=== PATIENT | male | born 1945 | race Caucasian/White ===

== ENCOUNTER 2016-07-13 09:22 | Inpatient (IN) | payer MEDICARE ==
[~2016-07-13] VITALS: Ht 182.9 cm; Wt 119.5 kg
--- NOTE | ~2016-07-13 | CN ---
PATIENT NAME:MAKENZIE CUNHA MEDICAL RECORD: [id number] : 46 LOCATION:D. D.2110 ADMIT DATE: 07/13/16 ACCOUNT: [id number] CONSULTING PHYSICIAN: ENRRIQUE MEZA MD REFERRING PHYSICIAN: MILE BARRERA M.D. DATE OF CONSULTATION: 07/15/2016 CONSULT REQUESTING PHYSICIAN: Chai Arriaza MD REASON FOR CONSULTATION: Acute exacerbation of chronic obstructive pulmonary disease, deep vein thrombosis, right lower extremity. HISTORY OF PRESENT ILLNESS: Mr. Cunha is a 70-year-old gentleman who has a history of recurrent DVT and he is status post Radha filter placement. The patient was on Coumadin that was on hold for 4 days and he came in with worsening swelling of the lower extremity. Also, he complains of cough, wheezing and shortness of breath. He still continues to smoke. REVIEW OF SYSTEMS: Mainly in the history of present illness. PAST MEDICAL HISTORY: 1. COPD. 2. Peripheral vascular disease. 3. Recurrent deep vein thrombosis. 4. History of cerebrovascular accident. 5. Peripheral neuropathy. 6. Gastroesophageal reflux disease. 7. Depression. PAST SURGICAL HISTORY: 1. Tonsillectomy. 2. Tympanoplasty. 3. Laminectomy. ALLERGIES: HE IS ALLERGIC TO NSAIDS, PENICILLIN, CEPHALEXIN, ENOXAPARIN, IODINE AND POLYMYXIN B. PRESENT MEDICATIONS: On [employer] was reviewed. PERSONAL AND SOCIAL HISTORY: The patient is still a current everyday smoker. He is in the process of quitting. He is a nondrinker. FAMILY HISTORY: Significant for cardiovascular diseases. PHYSICAL EXAMINATION: GENERAL: Now, the patient is lying comfortably at bed. He is not in acute distress. VITAL SIGNS: The blood pressure is 153/95, pulse is 90, respiration 20, temperature 97.3, SpO2 is 95% on room air. HEENT: Conjunctivae pink, sclerae nonicteric. NECK: Supple, no JVD. CHEST: Excursion is minimal on both sides. There is prolonged expiration with wheezing. HEART: Rhythm regular, normal sound, no murmur. ABDOMEN: Soft. Bowel sounds present. No hepatosplenomegaly. CONSULT REPORT [id number] MAKENZIE CUNHA RECTAL: Deferred. EXTREMITIES: No cyanosis. There is a pressure sore, stasis sore on the right leg. There is a 2+ pedal edema. CENTRAL NERVOUS SYSTEM: The patient is awake and alert. There is no obvious cranial nerve abnormality. The gait was not tested. CHEST RADIOGRAPH: There is infiltrate, possible atelectasis of right middle lobe. LABORATORY DATA: CBC: WBC 4.5, hemoglobin 14.7, hematocrit 45.7, platelet count 178. Chemistry: Sodium 138, potassium 4.8, BUN is 23, creatinine is 1, glucose 153. IMPRESSION: 1. Acute exacerbation of chronic obstructive pulmonary disease. 2. Pneumonia, right middle lobe. 3. [id number] deep vein thrombosis. 4. Tobacco dependence syndrome. 5. Gastroesophageal reflux disease. RECOMMENDATION: 1. The patient was counseled to quit smoking. 2. Discontinue doxycycline, start him on Levaquin IV. 3. Check the CT scan of the chest. 4. Methylprednisolone IV. 5. Brovana and budesonide nebulizer. 6. Albuterol ipratropium nebulizer. 7. Xarelto 15 mg b.i.d. for 21 days, then [address] Arriaza, once again thanks for involving me in the care of Mr. Cunha. TRANSINT:[id number] Voice Confirmation ID: [id number] DOCUMENT ID: [id number] ENRRIQUE MEZA MD CC: CHAI ARRIAZA MD [id number] DICTATION DATE: 07/15/16 1458 EQUITY STRUCTURER: 07/15/16 2331 ADM IN [facility] [address] [place] [address]
--- NOTE | ~2016-07-13 | EC ---
PATIENT:MAKENZIE DESAI DATE OF SERVICE: 07/13/16 SEX: M MEDICAL RECORD: [id number] DATE OF : [birth year] LOCATION:D. D.211 AGE OF PATIENT: 70 ADMISSION DATE: 07/13/16 REFERRING PHYSICIAN: INTERPRETING PHYSICIAN: SYDNEY PONCE M.D. ECHOCARDIOGRAM REPORT ECHO CHARGES 4 ECHO COMPLETE CLINICAL DIAGNOSIS: SYNCOPE ECHOCARDIOGRAPHIC MEASUREMENTS (adult normal given) AC root (d.<3.7cm) 3.2 LV Septum d (<1.2 cm> 1.3 Valve Excursion 1.6 LV Septum (systole) 1.8 Left Atria (s.<4.0cm> 2.6 LVPW d(<1.2cm) 1.2 RV (d.<2.3cm) 3.1 LVPW (sytole) 1.7 LV diastole(<5.6CM) 4.2 MV E-F(>70mm/sec) LV systole 1.4 LVOT Diameter 2.1 MV exc.(>10mm) Est.ejection fraction (50-75%) Pericardial Effusion N DOPPLER: LVIT A 93.0 E 58.0 LA RVSP LVOT 93.0 AOP1/2T Asc. Ao 136 RVOT RA PA AV Gradient Peak 7.4 AV Mean 3.4 AV Area 3.0 MV Gradient Peak 4.9 MV Mean 1.6 MV Area COMMENTS: Vacuum Extractor Operator: Derrick PALACIOOE Secured Entrance Monitor:Juan Jose Ponce TAPE# PACS DATE OF SERVICE: 07/15/2016 REFERRING PHYSICIAN: Bobby Parish MD. INDICATION: Syncope. DESCRIPTION: Left ventricle demonstrates left ventricular hypertrophy. No wall motion abnormalities are seen. Estimated ejection fraction is 55%. Mitral valve is structurally normal. There is no regurgitation or prolapse seen. Left atrium is normal size. The aortic valve is trileaflet. There is no stenosis or ECHOCARDIOGRAM REPORT [id number] MAKENZIE DESAI regurgitation seen. Right ventricle is normal size and function. Tricuspid valve is normal. There is no regurgitation noted. Right atrium is normal size. There is no pericardial effusion seen. IMPRESSION: 1. Left ventricular hypertrophy with preserved ejection fraction of 55%. 2. No valvular abnormalities are noted. TRANSINT:[id number] Voice Confirmation ID: [id number] DOCUMENT ID: [id number] SYDNEY PONCE M.D. CC: [id number] DICTATION DATE: 07/15/16 1540 BUFFING WHEEL INSPECTOR: 07/15/16 1441 DIS IN 07/19/[address] [facility] [address] [id number]
[~2016-07-13 09:22] MED LIST: CLEOCIN HCL300 MG PO; LYRICA200 MG PO; XARELTO10 MG PO; ZOLOFT100 MG PO; [UNRECOGNIZED DRUG - OTHER] SL
[2016-07-13 10:39] LABS: BASOPHILS 0.3 % (0-2); EOSINOPHILS 2.8 % (0-7); HEMATOCRIT 39.2 % (42.0-54.0); HEMOGLOBIN 13.4 g/dL (13.5-17.5); IMMATURE GRANULOCYTES 0.6 % (0-5); MCH 31.5 pg (26.0-34.0); MCHC 34.2 g/dL (31.0-37.0); MCV 92.2 fL (80.0-100.0); MEAN PLATELET VOLUME 10.4 fL (7.4-10.4); MONOCYTES 15.8 % (2-11); NEUTROPHILS 65.5 % (40-80); PLATELET COUNT 175 10x3/uL (130-400); RBC 4.25 10x6/uL (4.20-6.10); RDW 15.8 % (11.5-14.5); WBC 6.7 10x3/uL (4.8-10.8)
[2016-07-13 10:51] LABS: INR 1.56 (0.85-1.17); PROTIME 18.6 SECONDS (11.6-15.0)
[2016-07-13 11:05] LABS: ALBUMIN 1.9 g/dL (3.4-5.0); ALKALINE PHOSPHATASE 98 U/L (46-116); ALT (SGPT) 33 U/L (10-68); BILIRUBIN - TOTAL 0.22 mg/dL (0.2-1.3); CALC OSMOLALITY 279 mosm/kg (275-300); CALCIUM 8.4 mg/dL (8.5-10.1); CHLORIDE - SERUM 105 mmol/L (98-107); GLUCOSE 99 mg/dL (74-106); PROTEIN - SERUM 6.6 g/dL (6.4-8.2); SODIUM 139 mmol/L (136-145); UREA NITROGEN 18 mg/dL (7-18); eGFR NON AFRICAN AMERICAN 79 mL/min (90-120)
[2016-07-13 11:25] LABS: CREATINE KINASE 356 UL (21-232); MAGNESIUM - SERUM 1.8 mg/dL (1.8-2.4); PRO BNP 421 pg/mL (0-125)
[2016-07-13 11:26] LABS: CKMB 1.5 U/L (0.0-3.6); TROPONIN-I 0.017 ng/mL (0.000-0.060)
[2016-07-13 15:19] LABS: APPEARANCE CLEAR (CLEAR); BILIRUBIN NEGATIVE (NEGATIVE); COLOR YELLOW (YELLOW); GLUCOSE NEGATIVE (NEGATIVE); KETONE NEGATIVE (NEGATIVE); LEUKOCYTE ESTERASE NEGATIVE (NEGATIVE); NITRITE NEGATIVE (NEGATIVE); PROTEIN 3+ mg/dL (NEGATIVE); SPECIFIC GRAVITY 1.015 (1.005-1.020); UROBILINOGEN NORMAL (NORMAL)
[2016-07-13 15:20] LABS: BACTERIA NONE SEEN /hpf (NONE SEEN); EPITHELIAL CELLS 0-5 /hpf (0-5); RED CELLS - URINE 0-5 /hpf (0-5); WHITE CELLS - URINE NSEEN /hpf (0-5)
[2016-07-13] MEDS ORDERED: LASIX20 MG PO (18:49)
[2016-07-13] MEDS ORDERED: COUMADIN10 MG PO (18:50)
[2016-07-13 18:53] VITALS: BP 154/83; BMI 34.4
--- NOTE | 2016-07-13 19:07 | NUR ---
PATIENT BROUGHT TO ROOM 2109 WITH DYSPNEA AND COPD, HE HAS EDEMATOUS BILATERAL LEGS, HE HAS BANADAGE TO RIGHT LEG FOR WEEPING ARE, IV IS 20 G IN LEFT BREAST.
--- NOTE | 2016-07-13 19:08 | NUR ---
PROVIDED PATIENT WITH URINAL.
[2016-07-13 20:00] VITALS: BP 136/71
--- NOTE | 2016-07-13 23:50 | NUR ---
INIITAL ROUNDS COMPELTED AT 1915 HRS. PT HAD C/O PAIN TO BILAT LOWER LEGS. NS AT 15CC/HRA ND MORPHINE MDM DEVELOPER 1MG Q10 MINS WITH 10MG Q4HR LO INITIATED TO IV TO L BREAST. IV PATENT. O2 2LNC. GRACIE SPLOTCHES NOTED TO TORSO AND BACK. 2+ EDEMA TO LEGS. LOWER LEGS DARK WITH SORES NOTED. WEEPING SORES TO R LOWER LEG. DRESSING INTACT. PT CURRETNLY RESTING WITH EYES CLOSED. RESP EVEN AND REGULAR. SR UP X2, CALL LIGHT WITHIN REACH.
[2016-07-14] VITALS: BP 101/80
--- NOTE | 2016-07-14 00:56 | NUR ---
PT REFUSES TELEMETRY AT THIS TIME. SR PER CM. REFUSES SCD'S. CARDIAC MONITORL RETURNED TO AUTOMOBILE TESTER STATION. WILL CONTINUE TO MONITOR. SR UP X2, CALL LIGHT WITHIN REACH.
--- NOTE | 2016-07-14 03:38 | NUR ---
PT RESTING WITH EYES CLOSED. RESP EVEN AND REGULAR. SR UP X2, CALL LIGHT WITHIN REACH.
[2016-07-14 04:00] VITALS: BP 132/67
--- NOTE | 2016-07-14 04:36 | NUR ---
PT RESTING WITH EYES CLOSED. RESP EVEN AND REGULAR. SR UP X2, CALL LIGHT WITHIN REACH AND BED ALARM ON.
--- NOTE | 2016-07-14 05:46 | NUR ---
VSS THROUGHOUT NIGBT. PT STATES MORPHINE SOFTWARE SYSTEMS ANALYST CONTROLLING BILAT LEG PAIN. NEEDS MET; WILL CONTINUE TO MONITOR.
[2016-07-14 08:00] VITALS: BP 132/84
[2016-07-14 12:46] LABS: BASOPHILS 0.1 % (0-2); EOSINOPHILS 2.9 % (0-7); HEMATOCRIT 41.1 % (42.0-54.0); HEMOGLOBIN 13.2 g/dL (13.5-17.5); IMMATURE GRANULOCYTES 0.4 % (0-5); LYMPHOCYTES 16.3 % (15-50); MCH 30.3 pg (26.0-34.0); MCHC 32.1 g/dL (31.0-37.0); MONOCYTES 13.8 % (2-11); NEUTROPHILS 66.5 % (40-80); PLATELET COUNT 166 10x3/uL (130-400); RBC 4.36 10x6/uL (4.20-6.10); RDW 16.2 % (11.5-14.5); WBC 7.2 10x3/uL (4.8-10.8)
[2016-07-14 12:51] LABS: MCV 94.3 fL (80.0-100.0)
[2016-07-14 12:58] LABS: INR 1.71 (0.85-1.17)
[2016-07-14 13:09] LABS: CALC OSMOLALITY 283 mosm/kg (275-300); CALCIUM 7.9 mg/dL (8.5-10.1); CARBON DIOXIDE 32.6 mmol/L (21.0-32.0); CHLORIDE - SERUM 104 mmol/L (98-107); GLUCOSE 113 mg/dL (74-106); POTASSIUM - SERUM 4.2 mmol/L (3.5-5.1); SODIUM 141 mmol/L (136-145); UREA NITROGEN 17 mg/dL (7-18); eGFR NON AFRICAN AMERICAN 79 mL/min (90-120)
[2016-07-14 16:00] VITALS: BP 136/60
[2016-07-14 17:16] LABS: CKMB 1.2 U/L (0.0-3.6)
[2016-07-14 17:21] LABS: CREATINE KINASE 235 UL (21-232); TROPONIN-I < 0.017 ng/mL (0.000-0.060)
--- NOTE | 2016-07-14 19:11 | NUR ---
ALERT AND OREINTED X4. RESTING IN BED. DOPLER COMPLETE. CTA CANCELLED PER . RECENT SCAN COMPLETED 07/13/16 IN ER. EKG COMPLETE PLACED ON CHART. DENIES ANY NEEDS. HAND OFF REPORT TO ANUM BELL.
--- NOTE | 2016-07-14 20:08 | NUR ---
INITIAL ROUNDS COMPLETEDA T 191 HRS. PT RESTING WITH EYES CLOSED. RESP EVEN AND REGULAR. ASSESSMENT COMPLETED AT 194 HRS. IV TO L ROZ WITH NS AT 15CC/HR AND MORPHINE MANAGER OF PMO 1MG Q 10 MINUTES WITH 10 MG Q 4 HR LO. IV PATENT. LUNGS DIMINISHED IN BASES BILAT. GENERALIZED EDEMA NOTED. 2+ PITTING EDEMA TO LOWER LEGS. LOWER LEGS RED WITH SORES. L LOWER LEG DRESSING SATURATED. PT DENIES ANY DISCOMFORT AND REFUSES SCD'S. SR UP X2, CALL LIGHT WITHIN REACH.
--- NOTE | 2016-07-14 22:10 | NUR ---
PT STATING MORPHINE GAMING PIT BOSS NOT WORKING. EXPLAINED TO PT THAT HE IS MAXED OUT AT 10 MG. WILL CONTINUE TO MONITOR.
[2016-07-14 22:11] VITALS: BP 173/71
--- NOTE | 2016-07-14 22:40 | NUR ---
DRESSING TO R LEG CHANGED EARLIER IN SHIFT. 2 WOUNDS APPROX 2CM X3 CM AND 2CM X2CM NOTED TO ANTERIOR LOWER LEG. OOZING SMALL AMOUNT OF SEROUS FLUID. WOUNDS COVERED WITH ADAPTIC, 4X4'S AND WRAPPED IN BELINDA. PT TOLERATED ACTIVITY WELL.
[2016-07-14 23:37] LABS: CKMB 0.9 U/L (0.0-3.6); CREATINE KINASE 191 UL (21-232)
[2016-07-14 23:38] LABS: TROPONIN-I < 0.017 ng/mL (0.000-0.060)
[2016-07-15] VITALS: BP 157/72
--- NOTE | 2016-07-15 00:39 | NUR ---
PT RESTING WITH EYES CLOSED. RESP EVEN AND REGULAR. SR UPX2,CALL LIGHT WITHIN REACH.
--- NOTE | 2016-07-15 02:46 | NUR ---
PT RESTING WITH EYES CLOSED. RESP EVEN AND REGULAR. SR UP X2, CALL LIGHT WITHIN REACH.
--- NOTE | 2016-07-15 04:38 | NUR ---
COFFEE GIVEN PER REQUEST. NEW MORPHINE SYRINGE PLACED IN COATER SMOKING PIPE. WILL CONTINUE TO MONITOR.
[2016-07-15 06:16] LABS: BASOPHILS 0 % (0-2); EOSINOPHILS 0 % (0-7); HEMATOCRIT 45.5 % (42.0-54.0); HEMOGLOBIN 14.7 g/dL (13.5-17.5); IMMATURE GRANULOCYTES 0.4 % (0-5); LYMPHOCYTES 9.9 % (15-50); MCHC 32.3 g/dL (31.0-37.0); MCV 92.9 fL (80.0-100.0); MEAN PLATELET VOLUME 10.8 fL (7.4-10.4); MONOCYTES 1.7 % (2-11); PLATELET COUNT 178 10x3/uL (130-400); RDW 15.4 % (11.5-14.5); WBC 5.5 10x3/uL (4.8-10.8)
[2016-07-15 06:17] VITALS: BP 136/92
--- NOTE | 2016-07-15 06:26 | NUR ---
VSS THROUGHOUT NIGHT. PT STATED MORPHINE UNDERGROUND SUPERVISOR CONTROLLING PAIN. NEEDS MET; WILL CONTINUE TO MONITOR.
[2016-07-15 06:49] LABS: INR 1.54 (0.85-1.17); PROTIME 18.5 SECONDS (11.6-15.0)
[2016-07-15 07:47] LABS: CALCIUM 7.8 mg/dL (8.5-10.1); CARBON DIOXIDE 30.2 mmol/L (21.0-32.0); CHLORIDE - SERUM 102 mmol/L (98-107); CKMB 0.9 U/L (0.0-3.6); CREATINE KINASE 198 UL (21-232); GLUCOSE 153 mg/dL (74-106); SODIUM 138 mmol/L (136-145); eGFR NON AFRICAN AMERICAN 79 mL/min (90-120)
[2016-07-15 07:49] LABS: CALC OSMOLALITY 282 mosm/kg (275-300); TROPONIN-I < 0.017 ng/mL (0.000-0.060); UREA NITROGEN 23 mg/dL (7-18)
[2016-07-15 07:50] LABS: POTASSIUM - SERUM 4.8 mmol/L (3.5-5.1)
[2016-07-15 08:45] VITALS: BP 170/103
[2016-07-15 12:47] VITALS: BP 153/95
[2016-07-15 13:25] VITALS: Ht 182.9 cm; Wt 119.5 kg
[2016-07-15 17:26] VITALS: BP 183/106
--- NOTE | 2016-07-15 19:40 | NUR ---
ALERT/ORIENTED X 4. READING RECOVERY TEACHER AND RADIO ENGINEER ASSISTING HIM BACK INTO BED FROM . DENIES ANY NEEDS. PLACED CALL LIGHT AND BEDSIDE TABLE WITH PERSONAL ITEMS IN REACH.
[2016-07-15 19:45] VITALS: BP 144/75
--- NOTE | 2016-07-15 22:17 | NUR ---
GAVE A SNACK OF APPLESAUCE AND JER CRACKERS/PEANUT BUTTER PER REQUEST. NO OTHER NEEDS VOICED.
--- NOTE | 2016-07-16 00:15 | NUR ---
ADMIN SCHED MEDS AND DILAUDID 0.5 MG IV PER REQUEST FOR C/O LEG PAIN LEVEL 7 ON NUMBER SCALE, DESCRIBED BURNING, ACHING & THROBBING. REQUESTED A SANDWICH AND MORE ICE WATER.
[2016-07-16 00:29] VITALS: BP 135/78
--- NOTE | 2016-07-16 05:20 | NUR ---
RESTING WITH EYES CLOSED. AROUSES EASILY. DENIES ANY NEEDS.
[2016-07-16 05:53] LABS: BASOPHILS 0 % (0-2); EOSINOPHILS 0 % (0-7); HEMATOCRIT 42.6 % (42.0-54.0); HEMOGLOBIN 13.7 g/dL (13.5-17.5); IMMATURE GRANULOCYTES 0.3 % (0-5); LYMPHOCYTES 3.7 % (15-50); MCH 30.2 pg (26.0-34.0); MCHC 32.2 g/dL (31.0-37.0); MCV 93.8 fL (80.0-100.0); MEAN PLATELET VOLUME 10.4 fL (7.4-10.4); MONOCYTES 5.1 % (2-11); NEUTROPHILS 90.9 % (40-80); PLATELET COUNT 190 10x3/uL (130-400); RBC 4.54 10x6/uL (4.20-6.10); RDW 15.7 % (11.5-14.5)
[2016-07-16 06:04] LABS: INR 4.99 (0.85-1.17); WBC 9.6 10x3/uL (4.8-10.8)
[2016-07-16 06:12] LABS: CALCIUM 7.7 mg/dL (8.5-10.1); CARBON DIOXIDE 27.2 mmol/L (21.0-32.0); POTASSIUM - SERUM 4.2 mmol/L (3.5-5.1)
[2016-07-16 06:22] LABS: CREATININE - SERUM 1.3 mg/dL (0.6-1.3)
[2016-07-16 06:36] LABS: PROTIME 47.2 SECONDS (11.6-15.0)
[2016-07-16 09:12] VITALS: BP 142/68
--- NOTE | 2016-07-16 10:09 | NUR ---
WOUND CARE CONSULT: PT HAS TWO SCABBED AREAS ON HIS RIGHT LOWER LEG. HE STATES THEY STARTED BLISTERS (WHEN HIS LEGS BECAME EDEMATOUS A COUPLE WEEKS AGO) AND OPENED INTO SORES. BILATERAL LOWER LEGS ARE HYPERPIGMENTED TO JUST BELOW KNEES AND ARE HAIRLESS. RIGHT LEG IS TENDER TO THE TOUCH. PT STATES THE EDEMA HAS DECREASED AND WITH IT SO HAS THE "WEEPING". HE IS SITTING IN RECLINER WITH HIS LEGS ELEVATED. DUE TO HIS HX OF DVT WOUND CARE DOES NOT RECOMMEND APPLYING UNNA BOOTS, BUT IF EDEMA AND WEEPING RETURN WE CAN DO LOOSE WRAPS WITH 4X4S AND KERLIX. WOUND CARE WILL CONTINUE TO MONITOR.
[2016-07-16 12:11] VITALS: BP 148/93
--- NOTE | 2016-07-16 18:17 | NUR ---
ALERT AND ORIENTED X4. SITTING UP IN BED. COMPLAINS OF PAIN. DILAUDID FREQUENCY CHANGED TO Q4 INSTEAD OF Q6. REPORTS Q4 MIGHT BE TOO LONG WELL. IV ANTIBIOTICS INFUSING PER ORDER. DENIES ANY NEEDS. CONTINUE PLAN OF CARE AND SAFETY PRECAUTIONS.
--- NOTE | 2016-07-16 19:28 | NUR ---
ALERT/AWAKE WATCHING TV. REQUESTED PAIN MEDICATION FOR LEG PAIN LEVEL 7 ON NUMBER SCALE. IV IN L CHEST WITH NS INFUSING 15ML/HR. 02 AT 2L/NC. RR 20 EVEN U/L.
[2016-07-16 20:18] VITALS: BP 128/83
--- NOTE | 2016-07-16 23:40 | NUR ---
ADMIN DILAUDID 0.5MG IV PER REQUEST FOR C/O LEG PAIN LEVEL 7 ON NUMBER SCALE. SUPERVISOR INTERNATIONAL RESERVATIONS PRESENT IN ROOM TAKING VS. REQUESTED MORE ICE WATER.
[2016-07-16 23:57] VITALS: BP 146/84
--- NOTE | 2016-07-17 03:40 | NUR ---
ADMIN DILAUDID 0.5MG PER REQUEST FOR PAIN. REQUESTED FAN ADJ AND MORE ICE WATER. EMPTIED URINAL.
[2016-07-17 03:52] VITALS: BP 134/95
[2016-07-17 06:49] LABS: BASOPHILS 0 % (0-2); EOSINOPHILS 0 % (0-7); HEMATOCRIT 42.9 % (42.0-54.0); HEMOGLOBIN 13.8 g/dL (13.5-17.5); IMMATURE GRANULOCYTES 0.5 % (0-5); LYMPHOCYTES 3.9 % (15-50); MCH 29.7 pg (26.0-34.0); MCHC 32.2 g/dL (31.0-37.0); MCV 92.5 fL (80.0-100.0); MEAN PLATELET VOLUME 10.1 fL (7.4-10.4); MONOCYTES 3.6 % (2-11); PLATELET COUNT 180 10x3/uL (130-400); RBC 4.64 10x6/uL (4.20-6.10); RDW 15.8 % (11.5-14.5); WBC 8.2 10x3/uL (4.8-10.8)
[2016-07-17 07:14] LABS: INR 4.54 (0.85-1.17); PROTIME 43.7 SECONDS (11.6-15.0)
[2016-07-17 07:16] LABS: ALBUMIN 1.9 g/dL (3.4-5.0); BILIRUBIN - TOTAL 0.22 mg/dL (0.2-1.3); CALCIUM 7.1 mg/dL (8.5-10.1); CARBON DIOXIDE 29.1 mmol/L (21.0-32.0); CREATININE - SERUM 1.2 mg/dL (0.6-1.3); POTASSIUM - SERUM 4.1 mmol/L (3.5-5.1); PROTEIN - SERUM 6.2 g/dL (6.4-8.2)
[2016-07-17 07:30] VITALS: BP 142/79
[2016-07-17 12:30] VITALS: BP 148/82
--- NOTE | 2016-07-17 12:33 | NUR ---
Nutrition follow-up: Visited with pt this am re: unhappy with diet order for NCS Pt reports his blood glucose is not high and he wants his diet changed to regular. After chart review RDN changed diet to regular. Pt with 100% intake of meals; labs reviewed Wt: 253# Edema better. RDN following.
--- NOTE | 2016-07-17 14:13 | NUR ---
PATIENT RESTING QUIETLY WITH EYES CLOSED, RESPIRATIONS ARE DEEP AND EVEN. DID NOT DISTURB.
--- NOTE | 2016-07-17 15:10 | NUR ---
PATIENT IS RESTING WITH HOB UP IN SEMI FOWLERS. HAVE PROPPED HIS FEET UP ON TWO PILLOWS FOR COMFORT. IV DILAUDID GOVEN PER ORDERS. CALL LIGHT IS WITHIN HIS REACH. MONITORING.
[2016-07-17 16:30] VITALS: BP 150/77
[2016-07-17 19:00] VITALS: BP 136/79
--- NOTE | 2016-07-17 20:02 | NUR ---
PT RECEIVED LYING IN BED WATCHING TV AT THIS TIME. REQUESTED MEDICATION FOR PAIN PT RATES 07/24. ADMINISTERED 0.5 MG DILAUDID IVP PER ORDERS. ASSESSMENT COMPLETED PER FLOW SHEET AT THIS TIME. IV NOTED TO LEFT CHEST WALL INFUSING NS @ 15 CC/HR. PATENT. DRESSING CDI. HEART RRR. EXPIRATORY WHEEZES NOTED TO BILATERAL UPPER LUNG LOBES. LUNG SOUNDS DIMINISHED TO BILATERAL LOWER LOBES. BOWEL SOUNDS ACTIVE X4 QUADRENTS. REDDENED AREA WITH SCABS NOTED TO BLE. PT DENIES NEEDS AT THIS TIME. BED LOW. PHONE AND CALL LIGHT IN REACH. SRX2.
--- NOTE | 2016-07-17 20:40 | NUR ---
REASSESSED PTS PAIN AT THIS TIME. RATES PAIN 5/10. REQUESTS SANDWICH AT THIS TIME. DENIES OTHER NEEDS. BED LOW. PHONE AND CALL LIGHT IN REACH. SRX2.
--- NOTE | 2016-07-17 22:02 | NUR ---
PT RESTING QUIETLY AT THIS TIME WATCHING TV. DENIES NEEDS. BED LOW. PHONE AND CALL LIGHT IN REACH. SRX2.
--- NOTE | 2016-07-17 23:57 | NUR ---
PT SITTING UP IN BED WATCHING TV AT THIS TIME. ADMINISTERED DILAUDID 0.5 MG IVP PER ORDERS AT THIS TIME FOR PAIN PT RATES 5/10. ADMINISTERED LASIX IVP PER ORDERS AT THIS TIME WELL. PT REQUESTS ICE WATER. DENIES OTHER NEEDS. BED LOW. PHONE AND CALL LIGHT IN REACH. SRX2.
[2016-07-18] VITALS: BP 168/76
--- NOTE | 2016-07-18 01:51 | NUR ---
MERREM IVPB INITIATED AT THIS TIME PER ORDERS. PT RESTING QUIETLY WITH EYES CLOSED. RESPIRATIONS EVEN, NON-LABORED. NO ACUTE DISTRESS NOTED AT THIS TIME. BED LOW. PHONE AND CALL LIGHT IN REACH. SRX2.
--- NOTE | 2016-07-18 02:43 | NUR ---
PT RESTING QUIETLY AT THIS TIME WITH EYES CLOSED. RESPIRATIONS EVEN, NON-LABORED. NO ACUTE DISTRESS NOTED AT THIS TIME. BED LOW. PHONE AND CALL LIGHT IN REACH. SRX2.
--- NOTE | 2016-07-18 03:59 | NUR ---
ADMINISTERED DILAUDID IVP PER ORDERS AT THIS TIME FOR PAIN PT RATES 5/10. PT DENIES OTHER NEEDS. BED LOW. PHONE AND CALL LIGHT IN REACH. SRX2.
[2016-07-18 04:00] VITALS: BP 170/87
--- NOTE | 2016-07-18 04:30 | NUR ---
REASSESSED PTS PAIN AT THIS TIME. RATES PAIN 5/10. DENIES NEEDS. BED LOW. PHONE AND CALL LIGHT IN REACH. SRX2.
--- NOTE | 2016-07-18 05:35 | NUR ---
ADMINISTERED PROTONIX PO PER ORDERS AT THIS TIME. PT ALSO VOIDED APPROX 350 CC JOSE URINE AT THIS TIME. PT DENIES NEEDS. BED LOW. PHONE AND CALL LIGHT IN REACH. SRX2.
[2016-07-18 05:44] LABS: BASOPHILS 0 % (0-2); EOSINOPHILS 0 % (0-7); HEMATOCRIT 42.8 % (42.0-54.0); HEMOGLOBIN 13.6 g/dL (13.5-17.5); IMMATURE GRANULOCYTES 0.4 % (0-5); LYMPHOCYTES 4.5 % (15-50); MCH 29.5 pg (26.0-34.0); MCHC 31.8 g/dL (31.0-37.0); MCV 92.8 fL (80.0-100.0); MEAN PLATELET VOLUME 10.3 fL (7.4-10.4); MONOCYTES 13.2 % (2-11); NEUTROPHILS 81.9 % (40-80); PLATELET COUNT 190 10x3/uL (130-400); RBC 4.61 10x6/uL (4.20-6.10); RDW 16.1 % (11.5-14.5); WBC 7.4 10x3/uL (4.8-10.8)
[2016-07-18 05:45] LABS: INR 2.59 (0.85-1.17); PROTIME 27.9 SECONDS (11.6-15.0)
[2016-07-18 06:22] LABS: CARBON DIOXIDE 29.2 mmol/L (21.0-32.0); CREATININE - SERUM 1.4 mg/dL (0.6-1.3); POTASSIUM - SERUM 4.2 mmol/L (3.5-5.1)
[2016-07-18 06:30] LABS: CALCIUM 6.9 mg/dL (8.5-10.1)
--- NOTE | 2016-07-18 07:16 | NUR ---
PT SITTING UP IN BED WATCHING TV DENIES NEEDS WILL CONT TO MONITOR
[2016-07-18 07:17] LABS: MAGNESIUM - SERUM 2.1 mg/dL (1.8-2.4); PHOSPHOROUS 3.2 mg/dL (2.5-4.9)
[2016-07-18 08:00] VITALS: BP 182/81
--- NOTE | 2016-07-18 08:05 | NUR ---
SILVER SPRAY WORKER CAME TO ME WHILE I WAS IN ANOTHER ROOM SAYING THAT PT IS REQUESTING PAIN MEDS. WHEN FINISHED IN OTHER ROOM WENT TO PULL PAIN MEDICATION FOR PT, ON MY WAY TO PT ROOM HE IS SCREAMING AND CUSSING AND CONSTANTLY PRESSING CALL LIGHT. I ASKED PT WHAT HE NEEDED CALL LIGHT WAS ON. HE SCREAMED AT ME AND SAID "I WANT MY DAMN PAIN MEDS!". I TOLD PT THAT YES A SILVER SPRAY WORKER JUST CAME UP TO ME AND ASKED ME TO BRING THEM SO I AM HERE WITH THEM. HE SAID 'WELL I ASKED FOR THEM 45 DAMN MINUTES AGO! I ASKED YOU FOR THEM WHEN YOU CAME IN THIS MORNING" WHEN I ROUNDED I DID NOT HEAR PT ASK FOR ANYTHING, I ASKED PT IF HE NEEDED ANYTHING DURING AM ROUNDS AND HE DENIED NEEDS. CHARTED IN PREVIOUS NOTE. EVEN SO, IT WAS JUST TIME FOR PAIN MEDS TO BE GIVEN. PT ARGUING WITH STAFF YELLING AND CUSSING. PT WAS GIVEN AM MEDS AND PAIN MEDICATION PER EMAR.
--- NOTE | 2016-07-18 09:06 | NUR ---
CAN HEAR PT SCREAMING INTO TELEPHONE FROM NURSING DESK AND SURROUNDING PT ROOMS. PTS ARE COMPLAINING ABOUT NOISE
--- NOTE | 2016-07-18 11:34 | NUR ---
CECILIA ALEJANDRE APN ADDED NORCO 10 FOR BREAKTHROUGH PAIN. PT CO PAIN STILL GENERALIZED 10/24. NOT TIME FOR DILAUDID IV YET UNTIL 1200, TOLD PT ABOUT THE NORCO AND HE COULD HAVE THAT AND IN 1 HOUR AFTERWARDS WE WILL GIVE DILAUDID. PT REFUSED-HE WANTS TO DO DILAUDID AT 1200 FIRST, THEN DO NORCO AFTERWARDS.
[2016-07-18 12:00] VITALS: BP 149/77
--- NOTE | 2016-07-18 15:26 | NUR ---
Patient Name: MAKENZIE DESAI Admission Status: ER Accout number: [id number] Admission Date: 07-13-2016 : 1945 Admission Diagnosis:SYNCOPE AND COLLAPSE Attending: CYNTHIA Current LOS: 5 Anticipated DC Date: 07-19-2016 Planned Disposition: Home Primary Insurance: MEDICARE A & B Discharge Planning Comments: * Is the patient Alert and Oriented? Yes 0 * How many steps to enter\exit or inside your home? RAMP 0 * PCP DR. CHINO, [facility] 0 * Pharmacy [facility] 0 * Preadmission Environment Home Alone 0 * ADLs Independent 0 * Equipment None 0 * Other Equipment [facility] * List name and contact numbers for known caregivers / representatives who currently or will assist patient after discharge: ANGEL SEPULVEDA, DAUGHTER, 0 * Community resources currently utilized None 0 * Please name any agencies selected above. NONE 0 * Additional services required to return to the preadmission environment? No 0 * Can the patient safely return to the preadmission environment? Yes 0 * Has this patient been hospitalized within the prior 30 days at any hospital? No 0 CM MET WITH PT IN ROOM TO DISCUSS DISCHARGE PLANNING AND NEEDS. PT REPORTS LIVING AT HOME INDEPENDENTLY AND ALONE. PT REPORTS HE HAS BEEN FALLING AT HOME RECENTLY. PT HAS NO MEDICAL EQUIPMENT AND NO OUTSIDE SERVICES ASSISTING IN THE HOME. CM DISCUSSED AVAILABILITY OF HOME HEALTH, REHAB SERVICES AND MEDICAL EQUIPMENT. PT DENIES DISCHARGE NEEDS, REPORTS HE GOT OUT OF [place] [facility] TWO WEEKS AGO AND IS IN THE PROCESS OF REESTABLISHING CARE WITH THE [facility]. DR. ASH INFORMED PT HE WILL NEED XERALTO AT DISCHARGE, PT REPORTS HE HAS RECEIVED IT FROM THE VA IN THE PAST AND IT REQUIRED A PHARMACY CONSULT AT [place] FOR REVIEW PRIOR TO THE [facility] PROVIDING THE MEDICATION; CM PROVIDED PT WITH XERALTO PRESCRIPTION ASSISTANCE AND COPAY PROGRAM INFORMATION. PT REPORTS HIS DAUGHTER WILL PICK HIM UP FOR DISCHARGE HOME HE WILL NOT FEEL SAFE RIDING HIS MOTORCYCLE HOME THAT IS IN THE PARKING LOT HERE. PT REPORTS REFUSING TRANSFER TO THE VA UPON ADMISSION AND DOES NOT WANT TRANSFER NOW. IMPORTANT MESSAGE FROM MEDICARE PROVIDED AND EXPLAINED. PT REPORTS HE WILL TAKE PRESCRIPTIONS TO [facility] TO SEE IF THEY CAN GET CONVERSION FOR VA BENEFIT AT DISCHARGE, IF NOT, HE IS TAKING THEM TO THE VA FOR CONVERSION AND FILLING. PT REPORTS HE WILL HAVE FRIENDS COMING TO HIS HOME AND CHECKING ON HIM POST DISCHARGE. PT PLANS TO DISCHARGE HOME, WILL FOLLOW UP WITH [facility] FOR ASSISTANCE. Silverware Assembler: Broderick Yo
[2016-07-18 16:00] VITALS: BP 185/89
--- NOTE | 2016-07-18 17:19 | NUR ---
PT SITTING UP IN BED EATING DINNER
--- NOTE | 2016-07-18 19:25 | NUR ---
Received patient sitting up in bed watching TV. Respirations easy and regular on room air, aware he can use his oxygen if he gets SOB. Denies SOB, pain or discomfort at this time but told nurse that he needs his pain medications quite regularly to manage his pain. Aware that his Dilaudid is next due @2012. Urinal emptied for 350mls clear yellow colored urine. PIV in left chest infusing NS @10ml/hr. No signs of infection or infiltration. Will continue to monitor.
[2016-07-18 20:00] VITALS: BP 137/71
--- NOTE | 2016-07-18 20:28 | NUR ---
Given Dilaudid 0.5mg IV for complaints of bilateral leg pain, worse in right and right side pain rated as 8/10. Legs edematous and reddened 3+ with abrasions on lower legs and one wound on right thigh with dressing over that is C/D/I. Will monitor for effectiveness.
--- NOTE | 2016-07-18 23:34 | NUR ---
Patient is resting in bed watching TV and talking on his phone, relaxed demeanor, states pain level is down to a 4 or 5/10.
[2016-07-19] VITALS: BP 140/85
--- NOTE | 2016-07-19 00:28 | NUR ---
Given Dilaudid 0.5mg IV for pain level 8/10, in legs and right side. Given his lasix diluted in NS by IV as well. States has been sleeping between analgesic doses. Hopeful of better sleep tonight.
--- NOTE | 2016-07-19 01:48 | NUR ---
Given [place] tab 10-325mg for complaints of pain 08/24, same areas. States effectiveness of Dilaudid started to wear off. IVPB antibiotic hung and is infusing well.
--- NOTE | 2016-07-19 03:31 | NUR ---
Patient in bed with eyes closed, respirations unlabored, deemed to be sleeping at this time.
[2016-07-19 04:00] VITALS: BP 138/69
--- NOTE | 2016-07-19 04:56 | NUR ---
Given Dilaudid 0.5mg for pain rated 6/10 mostly in right leg and right side but also in left leg, sharp dull aching.
[2016-07-19 05:19] LABS: BASOPHILS 0.1 % (0-2); EOSINOPHILS 0 % (0-7); HEMATOCRIT 42.4 % (42.0-54.0); HEMOGLOBIN 13.5 g/dL (13.5-17.5); LYMPHOCYTES 12.5 % (15-50); MCH 29.8 pg (26.0-34.0); MCHC 31.8 g/dL (31.0-37.0); MCV 93.6 fL (80.0-100.0); MEAN PLATELET VOLUME 10.9 fL (7.4-10.4); MONOCYTES 12.8 % (2-11); NEUTROPHILS 72.6 % (40-80); PLATELET COUNT 200 10x3/uL (130-400); RBC 4.53 10x6/uL (4.20-6.10); RDW 16.3 % (11.5-14.5); WBC 8.1 10x3/uL (4.8-10.8)
[2016-07-19 05:31] LABS: INR 1.65 (0.85-1.17); PROTIME 19.5 SECONDS (11.6-15.0)
[2016-07-19 05:35] LABS: ANION GAP 9.2 mmol/L (8-16); CALCIUM 7.2 mg/dL (8.5-10.1); CARBON DIOXIDE 31.6 mmol/L (21.0-32.0); CREATININE - SERUM 1.2 mg/dL (0.6-1.3); POTASSIUM - SERUM 3.8 mmol/L (3.5-5.1)
--- NOTE | 2016-07-19 05:40 | NUR ---
Resting quietly, reports comfortable at this time, pain still present but has lessened considerably.
--- NOTE | 2016-07-19 05:46 | NUR ---
On electrolyte protocol, Phophorous, Magnesium, Sodium, and Potassium WNL (within normal limits). Calcium low @ 6.9, INR = 2.59 and PT = 27.9
--- NOTE | 2016-07-19 07:05 | NUR ---
PT SITTING UP IN BED SLEEPING NO S/S DISTRESS NOTED WILL CONT TO MONITOR
[2016-07-19 08:00] VITALS: BP 141/74
[2016-07-19] MEDS ORDERED: XARELTO15 MG PO (11:30)
[2016-07-19] MEDS ORDERED: SYMBICORT 16010.2 GM INH (11:31)
[2016-07-19] MEDS ORDERED: PREDNISONE10 MG PO (11:31)
[2016-07-19] MEDS ORDERED: LEVAQUIN750 MG PO (11:41)
[2016-07-19] MEDS ORDERED: HYDROCODONE-APA1 TAB PO (13:26)
--- NOTE | 2016-07-19 14:02 | NUR ---
WENT OVER DC PAPERWORK WITH PT PT VERBALIZES UNDERSTANDING. DC PIV IN LEFT CHEST WITH CATH TIP INTACT, PT WAS GIVEN ALL WRITTEN SCRIPTS INCLUDING NORCO SCRIPT. PT DAUGHTER WHEELED HIM OUT IN WHEELCHAIR.
== END 2016-07-19 14:05 | disposition home or self-care (01) | DRG 190 ==
LOC: D.ER 09:22 → D.M2 17:11
PROVIDERS: Emergency Medicine; ADMIT Family Medicine
DX: J44.0 Chronic obstructive pulmonary disease with (acute) lower respiratory infection (principal); J18.9 Pneumonia, unspecified organism; I82.503 Chronic embolism and thrombosis of unspecified deep veins of lower extremity, bilateral; F17.203 Nicotine dependence unspecified, with withdrawal; J44.1 Chronic obstructive pulmonary disease with (acute) exacerbation; Z79.01 Long term (current) use of anticoagulants; I87.2 Venous insufficiency (chronic) (peripheral); K21.9 Gastro-esophageal reflux disease without esophagitis; G62.9 Polyneuropathy, unspecified; F32.9 Major depressive disorder, single episode, unspecified; Z86.73 Personal history of transient ischemic attack (TIA), and cerebral infarction without residual deficits

== ENCOUNTER 2016-07-23 15:14 | Inpatient (IN) | payer MEDICARE ==
[~2016-07-23] VITALS: Ht 182.9 cm; Wt 109.1 kg
--- NOTE | ~2016-07-23 | CN ---
PATIENT NAME:MAKENZIE CUNHA MEDICAL RECORD: [id number] : 47 LOCATION:D.MS Lu2205 ADMIT DATE: 07/23/16 ACCOUNT: [id number] CONSULTING PHYSICIAN: ENRRIQUE MEZA MD REFERRING PHYSICIAN: BLAINE FIGUEROA MD DATE OF CONSULTATION: 07/24/2016 CONSULT REQUESTING PHYSICIAN: Dr. Blaine Figueroa. REASON FOR CONSULTATION: COPD, shortness of breath. HISTORY OF PRESENT ILLNESS: Mr. Cunha is a 71-year-old gentleman who has a history of COPD, was hospitalized for pneumonia. He also has recurrent DVT and pulmonary embolism. The patient was discharged home with a p.o. steroid diuretics and antibiotic. The patient did not fill his prescription. He came in with more swelling and shortness of breath. He did not take any of his anticoagulant. Also, he is complaining of chest pain. REVIEW OF SYSTEMS: Mainly in the history of present illness. PAST MEDICAL HISTORY: 1. CVA. 2. Peripheral neuropathy. 3. Peripheral vascular disease. 4. History of recurrent DVT. 5. History of cerebrovascular accident. 6. Peripheral neuropathy. 7. Gastroesophageal reflux disease. 8. Depression. PAST SURGICAL HISTORY: 1. Tonsillectomy. 2. Tympanoplasty. 3. Laminectomy. ALLERGIES: HE IS ALLERGIC TO NSAID, PENICILLIN, CEPHALEXIN, KEFLEX ENOXAPARIN, IODINE AND POLYMYXIN B. PRESENT MEDICATIONS: [employer] is reviewed. PERSONAL AND SOCIAL HISTORY: The patient is a current everyday smoker. He is a nondrinker. FAMILY HISTORY: Significant for cardiovascular diseases. PHYSICAL EXAMINATION: GENERAL: Now, the patient is lying comfortably in bed. He is not in acute distress. VITAL SIGNS: The blood pressure is 133/74, pulse is 84, respirations 20, temperature 97.5, SPO2 is 96% on room air. HEENT: Conjunctivae are pink. Sclerae nonicteric. NECK: Supple, no JVD. CHEST: Excursion is minimal on both sides. There is a crackle at the right mid lung. HEART: Rhythm regular, normal sound, no murmur. Grade II/ systolic murmur. CONSULT REPORT [id number] MAKENZIE CUNHA ABDOMEN: Soft. Bowel sounds present. No hepatosplenomegaly. RECTAL: Deferred. EXTREMITIES: There are 3+ pedal edema. CENTRAL NERVOUS SYSTEM: The patient is awake and alert. There is no obvious cranial nerve abnormality. The gait was not tested. LABORATORY DATA: CBC: The WBC is 7.1, hemoglobin 13.7, hematocrit 42.5, the platelet count 191. Chemistry: Sodium 140, potassium 4.8, chloride 105, BUN is 19, creatinine 0.9, albumin is 1.6. IMPRESSION: 1. Acute exacerbation of chronic obstructive pulmonary disease. 2. Pneumonia, right middle lobe and upper lobe, possible community-acquired pneumonia. 3. History of pulmonary embolism. 4. Deep venous thrombosis, which is recurrent. 5. Gastroesophageal reflux. 6. Peripheral vascular disease. RECOMMENDATION: 1. Start him on Xarelto 15 mg b.i.d. and start him on Levaquin and I will hold on cefepime, the patient has ALLERGY TO CEPHALEXIN. Supplemental oxygen. Start him on albuterol/ipratropium nebulizer. Start him on Brovana and budesonide nebulizer. 2. Diuresis. Follow labs and chest radiograph. Dr. Figueroa, once again, thanks for involving me in the care of Mr. Cunha. TRANSINT:[id number] Voice Confirmation ID: [id number] DOCUMENT ID: [id number] ENRRIQUE MEZA MD CC: BLAINE FIGUEROA MD [id number] DICTATION DATE: 07/24/161458 HEEL EMERY BUFFER: 07/24/16 0843 ADM IN [facility] [address] [id number]
[~2016-07-23 15:14] MED LIST changes: +COUMADIN10 MG PO; +HYDROCODONE-APA1 TAB PO; +LASIX20 MG PO; +LEVAQUIN750 MG PO; +PREDNISONE10 MG PO; +SYMBICORT 16010.2 GM INH; +XARELTO15 MG PO
[2016-07-23 16:19] LABS: BASOPHILS 0 % (0-2); EOSINOPHILS 1.5 % (0-7); HEMATOCRIT 42.7 % (42.0-54.0); HEMOGLOBIN 13.8 g/dL (13.5-17.5); LYMPHOCYTES 16.4 % (15-50); MCH 30.1 pg (26.0-34.0); MCHC 32.3 g/dL (31.0-37.0); MCV 93.2 fL (80.0-100.0); MEAN PLATELET VOLUME 10.7 fL (7.4-10.4); MONOCYTES 9.9 % (2-11); NEUTROPHILS 70.2 % (40-80); PLATELET COUNT 197 10x3/uL (130-400); RBC 4.58 10x6/uL (4.20-6.10); RDW 15.7 % (11.5-14.5); WBC 7.6 10x3/uL (4.8-10.8)
[2016-07-23 16:37] LABS: ALBUMIN 1.6 g/dL (3.4-5.0); ALKALINE PHOSPHATASE 99 U/L (46-116); ALT (SGPT) 50 U/L (10-68); BILIRUBIN - TOTAL 0.29 mg/dL (0.2-1.3); CALC OSMOLALITY 279 mosm/kg (275-300); CALCIUM 7.9 mg/dL (8.5-10.1); CARBON DIOXIDE 29.9 mmol/L (21.0-32.0); CHLORIDE - SERUM 105 mmol/L (98-107); CREATININE - SERUM 0.8 mg/dL (0.6-1.3); POTASSIUM - SERUM 4.4 mmol/L (3.5-5.1); PROTEIN - SERUM 5.8 g/dL (6.4-8.2); SODIUM 139 mmol/L (136-145); UREA NITROGEN 20 mg/dL (7-18); eGFR NON AFRICAN AMERICAN > 90 mL/min (90-120)
[2016-07-23 16:40] LABS: GLUCOSE 80 mg/dL (74-106)
[2016-07-23 16:45] LABS: CREATINE KINASE 188 UL (21-232); PRO BNP 276 pg/mL (0-125)
[2016-07-23 16:49] LABS: TROPONIN-I 0.016 ng/mL (0.000-0.060)
[2016-07-23 21:43] VITALS: BP 144/72; Ht 182.9 cm; Wt 109.1 kg
[2016-07-24 08:16] VITALS: BP 136/74
[2016-07-24 10:04] LABS: BASOPHILS 0.1 % (0-2); EOSINOPHILS 1.7 % (0-7); HEMATOCRIT 42.5 % (42.0-54.0); HEMOGLOBIN 13.7 g/dL (13.5-17.5); LYMPHOCYTES 17.2 % (15-50); MCH 29.9 pg (26.0-34.0); MCHC 32.2 g/dL (31.0-37.0); MCV 92.8 fL (80.0-100.0); MEAN PLATELET VOLUME 11.1 fL (7.4-10.4); MONOCYTES 11.9 % (2-11); NEUTROPHILS 67.1 % (40-80); PLATELET COUNT 191 10x3/uL (130-400); RBC 4.58 10x6/uL (4.20-6.10); WBC 7.1 10x3/uL (4.8-10.8)
[2016-07-24 10:37] LABS: ALBUMIN 1.6 g/dL (3.4-5.0); ALKALINE PHOSPHATASE 94 U/L (46-116); ALT (SGPT) 44 U/L (10-68); BILIRUBIN - TOTAL 0.33 mg/dL (0.2-1.3); CALC OSMOLALITY 284 mosm/kg (275-300); CALCIUM 7.5 mg/dL (8.5-10.1); CARBON DIOXIDE 29.3 mmol/L (21.0-32.0); CHLORIDE - SERUM 105 mmol/L (98-107); CREATININE - SERUM 0.9 mg/dL (0.6-1.3); POTASSIUM - SERUM 4.8 mmol/L (3.5-5.1); PROTEIN - SERUM 5.2 g/dL (6.4-8.2); SODIUM 140 mmol/L (136-145); UREA NITROGEN 19 mg/dL (7-18); eGFR NON AFRICAN AMERICAN 89 mL/min (90-120)
[2016-07-24 10:39] LABS: GLUCOSE 175 mg/dL (74-106)
[2016-07-24 12:22] VITALS: BP 141/72
[2016-07-24 13:12] LABS: CKMB 1.4 U/L (0.0-3.6); CREATINE KINASE 125 UL (21-232); TROPONIN-I < 0.017 ng/mL (0.000-0.060)
[2016-07-24 16:31] VITALS: BP 124/75
[2016-07-24 18:31] LABS: CKMB 1.1 U/L (0.0-3.6); CREATINE KINASE 82 UL (21-232)
[2016-07-24 18:32] LABS: TROPONIN-I < 0.017 ng/mL (0.000-0.060)
[2016-07-24 20:00] VITALS: BP 138/67
[2016-07-25 01:57] LABS: CREATINE KINASE 74 UL (21-232)
[2016-07-25 01:59] LABS: TROPONIN-I < 0.017 ng/mL (0.000-0.060)
[2016-07-25 04:00] VITALS: BP 146/67
[2016-07-25 05:38] LABS: BASOPHILS 0 % (0-2); EOSINOPHILS 0 % (0-7); HEMATOCRIT 50.6 % (42.0-54.0); HEMOGLOBIN 16.4 g/dL (13.5-17.5); LYMPHOCYTES 6.9 % (15-50); MCH 30.3 pg (26.0-34.0); MCHC 32.4 g/dL (31.0-37.0); MCV 93.4 fL (80.0-100.0); MONOCYTES 4.3 % (2-11); NEUTROPHILS 87.8 % (40-80); PLATELET COUNT 164 10x3/uL (130-400); RBC 5.42 10x6/uL (4.20-6.10); RDW 15.7 % (11.5-14.5); WBC 6.8 10x3/uL (4.8-10.8)
[2016-07-25 06:00] LABS: ALBUMIN 1.6 g/dL (3.4-5.0); ALKALINE PHOSPHATASE 106 U/L (46-116); ALT (SGPT) 38 U/L (10-68); CALC OSMOLALITY 283 mosm/kg (275-300); CALCIUM 7.6 mg/dL (8.5-10.1); CHLORIDE - SERUM 104 mmol/L (98-107); GLUCOSE 148 mg/dL (74-106); PROTEIN - SERUM 5.6 g/dL (6.4-8.2); SODIUM 140 mmol/L (136-145); UREA NITROGEN 19 mg/dL (7-18); eGFR NON AFRICAN AMERICAN 78 mL/min (90-120)
[2016-07-25 06:07] LABS: BILIRUBIN - TOTAL 0.02 mg/dL (0.2-1.3)
[2016-07-25 08:44] VITALS: BP 132/85
[2016-07-25] MEDS ORDERED: TESSALON PERLE100 MG PO (10:42)
[2016-07-25] MEDS ORDERED: PULMICORT0.5 MG/21 UPD (10:42)
[2016-07-25] MEDS ORDERED: MUCINEX600 MG PO (10:42)
[2016-07-25] MEDS ORDERED: LASIX40 MG PO (10:43)
[2016-07-25 12:24] VITALS: BP 170/80
[2016-07-25] MEDS ORDERED: LEVOFLOXAC750 MG/150 IV (16:22)
[2016-07-25] MEDS ORDERED: BROVANA15 MCG/2 M INH (16:23)
[2016-07-25] MEDS ORDERED: IPRAT-ALBUT 0.5-3 ML UPD (16:23)
[2016-07-25] MEDS ORDERED: NICODERM C1 PATCH .1 TRANSDERM (16:24)
[2016-07-25] MEDS ORDERED: FLORAJEN3 CAPS460 MG PO (16:25)
[2016-07-25] MEDS ORDERED: ZOFRAN4 MG PO (16:26)
[2016-07-25 16:31] VITALS: BP 153/85
== END 2016-07-25 18:30 | DRG 190 ==
LOC: D.ER 15:14 → D.MS 17:32
PROVIDERS: Emergency Medicine; ADMIT Emergency Medicine
DX: J44.0 Chronic obstructive pulmonary disease with (acute) lower respiratory infection (principal); J18.9 Pneumonia, unspecified organism; I82.411 Acute embolism and thrombosis of right femoral vein; F17.203 Nicotine dependence unspecified, with withdrawal; F11.20 Opioid dependence, uncomplicated; J44.1 Chronic obstructive pulmonary disease with (acute) exacerbation; K21.9 Gastro-esophageal reflux disease without esophagitis; I73.9 Peripheral vascular disease, unspecified; Z86.711 Personal history of pulmonary embolism; G62.9 Polyneuropathy, unspecified; T40.2X5A Adverse effect of other opioids, initial encounter; Z79.01 Long term (current) use of anticoagulants; Z86.73 Personal history of transient ischemic attack (TIA), and cerebral infarction without residual deficits

== ENCOUNTER 2016-07-25 17:26 | Inpatient (IN) | payer MEDICARE ==
[~2016-07-25] VITALS: Ht 182.9 cm; Wt 119.7 kg
[~2016-07-25 17:26] MED LIST changes: +BROVANA15 MCG/2 M INH; +FLORAJEN3 CAPS460 MG PO; +IPRAT-ALBUT 0.5-3 ML UPD; +LASIX40 MG PO; +LEVOFLOXAC750 MG/150 IV; +MUCINEX600 MG PO; +NICODERM C1 PATCH .1 TRANSDERM; +PULMICORT0.5 MG/21 UPD; +TESSALON PERLE100 MG PO; +ZOFRAN4 MG PO
--- NOTE | 2016-07-25 19:50 | NUR ---
PT DISTRAUGHT, ANGRY REGARDING MOVE TO THIS UNIT AND PAIN MEDICATION Q4 HOUR NOT CONTINUED. PT CURSING TOWARDS STRING TOP SEALER. PT DISCLOSED STATES THAT HE WANTS TO GO AMA, THEN PAUSES AND STATES HE DOESN'T HAVE ANY PLACE TO GO. PT STATES HE DOESN'T UNDERSTAND HOW HIS MEDICATIONS CHANGED WHEN HE IS IN THE SAME HOSPITAL. PT LACKS REASONING ABILITY AT THIS TIME RELATED TO CHANGE OF UNIT AND CHANGE IN CARE. PT EXPRESSES ANGER AND FRUSTRATION WITH DAUGHTER, WHO HE BELIEVES BROUGHT HIM HERE AND DROPPED HIM OFF AND HAS TAKEN HIS HEARING AIDS, GLASSES AND STATES EVEN HIS SHOES. PT HAS A BOX OF ITEMS ON BEDSIDE TABLE. CONTACTED INTERNATIONAL SALES MANAGER TO VISIT WITH PATIENT.
[2016-07-25 20:05] VITALS: BP 159/91
--- NOTE | 2016-07-25 20:30 | NUR ---
PT HOSTILE, [facility]. OBTAINED NEW ORDERS FROM DR. MCCLOUD. PT MEDICATED FOR PAIN, PT STATES HE DOENS'T NEED ANYTHING FOR ANXIETY. PT BEGAN TO DEESCULATE AND PARTICATE IN ADMISSION PROCESS.
--- NOTE | 2016-07-25 21:20 | NUR ---
PT CALMER WITH INCREASED REASONING, PT STATES HE IS STILL IN PAIN RATING 10/10. PT REQUESTS ATIVAN.
[2016-07-25 21:22] VITALS: BP 159/91; BMI 34.0
--- NOTE | 2016-07-26 02:23 | NUR ---
PT RESTING QUIETLY, EYES CLOSED, SOFT SNORING AUDIBLE, LYING IN SUPINE POSITION.
[2016-07-26 06:50] LABS: BASOPHILS 0.1 % (0-2); EOSINOPHILS 0.4 % (0-7); HEMATOCRIT 40.5 % (42.0-54.0); HEMOGLOBIN 13.4 g/dL (13.5-17.5); IMMATURE GRANULOCYTES 1.2 % (0-5); LYMPHOCYTES 9.2 % (15-50); MCH 30.8 pg (26.0-34.0); MCHC 33.1 g/dL (31.0-37.0); MCV 93.1 fL (80.0-100.0); MEAN PLATELET VOLUME 10.4 fL (7.4-10.4); MONOCYTES 8.9 % (2-11); NEUTROPHILS 80.2 % (40-80); PLATELET COUNT 175 10x3/uL (130-400); RBC 4.35 10x6/uL (4.20-6.10)
--- NOTE | 2016-07-26 06:53 | NUR ---
Pt watching tv, pt c/o pain, would like to speak to physician regarding pain management.
[2016-07-26 06:55] LABS: WBC 10.7 10x3/uL (4.8-10.8)
[2016-07-26 07:08] LABS: ANION GAP 8.4 mmol/L (8-16); CALCIUM 7.7 mg/dL (8.5-10.1); CARBON DIOXIDE 30.2 mmol/L (21.0-32.0); CREATININE - SERUM 1.1 mg/dL (0.6-1.3); POTASSIUM - SERUM 4.6 mmol/L (3.5-5.1)
--- NOTE | 2016-07-26 08:00 | NUR ---
Verbalized name and , patient is SILETZ TRIBE, no distress assessed, has oxygen at bedside from trnasfer, has not worn, O2 sat 97%. No distress assessed. Call light within reach, urinal at bedside.
[2016-07-26 10:19] VITALS: Ht 182.9 cm; Wt 119.7 kg
[2016-07-26 10:48] VITALS: BP 135/83
--- NOTE | 2016-07-26 12:35 | NUR ---
Sitting up in W/C prn pain medication given for complaints of pain to legs. Call light within reach, scheduled for therapy eval at 1300.
--- NOTE | 2016-07-26 17:30 | NUR ---
Patient unable to eat supper that was brought to him due to having no teeth, called dietary to get him a mechanical soft diet. tray was delivered to patient, per dietary what patient requested.
--- NOTE | 2016-07-26 18:30 | NUR ---
Patient states he did not eat what dietary brought him on second tray, angry and is now attempting to order delivery to room. Asked patient if he would like soup and crackers, sherbert, jello, pudding items that are on floor. States " No, don't worry about it." Attempts to get patient food items with him refusing items.
--- NOTE | 2016-07-26 18:36 | NUR ---
Sitting in W/C at bedside, able to self propel. No distress. Verbalized no needs. Call light within reach.
--- NOTE | 2016-07-26 20:10 | NUR ---
PT C/O HUNGRY, STATE CAN'T EAT SUPPER BECAUSE THE FOOD IS TOO HARD. OFFERED PT ALL KIND OF SNACK IN REFRIGERATOR. PT REFUSED.
--- NOTE | 2016-07-26 21:10 | NUR ---
PT STATE LIKE TO HAVE A CUP OF COFFEE AND ICE CREAM. A CUP COFFEE AND ICE CREAM OFFERED.
[2016-07-27 02:38] VITALS: BP 154/83
--- NOTE | 2016-07-27 03:19 | NUR ---
PT. IN BED WITH HOB UP FOR COMFORT WITH EYES CLOSED AND RESP. DEEP AND EVEN. CALL LIGHT WITHIN REACH. IV OF N.S. AT KVO RATE INFUSING WITHOUT ANY ALARMS.
--- NOTE | 2016-07-27 03:42 | NUR ---
PT REST QUIETLY IN BED, EYE CLOSE, BED IN LOW POSITION, CALL LIGHT WITHIN REACH.
--- NOTE | 2016-07-27 09:12 | NUR ---
SITTING UP IN BED WATCHING TV. ATE SOME BREAKFAST. REFUSED MOST OF HIS AM MEDS. RLE HAS X2 LARGE BLACK SCABS ON ANTERIOR ASPECT. BOTH LOWER LEGS ARE DISCOLORED TO ALMOST BLACK. NO PEDAL PULSES NOTED BUT CAP REFILL TO TOES <3 SECONDS. HE C/O NUMBNESS TO BLE. CALL LIGHT IN REACH
[2016-07-27 10:53] VITALS: BP 99/54
--- NOTE | 2016-07-27 14:57 | RHP ---
PATIENT: MAKENZIE DESAI MEDICAL RECORD: [id number] ACCOUNT: [id number] LOCATION:[id number] : 47 ADMISSION DATE: 07/25/16 REHABILITATION HISTORY AND PHYSICAL EXAMINATION POST ADMISSION PHYSICIAN EXAMINATION DATE OF ADMISSION TO REHABILITATION: 07/25/2016 ADMITTING DIAGNOSIS: Acute exacerbation of chronic obstructive pulmonary disease. HISTORY OF PRESENT ILLNESS: The patient is a 71-year-old gentleman who is admitted with an acute exacerbation of COPD, has got a history of COPD, was recently hospitalized for pneumonia and discharged home on July 19. 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 The patient was discharged with p.o. steroids, diuretics and antibiotics. He says his daughter did not fill his prescription, came in with more swelling and shortness of breath and had multiple falls. He has also complained of chest pain. He is an everyday smoker. On exam, he had crackles in the mid and upper lung of his right side. He was admitted with consult for pulmonary. Prior to this, he was first admitted in June. He lived with his daughter, was moderately independent with a walker for ADLs and mobility secondary to neuropathy and weakness in his lower extremities, currently is mod to max assist for ADLs and mobility due to lower extremity edema, weakness and exertional dyspnea. He says his daughter packed all of his belongings, he does not know where he will go at discharge and this will have to be taken care of by case management. COMORBIDITIES: In this patient include right middle and right upper lobe pneumonia, dyspnea, peripheral edema, peripheral vascular disease, polyneuropathy, DVT, gastroesophageal reflux disease, depression and nicotine dependence. PAST MEDICAL HISTORY: Significant for peripheral vascular disease, history of recurrent DVT, CVA as above, peripheral neuropathy, gastroesophageal reflux disease and depression. PAST SURGICAL HISTORY: Includes tonsillectomy, tympanoplasty and laminectomy. ALLERGIES: NONSTEROIDAL ANTI-INFLAMMATORIES, PENICILLIN, IODINE, KEFLEX AND LOVENOX. CURRENT MEDICATIONS: He is on a tapering dose of prednisone. He is on Xarelto 15 mg b.i.d. as a loading dose for his PE. He is on Nicoderm patch. He is on Levaquin 750 mg daily, furosemide 40 mg b.i.d., Ativan 1 mg q.6 hours p.r.n., [place] 10/325 mg every 4 hours p.r.n., Zofran p.r.n. nausea and vomiting, DuoNeb updrafts p.r.n. shortness of breath, Mucinex 600 mg b.i.d., Pulmicort 0.5 mg b.i.d., Tessalon Perles 100 mg t.i.d. p.r.n. and Brovana 15 mcg b.i.d. HABITS: Does have a history of tobacco use. FAMILY HISTORY: Noncontributory. SOCIAL HISTORY: The patient once again is going to need case management to help with placement when he leaves our rehab facility. HISTORY AND PHYSICAL [id number] MAKENZIE DESAI REVIEW OF SYSTEMS: GENERAL: Does complain of weakness. HEENT: Does complain of cold, cough and congestion. CARDIOVASCULAR: Denies any chest pain. LUNGS: Does complain of shortness of breath. PHYSICAL EXAMINATION: VITAL SIGNS: Stable, afebrile. GENERAL: An elderly gentleman, in no acute distress, alert upon exam. HEENT: Normocephalic and atraumatic. Mucosa is moist. NECK: Supple with no lymphadenopathy. LUNGS: Coarse breath sounds bilaterally. CARDIOVASCULAR: With a regular rate and rhythm. ABDOMEN: Benign. EXTREMITIES: No clubbing, cyanosis, or edema. NEUROLOGIC: Seems intact. LABORATORY DATA: His white count is 10.7, H&H 13 and 41 and platelet count is 175. His sodium is 140, potassium 4.6, BUN and creatinine of 25 and 1.1, and blood sugars noted to be 123. ASSESSMENT: This is a 71-year-old gentleman admitted to the rehab with a working diagnosis of acute exacerbation of chronic obstructive pulmonary disease and probable pneumonia. The patient has potential to make improvement. We instituted the following multidisciplinary therapies including, but not limited to, physical, occupational, respiratory, speech and nutritional services, prosthetics and orthotics. Given his complex condition and risk for more complications, rehabilitation services cannot be provided at a low level of care such as a senior living facility. PLAN: 1. Admit to [facility] rehab for intensive inpatient therapy to include the following disciplines: A. Physical therapy to improve gait, all transfer skills and bed mobility to a modified independent level. B. Occupational therapy to improve activities of daily living to a modified independent level. C. Case management to assist with discharge planning and placement options. D. Nutrition to assist with nutritional needs. E. Rehabilitation nursing to assist in monitoring the patient's underlying medical conditions and to assist with any type of bowel or bladder management. 2. The patient's current medication and medical care will be continued. The patient will be placed on standard fall precautions. 3. The patient's estimated length of stay is approximately 7-10 days. 4. We will get case management to help placement upon discharge from this facility. TRANSINT:[id number] Voice Confirmation ID: [id number] DOCUMENT ID: [id number] ARINA notes whether there has been none or any medical/functional change since admission: - None HISTORY AND PHYSICAL [id number] MAKENZIE DESAI attests patient continues to be appropriate for IRF: - Yes LIVIER MCCLOUD MD at [id number] CC: [id number] DICTATION DATE: 07/26/16 0931 SCIENTIFIC LINGUIST: 07/26/16 1033 ADM IN [place] [id number] [place] [id number]
--- NOTE | 2016-07-27 16:59 | NUR ---
SITTING ON SIDE OF BED. JUST GAVE PT PAIN MEDICATION REQUESTED. CALL LIGHT IN REACH
[2016-07-27 19:55] VITALS: BP 143/83
--- NOTE | 2016-07-27 20:59 | NUR ---
PT REQ AND REC'D PRN PAIN MEDS. ALL OTHER HS MEDS REFUSED. PT DENEIES NEEDS. WCTM. BED LOW. CL INR EACH.
--- NOTE | 2016-07-28 03:43 | NUR ---
PT RESTING, EYES CLOSED. BED LOW. CL IN REACH.
--- NOTE | 2016-07-28 06:11 | NUR ---
PT AM MEDS ADMINISTERED. PT DENIES NEEDS. BED LOW. CL IN REACH.
--- NOTE | 2016-07-28 08:13 | NUR ---
SITTING UP IN W/C IN ROOM EATING BREAKFAST. DENIES NEEDS
[2016-07-28 10:05] VITALS: BP 145/70
--- NOTE | 2016-07-28 15:00 | NUR ---
RESTING QUIETLY IN BED. NO S/S DISTRESS. EYES CLOSED. CALL LIGHT IN REACH
--- NOTE | 2016-07-28 18:48 | NUR ---
PAIN MEDS EFFECTIVE IN CONTROLLING PAIN. UP TO W/C AND TO BATHROOM.
--- NOTE | 2016-07-28 19:45 | NUR ---
PT SIT UP IN BED AND WATCH TV.
--- NOTE | 2016-07-28 21:50 | NUR ---
PT C/O HUNGRY, BRING PUDDING TO PT, AND PT STATE THE PUDDING WILL MAKE HIS STOMACHE FEEL GOOD.
--- NOTE | 2016-07-29 00:27 | NUR ---
PT REST QUIETLY IN BED, EYE CLOSE, BED LOW, CALL LIGHT WITHIN REACH.
[2016-07-29 01:47] VITALS: BP 166/85
--- NOTE | 2016-07-29 02:10 | NUR ---
PT C/O PAIN IN LEG, A SCALE OF 6, PAIN MED GIVEN. MONITOR CLOSELY.
--- NOTE | 2016-07-29 03:56 | NUR ---
PT REST QUIETLY IN BED, EYE CLOSE, BED LOW, CALL LIGHT WITHIN REACH.
--- NOTE | 2016-07-29 06:15 | NUR ---
VERIFIED PATENCY OF PATIENT'S LEFT AXILARY S/L BY 10ML NS FLUSH. PATIENT STATED HE HAD JUST BEEN TO BR AND FELT IV FLUID RUNNING DOWN HIS SIDE. S/L IS PATENT. PATIENT SUGGESTS THAT IT MIGHT RESIDUAL SEROUS FLUID FROM EDEMA WHICH HAS SUBSIDED OVER TIME.
[2016-07-29 06:57] LABS: BASOPHILS 0.1 % (0-2); EOSINOPHILS 0.4 % (0-7); HEMATOCRIT 43.5 % (42.0-54.0); IMMATURE GRANULOCYTES 1.6 % (0-5); MCHC 32.2 g/dL (31.0-37.0); MCV 93.1 fL (80.0-100.0); MEAN PLATELET VOLUME 11.2 fL (7.4-10.4); MONOCYTES 9.8 % (2-11); NEUTROPHILS 74.1 % (40-80); PLATELET COUNT 161 10x3/uL (130-400); RBC 4.67 10x6/uL (4.20-6.10); RDW 16.1 % (11.5-14.5); WBC 11.2 10x3/uL (4.8-10.8)
[2016-07-29 07:11] LABS: CALC OSMOLALITY 288 mosm/kg (275-300); CALCIUM 8.2 mg/dL (8.5-10.1); CARBON DIOXIDE 34.2 mmol/L (21.0-32.0); CHLORIDE - SERUM 106 mmol/L (98-107); CREATININE - SERUM 0.9 mg/dL (0.6-1.3); GLUCOSE 93 mg/dL (74-106); POTASSIUM - SERUM 3.8 mmol/L (3.5-5.1); SODIUM 143 mmol/L (136-145); UREA NITROGEN 25 mg/dL (7-18); eGFR NON AFRICAN AMERICAN 89 mL/min (90-120)
[2016-07-29 08:38] VITALS: BP 147/90
--- NOTE | 2016-07-29 18:11 | NUR ---
Patient sitting on side of bed, complaints of pain 5/10 on the numeric scale. [place] 10 given for lower leg pain, legs propped up. He is resting watching t.v. Bed low, call light in reach. Continue plan of care.
--- NOTE | 2016-07-29 20:00 | NUR ---
PT IN BED WITH HOB UP FOR COMFORT. TALKING ON CELLPHONE. NO 02. NO IV. ALERT & ORIENTED. CONTINENT OF BOWEL AND BLADDER. PAIN LEVEL 0/10. SMOKER. STAND BY ASSIST. VENOUS STASIS ULCER RIGHT LEG. BED IN LOWEST POSITION AND CALL LIGHT WITHIN REACH.
[2016-07-29 22:07] VITALS: BP 165/90
--- NOTE | 2016-07-30 | NUR ---
PT IN BED WITH HOB UP FOR COMFORT. EYES CLOSED. CHEST RISING AND FALLING. BED IN LOWEST POSITION AND CALL LIGHT WITHIN REACH.
--- NOTE | 2016-07-30 04:00 | NUR ---
PT IN BED WITH HOB UP FOR COMFORT. EYES CLOSED. RESPIRATIONS EVEN AND UNLABORED. BED IN LOWEST POSITION AND CALL LIGHT WITHIN REACH.
--- NOTE | 2016-07-30 08:00 | NUR ---
SHIFT ASSMT COMPLETED.DENIES NEEDS.BREAKFAST TRAY GIVEN.ALARM WAIVER ON CHART.DENIES NEEDS.
[2016-07-30 09:25] VITALS: BP 138/76
--- NOTE | 2016-07-30 12:00 | NUR ---
DENIES NEEDS.IN ROOM EATING LUNCH.
--- NOTE | 2016-07-30 15:59 | NUR ---
PATIENT ADMITTED TO REHAB FROM ACUTE FLOOR. PATIENT STATES THAT HE SEES DR. CHINO IN [place]. HIS PLANS ARE TO BE DISCHARGED TO A [place] HOME WHEN HE DISCHARGES FROM REHAB. PHARMACY OF CHOICE IS [facility]. HE IS OF [place]. WILL CONTINUE TO FOLLOW WITH PATIENT
--- NOTE | 2016-07-30 16:00 | NUR ---
RESTING QUIETLY.CL IN REACH.
--- NOTE | 2016-07-30 19:50 | NUR ---
PERFORM HEAD TO TOE ASSESSMENT FOR PT.
[2016-07-30 21:02] VITALS: BP 170/91
--- NOTE | 2016-07-30 21:50 | NUR ---
PT SIT IN WHEELCHAIR AND WATCH TV.
--- NOTE | 2016-07-31 00:35 | NUR ---
PT SIT IN WHEELCHAIR AND WATCH TV.
--- NOTE | 2016-07-31 00:47 | NUR ---
PT REST QUIETLY IN BED, EYE CLOSE, BED LOW,CALL LIGHT WITHIN REACH.
--- NOTE | 2016-07-31 03:30 | NUR ---
PT TOOK A SHOWER THIS AM, WILL CONSULT WOUND CARE REGARDING VENOUS STASIS ULCER VIA AM SHIFT.
--- NOTE | 2016-07-31 06:16 | NUR ---
PT NEED WOUND CARE CONDULT.
[2016-07-31 06:50] LABS: BASOPHILS 0.1 % (0-2); EOSINOPHILS 0.8 % (0-7); HEMATOCRIT 42.1 % (42.0-54.0); HEMOGLOBIN 13.7 g/dL (13.5-17.5); IMMATURE GRANULOCYTES 1.1 % (0-5); LYMPHOCYTES 18.6 % (15-50); MCH 30.5 pg (26.0-34.0); MCHC 32.5 g/dL (31.0-37.0); MCV 93.8 fL (80.0-100.0); MEAN PLATELET VOLUME 10.3 fL (7.4-10.4); MONOCYTES 8.3 % (2-11); NEUTROPHILS 71.1 % (40-80); PLATELET COUNT 143 10x3/uL (130-400); RBC 4.49 10x6/uL (4.20-6.10); RDW 16.2 % (11.5-14.5); WBC 9.5 10x3/uL (4.8-10.8)
[2016-07-31 07:28] LABS: CALC OSMOLALITY 286 mosm/kg (275-300); CALCIUM 8.3 mg/dL (8.5-10.1); CARBON DIOXIDE 30.2 mmol/L (21.0-32.0); CHLORIDE - SERUM 106 mmol/L (98-107); CREATININE - SERUM 0.9 mg/dL (0.6-1.3); GLUCOSE 72 mg/dL (74-106); POTASSIUM - SERUM 4.1 mmol/L (3.5-5.1); SODIUM 142 mmol/L (136-145); UREA NITROGEN 27 mg/dL (7-18); eGFR NON AFRICAN AMERICAN 89 mL/min (90-120)
--- NOTE | 2016-07-31 08:00 | NUR ---
BREAKFAST TRAY GIVEN.LEG ULCERS OPEN AREA AND LIGHTLY DRAINING.4X4'S IN PLACE AND WRAPPED WITH BELINDA.WND CARE CONSULT TO F/U TODAY.
[2016-07-31 09:06] VITALS: BP 157/89
--- NOTE | 2016-07-31 12:00 | NUR ---
INDEPENDENT IN ROOM.DENIES NEEDS.
--- NOTE | 2016-07-31 13:30 | NUR ---
Nutrition Follow Up: Chart reviewed. Pt is eating 94% meal avg on a regular diet. No new wt to assess. +BM 07/30/16. Labs and meds reviewed. Pt with excellent po intake at this time. Rec continue current diet. RD following.
--- NOTE | 2016-07-31 17:03 | NUR ---
CARE TEAM MEETING: PLANS ARE FOR PATIENT TO RETURN HOME WITH HOME HEALTH . TENATIVE DISCHARGE DATE IS 08/06/16. WILL CONTINUE TO FOLLOW WITH PATIENT UNTIL DISCHARGED
--- NOTE | 2016-07-31 17:25 | NUR ---
WOUND CARE CONSULT: PT HAS ULCERS AND BLISTERS ON BILATERAL LOWER EXTREMITIES. THEY ARE WEEPING. FEET ARE PURPLISH IN COLOR AND REBEKA LE ARE RED/PURPLE AND EDEMATOUS. PT HAS HX OF PVD. RECOMMEND COVERING OPEN AREAS WITH MAXORB AG AND A NONADHERENT GAUZE AND SECURING WITH KERLIX. WRAP FROM BASE OF TOES TO JUST BELOW KNEES. THIS SHOULD BE DONE DAILY BUT ALSO IF KERLIX BECOMES SATURATED IT WILL NEED TO BE CHANGED. WOUND CARE WILL MONITOR.
--- NOTE | 2016-07-31 19:55 | NUR ---
PT RECEIVED AT NURSE'S STATION AT SHIFT CHANGE REQUESTING PRN PAIN MEDICATION FOR PAIN 6/10 TO BILATERAL LOWER EXTREMETIES. NO OTHER NEEDS OR CONCERNS MADE KNOWN. CALL LIGHT IN REACH. WILL CONTINUE TO DESERVES.
[2016-07-31 22:58] VITALS: BP 141/84
--- NOTE | 2016-07-31 23:01 | NUR ---
PT IN BED WITH EYES CLOSED AND CHEST RISING. NO SIGN/SYMPTOMS OF DISTRESS NOTED. CALL LIGHT IN REACH. WILL CONTINUE TO OBSERVE.
--- NOTE | 2016-08-01 01:42 | NUR ---
PT IN BED WITH EYES CLOSED AND CHEST RISING. NO CONCERNS NOTED AT THIS TIME. CALL LIGHT IN REACH. WILL CONTINUE TO OBSERVE.
--- NOTE | 2016-08-01 06:43 | NUR ---
PT UP IN WHEELCHAIR. RECIEVED AM MEDICATIONS RECEIVED PER MAR WITHOUT DIFFICULTY. NO CONCERNS NOTED AT THIS TIME.
--- NOTE | 2016-08-01 07:40 | NUR ---
AROUSE EASILY.ASSESSMENT COMPLETED.RATES PAIN IN LEGS A 5.LOWER EXTREMITIES SWOLLEN AND WEEPING.1500ML/24HR.FLD RESTRICTION.HAS SIGNED BED ALARM WAIVER AND PROPELLS SELF OUTSIDE TO SMOKE .
[2016-08-01 09:43] VITALS: BP 138/81
--- NOTE | 2016-08-01 16:00 | NUR ---
NEW ORDERS PER DR MCCLOUD TO DC NORCO AND REPLACE WITH PERCOCET 10/325MG 1 PO EVERY 4HR. PRN PAIN DUE TO PATIENT C/O PAIN NOT CONTROLLED.
--- NOTE | 2016-08-01 19:25 | NUR ---
PT RECEIVED UP IN WHEELCHAIR AT BEDSIDE. COMPLAINS OF PAIN TO BILATERAL LOWER EXTREMETIES. PRN PAIN MEDICATION UNAVAILABLE PER MAR WITH TIME AVAILABLE STATED AND PT IN AGREEMENT. NO OTHER NEEDS OR CONCERNS MADE KNOWN. CALL LIGHT IN REACH. WILL CONTINUE TO OBSERVE.
[2016-08-01 22:11] VITALS: BP 171/87
--- NOTE | 2016-08-01 23:35 | NUR ---
PT UP IN WHEELCHAIR. RECEIVED HS MEDICATIONS PER MAR. NO NEEDS OR CONCERNS MADE KNOWN. WILL CONTINUE TO OBSERVE.
--- NOTE | 2016-08-02 02:43 | NUR ---
PT IN BED WITH EYES CLOSED AND CHEST RISING. NO SIGN/SYMPTOMS OF DISTRESS NOTED. CALL LIGHT IN REACH. WILL CONTINUE TO OBSERVE.
[2016-08-02 09:02] VITALS: BP 140/82
[2016-08-02 19:00] VITALS: BP 129/82
--- NOTE | 2016-08-02 19:45 | NUR ---
PT SIT IN WHEELCHAIR WATCHING TV.
--- NOTE | 2016-08-02 20:30 | NUR ---
UP IN W/C IN HALLWAY.
--- NOTE | 2016-08-02 21:56 | NUR ---
PT C/O PAIN IN LEG, A SCALE OF 8, PAIN MED GIVEN. MONITOR CLOSELY.
--- NOTE | 2016-08-02 22:30 | NUR ---
PT STATE HE HAS NO PAIN.
--- NOTE | 2016-08-02 23:41 | NUR ---
PT REST QUIETLY IN BED, BED IN LOW POSITION, CALL LIGHT WITHIN REACH.
--- NOTE | 2016-08-03 03:00 | NUR ---
PT REST QUIETLY IN BED, CALL LIGHT WITHIN REACH.
--- NOTE | 2016-08-03 03:30 | NUR ---
PT SIT AND REST IN WHEELCHAIR FOR A LONG PERIOD OF TIME, SUGGEST PT GET IN BED AND REST, PT REFUSED.
[2016-08-03 08:00] VITALS: BP 148/62
--- NOTE | 2016-08-03 08:00 | NUR ---
SHIFT ASSMT COMPLETED.INDEPENDENT IN ROOM.CL IN REACH.
--- NOTE | 2016-08-03 16:00 | NUR ---
UP IN BED AFTER RE-CHANGING LEFT LEG DRSG FROM SATURATED WITH YELLOW TINT DRAINAGE.ENCOURAGED TO KEEP LEGS ELAVATED TO REDUCE SWELLING.
--- NOTE | 2016-08-03 19:40 | NUR ---
PT UP IN WHEELCHAIR IN HALLWAY.
--- NOTE | 2016-08-03 21:20 | NUR ---
CLEANING PT LEFT LOWER LEGS WITH WOUND CLEANSER AND CHANGE DRESSING FROM SATURATED, YELLOW TINT DRAINAGE. AND ENCOURAGED PT TO KEEP LEGS ELAVATED TO REDUCE SWELLING.
[2016-08-04 00:45] VITALS: BP 135/78
--- NOTE | 2016-08-04 00:45 | NUR ---
RESTING QUIETLY, EYES CLOSED.
--- NOTE | 2016-08-04 01:38 | NUR ---
C/O PAIN LEVEL OF 7/10, ACHING AND BURNING IN BILAT LEGS. GAVE PATIENT PERCOCET 10/325 X1 TAB PO.
--- NOTE | 2016-08-04 04:47 | NUR ---
CHANGING LEFT LEG DRSG FROM SATURATED WITH YELLOW TINT DRAINAGE.
[2016-08-04 08:00] VITALS: BP 102/73
--- NOTE | 2016-08-04 20:05 | NUR ---
PT. HAS BEEN UP IN W/C AND OUT OF THE UNIT UNTIL NOW. PT. USED BR BEFORE ASSESSMENT COMPLETED. NO VOICED NEEDS AT THIS TIME AND HE HAS HIS CALL LIGHT WITHIN REACH. PT. STATES HE WILL GET INTO BED IN A LITTLE WHILE.
--- NOTE | 2016-08-04 23:07 | NUR ---
PT. IN BED WITH HOB UP FOR COMFORT WITH EYES CLOSED AND RESP. DEEP AND EVEN. CALL LIGHT WITHIN REACH.
[2016-08-04 23:20] VITALS: BP 163/76
--- NOTE | 2016-08-05 02:15 | NUR ---
DRESSING TO LLE WET. OLD DRESSING REMOVED. AREA WHERE BLISTER HAD BEEN THERE IS NO SKIN ON THE TOP OF THAT AREA. AREA CLEANSED WITH WOUND CLEANSER, PATTED DRY, COVERED WITH MAXSORB AG-CUT TO FIT OPENING, COVERED WITH TELFA, WRAPPED WITH BELINDA AND SECURED WITH TAPE. PT. TOLERATED PROCEDURE WITHOUT ANY C/O. CALL LIGHT REMAINS WITHIN REACH.
--- NOTE | 2016-08-05 03:11 | NUR ---
PT. SITTING UP IN W/C WITH TV ON WITH EYES CLOSED AND RESP. EVEN. CALL LIGHT WITHIN REACH.
[2016-08-05 06:41] LABS: BASOPHILS 0.2 % (0-2); EOSINOPHILS 1.9 % (0-7); HEMATOCRIT 40.5 % (42.0-54.0); HEMOGLOBIN 12.6 g/dL (13.5-17.5); LYMPHOCYTES 26.4 % (15-50); MCH 29.8 pg (26.0-34.0); MCHC 31.1 g/dL (31.0-37.0); MCV 95.7 fL (80.0-100.0); MEAN PLATELET VOLUME 10.7 fL (7.4-10.4); MONOCYTES 9.3 % (2-11); NEUTROPHILS 60.2 % (40-80); PLATELET COUNT 160 10x3/uL (130-400); RBC 4.23 10x6/uL (4.20-6.10); RDW 17.2 % (11.5-14.5); WBC 8.5 10x3/uL (4.8-10.8)
[2016-08-05 06:55] LABS: CALC OSMOLALITY 294 mosm/kg (275-300); CALCIUM 8.3 mg/dL (8.5-10.1); CARBON DIOXIDE 32.7 mmol/L (21.0-32.0); CHLORIDE - SERUM 108 mmol/L (98-107); CREATININE - SERUM 0.8 mg/dL (0.6-1.3); GLUCOSE 87 mg/dL (74-106); POTASSIUM - SERUM 3.8 mmol/L (3.5-5.1); SODIUM 144 mmol/L (136-145); UREA NITROGEN 37 mg/dL (7-18); eGFR NON AFRICAN AMERICAN > 90 mL/min (90-120)
--- NOTE | 2016-08-05 07:40 | NUR ---
RESTING QUIETLY IN BED CALL LIGHT IN REACH
[2016-08-05] MEDS ORDERED: PERCOCET 10/3251 TA1 PO (08:56)
[2016-08-05 09:11] VITALS: BP 158/89
--- NOTE | 2016-08-05 15:29 | NUR ---
PT NOT IN ROOM, WENT OUTSIDE FOR SMOKE
--- NOTE | 2016-08-05 17:39 | NUR ---
PT SITTING UP IN W/C EYES CLOSED
[2016-08-05 19:04] VITALS: BP 150/71
--- NOTE | 2016-08-05 19:30 | NUR ---
PT. SITTING UP IN W/C AND WOULD LIKE THE RECLINER MOVED TO BESIDE HIS BED SO THAT IF/WHEN HE DECIDES HE CAN SLEEP IN IT, THAT IS WHAT HE IS USED TO SLEEPING IN AT HOME. ASSESSMENT COMPLETED. CALL LIGHT WITHIN REACH AND OTHER VOICED NEEDS AT THIS TIME.
--- NOTE | 2016-08-05 23:03 | NUR ---
PT. IN BED WITH HOB AND FOB ELEVATED FOR COMFORT AND TO HELP DECREASE LE EDEMA. EYES CLOSED AND RESP. DEEP AND EVEN. CALL LIGHT WITHIN REACH.
--- NOTE | 2016-08-06 03:02 | NUR ---
PT. IN BED WITH HOB/FOB ELEVATED. EYES CLOSED AND RESP. DEEP AND EVEN. CALL LIGHT WITHIN REACH.
--- NOTE | 2016-08-06 04:05 | NUR ---
LLE DRESSING WET. OLD DRESSING REMOVED. SKIN CLEANSED AND DRIED. APPLIED NEW MAXSORB AG, TELFA, WRAPPED WITH BELINDA AND SECURED WITH TAPE. PT. TOLERATED PROCEDURE WITHOUT ANY COMPLAINTS WHILE HE SAT IN THE RECLINER. CALL LIGHT WITHIN REACH.
--- NOTE | 2016-08-06 06:28 | NUR ---
PT. HAD JUST BEEN BACK TO THE THERAPY DEPT. WHERE HE GOT HIMSELF A CUP OF COFFEE. WHEN I ENTERED ROOM PT. SITTING UP IN HIS W/C AND HAD SPILLED SOME OF HIS COFFEE ON HIMSELF. PT. DENIES ANY INJURY TO HIMSELF-JUST MORE MAD AT HIMSELF THAN ANYTHING. MORNING MEDS TAKEN WITHOUT PROBLEMS. PT. DENIES ANY NEEDS AND HIS CALL LIGHT IS WITHIN REACH.
--- NOTE | 2016-08-06 07:23 | NUR ---
SITTING UP IN W/C WATCHING TV. DENIES PAIN OR SOB. CALL LIGHT IN REACH
[2016-08-06 08:00] VITALS: BP 127/67
--- NOTE | 2016-08-06 12:12 | NUR ---
ATE LUNCH SITTING IN W/C IN ROOM. SPENDS LITTLE TIME IN BED WITH BLE ELEVATED. HE STILL HAS 4+ WEEPING EDEMA TO HIS LLE. THERE IS A LARGE RUPTURED BLISTER TO INSIDE OF LLE [place] AREA. IT IS DRESSED ORDERED WITH MAXORB AG, 4X4, KIRLEX. THERE IS ENOUGH DRAINAGE COMING FROM REPUTRED BLISTER AREA TO SOAK 8 4X4 AND WHOLE ROLL OF KIRLEX IN 2 HRS. TIPS OF HIS TOES ARE DUSKY IN COLOR. ENCOURAGED HIM TO KEEP BLE ELEVATED.
--- NOTE | 2016-08-06 14:49 | NUR ---
RESTING IN BED. CALL LIGHT IN REACH
--- NOTE | 2016-08-06 15:23 | NUR ---
UPSET ABOUT HIS LEGS "GETTING WORSE". STATES HIS EDEMA IS NOT GOING DOWN AND THE DRAINAGE IS INCREASING. EXPLAINED TO PT THAT HE CONSTANTLY KEEPS HIS LEGS DANGLING FROM HIS W/C AND DOES NOT ELEVATE HIS BLE LONG ENOUGH OR OFTEN ENOUGH TO LET SWELLING GO DOWN. HE DENIES ANYTHING WILL HELP HIS EDEMA AND ROLLS AWAY IN W/C TO GO OUTSIDE AND SMOKE.
--- NOTE | 2016-08-06 19:25 | NUR ---
PT UP IN WC AT THIS TIME, ASSESSMENT PER FLOW SHEET, PT REPORTS FLATUS, BM TODAY AND USING URINAL NEEDED, PT REPORTS PAIN 10/24, INFORMED PT THAT I WILL CHECK ON PAIN MED AND ADM WHEN DUE, PT VERBALIZES UNDERSTANDING, DENIES NEEDS AT THIS TIME
--- NOTE | 2016-08-06 20:45 | NUR ---
PT JUST COMING OUT OF BR, REPORTS VOIDING WITH NO DIFFICULTY, PT BACK TO , ADM 2100 MEDS PO PER MD ORDERS, SEE EMAR, INFORMED PT THAT PAIN MED WAS DUE AROUND 9:20, PT VERBALIZES UNDERSTANDING, STATES "WHEN YOU COME BACK TO GIVE ME MY PAIN PILL, YOU CAN JUST CHANGE THIS DRESSING THEN", PT REQUESTED AND SERVED CUP OF ICE, PT DENIES FURTHER NEEDS
--- NOTE | 2016-08-06 21:13 | NUR ---
PT READY FOR BED, ADM PAIN MED PO PER MD ORDERS, SEE EMAR, DRESSING CHANGE TO LEFT LOWER LEG WITH 4X4'S AND KIRLEX, NEW SCRUBS PROVIDED FOR PT TO CHANGE INTO, PT STATE'S "I WILL CHANGE INTO THEM MYSELF", PT DENIES FURTHER NEEDS
[2016-08-06 21:39] VITALS: BP 129/66
--- NOTE | 2016-08-06 22:05 | NUR ---
PT RESTING WITH EYES CLOSED, RESP QUIET, NO DISTRESS NOTED, LEFT UNDISTURBED AT THIS TIME
--- NOTE | 2016-08-07 00:02 | NUR ---
PT AWAKE, SITTING UP IN WC, PT DENIES NEEDS OR PAIN AT THIS TIME
--- NOTE | 2016-08-07 02:26 | NUR ---
PT AWAKE, SITTING IN WC, DENIES NEEDS OR PAIN, STATES "I'M ALRIGHT"
--- NOTE | 2016-08-07 04:11 | NUR ---
PT SITTING UP IN RECLINER, DENIES NEEDS OR PAIN AT THIS TIME
--- NOTE | 2016-08-07 05:17 | NUR ---
pt hostile r/t not getting percocet medication as he states it is prn and he should be able to get when he wants. pt wheeled out the door in an aggressive manner. not able to reason with patient and explain risks of excessive acetaminophen.
--- NOTE | 2016-08-07 05:35 | NUR ---
PT SITTING AT TRAFFIC ENGINEERING DIRECTOR WAITING ON PAIN MED, ADM PAIN MED AND 0600 MED PO PER MD ORDERS, SEE EMAR, PT THEN LEAVES UNIT VIA WC
--- NOTE | 2016-08-07 06:25 | NUR ---
PT BACK TO ROOM, DRESSING CHANGED ON LEG, PT DENIES FURTHER NEEDS
--- NOTE | 2016-08-07 07:00 | NUR ---
SHIFT REPORT TO DAY SHIFT
--- NOTE | 2016-08-07 08:00 | NUR ---
SHIFT ASSMT COMPLETED.BILAT DRSG TO LOWER LEGS DRY AND INTACT.CL IN REACH.HOME TODAY.
[2016-08-07 08:18] VITALS: BP 143/88
--- NOTE | 2016-08-07 09:30 | NUR ---
Nutrition Follow Up: Pt is eating 100% meal avg on a regular diet. +BM 08/06/16. Labs reviewed. Meds noted including Lasix. Rec continue current diet. RD following.
--- NOTE | 2016-08-07 12:00 | NUR ---
UP IN .WAITING ON DISCHARGE.
--- NOTE | 2016-08-07 14:37 | NUR ---
PATIENT DISCHARGED HOME TODAY WITH [facility] TO FOLLOW.[facility] WILL DELIVER A ROLLING WALKER. PATIENT HAS A PENDING APPOINTMENT WITH [facility]. ORDERS HAVE BEEN FAXED WITH CONFORMATION RECIEVED. PATIENT CHOICE FORM FOR HOME HEALTH AND [facility] FORM SIGNED, EXPLAINED AND FILED IN CHART. PATIENT DISCHARGED VIA CAB, PER PATIENT CHOICE
--- NOTE | 2016-08-07 14:45 | NUR ---
REVIEWED MEDICATIONS AND RX'S GIVEN.STATES UNDERSTANDING OF [facility] APPT[facility] WILL DELIVER WALKER TO [facility].DC'D IN STABLE CONDITION PLACED IN CAB.
== END 2016-08-07 14:40 | disposition home health service (06) | DRG 190 ==
LOC: D.REHAB 17:26
PROVIDERS: ADMIT Emergency Medicine
DX: J44.0 Chronic obstructive pulmonary disease with (acute) lower respiratory infection (principal); J18.9 Pneumonia, unspecified organism; I82.409 Acute embolism and thrombosis of unspecified deep veins of unspecified lower extremity; J44.1 Chronic obstructive pulmonary disease with (acute) exacerbation; R06.00 Dyspnea, unspecified; R60.9 Edema, unspecified; I73.9 Peripheral vascular disease, unspecified; G62.9 Polyneuropathy, unspecified; K21.9 Gastro-esophageal reflux disease without esophagitis; F32.9 Major depressive disorder, single episode, unspecified; F17.200 Nicotine dependence, unspecified, uncomplicated

== ENCOUNTER 2016-09-28 10:10 | Inpatient (IN) | payer MEDICARE ==
[~2016-09-28] VITALS: Ht 182.9 cm; Wt 136.1 kg
[~2016-09-28 10:10] MED LIST changes: +PERCOCET 10/3251 TA1 PO
[2016-09-28 10:52] LABS: APPEARANCE CLEAR (CLEAR); COLOR YELLOW (YELLOW)
[2016-09-28 10:53] LABS: BACTERIA NONE SEEN /hpf (NONE SEEN); BILIRUBIN NEGATIVE (NEGATIVE); EPITHELIAL CELLS RARE /hpf (0-5); GLUCOSE NEGATIVE (NEGATIVE); KETONE NEGATIVE (NEGATIVE); LEUKOCYTE ESTERASE TRACE (NEGATIVE); NITRITE NEGATIVE (NEGATIVE); PROTEIN 1+ mg/dL (NEGATIVE); RED CELLS - URINE 0-5 /hpf (0-5); SPECIFIC GRAVITY 1.015 (1.005-1.020); UROBILINOGEN NORMAL (NORMAL); WHITE CELLS - URINE 0-5 /hpf (0-5)
[2016-09-28 12:35] LABS: BASOPHILS 0.2 % (0-2); EOSINOPHILS 1.5 % (0-7); HEMATOCRIT 29.9 % (42.0-54.0); HEMOGLOBIN 8.8 g/dL (13.5-17.5); IMMATURE GRANULOCYTES 0.5 % (0-5); LYMPHOCYTES 7.1 % (15-50); MCH 25.7 pg (26.0-34.0); MCHC 29.4 g/dL (31.0-37.0); MCV 87.2 fL (80.0-100.0); MONOCYTES 8.3 % (2-11); NEUTROPHILS 82.4 % (40-80); RBC 3.43 10x6/uL (4.20-6.10); RDW 17.1 % (11.5-14.5)
[2016-09-28 12:36] LABS: PLATELET COUNT 433 10x3/uL (130-400)
[2016-09-28 12:58] LABS: ALBUMIN 1.2 g/dL (3.4-5.0); ALKALINE PHOSPHATASE 139 U/L (46-116); ALT (SGPT) 19 U/L (10-68); BILIRUBIN - TOTAL 0.24 mg/dL (0.2-1.3); CALC OSMOLALITY 292 mosm/kg (275-300); CALCIUM 7.8 mg/dL (8.5-10.1); CARBON DIOXIDE 25.5 mmol/L (21.0-32.0); CHLORIDE - SERUM 110 mmol/L (98-107); CREATININE - SERUM 1.4 mg/dL (0.6-1.3); GLUCOSE 104 mg/dL (74-106); POTASSIUM - SERUM 4.3 mmol/L (3.5-5.1); PROTEIN - SERUM 5.8 g/dL (6.4-8.2); SODIUM 145 mmol/L (136-145); UREA NITROGEN 24 mg/dL (7-18); eGFR NON AFRICAN AMERICAN 53 mL/min (90-120)
[2016-09-28 13:06] LABS: CKMB 1.1 U/L (0.0-3.6); CREATINE KINASE 64 UL (21-232)
[2016-09-28 13:08] LABS: TROPONIN-I < 0.017 ng/mL (0.000-0.060)
--- NOTE | 2016-09-28 17:27 | NUR ---
PT SPO2 WAS 85% ON ROOM AIR (R) HAND PLACED PT ON 3LPM NC SPO2 WAS 98% ON (L) HAND
[2016-09-28 19:29] VITALS: BMI 40.8
[2016-09-28 20:00] VITALS: BP 138/86
[2016-09-29] VITALS: BP 147/65
[2016-09-29 04:00] VITALS: BP 148/77
[2016-09-29 04:40] LABS: BASOPHILS 0.4 % (0-2); EOSINOPHILS 2.9 % (0-7); HEMATOCRIT 27.3 % (42.0-54.0); HEMOGLOBIN 8.1 g/dL (13.5-17.5); IMMATURE GRANULOCYTES 0.6 % (0-5); LYMPHOCYTES 9.5 % (15-50); MCH 25.7 pg (26.0-34.0); MCHC 29.7 g/dL (31.0-37.0); MCV 86.7 fL (80.0-100.0); MEAN PLATELET VOLUME 9.7 fL (7.4-10.4); NEUTROPHILS 75.6 % (40-80); PLATELET COUNT 463 10x3/uL (130-400); RBC 3.15 10x6/uL (4.20-6.10); RDW 17.4 % (11.5-14.5); WBC 10.9 10x3/uL (4.8-10.8)
[2016-09-29 05:01] LABS: % SATURATION 9 % (15-55); IRON 17 ug/dl (35-150); TOTAL IRON BIND CAPACITY 171 ug/dl (260-445); UNSAT IRON BIND CAPACITY 154 ug/dl (150-375)
[2016-09-29 05:18] LABS: ALBUMIN 1.1 g/dL (3.4-5.0); ANION GAP 10.7 mmol/L (8-16); BILIRUBIN - TOTAL 0.2 mg/dL (0.2-1.3); CALCIUM 7.2 mg/dL (8.5-10.1); CARBON DIOXIDE 27.1 mmol/L (21.0-32.0); CREATININE - SERUM 1.4 mg/dL (0.6-1.3); POTASSIUM - SERUM 4.8 mmol/L (3.5-5.1); PROTEIN - SERUM 4.6 g/dL (6.4-8.2)
--- NOTE | 2016-09-29 07:00 | NUR ---
REPORT RECIEVED ASSUMED CARE. PATIENT IN BED WITH IV INTACT. NO COMPLAINTS. CALL LIGHT WITHIN REACH.
[2016-09-29 08:24] VITALS: BP 136/70
[2016-09-29 12:57] VITALS: BP 140/73
[2016-09-29 15:58] VITALS: BP 125/64
--- NOTE | 2016-09-29 18:55 | NUR ---
PATIENT IN BED WITH IV INTACT. NO COMPLAINTS AT THIS TIME. CALL LIGHT WITHIN REACH.
--- NOTE | 2016-09-29 19:07 | NUR ---
Received patient in bed. security monitor on, rhythm is SR, HR in the 90s. Extremely edematous, hands, arms, feet and legs all swollen. States he has a hard time moving. PIV in left upper chest infusing NS @10ml/hr. Manjarrez catheter in place draining clear william colored urine. On room air no respiratory difficulties at this time, respirations easy and regular, lungs sound clear but diminished.
[2016-09-29 20:00] VITALS: BP 142/63
--- NOTE | 2016-09-29 20:08 | NUR ---
Patient has called Hogshead Stripper complaining of his care. 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 Given Percocet tab at this time for complaints of mainly back pain but also generalized pain in his extremities due to extreme edema. Rates pain as 9/10.
--- NOTE | 2016-09-29 20:35 | NUR ---
Patient called Ben Day Artist from his room phone to report that his Dilaudid PRN was a few minutes late. Angry, irritable, yelling out. Nurse attending to another patient's needs and will give Dilaudid CRISTIN.
--- NOTE | 2016-09-29 20:43 | NUR ---
Given Dilaudid for pain 1mg per IV, rates pain as 10/10. Will monitor.
--- NOTE | 2016-09-29 21:05 | NUR ---
Pulled off his physician office secretary, refusing to wear same. Claims he has no heart problems only needs his pain managed and get rid of all this extra fluid. Tech and nurse tried to explain to patient the importance of monitoring his heart rhythm but he still refuses. engineer technician notified.
--- NOTE | 2016-09-29 22:05 | NUR ---
Patient pulled out PIV, demanding staff stop whatever they are doing and tend to his needs over needs of other patients. Demanding that PIV be restarted now. Dept. Director Customer on unit and will speak to patient and restart a new PIV.
[2016-09-30] VITALS (7 sets, daily range): BP systolic 108–180; BP diastolic 55–84; Ht 182.9 cm; Wt 136.1 kg
[2016-09-30 04:49] LABS: BASOPHILS 0.2 % (0-2); EOSINOPHILS 3.7 % (0-7); HEMATOCRIT 25.1 % (42.0-54.0); HEMOGLOBIN 7.8 g/dL (13.5-17.5); IMMATURE GRANULOCYTES 0.5 % (0-5); LYMPHOCYTES 11.7 % (15-50); MCH 26.6 pg (26.0-34.0); MCHC 31.1 g/dL (31.0-37.0); MCV 85.7 fL (80.0-100.0); MEAN PLATELET VOLUME 9.7 fL (7.4-10.4); MONOCYTES 10.1 % (2-11); NEUTROPHILS 73.8 % (40-80); PLATELET COUNT 446 10x3/uL (130-400); RBC 2.93 10x6/uL (4.20-6.10); RDW 17.2 % (11.5-14.5); WBC 8.7 10x3/uL (4.8-10.8)
[2016-09-30 05:09] LABS: ANION GAP 11.6 mmol/L (8-16); CREATININE - SERUM 1.5 mg/dL (0.6-1.3)
[2016-09-30 05:17] LABS: POTASSIUM - SERUM 3.6 mmol/L (3.5-5.1)
--- NOTE | 2016-09-30 07:00 | NUR ---
REPORT RECIEVED ASSUMED CARE. PATIENT IN BED WITH IV INTACT. EYES CLOSED RESTING AT THIS TIME. CALL LIGHT WITHIN REACH.
--- NOTE | 2016-09-30 07:52 | NUR ---
PATIENT RECIEVED DILAUDID IVP AT THIS TIME. UPSET AND MAD BECAUSE HE SAYS HE HASNT BEEN GETTING HIS PAIN MEDS EVERY TWO HOURS ORDERED. EXPLAINED TO PATIENT THAT ACCORDING TO HIS EMAR HE HAS HAD DILAUDID EVERY TWO HOURS EXCEPT FOR THIS PUSH I AM GIVING HIM. HE SAID YEAH I SHOULD HAVE ALREADY GOTTEN IT. EXPLAINED TO PATIENT THAT HE JUST TOOK A PERCOCET AT 600, THAT IS WHY HE DIDNT RECIEVE DIALAUDID AT 0700. PATIENT STILL MAD. STATED HE WAS CALLING ADMINISTRATION. EXPLAINED TO PATIENT AGAIN TAHT THERE IS NO MORE PAIN MEDS HE CAN TAKE AT THIS TIME. CALL LIGHT WITHIN REACH.
--- NOTE | 2016-09-30 11:03 | NUR ---
REHAB PRESCREENING Rehab referral received and chart reviewed. PT and OT evaluations have been ordered yet not completed as of yet. Rehab will continue to follow this patient. Thank you for this referral! Eleanor Ceron, BACK TENDER PAPER MACHINE Rehab Risk Officer
--- NOTE | 2016-09-30 14:25 | NUR ---
PATIENT MAD BECAUSE HE GOT PERCOCET AND DOESNT WANT TO WAIT FOR AN HOUR TO RECIEVE DILAUDID IVP. EXPLAINED TO PATIENT THAT HE IS NOT ALLOWED TO HAVE THE MEDS TO CLOSE TOGETHER BECAUSE BOTH ARE NARCOTICS AND COULD DEPRESS HIS REPIRATORY SYSTEM. STATED HE WANTED TO SEE THE GROUND HAND. TOLD MELINDA MARI. SENIOR LINUX UNIX ADMINISTRATOR ORDERED. CALL LIGHT WITHIN REACH.
--- NOTE | 2016-09-30 15:38 | NUR ---
LEAD APPLICATIONS DEVELOPER REQUESTED ME RECORDS THIS AM. FAXED REQUEST AT 1100. RECEIVED CONFIRMATION. FAXED X2. TC TO [facility] AND TRANSFERED TO HEALTH INFORMATION. SHAMPOOER TO TO [phone] REGARDING REQUESTED INFORMATION. TC TO [facility]. SPOKE WITH MS SILVIO HITCHCOCK. SHE RECEIVED A REFERRAL FOR HOME BASED CARE 09/26. REFERRAL WAS SENT TO [facility]. CONTACT PHONE NUMBER [phone]. SHE REPORTS THEY HAD ATTEMPTED TO CONTACT THE PATIENT AT PHONE NUMBER [phone]. [facility] HAS PT'S NUMBER [phone]. PATIENT PRIMARY CARE IS WITH [facility] IN [place]. ANY QUESTIONS MAYBE REFERRED TO THAT PRIMARY CARE TEAM THRU [phone] SHELLFISH MEAT SEPARATOR OPERATOR. PATIENT IS TO CALL [facility] [employer] AT [phone] AT DISCHARGE. REHAB HAD BEEN SUGGESTED TO PATIENT PRIOR TO HIS DISCHARGE FROM THE ME BUT HE DECLINED PER MS HITCHCOCK.
--- NOTE | 2016-09-30 18:40 | NUR ---
DR. SCHULER IN ROOM TRYING TO FIND VEIN FOR CENTRAL LINE.
--- NOTE | 2016-09-30 19:00 | NUR ---
PATIENT UNABLE TO GET CENTRAL LINE AT THIS TIME. DR. SCHULER SAID HE WOULD FIND A BETTER US AND COME BACK TOMORROW TO TRY AGAIN. PATIENT IN BED WITH IV INTACT. CALL LIGHT WITHIN REACH.
[2016-09-30 19:37] LABS: INR 1.32 (0.85-1.17); PROTIME 16.3 SECONDS (11.6-15.0)
--- NOTE | 2016-09-30 20:02 | NUR ---
TRIED TO PAGE CECILIA THEODORE FOR ORDERS ABOUT GIVING BLOOD AND STARTING HEPARIN DRIP WITH ONLY ONE IV. NO CALL BACK AT THIS TIME.
--- NOTE | 2016-09-30 21:00 | NUR ---
SPOKE WITH CECILIA THEODORE ABOUT PATIENT GETTING BLOOD AND STARTING HEPARIN DRIP AND UNABLE TO START A NEW LINE. SHE STATED TO HOLD THE BLOOD AND HEPARIN UNTIL THE MORNING UNTIL DR. SCHULER CAN GET THE LINE IN. ALSO TO LET DR. SCHULER KNOW THAT THE PATIENT NEEDS THE LINE EARLY IN THE AM POSSIBLE. VERBALIZED UNDERSTANDING. EXPLAINED TO PATIENT. NO QUESTIONS AT THIS TIME. CALL LIGHT WITHIN REACH.
--- NOTE | 2016-09-30 22:07 | NUR ---
PATIENT REFUSES TO WEAR TELEMETRY BC HE SAYS ANY THING THAT TOUCHES HIM HURTS. EXPLAINED TO PATIENT THAT I COULD LEAVE IT OFF FOR A LITTLE BIT BUT THAT HE HAS TO WEAR IT SO STRIPS CAN BE PRINTED AND HIS HEART IS MONITORED PER SENIOR LANDSCAPE ARCHITECT. VERBALIZED UNDERSTANDING. CALL LIGHT WITHIN REACH.
[2016-10-01] VITALS (13 sets, daily range): BP systolic 133–197; BP diastolic 43–86
--- NOTE | 2016-10-01 00:05 | NUR ---
PT RESTIN GIN BED WITH EYES CLOSED RODGERS CATHETER PATENT TO CLEAR YELLOW URINE PER GRAVILTY FLOW. NO ACUTE DISTRESS NOTED SIDE RAILS UP X 2
[2016-10-01 01:11] LABS: HEMATOCRIT 24.5 % (42.0-54.0); MCH 25.7 pg (26.0-34.0); MCHC 30.6 g/dL (31.0-37.0); MCV 83.9 fL (80.0-100.0); MEAN PLATELET VOLUME 9.9 fL (7.4-10.4); RBC 2.92 10x6/uL (4.20-6.10); RDW 17.2 % (11.5-14.5); WBC 9.7 10x3/uL (4.8-10.8)
[2016-10-01 01:40] LABS: HEMOGLOBIN 7.5 g/dL (13.5-17.5)
--- NOTE | 2016-10-01 04:58 | NUR ---
PT REFUSES TO HAVE DIRECTOR GENERAL ON REMOVED HIMSELF STATING IT HURTS HIS SKIN AND HE DOESNT HAVE HEART PROBLEMS ATTEMPTED PER THIS NURSE AND NURSE CANDY COUNTER CLERK TO EXPLAIN WHY WITH LARGE AMOUNT OF EDEMA PRESENT IT WAS PRECAUTIONARY MEASURE TO MONITOR FOR ANY ABNORMALITY OR CHANGE IN HEART RHYTHM PT STILL REFUSES.
[2016-10-01 05:18] LABS: BASOPHILS 0.2 % (0-2); EOSINOPHILS 3.6 % (0-7); HEMATOCRIT 24.5 % (42.0-54.0); IMMATURE GRANULOCYTES 0.4 % (0-5); LYMPHOCYTES 10.6 % (15-50); MCH 25.7 pg (26.0-34.0); MCHC 30.6 g/dL (31.0-37.0); MCV 83.9 fL (80.0-100.0); MEAN PLATELET VOLUME 10.2 fL (7.4-10.4); MONOCYTES 9.6 % (2-11); NEUTROPHILS 75.6 % (40-80); PLATELET COUNT 418 10x3/uL (130-400); RBC 2.92 10x6/uL (4.20-6.10); RDW 17.2 % (11.5-14.5)
[2016-10-01 05:23] LABS: ANION GAP 11.6 mmol/L (8-16); BILIRUBIN - TOTAL 0.2 mg/dL (0.2-1.3); CARBON DIOXIDE 26.9 mmol/L (21.0-32.0); CREATININE - SERUM 1.3 mg/dL (0.6-1.3); POTASSIUM - SERUM 3.5 mmol/L (3.5-5.1); PROTEIN - SERUM 5.1 g/dL (6.4-8.2)
[2016-10-01 05:36] LABS: HEMOGLOBIN 7.5 g/dL (13.5-17.5)
--- NOTE | 2016-10-01 07:45 | NUR ---
SLEEPING, AROUSES TO VOICE, BED LOWEST POSITION, BREATHING EVEN AND SLIGHTLY LABORED, CALL LIGHT IN REACH, WILL CONTINUE TO MONITOR
[2016-10-01 09:15] LABS: FOLATE (FOLIC ACID) - SERUM 11.1 ng/mL (>3.0)
--- NOTE | 2016-10-01 11:16 | NUR ---
Rehab Note- Reviewed the patient's medical record. The patient had a recent IRF stay & was discharged home. Is noted to have recent hospitalizations at other hospitals since [facility] acute rehab stay. The patient is very low functionally. Would recommend a SNF stay or retirement placement due to the patient's living environment. Spoke with Nicole CM and ANUM Wilson about the patient. Thank you for this referral! Philomena Newman RN Clinical Liaison, [facility] Rehab
--- NOTE | 2016-10-01 16:48 | NUR ---
HEPARIN GTT. INITIATED AT 1000 UNITS/HR. PER MD ORDERS. VIA LEFT GROIN CVL.
--- NOTE | 2016-10-01 17:55 | NUR ---
RECEIVED TO FLOOR FROM OR, PT STATES HIS LEG IS REALLY TENDER, HE WON'T LET US TOUCH IT TO LOOK AT IT, SOME BLEEDING NOTED AROUND BANDAGE
--- NOTE | 2016-10-01 19:37 | NUR ---
PT REFUSES TO LET US CLEAN AROUND HIS LEFT GROIN CVL
--- NOTE | 2016-10-01 19:45 | NUR ---
ANSWERED PATIENT'S CALL LIGHT. PATIENT APPEARED ANGERY, YELLING AND SAYING CUSS WORDS, TELLING ME TO DRY HIS BACK OFF, HE STATED HE HAS BEEN SWEATING AND HIS BACK IS ITCHING. TOLD PATIENT I WILL NEED TO CHANGE HIS LINENS, HE SAID "WELL THAT IS NOT GOING TO HAPPEN, JUST FORGET IT. JUST USE A TOWEL AND DRY MY BACK OFF WHEN I ROLL OVER." PATIENT ROLLED OVER TO HIS RIGHT SIDE, DRIED HIS BACK WITH A TOWEL. PATIENT TOLD ME TO GET THE PAD OUT FROM UNDER HIM AND NOT PUT ANOTHER ONE UNDER HIM. THERE IS BLOOD ON THE PAD FROM THE CVL LOCATED IN HIS LEFT GROIN. THE DRESSING IS OFF OF THE CVL, THERE IS NOTHING COVERING IT. 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 AND I ALSO KNOW HOW MY BODY IS. I HAVE HAD A PICC LINE, 2 MIDLINES, AND ONE IN MY CHEST TOO. BELIEVE ME I KNOW ALL ABOUT IT. AND YOU ARE NOT GOING TO MESS WITH IT, OR PUT A DRESSING ON IT. JUST IRRIGATE IT EVERY NOW AND THEN AND RUN THE MEDICATION AND BLOOD." PATIENT'S TELEMETRY IS ON THE BEDSIDE TABLE, ASKED PATIENT ABOUT IT, HE SAID "I AM NOT WEARING THAT THING, IT IS JUST ANOTHER REASON FOR MEDICARE TO BILL ME. AND IT BOTHERS ME."
--- NOTE | 2016-10-01 19:46 | NUR ---
LEFT CHEST IV REMOVED TIP INTACT
--- NOTE | 2016-10-01 20:10 | NUR ---
PT REST IN BED, EYE CLOSE, BED LOW, CALL LIGHT WITHIN REACH.
--- NOTE | 2016-10-01 21:20 | NUR ---
STOPPED HEPARIN DRIP FOR BLOOD TRANSFUSION.
--- NOTE | 2016-10-01 21:22 | NUR ---
FIRST UNIT OF PRBC STARTED.
--- NOTE | 2016-10-01 21:36 | NUR ---
STAYED WITH PATIENT FOR THE FIRST 15 MINS OF THE BLOOD TRANSFUSION. PATIENT TOLERATING WELL. NOTIFIED PATIENT'S NURSE BENITO THAT THE FIRST 15 MINUTES ARE UP AND SHE WILL NEED TO MONITOR HIM EVERY 15 MINUTES AND DO HIS V/S. SHE STATED "YES I WILL BE BACK AT 2150 TO DO HIS NEXT VITAL SIGNS."
[2016-10-02] VITALS (13 sets, daily range): BP systolic 134–169; BP diastolic 58–78
--- NOTE | 2016-10-02 01:39 | NUR ---
2 UNIT OF PRBC STARTED.
--- NOTE | 2016-10-02 03:35 | NUR ---
PT C/O OF ITCH ON BACK, MOISTURIZER LOTION APPLIED ON BACK.
--- NOTE | 2016-10-02 05:54 | NUR ---
RESTARTED HEPARIN DRIP AT 10ML/HR
[2016-10-02 07:23] LABS: BASOPHILS 0.4 % (0-2); EOSINOPHILS 5.3 % (0-7); HEMATOCRIT 28.4 % (42.0-54.0); HEMOGLOBIN 8.9 g/dL (13.5-17.5); IMMATURE GRANULOCYTES 0.7 % (0-5); LYMPHOCYTES 10.9 % (15-50); MCH 26.6 pg (26.0-34.0); MCHC 31.3 g/dL (31.0-37.0); MEAN PLATELET VOLUME 9.8 fL (7.4-10.4); MONOCYTES 13.6 % (2-11); NEUTROPHILS 69.1 % (40-80); PLATELET COUNT 420 10x3/uL (130-400); RBC 3.34 10x6/uL (4.20-6.10); RDW 16.7 % (11.5-14.5)
[2016-10-02 07:25] LABS: HEMATOCRIT 28.7 % (42.0-54.0); HEMOGLOBIN 8.9 g/dL (13.5-17.5); MCH 26.5 pg (26.0-34.0); MCV 85.4 fL (80.0-100.0); MEAN PLATELET VOLUME 9.8 fL (7.4-10.4); RBC 3.36 10x6/uL (4.20-6.10); RDW 16.6 % (11.5-14.5); WBC 7.1 10x3/uL (4.8-10.8)
--- NOTE | 2016-10-02 07:30 | NUR ---
A & O, CALL LIGHT IN REACH, BED LOWEST POSITION, COMPLAINTS OF BACK ITCHING, HEPARIN DRIP CHANGED TO 1200 UNITS/HR BOLUS OF 3000 UNITS GIVEN, PTT 29.5 PLACED A REDRAW FOR 1730, CHANGED DRESSING ON LEFT GROIN CVL, WILL CONTINUE TO MONITOR
[2016-10-02 08:47] LABS: ANION GAP 11.1 mmol/L (8-16); BILIRUBIN - TOTAL 0.39 mg/dL (0.2-1.3); CARBON DIOXIDE 28.1 mmol/L (21.0-32.0); CREATININE - SERUM 1.2 mg/dL (0.6-1.3); POTASSIUM - SERUM 3.2 mmol/L (3.5-5.1); PROTEIN - SERUM 5.3 g/dL (6.4-8.2)
[2016-10-02 08:48] LABS: ALBUMIN 0.2 g/dL (3.4-5.0); CALCIUM 6.9 mg/dL (8.5-10.1)
--- NOTE | 2016-10-02 13:14 | NUR ---
NUTRITION MONITORING & EVAL CHART REVIEWED, PT CURRENTLY NPO FOR PROCEDURE. WILL PROVIDE DIET WHEN RESUMED, MONITOR PO INTAKE. RD FOLLOWING
--- NOTE | 2016-10-02 13:23 | NUR ---
IN BED AT THIS TIME WITH RESPIRATIONS EVEN AND NON LABORED. CALL LIGHT IN REACH, DENIES NEEDS AT THIS TIME. WILL CONTINUE WITH PLAN OF CARE.
--- NOTE | 2016-10-02 15:40 | NUR ---
CM attempted to call daughter (Tiffanie- [phone]) as requested by patient but she did not answer.
--- NOTE | 2016-10-02 21:03 | NUR ---
PATIENT REFUSED TELE AND STAT LOCK FOR RODGERS
[2016-10-03] VITALS: BP 142/72
--- NOTE | 2016-10-03 03:39 | NUR ---
CHANGED PATIENT'S CENTRAL LINE DRESSING
[2016-10-03 03:52] LABS: HEMATOCRIT 27.6 % (42.0-54.0); HEMOGLOBIN 8.8 g/dL (13.5-17.5); MCH 26.8 pg (26.0-34.0); MCHC 31.9 g/dL (31.0-37.0); MCV 84.1 fL (80.0-100.0); MEAN PLATELET VOLUME 9.6 fL (7.4-10.4); RBC 3.28 10x6/uL (4.20-6.10); RDW 16.7 % (11.5-14.5); WBC 7.3 10x3/uL (4.8-10.8)
--- NOTE | 2016-10-03 05:56 | NUR ---
SPOKE WITH MICHAEL IN LAB ABOUT NOT HAVING RESULTS TO THE PTT DROPPED OFF AT APROX 0340. MICHAEL STATED THAT SHE WOULD FIND IT AND GET THE RESULTS IN.
--- NOTE | 2016-10-03 06:03 | NUR ---
SPOKE WITH MICHAEL IN LAB ABOUT PATIENT'S PTT LAB. THE CORRECT TUBE FOR THE PTT LAB WAS NOT BROUGHT UP AND THE LAB WAS NOT RUN. MICHAEL WILL RUN THE PTT WITH THE AM LABS THAT WERE SENT DOWN TO LAB.
--- NOTE | 2016-10-03 06:16 | NUR ---
ATTEMPTED TO HAVE CONSENTS SIGNED BY PATIENT. PATIENT STATED THAT HIS DAUGHTER BEBO IS HIS POA AND HE WOULD LIKE HER TO SIGN THE CONSENTS
--- NOTE | 2016-10-03 06:24 | NUR ---
ATTEMPTED TO CONTACT STAFFANI, PATIENT'S DAUGHTER. NO VM SETUP
--- NOTE | 2016-10-03 06:31 | NUR ---
ATTEMPTED TO CONTACT STAFFANI, PATIENT'S DAUGHTER. NO VM SETUP
--- NOTE | 2016-10-03 06:45 | NUR ---
ATTEMPTED TO CONTACT STAFFANI, PATIENT'S DAUGHTER. NO VM SETUP
[2016-10-03 06:59] LABS: BASOPHILS 0.4 % (0-2); EOSINOPHILS 4.6 % (0-7); HEMATOCRIT 27.3 % (42.0-54.0); HEMOGLOBIN 8.5 g/dL (13.5-17.5); IMMATURE GRANULOCYTES 0.6 % (0-5); LYMPHOCYTES 14.2 % (15-50); MCH 26.3 pg (26.0-34.0); MCHC 31.1 g/dL (31.0-37.0); MCV 84.5 fL (80.0-100.0); MEAN PLATELET VOLUME 9.7 fL (7.4-10.4); MONOCYTES 13.6 % (2-11); NEUTROPHILS 66.6 % (40-80); PLATELET COUNT 401 10x3/uL (130-400); RBC 3.23 10x6/uL (4.20-6.10)
[2016-10-03 07:09] LABS: ALBUMIN 1.2 g/dL (3.4-5.0); ANION GAP 10.6 mmol/L (8-16); BILIRUBIN - TOTAL 0.3 mg/dL (0.2-1.3); CALCIUM 7.2 mg/dL (8.5-10.1); CARBON DIOXIDE 28.6 mmol/L (21.0-32.0); CREATININE - SERUM 1.2 mg/dL (0.6-1.3); POTASSIUM - SERUM 3.2 mmol/L (3.5-5.1); PROTEIN - SERUM 5.2 g/dL (6.4-8.2)
--- NOTE | 2016-10-03 08:38 | NUR ---
AWAKE AND ALERT. ORIENTED TO SELF. DIFFICULT TO ASSESS ORIENTATION PATIENT BECOMES BELIGERANT AND SAYS "IT DOESN'T MATTER". LUNGS ARE CLEAR BILATERALLY, DENIES COUGH. SKIN IS INTACT WITH REDNESS AND 3 PLUS EDEMA NOTED BASICALLY EVERYWHERE. HE STATED THIS IS ONGOING. CENTRAL LINE TO LEFT GROIN IS PATENT WITHOUT REDNESS AT INSERTION SITE. RODGERS PATENT WITH CLEAR YELLOW URINE. NPO AT THIS TIME FOR POSSIBLE PROCEDURE. REFUSED OFFER OF HELP WITH MENU.
--- NOTE | 2016-10-03 09:30 | NUR ---
REFUSED TO WEAR TELEMETY. STATED IT HURT HIM TO HAVE IT ON.
--- NOTE | 2016-10-03 10:15 | NUR ---
SURGERY CANCELLED FOR TODAY SINCE PATIENT REFUSED TO SIGN PERMITS.
--- NOTE | 2016-10-03 12:15 | NUR ---
LUNCH TRAY SERVED IN ROOM. PATIENT REFUSED AND SENT TRAY BACK TO KITCHEN. REFUSED OFFER OF ALTERNATIVE. SALES PLANNING COORDINATOR WNET IN AND DISCUSSED MENU SELECTION WITH PATIENT AND WAS ABLE TO CHANGE DIET TO ACCOMADATE PATIENTS CHOICES. WILL MONITOR.
[2016-10-03 12:49] VITALS: BP 139/73
--- NOTE | 2016-10-03 13:04 | NUR ---
NUTRITION MONITORING & EVAL CHART REVIEWED. PT VISIT. INSISTS HE IS NOT DIABETIC AND NO IDEA WHY HE IS ON A RENAL ADA DIET, REFUSING LUNCH TRAY. I CAN NOT FIND ANY HISTORY OF DM, NO RENAL MD FOLLOWING. LABS REVIEWED. WILL CHANGE DIET TO LOW NA+. WILL PROVIDE NEW MENU FOR DINNER, HONOR FOOD PREFERENCES. RD FOLLOWING
--- NOTE | 2016-10-03 15:00 | NUR ---
RESTING QUIETLY IN BED. DENIES NEEDS. NO CHANGES.
[2016-10-03 16:10] VITALS: BP 130/74
--- NOTE | 2016-10-03 19:51 | NUR ---
NO CHANGES AT THIS TIME. ATE ONLY A FEW BITES OF SUPPER. DENIES NEEDS.
[2016-10-03 20:00] VITALS: BP 131/64
--- NOTE | 2016-10-03 23:33 | NUR ---
ASSESSED, AT THE BEGINNING OF THE SHIFT. PT IS ALERT AND ORIENTED, ABLE TO VERBALIZE NEEDS. HE CONTINURES TO HAVE A RODGERS CATH AND IS ABLE TO ASSIST WITH TURNING BUT HAS TO HAVE HELP. HE HAS A HEPARIN DRIP WHICH WE ARE MONITORING AND A ERADICATOR FOR PAIN CONTROL. HE WILL BE NPO AT MIDNIGHT AND THERE IS A FIRST STEP MATTRESS IN PLACE. THE BED IS LOW, RAILS UP X'S 2 WITH THE CALL LIGHT AT HAND.
[2016-10-04 04:00] VITALS: BP 142/70
[2016-10-04 06:00] LABS: BASOPHILS 0.7 % (0-2); EOSINOPHILS 6.3 % (0-7); HEMATOCRIT 26.9 % (42.0-54.0); HEMOGLOBIN 8.4 g/dL (13.5-17.5); IMMATURE GRANULOCYTES 0.9 % (0-5); LYMPHOCYTES 22.8 % (15-50); MCH 26.6 pg (26.0-34.0); MCHC 31.2 g/dL (31.0-37.0); MCV 85.1 fL (80.0-100.0); MEAN PLATELET VOLUME 9.4 fL (7.4-10.4); MONOCYTES 15.8 % (2-11); NEUTROPHILS 53.5 % (40-80); PLATELET COUNT 373 10x3/uL (130-400); RBC 3.16 10x6/uL (4.20-6.10); RDW 16.9 % (11.5-14.5); WBC 5.8 10x3/uL (4.8-10.8)
[2016-10-04 06:22] LABS: ALBUMIN 1.2 g/dL (3.4-5.0); ANION GAP 9.9 mmol/L (8-16); BILIRUBIN - TOTAL 0.23 mg/dL (0.2-1.3); CALCIUM 7.1 mg/dL (8.5-10.1); CARBON DIOXIDE 30.6 mmol/L (21.0-32.0); CREATININE - SERUM 1.2 mg/dL (0.6-1.3); POTASSIUM - SERUM 3.5 mmol/L (3.5-5.1); PROTEIN - SERUM 5.3 g/dL (6.4-8.2)
--- NOTE | 2016-10-04 07:30 | NUR ---
AROUSES TO VERBAL STIMULATION. A/O X3. NO C/O AT THIS TIME. LUNGS ARE DIMINISHED THROUGHOUT LUNG RIDER. OCCASSIONAL PRODUCTIVE COUGH NOTED. SKIN IS INTACT BUT VERY REDDENED ON BACK PORTIONS 3-4 PLUS EDEMA NOTED TO EXTREMETIES. CVL TO LEFT GROIN IS PATENT WITHOUT REDNESS AT INSERTION SITE. RODGERS PATENT WITH CLEAR YELLOW URINE. DENIES NEEDS AT THIS TIME.
[2016-10-04 08:55] VITALS: BP 141/53
--- NOTE | 2016-10-04 10:00 | NUR ---
RESTING QUIETLY IWTH EYES CLOSED. ON FIRST STEP OVERLAY.
--- NOTE | 2016-10-04 12:00 | NUR ---
STILL RESITING WITH EYES CLOSED.
[2016-10-04 13:07] VITALS: BP 137/63
--- NOTE | 2016-10-04 15:00 | NUR ---
REPOSITIONED IN BED FOR COMFORT. DENIES NEEDS.
[2016-10-04 16:18] VITALS: BP 122/61
--- NOTE | 2016-10-04 18:19 | NUR ---
RESTING QUIETLY IN BED. DENIES NEEDS NO CHANGES NOTED. BLOOD DRAWN FROM LEFT GROIN CVL FOR PTT AND SENT TO LAB.
[2016-10-05] VITALS: BP 114/81
[2016-10-05 04:00] VITALS: BP 110/90
[2016-10-05 04:50] LABS: BASOPHILS 0.5 % (0-2); EOSINOPHILS 5.4 % (0-7); HEMATOCRIT 27.7 % (42.0-54.0); HEMOGLOBIN 8.6 g/dL (13.5-17.5); IMMATURE GRANULOCYTES 1.3 % (0-5); LYMPHOCYTES 15.4 % (15-50); MCH 26.4 pg (26.0-34.0); MEAN PLATELET VOLUME 9.3 fL (7.4-10.4); MONOCYTES 12.6 % (2-11); NEUTROPHILS 64.8 % (40-80); PLATELET COUNT 384 10x3/uL (130-400); RBC 3.26 10x6/uL (4.20-6.10); WBC 7.8 10x3/uL (4.8-10.8)
[2016-10-05 05:13] LABS: ALBUMIN 1.3 g/dL (3.4-5.0); ANION GAP 7.6 mmol/L (8-16); BILIRUBIN - TOTAL 0.18 mg/dL (0.2-1.3); CALCIUM 7.4 mg/dL (8.5-10.1); CREATININE - SERUM 1.2 mg/dL (0.6-1.3); POTASSIUM - SERUM 3.6 mmol/L (3.5-5.1); PROTEIN - SERUM 5.7 g/dL (6.4-8.2)
--- NOTE | 2016-10-05 07:15 | NUR ---
PERIPHERAL BLOOD DRAW FOR PTT 56.2.
--- NOTE | 2016-10-05 07:55 | NUR ---
HEPARIN INFUSION INCREASED BY 100 UNITS TO 17 ML/HR.
--- NOTE | 2016-10-05 09:08 | NUR ---
SCHEDULED MEDICATIONS ADMINISTERED AT THIS TIME WELL PRN BENADRYL FOR ITCHING. IV TO LEFT GROIN PATENT, BUT BLUE PORT WILL NOT DRAW BLOOD. ASSESSMENT PERFORMED PER FLOWSHEET. PT ALERT AND ORIENTED WITH RESPIRTIONS EVEN AND NON LABORED. 1ST STEP OVERLAY ON AND IN USE.
[2016-10-05 09:13] VITALS: BP 143/69
--- NOTE | 2016-10-05 10:30 | NUR ---
PT VOICED CONCERN AND WOULD LIKE TO BE TRANSFERRED TO THE ID IN [place]. ALSO WOULD LIKE TO BE ORDERED A REGULAR DIET. ORDERS OBTAINED FOR BOTH REQUESTS.
[2016-10-05 13:11] VITALS: BP 147/67
[2016-10-05 18:05] VITALS: BP 107/48
--- NOTE | 2016-10-05 18:26 | NUR ---
Late Entry 1030 CM received telephone call regarding request for transfer to [place] by the patient. TC to [facility] exped[facility], Noy. She advised to have primary MD call the medical office of the day when available. CM advised primary nurse, Renuka. DR Betts rounded in the afternoon. DEXTER provided contact phone number for [facility] expeditor's office to s/w the MOD. 1500 Received TC from primary nurse, that [facility] the [facility]. DR Bryant is the accepting physician. Patient will be assigned to floor 4B. Call report to [phone]. DEXTER spoke with the loan secretary, Mikayla, to obtain x/r disc and chart copy for transfer. CM obtained MD signature on [employer] form. DR Betts provided. Patient coordinator and primary nurse to complete transfer forms. [facility] to provide transportation via ground ambulance.
== END 2016-10-05 18:30 | disposition short-term general hospital (02) | DRG 603 ==
LOC: D.ER 10:10 → D.MS 13:27
PROVIDERS: Family Medicine; Surgery; ADMIT Emergency Medicine
PROC: B51C1ZA Fluoroscopy of Left Lower Extremity Veins using Low Osmolar Contrast, Guidance (ICD-10-PCS; 2016-10-01)
PROC: 06HY33Z Insertion of Infusion Device into Lower Vein, Percutaneous Approach (ICD-10-PCS; principal; 2016-10-01 12:45)
PROC: 06HY33Z Insertion of Infusion Device into Lower Vein, Percutaneous Approach (ICD-10-PCS; 2016-10-04)
PROC: B51C1ZA Fluoroscopy of Left Lower Extremity Veins using Low Osmolar Contrast, Guidance (ICD-10-PCS; 2016-10-04)
DX: L03.116 Cellulitis of left lower limb (principal); I82.621 Acute embolism and thrombosis of deep veins of right upper extremity; I82.C11 Acute embolism and thrombosis of right internal jugular vein; F17.203 Nicotine dependence unspecified, with withdrawal; D68.69 Other thrombophilia; L03.115 Cellulitis of right lower limb; R60.9 Edema, unspecified; N28.9 Disorder of kidney and ureter, unspecified; I73.9 Peripheral vascular disease, unspecified; D50.9 Iron deficiency anemia, unspecified; F43.10 Post-traumatic stress disorder, unspecified; X58.XXXA Exposure to other specified factors, initial encounter; J44.9 Chronic obstructive pulmonary disease, unspecified; Z86.73 Personal history of transient ischemic attack (TIA), and cerebral infarction without residual deficits; K21.9 Gastro-esophageal reflux disease without esophagitis; N18.2 Chronic kidney disease, stage 2 (mild)

== ENCOUNTER 2016-10-26 09:19 | Inpatient (IN) | payer MEDICARE ==
[~2016-10-26] VITALS: Ht 182.9 cm; Wt 115.5 kg
[2016-10-26 10:06] LABS: ALBUMIN 1.4 g/dL (3.4-5.0); ALKALINE PHOSPHATASE 94 U/L (46-116); ALT (SGPT) 21 U/L (10-68); BILIRUBIN - TOTAL 0.17 mg/dL (0.2-1.3); CALC OSMOLALITY 274 mosm/kg (275-300); CALCIUM 7.4 mg/dL (8.5-10.1); CARBON DIOXIDE 27.5 mmol/L (21.0-32.0); CHLORIDE - SERUM 106 mmol/L (98-107); GLUCOSE 112 mg/dL (74-106); POTASSIUM - SERUM 3.7 mmol/L (3.5-5.1); PROTEIN - SERUM 5.4 g/dL (6.4-8.2); SODIUM 136 mmol/L (136-145); UREA NITROGEN 17 mg/dL (7-18); eGFR NON AFRICAN AMERICAN 78 mL/min (90-120)
[2016-10-26 10:13] LABS: APPEARANCE CLOUDY (CLEAR); BILIRUBIN NEGATIVE (NEGATIVE); COLOR YELLOW (YELLOW); GLUCOSE NEGATIVE (NEGATIVE); KETONE NEGATIVE (NEGATIVE); LEUKOCYTE ESTERASE 1+ (NEGATIVE); NITRITE POSITIVE (NEGATIVE); PROTEIN 3+ mg/dL (NEGATIVE); SPECIFIC GRAVITY 1.025 (1.005-1.020); UROBILINOGEN NORMAL (NORMAL)
[2016-10-26 10:14] LABS: BACTERIA MANY /hpf (NONE SEEN); EPITHELIAL CELLS 0-5 /hpf (0-5); RED CELLS - URINE 0-5 /hpf (0-5)
[2016-10-26 10:14] LABS: BASOPHILS 0.2 % (0-2); EOSINOPHILS 5.9 % (0-7); HEMATOCRIT 29.3 % (42.0-54.0); HEMOGLOBIN 9.2 g/dL (13.5-17.5); IMMATURE GRANULOCYTES 0.5 % (0-5); MCH 26.4 pg (26.0-34.0); MCHC 31.4 g/dL (31.0-37.0); MEAN PLATELET VOLUME 9.6 fL (7.4-10.4); MONOCYTES 8.2 % (2-11); NEUTROPHILS 74.2 % (40-80); PLATELET COUNT 340 10x3/uL (130-400); RBC 3.49 10x6/uL (4.20-6.10); RDW 17.3 % (11.5-14.5); WBC 10.5 10x3/uL (4.8-10.8)
[2016-10-26 10:32] LABS: PRO BNP 413 pg/mL (0-125)
--- NOTE | 2016-10-26 12:50 | NUR ---
RECEIVED TO ROOM 2233 FROM ER VIA . ORIETED TO ROOM AND CALL LIGHT SYSTEM. CARE PLAN REVIEWED. CALL LIGHT IN REACH. WILL CONTINUE WITH PLAN OF CARE.
--- NOTE | 2016-10-26 13:55 | NUR ---
ELEMENTARY SPANISH TEACHER INITIATED PER ORDER. IVPB LEVAQUIN. FOOD TRAY ORDERED. CALL LIGHT IN REACH.
[2016-10-26 15:55] VITALS: BP 116/68
--- NOTE | 2016-10-26 15:59 | NUR ---
NO TELEMETRY PLACED ON PATIENT BECAUSE THERE ISN'T ANY TELEMETRY LEFT.
[2016-10-26 16:30] VITALS: BP 104/61; BMI 34.5
--- NOTE | 2016-10-26 17:26 | NUR ---
RODGERS CATH REMOVED WITH TIP INTACT. 16 FR RODGERS PLACED USING STERILE TECHNIQUE WITH ONLY A COUPLE OF CC OF CLOUDY SEDIMENT NOTED, OBTAINED SMALL SAMPLE AND SENT TO LAB FOR UA. LEG WOUNDS CLEANSED AND COVERED WITH KERLIX. CLEOCIN IVPB. CALL LIGHT IN REACH.
--- NOTE | 2016-10-26 18:16 | NUR ---
OBTAINED ANOTHER URINE SAMPLE FROM NEW CATHETER BECAUSE THERE WASN'T ENOUGH. NO CHANGES IN INITIAL ASSESSMENT. CALL LIGHT IN REACH. WILL CONTINUE WITH PLAN OF CARE.
[2016-10-26 18:28] LABS: APPEARANCE HAZY (CLEAR); BILIRUBIN NEGATIVE (NEGATIVE); COLOR YELLOW (YELLOW); GLUCOSE NEGATIVE (NEGATIVE); KETONE NEGATIVE (NEGATIVE); LEUKOCYTE ESTERASE TRACE (NEGATIVE); NITRITE NEGATIVE (NEGATIVE); PROTEIN 3+ mg/dL (NEGATIVE); SPECIFIC GRAVITY 1.025 (1.005-1.020); UROBILINOGEN NORMAL (NORMAL)
[2016-10-26 18:39] LABS: AMORPHOUS SEDIMENT <1+ /lpf (NONE SEEN); BACTERIA MANY /hpf (NONE SEEN); HYALINE CAST 0-5 /lpf (NONE SEEN); MUCUS >1+ /lpf (NONE SEEN); WHITE CELLS - URINE 25-50 /hpf (0-5)
--- NOTE | 2016-10-26 19:00 | NUR ---
REPORT RECIEVED ASSUMED CARE. PATIENT IN BED WITH IV INTACT. NO COMPLAINTS, CALL LIGHT WITHIN REACH.
[2016-10-26 19:53] VITALS: BP 129/66
--- NOTE | 2016-10-26 22:35 | NUR ---
PATIENT RECIEVED ANOTHER BOLUS PER SUPERVISOR DELIVERY DEPARTMENT AT THIS TIME. DRESSINGS TO BLE CHANGED. MULTIPLE SORES WITH YELLOW DRAINAGE TO DRESSINGS. CLEANED WITH WOUND HEADING PINNER AND REWRAPPED WITH KERLIX. PATIENT TOLERATED WITH SMALL AMOUNT OF BERNARDO. CALL LIGHT WITHIN REACH.
[2016-10-26 23:30] VITALS: BP 103/63
[2016-10-27 04:00] VITALS: BP 112/66
[2016-10-27 06:31] LABS: BASOPHILS 0.4 % (0-2); EOSINOPHILS 8.2 % (0-7); HEMATOCRIT 26.9 % (42.0-54.0); HEMOGLOBIN 8.3 g/dL (13.5-17.5); IMMATURE GRANULOCYTES 0.5 % (0-5); LYMPHOCYTES 11.3 % (15-50); MCH 25.9 pg (26.0-34.0); MCHC 30.9 g/dL (31.0-37.0); MCV 84.1 fL (80.0-100.0); MONOCYTES 12.1 % (2-11); NEUTROPHILS 67.5 % (40-80); PLATELET COUNT 294 10x3/uL (130-400); RDW 17.3 % (11.5-14.5); WBC 8.2 10x3/uL (4.8-10.8)
--- NOTE | 2016-10-27 06:45 | NUR ---
PATIENT IN BED WITH IV INTACT. NO COMPLAINTS AT THIS TIME. EYES CLOSED RESTING QUIETLY.
[2016-10-27 06:53] LABS: ALBUMIN 1.4 g/dL (3.4-5.0); ALKALINE PHOSPHATASE 81 U/L (46-116); ALT (SGPT) 20 U/L (10-68); CALC OSMOLALITY 277 mosm/kg (275-300); CALCIUM 7.6 mg/dL (8.5-10.1); CARBON DIOXIDE 28.4 mmol/L (21.0-32.0); CHLORIDE - SERUM 106 mmol/L (98-107); GLUCOSE 107 mg/dL (74-106); POTASSIUM - SERUM 3.8 mmol/L (3.5-5.1); PROTEIN - SERUM 5.1 g/dL (6.4-8.2); SODIUM 138 mmol/L (136-145); UREA NITROGEN 18 mg/dL (7-18); eGFR NON AFRICAN AMERICAN 78 mL/min (90-120)
--- NOTE | 2016-10-27 08:00 | NUR ---
PT AOX4 RESP EVEN AND NONLABORED PT DENIES NEEDS AT THIS TIME IV TO LEFT FOREARM PATENT AND INTACT AT THIS TIME SRX2 BED AT LOWEST SETTING CALL LIGHT WITHIN REACH WILL CONTINUE TO MONITOR
[2016-10-27 10:07] VITALS: BP 125/87
[2016-10-27 12:27] VITALS: BP 107/65
[2016-10-27 20:00] VITALS: BP 139/66
--- NOTE | 2016-10-27 22:07 | NUR ---
2000) REC'D. REQUESTING BOLUS INFORMED HAD AT 1700 WON'T BE DUE TILL AGAIN TILL 2099 WHICH IS EVERY 4HRS. NEEDED.VOICES UNDERSTANDING.DRSG LOWER EXT. X2 INTACT NEUROVASCULAR STATUS WNL. WILL CONTINUE TO MONITOR FOR ANY FURTHER CHGES. IN NEUROVASCULAR STATUS AND FOLLOW CURRENT PLAN OF CARE.
--- NOTE | 2016-10-27 22:24 | NUR ---
DILAUDID 1MG BOLUS GIVEN REQUESTED FOR LOWER EXT PAIN RATES PAIN 8 ON 1-10 PAIN SCALE.
[2016-10-28] VITALS: BP 142/70
--- NOTE | 2016-10-28 02:00 | NUR ---
PT IN BED WITH NO DISTRESS. RESPIRATIONS EVEN AND UNLABORED. SIDE RAILS X 2. BED LOW. CALL LIGHT IN REACH.
[2016-10-28 04:00] VITALS: BP 138/68
[2016-10-28 04:33] LABS: BASOPHILS 0.3 % (0-2); EOSINOPHILS 6.5 % (0-7); HEMATOCRIT 25.5 % (42.0-54.0); IMMATURE GRANULOCYTES 0.5 % (0-5); LYMPHOCYTES 16.4 % (15-50); MCH 26.2 pg (26.0-34.0); MCHC 31.4 g/dL (31.0-37.0); MCV 83.6 fL (80.0-100.0); MEAN PLATELET VOLUME 9.1 fL (7.4-10.4); MONOCYTES 14.1 % (2-11); NEUTROPHILS 62.2 % (40-80); PLATELET COUNT 296 10x3/uL (130-400); RBC 3.05 10x6/uL (4.20-6.10); RDW 17.6 % (11.5-14.5); WBC 7.4 10x3/uL (4.8-10.8)
[2016-10-28 05:32] LABS: ALBUMIN 1.3 g/dL (3.4-5.0); ALKALINE PHOSPHATASE 90 U/L (46-116); ALT (SGPT) 16 U/L (10-68); CALC OSMOLALITY 278 mosm/kg (275-300); CALCIUM 7.6 mg/dL (8.5-10.1); CARBON DIOXIDE 28.1 mmol/L (21.0-32.0); CHLORIDE - SERUM 105 mmol/L (98-107); CREATININE - SERUM 0.9 mg/dL (0.6-1.3); GLUCOSE 111 mg/dL (74-106); POTASSIUM - SERUM 3.8 mmol/L (3.5-5.1); PROTEIN - SERUM 5.2 g/dL (6.4-8.2); SODIUM 138 mmol/L (136-145); UREA NITROGEN 19 mg/dL (7-18); eGFR NON AFRICAN AMERICAN 89 mL/min (90-120)
[2016-10-28 05:35] LABS: BILIRUBIN - TOTAL 0.09 mg/dL (0.2-1.3)
[2016-10-28 08:33] VITALS: BP 127/71
--- NOTE | 2016-10-28 10:45 | NUR ---
WOUND CARE NURSE HERE FOR TREATMENT PT REFUSES TO ALLOW WRAPPING WITH KERLIX STATES THAT THE MD CAN COME TALK TO HIM IF HE HAS A PROBLEM BUT WILL NOT ALLOW IT TO BE WRAPPED WITH ANY KIND OF MATERIAL.
--- NOTE | 2016-10-28 10:55 | NUR ---
Wound care consult d/t open wounds on bilateral lower extremities. Numerous open areas noted, all are irregular in shape, superficial, hyperpigmented at periwound and on lower legs, sherwin, granular wound beds and a moderate bloody exudate. Edema is noted bilaterally. Pt states he has extreme pain in his legs and screams when attempts are made to cleanse them. He refuses to allow nurses to wrap his legs with kerlix (as per Dr. Montague's orders). He will allow Adaptic (vasoline gauze) to be placed over wounds. Legs are currently resting on pillows. Pt states this hurts. He complains pain medication is not working and wants it increased. Primary Rn is discussing with physician. Wound care will monitor.
--- NOTE | 2016-10-28 11:05 | NUR ---
PATIENT ALERT IN MID STROUD POSITION WATCHING TV. NO SIGNS OF DISTRESS NOTED. SIDE RAILS UP X2. BED IN LOW POSITION. CALL LIGHT IN REACH.
--- NOTE | 2016-10-28 11:21 | NUR ---
Patient Name: MAKENZIE DESAI Admission Status: ER Accout number: [id number] Admission Date: 10-26-2016 : 1945 Admission Diagnosis: Attending: TIMOTHY Current LOS: 2 Anticipated DC Date: 10-31-2016 Planned Disposition: Shelter Facility Primary Insurance: MEDICARE A & B Discharge Planning Comments: CM MET WITH PATIENT REGARDING D/C NEEDS AND PLANS. PATIENT STATED HE IS IN REHAB AT [facility] AND WILL RETURN THERE AT DISCHARGE. CM CALLED [facility] AND CONFIRMED INFORMATION. PATIENT STATED HE USES A WHEELCHAIR WHILE AT FACILITY. PATIENTS PCP IS AT [facility] IN [place]. PATIENT USES [facility]. PATIENT STATED SHE DOES NOT HAVE TO GO TO [place] AND WILL NOT. CM WILL CONTINUE TO FOLLOW PATIENT WITH D/C NEEDS AND PLANS. [facility] [phone] ZEKE (DAUGHTER) [phone] [facility]- [phone] Orthopedic Specialist: Laury Garcia Is the patient Alert and Oriented? Yes 0 * How many steps to enter\exit or inside your home? 0 0 * PCP [facility] ([facility] ([address]) 0 * [facility] 0 * Preadmission Environment Shelter Facility 0 * Facility Name [facility] 0 * ADLs Partial Dependent 0 * Partial ADLs (Assistance needed) Ambulation Bathing Dressing Medication Management Toileting Transfers 0 * Equipment Wheelchair 0 * Other Equipment [facility] HAS OTHER EQUIP IF NEEDED. 0 * List name and contact numbers for known caregivers / representatives who currently or will assist patient after discharge: CLOTILDE (DAUGHTER) [phone] 0 * Community resources currently utilized None 0 * Additional services required to return to the preadmission environment? Yes 0 * Can the patient safely return to the preadmission environment? Yes 0 * Has this patient been hospitalized within the prior 30 days at any hospital? Yes 0 Grand Total: 0
[2016-10-28 12:17] VITALS: BP 126/68
[2016-10-28 13:29] VITALS: Ht 182.9 cm; Wt 115.5 kg
--- NOTE | 2016-10-28 14:41 | NUR ---
ALL DRESSINGS CHANGED PER WOUND CARE NURSE EARLIER PT WITH NO DISTRESS NOTED AT THIS TIME HAD 1 MG BOLUS VIA [facility] CONTACT REPRESENTATIVE EARLIER AND STATES RELEIF AT THIS TIME.
[2016-10-28 16:42] VITALS: BP 130/68
--- NOTE | 2016-10-28 17:55 | NUR ---
BOLUS DOSE OF DILAUDID 1 MG GIVEN PER ORDER VIA MANAGER MED SURG
--- NOTE | 2016-10-28 18:41 | NUR ---
PT RESTING QUIETLY IN BED WITH EYES CLOSED
--- NOTE | 2016-10-28 21:58 | NUR ---
REC'D LYING IN BED. ALERT AND ORIENTED X4. REPORTED PAIN 8/. WILL ADMIN PM/AM MEDS PRESCRIBED. NO DISTRESS NOTED. IS NEEDING A NEW STAT LOCK ON LEG, WILL GET A NEW ON. INSTRUCTED TO CALL IF NEEDED ANYTHING. VERBALIZED UNDERSTANDING. DENIED FURTHER NEEDS AT THIS TIME. BED LOW, LOCKED, CALL LIGHT IN REACH. WILL CONT TO [facility]
[2016-10-29] VITALS: BP 128/75
--- NOTE | 2016-10-29 02:00 | NUR ---
PATIENT RESTING WITH EYES CLOSED AND NO VISIBLE SIGNS OF DISTRESS. BED IN LOWEST POSITION AND CALL LIGHT WITHIN REACH.
--- NOTE | 2016-10-29 02:30 | NUR ---
RESTING WITH EYES CLOSED. RESP EVEN AND UNLABORED. CALL LIGHT IN REACH.
[2016-10-29 04:00] VITALS: BP 139/66
[2016-10-29 06:14] LABS: BASOPHILS 0.4 % (0-2); EOSINOPHILS 7.9 % (0-7); HEMATOCRIT 27.6 % (42.0-54.0); HEMOGLOBIN 8.6 g/dL (13.5-17.5); IMMATURE GRANULOCYTES 0.6 % (0-5); LYMPHOCYTES 14.1 % (15-50); MCH 26.3 pg (26.0-34.0); MCHC 31.2 g/dL (31.0-37.0); MCV 84.4 fL (80.0-100.0); MEAN PLATELET VOLUME 9.3 fL (7.4-10.4); PLATELET COUNT 320 10x3/uL (130-400); RBC 3.27 10x6/uL (4.20-6.10); RDW 17.7 % (11.5-14.5); WBC 7.2 10x3/uL (4.8-10.8)
[2016-10-29 06:45] LABS: ALBUMIN 1.3 g/dL (3.4-5.0); ALKALINE PHOSPHATASE 110 U/L (46-116); ALT (SGPT) 16 U/L (10-68); CALC OSMOLALITY 285 mosm/kg (275-300); CHLORIDE - SERUM 106 mmol/L (98-107); CREATININE - SERUM 0.8 mg/dL (0.6-1.3); GLUCOSE 112 mg/dL (74-106); POTASSIUM - SERUM 4.2 mmol/L (3.5-5.1); PROTEIN - SERUM 4.7 g/dL (6.4-8.2); SODIUM 142 mmol/L (136-145); UREA NITROGEN 19 mg/dL (7-18); eGFR NON AFRICAN AMERICAN > 90 mL/min (90-120)
--- NOTE | 2016-10-29 07:51 | NUR ---
SLEEPING, NO DISTRESS NOTED, BREATHING UNLABORED, CALL LIGHT IN REACH, BED LOWEST POSITION, WILL CONTINUE TO MONITOR
--- NOTE | 2016-10-29 08:00 | NUR ---
SLEEPING WITHOUT DISTRESS.CONTACT ISOLATION MAINTAINED.
--- NOTE | 2016-10-29 08:05 | NUR ---
PT ASLEEP WITH NO VISABLE SIGNS OF PAIN OR DISCOMFORT AT THIS TIME. BED IN LOW POSITION AND CALL LIGHT WITHIN REACH. WILL CONTINUE TO MONITOR.
[2016-10-29 08:54] VITALS: BP 124/66
[2016-10-29 11:55] VITALS: BP 139/65
[2016-10-29 15:48] VITALS: BP 130/62
--- NOTE | 2016-10-29 19:35 | NUR ---
REPORT RECEIVED FROM STEEL LAYOUT WORKER NURSE. CALL LIGHT IN REACH.
[2016-10-29 20:00] VITALS: BP 146/87
--- NOTE | 2016-10-29 20:20 | NUR ---
ASSESSMENT COMPLETED. CALL LIGHT IN REACH. WILL CONTINUE WITH PLAN OF CARE.
--- NOTE | 2016-10-29 22:39 | NUR ---
DARREL GRANDA. REFUSES PASSWORD AT THIS TIME.
--- NOTE | 2016-10-29 23:30 | NUR ---
LASIX IVP ADMINISTERED PER ORDERED. WANTED DRSG APPLIED BUT PATIENT STARTED SCREAMING AND YELLING ANYTIME I BARELY TOUCHED HIS LEGS. HE WANTED HIS LEGS PLACED IN STIRRUPS TO KEEP THEM COMPLETELY OFF OF THE BED. I EXPLAINED TO PATIENT THAT WE DO NOT HAVE STIRRUPS HERE AND WE WOULD NOT BE ABLE TO KEEP HIS LEGS COMPLETELY OFF OF THE BED WITH NOTHING TOUCHING THEM UNLESS HE WAS ABLE TO HOLD THEM UP. HE BECAME VERY MAD AND IRRITATED AND STATED "THIS IS A HOSPITAL AND I KNOW THEY HAVE THEM HERE. I CAN'T GET ANY PAIN RELIEF BECAUSE THIS MACHINE KEEPS LOCKING ME OUT." I EXPLAINED TO PATIENT TO HIM AGAIN THAT WE DO NOT HAVE ANY STIRRUPS AND THE PAIN PUMP WAS SET HOW THE DOCTOR ORDERED IT. HE DEMANDED THAT THE DOCTOR GET CALLED NOW AND SOMETHING ELSE ORDERED FOR PAIN.
[2016-10-30] VITALS: BP 127/71
--- NOTE | 2016-10-30 00:01 | NUR ---
DILAUDID BOLUS ADMINISTERED PER LOAN CLOSER. PATIENT IS SATISFIED AT THIS TIME. CALL LIGHT IN REACH.
--- NOTE | 2016-10-30 02:30 | NUR ---
RESTING WITH EYES CLOSED. RESP EVEN AND UNLABORED. CALL LIGHT IN REACH.
[2016-10-30 04:00] VITALS: BP 130/66
--- NOTE | 2016-10-30 04:00 | NUR ---
PT IN BED C/O PAIN. NURSE JUST TO ADMINISTER BOLUS DOSE ON WINDOWS AND DOORS INSTALLER. NO FURTHER NEEDS. SIDE RAILS X 2. BED LOW. ALARM ON. CALL LIGHT IN REACH.
[2016-10-30 05:33] LABS: BASOPHILS 0.2 % (0-2); HEMATOCRIT 26.9 % (42.0-54.0); HEMOGLOBIN 8.3 g/dL (13.5-17.5); IMMATURE GRANULOCYTES 0.8 % (0-5); LYMPHOCYTES 13.5 % (15-50); MCHC 30.9 g/dL (31.0-37.0); MCV 84.3 fL (80.0-100.0); MEAN PLATELET VOLUME 9.4 fL (7.4-10.4); MONOCYTES 12.7 % (2-11); NEUTROPHILS 63.8 % (40-80); PLATELET COUNT 353 10x3/uL (130-400); RBC 3.19 10x6/uL (4.20-6.10); RDW 17.5 % (11.5-14.5); WBC 8.3 10x3/uL (4.8-10.8)
[2016-10-30 06:11] LABS: ALBUMIN 1.3 g/dL (3.4-5.0); ALKALINE PHOSPHATASE 103 U/L (46-116); ALT (SGPT) 19 U/L (10-68); CALC OSMOLALITY 280 mosm/kg (275-300); CALCIUM 7.7 mg/dL (8.5-10.1); CHLORIDE - SERUM 105 mmol/L (98-107); CREATININE - SERUM 0.9 mg/dL (0.6-1.3); GLUCOSE 110 mg/dL (74-106); POTASSIUM - SERUM 4.3 mmol/L (3.5-5.1); PROTEIN - SERUM 4.9 g/dL (6.4-8.2); SODIUM 138 mmol/L (136-145); UREA NITROGEN 23 mg/dL (7-18); eGFR NON AFRICAN AMERICAN 89 mL/min (90-120)
--- NOTE | 2016-10-30 06:16 | NUR ---
NO CHANGES IN INITIAL ASSESSMENT. CALL LIGHT IN REACH. WILL CONTINUE WITH PLAN OF CARE.
--- NOTE | 2016-10-30 07:34 | NUR ---
RESTING, DENIES NEEDS, BED LOWEST POSITION, CALL LIGHT IN REACH, WILL CONITNUE TO MONITOR
[2016-10-30 08:53] VITALS: BP 130/51
--- NOTE | 2016-10-30 12:03 | NUR ---
CM REASSESSMENT NOTE: CM FAXED REFERRAL TO [facility] ([facility] NOTIFIED)
--- NOTE | 2016-10-30 14:35 | NUR ---
OT NOTE: PT PERFORMED WELL TODAY. REPORTED THAT HE WANTED TO GET UP AND GO TO BATHROOM. ABLE TO TRANSFER WITH MIN ASSIST AND UE SUPPORT FROM BED TO BS COMMODE; BED MOB WITH MOD ASSIST, PT UNABLE TO GET LES ON AND OFF OF BED WITHOUT ASSIST. PT REQUIRED TOTAL ASSIST WITH TOILET HYGIENE; MIN ASSIST WITH DONNING GOWN. ABLE TO TRANSFER BACK INTO BED WITH MIN ASSIST AND USE OF SIDERAIL; AGAIN, MOD ASSIST TO GET FEET BACK IN BED. HOWEVER, ONCE PT IS IN BED, HE CAN ROLL FROM SIDE TO SIDE AND PERFORM SIT TO SUPINE WITH MIN ASSIST. REPORTS CONTINUED EDEMA IN UES, BUT THOUGHT THAT THE L SIDE WAS IMPROVING. ELEVATED B UES ON PILLOWS TO HELP ELEVIATE EDEMA IN UES
[2016-10-30 16:35] VITALS: BP 108/68
--- NOTE | 2016-10-30 17:04 | NUR ---
OT NOTE: PT COMPLETED BUE AROM FOR INCREASED I WITH ADLS. PT COMPLETED SIMPLE GROOMING WITH SET UP. THANK YOU, GEORGETTE RICHARDS/Hussain
[2016-10-30 20:00] VITALS: BP 134/66
[2016-10-31] VITALS: BP 136/71
--- NOTE | 2016-10-31 03:58 | NUR ---
RN NOTE: PT LYING IN SUPINE POSITION WITH EYES CLOSED AND UNLABORED BREATHING. CONTACT ISOLATION IN PLACE. WILL CONTINUE TO MONITOR FOR NEEDS. CALL LIGHT WITHIN REACH.
[2016-10-31 04:00] VITALS: BP 132/57
[2016-10-31 05:43] LABS: BASOPHILS 0.3 % (0-2); EOSINOPHILS 10.1 % (0-7); HEMATOCRIT 26.1 % (42.0-54.0); IMMATURE GRANULOCYTES 0.4 % (0-5); LYMPHOCYTES 13.9 % (15-50); MCH 25.8 pg (26.0-34.0); MCHC 30.7 g/dL (31.0-37.0); MCV 84.2 fL (80.0-100.0); MONOCYTES 10.4 % (2-11); NEUTROPHILS 64.9 % (40-80); PLATELET COUNT 328 10x3/uL (130-400); RDW 17.5 % (11.5-14.5); WBC 7.4 10x3/uL (4.8-10.8)
[2016-10-31 06:29] LABS: ALBUMIN 1.2 g/dL (3.4-5.0); ALKALINE PHOSPHATASE 109 U/L (46-116); BILIRUBIN - TOTAL 0.12 mg/dL (0.2-1.3); CALC OSMOLALITY 281 mosm/kg (275-300); CARBON DIOXIDE 28.8 mmol/L (21.0-32.0); CHLORIDE - SERUM 106 mmol/L (98-107); CREATININE - SERUM 0.9 mg/dL (0.6-1.3); GLUCOSE 107 mg/dL (74-106); POTASSIUM - SERUM 4.1 mmol/L (3.5-5.1); PROTEIN - SERUM 5.3 g/dL (6.4-8.2); SODIUM 140 mmol/L (136-145); UREA NITROGEN 22 mg/dL (7-18); eGFR NON AFRICAN AMERICAN 89 mL/min (90-120)
[2016-10-31 06:30] LABS: ALT (SGPT) 26 U/L (10-68)
--- NOTE | 2016-10-31 07:00 | NUR ---
REPORT RECIEVED ASSUMED CARE. PATIENT IN BED WITH NO COMPLAINTS. IV INTACT. CALL LIGHT WITHIN REACH.
--- NOTE | 2016-10-31 07:45 | NUR ---
ASSESSMENT COMPLETE, VS STABLE. PATIENT IN BED WITH IV INTACT. NO COMPLAINTS AT THIS TIME. BLE WITH WOUNDS. WOUNDS ARE DRYING UP, NO WEEPING. PATIENT REFUSED FOR HIS LEGS TO BE WRAPPED WITH KERLIX. CALL LIGHT WITHIN REACH.
[2016-10-31 08:55] VITALS: BP 128/61
--- NOTE | 2016-10-31 12:00 | NUR ---
PATIENT SITTING UP IN BED EATING AT THIS TIME. IV INTACT. CALL LIGHT WITHIN REACH.
[2016-10-31 12:23] VITALS: BP 148/61
--- NOTE | 2016-10-31 12:24 | NUR ---
OT NOTE: PTS LES APPEARED BETTER TODAY; LESS DRAINAGE NOTED. HOWEVER, HE REPORTS NO IMPROVEMENT IN PAIN. ALSO REPORTED THAT HIS ARMS BEGAN TO BLEED LAST NIGHT AND WERE HURTING TODAY; CONT WITH EDEMA IN B UES. EDUCATED ON B UE AROM EXS AND IMPORTANCE OF KEEPING ARMS ELEVATED TOLERATED. PERFORMED BED MOB WITH MIN ASSIST
[2016-10-31] MEDS ORDERED: FUROSEMIDE10 MG/M1 IV (13:59)
[2016-10-31] MEDS ORDERED: XARELTO20 MG PO (13:59)
[2016-10-31] MEDS ORDERED: MERREM 1 GM/NS 11 G1 IV (13:59)
[2016-10-31] MEDS ORDERED: PROTONIX I40 MG/VIAL IV (14:00)
--- NOTE | 2016-10-31 14:16 | NUR ---
CM REASSESSMENT NOTE: PATIENT HAS BEEN ACCEPTED AND IS DISCHARGING TODAY TO [facility] AT [facility] BY AMBULANCE.
--- NOTE | 2016-10-31 14:45 | NUR ---
REPORT CALLED TO FRANC AT [facility] AT THIS TIME.
--- NOTE | 2016-10-31 15:05 | NUR ---
PATIENT IN BED WITH EYES CLOSED RESTING QUIETLY AT THIS TIME. IV INTACT. NO COMPLAINTS, OR SIGNS OF DISTRESS. CALL LIGHT WITHIN REACH.
--- NOTE | 2016-10-31 15:50 | NUR ---
PATIENT MOVED TO [facility] BY PARAMEDICS AND NURSE. PERSONAL BELONGINGS AND DC PAPERS GIVEN. ESCORTED TO AMBULANCE AT THIS TIME BY PARAMEDICS.
== END 2016-10-31 15:53 | disposition short-term general hospital (02) | DRG 699 ==
LOC: D.ER 09:19 → D.MS 11:24
PROVIDERS: Emergency Medicine; Nurse Practitioner Family; ADMIT Family Medicine
PROC: 0T2BX0Z Change Drainage Device in Bladder, External Approach (ICD-10-PCS; principal; 2016-10-26)
DX: T83.518A Infection and inflammatory reaction due to other urinary catheter, initial encounter (principal); L03.116 Cellulitis of left lower limb; F17.203 Nicotine dependence unspecified, with withdrawal; L03.115 Cellulitis of right lower limb; S81.802A Unspecified open wound, left lower leg, initial encounter; S81.801A Unspecified open wound, right lower leg, initial encounter; D64.9 Anemia, unspecified; F32.9 Major depressive disorder, single episode, unspecified; B96.1 Klebsiella pneumoniae [K. pneumoniae] as the cause of diseases classified elsewhere; I73.9 Peripheral vascular disease, unspecified; G62.9 Polyneuropathy, unspecified; K21.9 Gastro-esophageal reflux disease without esophagitis; Z86.718 Personal history of other venous thrombosis and embolism

== ENCOUNTER 2016-11-06 16:42 | Emergency (ER) | payer MEDICARE ==
[2016-10-28 13:29] VITALS: BMI 34.4
[~2016-11-06 16:42] MED LIST changes: +FUROSEMIDE10 MG/M1 IV; +MERREM 1 GM/NS 11 G1 IV; +PROTONIX I40 MG/VIAL IV; +XARELTO20 MG PO
[2016-11-06 17:41] LABS: ALBUMIN 1.5 g/dL (3.4-5.0); ALKALINE PHOSPHATASE 135 U/L (46-116); ALT (SGPT) 57 U/L (10-68); BILIRUBIN - TOTAL 0.15 mg/dL (0.2-1.3); CALC OSMOLALITY 280 mosm/kg (275-300); CALCIUM 7.7 mg/dL (8.5-10.1); CHLORIDE - SERUM 106 mmol/L (98-107); CREATININE - SERUM 0.8 mg/dL (0.6-1.3); GLUCOSE 100 mg/dL (74-106); POTASSIUM - SERUM 3.8 mmol/L (3.5-5.1); PROTEIN - SERUM 5.7 g/dL (6.4-8.2); SODIUM 140 mmol/L (136-145); UREA NITROGEN 19 mg/dL (7-18); eGFR NON AFRICAN AMERICAN > 90 mL/min (90-120)
[2016-11-06 17:56] LABS: APPEARANCE CLEAR (CLEAR); BILIRUBIN NEGATIVE (NEGATIVE); COLOR YELLOW (YELLOW); GLUCOSE NEGATIVE (NEGATIVE); KETONE NEGATIVE (NEGATIVE); LEUKOCYTE ESTERASE NEGATIVE (NEGATIVE); NITRITE NEGATIVE (NEGATIVE); PROTEIN 1+ mg/dL (NEGATIVE); UROBILINOGEN NORMAL (NORMAL)
== END 2016-11-06 20:30 | disposition home or self-care (01) ==
LOC: D.ER 16:42
PROVIDERS: Emergency Medicine
DX: I87.8 Other specified disorders of veins (principal); J44.9 Chronic obstructive pulmonary disease, unspecified; F17.200 Nicotine dependence, unspecified, uncomplicated; I49.3 Ventricular premature depolarization

== ENCOUNTER 2016-11-28 14:12 | Inpatient (IN) | payer MEDICARE ==
[~2016-11-28] VITALS: Ht 182.9 cm; Wt 115.9 kg
[2016-11-28 15:55] LABS: INR 1.46 (0.85-1.17); PROTIME 17.7 SECONDS (11.6-15.0)
[2016-11-28 15:58] LABS: BASOPHILS 0.1 % (0-2); EOSINOPHILS 0.3 % (0-7); HEMATOCRIT 27.9 % (42.0-54.0); HEMOGLOBIN 8.8 g/dL (13.5-17.5); IMMATURE GRANULOCYTES 2.2 % (0-5); LYMPHOCYTES 8.9 % (15-50); MCHC 31.5 g/dL (31.0-37.0); MONOCYTES 8.2 % (2-11); NEUTROPHILS 80.3 % (40-80); PLATELET COUNT 609 10x3/uL (130-400); RBC 3.67 10x6/uL (4.20-6.10); RDW 17.2 % (11.5-14.5); WBC 17.6 10x3/uL (4.8-10.8)
[2016-11-28 16:00] LABS: ALBUMIN 0.8 g/dL (3.4-5.0); ALKALINE PHOSPHATASE 206 U/L (46-116); ALT (SGPT) 14 U/L (10-68); BILIRUBIN - TOTAL 0.14 mg/dL (0.2-1.3); CALC OSMOLALITY 269 mosm/kg (275-300); CALCIUM 7.9 mg/dL (8.5-10.1); CARBON DIOXIDE 21.6 mmol/L (21.0-32.0); CHLORIDE - SERUM 98 mmol/L (98-107); CREATININE - SERUM 1.5 mg/dL (0.6-1.3); GLUCOSE 105 mg/dL (74-106); POTASSIUM - SERUM 4.9 mmol/L (3.5-5.1); PROTEIN - SERUM 6.3 g/dL (6.4-8.2); SODIUM 128 mmol/L (136-145); UREA NITROGEN 49 mg/dL (7-18); eGFR NON AFRICAN AMERICAN 49 mL/min (90-120)
[2016-11-28 16:08] LABS: CREATINE KINASE 100 UL (21-232); MAGNESIUM - SERUM 2.2 mg/dL (1.8-2.4); PRO BNP 1269 pg/mL (0-125)
[2016-11-28 16:09] LABS: TROPONIN-I < 0.017 ng/mL (0.000-0.060)
[2016-11-28 17:35] LABS: APPEARANCE CLOUDY (CLEAR); BILIRUBIN NEGATIVE (NEGATIVE); COLOR STRAW (YELLOW); GLUCOSE NEGATIVE (NEGATIVE); KETONE NEGATIVE (NEGATIVE); LEUKOCYTE ESTERASE 1+ (NEGATIVE); NITRITE NEGATIVE (NEGATIVE); PROTEIN 3+ mg/dL (NEGATIVE); SPECIFIC GRAVITY 1.015 (1.005-1.020); UROBILINOGEN NORMAL (NORMAL)
[2016-11-28 17:37] LABS: BACTERIA MODERATE /hpf (NONE SEEN); MUCUS <1+ /lpf (NONE SEEN); RED CELLS - URINE >50 /hpf (0-5)
[2016-11-28 17:39] LABS: UDS - AMPHET NEGATIVE QUAL (NEGATIVE); UDS - BARB NEGATIVE QUAL (NEGATIVE); UDS - BENZO NEGATIVE QUAL (NEGATIVE); UDS - COCAINE NEGATIVE QUAL (NEGATIVE); UDS - METH NEGATIVE QUAL (NEGATIVE); UDS - OPIATE POSITIVE QUAL (NEGATIVE); UDS - PCP NEGATIVE QUAL (NEGATIVE); UDS - THC POSITIVE QUAL (NEGATIVE)
--- NOTE | 2016-11-28 22:25 | NUR ---
PT ARRIVES VIA STRETCHER FROM ER ACCOMPANIED BY NURSE TO ROOM. ADMISSION ASSESSMENT AND HISTORY COMPLETED, MEDICATIONS RECONCILED. CALL LIGHT PLACED WITHIN REACH. UNIT ROUTINES AND PROTOCOLS DISCUSSED WITH PT, HE VERBALIZED UNDERSTANDING. NO NEEDS VOICED. WILL CONT TO MONITOR.
[2016-11-28 22:58] VITALS: Ht 182.9 cm; Wt 115.9 kg
--- NOTE | 2016-11-29 01:20 | NUR ---
PT C/O PAIN, RATES @ 10/10 ON PAIN SCALE. NORCO 5/325 MG 2 TABS PO GIVEN. PT YELLS AT NURSE "THESE PILLS ARE NOT GOING TO HELP" HE SWALLOWS BOTH TABLETS. STATES HE IS GOING TO LEAVE AMA UNLESS HE RECEIVES IV DILAUDID NOW. CALL TO DR HENDRICKSON, FIRMWARE ARCHITECT FOR DR HENDRICKSON FOR FURTHER ORDERS. AWAITING RETURN CALL.
--- NOTE | 2016-11-29 02:00 | NUR ---
PT REFUSING ANY FURTHER CARE UNTIL THE PHYSICIAN RETURNS CALL. STATES HE EITHER GETS DILAUDID OR HE IS LEAVING AMA. AWAITING RETURN CALL FROM DR HENDRICKSON, WOOD HEEL FITTER MACHINE FOR DR HENDRICKSON.
--- NOTE | 2016-11-29 02:34 | NUR ---
DR HENDRICKSON PAGED ONCE MORE. PT HAS NOT RETURNED PREVIOUS CALL. PT REMAINS UPSET AND REQUESTING DILAUDID IV OR WILL LEAVE AMA. STATES HIS DAUGHTER IS ON THE WAY. AWAITING RETURN CALL FROM DR HENDRICKSON.
--- NOTE | 2016-11-29 02:40 | NUR ---
DR HENDRICKSON RETURNS CALL, STATES PT MAY HAVE INCREASED DOSE OF NORCO - 2 TABS PO Q6H PRN. DR HENDRICKSON STATES HE WILL NOT ORDER IV DILAUDID. PT UPDATED ON POC AND STATES HE WILL BE LEAVING AGAINST MEDICAL ADVICE AND IS CALLING HIS DAUGHTER TO COME AND PICK HIM UP. WILL HAVE PT SIGN AMA FORM FOR DISMISSAL.
--- NOTE | 2016-11-29 02:51 | NUR ---
IV TO LEFT CHEST WALL REMOVED AND DRSG APPLIED. PT TOLERATED WELL. PT SIGNS AMA FORM AND FORM P[LACED ONTO PT'S CHART. WILL ASSIST WITH HELPING PT DRESS AND GETTING INTO WC. AWAITING ARRIVAL OF PT'S DAUGHTER AT THIS TIME.
--- NOTE | 2016-11-29 03:19 | NUR ---
PT STATES UNABLE TO GET A HOLD OF HIS DAUGHTER NOW. STATES WANTING ANOTHER PHYSICIAN OR THE ER PHYSICIAN. EXPLAINED TO PT THAT HE IS ADMITTED TO DR HENDRICKSON. NO OTHER PHYSICIAN CAN COME TO SEE HIM, INCLUDING THE ER PHYSICIAN. PT VERY AGITATED AND UPSET HE IS NOT RECEIVING PAIN MEDICATION. PT STATES HE CAN GO HOME AND TAKE PAIN MEDICATION. EXPLAINED TO PT HE IS HERE FOR IV HYDRATION AND IV ANTIBIOTICS. WILL TRY AND RESITE PT'S IV AND GIVE IV ANTIBIOTICS WHILE PT IS ALLOWING US TO PROVIDE TREATMENT.
--- NOTE | 2016-11-29 03:28 | NUR ---
PT NOW REFUSING TO ALLOW NURSING STAFF TO SITE AN IV. WILL MONITOR.
--- NOTE | 2016-11-29 04:06 | NUR ---
PT INSISTS BEING DISMISSED AMA AND STATES HE WANTS TO GO TO THE THE ER. SPOKE WITH NURSING OPERATING ENGINEER. THIS IS PT'S RIGHT. DISCHARGED AMA AND WILL BE TAKEN VIA WC TO THE ER. WILL SEE IF I AM ABLE TO NOTIFY HIS DAUGHTER OF HIS DISMISSAL.
--- NOTE | 2016-11-29 04:10 | NUR ---
UNABLE TO REACH DAUGHTER. STATES CUSTOMER IS NOT ACCEPTING CALLS AT THIS TIME.
--- NOTE | 2016-11-29 14:29 | HP ---
PATIENT: MAKENZIE DESAI MEDICAL RECORD: [id number] ACCOUNT: [id number] LOCATION:[address] : 46 ADMISSION DATE: 11/28/16 HISTORY AND PHYSICAL EXAMINATION REASON FOR ADMISSION: Bilateral leg pain, swelling and redness. HISTORY OF PRESENT ILLNESS: The patient is a 71-year-old male, who is [facility]. He has chronic history of COPD, lymphedema and cellulitis. He has been in the [facility] recently after being in rehab in [place]. He states that he was there for several days, but they did was change dressings on his legs, did not give him any antibiotics. I do not have any confirmatory information from the [facility] at this time. He therefore left AMA from the [facility] as he did again in October of this year prior to [facility] admit because he was not getting "good care." He has extremely sore feet, legs, especially in his right side and he has open wounds. Denies chest pain, shortness of breath or objective fever. PAST MEDICAL HISTORY: Remote DVT with PE, but V/Q scan and venous Dopplers were negative earlier this year at [facility], history of COPD with pneumonia, chronic pain, remote CVA, chronic lymphedema, cellulitis of his lower extremities, nicotine use, depression, GERD, peripheral vascular disease. PAST SURGICAL HISTORY: He has had tympanoplasty in 1993, laminectomy in 1999, tonsillectomy in 1965. ALLERGIES: ANTI-INFLAMMATORIES, PENICILLIN CAUSING ANAPHYLAXIS, KEFLEX, LOVENOX, IODINE AND POLYMYXIN B. He states that he can take Rocephin, but he is QUESTIONABLY ALLERGIC TO VANCOMYCIN. FAMILY HISTORY: Positive for parents with cardiovascular disease. One sibling had cancer. SOCIAL HISTORY: Current everyday smoker. Denies alcohol or recreational drug use. REVIEW OF SYSTEMS: CONSTITUTIONAL: Subjective fever, marked weakness and fatigue. HEENT: No recent visual change or hearing difficulty. RESPIRATORY: He states he has chronic shortness of breath, but no recent cough, sputum production or hemoptysis. CARDIAC: Denies chest pain. GASTROINTESTINAL: No nausea or vomiting. GENITOURINARY: He has nocturia once nightly and dysuria occasionally. ENDOCRINE: Denies polyuria, polydipsia, heat or cold intolerance. NEUROLOGIC: Remote history of stroke. Denies any current significant motor weakness, but has difficulty walking because of his leg swelling and pain in his feet. INTEGUMENT: As above. PSYCHIATRIC: Admits to depressed mood. PHYSICAL EXAMINATION: VITAL SIGNS: Temperature 100 degrees Fahrenheit orally, pulse 106, respirations were 20, blood pressure 124/60 with a sat of 94% on room air. GENERAL: The patient is chronically ill-appearing and obese with a weight of HISTORY AND PHYSICAL [id number] MAKENZIE DESAI 241 pounds. HEENT: He has male pattern balding. Eyes are clear and nonicteric. Oropharynx shows dry mucous membranes. He has a full loco. NECK: No bruits appreciated. CHEST: Distant breath sounds without wheeze or rales. HEART: Tachycardic without murmur. ABDOMEN: Morbidly obese, nontender throughout. GENITOURINARY: Unremarkable. EXTREMITIES: His legs were wrapped in Harmony and he has weeping in the obvious wounds on his legs. His feet are both erythematous, right greater than left, and minimal touch causes pain in his right foot. NEUROLOGICAL: The patient is oriented to person, place, and time. Cranial nerves are grossly intact. No obvious motor deficits were appreciated. LABORATORY DATA: White count 17.6 thousand, H&H of 8.8 and 27.9, platelet count of 609,000 with left shift. Sodium is 128, potassium is 4.9, BUN and creatinine is 49 and 1.5. Lactic acid 1.1, magnesium 2.2. ProBNP is 1269. INR 1.46. Urine is cloudy, 3+ protein, greater than 50 red cells per high power field, 25 white cells, moderate bacteria. Chest x-rays, right basilar airspace disease and some pleural fluid noted. ASSESSMENT: 1. Chronic lymphedema and cellulitis, bilateral lower extremities, right greater than left. 2. Anemia. 3. Hypotension. 4. Urinary tract infection. 5. Acute renal insufficiency. 6. Hyponatremia. 7. Chronic obstructive pulmonary disease. 8. Possible pneumonia. PLAN: Culture blood and urine. We will give a fluid challenge in the ER to help his hypotension currently. The patient says he can take Rocephin, but is not sure about vancomycin. We will start on Rocephin 1 g q.24 hours. Obtain wound and ID consult. Further workup pending clinical course. TRANSINT:[id number] Voice Confirmation ID: [id number] DOCUMENT ID: [id number] SYDNEY HENDRICKSON MD at 1429 CC: [id number] DICTATION DATE: 11/28/161816 PRODUCTION MATERIAL HANDLER: 11/28/161906 DIS IN 11/29/16 [facility] [address] [id number]
== END 2016-11-29 04:06 | disposition left against medical advice (07) | DRG 603 ==
LOC: D.ER 14:12 → D.M2 19:40
PROVIDERS: Nurse Practitioner Family; ADMIT Family Medicine
PROC: 0T9B70Z Drainage of Bladder with Drainage Device, Via Natural or Artificial Opening (ICD-10-PCS; principal; 2016-11-28)
DX: L03.116 Cellulitis of left lower limb (principal); N39.0 Urinary tract infection, site not specified; E87.1 Hypo-osmolality and hyponatremia; L03.115 Cellulitis of right lower limb; D64.9 Anemia, unspecified; N28.9 Disorder of kidney and ureter, unspecified; J44.9 Chronic obstructive pulmonary disease, unspecified; Z79.01 Long term (current) use of anticoagulants; Z86.718 Personal history of other venous thrombosis and embolism; Z86.711 Personal history of pulmonary embolism; Z86.73 Personal history of transient ischemic attack (TIA), and cerebral infarction without residual deficits; K21.9 Gastro-esophageal reflux disease without esophagitis; Z72.0 Tobacco use

== ENCOUNTER 2016-11-29 04:11 | Emergency (ER) | payer MEDICARE ==
[2016-11-28 22:58] VITALS: BMI 34.6
== END 2016-11-29 04:42 | disposition home or self-care (01) ==
LOC: D.ER 04:11
DX: L03.116 Cellulitis of left lower limb (principal); L03.115 Cellulitis of right lower limb; I50.9 Heart failure, unspecified; N18.9 Chronic kidney disease, unspecified

== ENCOUNTER 2016-11-30 00:08 | Inpatient (IN) | payer MEDICARE ==
[2016-11-30 01:28] LABS: BASOPHILS 0.2 % (0-2); HEMATOCRIT 26.8 % (42.0-54.0); HEMOGLOBIN 8.3 g/dL (13.5-17.5); LYMPHOCYTES 12.3 % (15-50); MCH 23.8 pg (26.0-34.0); MCV 76.8 fL (80.0-100.0); MEAN PLATELET VOLUME 8.6 fL (7.4-10.4); MONOCYTES 8.7 % (2-11); NEUTROPHILS 74.8 % (40-80); PLATELET COUNT 550 10x3/uL (130-400); RBC 3.49 10x6/uL (4.20-6.10); RDW 17.1 % (11.5-14.5)
[2016-11-30 01:37] LABS: WBC 12.4 10x3/uL (4.8-10.8)
[2016-11-30 01:40] LABS: ANION GAP 13.2 mmol/L (8-16); CARBON DIOXIDE 22.2 mmol/L (21.0-32.0); CREATININE - SERUM 1.2 mg/dL (0.6-1.3); POTASSIUM - SERUM 4.4 mmol/L (3.5-5.1)
[2016-11-30 05:08] VITALS: BP 130/64; BMI 32.7
--- NOTE | 2016-11-30 07:30 | NUR ---
RESTING IN BED, LEGS BURNING, CALL LIGHT IN REACH, BED LOWEST POSITION, WILL CONTINUE TO MONITOR
[2016-11-30 09:45] VITALS: BP 116/74
--- NOTE | 2016-11-30 10:00 | NUR ---
ALERT IN BED CRYING. C/O PAIN AND BURNING TO BLE. REQUESTING ESTEBAN ORTIZ PRIMARY NURSE. PROVIDED WITH ICE WATER PER REQUEST. WILL NOTIFY ANGEL. SIDE RAILS UP X2. BED IN LOW POSITION. CALL LIGHT IN REACH.
[2016-11-30 12:51] VITALS: BMI 32.7
[2016-11-30 13:04] VITALS: BP 133/44
[2016-11-30 16:32] VITALS: BP 95/66
[2016-12-01] VITALS: BP 127/72
--- NOTE | 2016-12-01 03:58 | NUR ---
RN NOTE: PT RESTING IN SUPINE POSITION WITH EYES CLOSED. NS INFUSING AT 30 ML / HR. CASH PROCESSING SPECIALIST / DILAUDID IN USE FOR PAIN CONTROL. TELEMETRY IN PLACE AND READING SR AT THIS ASSESSMENT. WILL CONTINUE TO MONITOR FOR NEEDS.
[2016-12-01 04:00] VITALS: BP 99/67
[2016-12-01 05:51] LABS: BASOPHILS 0.4 % (0-2); EOSINOPHILS 7.6 % (0-7); HEMATOCRIT 25.4 % (42.0-54.0); HEMOGLOBIN 7.8 g/dL (13.5-17.5); IMMATURE GRANULOCYTES 2.2 % (0-5); LYMPHOCYTES 14.2 % (15-50); MCH 24.1 pg (26.0-34.0); MCHC 30.7 g/dL (31.0-37.0); MCV 78.6 fL (80.0-100.0); MEAN PLATELET VOLUME 8.6 fL (7.4-10.4); MONOCYTES 11.2 % (2-11); NEUTROPHILS 64.4 % (40-80); PLATELET COUNT 504 10x3/uL (130-400); RBC 3.23 10x6/uL (4.20-6.10); RDW 17.3 % (11.5-14.5)
[2016-12-01 05:52] LABS: WBC 7.7 10x3/uL (4.8-10.8)
[2016-12-01 06:24] LABS: ALBUMIN 0.7 g/dL (3.4-5.0); ALKALINE PHOSPHATASE 192 U/L (46-116); ALT (SGPT) 14 U/L (10-68); CALC OSMOLALITY 274 mosm/kg (275-300); CALCIUM 8.3 mg/dL (8.5-10.1); CARBON DIOXIDE 23.2 mmol/L (21.0-32.0); CHLORIDE - SERUM 104 mmol/L (98-107); GLUCOSE 105 mg/dL (74-106); POTASSIUM - SERUM 4.8 mmol/L (3.5-5.1); PROTEIN - SERUM 5.5 g/dL (6.4-8.2); SODIUM 133 mmol/L (136-145); UREA NITROGEN 39 mg/dL (7-18); eGFR NON AFRICAN AMERICAN 78 mL/min (90-120)
--- NOTE | 2016-12-01 09:17 | NUR ---
RATES PAIN A 7, 0.4 MG BOLUS GIVEN, BED LOWEST POSITION, REPOSITIONED IN BED, CALL LIGHT IN REACH, NO DISTRESS NOTED, WILL CONTINUE TO MONITOR
[2016-12-01 09:42] VITALS: BP 137/44
--- NOTE | 2016-12-01 11:27 | NUR ---
AWAKE AND ALERT, CALL LIGHT AND BEDSIDE TABLE IN REACH. DENIES ANY FURTHER NEEDS AT THIS TIME. WILL CONTINUE WITH PLAN OF CARE.
[2016-12-01 11:55] VITALS: BP 135/52
[2016-12-01 15:18] LABS: % SATURATION 10 % (15-55); IRON 15 ug/dl (35-150); TOTAL IRON BIND CAPACITY 138 ug/dl (260-445); UNSAT IRON BIND CAPACITY 123 ug/dl (150-375)
[2016-12-01 15:53] VITALS: BP 120/85
[2016-12-01 20:00] VITALS: BP 136/63
--- NOTE | 2016-12-02 02:06 | NUR ---
PT SLEEPING. RESP EVEN, UNLABORED. NO DISTRESS NOTED. CONTINUE AUTOMATION/CONTROLS MANAGER'S PLAN OF CARE.
--- NOTE | 2016-12-02 03:22 | NUR ---
PATIENT REQUESTED TO GET OUT OF BED TO BEDSIDE COMMODE. WHEN INFORMED THAT I WOULD GET ANOTHER PERSON HE STARTED YELLING AND CURSING. STOCK CLERK SELF SERVICE STORE WAS GOTTEN TO ASSIST WITH THE TRANSFER AND TO WITNESS PATIENT. PATIENT MADE ACUSATIONS THAT I ATTEMPTED TO PULL HIS PIV FROM HIS LEFT AUXILLARY. HE CONTINUED WITH DEGRADING STAFF HE STOOD UP FROM THE SIDE OF THE BED AND TRANSFERED HIMSELF TO THE [facility] WITHOUT DIFFICULTY. HIS LINEN WAS BEING CHANGED HE ORDERED THE STAFF OUT SO HE COULD HAVE A BM. ONCE COMPLETED HE STARTED YELLING EVEN THOUGH HIS CALL LIGHT WAS WITHIN REACH. ONCE THE STOCK CLERK SELF SERVICE STORE AND MYSELF GOT IN THERE HE WAS COMPLAINING THAT IS PIV HAD CAME LOOSE AND THERE WAS A PUDDLE OF BLOOD UNDER HIS FEET FROM HIS WOUNDS OPENING UP. 3 DROPS OF SEROSANGIOUS FLUID NOTED ON THE FLOOR. HE WAS THEN SEMI SUPPORTED GETTING STOOD UP WHERE HE COMPLETED THE TRANSFER BACK TO BED. HE MADE FURTHER ACCUSATIONS THAT I WAS ATTEMPTING TO PULL HIS PIV OUT BY TAKING THE IV POLE AROUND THE BED TO GET HIM OUT ON THE OTHER SIDE EARLIER IN SHIFT. THE PATIENT WAS INFORMED THAT NO ATTEMPTS TO GET HIM OUT OF BED DURING THE SHIFT AND THAT HE HAS BEEN IN BED THROUGH THE WHOLE SHIFT SO FAR. PATIENT REFUSED TO HAVE HIS PIV INSPECTED AND STATED THAT IT WAS GOOD.
[2016-12-02 04:00] VITALS: BP 136/61
[2016-12-02 06:00] LABS: BASOPHILS 0.1 % (0-2); EOSINOPHILS 4.6 % (0-7); HEMATOCRIT 24.3 % (42.0-54.0); IMMATURE GRANULOCYTES 3.2 % (0-5); LYMPHOCYTES 12.1 % (15-50); MCH 23.7 pg (26.0-34.0); MCHC 30.5 g/dL (31.0-37.0); MCV 77.9 fL (80.0-100.0); MEAN PLATELET VOLUME 8.5 fL (7.4-10.4); MONOCYTES 9.3 % (2-11); NEUTROPHILS 70.7 % (40-80); PLATELET COUNT 478 10x3/uL (130-400); RBC 3.12 10x6/uL (4.20-6.10); RDW 17.5 % (11.5-14.5); WBC 9.1 10x3/uL (4.8-10.8)
[2016-12-02 06:12] LABS: HEMOGLOBIN 7.4 g/dL (13.5-17.5)
[2016-12-02 06:17] LABS: ALBUMIN 0.7 g/dL (3.4-5.0); ALKALINE PHOSPHATASE 188 U/L (46-116); ALT (SGPT) 13 U/L (10-68); CALC OSMOLALITY 273 mosm/kg (275-300); CALCIUM 8.1 mg/dL (8.5-10.1); CARBON DIOXIDE 24.5 mmol/L (21.0-32.0); CHLORIDE - SERUM 106 mmol/L (98-107); CREATININE - SERUM 0.8 mg/dL (0.6-1.3); GLUCOSE 99 mg/dL (74-106); POTASSIUM - SERUM 4.9 mmol/L (3.5-5.1); PROTEIN - SERUM 5.5 g/dL (6.4-8.2); SODIUM 133 mmol/L (136-145); UREA NITROGEN 36 mg/dL (7-18); eGFR NON AFRICAN AMERICAN > 90 mL/min (90-120)
--- NOTE | 2016-12-02 08:00 | NUR ---
ASSESSMENT COMPLETE. IV TO L AXILLA PATENT. NS INFUSING AT KVO VIA PUMP. IC DESIGNER CUSTOM DILAUDID 0.2-10-4 IN USE FOR PAIN CONTROL. SALES FORCE DEVELOPER SHOWING SR 75 PER TECH. RODGERS PATENT DRAINING YELLOW URINE. DENIES ANY NEEDS AT PRESENT.
[2016-12-02 12:28] VITALS: BP 140/54
--- NOTE | 2016-12-02 12:35 | NUR ---
1ST UNIT PRBC INFUSION STARTED. VSS.
--- NOTE | 2016-12-02 12:45 | NUR ---
REFUSING TO LEAVE BLOOD PRESSURE CUFF ON TO OBTAIN BLOOD VITALS.
[2016-12-02 16:38] VITALS: BP 127/58
--- NOTE | 2016-12-02 16:44 | NUR ---
Rehab Prescreening Consult recieved and the chart has been reviewed. To qualify for acute inpatient rehab a patient must have the need for at least 2 disciplines. PT has evaluated the patient but documented he had no skilled needs at this time. Rehab will visit the patient in the morning and assess to determine if he has the need for the two disciplines required by Medicare to qualify for IRF. Lorin Chaudhary RN Clinical Liaison, Rehab
--- NOTE | 2016-12-02 20:00 | NUR ---
ASSESSMENT PER FLOWSHEET. BLOOD HAS COMPLETED NO REACTION NOTED. NS AT KVO. IV PATENT LEFT ARMPIT OF NS KVO. MONITORING LAST OF VITAL SIGNS. RODGERS TO BEDSIDE DRAINAGE WITH YELLOW URINE. SCABS AND SORES TO BOTH LOWER LEGS.
--- NOTE | 2016-12-02 21:30 | NUR ---
C/O PAIN IN LEGS RATES PAIN LEVEL #6-8. DILAUDID BOLUS OF 0.4MG GIVEN PER SALON SUPERVISOR MACHINE. SALON SUPERVISOR OF DILAUDID IN USE WITH SETTINGS AT 0.2MG Q10MIN W/4MG Q4H L/O.
--- NOTE | 2016-12-02 23:00 | NUR ---
EYES CLOSED RESPIRATIONS WITH EASE AND UNLABORED.
--- NOTE | 2016-12-03 00:30 | NUR ---
AWAKE REQUESTING A BOLUS. DILAUDID 0.4MG IV GIVEN PER OFFSET PROOF PRESS OPERATOR MACHINE.
--- NOTE | 2016-12-03 01:30 | NUR ---
EYES CLOSED RESPIRATIONS WITH EASE AND UNLABORED.
--- NOTE | 2016-12-03 03:40 | NUR ---
C/O PAIN IN LEGS RATES PAIN LEVEL#6. REQUESTING A BOLUS. DILAUDID 0.4MG IV GIVEN PER FIELD SAMPLING TECHNICIAN MACHINE PER Aly ANDERSON LPN.
[2016-12-03 04:00] VITALS: BP 126/61
--- NOTE | 2016-12-03 04:30 | NUR ---
EYES CLOSED RESPIRATIONS WITH EASE AND UNLABORED.
--- NOTE | 2016-12-03 06:00 | NUR ---
MEDS GIVEN PER MAR.
--- NOTE | 2016-12-03 08:30 | NUR ---
ASSESSMENT COMPLETE. IV TO L UNDERARM PATENT. MOTHERS HELPER DILAUDID 0.2-10-4 IN USE FOR PAIN CONTROL. SL TO R CHEST. TUCKING MACHINE OPERATOR SHOWING SR WITH PAC'S 98 PER TECH. RODGERS PATENT DRAINING YELLOW URINE. MULTIPLE SCABBED AREAS NOTED TO BLE.
[2016-12-03 08:50] VITALS: BP 122/61
[2016-12-03 11:35] LABS: BASOPHILS 0.1 % (0-2); EOSINOPHILS 4.9 % (0-7); IMMATURE GRANULOCYTES 2.6 % (0-5); LYMPHOCYTES 11.4 % (15-50); MCH 24.5 pg (26.0-34.0); MCV 78.9 fL (80.0-100.0); MEAN PLATELET VOLUME 8.7 fL (7.4-10.4); MONOCYTES 8.1 % (2-11); NEUTROPHILS 72.9 % (40-80); PLATELET COUNT 464 10x3/uL (130-400); RDW 17.3 % (11.5-14.5); WBC 9.8 10x3/uL (4.8-10.8)
[2016-12-03 11:45] LABS: HEMOGLOBIN 9.3 g/dL (13.5-17.5)
[2016-12-03 11:55] LABS: ALBUMIN 0.8 g/dL (3.4-5.0); ALKALINE PHOSPHATASE 211 U/L (46-116); CALC OSMOLALITY 283 mosm/kg (275-300); CALCIUM 7.8 mg/dL (8.5-10.1); CARBON DIOXIDE 24.6 mmol/L (21.0-32.0); CHLORIDE - SERUM 108 mmol/L (98-107); CREATININE - SERUM 0.8 mg/dL (0.6-1.3); GLUCOSE 123 mg/dL (74-106); POTASSIUM - SERUM 4.3 mmol/L (3.5-5.1); PROTEIN - SERUM 5.7 g/dL (6.4-8.2); SODIUM 139 mmol/L (136-145); UREA NITROGEN 27 mg/dL (7-18); eGFR NON AFRICAN AMERICAN > 90 mL/min (90-120)
[2016-12-03 11:56] LABS: ALT (SGPT) 17 U/L (10-68); BILIRUBIN - TOTAL 0.05 mg/dL (0.2-1.3)
--- NOTE | 2016-12-03 12:00 | NUR ---
NO CHANGES NOTED AT THIS TIME.
[2016-12-03 12:03] VITALS: BP 133/65
--- NOTE | 2016-12-03 12:11 | NUR ---
NUTRITION F/U CHART REVIEWED, PT VISIT.TOLERATING REG DIET WITH GOOD PO INTAKE. WILL CONTINUE TO PROVIDE DIET, HONOR FOOD PREFERENCES. RD FOLLOWING
--- NOTE | 2016-12-03 14:13 | NUR ---
Rehab Note- The patient has been in [facility] acute rehab and is currently at his PLOF when discharging from acute rehab. The patient was noncompliant with therapy during his stay at [facility] acute rehab. Would recommend alf placement. Thank you for this referral! Philomena Newman RN Clinical Liaison, [facility] Rehab
[2016-12-03 16:21] VITALS: BP 141/70
--- NOTE | 2016-12-03 18:00 | NUR ---
NO CHANGES NOTED AT PRESENT.
[2016-12-03 19:00] VITALS: BP 147/69
--- NOTE | 2016-12-03 20:41 | NUR ---
AWAKE AND ALERT. ORIENTED X3. C/O INTENSE PAIN TO BILATERAL LOWER EXTREMETIES AT THIS TIME. IV IS NON FUNCTIONAL FOR NOW. SPOKE WITH CECILIA ALEJANDRE APN FOR DR. SWEET. REFUSED INCREASE IN PAIN MEDS. WILL ATTEMPT IV AGAIN. LUNGS ARE CLEAR BILATERALLY, NO COUGH NOTED. SKIN IS INTACT WITHOUT REDNESS EXCEPT TO BILATERAL LOWER EXTREMETIES WHICH HAVE MULTIPLE AREAS OF OPEN OOZING/BLEEDING ULCERS. THIS IS NOT NEW. WILL MONITOR.
--- NOTE | 2016-12-03 22:01 | NUR ---
IV SITED TO LEFT CHEST WALL WITH 22G AFTER ONE ATTEMPT.
[2016-12-04] VITALS: BP 147/75
--- NOTE | 2016-12-04 00:57 | NUR ---
PT REQUESTING BOLUS DOSE OF DILAUDID AT THIS TIME WILL GIVE PER ORDER.
[2016-12-04 04:00] VITALS: BP 141/68
[2016-12-04 06:24] LABS: BASOPHILS 0.2 % (0-2); EOSINOPHILS 5.6 % (0-7); HEMATOCRIT 28.9 % (42.0-54.0); IMMATURE GRANULOCYTES 3.1 % (0-5); LYMPHOCYTES 12.8 % (15-50); MCH 24.6 pg (26.0-34.0); MCHC 31.1 g/dL (31.0-37.0); MEAN PLATELET VOLUME 8.6 fL (7.4-10.4); MONOCYTES 10.6 % (2-11); NEUTROPHILS 67.7 % (40-80); PLATELET COUNT 444 10x3/uL (130-400); RBC 3.66 10x6/uL (4.20-6.10); RDW 17.5 % (11.5-14.5); WBC 9.9 10x3/uL (4.8-10.8)
[2016-12-04 07:16] LABS: ALBUMIN 0.7 g/dL (3.4-5.0); ALKALINE PHOSPHATASE 191 U/L (46-116); ALT (SGPT) 16 U/L (10-68); CALC OSMOLALITY 277 mosm/kg (275-300); CALCIUM 7.8 mg/dL (8.5-10.1); CARBON DIOXIDE 24.8 mmol/L (21.0-32.0); CHLORIDE - SERUM 108 mmol/L (98-107); CREATININE - SERUM 0.7 mg/dL (0.6-1.3); GLUCOSE 122 mg/dL (74-106); POTASSIUM - SERUM 4.7 mmol/L (3.5-5.1); PROTEIN - SERUM 5.3 g/dL (6.4-8.2); SODIUM 137 mmol/L (136-145); UREA NITROGEN 22 mg/dL (7-18); eGFR NON AFRICAN AMERICAN > 90 mL/min (90-120)
--- NOTE | 2016-12-04 07:30 | NUR ---
RECIEVED PT DURING WALKING ROUNDS. PT ASLEEP WITH NO VISABLE SIGN OF DISCOMFORT. WOKE PT UP FOR ASSESSMENT AND PT REFUSED TO TURN FOR ASSESSMENT. ASSESSMENT DONE PER FLOWSHEET. BED IN LOW POSITION AND CALL LIGHT WITHIN REACH. WILL CONTINUE TO MONITOR.
[2016-12-04 08:19] VITALS: BP 109/76
--- NOTE | 2016-12-04 11:00 | NUR ---
DILAUDID DE ICER BOLUS DOSE GIVEN AT THIS TIME FOR PAIN OF A 10 ON A SCALE OF 1-10.
[2016-12-04 12:26] VITALS: BP 151/70
--- NOTE | 2016-12-04 15:31 | NUR ---
Patient Name: MAKENZIE DESAI Admission Status: ER Accout number: [id number] Admission Date: 11-30-2016 : 1945 Admission Diagnosis:CELLULITIS OF LEFT LOWER LIMB Attending: MAURI DAUGHERTY Current LOS: 4 Anticipated DC Date: Planned Disposition: Jail Facility Primary Insurance: MEDICARE A & B Discharge Planning Comments: CM met with patient to ass discharge planning needs. Patient was not real happy to speak with me. Patient stated that he could do his own discharge planning & he did not need my help. He was a resident at [facility], but said eh will not go back there. He see the [facility]. Patient called me back to the room and asked me to call Kacie at [facility]. Cm called Kacie and she stated that the patient signed himself out AMA at [facility] to go to the [facility] [place]. Patient should be accepted to [facility] and she has been in contact will them. CM will follow up with Roberto Carlos méndez. CM will continue to help with discharge planning needs.. PCP: TREY Weaver Zeke (daughter) [phone] Kacie ([facility]) [phone] Track Car Operator: Lashonda Stone * Is the patient Alert and Oriented? Yes 0 * PCP [facility] * Pharmacy [facility] 0 * Preadmission Environment Jail Facility 0 * Facility Name [facility] 0 * ADLs Partial Dependent 0 * Partial ADLs (Assistance needed) Ambulation Dressing Medication Management Transfers 0 * Equipment Wheelchair 0 * List name and contact numbers for known caregivers / representatives who currently or will assist patient after discharge: ZEKE (DAUGHTER) [phone] 0 * Please name any agencies selected above. [facility] (KACIE) [phone] 0 * Additional services required to return to the preadmission environment? Yes 0 * Can the patient safely return to the preadmission environment? Yes 0 * Has this patient been hospitalized within the prior 30 days at any hospital? Yes 0 Grand Total: 0
--- NOTE | 2016-12-04 16:50 | NUR ---
DILAUDID WARRANT SERVER BOLUS DOSE GIVEN AT THIS TIME FOR PAIN OF A 9 ON A SCALE OF 1-10. BED IN LOW POSITION AND CALL LIGHT WITHIN REACH. WILL CONTINUE TO MONITOR.
--- NOTE | 2016-12-04 17:45 | NUR ---
PT REFUSED VANC TROUGH AT 1445, KEZIA NEWELL SPOKE WITH PT AND PT AGREED TO LAB DRAW, LAB DRAWN AT APPROX 1645. SPOKE WITH PHARMACY TO RE-TIME VANC ADMINISTRATION.
[2016-12-04 19:00] VITALS: BP 128/83
[2016-12-05 04:00] VITALS: BP 104/71
[2016-12-05 05:57] LABS: BASOPHILS 0.2 % (0-2); EOSINOPHILS 7.1 % (0-7); HEMATOCRIT 30.3 % (42.0-54.0); HEMOGLOBIN 9.3 g/dL (13.5-17.5); IMMATURE GRANULOCYTES 3.1 % (0-5); LYMPHOCYTES 14.8 % (15-50); MCH 24.4 pg (26.0-34.0); MCHC 30.7 g/dL (31.0-37.0); MCV 79.5 fL (80.0-100.0); MEAN PLATELET VOLUME 8.6 fL (7.4-10.4); MONOCYTES 10.4 % (2-11); NEUTROPHILS 64.4 % (40-80); PLATELET COUNT 443 10x3/uL (130-400); RBC 3.81 10x6/uL (4.20-6.10); RDW 17.9 % (11.5-14.5); WBC 8.4 10x3/uL (4.8-10.8)
[2016-12-05 06:22] LABS: ALBUMIN 0.7 g/dL (3.4-5.0); ALKALINE PHOSPHATASE 197 U/L (46-116); ALT (SGPT) 20 U/L (10-68); CALC OSMOLALITY 280 mosm/kg (275-300); CALCIUM 8.3 mg/dL (8.5-10.1); CARBON DIOXIDE 25.1 mmol/L (21.0-32.0); CHLORIDE - SERUM 109 mmol/L (98-107); CREATININE - SERUM 0.7 mg/dL (0.6-1.3); GLUCOSE 94 mg/dL (74-106); POTASSIUM - SERUM 4.3 mmol/L (3.5-5.1); PROTEIN - SERUM 5.5 g/dL (6.4-8.2); SODIUM 139 mmol/L (136-145); UREA NITROGEN 22 mg/dL (7-18); eGFR NON AFRICAN AMERICAN > 90 mL/min (90-120)
--- NOTE | 2016-12-05 07:30 | NUR ---
RECIEVED PT DURING WALKING ROUNDS, PT RESTING IN BED WITH COMPLAINTS OF PAIN OF A 8 ON A SCALE OF 1-10. HEAVY FORGER HELPER IN USE. ASSESSMENT DONE PER FLOWSHEET. BED IN LOW POSITION AND CALL LIGHT WITHIN REACH. WILL CONTINUE TO MONITOR.
--- NOTE | 2016-12-05 09:00 | NUR ---
PASSENGER BOOKING CLERK BOLUS DOSE GIVEN AT THIS TIME PER ORDER FOR PAIN OF A 10 ON A SCALE OF 1-10. BED IN LOW POSITION AND CALL LIGHT WITHIN REACH. WILL CONTINUE TO MONITOR.
[2016-12-05 09:46] VITALS: BP 143/69
--- NOTE | 2016-12-05 12:05 | NUR ---
RAISIN WASHER BOLUS DOSE GIVEN AT THIS TIME PER ORDER FOR PAIN OF A 9 ON A SCALE OF 1-10. BED IN LOW POSITION AND CALL LIGHT WITHIN REACH. WILL CONTINUE TO MONITOR.
--- NOTE | 2016-12-05 12:13 | NUR ---
PRN BOLUS DOSE ADMINISTERED AT THIS TIME FOR PAIN.
[2016-12-05 12:33] VITALS: BP 145/73
--- NOTE | 2016-12-05 12:53 | NUR ---
REFERRAL SENT TO [facility]
--- NOTE | 2016-12-05 15:00 | NUR ---
DIRK ([phone]) FROM [facility] STATED THAT RIGHT NOW THE PATIENT LOOKED GOOD TO THEM FOR ACCEPTANCE WHEN DISCHARGED
--- NOTE | 2016-12-05 15:40 | NUR ---
DESKIDDING MACHINE OPERATOR BOLUS DOSE GIVEN AT THIS TIME PER ORDER.
[2016-12-05 16:13] VITALS: BP 140/73
[2016-12-05 17:59] VITALS: BP 153/74
[2016-12-05 20:04] LABS: APTT 39.3 SECONDS (22.8-39.4); INR 1.93 (0.85-1.17)
[2016-12-06 04:59] LABS: BASOPHILS 0.2 % (0-2); EOSINOPHILS 6.6 % (0-7); HEMATOCRIT 29.7 % (42.0-54.0); HEMOGLOBIN 9.1 g/dL (13.5-17.5); IMMATURE GRANULOCYTES 3.9 % (0-5); MCH 24.5 pg (26.0-34.0); MCHC 30.6 g/dL (31.0-37.0); MCV 79.8 fL (80.0-100.0); MEAN PLATELET VOLUME 8.9 fL (7.4-10.4); MONOCYTES 13.6 % (2-11); NEUTROPHILS 60.7 % (40-80); PLATELET COUNT 487 10x3/uL (130-400); RBC 3.72 10x6/uL (4.20-6.10); RDW 18.1 % (11.5-14.5); WBC 8.2 10x3/uL (4.8-10.8)
[2016-12-06 05:30] LABS: ALBUMIN 0.8 g/dL (3.4-5.0); ALKALINE PHOSPHATASE 194 U/L (46-116); ALT (SGPT) 22 U/L (10-68); CALC OSMOLALITY 280 mosm/kg (275-300); CALCIUM 7.7 mg/dL (8.5-10.1); CARBON DIOXIDE 25.1 mmol/L (21.0-32.0); CHLORIDE - SERUM 109 mmol/L (98-107); GLUCOSE 95 mg/dL (74-106); POTASSIUM - SERUM 4.5 mmol/L (3.5-5.1); PROTEIN - SERUM 5.5 g/dL (6.4-8.2); SODIUM 139 mmol/L (136-145); UREA NITROGEN 21 mg/dL (7-18)
[2016-12-06 05:33] LABS: BILIRUBIN - TOTAL 0.09 mg/dL (0.2-1.3); CREATININE - SERUM 0.9 mg/dL (0.6-1.3); eGFR NON AFRICAN AMERICAN 89 mL/min (90-120)
--- NOTE | 2016-12-06 08:11 | NUR ---
AWAKE AND ALERT. ORIENTED X3. NO C/O AT THIS TIME. REPORTS SOME PAIN RELIEF WITH BOLUS. LUNGS ARE CLEAR BILATERALLY, NO COUGH NOTED. SKIN IS INTACT WITHOUT REDNESS EXCEPT WOUNDS TO BILATERAL LOWER EXTREMETIES OF WHICH THERE ARE SEVERAL AREAS SCABBED OVER. GENERALIZED EDEMA NOTED TO ENTIRE BODY. SCROTUM PLACED UP ON CLOTH TO HELP. IV TO LEFT SHOULDER CHEST AREA PATENT WITHOUT REDNESS AT INSERTION SITE. RODGERS PATENT WITH CLEAR YELLOW URINE. DENIES NEEDS.
[2016-12-06 12:07] VITALS: BP 135/66
--- NOTE | 2016-12-06 12:15 | NUR ---
LUNCH SERVED IN ROOM. FEEDS SELF. DENIES NEEDS.
--- NOTE | 2016-12-06 14:15 | NUR ---
RESTING QUIETLY IN BED WITH EYES CLOSED. NO NEEDS NOTED.
[2016-12-06 15:35] VITALS: BP 116/61
--- NOTE | 2016-12-06 16:49 | NUR ---
ATTEMPTED TO CALL [facility] AT [facility] FOR DISCHARGE WITHOUT ANY RESPONSE. CM WILL CONTINUE TO FOLLOW AND ASSIST WITH DISCHARGE PLANNING NEEDS . CM CALLED 3 TIMES AND LEFT MESSAGES FOR THEM TO CALL BACK
--- NOTE | 2016-12-06 19:02 | NUR ---
ATE ALL OF SUPPER. DENIES NEEDS.
[2016-12-07 00:08] VITALS: BP 148/62
[2016-12-07 04:00] VITALS: BP 145/69
[2016-12-07 05:28] LABS: BASOPHILS 0.3 % (0-2); EOSINOPHILS 5.5 % (0-7); HEMOGLOBIN 9.1 g/dL (13.5-17.5); IMMATURE GRANULOCYTES 2.3 % (0-5); LYMPHOCYTES 13.2 % (15-50); MCH 24.4 pg (26.0-34.0); MCHC 30.3 g/dL (31.0-37.0); MCV 80.4 fL (80.0-100.0); MEAN PLATELET VOLUME 8.8 fL (7.4-10.4); MONOCYTES 11.3 % (2-11); NEUTROPHILS 67.4 % (40-80); PLATELET COUNT 462 10x3/uL (130-400); RBC 3.73 10x6/uL (4.20-6.10); RDW 18.1 % (11.5-14.5); WBC 7.9 10x3/uL (4.8-10.8)
[2016-12-07 06:05] LABS: ALBUMIN 0.8 g/dL (3.4-5.0); ALKALINE PHOSPHATASE 194 U/L (46-116); ALT (SGPT) 21 U/L (10-68); BILIRUBIN - TOTAL 0.07 mg/dL (0.2-1.3); CALC OSMOLALITY 274 mosm/kg (275-300); CALCIUM 7.9 mg/dL (8.5-10.1); CHLORIDE - SERUM 107 mmol/L (98-107); CREATININE - SERUM 0.8 mg/dL (0.6-1.3); GLUCOSE 105 mg/dL (74-106); PROTEIN - SERUM 5.7 g/dL (6.4-8.2); SODIUM 136 mmol/L (136-145); UREA NITROGEN 22 mg/dL (7-18); eGFR NON AFRICAN AMERICAN > 90 mL/min (90-120)
--- NOTE | 2016-12-07 08:00 | NUR ---
AWAKE AND ALERT. ORIENTED X3. NO C/O AT THIS TIME. LUNGS ARE CLEAR BILATERALLY, NO COUGH NOTED. SKIN IS INTACT EXCEPT WOUNDS TO BILATERAL LOWER EXTREMETIES, WHICH HAVE LEAKED ALL OVER THE BED. SKIN CARE PER STAFF. LINENS CHANGED. GENERALIZED EDEMA NOTED TO ENTIRE BODY. THERE ARE DEEP BED WRINKLES AND BUMPS ON BOTTOM. WILL GET FIRST STEP TO PREVENT FURTHER SKIN DAMAGE IF OK WITH MD. IV TO LEFT CHEST IS PATENT WITHOUT REDNESS AT INSERTION SITE. RODGERS PATENT WITH CLEAR YELLOW URINE.
[2016-12-07 08:03] VITALS: BP 115/74
--- NOTE | 2016-12-07 08:13 | NUR ---
AWAKE AND ALERT. ORIENTED X3. NO C/O AT THIS TIME. SKIN CARE AND LINENS CHANGED PER STAFF. LUNGS ARE CLEAR BILATERALLY, NO COUGH NOTED. SKIN IS INTACT BUT GENERALIZED EDEMA NOTED AND REDNESS TO BUTTOCKS. REPOSITIONED IN BED FOR COMFORT. IV TO LEFT CHEST IS PATENT WITHOUT REDNESS AT INSERTION SITE. RODGERS PATENT WITH CLEAR YELLOW URINE. BREAKFAST SERVED IN ROOM.
--- NOTE | 2016-12-07 09:00 | NUR ---
ATE ALMOST ALL OF BREAKFAST. DENIES NEEDS.
--- NOTE | 2016-12-07 11:00 | NUR ---
REQUESTED LEGS BE WRAPPED SO HE CAN GET UP. THIS WAS DONE. DAUGHTER HERE TO HELP PUSH HIM AROUND IN WC.
--- NOTE | 2016-12-07 11:52 | NUR ---
FIRST STEP OVERLAY PLACED ON BED.
--- NOTE | 2016-12-07 12:30 | NUR ---
ATE ALMOST ALL OF LUNCH. DENIES NEEDS.
--- NOTE | 2016-12-07 13:30 | NUR ---
ASSISTED TO [facility]. HAD LARGE SOFT FORMED STOOL. SKIN CARE PER STAFF.
[2016-12-07 16:16] VITALS: BP 154/44
--- NOTE | 2016-12-07 18:31 | NUR ---
ATE ALMOST ALL OF SUPPER. REQUESTED AND GIVEN DILAUDID BOLUS FOR C/O PAIN LEVEL 8. WILL MONITOR. NO CHANGES NOTED.
[2016-12-07 18:36] VITALS: BP 128/61
--- NOTE | 2016-12-07 22:15 | NUR ---
RESPONDED TO PT'S CALL LIGHT. PT REQUESTED NORCO WITH HIS NIGHT MEDS. I INFORMED ESTEBAN BERGERON OF THE PT'S REQUEST. PATIENT DENIES OTHER NEEDS AT THIS TIME. BED IN LOWEST POSITION AND CALL LIGHT WITHIN REACH. ENCOURAGED THE PT TO CALL IF HE HAS NEEDS.
[2016-12-08] VITALS: BP 136/72
[2016-12-08 04:00] VITALS: BP 135/67
[2016-12-08 05:02] LABS: BASOPHILS 0.4 % (0-2); EOSINOPHILS 6.2 % (0-7); HEMATOCRIT 29.6 % (42.0-54.0); HEMOGLOBIN 8.9 g/dL (13.5-17.5); IMMATURE GRANULOCYTES 2.1 % (0-5); LYMPHOCYTES 15.3 % (15-50); MCH 24.2 pg (26.0-34.0); MCHC 30.1 g/dL (31.0-37.0); MCV 80.4 fL (80.0-100.0); MEAN PLATELET VOLUME 8.5 fL (7.4-10.4); MONOCYTES 12.9 % (2-11); NEUTROPHILS 63.1 % (40-80); PLATELET COUNT 422 10x3/uL (130-400); RBC 3.68 10x6/uL (4.20-6.10); WBC 7.5 10x3/uL (4.8-10.8)
[2016-12-08 05:27] LABS: ALBUMIN 0.8 g/dL (3.4-5.0); ALKALINE PHOSPHATASE 184 U/L (46-116); ALT (SGPT) 18 U/L (10-68); CALC OSMOLALITY 276 mosm/kg (275-300); CALCIUM 8.1 mg/dL (8.5-10.1); CARBON DIOXIDE 22.6 mmol/L (21.0-32.0); CHLORIDE - SERUM 109 mmol/L (98-107); CREATININE - SERUM 0.7 mg/dL (0.6-1.3); GLUCOSE 114 mg/dL (74-106); POTASSIUM - SERUM 5.2 mmol/L (3.5-5.1); PROTEIN - SERUM 5.4 g/dL (6.4-8.2); SODIUM 137 mmol/L (136-145); UREA NITROGEN 19 mg/dL (7-18); eGFR NON AFRICAN AMERICAN > 90 mL/min (90-120)
--- NOTE | 2016-12-08 07:30 | NUR ---
AWAKE AND ALERT. ORIENTED X3. NO C/O AT THIS TIME. LUNGS ARE CLEAR BILATERALLY, NO COUGH NOTED. SKIN IS INTACT WITHOUT REDNESS EXCEPT WOUNDS TO BILATERAL LOWER EXTREMETIES WHICH HAVE SCABBED OVER BUT OOZE CLEAR FLUIDS. ALSO GENERALIZED EDEMA NOTED TO ENTIRE BODY WITH FLUID LEAKAGE NOTED. IV TO LEFT SUPCLAVIAN IS PATENT WITHOUT REDNESS AT INSERTION SITE. RODGERS PATENT WITH CLEAR YELLOW URINE. DENIES NEEDS.
[2016-12-08 08:35] VITALS: BP 118/56
--- NOTE | 2016-12-08 10:00 | NUR ---
RESTING QUIETLY WTIH EYES CLOSED.
--- NOTE | 2016-12-08 12:15 | NUR ---
LUNCH SERVED IN ROOM. FEEDS SELF. DENIES NEEDS. REQUESTED AND GIVNE BOLUS ON ASSEMBLY INSTRUCTIONS WRITER FOR INCREASED PAIN LEVEL 7. WILL MONITOR.
[2016-12-08 12:51] VITALS: BP 140/60
--- NOTE | 2016-12-08 14:15 | NUR ---
LEGS WRAPPEP PER PATIENT REQUEST. UP TO WC PER SELF. FAMILY IN ROOMM.
--- NOTE | 2016-12-08 15:05 | NUR ---
ASSISTED TO B[facility]. HAD LARGE FORMED STOOL. SKIN CARE PER STAFF. POSITIONED IN BED FOR COMFORT AFTERWARD. WOUND CARE TO BILATERAL LOWER EXTREMETIES.
[2016-12-08 16:06] VITALS: BP 153/60
--- NOTE | 2016-12-08 19:15 | NUR ---
RECEIVED CARE FROM DAY NURSE. REPORTS NO CHANGES. PT IN BED IN HIGH FOWLERS POSITION. REPORTS NO NEEDS AT THIS TIME. CALL LIGHT AT SIDE. IV INFUSING.
[2016-12-08 20:00] VITALS: BP 126/48
--- NOTE | 2016-12-09 02:00 | NUR ---
PT RESTING IN BED WITH NO DISTRESS. RESPIRATIONS EVEN AND UNLABORED. SIDE RAILS X 2. BED LOW. CALL LIGHT IN REACH.
--- NOTE | 2016-12-09 03:03 | NUR ---
IN BED IN HIGH FOWLERS POSTION. RESTING WITH EYES CLOSED. RESP EVEN AND UNLABORED. CALL LIGHT AT SIDE. IV INFUSING PER ORDER.
[2016-12-09 04:00] VITALS: BP 132/52
--- NOTE | 2016-12-09 04:31 | NUR ---
REFUSED AM LABS
[2016-12-09 06:40] LABS: BASOPHILS 0.5 % (0-2); EOSINOPHILS 6.1 % (0-7); HEMATOCRIT 29.2 % (42.0-54.0); HEMOGLOBIN 8.8 g/dL (13.5-17.5); IMMATURE GRANULOCYTES 1.6 % (0-5); LYMPHOCYTES 14.6 % (15-50); MCH 24.2 pg (26.0-34.0); MCHC 30.1 g/dL (31.0-37.0); MCV 80.4 fL (80.0-100.0); MEAN PLATELET VOLUME 8.5 fL (7.4-10.4); MONOCYTES 12.9 % (2-11); NEUTROPHILS 64.3 % (40-80); PLATELET COUNT 407 10x3/uL (130-400); RBC 3.63 10x6/uL (4.20-6.10); RDW 18.4 % (11.5-14.5); WBC 7.5 10x3/uL (4.8-10.8)
[2016-12-09 07:15] LABS: ALBUMIN 0.9 g/dL (3.4-5.0); ALKALINE PHOSPHATASE 168 U/L (46-116); ALT (SGPT) 19 U/L (10-68); CALC OSMOLALITY 280 mosm/kg (275-300); CALCIUM 8.1 mg/dL (8.5-10.1); CARBON DIOXIDE 26.3 mmol/L (21.0-32.0); CHLORIDE - SERUM 109 mmol/L (98-107); CREATININE - SERUM 0.8 mg/dL (0.6-1.3); GLUCOSE 101 mg/dL (74-106); PROTEIN - SERUM 5.6 g/dL (6.4-8.2); SODIUM 140 mmol/L (136-145); UREA NITROGEN 17 mg/dL (7-18); eGFR NON AFRICAN AMERICAN > 90 mL/min (90-120)
--- NOTE | 2016-12-09 07:30 | NUR ---
RECIEVED PT DURING WALKING ROUNDS, PT RESTING IN BED WITH NO VISABLE SIGNS OF PAIN OR DISCOMFORT, CLIENT DEVELOPMENT CONSULTANT IN USE. ASSESSMENT DONE PER FLOWSHEET. PT REFUSED TO TURN. BED IN LOW POSITION AND CALL LIGHT WITHIN REACH. WILL CONTINUE TO MONITOR.
--- NOTE | 2016-12-09 10:10 | NUR ---
DELI CUTTER SLICER BOLUS GIVEN AT THIS TIME PER ORDER. BED IN LOW POSITION AND CALL LIGHT WITHIN REACH. WILL CONTINUE TO MONITOR.
[2016-12-09] MEDS ORDERED: LYRICA25 MG PO (10:32)
[2016-12-09] MEDS ORDERED: ELIQUIS5 MG PO ×2 (10:32)
[2016-12-09] MEDS ORDERED: HYDROCODONE-APA1 TAB PO (10:32)
[2016-12-09] MEDS ORDERED: FLORAJEN3 CAPS460 MG PO (10:33)
[2016-12-09] MEDS ORDERED: MIRALAX17 GM PO (10:33)
[2016-12-09] MEDS ORDERED: COLACE100 MG PO (10:33)
--- NOTE | 2016-12-09 11:30 | NUR ---
PT REFUSES TO HAVE DOT ETCHER DISCONTINUED AT THIS TIME, REQUESTED TO SPEAK WITH PHIL BEFORE ANYTHING IS DONE. SPOEK WITH DR. BRITO, WILL CONTINUE PLAN OF CARE.
[2016-12-09 12:56] VITALS: BP 135/70
--- NOTE | 2016-12-09 15:28 | NUR ---
PT REFUSED BREATHING TX RESPIRATORY VITALS WITHIN NORMAL PARAMETERS
[2016-12-09 16:53] VITALS: BP 165/72
[2016-12-09 20:00] VITALS: BP 151/62
--- NOTE | 2016-12-10 03:46 | NUR ---
2000)REC'D. CALLED PAD HAND ADOLFO GONZALEZ RN 'STATES NURSES TOOK AWAY MY PAIN PUMP. AND WON'T GIVE IT BACK. EXPLAINED DISCONTINUED PAIN PUMP AND PUT YOU ON PAIN PILL IN ORDER TO GET YOU READY TO GO HOME.VERY ANGRY. STATES NOT GOING TO [facility] FOR REHAB.SWELLING AND REDNESS LESS IN LOWER EXT X2.BUT STILL SCALY. DRY FLAKY WILL CONTINUE TO MONITOR FOR ANY CHGES. AND FOLLOW CURRNT PLAN OF CARE
[2016-12-10 04:00] VITALS: BP 152/79
--- NOTE | 2016-12-10 07:30 | NUR ---
RECIEVED PT DURING WALKING ROUNDS, PT IN BED ASLEEP WITH NO VISABLE SIGNS OF PAIN. ASSESSMENT DONE PER FLOWSHEET. BED IN LOW POSITION AND CALL LIGHT WITHIN REACH. WILL CONTINUE TO MONTIOR.
[2016-12-10 08:25] VITALS: BP 147/49
--- NOTE | 2016-12-10 09:38 | NUR ---
AT APPROX 0900 PT ASKED FOR "PAIN SHOT" INFORMED PT THAT IT WAS NOT TIME FOR PAIN MEDICATION AND THAT IT WOULD BE ADMINISTERED AT THE AVAILABLE TIME. PT BEGAN TO CUSS AND SAY "YALL ARE PUSHING MY TIME BACK EVERY TIME I'M SUPPOSE TO GET THIS PAIN MEDICINE" I ATTEMPTED TO EXPLAIN TO THE PT THAT IT HAD NOT BEEN FOUR HOURS BETWEEN DOSES AND HE CONTINUED TO ARGUE, I REPLIED AND SAID THAT I WOULD RETURN TO HIS ROOM WHEN IT WAS TIME FOR HIS PAIN MEDICATION. HE THEN TURNED HIS CALL LIGHT ON AND TOLD AN EVS LADY USING HARSH PROFANITY TO GET THE NURSE BACK IN THE ROOM, CALLING THIS NURSE A "F B" PT THEN PLACED A CALL TO ALEXIA TRENT RN, NURSE FLOORMAN. ALEXIA CALLED AND SPOKE WITH THIS NURSE AND I EXPLAINED THE SITUATION AND ALEXIA CALLED THE PT BACK WHERE SHE WAS HUNG UP ON. THE PT CONTINUED TO YELL AND CUSS. ANGEL BARBER LPN ENTERED THE ROOM AND PT PUSHED CONTENTS OF THE SIDE TABLE INTO THE FLOOR. ALEXIA DREW RN, NURSE FLOORMAN ON THE FLOOR AT THIS TIME, ENTERED PTS ROOM WITH ME WHERE PT CONTINUED TO ARGUE AND WOULD NOT RESPOND TO ANYTHING SAID TO HIM. MEDICATIONS GIVEN PER ORDER. BED IN LOW POSITION AND CALL LIGHT WITHIN REACH. WILL CONTINUE TO MONITOR.
[2016-12-10] MEDS ORDERED: OXYCODONE HCL E20 MG PO (12:02)
[2016-12-10 12:17] VITALS: BP 148/80
--- NOTE | 2016-12-10 12:25 | NUR ---
Patient being discharged today to [facility] to a skilled bed. [facility] will pick the patient up in their van at 2:00pm Patients daughter Pao notified of patients discharge.
[2016-12-10 12:28] LABS: BASOPHILS 0.2 % (0-2); EOSINOPHILS 3.7 % (0-7); HEMATOCRIT 31.3 % (42.0-54.0); HEMOGLOBIN 9.6 g/dL (13.5-17.5); IMMATURE GRANULOCYTES 0.6 % (0-5); LYMPHOCYTES 12.7 % (15-50); MCH 24.7 pg (26.0-34.0); MCHC 30.7 g/dL (31.0-37.0); MCV 80.5 fL (80.0-100.0); MEAN PLATELET VOLUME 8.7 fL (7.4-10.4); MONOCYTES 7.7 % (2-11); NEUTROPHILS 75.1 % (40-80); PLATELET COUNT 424 10x3/uL (130-400); RBC 3.89 10x6/uL (4.20-6.10); RDW 18.2 % (11.5-14.5); WBC 8.8 10x3/uL (4.8-10.8)
--- NOTE | 2016-12-10 13:14 | NUR ---
ORAL PAIN MEDICATION GIVEN AT THIS TIME, PT ASKED WHY WE COULD NOT GIVE THE IV AND I INFORMED HIM THAT WE COULD NOT GIVE THE IV PAIN MEDICATION DUE TO HIM DISCHARGING. ASSISTED PT UP TO THE BEDSIDE COMMODE, PT WOULD NOT LET NURSE TOUCH LEGS OR HELP CLEAN THEM OFF. PT REQUESTED TO BE PUT IN THE WHEELCHAIR TO BE READY FOR DISCHARGE.
[2016-12-10 13:15] LABS: ALKALINE PHOSPHATASE 170 U/L (46-116); ALT (SGPT) 18 U/L (10-68); CALC OSMOLALITY 279 mosm/kg (275-300); CALCIUM 7.9 mg/dL (8.5-10.1); CARBON DIOXIDE 33.2 mmol/L (21.0-32.0); CHLORIDE - SERUM 109 mmol/L (98-107); CREATININE - SERUM 0.6 mg/dL (0.6-1.3); GLUCOSE 92 mg/dL (74-106); POTASSIUM - SERUM 4.3 mmol/L (3.5-5.1); PROTEIN - SERUM 4.9 g/dL (6.4-8.2); SODIUM 140 mmol/L (136-145); UREA NITROGEN 14 mg/dL (7-18); eGFR NON AFRICAN AMERICAN > 90 mL/min (90-120)
--- NOTE | 2016-12-10 14:10 | NUR ---
AT APPROX 1400 PT STARTED HOLLARING THAT HE DID NOT WANT TO GO TO [place], DISCUSSED WITH LAEXIA DREW RN AND AGNES WITH CASE MANAGMENT, PT WAS ARGUMENTATIE. TRANSPORT ARRIVED AND PT WAS DISCHAGED VIA WHEELCHAIR TO [facility].
== END 2016-12-10 15:05 | DRG 603 ==
LOC: D.ER 00:08 → D.MS 03:41
PROVIDERS: Emergency Medicine; Family Medicine; Internal Medicine Hematology & Oncology; ADMIT Family Medicine Adult Medicine
DX: L03.116 Cellulitis of left lower limb (principal); I69.359 Hemiplegia and hemiparesis following cerebral infarction affecting unspecified side; E87.1 Hypo-osmolality and hyponatremia; F17.203 Nicotine dependence unspecified, with withdrawal; I82.621 Acute embolism and thrombosis of deep veins of right upper extremity; I82.721 Chronic embolism and thrombosis of deep veins of right upper extremity; L03.115 Cellulitis of right lower limb; J44.9 Chronic obstructive pulmonary disease, unspecified; D50.9 Iron deficiency anemia, unspecified; I87.2 Venous insufficiency (chronic) (peripheral); Z86.73 Personal history of transient ischemic attack (TIA), and cerebral infarction without residual deficits; Z86.711 Personal history of pulmonary embolism; F12.10 Cannabis abuse, uncomplicated; K75.9 Inflammatory liver disease, unspecified; I73.9 Peripheral vascular disease, unspecified; E66.01 Morbid (severe) obesity due to excess calories; Z68.32 Body mass index [BMI] 32.0-32.9, adult; Z79.01 Long term (current) use of anticoagulants

== ENCOUNTER 2016-12-10 22:49 | Emergency (ER) | payer MEDICARE ==
[~2016-12-10 22:49] MED LIST changes: +COLACE100 MG PO; +ELIQUIS5 MG PO; +LYRICA25 MG PO; +MIRALAX17 GM PO; +OXYCODONE HCL E20 MG PO
[2016-12-11 01:04] LABS: APPEARANCE CLOUDY (CLEAR); BILIRUBIN NEGATIVE (NEGATIVE); COLOR YELLOW (YELLOW); GLUCOSE NEGATIVE (NEGATIVE); KETONE NEGATIVE (NEGATIVE); LEUKOCYTE ESTERASE 2+ (NEGATIVE); NITRITE NEGATIVE (NEGATIVE); PROTEIN 3+ mg/dL (NEGATIVE); SPECIFIC GRAVITY 1.005 (1.005-1.020); UROBILINOGEN NORMAL (NORMAL)
[2016-12-11 01:05] LABS: BACTERIA MANY /hpf (NONE SEEN); EPITHELIAL CELLS 0-5 /hpf (0-5); RED CELLS - URINE 0-5 /hpf (0-5)
[2016-12-11 01:06] LABS: HEMATOCRIT 30.4 % (42.0-54.0); HEMOGLOBIN 9.4 g/dL (13.5-17.5); LYMPHOCYTES 11.1 % (15-50); MCH 24.4 pg (26.0-34.0); MCHC 30.9 g/dL (31.0-37.0); MCV 78.8 fL (80.0-100.0); MEAN PLATELET VOLUME 8.1 fL (7.4-10.4); NEUTROPHILS 78.3 % (40-80); PLATELET COUNT 497 10x3/uL (130-400); RBC 3.86 10x6/uL (4.20-6.10); RDW 17.7 % (11.5-14.5); WBC 10.8 10x3/uL (4.8-10.8)
[2016-12-11 01:22] LABS: ALKALINE PHOSPHATASE 160 U/L (46-116); ALT (SGPT) 17 U/L (10-68); CALC OSMOLALITY 281 mosm/kg (275-300); CALCIUM 8.4 mg/dL (8.5-10.1); CARBON DIOXIDE 27.6 mmol/L (21.0-32.0); CHLORIDE - SERUM 108 mmol/L (98-107); CREATININE - SERUM 0.7 mg/dL (0.6-1.3); GLUCOSE 86 mg/dL (74-106); POTASSIUM - SERUM 4.3 mmol/L (3.5-5.1); PROTEIN - SERUM 5.9 g/dL (6.4-8.2); SODIUM 141 mmol/L (136-145); UREA NITROGEN 17 mg/dL (7-18); eGFR NON AFRICAN AMERICAN > 90 mL/min (90-120)
[2016-12-11 01:33] LABS: CKMB 0.5 U/L (0.0-3.6); CREATINE KINASE 48 UL (21-232); TROPONIN-I 0.021 ng/mL (0.000-0.060)
== END 2016-12-11 09:09 | disposition home or self-care (01) ==
LOC: D.ER 22:49
PROVIDERS: Family Medicine
DX: R53.1 Weakness (principal); L97.929 Non-pressure chronic ulcer of unspecified part of left lower leg with unspecified severity; L97.919 Non-pressure chronic ulcer of unspecified part of right lower leg with unspecified severity; I48.91 Unspecified atrial fibrillation; J44.9 Chronic obstructive pulmonary disease, unspecified; N18.9 Chronic kidney disease, unspecified

== ENCOUNTER 2017-07-07 11:02 | Emergency (ER) | payer MEDICARE ==
[2017-07-07 12:23] LABS: BASOPHILS 0.4 % (0-2); EOSINOPHILS 2.6 % (0-7); HEMATOCRIT 39.2 % (42.0-54.0); HEMOGLOBIN 12.5 g/dL (13.5-17.5); IMMATURE GRANULOCYTES 0.1 % (0-5); LYMPHOCYTES 18.5 % (15-50); MCH 25.9 pg (26.0-34.0); MCHC 31.9 g/dL (31.0-37.0); MCV 81.3 fL (80.0-100.0); MEAN PLATELET VOLUME 9.7 fL (7.4-10.4); MONOCYTES 10.8 % (2-11); NEUTROPHILS 67.6 % (40-80); RBC 4.82 10x6/uL (4.20-6.10); RDW 18.5 % (11.5-14.5); WBC 8.2 10x3/uL (4.8-10.8)
[2017-07-07 12:25] LABS: PLATELET COUNT 181 10x3/uL (130-400)
[2017-07-07 12:38] LABS: APTT 35.6 SECONDS (22.8-39.4); INR 1.63 (0.85-1.17); PROTIME 18.8 SECONDS (11.6-15.0)
[2017-07-07 12:42] LABS: ALBUMIN 1.6 g/dL (3.4-5.0); ANION GAP 12.6 mmol/L (8-16); BILIRUBIN - TOTAL 0.19 mg/dL (0.2-1.3); CARBON DIOXIDE 23.6 mmol/L (21.0-32.0); CREATININE - SERUM 1.2 mg/dL (0.6-1.3); POTASSIUM - SERUM 4.2 mmol/L (3.5-5.1); PROTEIN - SERUM 6.8 g/dL (6.4-8.2)
== END 2017-07-07 14:28 | disposition left against medical advice (07) ==
LOC: D.ER 11:02
PROVIDERS: Emergency Medicine
DX: M79.662 Pain in left lower leg (principal); M79.661 Pain in right lower leg

== ENCOUNTER 2017-07-07 15:42 | Emergency (ER) | payer MEDICARE | END 2017-07-07 17:46 | disposition left against medical advice (07) | LOC: D.ER 15:42 | DX: M79.662 Pain in left lower leg (principal); M79.661 Pain in right lower leg ==

== ENCOUNTER 2017-08-14 10:11 | Emergency (ER) | payer MEDICARE ==
[2017-08-14 10:44] LABS: BASOPHILS 0.4 % (0-2); EOSINOPHILS 3.5 % (0-7); HEMATOCRIT 43.9 % (42.0-54.0); HEMOGLOBIN 14.5 g/dL (13.5-17.5); IMMATURE GRANULOCYTES 0.3 % (0-5); MCH 27.1 pg (26.0-34.0); MCV 82.1 fL (80.0-100.0); MEAN PLATELET VOLUME 9.6 fL (7.4-10.4); MONOCYTES 10.7 % (2-11); NEUTROPHILS 61.1 % (40-80); PLATELET COUNT 156 10x3/uL (130-400); RBC 5.35 10x6/uL (4.20-6.10); WBC 6.9 10x3/uL (4.8-10.8)
[2017-08-14 10:58] LABS: ALBUMIN 1.8 g/dL (3.4-5.0); ANION GAP 10.6 mmol/L (8-16); BILIRUBIN - TOTAL 0.28 mg/dL (0.2-1.3); CALCIUM 8.5 mg/dL (8.5-10.1); CARBON DIOXIDE 27.3 mmol/L (21.0-32.0); CREATININE - SERUM 1.3 mg/dL (0.6-1.3); POTASSIUM - SERUM 3.9 mmol/L (3.5-5.1); PROTEIN - SERUM 7.1 g/dL (6.4-8.2)
[2017-08-14 10:59] LABS: APTT 27.8 SECONDS (22.8-39.4)
[2017-08-14 11:05] LABS: INR 1.05 (0.85-1.17); PROTIME 13.3 SECONDS (11.6-15.0)
[2017-08-14 11:13] LABS: D-DIMER-QUANTITATIVE 11.34 ug/mLFEU (0.20-0.54)
== END 2017-08-14 12:00 | disposition home or self-care (01) ==
LOC: D.ER 10:11
PROVIDERS: Family Medicine
DX: M79.662 Pain in left lower leg (principal); M79.661 Pain in right lower leg; I87.8 Other specified disorders of veins; I82.403 Acute embolism and thrombosis of unspecified deep veins of lower extremity, bilateral; Z79.01 Long term (current) use of anticoagulants

== ENCOUNTER 2017-11-09 03:54 | Observation (INO) | payer MEDICARE ==
[~2017-11-09] VITALS: Ht 182.9 cm; Wt 95.5 kg
[2017-11-09] MEDS ORDERED: XARELTO15 MG PO (04:13)
[2017-11-09 04:51] LABS: BASOPHILS 0.6 % (0-2); EOSINOPHILS 9.5 % (0-7); HEMATOCRIT 49.7 % (42.0-54.0); HEMOGLOBIN 16.5 g/dL (13.5-17.5); IMMATURE GRANULOCYTES 0.8 % (0-5); LYMPHOCYTES 23.2 % (15-50); MCH 28.8 pg (26.0-34.0); MCHC 33.2 g/dL (31.0-37.0); MCV 86.7 fL (80.0-100.0); MEAN PLATELET VOLUME 9.9 fL (7.4-10.4); MONOCYTES 8.9 % (2-11); PLATELET COUNT 149 10x3/uL (130-400); RBC 5.73 10x6/uL (4.20-6.10); RDW 16.9 % (11.5-14.5); WBC 6.7 10x3/uL (4.8-10.8)
[2017-11-09 05:13] LABS: ALBUMIN 1.8 g/dL (3.4-5.0); ALKALINE PHOSPHATASE 104 U/L (46-116); ALT (SGPT) 21 U/L (10-68); BILIRUBIN - TOTAL 0.25 mg/dL (0.2-1.3); CALC OSMOLALITY 273 mosm/kg (275-300); CALCIUM 7.6 mg/dL (8.5-10.1); CARBON DIOXIDE 23.4 mmol/L (21.0-32.0); CHLORIDE - SERUM 105 mmol/L (98-107); CREATININE - SERUM 0.9 mg/dL (0.6-1.3); GLUCOSE 92 mg/dL (74-106); POTASSIUM - SERUM 4.3 mmol/L (3.5-5.1); PROTEIN - SERUM 6.4 g/dL (6.4-8.2); SODIUM 136 mmol/L (136-145); UREA NITROGEN 18 mg/dL (7-18); eGFR NON AFRICAN AMERICAN 88 mL/min (90-120)
[2017-11-09 06:03] VITALS: BP 166/98
[2017-11-09 08:47] VITALS: BP 132/84
[2017-11-09 12:53] VITALS: BP 141/69
[2017-11-09 20:46] VITALS: BP 162/94
[2017-11-10 01:19] VITALS: BP 104/62
[2017-11-10 05:05] VITALS: BP 149/86
[2017-11-10 05:18] LABS: BASOPHILS 0.6 % (0-2); EOSINOPHILS 9.8 % (0-7); HEMATOCRIT 44.7 % (42.0-54.0); HEMOGLOBIN 14.7 g/dL (13.5-17.5); IMMATURE GRANULOCYTES 0.4 % (0-5); LYMPHOCYTES 17.4 % (15-50); MCH 28.8 pg (26.0-34.0); MCHC 32.9 g/dL (31.0-37.0); MCV 87.5 fL (80.0-100.0); MEAN PLATELET VOLUME 10.1 fL (7.4-10.4); NEUTROPHILS 57.8 % (40-80); PLATELET COUNT 157 10x3/uL (130-400); RBC 5.11 10x6/uL (4.20-6.10); RDW 17.2 % (11.5-14.5); WBC 7.2 10x3/uL (4.8-10.8)
[2017-11-10 05:45] LABS: ALBUMIN 1.4 g/dL (3.4-5.0); ALKALINE PHOSPHATASE 90 U/L (46-116); BILIRUBIN - TOTAL 0.17 mg/dL (0.2-1.3); CALC OSMOLALITY 282 mosm/kg (275-300); CALCIUM 7.8 mg/dL (8.5-10.1); CHLORIDE - SERUM 107 mmol/L (98-107); CREATININE - SERUM 0.8 mg/dL (0.6-1.3); GLUCOSE 95 mg/dL (74-106); PHOSPHOROUS 3.3 mg/dL (2.5-4.9); POTASSIUM - SERUM 4.3 mmol/L (3.5-5.1); PROTEIN - SERUM 6.2 g/dL (6.4-8.2); SODIUM 141 mmol/L (136-145); UREA NITROGEN 17 mg/dL (7-18); eGFR NON AFRICAN AMERICAN > 90 mL/min (90-120)
[2017-11-10 05:47] LABS: ALT (SGPT) 11 U/L (10-68); CARBON DIOXIDE 29.8 mmol/L (21.0-32.0)
[2017-11-10 07:35] VITALS: BP 146/71
[2017-11-10 11:04] VITALS: BP 140/71; Ht 182.9 cm; Wt 95.5 kg
[2017-11-10] MEDS ORDERED: PROTONIX40 MG PO (11:31)
[2017-11-10] MEDS ORDERED: NICODERM C1 PATCH .2 TRANSDERM (11:31)
[2017-11-10 11:41] VITALS: BP 152/78
== END 2017-11-10 18:05 ==
LOC: D.ER 03:54 → D.EDHOLD 05:42 → D.M2 05:42 → OBSVTIME 05:42 → D.M2 06:04
PROVIDERS: Family Medicine
DX: L03.116 Cellulitis of left lower limb (principal); L03.115 Cellulitis of right lower limb; F17.213 Nicotine dependence, cigarettes, with withdrawal; I87.8 Other specified disorders of veins; J44.9 Chronic obstructive pulmonary disease, unspecified; I82.811 Embolism and thrombosis of superficial veins of right lower extremity

== ENCOUNTER 2017-11-10 16:26 | Inpatient (IN) | payer MEDICARE ==
[~2017-11-10] VITALS: Ht 182.9 cm; Wt 95.3 kg
--- NOTE | ~2017-11-10 | RHP ---
PATIENT: MAKENZIE DESAI MEDICAL RECORD: [id number] ACCOUNT: [id number] LOCATION:[facility] : 47 ADMISSION DATE: 11/10/17 REHABILITATION HISTORY AND PHYSICAL EXAMINATION POST ADMISSION PHYSICIAN EXAMINATION POST-ADMISSION PHYSICAL EXAMINATION AND HISTORY AND PHYSICAL DATE OF ADMISSION: 11/10/2017 ADMITTING DIAGNOSES: Cellulitis of bilateral lower extremities. HISTORY OF PRESENT ILLNESS: The patient is a 72-year-old gentleman, who presents. He has no local doctor. He was admitted to the inpatient rehab with debility secondary to bilateral lower extremity cellulitis. He is seen at the [facility]. He has past medical history of CVA with peripheral vascular disease, DVT, peripheral neuropathy, and COPD. He presented to the ER on 11/09 by ambulance complaining of bilateral lower extremity swelling, edema, redness, blisters, pain, and venous stasis changes. He is having difficulty ambulating due to increased pain in his legs and dyspnea on exertion. He had bilateral lower extremity edema, erythema, blisters to the dorsum of both feet. He has chronic vascular changes to bilateral lower extremities. Lungs were clear to auscultation, but diminished. Bilateral venous Doppler showed nonocclusive thrombus in the right greater saphenous vein near the saphenofemoral junction. The findings were compatible with superficial thrombophlebitis. He was admitted with bilateral lower extremity cellulitis and right superficial thrombophlebitis. He was started on vancomycin and Merrem. He is [id number] assist for ADLs and mobility currently. He is working with PT and he is able to ambulate 30 feet with a rolling walker, gait belt, and PT assistance. He also complains of frequent choking and difficulty swallowing. Barriers to discharge include: He lives alone. He has had recent falls due to increased pain and dyspnea with exertion and difficulty swallowing. He needs to be evaluated by speech therapy to rule out any type of dysphagia and evaluation also for home O2 needs. He wants to be able to return back home at his prior level of functioning where he was once independent with ADLs and also mobility. Comorbidities include peripheral vascular disease, peripheral edema, nonocclusive thrombus, peripheral neuropathy, recent falls, history of hepatitis C, bilateral lower extremity venous stasis, pain in bilateral lower extremities, weakness, low albumin, dyspnea on exertion, CVA, cataracts, and PTSD. PAST MEDICAL HISTORY: Significant for CVA, neuropathy, air embolism, cataracts. 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 PAST SURGICAL HISTORY: Includes tonsillectomy. He has had a tympanoplasty and laminectomy. ALLERGIES: NONSTEROIDAL ANTI-INFLAMMATORIES, PENICILLIN, SULFA, KEFLEX, IODINE, LOVENOX, NEOMYCIN, DEMEROL, AND MORPHINE. CURRENT MEDICATIONS: Include Xarelto 15 mg daily, Protonix 40 mg daily. He is on a Nicoderm patch and hydrocodone 5/325 one tab every 4 hours p.r.n. HABITS: No current alcohol or tobacco use. HISTORY AND PHYSICAL [id number] MAKENZIE DESAI FAMILY HISTORY: Noncontributory. SOCIAL HISTORY: As above. The patient wants to return back home and get back to his prior level of functioning. REVIEW OF SYSTEMS: GENERAL: Does complain of weakness and fatigue. HEENT: Denies cold, cough, or congestion. CARDIOVASCULAR: Denies chest pain. PHYSICAL EXAMINATION: VITAL SIGNS: Stable, afebrile. GENERAL: An elderly gentleman, in no acute distress upon exam. HEENT: Normocephalic and atraumatic. Mucosa moist. NECK: Supple. No lymphadenopathy. LUNGS: Clear at this time. HEART: Regular rate and rhythm. ABDOMEN: Benign. EXTREMITIES: Does have venous stasis changes and also does have decreased pulses in his posterior tibial arteries. 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 NEUROLOGIC: He does have noted weakness. LABORATORY DATA: His white count of 6.6, H&H of 14 and 43, and platelet count is 160. Sodium is 138, potassium 4.1, BUN and creatinine of 20 and 0.8, and blood sugar is noted to be 86. ASSESSMENT: This 72-year-old gentleman admitted to the rehab with a working diagnosis of cellulitis to both lower extremities and also a history of peripheral vascular disease. The patient has potential to make improvement. We will institute the following multidisciplinary therapies including, but not limited to, physical, occupational, respiratory, speech, nutritional services, prosthetics and orthotics. Given his complex medical condition and risks for more complications, rehabilitation services cannot be provided at a low level of care such as a jail facility. PLAN: 1. Admit to [facility] for intensive inpatient therapy to include the following disciplines: A. Physical therapy to improve gait, all transfer skills and bed mobility to a modified independent level. B. Occupational therapy to improve activities of daily living to a modified independent level. C. Case management to assist with discharge planning and placement options. D. Nutrition to assist with nutritional needs. E. Rehabilitation nursing to assist in monitoring the patient's underlying medical conditions and to assist with any type of bowel or bladder management. 2. The patient's current medications and medical care will be continued. 3. The patient will be placed on standard fall precautions. 4. The patient's estimated length of stay is approximately 7-10 days. 5. We will go ahead and titrate him on his O2, adjust his medications during his stay, and hopefully get him back home on his own here in the estimated time period we have him. TRANSINT:[id number] Voice Confirmation ID: [id number] DOCUMENT ID: [id number] HISTORY AND PHYSICAL [id number] MAKENZIE DESAI notes whether there has been none or any medical/functional change since admission: - No change since preadmission screen. ARINA attests patient continues to be appropriate for IRF: - Continues to be appropriate. LIVIER MCCLOUD MD at 1845 CC: [id number] DICTATION DATE: 11/11/17814 ASSISTANT BOILER OPERATOR: 11/11/17913 DIS IN 11/14/17 [facility] [address] [id number]
[~2017-11-10 16:26] MED LIST changes: +NICODERM C1 PATCH .2 TRANSDERM; +PROTONIX40 MG PO
[2017-11-10 18:00] VITALS: BP 164/90
[2017-11-10 18:24] VITALS: BP 164/90
[2017-11-11 07:01] LABS: CALC OSMOLALITY 277 mosm/kg (275-300); CALCIUM 7.7 mg/dL (8.5-10.1); CARBON DIOXIDE 29.9 mmol/L (21.0-32.0); CHLORIDE - SERUM 107 mmol/L (98-107); CREATININE - SERUM 0.8 mg/dL (0.6-1.3); GLUCOSE 86 mg/dL (74-106); POTASSIUM - SERUM 4.1 mmol/L (3.5-5.1); SODIUM 138 mmol/L (136-145); UREA NITROGEN 20 mg/dL (7-18); eGFR NON AFRICAN AMERICAN > 90 mL/min (90-120)
[2017-11-11 07:10] LABS: BASOPHILS 0.5 % (0-2); EOSINOPHILS 8.6 % (0-7); HEMATOCRIT 43.3 % (42.0-54.0); HEMOGLOBIN 14.2 g/dL (13.5-17.5); IMMATURE GRANULOCYTES 0.5 % (0-5); LYMPHOCYTES 22.3 % (15-50); MCH 28.9 pg (26.0-34.0); MCHC 32.8 g/dL (31.0-37.0); MEAN PLATELET VOLUME 10.7 fL (7.4-10.4); MONOCYTES 14.4 % (2-11); NEUTROPHILS 53.7 % (40-80); PLATELET COUNT 160 10x3/uL (130-400); RBC 4.92 10x6/uL (4.20-6.10); RDW 17.1 % (11.5-14.5); WBC 6.6 10x3/uL (4.8-10.8)
[2017-11-11 07:47] VITALS: BP 153/71
[2017-11-11 12:59] VITALS: Ht 182.9 cm; Wt 95.3 kg
[2017-11-11 19:00] VITALS: BP 153/69
[2017-11-12 06:59] LABS: BASOPHILS 0.5 % (0-2); HEMATOCRIT 44.7 % (42.0-54.0); HEMOGLOBIN 14.7 g/dL (13.5-17.5); IMMATURE GRANULOCYTES 0.5 % (0-5); LYMPHOCYTES 20.8 % (15-50); MCH 28.6 pg (26.0-34.0); MCHC 32.9 g/dL (31.0-37.0); MEAN PLATELET VOLUME 10.2 fL (7.4-10.4); MONOCYTES 14.1 % (2-11); NEUTROPHILS 56.1 % (40-80); PLATELET COUNT 155 10x3/uL (130-400); RBC 5.14 10x6/uL (4.20-6.10); RDW 16.6 % (11.5-14.5)
[2017-11-12 07:15] LABS: CALC OSMOLALITY 276 mosm/kg (275-300); CALCIUM 7.9 mg/dL (8.5-10.1); CARBON DIOXIDE 29.1 mmol/L (21.0-32.0); CHLORIDE - SERUM 107 mmol/L (98-107); CREATININE - SERUM 0.7 mg/dL (0.6-1.3); GLUCOSE 95 mg/dL (74-106); POTASSIUM - SERUM 4.6 mmol/L (3.5-5.1); SODIUM 137 mmol/L (136-145); UREA NITROGEN 20 mg/dL (7-18); eGFR NON AFRICAN AMERICAN > 90 mL/min (90-120)
[2017-11-12 07:49] VITALS: BP 161/94
[2017-11-12 19:00] VITALS: BP 173/80
[2017-11-13 08:00] VITALS: BP 126/65
[2017-11-13 19:00] VITALS: BP 137/68
[2017-11-14 08:00] VITALS: BP 126/61
[2017-11-14] MEDS ORDERED: HYDROCODON-ACE1 EAC7 PO (08:34)
[2017-11-14 08:47] LABS: CALC OSMOLALITY 276 mosm/kg (275-300); CALCIUM 7.5 mg/dL (8.5-10.1); CARBON DIOXIDE 18.9 mmol/L (21.0-32.0); CHLORIDE - SERUM 106 mmol/L (98-107); CREATININE - SERUM 0.8 mg/dL (0.6-1.3); GLUCOSE 130 mg/dL (74-106); POTASSIUM - SERUM 4.6 mmol/L (3.5-5.1); SODIUM 135 mmol/L (136-145); UREA NITROGEN 27 mg/dL (7-18); eGFR NON AFRICAN AMERICAN > 90 mL/min (90-120)
[2017-11-14 09:18] LABS: HEMATOCRIT 44.8 % (42.0-54.0); HEMOGLOBIN 14.8 g/dL (13.5-17.5); LYMPHOCYTES 25.1 % (15-50); MCV 87.7 fL (80.0-100.0); MEAN PLATELET VOLUME 9.7 fL (7.4-10.4); NEUTROPHILS 64.9 % (40-80); PLATELET COUNT 154 10x3/uL (130-400); RBC 5.11 10x6/uL (4.20-6.10); RDW 17.1 % (11.5-14.5); WBC 5.2 10x3/uL (4.8-10.8)
== END 2017-11-14 12:29 | disposition home health service (06) | DRG 948 ==
LOC: D.REHAB 16:26
PROVIDERS: Emergency Medicine
DX: R53.81 Other malaise (principal); L03.116 Cellulitis of left lower limb; L03.115 Cellulitis of right lower limb; I82.811 Embolism and thrombosis of superficial veins of right lower extremity; I73.9 Peripheral vascular disease, unspecified; G62.9 Polyneuropathy, unspecified; M79.605 Pain in left leg; M79.604 Pain in right leg; R53.1 Weakness; R06.00 Dyspnea, unspecified; F43.10 Post-traumatic stress disorder, unspecified; Z91.81 History of falling; Z86.19 Personal history of other infectious and parasitic diseases

== ENCOUNTER 2018-02-18 20:27 | Inpatient (IN) | payer MEDICARE, OTHER ==
[2018-02-18 21:09] LABS: BASOPHILS 0.1 % (0-2); EOSINOPHILS 2.1 % (0-7); HEMATOCRIT 40.7 % (42.0-54.0); HEMOGLOBIN 13.3 g/dL (13.5-17.5); IMMATURE GRANULOCYTES 0.4 % (0-5); LYMPHOCYTES 5.2 % (15-50); MCH 30.2 pg (26.0-34.0); MCHC 32.7 g/dL (31.0-37.0); MCV 92.3 fL (80.0-100.0); MEAN PLATELET VOLUME 10.4 fL (7.4-10.4); NEUTROPHILS 79.2 % (40-80); PLATELET COUNT 158 10x3/uL (130-400); RBC 4.41 10x6/uL (4.20-6.10); RDW 16.2 % (11.5-14.5); WBC 9.1 10x3/uL (4.8-10.8)
[2018-02-18 21:22] LABS: ALBUMIN 1.6 g/dL (3.4-5.0); ALKALINE PHOSPHATASE 84 U/L (46-116); ALT (SGPT) 24 U/L (10-68); BILIRUBIN - TOTAL 0.32 mg/dL (0.2-1.3); CALC OSMOLALITY 270 mosm/kg (275-300); CALCIUM 7.7 mg/dL (8.5-10.1); CARBON DIOXIDE 25.9 mmol/L (21.0-32.0); CHLORIDE - SERUM 104 mmol/L (98-107); CREATININE - SERUM 0.9 mg/dL (0.6-1.3); POTASSIUM - SERUM 4.2 mmol/L (3.5-5.1); PROTEIN - SERUM 6.1 g/dL (6.4-8.2); SODIUM 135 mmol/L (136-145); UREA NITROGEN 18 mg/dL (7-18); eGFR NON AFRICAN AMERICAN 88 mL/min (90-120)
[2018-02-18 21:24] LABS: GLUCOSE 80 mg/dL (74-106)
[2018-02-18 21:30] LABS: PRO BNP 1381 pg/mL (0-125)
[2018-02-19 05:25] LABS: BASOPHILS 0 % (0-2); EOSINOPHILS 0 % (0-7); HEMATOCRIT 40.4 % (42.0-54.0); HEMOGLOBIN 13.1 g/dL (13.5-17.5); IMMATURE GRANULOCYTES 0.3 % (0-5); LYMPHOCYTES 4.1 % (15-50); MCHC 32.4 g/dL (31.0-37.0); MCV 92.4 fL (80.0-100.0); MEAN PLATELET VOLUME 11.3 fL (7.4-10.4); NEUTROPHILS 93.6 % (40-80); PLATELET COUNT 167 10x3/uL (130-400); RBC 4.37 10x6/uL (4.20-6.10); RDW 16.3 % (11.5-14.5)
[2018-02-19 05:39] LABS: WBC 6.4 10x3/uL (4.8-10.8)
[2018-02-19 05:55] LABS: ALBUMIN 1.4 g/dL (3.4-5.0); ALKALINE PHOSPHATASE 78 U/L (46-116); ALT (SGPT) 19 U/L (10-68); BILIRUBIN - TOTAL 0.35 mg/dL (0.2-1.3); CALC OSMOLALITY 279 mosm/kg (275-300); CALCIUM 7.4 mg/dL (8.5-10.1); CARBON DIOXIDE 23.1 mmol/L (21.0-32.0); CHLORIDE - SERUM 105 mmol/L (98-107); CREATININE - SERUM 0.9 mg/dL (0.6-1.3); GLUCOSE 103 mg/dL (74-106); SODIUM 140 mmol/L (136-145); UREA NITROGEN 16 mg/dL (7-18); eGFR NON AFRICAN AMERICAN 90 mL/min (90-120)
[2018-02-19 14:10] LABS: % SATURATION 9 % (15-55); IRON 21 ug/dl (35-150); TOTAL IRON BIND CAPACITY 212 ug/dl (260-445); UNSAT IRON BIND CAPACITY 191 ug/dl (150-375)
[2018-02-19 14:24] LABS: CKMB 5.3 U/L (0.0-3.6); CREATINE KINASE 392 UL (21-232); TROPONIN-I < 0.017 ng/mL (0.000-0.060)
[2018-02-19 19:24] LABS: CKMB 4.6 U/L (0.0-3.6); CREATINE KINASE 337 UL (21-232); TROPONIN-I 0.018 ng/mL (0.000-0.060)
[2018-02-20 08:21] LABS: FOLATE (FOLIC ACID) - SERUM 15.1 ng/mL (>3.0)
[2018-02-20 11:04] LABS: APPEARANCE HAZY (CLEAR); BILIRUBIN NEGATIVE (NEGATIVE); COLOR DK YELLOW (YELLOW); GLUCOSE NEGATIVE (NEGATIVE); KETONE SMALL mg/dL (NEGATIVE); NITRITE NEGATIVE (NEGATIVE); PROTEIN 3+ mg/dL (NEGATIVE); SPECIFIC GRAVITY 1.025 (1.005-1.020)
[2018-02-20 11:05] LABS: BACTERIA FEW /hpf (NONE SEEN); EPITHELIAL CELLS 0-5 /hpf (0-5); GRANULAR CAST RARE /lpf (NONE SEEN); HYALINE CAST 0-5 /lpf (NONE SEEN); MUCUS <1+ /lpf (NONE SEEN); RED CELLS - URINE OCC /hpf (0-5); WHITE CELLS - URINE RARE /hpf (0-5)
[2018-02-20 16:54] LABS: T4 THYROXIN - FREE 1.06 ng/dL (0.76-1.46); THYROID STIMULATING HORMONE 0.9 uIU/mL (0.36-3.74)
[2018-02-21 05:45] LABS: BASOPHILS 0.1 % (0-2); EOSINOPHILS 0 % (0-7); HEMATOCRIT 42.1 % (42.0-54.0); HEMOGLOBIN 13.8 g/dL (13.5-17.5); IMMATURE GRANULOCYTES 0.3 % (0-5); LYMPHOCYTES 2.5 % (15-50); MCH 30.5 pg (26.0-34.0); MCHC 32.8 g/dL (31.0-37.0); MCV 92.9 fL (80.0-100.0); MEAN PLATELET VOLUME 10.9 fL (7.4-10.4); MONOCYTES 2.5 % (2-11); NEUTROPHILS 94.6 % (40-80); RBC 4.53 10x6/uL (4.20-6.10); RDW 16.8 % (11.5-14.5); WBC 14.6 10x3/uL (4.8-10.8)
[2018-02-21 05:49] LABS: PLATELET COUNT 212 10x3/uL (130-400)
[2018-02-21 06:17] LABS: ANION GAP 13.4 mmol/L (8-16); CALCIUM 7.5 mg/dL (8.5-10.1); CARBON DIOXIDE 26.2 mmol/L (21.0-32.0); CREATININE - SERUM 1.3 mg/dL (0.6-1.3); POTASSIUM - SERUM 5.6 mmol/L (3.5-5.1)
[2018-02-21 16:16] LABS: UDS - AMPHET NEGATIVE QUAL (NEGATIVE); UDS - BARB NEGATIVE QUAL (NEGATIVE); UDS - BENZO NEGATIVE QUAL (NEGATIVE); UDS - COCAINE NEGATIVE QUAL (NEGATIVE); UDS - OPIATE POSITIVE QUAL (NEGATIVE); UDS - PCP NEGATIVE QUAL (NEGATIVE); UDS - THC POSITIVE QUAL (NEGATIVE)
[2018-02-22 02:53] LABS: BASOPHILS 0 % (0-2); EOSINOPHILS 0 % (0-7); HEMATOCRIT 41.3 % (42.0-54.0); HEMOGLOBIN 13.3 g/dL (13.5-17.5); IMMATURE GRANULOCYTES 0.3 % (0-5); LYMPHOCYTES 2.6 % (15-50); MCHC 32.2 g/dL (31.0-37.0); MCV 93.2 fL (80.0-100.0); MEAN PLATELET VOLUME 10.6 fL (7.4-10.4); MONOCYTES 3.8 % (2-11); NEUTROPHILS 93.3 % (40-80); PLATELET COUNT 191 10x3/uL (130-400); RBC 4.43 10x6/uL (4.20-6.10); RDW 16.8 % (11.5-14.5); WBC 12.7 10x3/uL (4.8-10.8)
[2018-02-22 03:11] LABS: ANION GAP 7.9 mmol/L (8-16); CALCIUM 7.6 mg/dL (8.5-10.1); CARBON DIOXIDE 29.6 mmol/L (21.0-32.0); CREATININE - SERUM 1.2 mg/dL (0.6-1.3); POTASSIUM - SERUM 4.5 mmol/L (3.5-5.1)
[2018-02-22 13:07] LABS: IMMUNOGLOBULIN A 141 mg/dL (61-437)
[2018-02-23 05:40] LABS: BASOPHILS 0.1 % (0-2); EOSINOPHILS 0 % (0-7); HEMATOCRIT 43.2 % (42.0-54.0); HEMOGLOBIN 13.9 g/dL (13.5-17.5); IMMATURE GRANULOCYTES 0.4 % (0-5); LYMPHOCYTES 2.3 % (15-50); MCH 30.1 pg (26.0-34.0); MCHC 32.2 g/dL (31.0-37.0); MCV 93.5 fL (80.0-100.0); MONOCYTES 5.8 % (2-11); NEUTROPHILS 91.4 % (40-80); PLATELET COUNT 192 10x3/uL (130-400); RBC 4.62 10x6/uL (4.20-6.10); RDW 16.8 % (11.5-14.5); WBC 9.2 10x3/uL (4.8-10.8)
[2018-02-23 06:07] LABS: CALC OSMOLALITY 306 mosm/kg (275-300); CALCIUM 7.4 mg/dL (8.5-10.1); CARBON DIOXIDE 29.6 mmol/L (21.0-32.0); CHLORIDE - SERUM 110 mmol/L (98-107); GLUCOSE 189 mg/dL (74-106); POTASSIUM - SERUM 4.8 mmol/L (3.5-5.1); SODIUM 146 mmol/L (136-145); UREA NITROGEN 44 mg/dL (7-18); eGFR NON AFRICAN AMERICAN 79 mL/min (90-120)
[2018-02-25 03:11] LABS: IMMUNOGLOBULIN E 4717 IU/mL (0-100)
[2018-02-25 07:34] LABS: IGG SUBCLASS 1 585 mg/dL (248-810); IGG SUBCLASS 2 107 mg/dL (130-555); IGG SUBCLASS 3 51 mg/dL (15-102); IGG SUBCLASS 4 97 mg/dL (2-96); IMMUNOGLOBULIN G 801 mg/dL (700-1600)
== END 2018-02-23 14:53 | disposition left against medical advice (07) | DRG 177 ==
LOC: D.ER 20:27 → D.EDHOLD 22:25 → D.M2 23:44
PROVIDERS: Family Medicine; Internal Medicine Nephrology; Internal Medicine Pulmonary Disease
DX: J15.6 Pneumonia due to other Gram-negative bacteria (principal); E43 Unspecified severe protein-calorie malnutrition; J44.0 Chronic obstructive pulmonary disease with (acute) lower respiratory infection; J44.1 Chronic obstructive pulmonary disease with (acute) exacerbation; F17.213 Nicotine dependence, cigarettes, with withdrawal; J98.11 Atelectasis; I82.402 Acute embolism and thrombosis of unspecified deep veins of left lower extremity; J15.212 Pneumonia due to Methicillin resistant Staphylococcus aureus; J69.0 Pneumonitis due to inhalation of food and vomit; Y95 Nosocomial condition; Z79.01 Long term (current) use of anticoagulants; I48.91 Unspecified atrial fibrillation; I12.9 Hypertensive chronic kidney disease with stage 1 through stage 4 chronic kidney disease, or unspecified chronic kidney disease; N18.9 Chronic kidney disease, unspecified; I73.9 Peripheral vascular disease, unspecified; D50.9 Iron deficiency anemia, unspecified; J30.81 Allergic rhinitis due to animal (cat) (dog) hair and dander; F12.90 Cannabis use, unspecified, uncomplicated; F11.90 Opioid use, unspecified, uncomplicated; Z68.31 Body mass index [BMI] 31.0-31.9, adult; Z86.718 Personal history of other venous thrombosis and embolism; Z86.73 Personal history of transient ischemic attack (TIA), and cerebral infarction without residual deficits

== ENCOUNTER 2018-02-25 10:20 | Inpatient (IN) | payer MEDICARE ==
[~2018-02-25] VITALS: Ht 182.9 cm; Wt 118.2 kg
--- NOTE | ~2018-02-25 | MORECARE ---
CASE MANAGEMENT DISCHARGE SUMMARY PATIENT: MAKENZIE DESAI UNIT: [id number] ADM DATE: 02/25/18 AGE: 67 : [birth year] SEX: M ROOM/BED: D.2112 AUTHOR: СЕРГЕЙ,DOC PHYSICIAN: REFERRING PHYSICIAN: MAURI ASH MD DATE OF SERVICE: 03/03/18 Discharge Plan Patient Name: MAKENZIE DESAI [facility] [facility] 07/23/1950 Planned Disposition: Home with Home Health Anticipated Discharge Date: 03/03/18 Discharge Date: Expected LOS: 6 Initial Reviewer: [email or web address] Initial Review Date: 02/26/2018 Generated: 03/03/18 1:11 pm Comments DCP- Discharge Planning Updated by [email or web address]: Broderick Yo on 02/26/18 3:[address] Patient Name: MAKENZIE DESAI Admission Status: ER Accout number: [id number] Admission Date: 02-25-2018 : 07-23-1950 Admission Diagnosis:SHORTNESS OF BREATH Attending: MAURI DAUGHERTY Current LOS: 1 Anticipated DC Date: 02-27-2018 Planned Disposition: Inpatient Rehab Primary Insurance: MEDICARE A & B PLANNED EXTERNAL PROVIDER: [facility] Discharge Planning Comments: CM RECEIVED ORDER FOR INPATIENT REHAB PRESCREENING. CM MET WITH PT IN ROOM TO DISCUSS DISCHARGE PLANNING AND NEEDS. PT REPORTS LIVING AT HOME INDEPENDENTLY WITH AN ADULT FRIEND IN [place]. PT HAS A CANE WITH NO LOCAL MEDICAL EQUIPMENT PROVIDER PREFERENCE. PT REPORTS HE HAD BEEN USING THE [facility] [place] BUT DOES NOT PLAN TO USE THEM ANY LONGER. PT DOES NOT WANT TRANSFER TO THE [place] [facility]. PT REPORTS HE SEE'S DR. BARRERA PRIMARY DOCTOR AND IS NOW USING HIS MEDICARE AND MEDICAID FOR MEDICAL CARE. PT HAS NO OUTSIDE SERVICES ASSISTING IN THE HOME. CM DISCUSSED AVAILABILITY OF HOME HEALTH, REHAB SERVICES AND MEDICAL EQUIPMENT. PT WANTS REHAB AT [facility] AND REPORTS ABILITY TO PARTICIPATE IN THREE HOURS OF THERAPY PER DAY, HAS PLAN TO RETURN TO HIS FRIENDS HOME AT DISCHARGE. PT REPORTS AFTER LEAVING AGAINST MEDICAL ADVISE A COUPLE OF DAYS AGO, HE HAD A FRIEND TAKE HIM TO [place], RENTED A ROOM AND WAITED THERE FOR THE STERIODS TO GET OUT OF HIS SYSTEM; PT DID NOT FEEL BETTER AND CAME BACK TO THE HOSPITAL FOR HELP. PT REPORTS HE WILL BE TAKING TAXI TO GET HOME. CM WAITING INPATIENT REHAB PRESCREENING TO BE COMPLETED AND ADMISSION DETERMINATION FROM [facility]. Hearing Specialist: Broderick Yo DCPIA - Discharge Planning Initial Assessment Updated by RAKESH: Broderick Yo on 02/26/18 3:56 pm * Is the patient Alert and Oriented? Yes * How many steps to enter\exit or inside your home? NONE * [facility] [place] - [facility] * Pharmacy [facility] * Preadmission Environment Home with Family * ADLs Independent * Equipment Cane * Other Equipment PT HAS BEEN GETTING MEDICAL EQUIPMENT AT [facility], HAS NO LOCAL MEDICAL EQUIPMENT PROVIDER PREFERENCE * List name and contact numbers for known caregivers / representatives who currently or will assist patient after discharge: RILEY DIETZ, friend, * Verbal permission to speak to the caregivers and representatives has been obtained from the patient. No * Community resources currently utilized None * Please name any agencies selected above. NONE * Additional services required to return to the preadmission environment? Yes * Can the patient safely return to the preadmission environment? Yes * Has this patient been hospitalized within the prior 30 days at any hospital? Yes External Providers External Provider: [employer] Next Contact Date: 03/03/2018 Service Request Date: Service Type: Resolution: Reviewer: Comments: Coverage Notice Reviewer: [email or web address] Christian Yo Notice Issued Date-Time: 03/03/2018 9:55 Notice Type: IM Discharge Notice Notice Delivered To: Patient Relationship to Patient: Environmental Designer Name: Delivery Method: HAND - Hand Delivered Colette Days: Prior Verbal Notification: Recipient Understood Notice: Yes Recipient Signature: Yes Med Rec Note Co-signed by Attending: Coverage Notice Comment: Reviewer: [email or web address] Christian Yo Notice Issued Date-Time: 03/03/2018 9:55 Notice Type: Patient Choice Letter Notice Delivered To: Patient Relationship to Patient: Environmental Designer Name: Delivery Method: HAND - Hand Delivered Colette Days: Prior Verbal Notification: Recipient Understood Notice: Yes Recipient Signature: Yes Med Rec Note Co-signed by Attending: Coverage Notice Comment: A and [employer] [facility] Last DP export: 02/26/18 3:11 Patient Name: MAKENZIE DESAI Page [phone] at 1212 All edits/amendments must be made on the electronic document DICTATION DATE: 03/03/181210 RIPRAP MAN: OSMEL 03/03/181210 RPT#: [id number] DC DATE: STATUS: ADM IN [facility] [address] [place] [address] END OF REPORT
--- NOTE | ~2018-02-25 | MORECARE ---
CASE MANAGEMENT DISCHARGE SUMMARY PATIENT: MAKENZIE DESAI UNIT: [id number] ADM DATE: 02/25/18 AGE: 67 : [birth year] SEX: M ROOM/BED: D.2110 AUTHOR: СЕРГЕЙ,DOC PHYSICIAN: REFERRING PHYSICIAN: MAURI ASH MD DATE OF SERVICE: 03/03/18 Discharge Plan Patient Name: MAKENZIE DESAI Facility: [facility]:[place] : 07/23/1950 Planned Disposition: Home with Home Health Anticipated Discharge Date: 03/03/18 Discharge Date: Expected LOS: 6 Initial Reviewer: [id number] Initial Review Date: 02/26/2018 Generated: 03/03/18 2:57 pm Comments DCP- Discharge Planning Updated by [email or web address]: Broderick Yo on 03/03/18 12:[address] Patient Name: MAKENZIE DESAI Encounter No: [id number] : 07-23-1950 Primary Insurance: MEDICARE A & B Anticipated DC Date: 03-03-2018 Planned Disposition: Home with Home Health External Planned Provider: [facility] DCP follow-up note: PT NOT IN ROOM AT 0945 HOURS. CM SPOKE TO BOAT LOADER HELPER WHO REPORTED PT CAME BACK TO HIS ROOM FOR BREAKFAST BUT OTHERWISE HAS NOT BEEN IN ROOM. CM SEARCHED HOSPITAL AND FOUND PT SITTING OUT FRONT OF HOSPITAL. PT REPORTS HE IS PAYING A INTELLIGENCE DIRECTOR TO DRIVE IN TOWN AND TAKE CARE OF ERRANDS FOR HIM. PT IS WAITING FOR THE INTELLIGENCE DIRECTOR TO RETURN. CM ADVISED PT THAT HE NEEDS TO RETURN TO HIS ROOM AND THAT THE HOSPITAL CANNOT BE RESPONSIBLE FOR PT STAYING OUTSIDE AND CAUTIONED PT THAT IF HE HAS ANY NEEDS, THERE IS NO ONE TO HELP. PT STATES HE IS STAYING OUTSIDE TO GET FRESH AIR AND TO COMPLETE HIS "BUSINESS". CM MET WITH PT IN FRONT OF HOSPITAL TO DISCUSS DISCHARGE PLANNING AND NEEDS. PT HAS BEEN DECLINED BY INPATIENT REHAB. CM DISCUSSED AVAILABILITY OF SKILLED NRUSING REHAB, PT STATES HE IS NOT GOING, THAT HE IS GOING HOME, BACK TO HIS FRIENDS HOME [address]. CM ASKED ABOUT THE METHAMPHETAMINE USE IN THE HOME, PT REPORTS IT IS NO LONGER A PROBLEM AND STATES THE HOME IS SAFE. CM CAUTIONED PT THAT IF HOME HEALTH DETERMINES THE HOME NOT TO BE SAFE ENVIRONMENT, HOME HEALTH WILL CANCEL SERVICES. PT REPORTS UNDERSTANDING. PT REPORTS HE WANTS HOME HEALTH WITH [facility], CHOICE SIGNED. PT ASKED FOR [facility] TRANSPORT HOME, CM INFORMED PT THAT PT IS PAYING FOR TAXI TO DRIVE AROUND TOWN NOW AND THAT THE HOSPITAL IS NOT PAYING FOR PT'S TRANSPORTATION HOME. PT STATES HOSPITAL HAS PAID EVERY OTHER TIME HE HAS BEEN HERE. CM EXPLAINED LIMITED RESOURCES OF HOSPITAL AND ENCOURAGED PT TO DEVELOP A PERSONAL SUPPORT SYSTEM TO ASSIST IN TIMES OF NEED. CM OFFERED TO CALL MEDICAID TRANSPORT BUS, PT REFUSED. IMPORTANT MESSAGE FROM MEDICARE PROVIDED AND EXPLAINED. CM CALLED [employer], , SPOKE TO MARÍA, REFERRAL PROVIDED, PT PLACED ON SCHEDULE FOR TOMORROW AND IT MAY BE FRIDAY AT THE LATEST. CM FAXED REFERRAL AND DISCHARGE INFORMATION FAXED TO [facility] AT, . PT AGAIN NOT IN ROOM AT 1300 HOURS. CM SEARCHED HOSPITAL AND FOUND PT SITTING IN THE [place] DOWN[place]. PT REPORTS HAVING NEBULIZER AT HOME AND HAVING TWO INHALERS AND ALBUTERAL FOR THE NEBULIZER. PT ALSO REPORTS HAVING XERELTO AT HOME. PT WANT[facility] PRES[facility]IONS AT [place] [facility]. PT PLANS TO USE MEDICAID TO FILL THREE OF THE PRESCRIPTIONS AT [facility]. PT REPORTS HIS DAUGHTER IS HERE AND WILL HELP SET UP PT WITH HIS FRIEND LATER TODAY AT THE [facility] ADDRESS. PT ASKED FOR [employer] PHONE PROGRAM INFORMATION, CM PROVIDED IT. PT DENIES FURTHER NEEDS, REPORTS HAVING A FRIEND TO PICK HE AND HIS DAUGHTER UP THIS AFTERNOON FOR TRANSPORT HOME. PHYSICIAN OPHTHALMOLOGIST NURSE NOTIFIED. Broderick Yo, CASE MANAGEMENT DCP- Discharge Planning Updated by [id number]: Broderick Yo on 02/26/18 3:[address] Patient Name: MAKENZIE DESAI Admission Status: ER Accout number: [id number] Admission Date: 02-25-2018 : 07-23-1950 Admission Diagnosis:SHORTNESS OF BREATH Attending: MAURI DAUGHERTY Current LOS: 1 Anticipated DC Date: 02-27-2018 Planned Disposition: Inpatient Rehab Primary Insurance: MEDICARE A & B PLANNED EXTERNAL PROVIDER: [facility] INPATIENT REHAB Discharge Planning Comments: CM RECEIVED ORDER FOR INPATIENT REHAB PRESCREENING. CM MET WITH PT IN ROOM TO DISCUSS DISCHARGE PLANNING AND NEEDS. PT REPORTS LIVING AT HOME INDEPENDENTLY WITH AN ADULT FRIEND IN [place]. PT HAS A CANE WITH NO LOCAL MEDICAL EQUIPMENT PROVIDER PREFERENCE. PT REPORTS HE HAD BEEN USING [facility] [place] BUT DOES NOT PLAN TO USE THEM ANY LONGER. PT DOES NOT WANT TRANSFER TO THE [place] [facility]. PT REPORTS HE SEE'S DR. BARRERA PRIMARY DOCTOR AND IS NOW USING HIS MEDICARE AND MEDICAID FOR MEDICAL CARE. PT HAS NO OUTSIDE SERVICES ASSISTING IN THE HOME. CM DISCUSSED AVAILABILITY OF HOME HEALTH, REHAB SERVICES AND MEDICAL EQUIPMENT. PT WANTS REHAB AT [place] AND REPORTS ABILITY TO PARTICIPATE IN THREE HOURS OF THERAPY PER DAY, HAS PLAN TO RETURN TO HIS FRIENDS HOME AT DISCHARGE. PT REPORTS AFTER LEAVING AGAINST MEDICAL ADVISE A COUPLE OF DAYS AGO, HE HAD A FRIEND TAKE HIM TO [place], RENTED A ROOM AND WAITED THERE FOR THE STERIODS TO GET OUT OF HIS SYSTEM; PT DID NOT FEEL BETTER AND CAME BACK TO THE HOSPITAL FOR HELP. PT REPORTS HE WILL BE TAKING TAXI TO GET HOME. CM WAITING INPATIENT REHAB PRESCREENING TO BE COMPLETED AND ADMISSION DETERMINATION FROM [facility] INPATIENT REHAB. Licensed And Certified Midwife: Broderick Yo DCPIA - Discharge Planning Initial Assessment Updated by [id number]: Broderick Yo on 02/26/18 3:56 pm * Is the patient Alert and Oriented? Yes * How many steps to enter\\exit or inside your home? NONE * PCP DR[facility] [place] - [facility] NOT [facility] * Pharmacy [facility] * Preadmission Environment Home with Family * ADLs Independent * Equipment Cane * Other Equipment PT HAS BEEN GETTING MEDICAL EQUIPMENT AT [facility], HAS NO LOCAL MEDICAL EQUIPMENT PROVIDER PREFERENCE * List name and contact numbers for known caregivers / representatives who currently or will assist patient after discharge: RILEY DIETZ, friend, * Verbal permission to speak to the caregivers and representatives has been obtained from the patient. No * Community resources currently utilized None * Please name any agencies selected above. NONE * Additional services required to return to the preadmission environment? Yes * Can the patient safely return to the preadmission environment? Yes * Has this patient been hospitalized within the prior 30 days at any hospital? Yes Coverage Notice Reviewer: [id number] - Broderick Yo Notice Issued Date-Time: 03/03/2018 9:55 Notice Type: IM Discharge Notice Notice Delivered To: Patient Relationship to Patient: Video Game Repair Technician Name: Delivery Method: HAND - Hand Delivered Colette Days: Prior Verbal Notification: Recipient Understood Notice: Yes Recipient Signature: Yes Med Rec Note Co-signed by Attending: Coverage Notice Comment: Reviewer: [id number] - Broderick Yo Notice Issued Date-Time: 03/03/2018 9:55 Notice Type: Patient Choice Letter Notice Delivered To: Patient Relationship to Patient: Video Game Repair Technician Name: Delivery Method: HAND - Hand Delivered Colette Days: Prior Verbal Notification: Recipient Understood Notice: Yes Recipient Signature: Yes Med Rec Note Co-signed by Attending: Coverage Notice Comment: [facility] Last DP export: 03/03/18 11:43 Patient Name: MAKENZIE DESAI Page [id number] at 1357 All edits/amendments must be made on the electronic document DICTATION DATE: 03/03/18 1356 RETAIL ANALYST: OSMEL 03/03/18 1356 RPT#: [id number] [place] DATE: STATUS: ADM IN [facility] [address] [place] [address] END OF REPORT
--- NOTE | ~2018-02-25 | MORECARE ---
CASE MANAGEMENT DISCHARGE SUMMARY PATIENT: MAKENZIE DESAI UNIT: [id number] ADM DATE: 02/25/18 AGE: 67 : [birth year] SEX: M ROOM/BED: D.2114 AUTHOR: СЕРГЕЙ,DOC PHYSICIAN: REFERRING PHYSICIAN: MAURI ASH MD DATE OF SERVICE: 03/03/18 Discharge Plan Patient Name: MAKENZIE DESAI Facility: [facility]:[place] : 07/23/1950 Planned Disposition: Home with Home Health Anticipated Discharge Date: 03/03/18 Discharge Date: Expected LOS: 6 Initial Reviewer: [id number] Initial Review Date: 02/26/2018 Generated: 03/03/18 4:20 pm Comments DCP- Discharge Planning Updated by [id number]: Broderick Yo on 03/03/18 12:[address] Patient Name: MAKENZIE DESAI Encounter No: [id number] : 07-23-1950 Primary Insurance: MEDICARE A & B Anticipated DC Date: 03-03-2018 Planned Disposition: Home with Home Health External Planned Provider: [facility] DCP follow-up note: PT NOT IN ROOM AT 0945 HOURS. CM SPOKE TO [place] SUPERVISOR WHO REPORTED PT CAME BACK TO HIS ROOM FOR BREAKFAST BUT OTHERWISE HAS NOT BEEN IN ROOM. CM SEARCHED HOSPITAL AND FOUND PT SITTING OUT FRONT OF HOSPITAL. PT REPORTS HE IS PAYING A CLAIM ANALYST TO DRIVE IN TOWN AND TAKE CARE OF ERRANDS FOR HIM. PT IS WAITING FOR THE CLAIM ANALYST TO RETURN. CM ADVISED PT THAT HE NEEDS TO RETURN TO HIS ROOM AND THAT THE HOSPITAL CANNOT BE RESPONSIBLE FOR PT STAYING OUTSIDE AND CAUTIONED PT THAT IF HE HAS ANY NEEDS, THERE IS NO ONE TO HELP. PT STATES HE IS STAYING OUTSIDE TO GET FRESH AIR AND TO COMPLETE HIS "BUSINESS". CM MET WITH PT IN FRONT OF HOSPITAL TO DISCUSS DISCHARGE PLANNING AND NEEDS. PT HAS BEEN DECLINED BY INPATIENT REHAB. CM DISCUSSED AVAILABILITY OF SKILLED NRUSING REHAB, PT STATES HE IS NOT GOING, THAT HE IS GOING HOME, BACK TO HIS FRIENDS HOME ON [address]. CM ASKED ABOUT THE METHAMPHETAMINE USE IN THE HOME, PT REPORTS IT IS NO LONGER A PROBLEM AND STATES THE HOME IS SAFE. CM CAUTIONED PT THAT IF HOME HEALTH DETERMINES THE HOME NOT TO BE SAFE ENVIRONMENT, HOME HEALTH WILL CANCEL SERVICES. PT REPORTS UNDERSTANDING. PT REPORTS HE WANTS HOME HEALTH WITH [employer], CHOICE SIGNED. PT ASKED FOR [facility] TRANSPORT HOME, CM INFORMED PT THAT PT IS PAYING FOR TAXI TO DRIVE AROUND TOWN NOW AND THAT THE HOSPITAL IS NOT PAYING FOR PT'S TRANSPORTATION HOME. PT STATES HOSPITAL HAS PAID EVERY OTHER TIME HE HAS BEEN HERE. CM EXPLAINED LIMITED RESOURCES OF HOSPITAL AND ENCOURAGED PT TO DEVELOP A PERSONAL SUPPORT SYSTEM TO ASSIST IN TIMES OF NEED. CM OFFERED TO CALL MEDICAID TRANSPORT BUS, PT REFUSED. IMPORTANT MESSAGE FROM MEDICARE PROVIDED AND EXPLAINED. CM CALLED [facility], , SPOKE TO MARÍA, REFERRAL PROVIDED, PT PLACED ON SCHEDULE FOR TOMORROW AND IT MAY BE FRIDAY AT THE LATEST. CM FAXED REFERRAL AND DISCHARGE INFORMATION FAXED TO [employer] AT, . PT AGAIN NOT IN ROOM AT 1300 HOURS. CM SEARCHED HOSPITAL AND FOUND PT SITTING IN THE [place]. PT REPORTS HAVING NEBULIZER AT HOME AND HAVING TWO INHALERS AND ALBUTERAL FOR THE NEBULIZER. PT ALSO REPORTS HAVING XERELTO AT HOME. PT WANTS PRESCRIPTIONS AT [place] AND [facility]S. PT PLANS TO USE MEDICAID TO FILL THREE OF THE PRESCRIPTIONS AT [place]. PT REPORTS HIS DAUGHTER IS HERE AND WILL HELP SET UP PT WITH HIS FRIEND LATER TODAY AT THE [facility] ADDRESS. PT ASKED FOR [employer] PHONE PROGRAM INFORMATION, CM PROVIDED IT. PT DENIES FURTHER NEEDS, REPORTS HAVING A FRIEND TO PICK HE AND HIS DAUGHTER UP THIS AFTERNOON FOR TRANSPORT HOME. KAYAK MAKER NURSE NOTIFIED. Broderick Yo, CASE MANAGEMENT DCP- Discharge Planning Updated by [id number]: Broderick Yo on 02/26/18 3:[address] Patient Name: MAKENZIE DESAI Admission Status: ER Accout number: [id number] Admission Date: 02-25-2018 : 07-23-1950 Admission Diagnosis:SHORTNESS OF BREATH Attending: MAURI DAUGHERTY Current LOS: 1 Anticipated DC Date: 02-27-2018 Planned Disposition: Inpatient Rehab Primary Insurance: MEDICARE A & B PLANNED EXTERNAL PROVIDER: [facility] INPATIENT REHAB Discharge Planning Comments: CM RECEIVED ORDER FOR INPATIENT REHAB PRESCREENING. CM MET WITH PT IN ROOM TO DISCUSS DISCHARGE PLANNING AND NEEDS. PT REPORTS LIVING AT HOME INDEPENDENTLY WITH AN ADULT FRIEND IN [place]. PT HAS A CANE WITH NO LOCAL MEDICAL EQUIPMENT PROVIDER PREFERENCE. PT REPORTS HE HAD BEEN USING [facility] [place] BUT DOES NOT PLAN TO USE THEM ANY LONGER. PT DOES NOT WANT TRANSFER TO THE [place] [facility]. PT REPORTS HE SEE'S DR. BARRERA PRIMARY DOCTOR AND IS NOW USING HIS MEDICARE AND MEDICAID FOR MEDICAL CARE. PT HAS NO OUTSIDE SERVICES ASSISTING IN THE HOME. CM DISCUSSED AVAILABILITY OF HOME HEALTH, REHAB SERVICES AND MEDICAL EQUIPMENT. PT WANTS REHAB AT [place] AND REPORTS ABILITY TO PARTICIPATE IN THREE HOURS OF THERAPY PER DAY, HAS PLAN TO RETURN TO HIS FRIENDS HOME AT DISCHARGE. PT REPORTS AFTER LEAVING AGAINST MEDICAL ADVISE A COUPLE OF DAYS AGO, HE HAD A FRIEND TAKE HIM TO [place], RENTED A ROOM AND WAITED THERE FOR THE STERIODS TO GET OUT OF HIS SYSTEM; PT DID NOT FEEL BETTER AND CAME BACK TO THE HOSPITAL FOR HELP. PT REPORTS HE WILL BE TAKING TAXI TO GET HOME. CM WAITING INPATIENT REHAB PRESCREENING TO BE COMPLETED AND ADMISSION DETERMINATION FROM [facility] INPATIENT REHAB. Miniature Set Builder: Broderick Yo DCPIA - Discharge Planning Initial Assessment Updated by [id number]: Broderick Yo on 02/26/18 3:56 pm * Is the patient Alert and Oriented? Yes * How many steps to enter\\exit or inside your home? NONE * P[place] [facility] [place] - [facility] * Pharmacy [facility] * Preadmission Environment Home with Family * ADLs Independent * Equipment Cane * Other Equipment PT HAS BEEN GETTING MEDICAL EQUIPMENT AT [facility], HAS NO LOCAL MEDICAL EQUIPMENT PROVIDER PREFERENCE * List name and contact numbers for known caregivers / representatives who currently or will assist patient after discharge: RILEY DIETZ, friend, * Verbal permission to speak to the caregivers and representatives has been obtained from the patient. No * Community resources currently utilized None * Please name any agencies selected above. NONE * Additional services required to return to the preadmission environment? Yes * Can the patient safely return to the preadmission environment? Yes * Has this patient been hospitalized within the prior 30 days at any hospital? Yes Coverage Notice Reviewer: [id number] - Broderick Yo Notice Issued Date-Time: 03/03/2018 9:55 Notice Type: IM Discharge Notice Notice Delivered To: Patient Relationship to Patient: Womens Volleyball Coach Name: Delivery Method: HAND - Hand Delivered Colette Days: Prior Verbal Notification: Recipient Understood Notice: Yes Recipient Signature: Yes Med Rec Note Co-signed by Attending: Coverage Notice Comment: Reviewer: [id number] Christian Yo Notice Issued Date-Time: 03/03/2018 9:55 Notice Type: Patient Choice Letter Notice Delivered To: Patient Relationship to Patient: Womens Volleyball Coach Name: Delivery Method: HAND - Hand Delivered Colette Days: Prior Verbal Notification: Recipient Understood Notice: Yes Recipient Signature: Yes Med Rec Note Co-signed by Attending: Coverage Notice Comment: [facility] Last DP export: 03/03/18 12:57 Patient Name: MAKENZIE DESAI Page [phone] at 1521 All edits/amendments must be made on the electronic document DICTATION DATE: 03/03/18 1520 NUTRITIONIST PUBLIC HEALTH: OSMEL 03/03/18 1520 RPT#: [id number] [place] DATE: STATUS: ADM IN [facility] [address] [place] [address] END OF REPORT
--- NOTE | ~2018-02-25 | CN ---
PATIENT NAME:MAKENZIE CUNHA MEDICAL RECORD: [id number] : [birth year] LOCATION:D. D.2112 ADMIT DATE: 02/25/18 ACCOUNT: [id number] CONSULTING PHYSICIAN: ENRRIQUE MEZA MD REFERRING PHYSICIAN: CHAI ARRIAZA MD DATE OF CONSULTATION: 02/26/2018 CONSULT REQUESTING PHYSICIAN: Chai Arriaza MD REASON FOR CONSULTATION: Acute exacerbation of COPD. HISTORY: Mr. Cunha is a 67-year-old gentleman who was admitted with pneumonia and COPD exacerbation. The patient discharged himself AMA the other day. He now came in yesterday again with worsening shortness of breath, wheezing, and coughing. Denies any fever or any chills. No night sweats. REVIEW OF THE SYSTEMS: As in history of present illness. PAST MEDICAL HISTORY: 1. History of CVA. 2. Atrial fibrillation. 3. COPD. 4. History of DVT and PTE. 5. Gastroesophageal reflux disease. PAST SURGICAL HISTORY: 1. He had laminectomy. 2. Tonsillectomy. 3. Tympanoplasty. ALLERGIES: HE IS ALLERGIC TO NSAID, PENICILLIN, SULFA, CEPHALEXIN, ENOXAPARIN, IODINE, POLYMYXIN B, AND MEPERIDINE. MEDICATIONS: He is on Levaquin IV. His all other medication are reviewed. PERSONAL AND SOCIAL HISTORY: The patient is still everyday smoker. He is nondrinker. FAMILY HISTORY: Noncontributory. PHYSICAL EXAMINATION: GENERAL: Now, the patient is lying comfortably in bed. He is not in acute distress. VITAL SIGNS: The blood pressure is 172/78, pulse is 84, respiration 20, temperature 98.1, and SpO2 is 91% on room air. HEENT: Conjunctivae are pink. Sclerae are not icteric. NECK: Neck is supple. No JVD. CHEST: The chest excursion is minimal on both sides. There are wheezes on forceful expiration. HEART: Rhythm regular. Normal sound. No murmur. ABDOMEN: Abdomen is soft. Bowel sounds present. No hepatosplenomegaly. RECTAL: Deferred. EXTREMITIES: No cyanosis. No clubbing. No pedal edema. CENTRAL NERVOUS SYSTEM: The patient is awake and alert. There is no obvious cranial nerve abnormality. The gait was not tested. CONSULT REPORT [id number] MAKENZIE CUNHA DIAGNOSTIC DATA: Chest radiograph; there are no acute infiltrates. LABORATORY DATA: CBC; WBC 6.5, hemoglobin 14.2, hematocrit 43.9, and platelet count is 136. IMPRESSION: 1. Itdfw-zx-nzyzsol hypoxic respiratory failure. 2. Acute exacerbation of COPD. 3. Tobacco dependence syndrome. 4. Gastroesophageal reflux disease. 5. CKD. 5. History of DVT and PTE. RECOMMENDATIONS: 1. Continue albuterol/ipratropium nebulizer. 2. Brovana and budesonide nebulizer. 3. Methylprednisolone IV. 4. Levaquin IV. 5. The patient was counseled to quit smoking. 6. DVT prophylaxis. 7. GERD precaution given. Dr. Arriaza, thank you for involving me in the care of Mr. Cunha. TRANSINT:[id number] Voice Confirmation ID: [id number] DOCUMENT ID: [id number] ENRRIQUE MEZA MD CC: [id number] DICTATION DATE: 02/26/18 1546 ELECTROGALVANIZING MACHINE OPERATOR: 02/26/18 1859 ADM IN [facility] [address] [id number]
--- NOTE | ~2018-02-25 | MORECARE ---
CASE MANAGEMENT DISCHARGE SUMMARY PATIENT: MAKENZIE DESAI UNIT: [id number] ADM DATE: 02/25/18 AGE: 67 : [birth year] SEX: M ROOM/BED: D.2112 AUTHOR: СЕРГЕЙ,DOC PHYSICIAN: REFERRING PHYSICIAN: MAURI ASH MD DATE OF SERVICE: 03/03/18 Discharge Plan Patient Name: MAKENZIE DESAI [facility] [facility] 07/23/1950 Planned Disposition: Home with Home Health Anticipated Discharge Date: 03/03/18 Discharge Date: Expected LOS: 6 Initial Reviewer: [email or web address] Initial Review Date: 02/26/2018 Generated: 03/03/18 1:43 pm Comments DCP- Discharge Planning Updated by [id number]: Broderick Yo on 02/26/18 3:[address] Patient Name: MAKENZIE DESAI Admission Status: ER Accout number: [id number] Admission Date: 02-25-2018 : 07-23-1950 Admission Diagnosis:SHORTNESS OF BREATH Attending: MAURI DAUGHERTY Current LOS: 1 Anticipated DC Date: 02-27-2018 Planned Disposition: Inpatient Rehab Primary Insurance: MEDICARE A & B PLANNED EXTERNAL PROVIDER: [facility] INPATIENT REHAB Discharge Planning Comments: CM RECEIVED ORDER FOR INPATIENT REHAB PRESCREENING. CM MET WITH PT IN ROOM TO DISCUSS DISCHARGE PLANNING AND NEEDS. PT REPORTS LIVING AT HOME INDEPENDENTLY WITH AN ADULT FRIEND IN [place]. PT HAS A CANE WITH NO LOCAL MEDICAL EQUIPMENT PROVIDER PREFERENCE. PT REPORTS HE HAD BEEN USING THE [email or web address] [facility] IN [place] BUT DOES NOT PLAN TO USE THEM ANY LONGER. PT DOES NOT WANT TRANSFER TO THE [place] [facility]. PT REPORTS HE SEE'S DR. BARRERA PRIMARY DOCTOR AND IS NOW USING HIS MEDICARE AND MEDICAID FOR MEDICAL CARE. PT HAS NO OUTSIDE SERVICES ASSISTING IN THE HOME. CM DISCUSSED AVAILABILITY OF HOME HEALTH, REHAB SERVICES AND MEDICAL EQUIPMENT. PT WANTS REHAB AT [place] AND REPORTS ABILITY TO PARTICIPATE IN THREE HOURS OF THERAPY PER DAY, HAS PLAN TO RETURN TO HIS FRIENDS HOME AT DISCHARGE. PT REPORTS AFTER LEAVING AGAINST MEDICAL ADVISE A COUPLE OF DAYS AGO, HE HAD A FRIEND TAKE HIM TO [place], RENTED A ROOM AND WAITED THERE FOR THE STERIODS TO GET OUT OF HIS SYSTEM; PT DID NOT FEEL BETTER AND CAME BACK TO THE HOSPITAL FOR HELP. PT REPORTS HE WILL BE TAKING TAXI TO GET HOME. CM WAITING INPATIENT REHAB PRESCREENING TO BE COMPLETED AND ADMISSION DETERMINATION FROM [facility] INPATIENT REHAB. Shoe Reconditioner: Broderick Yo DCPIA - Discharge Planning Initial Assessment Updated by RAKESH: Broderick Yo on 02/26/18 3:56 pm * Is the patient Alert and Oriented? Yes * How many steps to enter\exit or inside your home? NONE * [facility] [place] - [facility] * Pharmacy [facility] * Preadmission Environment Home with Family * ADLs Independent * Equipment Cane * Other Equipment PT HAS BEEN GETTING MEDICAL EQUIPMENT AT [facility], HAS NO LOCAL MEDICAL EQUIPMENT PROVIDER PREFERENCE * List name and contact numbers for known caregivers / representatives who currently or will assist patient after discharge: RILEY DIETZ, friend, * Verbal permission to speak to the caregivers and representatives has been obtained from the patient. No * Community resources currently utilized None * Please name any agencies selected above. NONE * Additional services required to return to the preadmission environment? Yes * Can the patient safely return to the preadmission environment? Yes * Has this patient been hospitalized within the prior 30 days at any hospital? Yes Coverage Notice Reviewer: [email or web address] Christian Yo Notice Issued Date-Time: 03/03/2018 9:55 Notice Type: IM Discharge Notice Notice Delivered To: Patient Relationship to Patient: Psychometrician Name: Delivery Method: HAND - Hand Delivered Colette Days: Prior Verbal Notification: Recipient Understood Notice: Yes Recipient Signature: Yes Med Rec Note Co-signed by Attending: Coverage Notice Comment: Reviewer: [id number] Christian Yo Notice Issued Date-Time: 03/03/2018 9:55 Notice Type: Patient Choice Letter Notice Delivered To: Patient Relationship to Patient: Psychometrician Name: Delivery Method: HAND - Hand Delivered Colette Days: Prior Verbal Notification: Recipient Understood Notice: Yes Recipient Signature: Yes Med Rec Note Co-signed by Attending: Coverage Notice Comment: [facility] Last DP export: 03/03/18 11:11 Patient Name: MKAENZIE DESAI Page 43285 at 1243 All edits/amendments must be made on the electronic document DICTATION DATE: 03/03/181242 ROOFING TECHNICIAN: OSMEL 03/03/18 1243 RPT#: [id number] [place] DATE: STATUS: ADM IN [facility] [address] [place] [address] END OF REPORT
--- NOTE | ~2018-02-25 | MORECARE ---
CASE MANAGEMENT DISCHARGE SUMMARY PATIENT: MAKENZIE DESAI UNIT: [id number] ADM DATE: 02/25/18 AGE: 67 : [birth year] SEX: M ROOM/BED: D.2112 AUTHOR: JEWEL RUSHING PHYSICIAN: REFERRING PHYSICIAN: MAURI ASH MD DATE OF SERVICE: 02/26/18 Discharge Plan Patient Name: MAKENZIE DESAI [facility] [facility] 07/23/1950 Planned Disposition: Inpatient Rehab Anticipated Discharge Date: 02/27/18 Discharge Date: Expected LOS: 2 Initial Reviewer: [id number] Initial Review Date: 02/26/2018 Generated: 02/26/18 5:11 pm Comments DCP- Discharge Planning Updated by [email or web address]: Broderick Yo on 02/26/18 3:[address] Patient Name: MAKENZIE DESAI Admission Status: ER Accout number: [id number] Admission Date: 02-25-2018 : 07-23-1950 Admission Diagnosis:SHORTNESS OF BREATH Attending: MAURI DAUGHERTY Current LOS: 1 Anticipated DC Date: 02-27-2018 Planned Disposition: Inpatient Rehab Primary Insurance: MEDICARE A & B PLANNED EXTERNAL PROVIDER: [facility] Discharge Planning Comments: CM RECEIVED ORDER FOR INPATIENT REHAB PRESCREENING. CM MET WITH PT IN ROOM TO DISCUSS DISCHARGE PLANNING AND NEEDS. PT REPORTS LIVING AT HOME INDEPENDENTLY WITH AN ADULT FRIEND IN [place]. PT HAS A CANE WITH NO LOCAL MEDICAL EQUIPMENT PROVIDER PREFERENCE. PT REPORTS HE HAD BEEN USING THE [facility] IN [place] BUT DOES NOT PLAN TO USE THEM ANY LONGER. PT DOES NOT WANT [facility]. PT REPORTS HE SEE'S DR. BARRERA PRIMARY DOCTOR AND IS NOW USING HIS MEDICARE AND MEDICAID FOR MEDICAL CARE. PT HAS NO OUTSIDE SERVICES ASSISTING IN THE HOME. CM DISCUSSED AVAILABILITY OF HOME HEALTH, REHAB SERVICES AND MEDICAL EQUIPMENT. PT WANTS REHAB AT [place] [place] AND REPORTS ABILITY TO PARTICIPATE IN THREE HOURS OF THERAPY PER DAY, HAS PLAN TO RETURN TO HIS FRIENDS HOME AT DISCHARGE. PT REPORTS AFTER LEAVING AGAINST [facility]ICAL [facility] A COUPLE OF DAYS AGO, HE HAD A FRIEND TAKE HIM TO [place], RENTED A ROOM AND WAITED THERE FOR THE STERIODS TO GET OUT OF HIS SYSTEM; PT DID NOT FEEL BETTER AND CAME BACK TO THE HOSPITAL FOR HELP. PT REPORTS HE WILL BE TAKING TAXI TO GET HOME. CM WAITING INPATIENT REHAB PRESCREENING TO BE COMPLETED AND ADMISSION DETERMINATION FROM [facility]. Operations Support Professionals: Broderick Yo DCPIA - Discharge Planning Initial Assessment Updated by [id number]: Broderick Yo on 02/26/18 3:56 pm * Is the patient Alert and Oriented? Yes * How many steps to enter\exit or inside your home? NONE * [facility] [place] - [facility] * Pharmacy [facility] * Preadmission Environment Home with Family * ADLs Independent * Equipment Cane * Other Equipment PT HAS BEEN GETTING MEDICAL EQUIPMENT AT [facility], HAS NO LOCAL MEDICAL EQUIPMENT PROVIDER PREFERENCE * List name and contact numbers for known caregivers / representatives who currently or will assist patient after discharge: RILEY DIETZ, friend, * Verbal permission to speak to the caregivers and representatives has been obtained from the patient. No * Community resources currently utilized None * Please name any agencies selected above. NONE * Additional services required to return to the preadmission environment? Yes * Can the patient safely return to the preadmission environment? Yes * Has this patient been hospitalized within the prior 30 days at any hospital? Yes Last DP export: 02/26/18 3:01 Patient Name: MAKENZIE DESAI Page 10093 at 1611 All edits/amendments must be made on the electronic document DICTATION DATE: 02/26/181610 COKE CRANE OPERATOR: OSMEL 02/26/181610 RPT#: [id number] DC DATE: STATUS: ADM IN [facility] [address] [place] [address] END OF REPORT
--- NOTE | ~2018-02-25 | MORECARE ---
CASE MANAGEMENT DISCHARGE SUMMARY PATIENT: MAKENZIE DESAI UNIT: [id number] ADM DATE: 02/25/18 AGE: 67 : [birth year] SEX: M ROOM/BED: D.2112 AUTHOR: JEWEL RUSHING PHYSICIAN: REFERRING PHYSICIAN: MAURI ASH MD DATE OF SERVICE: 02/26/18 Discharge Plan Patient Name: MAKENZIE DESAI [facility] : 07/23/1950 Planned Disposition: Inpatient Rehab Anticipated Discharge Date: 02/27/18 Discharge Date: Expected LOS: 2 Initial Reviewer: [email or web address] Initial Review Date: 02/26/2018 Generated: 02/26/18 5:01 pm DCPIA - Discharge Planning Initial Assessment Updated by [email or web address]: Broderick Yo on 02/26/18 3:56 pm * Is the patient Alert and Oriented? Yes * How many steps to enter\exit or inside your home? NONE * [facility] [place] - [facility] * Pharmacy [facility] * Preadmission Environment Home with Family * ADLs Independent * Equipment Cane * Other Equipment PT HAS BEEN GETTING MEDICAL EQUIPMENT AT [facility], HAS NO LOCAL MEDICAL EQUIPMENT PROVIDER PREFERENCE * List name and contact numbers for known caregivers / representatives who currently or will assist patient after discharge: RILEY DIETZ, friend, * Verbal permission to speak to the caregivers and representatives has been obtained from the patient. No * Community resources currently utilized None * Please name any agencies selected above. NONE * Additional services required to return to the preadmission environment? Yes * Can the patient safely return to the preadmission environment? Yes * Has this patient been hospitalized within the prior 30 days at any hospital? Yes Patient Name: MAKENZIE DESAI Page 48284 at 1601 All edits/amendments must be made on the electronic document DICTATION DATE: 02/26/18 1601 FISHERIES ENFORCEMENT OFFICER: OSMEL 02/26/18 1601 RPT#: [id number] DC DATE: STATUS: ADM IN [facility] [address] [place] [address] END OF REPORT
[~2018-02-25 10:20] MED LIST changes: +HYDROCODON-ACE1 EAC7 PO; +LISINOPRIL5 MG PO; +LYRICA100 MG PO
[2018-02-25] MEDS ORDERED: VENTOLIN HFA18 GM INH (10:32)
[2018-02-25 11:07] LABS: BASOPHILS 0.1 % (0-2); EOSINOPHILS 1.3 % (0-7); HEMOGLOBIN 13.6 g/dL (13.5-17.5); IMMATURE GRANULOCYTES 3.3 % (0-5); LYMPHOCYTES 14.9 % (15-50); MCH 29.6 pg (26.0-34.0); MCHC 31.6 g/dL (31.0-37.0); MCV 93.7 fL (80.0-100.0); MONOCYTES 9.1 % (2-11); NEUTROPHILS 71.3 % (40-80); PLATELET COUNT 178 10x3/uL (130-400); RBC 4.59 10x6/uL (4.20-6.10); RDW 16.6 % (11.5-14.5); WBC 6.7 10x3/uL (4.8-10.8)
[2018-02-25 11:14] LABS: APTT 20.9 SECONDS (22.8-39.4); INR 0.97 (0.85-1.17); PROTIME 12.4 SECONDS (11.6-15.0)
[2018-02-25 11:16] LABS: ALBUMIN 1.4 g/dL (3.4-5.0); ALKALINE PHOSPHATASE 98 U/L (46-116); ALT (SGPT) 87 U/L (10-68); BILIRUBIN - TOTAL 0.15 mg/dL (0.2-1.3); CALC OSMOLALITY 302 mosm/kg (275-300); CALCIUM 7.4 mg/dL (8.5-10.1); CARBON DIOXIDE 31.5 mmol/L (21.0-32.0); CHLORIDE - SERUM 114 mmol/L (98-107); CREATININE - SERUM 0.9 mg/dL (0.6-1.3); POTASSIUM - SERUM 3.9 mmol/L (3.5-5.1); PROTEIN - SERUM 5.3 g/dL (6.4-8.2); SODIUM 149 mmol/L (136-145); UREA NITROGEN 29 mg/dL (7-18); eGFR NON AFRICAN AMERICAN 90 mL/min (90-120)
[2018-02-25 11:19] LABS: GLUCOSE 123 mg/dL (74-106)
[2018-02-25 11:33] LABS: CREATINE KINASE 268 UL (21-232); PRO BNP 2458 pg/mL (0-125)
[2018-02-25 11:37] LABS: TROPONIN-I 0.298 ng/mL (0.000-0.060)
[2018-02-25 17:29] VITALS: BP 147/92
[2018-02-25 19:00] VITALS: BP 169/80
[2018-02-26] VITALS: BP 176/103
[2018-02-26 05:02] VITALS: BP 151/83
[2018-02-26 06:21] LABS: BASOPHILS 0.2 % (0-2); EOSINOPHILS 0 % (0-7); HEMATOCRIT 43.9 % (42.0-54.0); HEMOGLOBIN 14.2 g/dL (13.5-17.5); LYMPHOCYTES 6.9 % (15-50); MCH 29.8 pg (26.0-34.0); MCHC 32.3 g/dL (31.0-37.0); MEAN PLATELET VOLUME 10.4 fL (7.4-10.4); MONOCYTES 5.9 % (2-11); RBC 4.77 10x6/uL (4.20-6.10); RDW 16.1 % (11.5-14.5); WBC 6.5 10x3/uL (4.8-10.8)
[2018-02-26 06:25] LABS: PLATELET COUNT 136 10x3/uL (130-400)
[2018-02-26 06:56] LABS: ALBUMIN 1.4 g/dL (3.4-5.0); ALKALINE PHOSPHATASE 91 U/L (46-116); ALT (SGPT) 79 U/L (10-68); BILIRUBIN - TOTAL 0.19 mg/dL (0.2-1.3); CALC OSMOLALITY 291 mosm/kg (275-300); CALCIUM 7.2 mg/dL (8.5-10.1); CARBON DIOXIDE 31.9 mmol/L (21.0-32.0); CHLORIDE - SERUM 105 mmol/L (98-107); CREATININE - SERUM 0.9 mg/dL (0.6-1.3); GLUCOSE 113 mg/dL (74-106); PROTEIN - SERUM 5.6 g/dL (6.4-8.2); SODIUM 143 mmol/L (136-145); UREA NITROGEN 29 mg/dL (7-18); eGFR NON AFRICAN AMERICAN 90 mL/min (90-120)
[2018-02-26 06:58] LABS: POTASSIUM - SERUM 4.9 mmol/L (3.5-5.1)
[2018-02-26 08:07] VITALS: BP 188/91
[2018-02-26 11:44] VITALS: BP 160/88
[2018-02-26 13:52] VITALS: Ht 182.9 cm; Wt 118.2 kg
[2018-02-26 14:57] VITALS: BP 172/78
[2018-02-26 20:00] VITALS: BP 166/83
[2018-02-27 04:00] VITALS: BP 172/95
[2018-02-27 05:29] LABS: ALBUMIN 1.3 g/dL (3.4-5.0); ALKALINE PHOSPHATASE 85 U/L (46-116); BILIRUBIN - TOTAL 0.29 mg/dL (0.2-1.3); CALC OSMOLALITY 290 mosm/kg (275-300); CARBON DIOXIDE 30.6 mmol/L (21.0-32.0); CHLORIDE - SERUM 107 mmol/L (98-107); CREATININE - SERUM 0.9 mg/dL (0.6-1.3); GLUCOSE 93 mg/dL (74-106); MAGNESIUM - SERUM 1.8 mg/dL (1.8-2.4); POTASSIUM - SERUM 4.9 mmol/L (3.5-5.1); PROTEIN - SERUM 5.2 g/dL (6.4-8.2); SODIUM 142 mmol/L (136-145); UREA NITROGEN 34 mg/dL (7-18); eGFR NON AFRICAN AMERICAN 90 mL/min (90-120)
[2018-02-27 05:30] LABS: ALT (SGPT) 58 U/L (10-68)
[2018-02-27 05:41] LABS: BASOPHILS 0.2 % (0-2); EOSINOPHILS 0.7 % (0-7); HEMATOCRIT 42.5 % (42.0-54.0); HEMOGLOBIN 13.9 g/dL (13.5-17.5); IMMATURE GRANULOCYTES 4.3 % (0-5); LYMPHOCYTES 20.9 % (15-50); MCH 29.8 pg (26.0-34.0); MCHC 32.7 g/dL (31.0-37.0); MCV 91.2 fL (80.0-100.0); MEAN PLATELET VOLUME 10.9 fL (7.4-10.4); NEUTROPHILS 64.9 % (40-80); RBC 4.66 10x6/uL (4.20-6.10); RDW 16.5 % (11.5-14.5); WBC 8.1 10x3/uL (4.8-10.8)
[2018-02-27 05:42] LABS: PLATELET COUNT 171 10x3/uL (130-400)
[2018-02-27 08:00] VITALS: BP 176/89
[2018-02-27 11:42] VITALS: BP 178/83
[2018-02-27 17:55] VITALS: BP 166/76
[2018-02-27 18:04] VITALS: BP 133/67
[2018-02-27 23:55] VITALS: BP 171/86
[2018-02-28 03:45] VITALS: BP 155/76
[2018-02-28 08:26] VITALS: BP 161/57
[2018-02-28 11:11] VITALS: BP 169/70
[2018-02-28 15:07] VITALS: BP 151/81
[2018-02-28 17:00] VITALS: BP 134/47
[2018-03-01] VITALS: BP 152/71
[2018-03-01 05:37] VITALS: BP 140/68
[2018-03-01 06:01] LABS: BASOPHILS 0.2 % (0-2); EOSINOPHILS 2.4 % (0-7); HEMATOCRIT 42.3 % (42.0-54.0); HEMOGLOBIN 13.7 g/dL (13.5-17.5); LYMPHOCYTES 14.6 % (15-50); MCHC 32.4 g/dL (31.0-37.0); MCV 92.8 fL (80.0-100.0); MEAN PLATELET VOLUME 11.3 fL (7.4-10.4); MONOCYTES 10.3 % (2-11); NEUTROPHILS 64.5 % (40-80); PLATELET COUNT 175 10x3/uL (130-400); RBC 4.56 10x6/uL (4.20-6.10); RDW 16.5 % (11.5-14.5)
[2018-03-01 06:09] LABS: WBC 11.1 10x3/uL (4.8-10.8)
[2018-03-01 06:35] LABS: ALBUMIN 1.5 g/dL (3.4-5.0); ALKALINE PHOSPHATASE 111 U/L (46-116); ALT (SGPT) 67 U/L (10-68); BILIRUBIN - TOTAL 0.14 mg/dL (0.2-1.3); CALC OSMOLALITY 284 mosm/kg (275-300); CALCIUM 8.4 mg/dL (8.5-10.1); CARBON DIOXIDE 31.4 mmol/L (21.0-32.0); CHLORIDE - SERUM 105 mmol/L (98-107); GLUCOSE 111 mg/dL (74-106); MAGNESIUM - SERUM 1.7 mg/dL (1.8-2.4); POTASSIUM - SERUM 4.8 mmol/L (3.5-5.1); PROTEIN - SERUM 5.3 g/dL (6.4-8.2); SODIUM 140 mmol/L (136-145); UREA NITROGEN 27 mg/dL (7-18); eGFR NON AFRICAN AMERICAN 79 mL/min (90-120)
[2018-03-01 17:00] VITALS: BP 149/69
[2018-03-02] VITALS: BP 141/63
[2018-03-02 05:51] VITALS: BP 141/80
[2018-03-02 06:03] LABS: BASOPHILS 0.2 % (0-2); EOSINOPHILS 2.1 % (0-7); HEMATOCRIT 39.6 % (42.0-54.0); HEMOGLOBIN 12.8 g/dL (13.5-17.5); IMMATURE GRANULOCYTES 6.1 % (0-5); LYMPHOCYTES 11.9 % (15-50); MCH 29.9 pg (26.0-34.0); MCHC 32.3 g/dL (31.0-37.0); MCV 92.5 fL (80.0-100.0); MEAN PLATELET VOLUME 10.9 fL (7.4-10.4); MONOCYTES 9.4 % (2-11); NEUTROPHILS 70.3 % (40-80); PLATELET COUNT 160 10x3/uL (130-400); RBC 4.28 10x6/uL (4.20-6.10); RDW 16.6 % (11.5-14.5); WBC 13.2 10x3/uL (4.8-10.8)
[2018-03-02 06:23] LABS: ALBUMIN 1.3 g/dL (3.4-5.0); ALKALINE PHOSPHATASE 100 U/L (46-116); ALT (SGPT) 56 U/L (10-68); BILIRUBIN - TOTAL 0.24 mg/dL (0.2-1.3); CALC OSMOLALITY 278 mosm/kg (275-300); CALCIUM 8.1 mg/dL (8.5-10.1); CHLORIDE - SERUM 102 mmol/L (98-107); CREATININE - SERUM 0.8 mg/dL (0.6-1.3); GLUCOSE 103 mg/dL (74-106); MAGNESIUM - SERUM 1.5 mg/dL (1.8-2.4); PROTEIN - SERUM 5.2 g/dL (6.4-8.2); SODIUM 137 mmol/L (136-145); UREA NITROGEN 26 mg/dL (7-18); eGFR NON AFRICAN AMERICAN > 90 mL/min (90-120)
[2018-03-02 06:24] LABS: POTASSIUM - SERUM 4.7 mmol/L (3.5-5.1)
[2018-03-02 08:58] VITALS: BP 135/60
[2018-03-02 11:39] VITALS: BP 147/66
[2018-03-02 15:33] VITALS: BP 142/65
[2018-03-03 05:37] LABS: BASOPHILS 0.2 % (0-2); EOSINOPHILS 1.2 % (0-7); HEMATOCRIT 38.5 % (42.0-54.0); HEMOGLOBIN 12.4 g/dL (13.5-17.5); IMMATURE GRANULOCYTES 6.3 % (0-5); LYMPHOCYTES 11.6 % (15-50); MCH 29.7 pg (26.0-34.0); MCHC 32.2 g/dL (31.0-37.0); MCV 92.1 fL (80.0-100.0); MEAN PLATELET VOLUME 11.2 fL (7.4-10.4); MONOCYTES 11.2 % (2-11); NEUTROPHILS 69.5 % (40-80); PLATELET COUNT 158 10x3/uL (130-400); RBC 4.18 10x6/uL (4.20-6.10); RDW 16.8 % (11.5-14.5); WBC 12.1 10x3/uL (4.8-10.8)
[2018-03-03 05:48] LABS: ALBUMIN 1.4 g/dL (3.4-5.0); ANION GAP 11.1 mmol/L (8-16); BILIRUBIN - TOTAL 0.16 mg/dL (0.2-1.3); CALCIUM 8.2 mg/dL (8.5-10.1); CARBON DIOXIDE 29.7 mmol/L (21.0-32.0); MAGNESIUM - SERUM 1.7 mg/dL (1.8-2.4); POTASSIUM - SERUM 4.8 mmol/L (3.5-5.1); PROTEIN - SERUM 5.2 g/dL (6.4-8.2)
[2018-03-03 05:54] LABS: CREATININE - SERUM 1.3 mg/dL (0.6-1.3)
[2018-03-03 08:13] VITALS: BP 167/77
[2018-03-03] MEDS ORDERED: LEVAQUIN750 MG PO (12:13)
[2018-03-03] MEDS ORDERED: MUCINEX600 MG PO (12:14)
[2018-03-03] MEDS ORDERED: NORCO-10 PO (12:14)
[2018-03-03] MEDS ORDERED: PROTONIX40 MG PO (12:15)
[2018-03-03] MEDS ORDERED: PREDNISONE10 MG PO (12:17)
[2018-03-03] MEDS ORDERED: IPRAT-ALBUT 0.5-3 ML INH (13:24)
[2018-03-03] MEDS ORDERED: BROVANA15 MCG/2 M INH (13:24)
== END 2018-03-03 16:06 | disposition home health service (06) | DRG 190 ==
LOC: D.ER 10:20 → D.M2 13:07 → D.EDHOLD 13:07 → D.M2 15:36
PROVIDERS: Family Medicine; Family Medicine Adult Medicine
DX: J44.1 Chronic obstructive pulmonary disease with (acute) exacerbation (principal); E43 Unspecified severe protein-calorie malnutrition; J15.6 Pneumonia due to other Gram-negative bacteria; J15.212 Pneumonia due to Methicillin resistant Staphylococcus aureus; J69.0 Pneumonitis due to inhalation of food and vomit; I82.502 Chronic embolism and thrombosis of unspecified deep veins of left lower extremity; F17.213 Nicotine dependence, cigarettes, with withdrawal; J98.11 Atelectasis; I12.9 Hypertensive chronic kidney disease with stage 1 through stage 4 chronic kidney disease, or unspecified chronic kidney disease; N18.9 Chronic kidney disease, unspecified; I73.9 Peripheral vascular disease, unspecified; I87.8 Other specified disorders of veins; I48.91 Unspecified atrial fibrillation; Z79.01 Long term (current) use of anticoagulants; K21.9 Gastro-esophageal reflux disease without esophagitis; Z68.31 Body mass index [BMI] 31.0-31.9, adult; D64.9 Anemia, unspecified; G47.33 Obstructive sleep apnea (adult) (pediatric); Z86.73 Personal history of transient ischemic attack (TIA), and cerebral infarction without residual deficits; D50.9 Iron deficiency anemia, unspecified

== ENCOUNTER 2018-03-12 21:28 | Inpatient (IN) | payer MEDICARE ==
[~2018-03-12] VITALS: Ht 182.9 cm; Wt 99.8 kg
[~2018-03-12 21:28] MED LIST changes: +IPRAT-ALBUT 0.5-3 ML INH; +NORCO-10 PO; +VENTOLIN HFA18 GM INH
[2018-03-12 22:19] LABS: BASOPHILS 0.3 % (0-2); HEMATOCRIT 40.6 % (42.0-54.0); HEMOGLOBIN 13.6 g/dL (13.5-17.5); IMMATURE GRANULOCYTES 0.4 % (0-5); MCH 29.8 pg (26.0-34.0); MCHC 33.5 g/dL (31.0-37.0); MCV 88.8 fL (80.0-100.0); MONOCYTES 12.8 % (2-11); NEUTROPHILS 71.5 % (40-80); RBC 4.57 10x6/uL (4.20-6.10); RDW 15.6 % (11.5-14.5); WBC 7.6 10x3/uL (4.8-10.8)
[2018-03-12 22:23] LABS: APTT 26.8 SECONDS (22.8-39.4); INR 1.05 (0.85-1.17); PROTIME 13.2 SECONDS (11.6-15.0)
[2018-03-12 22:24] LABS: PLATELET COUNT 216 10x3/uL (130-400)
[2018-03-12 22:35] LABS: ALBUMIN 1.2 g/dL (3.4-5.0); ALKALINE PHOSPHATASE 97 U/L (46-116); ALT (SGPT) 19 U/L (10-68); BILIRUBIN - TOTAL 0.28 mg/dL (0.2-1.3); CALC OSMOLALITY 287 mosm/kg (275-300); CALCIUM 7.9 mg/dL (8.5-10.1); CARBON DIOXIDE 24.3 mmol/L (21.0-32.0); CHLORIDE - SERUM 110 mmol/L (98-107); GLUCOSE 92 mg/dL (74-106); POTASSIUM - SERUM 3.7 mmol/L (3.5-5.1); PROTEIN - SERUM 6.1 g/dL (6.4-8.2); SODIUM 144 mmol/L (136-145); UREA NITROGEN 15 mg/dL (7-18); eGFR NON AFRICAN AMERICAN 79 mL/min (90-120)
[2018-03-12 22:50] LABS: CKMB 1.8 U/L (0.0-3.6); CREATINE KINASE 78 UL (21-232); PRO BNP 4758 pg/mL (0-125); TROPONIN-I 0.053 ng/mL (0.000-0.060)
[2018-03-12 23:30] VITALS: BP 143/83
[2018-03-12 23:55] LABS: APPEARANCE CLEAR (CLEAR); BACTERIA NONE SEEN /hpf (NONE SEEN); BILIRUBIN NEGATIVE (NEGATIVE); COLOR YELLOW (YELLOW); EPITHELIAL CELLS RARE /hpf (0-5); GLUCOSE NEGATIVE (NEGATIVE); KETONE NEGATIVE (NEGATIVE); NITRITE NEGATIVE (NEGATIVE); PROTEIN 1+ mg/dL (NEGATIVE); RED CELLS - URINE 0-5 /hpf (0-5); SPECIFIC GRAVITY 1.015 (1.005-1.020); UROBILINOGEN NORMAL (NORMAL); WHITE CELLS - URINE 0-5 /hpf (0-5)
[2018-03-13] VITALS (8 sets, daily range): BP systolic 129–160; BP diastolic 65–86; Ht 182.9 cm; Wt 99.8 kg
--- NOTE | 2018-03-13 14:48 | MORECARE ---
CASE MANAGEMENT DISCHARGE SUMMARY PATIENT: MAKENZIE DESAI UNIT: [id number] ADM DATE: 03/12/18 AGE: 67 : [birth year] SEX: M ROOM/BED: D.2140 AUTHOR: JEWEL RUSHING PHYSICIAN: REFERRING PHYSICIAN: LIVIER MCCLOUD MD DATE OF SERVICE: 03/13/18 Discharge Plan Patient Name: MAKENZIE DESAI [facility] : 07/23/1950 Planned Disposition: Senior Care Facility Anticipated Discharge Date: 03/16/18 Discharge Date: Expected LOS: 4 Initial Reviewer: [id number] Initial Review Date: 03/13/2018 Generated: 03/13/18 3:48 pm Patient Name: MAKENZIE DESAI Page 02749 at 1448 All edits/amendments must be made on the electronic document DICTATION DATE: 03/13/181447 AIRPLANE PILOT HELPER: OSMEL 03/13/18 1448 RPT#: [id number] DC DATE: STATUS: ADM IN [facility] [address] [place] [address] END OF REPORT
--- NOTE | 2018-03-13 14:58 | MORECARE ---
CASE MANAGEMENT DISCHARGE SUMMARY PATIENT: MAKENZIE DESAI UNIT: [id number] ADM DATE: 03/12/18 AGE: 67 : [birth year] SEX: M ROOM/BED: D.2140 AUTHOR: JEWEL RUSHING PHYSICIAN: REFERRING PHYSICIAN: LIVIER MCCLOUD MD DATE OF SERVICE: 03/13/18 Discharge Plan Patient Name: MAKENZIE DESAI [facility]:[place] : 07/23/1950 Planned Disposition: Snf Facility Anticipated Discharge Date: 03/16/18 Discharge Date: Expected LOS: 4 Initial Reviewer: [id number] Initial Review Date: 03/13/2018 Generated: 03/13/18 3:57 pm DCPIA - Discharge Planning Initial Assessment Updated by [email or web address]: Broderick Yo on 03/13/18 2:50 pm * Is the patient Alert and Oriented? Yes * How many steps to enter\exit or inside your home? NONE * PCP DR. BARRERA * Pharmacy [facility] [place] [facility] * Preadmission Environment Home with Family * ADLs Independent * Equipment Cane * Other Equipment [facility] - MEDICAL EQUIPMENT PROVIDER * List name and contact numbers for known caregivers / representatives who currently or will assist patient after discharge: RILEY DIETZ, FRIEND, * Verbal permission to speak to the caregivers and representatives has been obtained from the patient. No * Community resources currently utilized None * Please name any agencies selected above. PT HAD BEEN SET UP WITH [employer], THEY CALLED PT ON THE PHONE, HE DID NOT CALL THEM BACK, THEY CAME OUT TO THE HOME AND WERE SENT AWAY BY ROOMMATE WHILE PT WAS SLEEPING. * Additional services required to return to the preadmission environment? Yes * Can the patient safely return to the preadmission environment? Yes * Has this patient been hospitalized within the prior 30 days at any hospital? Yes Last DP export: 03/13/18 1:48 Patient Name: MAKENZIE DESAI Page 70786 at 8703 All edits/amendments must be made on the electronic document DICTATION DATE: 03/13/18 4249 DINING SERVICE SUPERVISOR: OSMEL 03/13/18 5677 RPT#: [id number] DC DATE: STATUS: ADM IN [facility] [address] [place] [address] END OF REPORT
--- NOTE | 2018-03-13 15:07 | MORECARE ---
CASE MANAGEMENT DISCHARGE SUMMARY PATIENT: MAKENZIE DESAI UNIT: [id number] ADM DATE: 03/12/18 AGE: 67 : [birth year] SEX: M ROOM/BED: D.2140 AUTHOR: СЕРГЕЙ,DOC PHYSICIAN: REFERRING PHYSICIAN: LIVIER MCCLOUD MD DATE OF SERVICE: 03/13/18 Discharge Plan Patient Name: MAKENZIE DESAI Facility: [facility]:[place] : 07/23/1950 Planned Disposition: Detention Facility Anticipated Discharge Date: 03/16/18 Discharge Date: Expected LOS: 4 Initial Reviewer: [email or web address] Initial Review Date: 03/13/2018 Generated: 03/13/18 4:06 pm DCP- Discharge Planning Updated by [email or web address]: Broderick Yo on 03/13/18 2:[address] Patient Name: MAKENZIE DESAI Encounter No: [id number] : 07-23-1950 Primary Insurance: MEDICARE A & B Anticipated DC Date: 03-16-2018 Planned Disposition: Detention Facility External Planned Provider: [facility], MEDICARE REHAB BED DISCHARGE PLANNING COMMENTS: CM RECEIVED ORDER FOR INPATIENT REHAB PRESCREENING. CM RECEIVED MESSAGE FROM [facility], THEY WILL NOT ACCEPT PT DUE TO HISTORY OF NON COMPLIANCE. CM MET WITH PT IN ROOM TO DISCUSS DISCHARGE PLANNING AND NEEDS. PT REPORTS LIVING AT HOME INDEPENDENTLY WITH HIS ROOMMATE; ALSO IN THE HOME AT TIMES IS PT'S ADULT DAUGHTER. PT HAS A CANE FROM THE [place] AND NO MEDICAL EQUIPMENT PROVIDER PREFERENCE. PT HAS NO OUTSIDE SERVICES ASSISTING IN THE HOME. PT STATES THAT [facility] CALLED HIM AND HE DID NOT CALL THEM BACK, THEY CAME OUT AND WHILE PT WAS SLEEPING, HIS ROOMMATE SENT THEM AWAY. PT REPORTS HIS ABILITY TO WALK HAS DECREASED SIGNIFICANTLY AND HE IS IN THE HOSPITAL TO "GET MY LEGS UNDER CONTROL". PT REPORTS HE DOES NOT PLAN TO RETURN TO HIS FRIENDS HOME IF HE IS ABLE TO FIND ANOTHER "ADDRESS". CM DISCUSSED AVAILABILITY OF HOME HEALTH, REHAB SERVICES AND MEDICAL EQUIPMENT. PT DENIES NEED FOR CARE HOME CARE, REPORTS HE WAS APPROVED FOR [place] ASSISTED IN [place] IF HE EVER WANTED TO GO. PT REPORTS IF INPATIENT REHAB WILL NOT ACCEPT, HE NEEDS REHAB AND WOULD LIKE A LONGTERM FACILITY IN [place] FOR REHAB ONLY. CHOICE SIGNED WITH NO PROVIDER PREFERENCE. CM NOTIFIED DOMING[facility] OF [facility], , OF REHAB REFERRAL, FAXED REFERRAL TO [facility] AT [phone]. CM WAITING ADMISSION DETERMINATION FROM [facility] FOR REHAB SERVICES. Broderick Yo, CASE MANAGEMENT DCPIA - Discharge Planning Initial Assessment Updated by [email or web address]: Broderick Yo on 03/13/18 2:50 pm * Is the patient Alert and Oriented? Yes * How many steps to enter\\exit or inside your home? NONE * PCP DR. BARRERA * [facility] * Preadmission Environment Home with Family * ADLs Independent * Equipment Cane * Other Equipment [facility] - MEDICAL EQUIPMENT PROVIDER * List name and contact numbers for known caregivers / representatives who currently or will assist patient after discharge: RILEY DIETZ, FRIEND, * Verbal permission to speak to the caregivers and representatives has been obtained from the patient. No * Community resources currently utilized None * Please name any agencies selected above. PT HAD BEEN SET UP WITH [employer], THEY CALLED PT ON THE PHONE, HE DID NOT CALL THEM BACK, THEY CAME OUT TO THE HOME AND WERE SENT AWAY BY ROOMMATE WHILE PT WAS SLEEPING. * Additional services required to return to the preadmission environment? Yes * Can the patient safely return to the preadmission environment? Yes * Has this patient been hospitalized within the prior 30 days at any hospital? 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
--- NOTE | 2018-03-13 15:28 | MORECARE ---
CASE MANAGEMENT DISCHARGE SUMMARY PATIENT: MAKENZIE DESAI UNIT: [id number] ADM DATE: 03/12/18 AGE: 67 : [birth year] SEX: M ROOM/BED: D.2140 AUTHOR: СЕРГЕЙ,DOC PHYSICIAN: REFERRING PHYSICIAN: LIVIER MCCLOUD MD DATE OF SERVICE: 03/13/18 Discharge Plan Patient Name: MAKENZIE DESAI Facility: [facility]:[place] : 07/23/1950 Planned Disposition: Chcf Facility Anticipated Discharge Date: 03/14/18 Discharge Date: Expected LOS: 2 Initial Reviewer: [email or web address] Initial Review Date: 03/13/2018 Generated: 03/13/18 4:28 pm DCP- Discharge Planning Updated by [email or web address]: Broderick Yo on 03/13/18 2:[address] Patient Name: MAKENZIE DESAI Encounter No: [id number] : 07-23-1950 Primary Insurance: MEDICARE A & B Anticipated DC Date: 03-16-2018 Planned Disposition: Chcf Facility External Planned Provider: [facility], MEDICARE REHAB BED DISCHARGE PLANNING COMMENTS: CM RECEIVED ORDER FOR INPATIENT REHAB PRESCREENING. CM RECEIVED MESSAGE FROM [facility], THEY WILL NOT ACCEPT PT DUE TO HISTORY OF NON COMPLIANCE. CM MET WITH PT IN ROOM TO DISCUSS DISCHARGE PLANNING AND NEEDS. PT REPORTS LIVING AT HOME INDEPENDENTLY WITH HIS ROOMMATE; ALSO IN THE HOME AT TIMES IS PT'S ADULT DAUGHTER. PT [place] A CANE FROM THE [place] AND NO MEDICAL EQUIPMENT PROVIDER PREFERENCE. PT HAS NO OUTSIDE SERVICES ASSISTING IN THE HOME. PT STATES THAT [facility] CALLED HIM AND HE DID NOT CALL THEM BACK, THEY CAME OUT AND WHILE PT WAS SLEEPING, HIS ROOMMATE SENT THEM AWAY. PT REPORTS HIS ABILITY TO WALK HAS DECREASED SIGNIFICANTLY AND HE IS IN THE HOSPITAL TO "GET MY LEGS UNDER CONTROL". PT REPORTS HE DOES NOT PLAN TO RETURN TO HIS FRIENDS HOME IF HE IS ABLE TO FIND ANOTHER "ADDRESS". CM DISCUSSED AVAILABILITY OF HOME HEALTH, REHAB SERVICES AND MEDICAL EQUIPMENT. PT DENIES NEED FOR SENIOR LIVING CARE, REPORTS HE WAS APPROVED FOR [place] ASSISTED IN [place] IF HE EVER WANTED TO GO. PT REPORTS IF INPATIENT REHAB WILL NOT ACCEPT, HE NEEDS REHAB AND WOULD LIKE A GROUP HOME FACILITY IN [place] FOR REHAB ONLY. CHOICE SIGNED WITH NO PROVIDER PREFERENCE. CM NOTIFIED DOM[facility] OF [facility], , OF REHAB REFERRAL, FAXED REFERRAL TO [facility] AT [phone]. CM WAITING ADMISSION DETERMINATION FROM [facility] FOR REHAB SERVICES. Broderick Yo, CASE MANAGEMENT DCPIA - Discharge Planning Initial Assessment Updated by [email or web address]: Broderick Yo on 03/13/18 2:50 pm * Is the patient Alert and Oriented? Yes * How many steps to enter\\exit or inside your home? NONE * PCP DR. BARRERA * Pharmacy [email or web address] * Preadmission Environment Home with Family * ADLs Independent * Equipment Cane * Other Equipment [facility] - MEDICAL EQUIPMENT PROVIDER * List name and contact numbers for known caregivers / representatives who currently or will assist patient after discharge: RILEY DIETZ, FRIEND, * Verbal permission to speak to the caregivers and representatives has been obtained from the patient. No * Community resources currently utilized None * Please name any agencies selected above. PT HAD BEEN SET UP WITH [employer], THEY CALLED PT ON THE PHONE, HE DID NOT CALL THEM BACK, THEY CAME OUT TO THE HOME AND WERE SENT AWAY BY ROOMMATE WHILE PT WAS SLEEPING. * Additional services required to return to the preadmission environment? Yes * Can the patient safely return to the preadmission environment? Yes * Has this patient been hospitalized within the prior 30 days at any hospital? Yes External Providers External Provider: [facility] [place] Next Contact Date: 03/13/2018 Service Request Date: Service Type: Resolution: Reviewer: Comments: Coverage Notice Reviewer: [id number] - Gladys Mary Notice Issued Date-Time: 03/13/2018 15:00 Notice Type: Medicare Outpatient Observation Notice Notice Delivered To: Patient Relationship to Patient: Self Design Checker Name: Delivery Method: HAND - Hand Delivered Colette Days: Prior Verbal Notification: Recipient Understood Notice: Yes Recipient Signature: Yes Med Rec Note Co-signed by Attending: Coverage Notice Comment: Reviewer: [id number] - Broderick Yo Notice Issued Date-Time: 03/13/2018 12:20 Notice Type: Patient Choice Letter Notice Delivered To: Patient Relationship to Patient: Design Checker Name: Delivery Method: HAND - Hand Delivered Colette Days: Prior Verbal Notification: Recipient Understood Notice: Yes Recipient Signature: Yes Med Rec Note Co-signed by Attending: Coverage Notice Comment: NO REHAB SNF PREFERENCE IN [place] Last DP export: 03/13/18 2:07 Patient Name: MAKENZIE DESAI Page 12485 at 1528 All edits/amendments must be made on the electronic document DICTATION DATE: 03/13/181527 CUSTOMER ENGINEERING SPECIALIST: OSMEL 03/13/181527 RPT#: [id number] DC DATE: STATUS: ADM IN [facility] [address] [place] [address] END OF REPORT
[2018-03-14 01:30] VITALS: BP 128/75
[2018-03-14 06:14] VITALS: BP 108/71
[2018-03-14 07:09] LABS: BASOPHILS 0.3 % (0-2); EOSINOPHILS 7.1 % (0-7); HEMATOCRIT 40.9 % (42.0-54.0); HEMOGLOBIN 13.3 g/dL (13.5-17.5); IMMATURE GRANULOCYTES 0.5 % (0-5); LYMPHOCYTES 17.9 % (15-50); MCH 29.8 pg (26.0-34.0); MCHC 32.5 g/dL (31.0-37.0); MEAN PLATELET VOLUME 10.6 fL (7.4-10.4); MONOCYTES 15.6 % (2-11); NEUTROPHILS 58.6 % (40-80); RBC 4.47 10x6/uL (4.20-6.10); RDW 16.1 % (11.5-14.5); WBC 6.5 10x3/uL (4.8-10.8)
[2018-03-14 07:12] LABS: MCV 91.5 fL (80.0-100.0); PLATELET COUNT 265 10x3/uL (130-400)
[2018-03-14 07:22] LABS: CALC OSMOLALITY 281 mosm/kg (275-300); CALCIUM 7.6 mg/dL (8.5-10.1); CARBON DIOXIDE 25.7 mmol/L (21.0-32.0); CHLORIDE - SERUM 107 mmol/L (98-107); GLUCOSE 99 mg/dL (74-106); MAGNESIUM - SERUM 1.8 mg/dL (1.8-2.4); POTASSIUM - SERUM 4.2 mmol/L (3.5-5.1); SODIUM 141 mmol/L (136-145); UREA NITROGEN 15 mg/dL (7-18); eGFR NON AFRICAN AMERICAN 79 mL/min (90-120)
[2018-03-14 08:21] VITALS: BP 152/91
[2018-03-14 12:41] VITALS: BP 152/87
[2018-03-14 16:51] VITALS: BP 156/80
[2018-03-14 20:30] VITALS: BP 137/84
[2018-03-15 00:38] VITALS: BP 151/82
[2018-03-15 05:40] VITALS: BP 144/65
[2018-03-15 06:56] LABS: BASOPHILS 0.5 % (0-2); HEMATOCRIT 38.9 % (42.0-54.0); HEMOGLOBIN 12.7 g/dL (13.5-17.5); IMMATURE GRANULOCYTES 0.6 % (0-5); LYMPHOCYTES 17.7 % (15-50); MCH 29.4 pg (26.0-34.0); MCHC 32.6 g/dL (31.0-37.0); MEAN PLATELET VOLUME 10.5 fL (7.4-10.4); MONOCYTES 17.9 % (2-11); NEUTROPHILS 55.3 % (40-80); PLATELET COUNT 289 10x3/uL (130-400); RBC 4.32 10x6/uL (4.20-6.10); RDW 15.8 % (11.5-14.5); WBC 6.4 10x3/uL (4.8-10.8)
[2018-03-15 07:05] LABS: CALC OSMOLALITY 275 mosm/kg (275-300); CALCIUM 8.1 mg/dL (8.5-10.1); CHLORIDE - SERUM 105 mmol/L (98-107); CREATININE - SERUM 0.9 mg/dL (0.6-1.3); GLUCOSE 102 mg/dL (74-106); MAGNESIUM - SERUM 1.9 mg/dL (1.8-2.4); POTASSIUM - SERUM 4.4 mmol/L (3.5-5.1); SODIUM 137 mmol/L (136-145); UREA NITROGEN 18 mg/dL (7-18); eGFR NON AFRICAN AMERICAN 90 mL/min (90-120)
[2018-03-15 08:31] VITALS: BP 157/75
[2018-03-15 12:54] VITALS: BP 143/80
[2018-03-15 16:42] VITALS: BP 156/86
[2018-03-15 20:53] VITALS: BP 153/83
[2018-03-16 00:45] VITALS: BP 163/86
[2018-03-16 04:25] VITALS: BP 150/79
[2018-03-16 05:58] LABS: HEMATOCRIT 38.6 % (42.0-54.0); HEMOGLOBIN 12.7 g/dL (13.5-17.5); MCH 29.5 pg (26.0-34.0); MCHC 32.9 g/dL (31.0-37.0); MCV 89.6 fL (80.0-100.0); MEAN PLATELET VOLUME 10.5 fL (7.4-10.4); PLATELET COUNT 313 10x3/uL (130-400); RBC 4.31 10x6/uL (4.20-6.10); RDW 15.5 % (11.5-14.5); WBC 6.1 10x3/uL (4.8-10.8)
[2018-03-16 06:00] LABS: CALC OSMOLALITY 278 mosm/kg (275-300); CARBON DIOXIDE 26.1 mmol/L (21.0-32.0); CHLORIDE - SERUM 104 mmol/L (98-107); CREATININE - SERUM 0.8 mg/dL (0.6-1.3); GLUCOSE 100 mg/dL (74-106); MAGNESIUM - SERUM 1.8 mg/dL (1.8-2.4); POTASSIUM - SERUM 4.6 mmol/L (3.5-5.1); SODIUM 138 mmol/L (136-145); UREA NITROGEN 20 mg/dL (7-18); eGFR NON AFRICAN AMERICAN > 90 mL/min (90-120)
[2018-03-16 07:27] LABS: EOSINOPHILS 5 % (0-7); LYMPHOCYTES 26 % (15-50); MONOCYTES 15 % (2-11); NEUTROPHILS 53 % (40-80); PLATELET ESTIMATE NORMAL
[2018-03-16 08:52] VITALS: BP 129/73
--- NOTE | 2018-03-16 11:51 | MORECARE ---
CASE MANAGEMENT DISCHARGE SUMMARY PATIENT: MAKENZIE DESAI UNIT: [id number] ADM DATE: 03/14/18 AGE: 67 : [birth year] SEX: M ROOM/BED: D.2140 AUTHOR: СЕРГЕЙ,DOC PHYSICIAN: REFERRING PHYSICIAN: LIVIER MCCLOUD MD DATE OF SERVICE: 03/16/18 Discharge Plan Patient Name: MAKENZIE DESAI Facility: [facility]:[place] : 07/23/1950 Planned Disposition: Penitentiary Facility Anticipated Discharge Date: 03/14/18 Discharge Date: Expected LOS: 2 Initial Reviewer: [id number] Initial Review Date: 03/13/2018 Generated: 03/16/18 12:50 pm Comments DCP- Discharge Planning Updated by [id number]: Broderick oY on 03/16/18 10:[address] Patient Name: MAKENZIE DESAI Encounter No: [id number] : 07-23-1950 Primary Insurance: MEDICARE A & B Anticipated DC Date: 03-14-2018 Planned Disposition: Penitentiary Facility External Planned Provider:[facility], MEDICARE REHAB BED DISCHARGE PLANNING COMMENTS: CM REQUESTED REHAB ADMISSION UPDATE FROM [facility], . CM FAXED REFERRAL UPDATE TO [facility] [place] AT [phone]. CM WAITING ADMISSION DETERMINATION FROM THE [facility] FOR REHAB SERVICES. Broderick Yo CASE PELON DCP- Discharge Planning Updated by [id number]: Broderick Yo on 03/13/18 2:[address] Patient Name: MAKENZIE DESAI Encounter No: [id number] : 07-23-1950 Primary Insurance: MEDICARE A & B Anticipated DC Date: 03-16-2018 Planned Disposition: Penitentiary Facility External Planned Provider: [facility], MEDICARE REHAB BED DISCHARGE PLANNING COMMENTS: CM RECEIVED ORDER FOR INPATIENT REHAB PRESCREENING. CM RECEIVED MESSAGE FROM [facility] OF [facility], THEY WILL NOT ACCEPT PT DUE TO HISTORY OF NON COMPLIANCE. CM MET WITH PT IN ROOM TO DISCUSS DISCHARGE PLANNING AND NEEDS. PT REPORTS LIVING AT HOME INDEPENDENTLY WITH HIS ROOMMATE; ALSO IN THE HOME AT TIMES IS PT'S ADULT DAUGHTER. PT HAS A CANE FROM THE [place] AND NO MEDICAL EQUIPMENT PROVIDER PREFERENCE. PT HAS NO OUTSIDE SERVICES ASSISTING IN THE HOME. PT STATES THAT [facility] CALLED HIM AND HE DID NOT CALL THEM BACK, THEY CAME OUT AND WHILE PT WAS SLEEPING, HIS ROOMMATE SENT THEM AWAY. PT REPORTS HIS ABILITY TO WALK HAS DECREASED SIGNIFICANTLY AND HE IS IN THE HOSPITAL TO "GET MY LEGS UNDER CONTROL". PT REPORTS HE DOES NOT PLAN TO RETURN TO HIS FRIENDS HOME IF HE IS ABLE TO FIND ANOTHER "ADDRESS". CM DISCUSSED AVAILABILITY OF HOME HEALTH, REHAB SERVICES AND MEDICAL EQUIPMENT. PT DENIES NEED FOR CARE HOME CARE, REPORTS HE WAS APPROVED FOR [place] ASSISTED IN [place] IF HE EVER WANTED TO GO. PT REPORTS IF INPATIENT REHAB WILL NOT ACCEPT, HE NEEDS REHAB AND WOULD LIKE A HALF-WAY FACILITY IN [place] FOR REHAB ONLY. CHOICE SIGNED WITH NO PROVIDER PREFERENCE. CM NOTIFIED DOMINGA OF THE [facility], , OF REHAB REFERRAL, FAXED REFERRAL TO THE [facility] AT [phone]. CM WAITING ADMISSION DETERMINATION FROM THE [facility] FOR REHAB SERVICES. Broderick Yo, CASE MANAGEMENT DCPIA - Discharge Planning Initial Assessment Updated by [id number]: Broderick Yo on 03/13/18 2:50 pm * Is the patient Alert and Oriented? Yes * How many steps to enter\\exit or inside your home? NONE * PCP DR. BARRERA * Pharmacy [facility] [place] [facility] * Preadmission Environment Home with Family * ADLs Independent * Equipment Cane * Other Equipment [facility] - MEDICAL EQUIPMENT PROVIDER * List name and contact numbers for known caregivers / representatives who currently or will assist patient after discharge: RILEY DIETZ, FRIEND, * Verbal permission to speak to the caregivers and representatives has been obtained from the patient. No * Community resources currently utilized None * Please name any agencies selected above. PT HAD BEEN SET UP WITH [employer], THEY CALLED PT ON THE PHONE, HE DID NOT CALL THEM BACK, THEY CAME OUT TO THE HOME AND WERE SENT AWAY BY ROOMMATE WHILE PT WAS SLEEPING. * Additional services required to return to the preadmission environment? Yes * Can the patient safely return to the preadmission environment? Yes * Has this patient been hospitalized within the prior 30 days at any hospital? Yes Coverage Notice Reviewer: [email or web address] Christian Graham Nemo Notice Issued Date-Time: 03/13/2018 15:00 Notice Type: Medicare Outpatient Observation Notice Notice Delivered To: Patient Relationship to Patient: Self Salesperson [employer] Name: Delivery Method: HAND - Hand Delivered Colette Days: Prior Verbal Notification: Recipient Understood Notice: Yes Recipient Signature: Yes Med Rec Note Co-signed by Attending: Coverage Notice Comment: Reviewer: [id number] Christian Yo Notice Issued Date-Time: 03/13/2018 12:20 Notice Type: Patient Choice Letter Notice Delivered To: Patient Relationship to Patient: Salesperson [employer] Name: Delivery Method: HAND - Hand Delivered Colette Days: Prior Verbal Notification: Recipient Understood Notice: Yes Recipient Signature: Yes Med Rec Note Co-signed by Attending: Coverage Notice Comment: NO REHAB SNF PREFERENCE IN [place] Last DP export: 03/13/18 2:28 Patient Name: MAKENZIE DESAI Page [phone] at 1151 All edits/amendments must be made on the electronic document DICTATION DATE: 03/16/18 1150 SMALL PARTS ASSEMBLER: OSMEL 03/16/18 1150 RPT#: [id number] DC DATE: STATUS: ADM IN [facility] [address] [place] [address] END OF REPORT
[2018-03-16 12:32] VITALS: BP 144/83
[2018-03-16 16:42] VITALS: BP 148/94
[2018-03-16 19:00] VITALS: BP 130/65
[2018-03-17] VITALS: BP 152/84
[2018-03-17 05:24] LABS: HEMATOCRIT 38.3 % (42.0-54.0); HEMOGLOBIN 12.8 g/dL (13.5-17.5); MCH 29.7 pg (26.0-34.0); MCHC 33.4 g/dL (31.0-37.0); MCV 88.9 fL (80.0-100.0); MEAN PLATELET VOLUME 10.6 fL (7.4-10.4); PLATELET COUNT 314 10x3/uL (130-400); RBC 4.31 10x6/uL (4.20-6.10); RDW 15.6 % (11.5-14.5); WBC 5.9 10x3/uL (4.8-10.8)
[2018-03-17 05:36] VITALS: BP 149/63
[2018-03-17 05:36] LABS: CALC OSMOLALITY 274 mosm/kg (275-300); CALCIUM 8.3 mg/dL (8.5-10.1); CARBON DIOXIDE 26.5 mmol/L (21.0-32.0); CHLORIDE - SERUM 103 mmol/L (98-107); CREATININE - SERUM 0.8 mg/dL (0.6-1.3); GLUCOSE 101 mg/dL (74-106); MAGNESIUM - SERUM 1.8 mg/dL (1.8-2.4); POTASSIUM - SERUM 5.2 mmol/L (3.5-5.1); SODIUM 136 mmol/L (136-145); UREA NITROGEN 21 mg/dL (7-18); eGFR NON AFRICAN AMERICAN > 90 mL/min (90-120)
[2018-03-17 05:54] LABS: BASOPHILS 1 % (0-2); EOSINOPHILS 3 % (0-7); LYMPHOCYTES 21 % (15-50); MONOCYTES 17 % (2-11); NEUTROPHILS 57 % (40-80); PLATELET ESTIMATE NORMAL
[2018-03-17 07:46] VITALS: BP 137/73
[2018-03-17 15:17] VITALS: BP 157/83
[2018-03-17 21:23] VITALS: BP 147/78
[2018-03-18 00:33] VITALS: BP 152/80
[2018-03-18 05:36] LABS: HEMATOCRIT 37.7 % (42.0-54.0); HEMOGLOBIN 12.4 g/dL (13.5-17.5); MCH 29.4 pg (26.0-34.0); MCHC 32.9 g/dL (31.0-37.0); MCV 89.3 fL (80.0-100.0); MEAN PLATELET VOLUME 9.9 fL (7.4-10.4); PLATELET COUNT 365 10x3/uL (130-400); RBC 4.22 10x6/uL (4.20-6.10); RDW 15.6 % (11.5-14.5); WBC 6.6 10x3/uL (4.8-10.8)
[2018-03-18 05:52] LABS: AMYLASE - SERUM 84 U/L (25-115); CALC OSMOLALITY 278 mosm/kg (275-300); CALCIUM 8.1 mg/dL (8.5-10.1); CARBON DIOXIDE 27.3 mmol/L (21.0-32.0); CHLORIDE - SERUM 103 mmol/L (98-107); CREATININE - SERUM 0.7 mg/dL (0.6-1.3); GLUCOSE 101 mg/dL (74-106); LIPASE 134 U/L (73-393); MAGNESIUM - SERUM 1.7 mg/dL (1.8-2.4); SODIUM 138 mmol/L (136-145); UREA NITROGEN 20 mg/dL (7-18); eGFR NON AFRICAN AMERICAN > 90 mL/min (90-120)
[2018-03-18 05:54] LABS: POTASSIUM - SERUM 4.4 mmol/L (3.5-5.1)
[2018-03-18 07:54] VITALS: BP 138/72
[2018-03-18 07:59] LABS: EOSINOPHILS 6 % (0-7); LYMPHOCYTES 13 % (15-50); MONOCYTES 20 % (2-11); NEUTROPHILS 56 % (40-80); PLATELET ESTIMATE NORMAL; ROULEAUX OCC
--- NOTE | 2018-03-18 08:42 | MORECARE ---
CASE MANAGEMENT DISCHARGE SUMMARY PATIENT: MAKENZIE DESAI UNIT: [id number] ADM DATE: 03/14/18 AGE: 67 : [birth year] SEX: M ROOM/BED: D.2140 AUTHOR: СЕРГЕЙ,DOC PHYSICIAN: REFERRING PHYSICIAN: LIVIER MCCLOUD MD DATE OF SERVICE: 03/18/18 Discharge Plan Patient Name: MAKENZIE DESAI Facility: [facility]:[place] : 07/23/1950 Planned Disposition: [facility] Facility Anticipated Discharge Date: 03/14/18 Discharge Date: Expected LOS: 1 Initial Reviewer: [id number] Initial Review Date: 03/13/2018 Generated: 03/18/18 9:42 am Comments DCP- Discharge Planning Updated by [id number]: Broderick Yo on 03/18/18 7:[address] Patient Name: MAKENZIE DESAI Encounter No: [id number] : 07-23-1950 Primary Insurance: MEDICARE A & B Anticipated DC Date: 03-14-2018 Planned Disposition: [facility] Facility External Planned Provider: [facility], MEDICARE REHAB BED DISCHARGE PLANNING COMMENTS: CM REQUESTED REHAB ADMISSION UPDATE FROM [facility], . CM FAXED REFERRAL UPDATE TO THE [facility] AT [phone]. CM WAITING ADMISSION DETERMINATION FROM THE [facility] FOR REHAB SERVICES. NIKKI Naik DCP- Discharge Planning Updated by [id number]: Broderick Yo on 03/16/18 10:[address] Patient Name: MAKENZIE DESAI Encounter No: [id number] : 07-23-1950 Primary Insurance: MEDICARE A & B Anticipated DC Date: 03-14-2018 Planned Disposition: [facility] Facility External Planned Provider:[facility], MEDICARE REHAB BED DISCHARGE PLANNING COMMENTS: CM REQUESTED REHAB ADMISSION UPDATE FROM [facility], . CM FAXED REFERRAL UPDATE TO THE [facility] AT [phone]. CM WAITING ADMISSION DETERMINATION FROM THE [facility] FOR REHAB SERVICES. NIKKI Naik DCP- Discharge Planning Updated by [id number]: Broderick Yo on 03/13/18 2:[address] Patient Name: MAKENZIE DESAI Encounter No: [id number] : 07-23-1950 Primary Insurance: MEDICARE A & B Anticipated DC Date: 03-16-2018 Planned Disposition: [facility] Facility External Planned Provider: [facility], MEDICARE REHAB BED DISCHARGE PLANNING COMMENTS: CM RECEIVED ORDER FOR INPATIENT REHAB PRESCREENING. CM RECEIVED MESSAGE FROM [facility], THEY WILL NOT ACCEPT PT DUE TO HISTORY OF NON COMPLIANCE. CM MET WITH PT IN ROOM TO DISCUSS DISCHARGE PLANNING AND NEEDS. PT REPORTS LIVING AT HOME INDEPENDENTLY WITH HIS ROOMMATE; ALSO IN THE HOME AT TIMES IS PT'S ADULT DAUGHTER. PT HAS A CANE FROM THE [place] AND NO MEDICAL EQUIPMENT PROVIDER PREFERENCE. PT HAS NO OUTSIDE SERVICES ASSISTING IN THE HOME. PT STATES THAT [facility] CALLED HIM AND HE DID NOT CALL THEM BACK, THEY CAME OUT AND WHILE PT WAS SLEEPING, HIS ROOMMATE SENT THEM AWAY. PT REPORTS HIS ABILITY TO WALK HAS DECREASED SIGNIFICANTLY AND HE IS IN THE HOSPITAL TO "GET MY LEGS UNDER CONTROL". PT REPORTS HE DOES NOT PLAN TO RETURN TO HIS FRIENDS HOME IF HE IS ABLE TO FIND ANOTHER "ADDRESS". CM DISCUSSED AVAILABILITY OF HOME HEALTH, REHAB SERVICES AND MEDICAL EQUIPMENT. PT DENIES NEED FOR DEVELOPMENT ENG CARE, REPORTS HE WAS APPROVED FOR IN ASSISTED IN [place] IF HE EVER WANTED TO GO. PT REPORTS IF INPATIENT REHAB WILL NOT ACCEPT, HE NEEDS REHAB AND WOULD LIKE A HALF-WAY FACILITY IN [place] FOR REHAB ONLY. CHOICE SIGNED WITH NO PROVIDER PREFERENCE. CM NOTIFIED [facility] OF THE [facility], , OF REHAB REFERRAL, FAXED REFERRAL TO THE [facility] AT [phone]. CM WAITING ADMISSION DETERMINATION FROM THE [facility] FOR REHAB SERVICES. Broderick Yo, CASE MANAGEMENT DCPIA - Discharge Planning Initial Assessment Updated by [id number]: Broderick Yo on 03/13/18 2:50 pm * Is the patient Alert and Oriented? Yes * How many steps to enter\\exit or inside your home? NONE * PCP DR. BARRERA * Pharmacy [facility] [place] [facility] * Preadmission Environment Home with Family * ADLs Independent * Equipment Cane * Other Equipment [place] - MEDICAL EQUIPMENT PROVIDER * List name and contact numbers for known caregivers / representatives who currently or will assist patient after discharge: RILEY DIETZ FRIEND, * Verbal permission to speak to the caregivers and representatives has been obtained from the patient. No * Community resources currently utilized None * Please name any agencies selected above. PT HAD BEEN SET UP WITH [employer], THEY CALLED PT ON THE PHONE, HE DID NOT CALL THEM BACK, THEY CAME OUT TO THE HOME AND WERE SENT AWAY BY ROOMMATE WHILE PT WAS SLEEPING. * Additional services required to return to the preadmission environment? Yes * Can the patient safely return to the preadmission environment? Yes * Has this patient been hospitalized within the prior 30 days at any hospital? Yes Coverage Notice Reviewer: [id number] Christian Gladysterrie Mary Notice Issued Date-Time: 03/13/2018 15:00 Notice Type: Medicare Outpatient Observation Notice Notice Delivered To: Patient Relationship to Patient: Self Aeronautical Project Engineer Name: Delivery Method: HAND - Hand Delivered Colette Days: Prior Verbal Notification: Recipient Understood Notice: Yes Recipient Signature: Yes Med Rec Note Co-signed by Attending: Coverage Notice Comment: Reviewer: [id number] - Broderick Yo Notice Issued Date-Time: 03/13/2018 12:20 Notice Type: Patient Choice Letter Notice Delivered To: Patient Relationship to Patient: Aeronautical Project Engineer Name: Delivery Method: HAND - Hand Delivered Colette Days: Prior Verbal Notification: Recipient Understood Notice: Yes Recipient Signature: Yes Med Rec Note Co-signed by Attending: Coverage Notice Comment: NO REHAB SNF PREFERENCE IN [place] Last DP export: 03/16/18 10:50 Patient Name: MAKENZIE DESAI Page 85282 at 0842 All edits/amendments must be made on the electronic document DICTATION DATE: 03/18/18840 MICROGRAPHICS SERVICES SUPERVISOR: OSMEL 03/18/18840 RPT#: [id number] DC DATE: STATUS: ADM IN [facility] [address] [place] [address] END OF REPORT
--- NOTE | 2018-03-18 09:39 | MORECARE ---
CASE MANAGEMENT DISCHARGE SUMMARY PATIENT: MAKENZIE DESAI UNIT: [id number] ADM DATE: 03/14/18 AGE: 67 : [birth year] SEX: M ROOM/BED: D.2140 AUTHOR: СЕРГЕЙDOC PHYSICIAN: REFERRING PHYSICIAN: LIVIER MCCLOUD MD DATE OF SERVICE: 03/18/18 Discharge Plan Patient Name: MAKENZIE DESAI Facility: [facility]:[place] : 07/23/1950 Planned Disposition: Long Term Facility Anticipated Discharge Date: 03/14/18 Discharge Date: Expected LOS: 1 Initial Reviewer: [id number] Initial Review Date: 03/13/2018 Generated: 03/18/18 10:39 am Comments DCP- Discharge Planning Updated by [id number]: Broderick Yo on 03/18/18 8:[address] Patient Name: MAKENZIE DESAI Encounter No: [id number] : 07-23-1950 Primary Insurance: MEDICARE A & B Anticipated DC Date: 03-14-2018 Planned Disposition: Long Term Facility External Planned Provider: [facility], MEDICARE REHAB BED DCP follow-up note: CM RECEIVED MESSAGE FROM [facility], THEY WILL ACCEPT PT FOR REHAB AT DISCHARGE. PT NOTIFIED AND IN AGREEMENT WITH REHAB AT DISCHARGE. IMPORTANT MESSAGE FROM MEDICARE PROVIDED AND EXPLAINED. CM WAITING CLAIFICATION FROM [facility] TO WHICH BUILDING, NORTH OR SOUTH, PT WILL ADMIT TO FOR REHAB. FOR DISCHARGE TO THE [facility], FAX DISCHARGE INFORMATION TO THE [facility] AT [phone]; NURSE REPORT TO BE CALLED TO THE [facility] AT [phone]. THE [facility] TO ARRANGE VAN TRANSPORATION. Broderick Yo. CASE MANAGEMENT DCP- Discharge Planning Updated by [id number]: Broderick Yo on 03/18/18 7:[address] Patient Name: MAKENZIE EDSAI Encounter No: [id number] : 07-23-1950 Primary Insurance: MEDICARE A & B Anticipated DC Date: 03-14-2018 Planned Disposition: Long Term Facility External Planned Provider: [facility], MEDICARE REHAB BED DISCHARGE PLANNING COMMENTS: CM REQUESTED REHAB ADMISSION UPDATE FROM [facility], . CM FAXED REFERRAL UPDATE TO THE [facility] AT [phone]. CM WAITING ADMISSION DETERMINATION FROM THE [facility] FOR REHAB SERVICES. Broderick Yo CASE MANAGEMENT DCP- Discharge Planning Updated by [id number]: Broderick Yo on 03/16/18 10:[address] Patient Name: MAKENZIE DESAI Encounter No: [id number] : 07-23-1950 Primary Insurance: MEDICARE A & B Anticipated DC Date: 03-14-2018 Planned Disposition: Long Term Facility External Planned Provider:[facility], MEDICARE REHAB BED DISCHARGE PLANNING COMMENTS: CM REQUESTED REHAB ADMISSION UPDATE FROM [facility], . CM FAXED REFERRAL UPDATE TO THE [facility] AT [phone]. CM WAITING ADMISSION DETERMINATION FROM [facility] FOR REHAB SERVICES. Broderick Yo CASE PELON DCP- Discharge Planning Updated by [id number]: Broderick Yo on 03/13/18 2:[address] Patient Name: MAKENZIE DESAI Encounter No: [id number] : 07-23-1950 Primary Insurance: MEDICARE A & B Anticipated DC Date: 03-16-2018 Planned Disposition: Long Term Facility External Planned Provider: [facility], MEDICARE REHAB BED DISCHARGE PLANNING COMMENTS: CM RECEIVED ORDER FOR INPATIENT REHAB PRESCREENING. CM RECEIVED MESSAGE FROM [facility] OF [facility], THEY WILL NOT ACCEPT PT DUE TO HISTORY OF NON COMPLIANCE. CM MET WITH PT IN ROOM TO DISCUSS DISCHARGE PLANNING AND NEEDS. PT REPORTS LIVING AT HOME INDEPENDENTLY WITH HIS ROOMMATE; ALSO IN THE HOME AT TIMES IS PT'S ADULT DAUGHTER. PT HAS A CANE FROM THE [place] AND NO MEDICAL EQUIPMENT PROVIDER PREFERENCE. PT HAS NO OUTSIDE SERVICES ASSISTING IN THE HOME. PT STATES THAT [facility] CALLED HIM AND HE DID NOT CALL THEM BACK, THEY CAME OUT AND WHILE PT WAS SLEEPING, HIS ROOMMATE SENT THEM AWAY. PT REPORTS HIS ABILITY TO WALK HAS DECREASED SIGNIFICANTLY AND HE IS IN THE HOSPITAL TO "GET MY LEGS UNDER CONTROL". PT REPORTS HE DOES NOT PLAN TO RETURN TO HIS FRIENDS HOME IF HE IS ABLE TO FIND ANOTHER "ADDRESS". CM DISCUSSED AVAILABILITY OF HOME HEALTH, REHAB SERVICES AND MEDICAL EQUIPMENT. PT DENIES NEED FOR CUSTODIAL CARE, REPORTS HE WAS APPROVED FOR [place] ASSISTED IN [place] IF HE EVER WANTED TO GO. PT REPORTS IF INPATIENT REHAB WILL NOT ACCEPT, HE NEEDS REHAB AND WOULD LIKE A PRISON FACILITY IN [place] FOR REHAB ONLY. CHOICE SIGNED WITH NO PROVIDER PREFERENCE. CM NOTIFIED [facility] OF THE [facility], , OF REHAB REFERRAL, FAXED REFERRAL TO THE [facility] AT [phone]. CM WAITING ADMISSION DETERMINATION FROM THE [facility] FOR REHAB SERVICES. Broderick Yo, CASE MANAGEMENT DCPIA - Discharge Planning Initial Assessment Updated by [id number]: Broderick Yo on 03/13/18 2:50 pm * Is the patient Alert and Oriented? Yes * How many steps to enter\\exit or inside your home? NONE * PCP DR. BARRERA * Pharmacy [facility] [place] [facility] * Preadmission Environment Home with Family * ADLs Independent * Equipment Cane * Other Equipment [facility] - MEDICAL EQUIPMENT PROVIDER * List name and contact numbers for known caregivers / representatives who currently or will assist patient after discharge: RILEY DIETZ, FRIEND, * Verbal permission to speak to the caregivers and representatives has been obtained from the patient. No * Community resources currently utilized None * Please name any agencies selected above. PT HAD BEEN SET UP WITH [employer], THEY CALLED PT ON THE PHONE, HE DID NOT CALL THEM BACK, THEY CAME OUT TO THE HOME AND WERE SENT AWAY BY ROOMMATE WHILE PT WAS SLEEPING. * Additional services required to return to the preadmission environment? Yes * Can the patient safely return to the preadmission environment? Yes * Has this patient been hospitalized within the prior 30 days at any hospital? Yes Coverage Notice Reviewer: [id number] - Gladys Mary Notice Issued Date-Time: 03/13/2018 15:00 Notice Type: Medicare Outpatient Observation Notice Notice Delivered To: Patient Relationship to Patient: Self Mix Mill Tender Name: Delivery Method: HAND - Hand Delivered Colette Days: Prior Verbal Notification: Recipient Understood Notice: Yes Recipient Signature: Yes Med Rec Note Co-signed by Attending: Coverage Notice Comment: Reviewer: [id number] - Broderick Yo Notice Issued Date-Time: 03/13/2018 12:20 Notice Type: Patient Choice Letter Notice Delivered To: Patient Relationship to Patient: Mix Mill Tender Name: Delivery Method: HAND - Hand Delivered Colette Days: Prior Verbal Notification: Recipient Understood Notice: Yes Recipient Signature: Yes Med Rec Note Co-signed by Attending: Coverage Notice Comment: NO REHAB SNF PREFERENCE IN [place] Last DP export: 03/18/18 7:42 am Patient Name: MAKENZIE DESAI Page 14102 at 0939 All edits/amendments must be made on the electronic document DICTATION DATE: 03/18/18938 DIRECTOR OF LOSS PREVENTION: OSMEL 03/18/18938 RPT#: [id number] DC DATE: STATUS: ADM IN [facility] [address] [place] [address] END OF REPORT
--- NOTE | 2018-03-18 09:53 | MORECARE ---
CASE MANAGEMENT DISCHARGE SUMMARY PATIENT: MAKENZIE DESAI UNIT: [id number] ADM DATE: 03/14/18 AGE: 67 : [birth year] SEX: M ROOM/BED: D.2140 AUTHOR: СЕРГЕЙ,DOC PHYSICIAN: REFERRING PHYSICIAN: LIVIER MCCLOUD MD DATE OF SERVICE: 03/18/18 Discharge Plan Patient Name: MAKENZIE DESAI Facility: [facility]:[place] : 07/23/1950 Planned Disposition: Group Home Facility Anticipated Discharge Date: 03/14/18 Discharge Date: Expected LOS: 1 Initial Reviewer: [email or web address] Initial Review Date: 03/13/2018 Generated: 03/18/18 10:53 am Comments DCP- Discharge Planning Updated by RAKESH: Broderick Yo on 03/18/18 8:[address] Patient Name: MAKENZIE DESAI Encounter No: [id number] : 07-23-1950 Primary Insurance: MEDICARE A & B Anticipated DC Date: 03-14-2018 Planned Disposition: Group Home Facility External Planned Provider: [facility], MED[facility]ARE REHAB B[facility] DCP follow-up note: CM RECEIVED MESSAGE FROM [facility], THEY WILL ACCEPT PT FOR REHAB AT DISCHARGE. PT NOTIFIED AND IN AGREEMENT WITH REHAB AT DISCHARGE. IMPORTANT MESSAGE FROM MEDICARE PROVIDED AND EXPLAINED. PT THINKS HE WILL BE GOING TO [facility]. CM WAITING CLAIFICATION FROM THE [facility] TO WHICH BUILDING, NORTH OR SOUTH, PT WILL ADMIT TO FOR REHAB. CM RECEIVED MESSAGE FROM [facility], PT WILL ADMIT TO SOUTH BUILDING, ROOM 501. FOR DISCHARGE, FAX DISCHARGE INFORMATION TO THE [facility], , NURSE REPORT TO BE CALLED TO THE [facility] AT [phone]. THE [facility] TO ARRANGE VAN TRANSPORATION. Broderick Yo. CASE MANAGEMENT DCP- Discharge Planning Updated by [id number]: Broderick Yo on 03/18/18 7:[address] Patient Name: MAKENZIE DESAI Encounter No: [id number] : 07-23-1950 Primary Insurance: MEDICARE A & B Anticipated DC Date: 03-14-2018 Planned Disposition: Group Home Facility External Planned Provider: [facility], MEDICARE REHAB BED DISCHARGE PLANNING COMMENTS: CM REQUESTED REHAB ADMISSION UPDATE FROM [facility], . CM FAXED REFERRAL UPDATE TO THE [facility]IA [facility] AT [phone]. CM WAITING ADMISSION DETERMINATION FROM THE [facility] FOR REHAB SERVICES. Broderick Yo CASE MANAGEMENT DCP- Discharge Planning Updated by [id number]: Broderick Yo on 03/16/18 10:[address] Patient Name: MAKENZIE DESAI Encounter No: [id number] : 07-23-1950 Primary Insurance: MEDICARE A & B Anticipated DC Date: 03-14-2018 Planned Disposition: Group Home Facility External Planned Provider:[facility], MEDICARE REHAB BED DISCHARGE PLANNING COMMENTS: CM REQUESTED REHAB ADMISSION UPDATE FROM [facility], . CM FAXED REFERRAL UPDATE TO THE [facility] AT [phone]. CM WAITING ADMISSION DETERMINATION FROM THE [facility] FOR REHAB SERVICES. NIKKI Naik DCP- Discharge Planning Updated by [id number]: Broderick Yo on 03/13/18 2:[address] Patient Name: MAKENZIE DESAI Encounter No: [id number] : 07-23-1950 Primary Insurance: MEDICARE A & B Anticipated DC Date: 03-16-2018 Planned Disposition: Group Home Facility External Planned Provider: [facility], MEDICARE REHAB BED DISCHARGE PLANNING COMMENTS: CM RECEIVED ORDER FOR INPATIENT REHAB PRESCREENING. CM RECEIVED MESSAGE FROM [facility], THEY WILL NOT ACCEPT PT DUE TO HISTORY OF NON COMPLIANCE. CM MET WITH PT IN ROOM TO DISCUSS DISCHARGE PLANNING AND NEEDS. PT REPORTS LIVING AT HOME INDEPENDENTLY WITH HIS ROOMMATE; ALSO IN THE HOME AT TIMES IS PT'S ADULT DAUGHTER. [place] AND NO MEDICAL EQUIPMENT PROVIDER PREFERENCE. PT HAS NO OUTSIDE SERVICES ASSISTING IN THE HOME. PT STATES THAT [facility] CALLED HIM AND HE DID NOT CALL THEM BACK, THEY CAME OUT AND WHILE PT WAS SLEEPING, HIS ROOMMATE SENT THEM AWAY. PT REPORTS HIS ABILITY TO WALK HAS DECREASED SIGNIFICANTLY AND HE IS IN THE HOSPITAL TO "GET MY LEGS UNDER CONTROL". PT REPORTS HE DOES NOT PLAN TO RETURN TO HIS FRIENDS HOME IF HE IS ABLE TO FIND ANOTHER "ADDRESS". CM DISCUSSED AVAILABILITY OF HOME HEALTH, REHAB SERVICES AND MEDICAL EQUIPMENT. PT DENIES NEED FOR SUPERVISOR TRAVEL TRAILER CARE, REPORTS HE WAS APPROVED FOR [facility] [place]IST[place] IF HE EVER WANTED TO GO. PT REPORTS IF INPATIENT REHAB WILL NOT ACCEPT, HE NEEDS REHAB AND WOULD LIKE A LONGTERM FACILITY IN [place] FOR REHAB ONLY. CHOICE SIGNED WITH NO PROVIDER PREFERENCE. CM NOTIFIED [facility] OF THE [facility], , OF REHAB REFERRAL, FAXED REFERRAL TO THE [facility] AT [phone]. CM WAITING ADMISSION DETERMINATION FROM THE [facility] FOR REHAB SERVICES. Broderick Yo, CASE MANAGEMENT DCPIA - Discharge Planning Initial Assessment Updated by [id number]: Broderick Yo on 03/13/18 2:50 pm * Is the patient Alert and Oriented? Yes * How many steps to enter\\exit or inside your home? NONE * PCP DR. BARRERA * Pharmacy [facility] OR [place] [facility] * Preadmission Environment Home with Family * ADLs Independent * Equipment Cane * Other Equipment [facility] - MEDICAL EQUIPMENT PROVIDER * List name and contact numbers for known caregivers / representatives who currently or will assist patient after discharge: RILEY DIETZ, FRIEND, * Verbal permission to speak to the caregivers and representatives has been obtained from the patient. No * Community resources currently utilized None * Please name any agencies selected above. PT HAD BEEN SET UP WITH [employer], THEY CALLED PT ON THE PHONE, HE DID NOT CALL THEM BACK, THEY CAME OUT TO THE HOME AND WERE SENT AWAY BY ROOMMATE WHILE PT WAS SLEEPING. * Additional services required to return to the preadmission environment? Yes * Can the patient safely return to the preadmission environment? Yes * Has this patient been hospitalized within the prior 30 days at any hospital? Yes Coverage Notice Reviewer: [id number] - Gladysterrie Mary Notice Issued Date-Time: 03/13/2018 15:00 Notice Type: Medicare Outpatient Observation Notice Notice Delivered To: Patient Relationship to Patient: Self Offset Press Operator Apprentice Name: Delivery Method: HAND - Hand Delivered Colette Days: Prior Verbal Notification: Recipient Understood Notice: Yes Recipient Signature: Yes Med Rec Note Co-signed by Attending: Coverage Notice Comment: Reviewer: [id number] - Broderick Yo Notice Issued Date-Time: 03/13/2018 12:20 Notice Type: Patient Choice Letter Notice Delivered To: Patient Relationship to Patient: Offset Press Operator Apprentice Name: Delivery Method: HAND - Hand Delivered Colette Days: Prior Verbal Notification: Recipient Understood Notice: Yes Recipient Signature: Yes Med Rec Note Co-signed by Attending: Coverage Notice Comment: NO REHAB SNF PREFERENCE IN [place] Last DP export: 03/18/18 8:39 am Patient Name: MAKENZIE DESAI Page 38786 at 0953 All edits/amendments must be made on the electronic document DICTATION DATE: 03/18/18951 ARTIST SUSPECT: OSMEL 03/18/18951 RPT#: [id number] DC DATE: STATUS: ADM IN [facility] [address] [place] [address] END OF REPORT
[2018-03-18 11:40] VITALS: BP 123/61
[2018-03-18 15:07] VITALS: BP 126/74
--- NOTE | 2018-03-18 16:24 | MORECARE ---
CASE MANAGEMENT DISCHARGE SUMMARY PATIENT: MAKENZIE DESAI UNIT: [id number] ADM DATE: 03/14/18 AGE: 67 : [birth year] SEX: M ROOM/BED: D.2140 AUTHOR: СЕРГЕЙ,DOC PHYSICIAN: REFERRING PHYSICIAN: LIVIER MCCLOUD MD DATE OF SERVICE: 03/18/18 Discharge Plan Patient Name: MAKENZIE DESAI Facility: [facility]:[place] : 07/23/1950 Planned Disposition: Fdc Facility Anticipated Discharge Date: 03/14/18 Discharge Date: Expected LOS: 1 Initial Reviewer: [id number] Initial Review Date: 03/13/2018 Generated: 03/18/18 5:24 pm Comments DCP- Discharge Planning Updated by [email or web address]: Gladys Mary on 03/18/18 3:[address] RECEIVED NOTIFICATION THAT THE PATIENT HAS CALLED [facility] AND FILED AN APPEAL IN REGARDS TO HIS PLANNED DISCHARGE TO SNF TOMORROW. ONCE I RECEIVED HIS CASE ID#, THE DETAILED NOTICE OF DISCHARGE WAS TYPED UP AND PRESENTED TO THE PATIENT. HE SIGNED MY COPY AND HIS IS AT BEDSIDE. (THE PATIENT IS NO STRANGER TO FILING APPEALS. HE DID SO HIS LAST STAY AND AFTER THE DETAILED NOTICE OF DISCHARGE WAS COMPLETED, HE LEFT AGAINST MEDICAL ADVICE). HIS CHART WAS COPIED PER THE FAXED REQUEST AND FAXED TO [facility] AT THE PROVIDED NUMBER. THE ORIGINAL, SIGNED, DETAILED NOTICE OF DISCHARGE WAS STICKERED AND PLACED IN HIS CHART. HE DENIED QUESTIONS. I NOTIFIED YANNA PERKINS APN WITH DR TAPIA OF THE PATIENTS APPEAL TO PLANNED DISCHARGE TOMORROW AND REMINDED HER THAT THAT MEANS HE CANNOT BE DISCHARGED UNTIL THEY MAKE THEIR DETERMINATION OR HE DEMANDS TO BE DISCHARGED. WE WILL WAIT ON THIER DETERMINATION. DCP- Discharge Planning Updated by [id number]: Broderick Yo on 03/18/18 8:[address] Patient Name: MAKENZIE DESAI Encounter No: [id number] : 07-23-1950 Primary Insurance: MEDICARE A & B Anticipated DC Date: 03-14-2018 Planned Disposition: Fdc Facility External Planned Provider: [facility], MEDICARE REHAB [facility] DCP follow-up note: CM RECEIVED MESSAGE FROM [facility], THEY WILL ACCEPT PT FOR REHAB AT DISCHARGE. PT NOTIFIED AND IN AGREEMENT WITH REHAB AT DISCHARGE. IMPORTANT MESSAGE FROM MEDICARE PROVIDED AND EXPLAINED. PT THINKS HE WILL [facility]ING [facility]. CM WAITING CLAIFICATION FROM [facility] TO WHICH BUILDING, NORTH OR SOUTH, PT WILL ADMIT TO FOR REHAB. CM RECEIVED MESSAGE FROM [facility], PT WILL ADMIT TO [facility], ROOM [address]. FOR DISCHARGE, FAX DISCHARGE INFORMATION TO THE [facility], , NURSE REPORT TO BE CALLED TO THE [facility] AT [phone]. [address] [facility] TO ARRANGE VAN TRANSPORATION. Broderick Yo. CASE MANAGEMENT DCP- Discharge Planning Updated by [id number]: Broderick Yo on 03/18/18 7:[address] Patient Name: MAKENZIE DESAI Encounter No: [id number] : 07-23-1950 Primary Insurance: MEDICARE A & B Anticipated DC Date: 03-14-2018 Planned Disposition: Fdc Facility External Planned Provider: [facility], MEDICARE REHAB BED DISCHARGE PLANNING COMMENTS: CM REQUESTED REHAB ADMISSION UPDATE FROM [facility], . CM FAXED REFERRAL UPDATE TO THE [facility]IA [facility] AT [phone]. CM WAITING ADMISSION DETERMINATION FROM [facility] FOR REHAB SERVICES. Broderick Yo, CASE MANAGEMENT DCP- Discharge Planning Updated by [email or web address]: Broderick Yo on 03/16/18 10:[address] Patient Name: MAKENZIE DESAI Encounter No: [id number] : 07-23-1950 Primary Insurance: MEDICARE A & B Anticipated DC Date: 03-14-2018 Planned Disposition: Fdc Facility External Planned Provider:[facility], MEDICARE REHAB BED DISCHARGE PLANNING COMMENTS: CM REQUESTED REHAB ADMISSION UPDATE FROM [facility], . CM FAXED REFERRAL UPDATE TO THE [facility] AT [phone]. CM WAITING ADMISSION DETERMINATION FROM [facility] FOR REHAB SERVICES. Broderick Yo, CASE MANAGEMENT DCP- Discharge Planning Updated by [id number]: Broderick Yo on 03/13/18 2:[address] Patient Name: MAKENZIE DESAI Encounter No: [id number] : 07-23-1950 Primary Insurance: MEDICARE A & B Anticipated DC Date: 03-16-2018 Planned Disposition: Fdc Facility External Planned Provider: [facility], MEDICARE REHAB BED DISCHARGE PLANNING COMMENTS: CM RECEIVED ORDER FOR INPATIENT REHAB PRESCREENING. CM RECEIVED MESSAGE FROM [facility]AL[facility] OF [facility], THEY WILL NOT ACCEPT PT DUE TO HISTORY OF NON COMPLIANCE. CM MET WITH PT IN ROOM TO DISCUSS DISCHARGE PLANNING AND NEEDS. PT REPORTS LIVING AT HOME INDEPENDENTLY WITH HIS ROOMMATE; ALSO IN THE HOME AT TIMES IS PT'S ADULT DAUGHTER. PT HAS A CANE FROM THE [place] AND NO MEDICAL EQUIPMENT PROVIDER PREFERENCE. PT HAS NO OUTSIDE SERVICES ASSISTING IN THE HOME. PT STATES THAT [facility] CALLED HIM AND HE DID NOT CALL THEM BACK, THEY CAME OUT AND WHILE PT WAS SLEEPING, HIS ROOMMATE SENT THEM AWAY. PT REPORTS HIS ABILITY TO WALK HAS DECREASED SIGNIFICANTLY AND HE IS IN THE HOSPITAL TO "GET MY LEGS UNDER CONTROL". PT REPORTS HE DOES NOT PLAN TO RETURN TO HIS FRIENDS HOME IF HE IS ABLE TO FIND ANOTHER "ADDRESS". CM DISCUSSED AVAILABILITY OF HOME HEALTH, REHAB SERVICES AND MEDICAL EQUIPMENT. PT DENIES NEED FOR SENIOR LIVING CARE, REPORTS HE WAS APPROVED FOR [place] ASSISTED IN [place] IF HE EVER WANTED TO GO. PT REPORTS IF INPATIENT REHAB WILL NOT ACCEPT, HE NEEDS REHAB AND WOULD LIKE A LONG TERM FACILITY IN [place] FOR REHAB ONLY. CHOICE SIGNED WITH NO PROVIDER PREFERENCE. CM NOTIFIED [facility] OF THE [facility], , OF REHAB REFERRAL, FAXED REFERRAL TO THE [facility] AT [phone]. CM WAITING ADMISSION DETERMINATION FROM THE [facility] FOR REHAB SERVICES. Broderick Yo, CASE MANAGEMENT DCPIA - Discharge Planning Initial Assessment Updated by [id number]: Broderick Yo on 03/13/18 2:50 pm * Is the patient Alert and Oriented? Yes * How many steps to enter\\exit or inside your home? NONE * PCP DR. BARRERA * Pharmacy [facility] * Preadmission Environment Home with Family * ADLs Independent * Equipment Cane * Other Equipment [facility] - MEDICAL EQUIPMENT PROVIDER * List name and contact numbers for known caregivers / representatives who currently or will assist patient after discharge: RILEY J LUIS, FRIEND, * Verbal permission to speak to the caregivers and representatives has been obtained from the patient. No * Community resources currently utilized None * Please name any agencies selected above. PT HAD BEEN SET UP WITH [facility], THEY CALLED PT ON THE PHONE, HE DID NOT CALL THEM BACK, THEY CAME OUT TO THE HOME AND WERE SENT AWAY BY ROOMMATE WHILE PT WAS SLEEPING. * Additional services required to return to the preadmission environment? Yes * Can the patient safely return to the preadmission environment? Yes * Has this patient been hospitalized within the prior 30 days at any hospital? Yes Coverage Notice Reviewer: [id number] Christian Mary Notice Issued Date-Time: 03/13/2018 15:00 Notice Type: Medicare Outpatient Observation Notice Notice Delivered To: Patient Relationship to Patient: Self Geriatrics Physician Name: Delivery Method: HAND - Hand Delivered Colette Days: Prior Verbal Notification: Recipient Understood Notice: Yes Recipient Signature: Yes Med Rec Note Co-signed by Attending: Coverage Notice Comment: Reviewer: [id number] Christian Yo Notice Issued Date-Time: 03/13/2018 12:20 Notice Type: Patient Choice Letter Notice Delivered To: Patient Relationship to Patient: Geriatrics Physician Name: Delivery Method: HAND - Hand Delivered Colette Days: Prior Verbal Notification: Recipient Understood Notice: Yes Recipient Signature: Yes Med Rec Note Co-signed by Attending: Coverage Notice Comment: NO REHAB SNF PREFERENCE IN [place] Reviewer: [id number] Christian Yo Notice Issued Date-Time: 03/18/2018 9:30 Notice Type: IM Discharge Notice Notice Delivered To: Patient Relationship to Patient: Geriatrics Physician Name: Delivery Method: HAND - Hand Delivered Colette Days: Prior Verbal Notification: Recipient Understood Notice: Yes Recipient Signature: Yes Med Rec Note Co-signed by Attending: Coverage Notice Comment: Last DP export: 03/18/18 8:53 am Patient Name: MAKENZIE DESAI Page [id number] at 1624 All edits/amendments must be made on the electronic document DICTATION DATE: 03/18/181623 [employer] OFFICER: OSMEL 03/18/181623 RPT#: [id number] DC DATE: STATUS: ADM IN [facility] [address] [place] [address] END OF REPORT
--- NOTE | 2018-03-18 17:24 | MORECARE ---
CASE MANAGEMENT DISCHARGE SUMMARY PATIENT: MAKENZIE DESAI UNIT: [id number] ADM DATE: 03/14/18 AGE: 67 : [birth year] SEX: M ROOM/BED: D.2140 AUTHOR: СЕРГЕЙ,DOC PHYSICIAN: REFERRING PHYSICIAN: LIVIER MCCLOUD MD DATE OF SERVICE: 03/18/18 Discharge Plan Patient Name: MAKENZIE DESAI Facility: [facility]:[place] : 07/23/1950 Planned Disposition: Halfway Facility Anticipated Discharge Date: 03/18/18 Discharge Date: 03/18/2018 Expected LOS: 4 Initial Reviewer: [id number] Initial Review Date: 03/13/2018 Generated: 03/18/18 6:24 pm Comments DCP- Discharge Planning Updated by [id number]: Gladys Mary on 03/18/18 3:[address] RECEIVED NOTIFICATION THAT THE PATIENT HAS CALLED [facility] AND FILED AN APPEAL IN REGARDS TO HIS PLANNED DISCHARGE TO SNF TOMORROW. ONCE I RECEIVED HIS CASE ID#, THE DETAILED NOTICE OF DISCHARGE WAS TYPED UP AND PRESENTED TO THE PATIENT. HE SIGNED MY COPY AND HIS IS AT BEDSIDE. (THE PATIENT IS NO STRANGER TO FILING APPEALS. HE DID SO HIS LAST STAY AND AFTER THE DETAILED NOTICE OF DISCHARGE WAS COMPLETED, HE LEFT AGAINST MEDICAL ADVICE). HIS CHART WAS COPIED PER THE FAXED REQUEST AND FAXED TO [facility] AT THE PROVIDED NUMBER. THE ORIGINAL, SIGNED, DETAILED NOTICE OF DISCHARGE WAS STICKERED AND PLACED IN HIS CHART. HE DENIED QUESTIONS. I NOTIFIED YANNA PERKINS APN WITH DR TAPIA OF THE PATIENTS APPEAL TO PLANNED DISCHARGE TOMORROW AND REMINDED HER THAT THAT MEANS HE CANNOT BE DISCHARGED UNTIL THEY MAKE THEIR DETERMINATION OR HE DEMANDS TO BE DISCHARGED. WE WILL WAIT ON THIER DETERMINATION. DCP- Discharge Planning Updated by [email or web address]: Broderick Yo on 03/18/18 8:[address] Patient Name: MAKENZIE DESAI Encounter No: [id number] : 07-23-1950 Primary Insurance: MEDICARE A & B Anticipated DC Date: 03-14-2018 Planned Disposition: Halfway Facility External Planned Provider: [facility], MEDICARE REHAB [facility] DCP follow-up note: CM RECEIVED MESSAGE FROM [facility], THEY WILL ACCEPT PT FOR REHAB AT DISCHARGE. PT NOTIFIED AND IN AGREEMENT WITH REHAB AT DISCHARGE. IMPORTANT MESSAGE FROM MEDICARE PROVIDED AND EXPLAINED. PT THINKS HE WILL BE GOING [facility]. CM WAITING CLAIFICATION FROM [facility] TO WHICH BUILDING, NOR[facility] OR [facility], PT WILL ADMIT TO FOR REHAB. CM RECEIVED MESSAGE FROM [facility], PT WILL ADMIT TO [facility], ROOM [address]. FOR DISCHARGE, FAX DISCHARGE INFORMATION TO THE [facility], , NURSE REPORT TO BE CALLED TO THE [facility] AT [phone]. THE [facility] TO ARRANGE VAN TRANSPORATION. Broderick Yo. CASE MANAGEMENT DCP- Discharge Planning Updated by [id number]: Broderick Yo on 03/18/18 7:[address] Patient Name: MAKENZIE DESAI Encounter No: [id number] : 07-23-1950 Primary Insurance: MEDICARE A & B Anticipated DC Date: 03-14-2018 Planned Disposition: Halfway Facility External Planned Provider: [facility], MEDICARE REHAB BED DISCHARGE PLANNING COMMENTS: CM REQUESTED REHAB ADMISSION UPDATE FROM [facility], . CM FAXED REFERRAL UPDATE TO THE [facility]IA [facility] AT [phone]. CM WAITING ADMISSION DETERMINATION FROM [facility] FOR REHAB SERVICES. Broderick Yo, CASE MANAGEMENT DCP- Discharge Planning Updated by [id number]: Broderick Yo on 03/16/18 10:[address] Patient Name: MAKENZIE DESAI Encounter No: [id number] : 07-23-1950 Primary Insurance: MEDICARE A & B Anticipated DC Date: 03-14-2018 Planned Disposition: Halfway Facility External Planned Provider:[facility], MEDICARE REHAB BED DISCHARGE PLANNING COMMENTS: CM REQUESTED REHAB ADMISSION UPDATE FROM [facility], . CM FAXED REFERRAL UPDATE TO THE [facility] AT [phone]. CM WAITING ADMISSION DETERMINATION FROM [facility] FOR [facility]. Broderick Yo, CASE MANAGEMENT DCP- Discharge Planning Updated by [id number]: Broderick Yo on 03/13/18 2:[address] Patient Name: MAKENZIE DESAI Encounter No: [id number] : 07-23-1950 Primary Insurance: MEDICARE A & B Anticipated DC Date: 03-16-2018 Planned Disposition: Halfway Facility External Planned Provider: [facility], MEDICARE REHAB BED DISCHARGE PLANNING COMMENTS: CM RECEIVED ORDER FOR INPATIENT REHAB PRESCREENING. CM RECEIVED MESSAGE FROM [facility], THEY WILL NOT ACCEPT PT DUE TO HISTORY OF NON COMPLIANCE. CM MET WITH PT IN ROOM TO DISCUSS DISCHARGE PLANNING AND NEEDS. PT REPORTS LIVING AT HOME INDEPENDENTLY WITH HIS ROOMMATE; ALSO IN THE HOME AT TIMES IS PT'S ADULT DAUGHTER. PT HAS A CANE FROM [place] AND NO MEDICAL EQUIPMENT PROVIDER PREFERENCE. PT HAS NO OUTSIDE SERVICES ASSISTING IN THE HOME. PT STATES THAT [facility] CALLED HIM AND HE DID NOT CALL THEM BACK, THEY CAME OUT AND WHILE PT WAS SLEEPING, HIS ROOMMATE SENT THEM AWAY. PT REPORTS HIS ABILITY TO WALK HAS DECREASED SIGNIFICANTLY AND HE IS IN THE HOSPITAL TO "GET MY LEGS UNDER CONTROL". PT REPORTS HE DOES NOT PLAN TO RETURN TO HIS FRIENDS HOME IF HE IS ABLE TO FIND ANOTHER "ADDRESS". CM DISCUSSED AVAILABILITY OF HOME HEALTH, REHAB SERVICES AND MEDICAL EQUIPMENT. PT DENIES NEED FOR JAIL CARE, REPORTS HE WAS APPROVED FOR [place] ASSISTED IN [place] IF HE EVER WANTED TO GO. PT REPORTS IF INPATIENT REHAB WILL NOT ACCEPT, HE NEEDS REHAB AND WOULD LIKE A FDC FACILITY IN [place] FOR REHAB ONLY. CHOICE SIGNED WITH NO PROVIDER PREFERENCE. CM NOTIFIED [facility] OF THE [facility], , OF REHAB REFERRAL, FAXED REFERRAL TO THE [facility] AT [phone]. CM WAITING ADMISSION DETERMINATION FROM THE [facility] FOR REHAB SERVICES. Broderick Yo, CASE MANAGEMENT DCPIA - Discharge Planning Initial Assessment Updated by [id number]: Broderick Yo on 03/13/18 2:50 pm * Is the patient Alert and Oriented? Yes * How many steps to enter\\exit or inside your home? NONE * PCP DR. BARRERA * Pharmacy [facility] [place] [facility] * Preadmission Environment Home with Family * ADLs Independent * Equipment Cane * Other Equipment [facility] - MEDICAL EQUIPMENT PROVIDER * List name and contact numbers for known caregivers / representatives who currently or will assist patient after discharge: RILEYEvangelina DIETZ, FRIEND, * Verbal permission to speak to the caregivers and representatives has been obtained from the patient. No * Community resources currently utilized None * Please name any agencies selected above. PT HAD BEEN SET UP WITH [id number], THEY CALLED PT ON THE PHONE, HE DID NOT CALL THEM BACK, THEY CAME OUT TO THE HOME AND WERE SENT AWAY BY ROOMMATE WHILE PT WAS SLEEPING. * Additional services required to return to the preadmission environment? Yes * Can the patient safely return to the preadmission environment? Yes * Has this patient been hospitalized within the prior 30 days at any hospital? Yes Coverage Notice Reviewer: [id number] Christian Mary Notice Issued Date-Time: 03/13/2018 15:00 Notice Type: Medicare Outpatient Observation Notice Notice Delivered To: Patient Relationship to Patient: Self Tube Skiver Name: Delivery Method: HAND - Hand Delivered Colette Days: Prior Verbal Notification: Recipient Understood Notice: Yes Recipient Signature: Yes Med Rec Note Co-signed by Attending: Coverage Notice Comment: Reviewer: [id number] Christian Yo Notice Issued Date-Time: 03/13/2018 12:20 Notice Type: Patient Choice Letter Notice Delivered To: Patient Relationship to Patient: Tube Skiver Name: Delivery Method: HAND - Hand Delivered Colette Days: Prior Verbal Notification: Recipient Understood Notice: Yes Recipient Signature: Yes Med Rec Note Co-signed by Attending: Coverage Notice Comment: NO REHAB SNF PREFERENCE IN [place] Reviewer: [email or web address] Christian Yo Notice Issued Date-Time: 03/18/2018 9:30 Notice Type: IM Discharge Notice Notice Delivered To: Patient Relationship to Patient: Tube Skiver Name: Delivery Method: HAND - Hand Delivered Colette Days: Prior Verbal Notification: Recipient Understood Notice: Yes Recipient Signature: Yes Med Rec Note Co-signed by Attending: Coverage Notice Comment: Last DP export: 03/18/18 3:24 pm Patient Name: MAKENZIE DESAI Page [id number] at 1724 All edits/amendments must be made on the electronic document DICTATION DATE: 03/18/181723 LEVEL VIAL MARKER: OSMEL 03/18/181723 RPT#: [id number] DC DATE:03/18/18 STATUS: DIS IN [facility] [address] [place] [address] END OF REPORT
--- NOTE | 2018-03-18 17:32 | MORECARE ---
CASE MANAGEMENT DISCHARGE SUMMARY PATIENT: MAKENZIE DESAI UNIT: [id number] ADM DATE: 03/14/18 AGE: 67 : [birth year] SEX: M ROOM/BED: D.2140 AUTHOR: СЕРГЕЙ,DOC PHYSICIAN: REFERRING PHYSICIAN: LIVIER MCCLOUD MD DATE OF SERVICE: 03/18/18 Discharge Plan Patient Name: MAKENZIE DESAI Facility: [facility]:[place] : 07/23/1950 Planned Disposition: [facility] Facility Anticipated Discharge Date: 03/18/18 Discharge Date: 03/18/2018 Expected LOS: 4 Initial Reviewer: [id number] Initial Review Date: 03/13/2018 Generated: 03/18/18 6:32 pm Comments DCP- Discharge Planning Updated by [email or web address]: Broderick Gonzalez on 03/18/18 4:[address] Patient Name: MAKENZIE DESAI Encounter No: [id number] : 07-23-1950 Primary Insurance: MEDICARE A & B Anticipated DC Date: 03-18-2018 Planned Disposition: LEFT AGAINST MEDICAL ADVICE DCP follow-up note: CM NOTIFIED BY HIRE CAR DRIVER THAT PT IS SIGNING OUT AGAINST MEDICAL ADVICE. CM OBSERVED PT AND HIS DAUGHTER TALKING VERY LOUDLY IN ROOM AND APPEARED TO BE ARGUING. SECURITY PAGED OVERHEAD, PT'S DAUGHTER LEFT ROOM QUICKLY. CM ENTERED ROOM, HEARD PT TELL THE NURSE THAT HE NEEDS HELP WITH GETTING BAGS DOWNSTAIRS TO LEAVE. BEDSIDE NURSE ASKED FOR CART TO ASSIST. CM NOTIFIED REFLECTOR DRILLER AND DEBURRER. CM NOTIFIED [facility], , THAT PT LEFT HOSPITAL AGAINST MEDICAL ADVICE. CM NOTIFIED SHORT TIME LATER THAT PT LEFT IN [place] WITH HIS DAUGHTER. BRODERICK GONZALEZ, CASE MANAGEMENT DCP- Discharge Planning Updated by [id number]: Gladys Mary on 03/18/18 3:[address] RECEIVED NOTIFICATION THAT THE PATIENT HAS CALLED [facility] AND FILED AN APPEAL IN REGARDS TO HIS PLANNED DISCHARGE TO SNF TOMORROW. ONCE I RECEIVED HIS CASE ID#, THE DETAILED NOTICE OF DISCHARGE WAS TYPED UP AND PRESENTED TO THE PATIENT. HE SIGNED MY COPY AND HIS IS AT BEDSIDE. (THE PATIENT IS NO STRANGER TO FILING APPEALS. HE DID SO HIS LAST STAY AND AFTER THE DETAILED NOTICE OF DISCHARGE WAS COMPLETED, HE LEFT AGAINST MEDICAL ADVICE). HIS CHART WAS COPIED PER THE FAXED REQUEST AND FAXED TO [facility] AT THE PROVIDED NUMBER. THE ORIGINAL, SIGNED, DETAILED NOTICE OF DISCHARGE WAS STICKERED AND PLACED IN HIS CHART. HE DENIED QUESTIONS. I NOTIFIED YANNA PERKINS APN WITH DR TAPIA OF THE PATIENTS APPEAL TO PLANNED DISCHARGE TOMORROW AND REMINDED HER THAT THAT MEANS HE CANNOT BE DISCHARGED UNTIL THEY MAKE THEIR DETERMINATION OR HE DEMANDS TO BE DISCHARGED. WE WILL WAIT ON THIER DETERMINATION. DCP- Discharge Planning Updated by [id number]: Broderick Gonzalez on 03/18/18 8:[address] Patient Name: MAKENZIE DESAI Encounter No: [id number] : 07-23-1950 Primary Insurance: MEDICARE A & B Anticipated DC Date: 03-14-2018 Planned Disposition: [facility] Facility External Planned Provider: [facility], MEDICARE REH BED DCP follow-up note: CM RECEIVED MESSAGE FROM [facility], THEY WILL ACCEPT PT FOR REHAB AT DISCHARGE. PT NOTIFIED AND IN AGREEMENT WITH REHAB AT DISCHARGE. IMPORTANT MESSAGE FROM MEDICARE PROVIDED AND EXPLAINED. PT THINKS HE WILL BE GOING TO [facility]. CM WAITING CLAIFICATION FROM [facility] TO WHICH BUILDING, NORTH OR SOUTH, PT WILL ADMIT TO FOR REHAB. CM RECEIVED MESSAGE FROM [facility], PT WILL ADMIT TO SOUTH BUILDING, ROOM 501. FOR DISCHARGE, FAX DISCHARGE INFORMATION TO [facility], , NURSE REPORT TO BE CALLED TO THE [facility] AT [phone]. [facility] TO ARRANGE VAN TRANSPORATION. Broderick Gonzalez. CASE MANAGEMENT DCP- Discharge Planning Updated by [id number]: Broderick Gonzalez on 03/18/18 7:[address] Patient Name: MAKENZIE DESAI Encounter No: [id number] : 07-23-1950 Primary Insurance: MEDICARE A & B Anticipated DC Date: 03-14-2018 Planned Disposition: [facility] Facility External Planned Provider: [facility], MEDICARE REHAB BED DISCHARGE PLANNING COMMENTS: CM REQUESTED REHAB ADMISSION UPDATE FROM [facility], . CM FAXED REFERRAL UPDATE TO [facility] V[facility] AT [phone]. CM WAITING ADMISSION DETERMINATION FROM [facility] FOR [facility]. NIKKI Naik MANAGEMENT DCP- Discharge Planning Updated by [email or web address]: Broderick Gonzalez on 03/16/18 10:[address] Patient Name: MAKENZIE DESAI Encounter No: [id number] : 07-23-1950 Primary Insurance: MEDICARE A & B Anticipated DC Date: 03-14-2018 Planned Disposition: [facility] Facility External Planned Provider:[facility], MEDICARE REHAB BED DISCHARGE PLANNING COMMENTS: CM REQUESTED REHAB ADMISSION UPDATE FROM [facility], . CM FAXED REFERRAL UPDATE TO [facility] VIA [facility] AT [phone]. CM WAITING ADMISSION DETERMINATION FROM [facility] FOR [facility] SERVICES. NIKKI Naik DCP- Discharge Planning Updated by [email or web address]: Broderick Gonzalez on 03/13/18 2:[address] Patient Name: MAKENZIE DESAI Encounter No: [id number] : 07-23-1950 Primary Insurance: MEDICARE A & B Anticipated DC Date: 03-16-2018 Planned Disposition: [facility] Facility External Planned Provider: [facility], MEDICARE REHAB BED DISCHARGE PLANNING COMMENTS: CM RECEIVED ORDER FOR INPATIENT REHAB PRESCREENING. CM RECEIVED MESSAGE FROM [facility], THEY WILL NOT ACCEPT PT DUE TO HISTORY OF NON COMPLIANCE. CM MET WITH PT IN ROOM TO DISCUSS DISCHARGE PLANNING AND NEEDS. PT REPORTS LIVING AT HOME INDEPENDENTLY WITH HIS ROOMMATE; ALSO IN THE HOME AT TIMES IS PT'S ADULT DAUGHTER. PT HAS [place] CANE FROM THE [place] AND NO MEDICAL EQUIPMENT PROVIDER PREFERENCE. PT HAS NO OUTSIDE SERVICES ASSISTING IN THE HOME. PT STATES THAT [facility] CALLED HIM AND HE DID NOT CALL THEM BACK, THEY CAME OUT AND WHILE PT WAS SLEEPING, HIS ROOMMATE SENT THEM AWAY. PT REPORTS HIS ABILITY TO WALK HAS DECREASED SIGNIFICANTLY AND HE IS IN THE HOSPITAL TO "GET MY LEGS UNDER CONTROL". PT REPORTS HE DOES NOT PLAN TO RETURN TO HIS FRIENDS HOME IF HE IS ABLE TO FIND ANOTHER "ADDRESS". CM DISCUSSED AVAILABILITY OF HOME HEALTH, REHAB SERVICES AND MEDICAL EQUIPMENT. PT DENIES NEED FOR HALFWAY CARE, REPORTS HE WAS APPROVED FOR [facility] ASSISTED IN [place] [employer] IF HE EVER WANTED TO GO. PT REPORTS IF INPATIENT REHAB WILL NOT ACCEPT, HE NEEDS REHAB AND WOULD LIKE A ASSISTED FACILITY IN [place] FOR REHAB ONLY. CHOICE SIGNED WITH NO PROVIDER PREFERENCE. CM NOTIFIED [facility] OF [facility], , OF REHAB REFERRAL, FAXED REFERRAL TO [facility] AT [phone]. CM WAITING ADMISSION DETERMINATION FROM [facility] FOR REHAB SERVICES. Broderick Gonzalez, CASE MANAGEMENT DCPIA - Discharge Planning Initial Assessment Updated by [id number]: Broderick Gonzalez on 03/13/18 2:50 pm * Is the patient Alert and Oriented? Yes * How many steps to enter\\exit or inside your home? NONE * PCP DR. BARRERA * Pharmacy [facility] OR [facility] * Preadmission Environment Home with Family * ADLs Independent * Equipment Cane * Other Equipment [facility] - MEDICAL EQUIPMENT PROVIDER * List name and contact numbers for known caregivers / representatives who currently or will assist patient after discharge: RILEY DIETZ, FRIEND, * Verbal permission to speak to the caregivers and representatives has been obtained from the patient. No * Community resources currently utilized None * Please name any agencies selected above. PT HAD BEEN SET UP WITH [facility], THEY CALLED PT ON THE PHONE, HE DID NOT CALL THEM BACK, THEY CAME OUT TO THE HOME AND WERE SENT AWAY BY ROOMMATE WHILE PT WAS SLEEPING. * Additional services required to return to the preadmission environment? Yes * Can the patient safely return to the preadmission environment? Yes * Has this patient been hospitalized within the prior 30 days at any hospital? Yes Coverage Notice Reviewer: [id number] - Gladys Lithia Notice Issued Date-Time: 03/13/2018 15:00 Notice Type: Medicare Outpatient Observation Notice Notice Delivered To: Patient Relationship to Patient: Self Validation Software Facilitator Name: Delivery Method: HAND - Hand Delivered Colette Days: Prior Verbal Notification: Recipient Understood Notice: Yes Recipient Signature: Yes Med Rec Note Co-signed by Attending: Coverage Notice Comment: Reviewer: [id number] - Broderick Gonzalez Notice Issued Date-Time: 03/13/2018 12:20 Notice Type: Patient Choice Letter Notice Delivered To: Patient Relationship to Patient: Validation Software Facilitator Name: Delivery Method: HAND - Hand Delivered Colette Days: Prior Verbal Notification: Recipient Understood Notice: Yes Recipient Signature: Yes Med Rec Note Co-signed by Attending: Coverage Notice Comment: NO REHAB SNF PREFERENCE IN [place] Reviewer: [id number] Christian Gonzalez Notice Issued Date-Time: 03/18/2018 9:30 Notice Type: IM Discharge Notice Notice Delivered To: Patient Relationship to Patient: Validation Software Facilitator Name: Delivery Method: HAND - Hand Delivered Colette Days: Prior Verbal Notification: Recipient Understood Notice: Yes Recipient Signature: Yes Med Rec Note Co-signed by Attending: Coverage Notice Comment: Last DP export: 03/18/18 4:24 pm Patient Name: MAKENZIE DESAI Page 14286 at 1732 All edits/amendments must be made on the electronic document DICTATION DATE: 03/18/181731 AUDIO OPERATOR: OSMEL 03/18/181731 RPT#: [id number] DC DATE:03/18/18 STATUS: DIS IN [facility] [address] [facility] [place] [address] END OF REPORT
== END 2018-03-18 16:55 | disposition left against medical advice (07) | DRG 371 ==
LOC: D.ER 21:28 → OBSVTIME 23:16 → D.EDHOLD 23:16 → D.M2 23:16
PROVIDERS: Emergency Medicine; Internal Medicine Gastroenterology; ADMIT Emergency Medicine
PROC: 0DB68ZX Excision of Stomach, Via Natural or Artificial Opening Endoscopic, Diagnostic (ICD-10-PCS; 2018-03-18)
PROC: 0DB98ZX Excision of Duodenum, Via Natural or Artificial Opening Endoscopic, Diagnostic (ICD-10-PCS; principal; 2018-03-18 08:50)
DX: A04.72 Enterocolitis due to Clostridium difficile, not specified as recurrent (principal); J96.21 Acute and chronic respiratory failure with hypoxia; E43 Unspecified severe protein-calorie malnutrition; J44.1 Chronic obstructive pulmonary disease with (acute) exacerbation; F17.213 Nicotine dependence, cigarettes, with withdrawal; I82.402 Acute embolism and thrombosis of unspecified deep veins of left lower extremity; L03.119 Cellulitis of unspecified part of limb; I48.91 Unspecified atrial fibrillation; G62.9 Polyneuropathy, unspecified; I12.9 Hypertensive chronic kidney disease with stage 1 through stage 4 chronic kidney disease, or unspecified chronic kidney disease; N18.9 Chronic kidney disease, unspecified; K21.9 Gastro-esophageal reflux disease without esophagitis; Z79.01 Long term (current) use of anticoagulants; G47.33 Obstructive sleep apnea (adult) (pediatric); Z68.29 Body mass index [BMI] 29.0-29.9, adult; D64.9 Anemia, unspecified; K29.70 Gastritis, unspecified, without bleeding; K31.7 Polyp of stomach and duodenum; Z86.711 Personal history of pulmonary embolism

== ENCOUNTER 2018-04-12 11:44 | Observation (INO) | payer MEDICARE ==
[~2018-04-12] VITALS: Ht 182.9 cm; Wt 102.1 kg
[2018-04-12 12:21] LABS: BASOPHILS 0.3 % (0-2); EOSINOPHILS 6.1 % (0-7); HEMATOCRIT 37.5 % (42.0-54.0); HEMOGLOBIN 11.9 g/dL (13.5-17.5); IMMATURE GRANULOCYTES 0.5 % (0-5); LYMPHOCYTES 18.8 % (15-50); MCH 28.9 pg (26.0-34.0); MCHC 31.7 g/dL (31.0-37.0); MEAN PLATELET VOLUME 10.1 fL (7.4-10.4); MONOCYTES 9.6 % (2-11); NEUTROPHILS 64.7 % (40-80); RBC 4.12 10x6/uL (4.20-6.10); RDW 16.3 % (11.5-14.5); WBC 6.6 10x3/uL (4.8-10.8)
[2018-04-12 12:33] LABS: PLATELET COUNT 185 10x3/uL (130-400)
[2018-04-12 12:34] LABS: ALBUMIN 1.6 g/dL (3.4-5.0); ALKALINE PHOSPHATASE 102 U/L (46-116); ALT (SGPT) 24 U/L (10-68); BILIRUBIN - TOTAL 0.12 mg/dL (0.2-1.3); CALC OSMOLALITY 283 mosm/kg (275-300); CALCIUM 7.7 mg/dL (8.5-10.1); CARBON DIOXIDE 25.7 mmol/L (21.0-32.0); CHLORIDE - SERUM 110 mmol/L (98-107); CREATININE - SERUM 0.7 mg/dL (0.6-1.3); GLUCOSE 87 mg/dL (74-106); POTASSIUM - SERUM 4.2 mmol/L (3.5-5.1); PROTEIN - SERUM 5.9 g/dL (6.4-8.2); SODIUM 143 mmol/L (136-145); UREA NITROGEN 13 mg/dL (7-18); eGFR NON AFRICAN AMERICAN > 90 mL/min (90-120)
[2018-04-12 13:51] VITALS: BP 147/78
--- NOTE | 2018-04-12 14:31 | NUR ---
CALLED THE [facility], TO LET THEM KNOW PT IS GOING TO BE ADMITTED TO HOSPITAL.
[2018-04-12 14:42] VITALS: BP 147/78
[2018-04-12 15:04] LABS: APPEARANCE CLEAR (CLEAR); BILIRUBIN NEGATIVE (NEGATIVE); COLOR YELLOW (YELLOW); GLUCOSE NEGATIVE (NEGATIVE); KETONE NEGATIVE (NEGATIVE); NITRITE NEGATIVE (NEGATIVE); PROTEIN 2+ mg/dL (NEGATIVE); UROBILINOGEN NORMAL (NORMAL)
[2018-04-12 15:08] LABS: EPITHELIAL CELLS 0-5 /hpf (0-5); RED CELLS - URINE 0-5 /hpf (0-5); WHITE CELLS - URINE 0-5 /hpf (0-5)
[2018-04-12 15:09] LABS: BACTERIA FEW /hpf (NONE SEEN)
[2018-04-12 16:00] VITALS: BP 138/66
--- NOTE | 2018-04-12 16:00 | NUR ---
DISTILLERY WORKER GENERAL COMPLETE. PT LYING IN BED AAO X4 TO PERSON, PLACE, TIME AND SITUATION. SEE ASSESSMENT FLOWSHEET FOR FURTHER DETAILS. S1 AND S2 HEARD AT AORTIC, PULMONIC, ERBS, TRICUSPID, AND MITRAL SITES. BILAT RADIAL AND PEDAL PULSES PALP AND STRONG. LUNG SOUNDS EXPIRATORY WHEEZING IN RUL, RML, AND JEANCARLOS. DIMINISHED IN LLL AND RLL. SATS WITHIN NORMAL RANGE ON RA. ANGIOEDEMA NOTED TO FACE AND NECK. SWALLOWING OKAY. DENIES FURTHER NEEDS AT THIS TIME. CL IN REACH
[2018-04-12 17:35] VITALS: BMI 30.6
[2018-04-12 20:00] VITALS: BP 158/77
--- NOTE | 2018-04-12 20:00 | NUR ---
PATIENT RESTING IN BED WITH EYES CLOSED AND NO S/S OF DISTRESS. BED IN LOWEST POSITION AND CALL LIGHT WITHIN REACH. WILL CONTINUE TO MONITOR.
[2018-04-13 04:53] LABS: BASOPHILS 0.2 % (0-2); EOSINOPHILS 0 % (0-7); HEMATOCRIT 38.9 % (42.0-54.0); HEMOGLOBIN 12.4 g/dL (13.5-17.5); IMMATURE GRANULOCYTES 0.2 % (0-5); LYMPHOCYTES 12.8 % (15-50); MCH 28.6 pg (26.0-34.0); MCHC 31.9 g/dL (31.0-37.0); MCV 89.8 fL (80.0-100.0); MEAN PLATELET VOLUME 10.8 fL (7.4-10.4); MONOCYTES 1.5 % (2-11); NEUTROPHILS 85.3 % (40-80); PLATELET COUNT 216 10x3/uL (130-400); RBC 4.33 10x6/uL (4.20-6.10); RDW 16.1 % (11.5-14.5); WBC 6.1 10x3/uL (4.8-10.8)
[2018-04-13 05:29] LABS: ALBUMIN 1.5 g/dL (3.4-5.0); ALKALINE PHOSPHATASE 98 U/L (46-116); ALT (SGPT) 24 U/L (10-68); BILIRUBIN - TOTAL 0.21 mg/dL (0.2-1.3); CALCIUM 7.8 mg/dL (8.5-10.1); CARBON DIOXIDE 23.2 mmol/L (21.0-32.0); CHLORIDE - SERUM 110 mmol/L (98-107); CREATININE - SERUM 0.7 mg/dL (0.6-1.3); MAGNESIUM - SERUM 1.8 mg/dL (1.8-2.4); POTASSIUM - SERUM 4.2 mmol/L (3.5-5.1); SODIUM 142 mmol/L (136-145); eGFR NON AFRICAN AMERICAN > 90 mL/min (90-120)
[2018-04-13 05:34] LABS: CALC OSMOLALITY 287 mosm/kg (275-300); GLUCOSE 157 mg/dL (74-106); UREA NITROGEN 17 mg/dL (7-18)
--- NOTE | 2018-04-13 09:24 | NUR ---
PATIENT SITTING UP IN BED. ASKING FOR PAIN MEDS AT THIS TIME. STATED BAND SHOVER ALREADY KNEW. EXPLAINED I WOULD REMIND HER. VERBALIZED UNDERSTANDING. CALL LIGHT WITHIN REACH. NOTIFIED BAND SHOVER THAT PATIENT IS ASKING FOR PAIN MEDS.
[2018-04-13 12:45] VITALS: Ht 182.9 cm; Wt 102.1 kg
[2018-04-13] MEDS ORDERED: NORCO 7.5/325 T1 TA1 PO (15:30)
[2018-04-13] MEDS ORDERED: MIRALAX17 GM PO (15:31)
[2018-04-13] MEDS ORDERED: ZPAK PO (15:39)
[2018-04-13] MEDS ORDERED: ZITHROMAX500 MG PO (15:42)
--- NOTE | 2018-04-13 16:00 | NUR ---
IV REMOVED, TIP INTACT. MINIMAL BLEEDING. STREP SWAB PERFORMED AND TAKEN TO LAB.
--- NOTE | 2018-04-13 16:22 | NUR ---
DISCUSSED DISCHARGE INSTRUCTIONS WITH PATIENT. DISCUSSED MEDICATIONS AND FOLLOW-UP. PATIENT DISCHARGING TO [facility]. ALL BELONGINGS SENT WITH PATIENT. PATIENT DISCHARGED VIA WHEELCHAIR BY [facility] TRANSPORT STAFF.
--- NOTE | 2018-04-13 16:37 | NUR ---
REPORT CALLED TO ANGEL DENG LPN AT THE [facility]. SHE SAID THEY DO NOT USE [facility]. SHE COULD NOT REMEMBER WHICH ONE THEY USE. SHE STATED, "WE'LL TAKE CARE OF IT." NURSE FAMILIAR WITH PATIENT HE CAME FROM THERE. REPORT GIVEN, NO FURTHER QUESTIONS.
== END 2018-04-13 16:20 ==
LOC: D.ER 11:44 → D.MS 15:01 → OBSVTIME 15:01 → D.EDHOLD 15:01 → D.MS 16:00
PROVIDERS: Family Medicine; ADMIT Internal Medicine Nephrology
DX: T78.3XXA Angioneurotic edema, initial encounter (principal); J96.21 Acute and chronic respiratory failure with hypoxia; J44.9 Chronic obstructive pulmonary disease, unspecified; I48.91 Unspecified atrial fibrillation; Z86.718 Personal history of other venous thrombosis and embolism; Z79.01 Long term (current) use of anticoagulants; Z86.73 Personal history of transient ischemic attack (TIA), and cerebral infarction without residual deficits; I12.9 Hypertensive chronic kidney disease with stage 1 through stage 4 chronic kidney disease, or unspecified chronic kidney disease; N18.9 Chronic kidney disease, unspecified; I73.9 Peripheral vascular disease, unspecified; F17.213 Nicotine dependence, cigarettes, with withdrawal; G47.33 Obstructive sleep apnea (adult) (pediatric)

== ENCOUNTER 2018-05-11 18:29 | Observation (INO) | payer MEDICARE ==
[~2018-05-11] VITALS: Ht 182.9 cm; Wt 90.0 kg
[~2018-05-11 18:29] MED LIST changes: +NORCO 7.5/325 T1 TA1 PO; +ZITHROMAX500 MG PO; +ZPAK PO
[2018-05-11 19:01] VITALS: BP 172/91
--- NOTE | 2018-05-11 20:03 | NUR ---
RECEIVED FROM [facility]. DIRECT ADMIT TO DR. JOINER, IV-RAC-SL, PROVIDE PT WITH A SANDWICH AND DRINK, BED IS LOW, SRX2, CALL LIGHT IN REACH, WILL CONTINUE PLAN OF CARE
[2018-05-11 20:14] VITALS: BP 168/88
[2018-05-11 20:19] LABS: APPEARANCE CLEAR (CLEAR); BILIRUBIN NEGATIVE (NEGATIVE); COLOR YELLOW (YELLOW); GLUCOSE NEGATIVE (NEGATIVE); KETONE NEGATIVE (NEGATIVE); NITRITE NEGATIVE (NEGATIVE); PROTEIN 1+ mg/dL (NEGATIVE); SPECIFIC GRAVITY 1.015 (1.005-1.020); UROBILINOGEN NORMAL (NORMAL)
[2018-05-11 20:42] LABS: BASOPHILS 0.5 % (0-2); HEMOGLOBIN 15.2 g/dL (13.5-17.5); IMMATURE GRANULOCYTES 0.3 % (0-5); LYMPHOCYTES 15.2 % (15-50); MCH 29.2 pg (26.0-34.0); MCV 88.5 fL (80.0-100.0); MEAN PLATELET VOLUME 10.4 fL (7.4-10.4); MONOCYTES 14.2 % (2-11); NEUTROPHILS 64.8 % (40-80); PLATELET COUNT 196 10x3/uL (130-400); RDW 15.2 % (11.5-14.5); WBC 10.1 10x3/uL (4.8-10.8)
[2018-05-11 20:58] LABS: ALBUMIN 1.7 g/dL (3.4-5.0); ALKALINE PHOSPHATASE 104 U/L (46-116); ALT (SGPT) 16 U/L (10-68); BILIRUBIN - TOTAL 0.21 mg/dL (0.2-1.3); CALC OSMOLALITY 276 mosm/kg (275-300); CALCIUM 7.9 mg/dL (8.5-10.1); CARBON DIOXIDE 24.5 mmol/L (21.0-32.0); CHLORIDE - SERUM 107 mmol/L (98-107); CREATININE - SERUM 0.7 mg/dL (0.6-1.3); SODIUM 139 mmol/L (136-145); UREA NITROGEN 12 mg/dL (7-18); eGFR NON AFRICAN AMERICAN > 90 mL/min (90-120)
[2018-05-11 21:09] LABS: CKMB 1.3 U/L (0.0-3.6); CREATINE KINASE 68 UL (21-232); MAGNESIUM - SERUM 1.8 mg/dL (1.8-2.4); THYROID STIMULATING HORMONE 4.76 uIU/mL (0.36-3.74); TROPONIN-I 0.054 ng/mL (0.000-0.060)
[2018-05-11 21:10] VITALS: BP 168/88
[2018-05-11 21:12] LABS: GLUCOSE 83 mg/dL (74-106)
[2018-05-11 22:31] VITALS: BP 164/86
--- NOTE | 2018-05-11 23:28 | NUR ---
RECEIVED FROM ER, WAS TOLD BY ER THAT APS HAS BE CALL, PLACED DELILAH ALARM ON BED, PT STATES HE HASNT BEEN TAKING HOME MEDS, HE DOESNT HAVE ANY MEDS AT THIS TIME, BED IS LOW, SRX2, CALL LIGHT IN REACH, WILL CONTINUE PLAN OF CARE
[2018-05-12 01:07] VITALS: BP 143/86
[2018-05-12 05:47] LABS: BASOPHILS 0.3 % (0-2); EOSINOPHILS 5.1 % (0-7); HEMATOCRIT 46.2 % (42.0-54.0); HEMOGLOBIN 15.1 g/dL (13.5-17.5); IMMATURE GRANULOCYTES 0.3 % (0-5); LYMPHOCYTES 15.5 % (15-50); MCH 28.9 pg (26.0-34.0); MCHC 32.7 g/dL (31.0-37.0); MCV 88.5 fL (80.0-100.0); MEAN PLATELET VOLUME 10.9 fL (7.4-10.4); MONOCYTES 14.8 % (2-11); PLATELET COUNT 205 10x3/uL (130-400); RBC 5.22 10x6/uL (4.20-6.10); RDW 15.4 % (11.5-14.5); WBC 10.1 10x3/uL (4.8-10.8)
[2018-05-12 05:55] LABS: CALC OSMOLALITY 276 mosm/kg (275-300); CALCIUM 8.1 mg/dL (8.5-10.1); CARBON DIOXIDE 24.3 mmol/L (21.0-32.0); CHLORIDE - SERUM 105 mmol/L (98-107); CREATININE - SERUM 0.6 mg/dL (0.6-1.3); GLUCOSE 84 mg/dL (74-106); POTASSIUM - SERUM 3.9 mmol/L (3.5-5.1); SODIUM 140 mmol/L (136-145); UREA NITROGEN 9 mg/dL (7-18); eGFR NON AFRICAN AMERICAN > 90 mL/min (90-120)
[2018-05-12 05:57] VITALS: BP 127/70
--- NOTE | 2018-05-12 07:05 | NUR ---
RECEIVED BEDSIDE SHIFT REPORT. ASSUMED CARE OF PATIENT. PATIENT RESTING IN BED ON LEFT LATERAL SIDE. EASILY AROUSED. RESP EVEN AND UNLABORED. NO DISTRESS. DENIES NEEDS AT THIS TIME. NO DISTRESS. CALL LIGHT WITHIN REACH.
--- NOTE | 2018-05-12 08:10 | NUR ---
ASSISTED PATIENT BACK TO BED AT THIS TIME. CONSUMING AM MEAL. NO DISTRESS.
[2018-05-12 08:19] VITALS: BP 167/89
--- NOTE | 2018-05-12 11:40 | NUR ---
MEDICATED FOR GENERALIZED PAIN AT THIS TIME. NO DISTRESS. RESTING IN BED WITH EYES CLOSED AT THIS TIME. EASILY AROUSED. CALL LIGHT WITHIN REACH.
[2018-05-12 12:17] VITALS: BP 136/82
[2018-05-12 12:22] VITALS: BMI 25.7
--- NOTE | 2018-05-12 12:28 | NUR ---
SCD'S APPLIED TO BILATERAL LOWER EXTREMITIES AT THIS TIME. PATIENT COMPLAIN OF BEING HOT, AIR CONDITIONER TURNED ON FOR PATIENT. RESTING ON RIGHT LATERAL SIDE WITH EYES CLOSED. NO DISTRESS. CONSUMED 75% OF NOON MEAL.
[2018-05-12 14:05] VITALS: Ht 182.9 cm; Wt 90.0 kg
--- NOTE | 2018-05-12 14:33 | NUR ---
RESTARTED MEDS ORDERED AT THIS TIME.
--- NOTE | 2018-05-12 16:20 | NUR ---
MEDICATED FOR PAIN AT THIS TIME. NO DISTRESS.
[2018-05-12 16:26] VITALS: BP 144/72
--- NOTE | 2018-05-12 16:27 | MORECARE ---
CASE MANAGEMENT DISCHARGE SUMMARY PATIENT: MAKENZIE DESAI UNIT: [id number] ADM DATE: 05/11/18 AGE: 67 : [birth year] SEX: M ROOM/BED: D.2110 AUTHOR: JEWEL RUSHING PHYSICIAN: REFERRING PHYSICIAN: EVONNE TAPIA MD DATE OF SERVICE: 05/12/18 Discharge Plan Patient Name: MAKENZIE DESAI [facility] [facility] 07/23/1950 Planned Disposition: Anticipated Discharge Date: Discharge Date: Expected LOS: Initial Reviewer: [id number] Initial Review Date: 05/11/2018 Generated: 05/12/18 5:27 pm Coverage Notice Reviewer: [id number] - Gladys Mary Notice Issued Date-Time: 05/12/2018 16:17 Notice Type: Medicare Outpatient Observation Notice Notice Delivered To: Patient Relationship to Patient: Self Chief Fundraising Officer Name: Delivery Method: HAND - Hand Delivered Colette Days: Prior Verbal Notification: Recipient Understood Notice: Yes Recipient Signature: Yes Med Rec Note Co-signed by Attending: Coverage Notice Comment: Patient Name: MAKENZIE DESAI Page 11898 at 1627 All edits/amendments must be made on the electronic document DICTATION DATE: 05/12/181626 COMMERCIAL FRONT LOAD DRIVER: OSMEL 05/12/181626 RPT#: [id number] DC DATE: STATUS: ADM IN [facility] [address] [place] [address] END OF REPORT
--- NOTE | 2018-05-12 18:37 | NUR ---
RESTING IN BED WITH EYES CLOSED. NO DISTRESS. RESP EVEN AND UNLABORED.
--- NOTE | 2018-05-12 19:38 | NUR ---
INITIAL ASSESSMENT COMPLETED - PT A/O X4, STATES PAIN OF 10. ADMINSITERED NORCO 7.5 PER MD ORDER. NO IV ACCESS AT THIS TIME. VSS. RR EVEN AND UL. EDUCATED PT ON FALL PRECAUTIONS, PT REFUSED BED ALARM. OBTAINED BED ALARM WAIVER AND READ TO PT. PT VERBALIZED UNDERSTANDING AND SIGNED WAIVER. NO OTHER NEEDS NOTED AT THIS TIME. CL IN REACH, SR UP X2, BED IN LOWEST POSITION.
[2018-05-12 19:50] LABS: C-REACTIVE PROTEIN 4.6 mg/dL (0.0-0.9)
[2018-05-12 21:14] LABS: ERYTHROCYTE SEDIMENTATION RATE 30 mm/hr (0-20)
--- NOTE | 2018-05-12 22:00 | NUR ---
20G PIV INITIATED IN L CHEST X1 STICK. FLUSHES EASILY AND BLOOD RETURN IS BRISK. NO C/O PAIN OR DISCOMFORT AT SITE. PIV APPROVED TO START IN L CHEST BY STEPHANIE CRYSTAL. PT STATES HIS PAIN IS STILL AT 7/10 AND THAT "THEY USUALLY GIVE ME IV PAIN MEDS BUT I DIDN'T HAVE AN IV." NOTIFIED DR TAPIA OF PT PAIN STATUS, OBTAINED ORDER FOR IV DILAUDID 1MG Q4PRN FOR BREAKTHROUGH PAIN. ADMINISTERED PRESCRIBED ANALGESIC PER MD ORDERS. CL IN REACH, SR UP X2, BED IN LOWEST POSITION. NO OTHER NEEDS NOTED AT THIS TIME.
[2018-05-13] VITALS: BP 115/77; BP 126/75
[2018-05-13 04:00] VITALS: BP 135/72
[2018-05-13 06:08] LABS: BASOPHILS 0.3 % (0-2); EOSINOPHILS 2.4 % (0-7); HEMATOCRIT 44.9 % (42.0-54.0); HEMOGLOBIN 14.8 g/dL (13.5-17.5); IMMATURE GRANULOCYTES 0.6 % (0-5); LYMPHOCYTES 14.1 % (15-50); MEAN PLATELET VOLUME 11.1 fL (7.4-10.4); MONOCYTES 15.9 % (2-11); NEUTROPHILS 66.7 % (40-80); PLATELET COUNT 215 10x3/uL (130-400); RDW 15.6 % (11.5-14.5); WBC 10.7 10x3/uL (4.8-10.8)
[2018-05-13 06:30] LABS: CALCIUM 8.5 mg/dL (8.5-10.1); CARBON DIOXIDE 25.4 mmol/L (21.0-32.0); CHLORIDE - SERUM 105 mmol/L (98-107); GLUCOSE 103 mg/dL (74-106); SODIUM 139 mmol/L (136-145); eGFR NON AFRICAN AMERICAN 90 mL/min (90-120)
[2018-05-13 06:31] LABS: CALC OSMOLALITY 280 mosm/kg (275-300); CREATININE - SERUM 0.9 mg/dL (0.6-1.3); UREA NITROGEN 21 mg/dL (7-18)
--- NOTE | 2018-05-13 07:30 | NUR ---
REPORT RECEIVED FROM CSO. [PATIENT AWAKE, ALERT AND COMPLAINS OF PAIN TO BACK. MEDICATED PER MAR. PATIENT DENEIS ANY OTHER NEEDS. WILL CONTINUE WITH PLAN OF CARE. SR UP X 2 BED IN LOW POSITION AND CALL LIGHT IN REACH.
[2018-05-13 07:59] VITALS: BP 134/77
--- NOTE | 2018-05-13 08:45 | NUR ---
CALLED TO PATIENTS ROOM. PATIENT COMPLAINS OF PAIN OF 10 REQUEST MEDICATION FOR BREAKTHROUGH PAIN. ATTEMPTED TO GIVE DILAUDED PER RT CHEST IV. IV INFILLTRATED. RE-SITED IV TO RT UPPER ARM WITH 20 G CATHETER. PATIENT TOLERATED WELL. MEDICATED PER MAR WITH DILAUDED 1.0 MG. WILL CONTINUE TO MONITOR. SR UP X 2 BED IN LOW POSITION AND CALL LIGHT IN REACH.
--- NOTE | 2018-05-13 10:30 | NUR ---
PATIENT UP TO SHOWER ASSISTANCE WITH SHOWER CHAIR. PATIENT TOLERATED WELL. DENIES ANY NEEDS OR PAIN. WILL CONTINUE TO MONITOR.
--- NOTE | 2018-05-13 11:10 | NUR ---
PATIENT LAYING IN BED ON BACK WITH EYES CLOSED AND BREATHING EVENLY. NO S/S OF DISTRESS NOTED. WILL CONTINUE TO MONITOR.
[2018-05-13 11:25] VITALS: BP 115/58
--- NOTE | 2018-05-13 14:30 | NUR ---
CALLED TO PATIENTS ROOM. PATIENT LAYING IN BED AWAKE AND ALERT. PATIENT COMPLAINS OF A HEADACHE AND BACKACHE AT A 8. PATIENT MEDICATED PER MAR WITH NORCO 5/325 X 2 . WILL CONTINUE TO MONITOR. SR UP X 2 BED IN LOW POSTION AND CALL LIGHT IN REACH.
--- NOTE | 2018-05-13 15:00 | NUR ---
PATIENT LAYING IN BED ON BACK WITH EYES CLOSED AND BREATHING EVENLY. WILL CONTINUE TO MONITOR.
[2018-05-13 15:16] VITALS: BP 122/66
--- NOTE | 2018-05-13 17:07 | MORECARE ---
CASE MANAGEMENT DISCHARGE SUMMARY PATIENT: MAKENZIE DESAI UNIT: [id number] ADM DATE: 05/11/18 AGE: 67 : [birth year] SEX: M ROOM/BED: D.2110 AUTHOR: СЕРГЕЙ,DOC PHYSICIAN: REFERRING PHYSICIAN: EVONNE TAPIA MD DATE OF SERVICE: 05/13/18 Discharge Plan Patient Name: MAKENZIE DESAI Facility: [facility]:[place] : 07/23/1950 Planned Disposition: Nursing Home Facility Anticipated Discharge Date: 05/14/18 Discharge Date: Expected LOS: 3 Initial Reviewer: [id number] Initial Review Date: 05/11/2018 Generated: 05/13/18 6:07 pm DCPIA - Discharge Planning Initial Assessment Updated by [id number]: Broderick Yo on 05/13/18 5:03 pm * Is the patient Alert and Oriented? Yes * How many steps to enter\exit or inside your home? NONE * PCP DR. BARRERA * Pharmacy [facility] OR [facility] * Preadmission Environment Home with Family * ADLs Independent * Equipment Cane * Other Equipment [facility] - MEDICAL EQUIPMENT PROVIDER * List name and contact numbers for known caregivers / representatives who currently or will assist patient after discharge: RILEY DIETZ, FRIEND, * Verbal permission to speak to the caregivers and representatives has been obtained from the patient. N/A * Community resources currently utilized None * Please name any agencies selected above. NONE * Additional services required to return to the preadmission environment? Yes * Can the patient safely return to the preadmission environment? Yes * Has this patient been hospitalized within the prior 30 days at any hospital? No External Providers External Provider: [facility] Next Contact Date: 05/14/2018 Service Request Date: Service Type: Resolution: Reviewer: Comments: Coverage Notice Reviewer: [id number] Christian Mary Notice Issued Date-Time: 05/12/2018 16:17 Notice Type: Medicare Outpatient Observation Notice Notice Delivered To: Patient Relationship to Patient: Self Deputy District Customs Director Name: Delivery Method: HAND - Hand Delivered Colette Days: Prior Verbal Notification: Recipient Understood Notice: Yes Recipient Signature: Yes Med Rec Note Co-signed by Attending: Coverage Notice Comment: Last DP export: 2/26/19 3:27 p Patient Name: MAKENZIE DESAI Page 78034 at 1707 All edits/amendments must be made on the electronic document DICTATION DATE: 05/13/181705 FLIGHT TEST SUPERVISOR: OSMEL 05/13/181705 RPT#: [id number] DC DATE: STATUS: ADM IN [facility] [address] [place] [address] END OF REPORT
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
--- NOTE | 2018-05-13 17:45 | NUR ---
PATIENT SITTING ON SIDE OF BED EATING SUPPER. MEDS GIVEN PER MAR. PATIENT DENIES ANY NEEDS OR PAIN. WILL CONTINUE TO MONITOR. BED IN LOW POSITION AND CALL LIGHT IN REACH.
--- NOTE | 2018-05-13 19:30 | NUR ---
TO PT ROOM VIA CALL LIGHT - PT C/O PAIN AND WANTS HIS "DILAUDID SHOT." GIVEN PER MD ORDER. R UA PIV PATENT, C/D/I. INITIAL ASSESSMENT COMPLETED AT THIS TIME. RR EVEN AND UL ON RA. PT REFUSES TELEMETRY. NO OTHER NEEDS NOTED AT THIS TIME. PM MEDS GIVEN. CL IN REACH, SR UP X2, BED IN LOWEST POSITION.
[2018-05-13 20:30] VITALS: BP 110/71
--- NOTE | 2018-05-13 23:20 | NUR ---
TO PT ROOM VIA CALL LIGHT - PT RESTING IN BED WITH EYES CLOSED UPON WALKING INTO ROOM. AROUSES ONLY TO LOUD NOISES. STATES PAIN 7/10. BEGINS GROANING UPON WALKING INTO ROOM. PT DEMONSTRATING DEMANDING BEHAVIOR. ADMINISTERED NORCO PER MD ORDERS. NO OTHER NEEDS AT THIS TIME. CL IN REACH, SR UP X2, BED IN LOWEST POSITION.
[2018-05-14 00:30] VITALS: BP 105/73
[2018-05-14 05:29] VITALS: BP 123/95
[2018-05-14 06:09] LABS: BASOPHILS 0.3 % (0-2); EOSINOPHILS 3.1 % (0-7); HEMATOCRIT 43.1 % (42.0-54.0); HEMOGLOBIN 14.1 g/dL (13.5-17.5); IMMATURE GRANULOCYTES 0.5 % (0-5); LYMPHOCYTES 14.7 % (15-50); MCH 28.9 pg (26.0-34.0); MCHC 32.7 g/dL (31.0-37.0); MCV 88.3 fL (80.0-100.0); MEAN PLATELET VOLUME 11.1 fL (7.4-10.4); MONOCYTES 12.5 % (2-11); NEUTROPHILS 68.9 % (40-80); PLATELET COUNT 232 10x3/uL (130-400); RBC 4.88 10x6/uL (4.20-6.10); RDW 15.9 % (11.5-14.5); WBC 10.5 10x3/uL (4.8-10.8)
[2018-05-14 06:26] LABS: CALC OSMOLALITY 284 mosm/kg (275-300); CALCIUM 8.3 mg/dL (8.5-10.1); CARBON DIOXIDE 24.5 mmol/L (21.0-32.0); CHLORIDE - SERUM 105 mmol/L (98-107); GLUCOSE 114 mg/dL (74-106); SODIUM 139 mmol/L (136-145); eGFR NON AFRICAN AMERICAN 79 mL/min (90-120)
[2018-05-14 06:27] LABS: UREA NITROGEN 28 mg/dL (7-18)
--- NOTE | 2018-05-14 07:41 | NUR ---
ROUNDING DONE WITH PATIENT JUST RECEIVED IV DIALUDID LAST SHIFT TO RIGHT UPPER ARM PIV OF 1/2 NS INFUSING AT 10 CC/HR. ON HEART MONITOR SHOWING SR, HR 87. ON ROOM AIR. ON EP, K+ IS 4.0. PATIENT IS INSTRUCTED TO ALTERNATE ORAL AND IV PAIN MEDS. THIS IS RE-ENFORCED PER YANNA PERKINS APN IN ROOM AT THIS TIME. PATIENT STATES TO UNDERSTANDING. IN REPORT, PATIENT REFUSES ALL FALL PRECAUTIONS AND DOES SO AT THIS TIME AGAIN.
[2018-05-14 07:53] VITALS: BP 128/65
--- NOTE | 2018-05-14 11:31 | NUR ---
I AWOKE PATIENT FROM A DEEP SLEEP TO GIVE HIM HIS FLORAGEN AND HE COMPLAINS OF PAIN 6/10 TO BACK AND LEGS. NORCO GIVEN.
[2018-05-14 12:23] VITALS: BP 147/55
--- NOTE | 2018-05-14 12:57 | NUR ---
IV DRESSING REMOVED PATIENT WANTS IT RE-DONE. IV CATH TIP IS OUT OF THE ARM. I SEE NOTHING TO RE-SITE. SILVIO LEVINE RN VASCUALR ACCESS NURSE CALLED TO RE-SITE. I TOLD HER THAT HE IS ON BLOOD THINNERS.
--- NOTE | 2018-05-14 13:07 | NUR ---
20 G SITED TO LEFT UPPER CHEST PER SILVIO LEVINE,
--- NOTE | 2018-05-14 14:29 | NUR ---
RESTING WITH EYES CLOSED, RESP ARE EVEN, SNORING.
[2018-05-14 14:47] VITALS: BP 119/60
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
--- NOTE | 2018-05-14 17:39 | NUR ---
SITTING ON SIDE OF BED EATING SUPPER. WANTS LIGHTS TURNED OFF, DONE. DENIES ANY FURTHER NEEDS.
--- NOTE | 2018-05-14 18:40 | NUR ---
ANDRES OROURKE STATES THAT PATIENT ASKED HER FOR SOMETHING FOR PAIN HE WAS JUST ON THE LIGHT. I PULLED THE NORCO AND WALKED INTO THE ROOM WITH SHARAD PRESENT AND THE PATIENT IS SNORING. I PUT THE NORCO BACK.
[2018-05-14 20:00] VITALS: BP 119/55
--- NOTE | 2018-05-14 20:00 | NUR ---
INITIAL ASSESSMENT COMPLETED - PT RESTING IN BED WITH EYES CLOSED. RR EVEN AND UL, NO S/S OF DISTRESS. VSS. PIV PATENT IN L UA, C/D/I. PT AROUSES SLOWLY TO LOUD NOISE. DENIES ANY NEEDS AT THIS TIME EXCEPT FOR PAIN MEDS. STATES PAIN 8/10. ADMINISTERED PRESCRIBED ANALGESIC PER MD ORDERS. WCTM AND FOLLOW POC. CL IN REACH, SR UP X2, BED IN LOWEST POSITION. REFUSES FALL PRECAUTIONS.
[2018-05-15] VITALS: BP 122/54
--- NOTE | 2018-05-15 02:30 | NUR ---
PT RESTING IN BED QUIETLY AFTER GIVING NORCO. RR EVEN AND UL, NO S/S OF DISTRESS. NO NEEDS NOTED AT THIS TIME. CL IN REACH, SR UP X2, BED IN LOWEST POSITION. REFUSED TELEMETRY AND FALL PRECAUTIONS.
[2018-05-15 04:50] VITALS: BP 114/61
[2018-05-15 05:56] LABS: BASOPHILS 0.4 % (0-2); EOSINOPHILS 4.1 % (0-7); HEMATOCRIT 39.6 % (42.0-54.0); HEMOGLOBIN 12.8 g/dL (13.5-17.5); IMMATURE GRANULOCYTES 0.4 % (0-5); LYMPHOCYTES 16.1 % (15-50); MCH 28.6 pg (26.0-34.0); MCHC 32.3 g/dL (31.0-37.0); MCV 88.6 fL (80.0-100.0); MEAN PLATELET VOLUME 10.2 fL (7.4-10.4); MONOCYTES 14.9 % (2-11); NEUTROPHILS 64.1 % (40-80); PLATELET COUNT 221 10x3/uL (130-400); RBC 4.47 10x6/uL (4.20-6.10); WBC 9.7 10x3/uL (4.8-10.8)
[2018-05-15 05:57] LABS: ANION GAP 12.6 mmol/L (8-16); CALCIUM 8.6 mg/dL (8.5-10.1); POTASSIUM - SERUM 4.6 mmol/L (3.5-5.1)
[2018-05-15 06:01] LABS: CREATININE - SERUM 1.3 mg/dL (0.6-1.3)
--- NOTE | 2018-05-15 07:19 | NUR ---
ROUNDING DONE WITH NORCO ALREADY GIVEN LAST SHIFT. PATIENT IS SLEEPING, SNORING. ON ROOM AIR. LEFT CHEST PIV SEEN SALINE LOCK. ON EP, K+ 4.6.
[2018-05-15 08:14] VITALS: BP 134/60
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
--- NOTE | 2018-05-15 09:56 | NUR ---
PATIENT IS WANTING TO GET INTO A WHEELCHAIR AND GO TO THE [facility]. I TOLD HIM THAT HE CAN NOT GO OFF THE FLOOR IN A WHEELCHAIR BY HIMSELF WITH PAIN MEDICATIONS. I ASKED ANDRES OROURKE TO TAKE HIM TO [facility] AND THEN BACK TO ROOM.
--- NOTE | 2018-05-15 12:03 | NUR ---
PATIENT TO REFUSE AFTERNOON VITAL SIGNS.
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
--- NOTE | 2018-05-15 14:49 | NUR ---
1437-REPORT CALLED TO ESTEBAN FLETCHER AT [facility]. AWAITING VAN FOR TRANSPORT TO THEM. 1449-LEFT CHEST SALINE LOCK REMOVED WITH CATH TIP INTACT. PATIENT IS ON XARELTO AND IS BLEEDING FREELY. PRESSURE HELD.
--- NOTE | 2018-05-15 15:40 | NUR ---
VERBAL AND WRITTEN DISCHARGE INSTRUCTIONS GIVEN TO PATIENT. NO FURTHER BLEEDING SEEN TO LEFT UPPER CHEST AREA. DISCHARGED VIA WHEELCHAIR TO [facility].
== END 2018-05-15 15:47 ==
LOC: D.ER 18:29 → D.M2 22:32 → OBSVTIME 22:32 → D.M2 05-15 15:47
PROVIDERS: Family Medicine; ADMIT Internal Medicine Nephrology; ATTEND Internal Medicine Nephrology
DX: R53.1 Weakness (principal); R53.81 Other malaise; I48.91 Unspecified atrial fibrillation; I82.5Z2 Chronic embolism and thrombosis of unspecified deep veins of left distal lower extremity; Z79.01 Long term (current) use of anticoagulants; Z86.73 Personal history of transient ischemic attack (TIA), and cerebral infarction without residual deficits; K21.9 Gastro-esophageal reflux disease without esophagitis; I12.9 Hypertensive chronic kidney disease with stage 1 through stage 4 chronic kidney disease, or unspecified chronic kidney disease; N18.9 Chronic kidney disease, unspecified; J44.9 Chronic obstructive pulmonary disease, unspecified; F17.213 Nicotine dependence, cigarettes, with withdrawal; E43 Unspecified severe protein-calorie malnutrition; Z68.25 Body mass index [BMI] 25.0-25.9, adult; G47.33 Obstructive sleep apnea (adult) (pediatric)

== ENCOUNTER 2019-03-07 11:12 | Inpatient (IN) | payer MEDICARE ==
[~2019-03-07] VITALS: Ht 182.9 cm; Wt 113.2 kg
--- NOTE | ~2019-03-07 | EC ---
PATIENT:MAKENZIE DESAI DATE OF SERVICE: 03/07/19 SEX: M MEDICAL RECORD: [id number] DATE OF : [birth year] LOCATION:D.M2 D.210 AGE OF PATIENT: 68 ADMISSION DATE: 03/07/19 REFERRING PHYSICIAN: INTERPRETING PHYSICIAN: YI TILLMAN MD ECHOCARDIOGRAM REPORT ECHO CHARGES 4 ECHO COMPLETE Date: 03/08/19 CLINICAL DIAGNOSIS: DYSPNEA ON EXERTION, EDEMA ECHOCARDIOGRAPHIC MEASUREMENTS (adult normal given) AC root (d.<3.7cm) 4.0 cm LV Septum d (<1.2 cm> 1.4 cm Valve Excursion 1.8 cm LV Septum (systole) 1.7 cm Left Atria (s.<4.0cm> 3.9 cm LVPW d(<1.2cm) 1. cm RV (d.<2.3cm) 4.3 cm LVPW (sytole) 1.8 cm LV diastole(<5.6CM) 4.9 cm MV E-F(>70mm/sec) cm LV systole 3.9 cm LVOT Diameter 2.3 cm MV exc.(>10mm) cm Est.ejection fraction (50-75%) % DOPPLER: LVIT cm/sec A 80.0 cm/sec E 65.0 cm/sec LA cm/sec RVSP 30 mmHg LVOT 100 cm/sec AOP1/2T m/s Asc. Ao 121 cm/sec RVOT cm/sec RA cm/sec PA cm/sec AV Gradient Peak 5.90 mmHg AV Mean 3.46 mmHg AV Area 3.6 cm MV Gradient Peak 2.64 mmHg MV Mean 1.18 mmHg MV Area cm COMMENTS: Stripper Preliminary: Juan Jose PRIDE Voice Data Communications Engineer: 1 Dr. Tillman TAPE# PACS Pericardial Effusion N DATE OF SERVICE: 03/08/2019 FINDINGS: 1. Left ventricular chamber size is within normal limits. Left ventricular systolic function is normal. Overall ejection fraction estimated at 60%. 2. Left atrium is within normal limits. Right atrium and right ventricle chamber sizes are mildly dilated. 3. Valvular structures have normal structure and motion. 4. Doppler interrogation reveals mild tricuspid regurgitation. No other valvular insufficiency or stenosis. Pulmonary systolic pressure is estimated at ECHOCARDIOGRAM REPORT [id number] MAKENZIE DESAI 30 mmHg. 5. No evidence of pericardial effusion or left ventricular thrombus. TRANSINT:[id number] Voice Confirmation ID: [id number] DOCUMENT ID: [id number] YI TILLMAN MD CC: [id number] DICTATION DATE: 03/08/19 1256 SHREDDER OPERATOR: 03/08/191953 ADM IN [facility] [address] [id number]
--- NOTE | 2019-03-07 11:16 | NUR ---
PT HAS IVC FILTER SINCE 1999
[2019-03-07 11:57] LABS: BASOPHILS 0.2 % (0-2); HEMATOCRIT 41.6 % (42.0-54.0); HEMOGLOBIN 13.1 g/dL (13.5-17.5); IMMATURE GRANULOCYTES 0.5 % (0-5); LYMPHOCYTES 7.9 % (15-50); MCH 25.5 pg (26.0-34.0); MCHC 31.5 g/dL (31.0-37.0); MCV 80.9 fL (80.0-100.0); MEAN PLATELET VOLUME 8.8 fL (7.4-10.4); MONOCYTES 14.9 % (2-11); NEUTROPHILS 75.5 % (40-80); RBC 5.14 10x6/uL (4.20-6.10); RDW 17.8 % (11.5-14.5); WBC 8.8 10x3/uL (4.8-10.8)
[2019-03-07 12:06] LABS: PLATELET COUNT 353 10x3/uL (130-400)
[2019-03-07 12:11] LABS: CALC OSMOLALITY 281 mosm/kg (275-300); CALCIUM 8.1 mg/dL (8.5-10.1); CHLORIDE - SERUM 105 mmol/L (98-107); CREATININE - SERUM 0.9 mg/dL (0.6-1.3); GLUCOSE 105 mg/dL (74-106); POTASSIUM - SERUM 4.3 mmol/L (3.5-5.1); SODIUM 139 mmol/L (136-145); UREA NITROGEN 23 mg/dL (7-18); eGFR NON AFRICAN AMERICAN 89 mL/min (90-120)
[2019-03-07 12:18] LABS: APTT 31.1 SECONDS (22.8-39.4); INR 1.42 (0.85-1.17); PROTIME 16.8 SECONDS (11.6-15.0)
[2019-03-07 12:27] LABS: ALBUMIN 1.3 g/dL (3.4-5.0); ALKALINE PHOSPHATASE 152 U/L (46-116); ALT (SGPT) 17 U/L (10-68); BILIRUBIN - TOTAL 0.36 mg/dL (0.2-1.3); CREATINE KINASE 143 UL (21-232); MAGNESIUM - SERUM 1.8 mg/dL (1.8-2.4); PRO BNP 9207 pg/mL (0-125); PROTEIN - SERUM 6.3 g/dL (6.4-8.2)
[2019-03-07 14:51] LABS: APPEARANCE CLEAR (CLEAR); COLOR YELLOW (YELLOW); SPECIFIC GRAVITY 1.015 (1.005-1.020)
[2019-03-07 14:52] LABS: BILIRUBIN NEGATIVE (NEGATIVE); GLUCOSE NEGATIVE (NEGATIVE); KETONE NEGATIVE (NEGATIVE); NITRITE NEGATIVE (NEGATIVE); PROTEIN 3+ mg/dL (NEGATIVE)
[2019-03-07 14:55] LABS: AMORPHOUS SEDIMENT <1+ /lpf (NONE SEEN); BACTERIA FEW /hpf (NEGATIVE); EPITHELIAL CELLS NSEEN /hpf (0-5); HYALINE CAST 0-5 /lpf (NONE SEEN); RED CELLS - URINE 0-5 /hpf (0-5); WHITE CELLS - URINE 0-5 /hpf (NEGATIVE)
--- NOTE | 2019-03-07 15:24 | NUR ---
PT ARRIVED VIA STRETCHER, TOOK 4 PPL TRANSFER. PT IS ALERT AND ORIENTEDX4 BUT CURRETNLY BEDFAST.
[2019-03-07] MEDS ORDERED: ELIQUIS5 MG PO (15:27)
[2019-03-07] MEDS ORDERED: BUPRENORPHINE HC8 MG SL (15:29)
[2019-03-07 17:00] VITALS: BP 128/74; BMI 34.0
--- NOTE | 2019-03-07 17:41 | NUR ---
RN OBEY WAS ATTMEPTING TO DO RN ASSESMENT. PT WAS EXTREMELY AGITATED AND RUDE TO HER. TOLD HER "YOURE ANNOYING, COME BACK LATER" AND REFUSED TO ANSWER BASIC QUESTIONS. OFFERED PT [address] TAPIA SAID HE COULD HAVE, PT REFUSED STATING IT WOULDNT WORK. CL IN REACH,S RX2. SUPPER TRAY PROVIDED.
--- NOTE | 2019-03-07 18:23 | NUR ---
PTS HR JUMPED UP TO THE LOW 200'S. WHEN I CHECKED ON PT HE WAS ASYMPTAMATIC AND STATED THAT HE TENDS TO DO THIS. CALLED DR TAPIA AND HE STATED TO START A CARDIZEM DRIP @5. WAITIN MILAGRO PRODUCE DEPARTMENT MANAGER TO PULL DRIP. CONSULTED CARDIOLOGY PER DR. ZHAO. PT THEN DROPPED BACK DOWN TO THE LOW 90S- LOW 100S RANGE. PAGED DR. MO FOR FURTHER INSTRUCTION. CL IN REACH, SRX2.
--- NOTE | 2019-03-07 18:44 | NUR ---
SPOKE TO DR. MO, HE STATED SINCE PTS HEART RATE WASB ACK DOWN TO HOLD CARDIZEM DRIP AT THIS TIME, GIVE BETAPACE 80MG BID AND ORDER ECHO STAT. PT IS STILL ASYMPTOMATIC. CL INR EACH, SRX2.
[2019-03-07 20:00] VITALS: BP 129/79
--- NOTE | 2019-03-07 20:14 | NUR ---
REFUSING SOTOLOL. WENT IN TO EDUCATE ON NEED AND STATED " IT DON'T WORK". CALLED DR. MO WITH NEW ORDER FOR CARDIZEM 20 MG BOLUS X1 AND START CARDIZEM 80MG QDAY. THEN C/O NEEDING HIS SYMBOXIN 24 MG. CALLED JACEY ALEJANDRE WITH NEW ORDER FOR SYMBOXIN 24 MG. WHEN INFORMING PT OF NEW ORDER HE STATED "I TAKE IT DIFFERENT WAYS". EXPLAINED I NEEDED TO KNOW WHAT THE DOCTOR HAD ORDERS. STATED " IT DON'T WORK ANYWAY AND I'M NOT GOING TO STAY HERE AND ARGUE WITH PEOPLE". EXPLAINED THE ORDER HAD TO BE SPECIFIC IN ORDER FOR ME TO PUT THE MEDICATION IN. STATED "FORGET IT I'M LEAVING".
--- NOTE | 2019-03-07 21:16 | NUR ---
DR MO AND LAURA MARI NOTIFIED OF PTS DEMAND TO GO AMA. WHEN AMA FORM WAS PRESENTED, PT REFUSED TO SIGN AND STATED "I HAVE NO WHERE TO GO AND NO ONE TO TAKE CARE OF ME ANYWAY"
[2019-03-08 00:30] VITALS: BP 123/69
--- NOTE | 2019-03-08 02:52 | NUR ---
PT IS BEING MORE COOPERITIVE WITH CARE. HR CONTINUES TO GO BETWEEN 82 AND 200. NO S/SX OF DISTRESS. CALL LIGHT IN REACH. WILL CTM.
[2019-03-08 04:03] VITALS: BP 114/71
[2019-03-08 06:13] LABS: BASOPHILS 0.2 % (0-2); EOSINOPHILS 2.4 % (0-7); HEMATOCRIT 43.4 % (42.0-54.0); HEMOGLOBIN 13.6 g/dL (13.5-17.5); IMMATURE GRANULOCYTES 1.3 % (0-5); LYMPHOCYTES 14.6 % (15-50); MCH 25.2 pg (26.0-34.0); MCHC 31.3 g/dL (31.0-37.0); MCV 80.4 fL (80.0-100.0); MEAN PLATELET VOLUME 9.3 fL (7.4-10.4); MONOCYTES 13.9 % (2-11); NEUTROPHILS 67.6 % (40-80); PLATELET COUNT 379 10x3/uL (130-400); WBC 8.4 10x3/uL (4.8-10.8)
[2019-03-08 06:37] LABS: CALC OSMOLALITY 280 mosm/kg (275-300); CALCIUM 8.2 mg/dL (8.5-10.1); CARBON DIOXIDE 24.5 mmol/L (21.0-32.0); CHLORIDE - SERUM 105 mmol/L (98-107); CREATININE - SERUM 0.9 mg/dL (0.6-1.3); GLUCOSE 110 mg/dL (74-106); MAGNESIUM - SERUM 1.9 mg/dL (1.8-2.4); PHOSPHOROUS 4.5 mg/dL (2.5-4.9); POTASSIUM - SERUM 4.7 mmol/L (3.5-5.1); SODIUM 138 mmol/L (136-145); UREA NITROGEN 25 mg/dL (7-18); eGFR NON AFRICAN AMERICAN 89 mL/min (90-120)
--- NOTE | 2019-03-08 07:08 | NUR ---
PT RESTING PEACEFULLY WHEN I ENTERED. BREATHS EVEN, REGULAR, AND UNLABORED. NO SIGNS OR SYMPTOMS OF ACUTE DISTRESS NOTED AT THIS TIME. DID NOT WAKE I ENTERED, DID NOT FURTHER DISTURB AT THIS TIME. CL IN REACH, SRX2. NO FAMILY AT BEDSIDE.
[2019-03-08 08:40] VITALS: BP 115/85
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
--- NOTE | 2019-03-08 10:39 | NUR ---
I CONCUR WITH THE BURLAP BAG SEWER ASSESSMENT OF THIS PATIENT.
[2019-03-08 12:19] VITALS: BMI 33.9
[2019-03-08 13:01] VITALS: BP 125/79
[2019-03-08 13:49] VITALS: Ht 182.9 cm; Wt 113.2 kg
[2019-03-08 17:27] VITALS: BP 121/81
--- NOTE | 2019-03-08 19:00 | NUR ---
REPORT RECEIVED, WILL CONTINUE POC. PATIENT IS AAOX4, BEDFAST. NO S/S OF DISTRESS OBSERVED, RR EVEN AND UNLABORED ON 2L O2 VIA NC. PATIENT DENIES NEEDS AT THIS TIME. F/C PATENT, DRAINING CONCENTRATED URINE BY GRAVITY TO RT SIDE OF BED. CL IN REACH, BED LOCKED AND LOWERED. WILL CTM.
[2019-03-08 20:00] VITALS: BP 113/77
[2019-03-09 00:09] VITALS: BP 116/81
--- NOTE | 2019-03-09 02:08 | NUR ---
I have reviewed this patient and I concur with the Shift Assessment completed by the Licensed Practical Nurse today this shift.
--- NOTE | 2019-03-09 02:30 | NUR ---
PATIENT RECEIVING BED BATH FROM [employer]. HE WAS CRYING OUT, SAID HIS "COCCYX HURTS" PATIENT HAS A REDDENED AREA TO RT BUTTOCK, BLANCHABLE. PATIENT ALSO HAS REDDENED AREA TO COCCYX, BLANCHABLE. APPLIED BUTTPASTE TO BOTH AREAS WELL HAS HIS SWOLLEN SCROTUM. OFFERED PATIENT ULTRAM AND HE SAID HE CAN'T TAKE IT BECAUSE HE IS ALLERGIC. OFFERED PATIENT TYLENOL, HE AGREED. PRN TYLENOLY ADMINISTERED PER ORDERS.
[2019-03-09 04:00] VITALS: BP 109/57
[2019-03-09 05:13] LABS: BASOPHILS 0.1 % (0-2); EOSINOPHILS 2.2 % (0-7); HEMATOCRIT 42.3 % (42.0-54.0); HEMOGLOBIN 12.9 g/dL (13.5-17.5); IMMATURE GRANULOCYTES 0.8 % (0-5); LYMPHOCYTES 6.5 % (15-50); MCH 25.1 pg (26.0-34.0); MCHC 30.5 g/dL (31.0-37.0); MCV 82.3 fL (80.0-100.0); MONOCYTES 12.6 % (2-11); NEUTROPHILS 77.8 % (40-80); PLATELET COUNT 365 10x3/uL (130-400); RBC 5.14 10x6/uL (4.20-6.10); WBC 10.5 10x3/uL (4.8-10.8)
[2019-03-09 05:58] LABS: ALBUMIN 1.2 g/dL (3.4-5.0); ALKALINE PHOSPHATASE 163 U/L (46-116); ALT (SGPT) 15 U/L (10-68); BILIRUBIN - TOTAL 0.31 mg/dL (0.2-1.3); CALC OSMOLALITY 280 mosm/kg (275-300); CALCIUM 7.9 mg/dL (8.5-10.1); CARBON DIOXIDE 29.9 mmol/L (21.0-32.0); CHLORIDE - SERUM 103 mmol/L (98-107); GLUCOSE 112 mg/dL (74-106); POTASSIUM - SERUM 4.1 mmol/L (3.5-5.1); PROTEIN - SERUM 5.9 g/dL (6.4-8.2); SODIUM 138 mmol/L (136-145); UREA NITROGEN 23 mg/dL (7-18); eGFR NON AFRICAN AMERICAN 79 mL/min (90-120)
--- NOTE | 2019-03-09 07:25 | NUR ---
RECEIVED REPORT. ASSUMED CARE OF PATIENT. RESTING WITH EYES CLOSED. RESP EVEN AND UNLABORED. NO DISTRESS. CALL LIGHT WITHIN REACH.
--- NOTE | 2019-03-09 08:38 | NUR ---
PHYSICAL THERAPIST ARABELLA CAME TO THIS OUTER DIAMETER TECHNICIAN TO NOTIFY NURSING THAT PATIENT HAS REFUSED ANY ATTEMPT AT THERAPY X 2 NOW. YESTERDAY HE REFUSED BECAUSE HE WAS IN PAIN, TODAY HE REFUSED BECAUSE HE IS TIRED AND ITS GOLDEN AND HE DOENS'T WANT TO. ARABELLA STATES SHE EVEN OFFERED TO START WITH ROM TO KEEP THE PATIENT FROM FEELING STIFF JUST TO INIATE PHYSICAL THERAPY AND PATIENT REFUSED. ARABELLA STATES SHE WILL TRY ONE MORE TIME TOMORROW AND IF THE PATIENT REFUSES TOMORROW, PATIENT WILL BE DISMISSED FROM PT EVALUATION.
[2019-03-09 09:19] VITALS: BP 126/57
--- NOTE | 2019-03-09 10:05 | NUR ---
PATIENT WAS PLACED IN CONTACT ISOLATION FOR MRSA IN WOUNDS PER STAFF. THIS FILLING STATION LABORER CAN NOT SEE THAT PATIENT HAS HAD ANY CURRENT WOUND CULTURES TAKEN BUT IS IN ISOLATION.
[2019-03-09 12:13] VITALS: BP 106/70
--- NOTE | 2019-03-09 13:28 | NUR ---
PATIENT COMPLAINING OF PAIN AND HAS TRAMADOL ORDERED, WENT TO ADMINISTER THE TRAMADOL AND AFTER POPPING INTO THE MEDICATION CUP, STATES HE CAN NOT TAKE IT AND WANTS SOMETHING DIFFERENT. MEDICATION WILL BE WASTED.
--- NOTE | 2019-03-09 14:58 | NUR ---
MEDICATED FOR PAIN WITH TYLENOL AT THIS TIME.
--- NOTE | 2019-03-09 16:38 | MORECARE ---
CASE MANAGEMENT DISCHARGE SUMMARY PATIENT: MAKENZIE DESAI S UNIT: [id number] ADM DATE: 03/07/19 AGE: 68 : [birth year] SEX: M ROOM/BED: D.2102 AUTHOR: JEWEL RUSHING PHYSICIAN: REFERRING PHYSICIAN: EVONNE TAPIA MD DATE OF SERVICE: 03/09/19 Discharge Plan Patient Name: MAKENZIE DESAI [facility] [facility] 07/23/1950 Planned Disposition: Half-Way Facility Anticipated Discharge Date: Discharge Date: Expected LOS: Initial Reviewer: [email or web address] Initial Review Date: 03/09/2019 Generated: 03/09/19 5:38 pm DCPIA - Discharge Planning Initial Assessment Updated by [email or web address]: Broderick Yo on 03/09/19 4:34 pm * Is the patient Alert and Oriented? Yes * How many steps to enter\exit or inside your home? NONE * PCP DR. BARRERA * [facility]acy [facility] [place] OR [facility], IN [place] * Preadmission Environment Home with Family * ADLs Independent * Equipment Cane Power Chair or Electric Scooter * Other Equipment [facility] IS PROVIDER OF EQUIPMENT * List name and contact numbers for known caregivers / representatives who currently or will assist patient after discharge: LILIAM DESAI, EX , * Verbal permission to speak to the caregivers and representatives has been obtained from the patient. N/A * Community resources currently utilized None * Please name any agencies selected above. NONE * Additional services required to return to the preadmission environment? Yes * Can the patient safely return to the preadmission environment? Yes * Has this patient been hospitalized within the prior 30 days at any hospital? No Patient Name: MAKENZIE DESAI Page 36454 at 1638 All edits/amendments must be made on the electronic document DICTATION DATE: 03/09/191637 DIRECTOR OF MEDICARE: OSMEL 03/09/191637 RPT#: [id number] DC DATE: STATUS: ADM IN [facility] [address] [place] [address] END OF REPORT
--- NOTE | 2019-03-09 16:46 | MORECARE ---
CASE MANAGEMENT DISCHARGE SUMMARY PATIENT: MAKENZIE DESAI UNIT: [id number] ADM DATE: 03/07/19 AGE: 68 : [birth year] SEX: M ROOM/BED: D.2102 AUTHOR: JEWEL RUSHING PHYSICIAN: REFERRING PHYSICIAN: EVONNE TAPIA MD DATE OF SERVICE: 03/09/19 Discharge Plan Patient Name: MAKENZIE DESAI Facility: [facility]:[place] : 07/23/1950 Planned Disposition: Fdc Facility Anticipated Discharge Date: Discharge Date: Expected LOS: Initial Reviewer: [email or web address] Initial Review Date: 03/09/2019 Generated: 03/09/19 5:45 pm DCPIA - Discharge Planning Initial Assessment Updated by [email or web address]: Broderick Yo on 03/09/19 4:34 pm * Is the patient Alert and Oriented? Yes * How many steps to enter\exit or inside your home? NONE * PCP DR. BARRERA * [facility]acy [facility] [place] OR [facility], IN [place] * Preadmission Environment Home with Family * ADLs Independent * Equipment Cane Power Chair or Electric Scooter * Other Equipment [facility] IS PROVIDER OF EQUIPMENT * List name and contact numbers for known caregivers / representatives who currently or will assist patient after discharge: LILIAM DESAI, EX , * Verbal permission to speak to the caregivers and representatives has been obtained from the patient. N/A * Community resources currently utilized None * Please name any agencies selected above. NONE * Additional services required to return to the preadmission environment? Yes * Can the patient safely return to the preadmission environment? Yes * Has this patient been hospitalized within the prior 30 days at any hospital? No External Providers External Provider: [facility] Next Contact Date: 03/09/2019 Service Request Date: Service Type: Resolution: Reviewer: Comments: Last DP export: 03/09/19 3:38 Patient Name: MAKENZIE DESAI Page [phone] at 1646 All edits/amendments must be made on the electronic document DICTATION DATE: 03/09/198 OFFICE ELECTRICIAN: DM 03/09/19 1645 RPT#: [id number] DC DATE: STATUS: ADM IN [facility] [address] [place] [address] END OF REPORT
--- NOTE | 2019-03-09 16:53 | MORECARE ---
CASE MANAGEMENT DISCHARGE SUMMARY PATIENT: MAKENZIE DESAI UNIT: [id number] ADM DATE: 03/07/19 AGE: 68 : [birth year] SEX: M ROOM/BED: D.2101 AUTHOR: СЕРГЕЙ,DOC PHYSICIAN: REFERRING PHYSICIAN: EVONNE TAPIA MD DATE OF SERVICE: 03/09/19 Discharge Plan Patient Name: MAKENZIE DESAI Facility: [facility]:[place] : 07/23/1950 Planned Disposition: [facility]cc Facility Anticipated Discharge Date: Discharge Date: Expected LOS: Initial Reviewer: [email or web address] Initial Review Date: 03/09/2019 Generated: 03/09/19 5:53 pm Comments DCP- Discharge Planning Updated by [email or web address]: Broderick Yo on 03/09/19 3:[address] Patient Name: MAKENZIE DESAI Admission Status: ER Accout number: [id number] Admission Date: 03-07-2019 : 07-23-1950 Admission Diagnosis: Attending: EVONNE TAPIA Current LOS: 2 Anticipated DC Date: Planned Disposition: [facility] Facility Primary Insurance: MEDICARE PART A ONLY PLANNED EXTERNAL PROVIDER: [facility], MEDICARE REHAB BED Discharge Planning Comments: CM MET WITH PT IN ROOM TO DISCUSS DISCHARGE PLANNING AND NEEDS. PT REPORTS LIVING AT HOME INDEPENDENTLY WITH A FRIEND WHO WAS SPITTING THE RENT WITH HIM AT [facility]. THE FRIEND LEFT AND STOLE A "BUNCH OF STUFF" FROM PT. PT STATES HE WILL HAVE TO WORK OUT A NEW LIVING ARRANGEMENT WHEN HE IS ABLE TO WALK AND TAKE CARE OF HIMSELF AGAIN. PT HAS POWER WHEELCHAIR AND WALKER FROM [facility]. PT HAS NO OUTSIDE SERVICES ASSISTING IN THE HOME. CM DISCUSSED AVAILABILITY OF HOME HEALTH, REHAB SERVICES AND MEDICAL EQUIPMENT. PT STATES HE NEEDS REHAB AND WOULD LIKE TO RETURN TO [facility] OR HAVE REHAB AT THE [facility] IF DECLINED BY [facility]. CHOICE SIGNED. CM REVIEWED CHART NOTES, THERAPY INDICATED THAT PT HAS REFUSED FOR THE FIRST TWO OFFERED SESSIONS. CM SPOKE TO PT IN ROOM WHO INSISTS THAT HE DID NOT REFUSE, THAT THE THERAPIST ASKED PT TO STAND UP BY THE BED AND PT STATED HE COULD NOT. PT ENCOURAGED TO PARTICIPATE WITH THERAPY EACH TIME IT IS OFFERED AND EXPLAINED IF PT IS ASKING CM TO GET HIM INTO REHAB, PT NEEDS TO DO HIS PART AND PARTICIPATE EACH TIME WITH THERAPY. PT STATES UNDERSTANDING. CM FAXED REHAB REFERRAL TO [facility] AT [phone]. CM TO FOLLOW UP WITH JUAN OF [facility] AT [phone], AFTER GOLDEN, TO MAKE HER AWARE OF REHAB REFERRAL. CM WAITING PT'S PARTICIPATION WITH THERAPY SERVICES. Asphalt Coater: Broderick Yo DCPIA - Discharge Planning Initial Assessment Updated by [id number]: Broderick Yo on 03/09/19 4:34 pm * Is the patient Alert and Oriented? Yes * How many steps to enter\\exit or inside your home? NONE * PCP DR. BARRERA * [facility]acy [facility] IN [place] OR [facility], IN [place] * Preadmission Environment Home with Family * ADLs Independent * Equipment Cane Power Chair or Electric Scooter * Other Equipment [facility] IS PROVIDER OF EQUIPMENT * List name and contact numbers for known caregivers / representatives who currently or will assist patient after discharge: LILIAM DESAI, EX , * Verbal permission to speak to the caregivers and representatives has been obtained from the patient. N/A * Community resources currently utilized None * Please name any agencies selected above. NONE * Additional services required to return to the preadmission environment? Yes * Can the patient safely return to the preadmission environment? Yes * Has this patient been hospitalized within the prior 30 days at any hospital? No Coverage Notice Reviewer: [id number] - Broderick Yo Notice Issued Date-Time: 03/09/2019 16:05 Notice Type: Patient Choice Letter Notice Delivered To: Patient Relationship to Patient: Ophthalmic Medical Assistant Name: Delivery Method: HAND - Hand Delivered Colette Days: Prior Verbal Notification: Recipient Understood Notice: Yes Recipient Signature: Yes Med Rec Note Co-signed by Attending: Coverage Notice Comment: [facility] Last DP export: 03/09/19 3:46 Patient Name: MAKENZIE DESAI Page [phone] at 6463 All edits/amendments must be made on the electronic document DICTATION DATE: 03/09/191652 DIRECTOR PART: OSMEL 03/09/191652 RPT#: [id number] DC DATE: STATUS: ADM IN [facility] [address] [place] [address] END OF REPORT
[2019-03-09 17:43] VITALS: BP 122/75
--- NOTE | 2019-03-09 19:10 | NUR ---
BEDSIDE REPORT RECEIVED FROM DAY SHIFT, PT CARE ASSUMED. INTRODUCED SELF AND WROTE NAME ON BOARD. PT SITTING UP IN BED, AAOX4. DENIES ANY NEEDS AT THIS TIME. BED IN LOWEST POSITION, SR X2, CALL LIGHT WITHIN REACH. WILL CONTINUE TO MONITOR.
[2019-03-09 20:00] VITALS: BP 126/63
[2019-03-10] VITALS: BP 124/71
[2019-03-10 04:00] VITALS: BP 116/71
[2019-03-10 05:19] LABS: BASOPHILS 0.2 % (0-2); EOSINOPHILS 2.7 % (0-7); HEMATOCRIT 42.2 % (42.0-54.0); HEMOGLOBIN 12.9 g/dL (13.5-17.5); IMMATURE GRANULOCYTES 0.5 % (0-5); LYMPHOCYTES 8.5 % (15-50); MCHC 30.6 g/dL (31.0-37.0); MCV 81.9 fL (80.0-100.0); MONOCYTES 13.4 % (2-11); NEUTROPHILS 74.7 % (40-80); PLATELET COUNT 355 10x3/uL (130-400); RBC 5.15 10x6/uL (4.20-6.10); RDW 17.7 % (11.5-14.5); WBC 10.7 10x3/uL (4.8-10.8)
[2019-03-10 05:40] LABS: ALBUMIN 1.1 g/dL (3.4-5.0); ALKALINE PHOSPHATASE 177 U/L (46-116); ALT (SGPT) 17 U/L (10-68); BILIRUBIN - TOTAL 0.41 mg/dL (0.2-1.3); CALC OSMOLALITY 280 mosm/kg (275-300); CALCIUM 7.7 mg/dL (8.5-10.1); CARBON DIOXIDE 32.9 mmol/L (21.0-32.0); CHLORIDE - SERUM 102 mmol/L (98-107); CREATININE - SERUM 0.8 mg/dL (0.6-1.3); GLUCOSE 89 mg/dL (74-106); PROTEIN - SERUM 5.9 g/dL (6.4-8.2); SODIUM 140 mmol/L (136-145); UREA NITROGEN 21 mg/dL (7-18); eGFR NON AFRICAN AMERICAN > 90 mL/min (90-120)
[2019-03-10 08:07] VITALS: BP 118/68
--- NOTE | 2019-03-10 10:07 | NUR ---
PATIENT IS SITTING UP IN BED. REPORTS THAT HE WANTS HIS SOTOLOL DECREASED, AND THAT [facility] PAIN MEDICATION IS NOT WORKING. PATIENT STATES, HE HAS BEEN HER FOR DAYS AND HAS NOT SEEN A DR. HE WANTS TO SEE A DR. PATIENT IS REFUSING PT.
[2019-03-10 11:05] VITALS: BP 136/77
--- NOTE | 2019-03-10 11:09 | NUR ---
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 " WHEN I WENT BACK IN THE ROOM TO MOVE AWAY ALL HIS CORDS, IV POLE AND PHONE, HE DENIES SAYING ANYTHING LIKE THAT. I CALLED AND REPORTED WHAT HE SAID TO JACEY RAINES TO LABEL MACHINE OPERATOR, TO MY CHARGE NURSE AND CALLED [facility] TO COME DO AN EVALUATION. ANUM CHERRY FROM [facility] IS IN HER ROOM NOW. ALSO, JACEY RAINES IS IN THE ROOM NOW TALKING TO THE PATIENT.
--- NOTE | 2019-03-10 11:11 | NUR ---
According to the suicide assessment the patient rates low for suicide. He will not require a 1:1 observation at this time.
[2019-03-10 15:16] VITALS: BP 140/72
[2019-03-10 20:00] VITALS: BP 120/72
--- NOTE | 2019-03-10 20:38 | NUR ---
p[t resting in bed alert and oriented x4. pt on 4l nc at this time. 02-93%. no s/s of distress at this time. pt denies any further needs at this time. bed low call light within reach. will continue to monitor.
--- NOTE | 2019-03-10 21:51 | NUR ---
PT RESTING IN BED WITH EYES CLOSED. RR EVEN AND UNLABORED AT THIS TIME. VITALS STABLE. NO S/S OF DISTRESS NOTED. BED LOW CALL LIGHT WITHIN REACH. WILL CONTINUE TO MONITOR.
[2019-03-11] VITALS (7 sets, daily range): BP systolic 95–148; BP diastolic 62–80
--- NOTE | 2019-03-11 03:04 | NUR ---
I have reviewed this patient and I concur with the Shift Assessment completed by the Licensed Practical Nurse today this shift.
[2019-03-11 05:06] LABS: BASOPHILS 0.1 % (0-2); EOSINOPHILS 3.3 % (0-7); HEMATOCRIT 42.9 % (42.0-54.0); HEMOGLOBIN 13.1 g/dL (13.5-17.5); IMMATURE GRANULOCYTES 0.5 % (0-5); MCH 25.2 pg (26.0-34.0); MCHC 30.5 g/dL (31.0-37.0); MCV 82.5 fL (80.0-100.0); MEAN PLATELET VOLUME 9.6 fL (7.4-10.4); MONOCYTES 12.9 % (2-11); NEUTROPHILS 73.2 % (40-80); PLATELET COUNT 345 10x3/uL (130-400); RDW 17.4 % (11.5-14.5)
[2019-03-11 05:15] LABS: ALBUMIN 1.2 g/dL (3.4-5.0); ALKALINE PHOSPHATASE 222 U/L (46-116); BILIRUBIN - TOTAL 0.35 mg/dL (0.2-1.3); CALC OSMOLALITY 283 mosm/kg (275-300); CALCIUM 7.4 mg/dL (8.5-10.1); CARBON DIOXIDE 34.3 mmol/L (21.0-32.0); CHLORIDE - SERUM 102 mmol/L (98-107); CREATININE - SERUM 0.9 mg/dL (0.6-1.3); GLUCOSE 107 mg/dL (74-106); POTASSIUM - SERUM 4.6 mmol/L (3.5-5.1); PROTEIN - SERUM 5.5 g/dL (6.4-8.2); SODIUM 141 mmol/L (136-145); UREA NITROGEN 22 mg/dL (7-18); eGFR NON AFRICAN AMERICAN 89 mL/min (90-120)
[2019-03-11 05:18] LABS: ALT (SGPT) 23 U/L (10-68)
--- NOTE | 2019-03-11 07:21 | NUR ---
PT RECEIVED LAYING IN BED, RESTING QUIETLY. PT IN CONTACT ISOLATION. LEGS ARE SCALY AND DRY, SCROTUM IS SWOLLEN.
--- NOTE | 2019-03-11 13:47 | NUR ---
Nutrition Follow-up: Diet: Renal PO intake: 100% this AM Wt: 249# (03/10); 250# (03/07 - stated) - daily wts ordered. No BMs recorded Labs noted: K+ 4.6, GFR 89, Glu 107, Ca 7.4, Alb 1.2, PO4 4.5 (03/08) Meds noted: Bumex -Rec may consider liberalizing to cardiac diet; K+ & PO4 wnl. -RD following.
--- NOTE | 2019-03-11 14:14 | MORECARE ---
CASE MANAGEMENT DISCHARGE SUMMARY PATIENT: MAKENZIE DESAI UNIT: [id number] ADM DATE: 03/07/19 AGE: 68 : [birth year] SEX: M ROOM/BED: D.2102 AUTHOR: СЕРГЕЙ,DOC PHYSICIAN: REFERRING PHYSICIAN: EVONNE TAPIA MD DATE OF SERVICE: 03/11/19 Discharge Plan Patient Name: MAKENZIE DESAI Facility: [facility]:[place] : 07/23/1950 Planned Disposition: Correction Facility Anticipated Discharge Date: Discharge Date: Expected LOS: Initial Reviewer: [id number] Initial Review Date: 03/09/2019 Generated: 03/11/19 3:14 pm Comments DCP- Discharge Planning Updated by [email or web address]: Broderick Yo on 03/11/19 1:[address] Patient Name: MAKENZIE DESAI Encounter No: [id number] : 07-23-1950 Primary Insurance: MEDICARE PART A ONLY Anticipated DC Date: Planned Disposition: Correction Facility External Planned Provider:[facility], MEDICARE REHAB BED Discharge Planning Comments: DEXTER RECEIVED CALL FROM CHIDI OF [facility], , WHO HAS RECEIVED REFERRAL AND THEY ARE SCREENING FOR SKILLED ADMISSION. CHIDI REPORTS PT MUST PARTICIPATE WITH THERAPY AND MUST PROVIDE HIS MEDICARE NUMBER. DEXTER REVIEWED CHART NOTES, THERAPY INDICATED THAT PT HAS REFUSED THERAPY AND THERAPY HAS SIGNED OFF DUE TO REFUSALS. DEXTER MET WITH PT ROOM WHO INSISTS AGAIN THAT HE DID NOT REFUSE, CM EXPLAINED THAT IF PT STATES HE WILL DO SOMTHING AND DOES NOT TAKE PHYSICAL ACTION IN EFFORT TO PARTICIPATE, HE IS INDEED REFUSING. CM EDUCATED PT THAT [facility] NEEDS HIM TO PARTICIPATE WITH ANY OFFERED THERAPY. PT ASSURED CM HE WILL PARTICIPATE WITH THERAPY. DEXTER EXPLAINED THAT PT WILL NEED MEDICARE NUMBER. PT ASKED FOR MEDICARE CONTACT PHONE NUMBER HE DOES NOT HAVE A MEDICARE CARD AND NEVER RECEIVED IT BUT INSISTED HE DOES HAVE MEDICARE. PT LATER CALLED CM AND PROVIDED MEDICARE [id number], [id number]. CM FAXED THIS NUMBER WITH UPDATE TO [facility] AT [phone]. CM WAITING ADMISSION DETERMINATION FROM [facility]. CM WAITING PT'S PARTICIPATION WITH THERAPY SERVICES. Wood Bucker: Broderick Yo DCP- Discharge Planning Updated by [id number]: Broderick Yo on 03/09/19 3:[address] Patient Name: MAKENZIE DESAI Admission Status: ER Accout number: [id number] Admission Date: 03-07-2019 : 07-23-1950 Admission Diagnosis: Attending: EVONNE TAPIA Current LOS: 2 Anticipated DC Date: Planned Disposition: [facility] Facility Primary Insurance: MEDICARE PART A ONLY PLANNED EXTERNAL PROVIDER: [facility], MEDICARE REHAB BED Discharge Planning Comments: CM MET WITH PT IN ROOM TO DISCUSS DISCHARGE PLANNING AND NEEDS. PT REPORTS LIVING AT HOME INDEPENDENTLY WITH A FRIEND WHO WAS SPITTING THE RENT WITH HIM AT [facility]. THE FRIEND LEFT AND STOLE A "BUNCH OF STUFF" FROM PT. PT STATES HE WILL HAVE TO WORK OUT A NEW LIVING ARRANGEMENT WHEN HE IS ABLE TO WALK AND TAKE CARE OF HIMSELF AGAIN. PT HAS POWER WHEELCHAIR AND WALKER FROM [facility]. PT HAS NO OUTSIDE SERVICES ASSISTING IN THE HOME. CM DISCUSSED AVAILABILITY OF HOME HEALTH, REHAB SERVICES AND MEDICAL EQUIPMENT. PT STATES HE NEEDS REHAB AND WOULD LIKE TO RETURN TO [facility] OR HAVE REHAB AT THE [facility] [place] IF DECLINED BY [facility]. CHOICE SIGNED. CM REVIEWED CHART NOTES, THERAPY INDICATED THAT PT HAS REFUSED FOR THE FIRST TWO OFFERED SESSIONS. CM SPOKE TO PT IN ROOM WHO INSISTS THAT HE DID NOT REFUSE, THAT THE THERAPIST ASKED PT TO STAND UP BY THE BED AND PT STATED HE COULD NOT. PT ENCOURAGED TO PARTICIPATE WITH THERAPY EACH TIME IT IS OFFERED AND EXPLAINED IF PT IS ASKING CM TO GET HIM INTO REHAB, PT NEEDS TO DO HIS PART AND PARTICIPATE EACH TIME WITH THERAPY. PT STATES UNDERSTANDING. CM FAXED REHAB REFERRAL TO [facility] AT [phone]. CM TO FOLLOW UP WITH JUAN OF [facility] AT [phone], AFTER GOLDEN, TO MAKE HER AWARE OF REHAB REFERRAL. CM WAITING PT'S PARTICIPATION WITH THERAPY SERVICES. Wood Bucker: Broderick Yo DCPIA - Discharge Planning Initial Assessment Updated by [email or web address]: Broderick Yo on 03/09/19 4:34 pm * Is the patient Alert and Oriented? Yes * How many steps to enter\\exit or inside your home? NONE * PCP DR. BARRERA * [facility]acy [facility] [place] OR [facility], IN [place] * Preadmission Environment Home with Family * ADLs Independent * Equipment Cane Power Chair or Electric Scooter * Other Equipment [facility] IS PROVIDER OF EQUIPMENT * List name and contact numbers for known caregivers / representatives who currently or will assist patient after discharge: LILIAM DESAI, EX , * Verbal permission to speak to the caregivers and representatives has been obtained from the patient. N/A * Community resources currently utilized None * Please name any agencies selected above. NONE * Additional services required to return to the preadmission environment? Yes * Can the patient safely return to the preadmission environment? Yes * Has this patient been hospitalized within the prior 30 days at any hospital? No Coverage Notice Reviewer: [id number] Christian Yo Notice Issued Date-Time: 03/09/2019 16:05 Notice Type: Patient Choice Letter Notice Delivered To: Patient Relationship to Patient: Beader Name: Delivery Method: HAND - Hand Delivered Colette Days: Prior Verbal Notification: Recipient Understood Notice: Yes Recipient Signature: Yes Med Rec Note Co-signed by Attending: Coverage Notice Comment: [facility] Last DP export: 03/09/19 3:53 Patient Name: MAKENZIE DESAI Page [phone] at 1414 All edits/amendments must be made on the electronic document DICTATION DATE: 03/11/191413 PRIOR AUTHORIZATION TECHNICIAN: OSMEL 03/11/191413 RPT#: [id number] DC DATE: STATUS: ADM IN [facility] [address] [place] [address] END OF REPORT
--- NOTE | 2019-03-11 15:29 | NUR ---
PT TURNED AND CLEANED, LINENS CHANGED, BATHED. SCROTUM SWOLLEN AND ELEVATED ON PILLOW. NYSTATIN POWDER APPLIED TO ABD FOLDS AND GROIN. EGG CRATE ON BED, PTS BUTT CHEEKS WITH AREA OF SHEERING AND SMALL AMT BLEEDING NOTED. BUDROW PASTE APPLIED.
--- NOTE | 2019-03-11 23:11 | NUR ---
PT RESTING IN BED WITH EYES CLOSED RR EVEN AND UNLABORED. PT VITALS STABLE. NO S/S OF DISTRESS AT THIS TIME. BED LOW CALL LIGHT WITHIN REACH. WILL CONTINUE TO MONITOR.
[2019-03-12 03:50] VITALS: BP 132/72
[2019-03-12 06:05] LABS: BASOPHILS 0.1 % (0-2); EOSINOPHILS 3.1 % (0-7); HEMOGLOBIN 12.6 g/dL (13.5-17.5); IMMATURE GRANULOCYTES 0.5 % (0-5); LYMPHOCYTES 10.4 % (15-50); MCH 25.3 pg (26.0-34.0); MCHC 30.7 g/dL (31.0-37.0); MCV 82.3 fL (80.0-100.0); MONOCYTES 11.8 % (2-11); NEUTROPHILS 74.1 % (40-80); PLATELET COUNT 383 10x3/uL (130-400); RBC 4.98 10x6/uL (4.20-6.10); RDW 17.4 % (11.5-14.5); WBC 10.6 10x3/uL (4.8-10.8)
[2019-03-12 06:29] LABS: ALBUMIN 1.1 g/dL (3.4-5.0); ALKALINE PHOSPHATASE 201 U/L (46-116); ALT (SGPT) 22 U/L (10-68); BILIRUBIN - TOTAL 0.56 mg/dL (0.2-1.3); CALC OSMOLALITY 285 mosm/kg (275-300); CALCIUM 7.5 mg/dL (8.5-10.1); CARBON DIOXIDE 36.9 mmol/L (21.0-32.0); CHLORIDE - SERUM 103 mmol/L (98-107); CREATININE - SERUM 0.8 mg/dL (0.6-1.3); GLUCOSE 101 mg/dL (74-106); SODIUM 142 mmol/L (136-145); UREA NITROGEN 22 mg/dL (7-18); eGFR NON AFRICAN AMERICAN > 90 mL/min (90-120)
[2019-03-12 06:30] LABS: POTASSIUM - SERUM 3.7 mmol/L (3.5-5.1)
--- NOTE | 2019-03-12 07:42 | NUR ---
REPORT RECIEVED. PT SITTING UP IN BED EATING BREAKFAST. RR EVEN AND UNLABORED ON 3L NC. HE HAS A RODGERS DRAINING URINE AND A L UPPER ARM MIDLINE THAT IS SL. BED LOCKED AND IN LOWEST POSITION CALL LIGHT WITHIN REACH. WILL CTM
[2019-03-12 09:43] VITALS: BP 121/77
[2019-03-12 12:14] VITALS: BP 138/59
--- NOTE | 2019-03-12 15:46 | MORECARE ---
CASE MANAGEMENT DISCHARGE SUMMARY PATIENT: MAKENZIE DESAI UNIT: [id number] ADM DATE: 03/07/19 AGE: 68 : [birth year] SEX: M ROOM/BED: D.2102 AUTHOR: СЕРГЕЙ,DOC PHYSICIAN: REFERRING PHYSICIAN: EVONNE TAPIA MD DATE OF SERVICE: 03/12/19 Discharge Plan Patient Name: MAKENZIE DESAI Facility: [facility]:[place] : 07/23/1950 Planned Disposition: Senior Care Facility Anticipated Discharge Date: Discharge Date: Expected LOS: Initial Reviewer: [id number] Initial Review Date: 03/09/2019 Generated: 03/12/19 4:46 pm Comments DCP- Discharge Planning Updated by [id number]: Broderick Yo on 03/11/19 1:[address] Patient Name: MAKENZIE DESAI Encounter No: [id number] : 07-23-1950 Primary Insurance: MEDICARE PART A ONLY Anticipated DC Date: Planned Disposition: Senior Care Facility External Planned Provider:[facility], MEDICARE REHAB BED Discharge Planning Comments: DEXTER RECEIVED CALL FROM CHIDI OF [facility], , WHO HAS RECEIVED REFERRAL AND THEY ARE SCREENING FOR SKILLED ADMISSION. CHIDI REPORTS PT MUST PARTICIPATE WITH THERAPY AND MUST PROVIDE HIS MEDICARE NUMBER. DEXTER REVIEWED CHART NOTES, THERAPY INDICATED THAT PT HAS REFUSED THERAPY AND THERAPY HAS SIGNED OFF DUE TO REFUSALS. DEXTER MET WITH PT ROOM WHO INSISTS AGAIN THAT HE DID NOT REFUSE, CM EXPLAINED THAT IF PT STATES HE WILL DO SOMTHING AND DOES NOT TAKE PHYSICAL ACTION IN EFFORT TO PARTICIPATE, HE IS INDEED REFUSING. CM EDUCATED PT THAT [facility] NEEDS HIM TO PARTICIPATE WITH ANY OFFERED THERAPY. PT ASSURED CM HE WILL PARTICIPATE WITH THERAPY. DEXTER EXPLAINED THAT PT WILL NEED MEDICARE NUMBER. PT ASKED FOR MEDICARE CONTACT PHONE NUMBER HE DOES NOT HAVE A MEDICARE CARD AND NEVER RECEIVED IT BUT INSISTED HE DOES HAVE MEDICARE. PT LATER CALLED CM AND PROVIDED MEDICARE [id number], [id number]. CM FAXED THIS NUMBER WITH UPDATE TO [facility] AT [phone]. CM WAITING ADMISSION DETERMINATION FROM [facility]. CM WAITING PT'S PARTICIPATION WITH THERAPY SERVICES. Recycling Collections Driver: Broderick Yo DCP- Discharge Planning Updated by [id number]: Broderick Yo on 03/09/19 3:[address] Patient Name: MAKENZIE DESAI Admission Status: ER Accout number: [id number] Admission Date: 03-07-2019 : 07-23-1950 Admission Diagnosis: Attending: EVONNE TAPIA Current LOS: 2 Anticipated DC Date: Planned Disposition: Senior Care Facility Primary Insurance: MEDICARE PART A ONLY PLANNED EXTERNAL PROVIDER: [facility], MEDICARE REHAB BED Discharge Planning Comments: CM MET WITH PT IN ROOM TO DISCUSS DISCHARGE PLANNING AND NEEDS. PT REPORTS LIVING AT HOME INDEPENDENTLY WITH A FRIEND WHO WAS SPITTING THE RENT WITH HIM AT [facility]. THE FRIEND LEFT AND STOLE A "BUNCH OF STUFF" FROM PT. PT STATES HE WILL HAVE TO WORK OUT A NEW LIVING ARRANGEMENT WHEN HE IS ABLE TO WALK AND TAKE CARE OF HIMSELF AGAIN. PT HAS POWER WHEELCHAIR AND WALKER FROM [facility]. PT HAS NO OUTSIDE SERVICES ASSISTING IN THE HOME. CM DISCUSSED AVAILABILITY OF HOME HEALTH, REHAB SERVICES AND MEDICAL EQUIPMENT. PT STATES HE NEEDS REHAB AND WOULD LIKE TO RETURN TO [facility] OR HAVE REHAB AT THE [facility] IF DECLINED BY [facility]. CHOICE SIGNED. CM REVIEWED CHART NOTES, THERAPY INDICATED THAT PT HAS REFUSED FOR THE FIRST TWO OFFERED SESSIONS. CM SPOKE TO PT IN ROOM WHO INSISTS THAT HE DID NOT REFUSE, THAT THE THERAPIST ASKED PT TO STAND UP BY THE BED AND PT STATED HE COULD NOT. PT ENCOURAGED TO PARTICIPATE WITH THERAPY EACH TIME IT IS OFFERED AND EXPLAINED IF PT IS ASKING CM TO GET HIM INTO REHAB, PT NEEDS TO DO HIS PART AND PARTICIPATE EACH TIME WITH THERAPY. PT STATES UNDERSTANDING. CM FAXED REHAB REFERRAL TO [facility] AT [phone]. CM TO FOLLOW UP WITH JUAN OF [facility] AT [phone], AFTER [place], TO MAKE HER AWARE OF REHAB REFERRAL. CM WAITING PT'S PARTICIPATION WITH THERAPY SERVICES. Recycling Collections Driver: Broderick Yo DCPIA - Discharge Planning Initial Assessment Updated by [email or web address]: Broderick Yo on 03/09/19 4:34 pm * Is the patient Alert and Oriented? Yes * How many steps to enter\\exit or inside your home? NONE * PCP DR. BARRERA * [facility]acy [facility] [place] [facility], IN [place] * Preadmission Environment Home with Family * ADLs Independent * Equipment Cane Power Chair or Electric Scooter * Other Equipment [facility] IS PROVIDER OF EQUIPMENT * List name and contact numbers for known caregivers / representatives who currently or will assist patient after discharge: LILIAM DESAI, EX , * Verbal permission to speak to the caregivers and representatives has been obtained from the patient. N/A * Community resources currently utilized None * Please name any agencies selected above. NONE * Additional services required to return to the preadmission environment? Yes * Can the patient safely return to the preadmission environment? Yes * Has this patient been hospitalized within the prior 30 days at any hospital? No Coverage Notice Reviewer: [id number] Christian Yo Notice Issued Date-Time: 03/09/2019 16:05 Notice Type: Patient Choice Letter Notice Delivered To: Patient Relationship to Patient: Band Sawing Machine Operator Name: Delivery Method: HAND - Hand Delivered Colette Days: Prior Verbal Notification: Recipient Understood Notice: Yes Recipient Signature: Yes Med Rec Note Co-signed by Attending: Coverage Notice Comment: [facility] Last DP export: 03/11/19 1:14 Patient Name: MAKENZIE DESAI Page [id number] at 1546 All edits/amendments must be made on the electronic document DICTATION DATE: 03/12/191545 DEALMAKER: OSMEL 03/12/19 154 RPT#: [id number] DC DATE: STATUS: ADM IN [facility] [address] [place] [address] END OF REPORT
--- NOTE | 2019-03-12 15:55 | MORECARE ---
CASE MANAGEMENT DISCHARGE SUMMARY PATIENT: MAKENZIE DESAI UNIT: [id number] ADM DATE: 03/07/19 AGE: 68 : [birth year] SEX: M ROOM/BED: D.2102 AUTHOR: СЕРГЕЙ,DOC PHYSICIAN: REFERRING PHYSICIAN: EVONNE TAPIA MD DATE OF SERVICE: 03/12/19 Discharge Plan Patient Name: MAKENZIE DESAI Facility: [facility]:[place] : 07/23/1950 Planned Disposition: [facility] Facility Anticipated Discharge Date: Discharge Date: Expected LOS: Initial Reviewer: [id number] Initial Review Date: 03/09/2019 Generated: 03/12/19 4:54 pm Comments DCP- Discharge Planning Updated by [id number]: Broderick Yo on 03/12/19 2:[address] Patient Name: MAKENZIE DESAI Encounter No: [id number] : 07-23-1950 Primary Insurance: MEDICARE PART A ONLY Anticipated DC Date: Planned Disposition: [facility] Facility External Planned Provider: [facility], MEDICARE REHAB BED Discharge Planning Comments: CM REVIEWED CHART NOTES, THERAPY INDICATED THAT PT HAS REFUSED THERAPY AND THERAPY HAS SIGNED OFF DUE TO REFUSALS. CM SPOKE TO DR. TAPIA AND JACEY PERKINS, OBTAINED NEW THERAPY ORDERS. CM MET WITH PT ROOM WHO ASSURED CM HE WILL PARTICIPATE WITH THERAPY AND UNDERSTANDS HE NEEDS TO FOR REHAB PLACEMENT. CM FAXED UPDATE TO [facility] AT [phone]. CM WAITING ADMISSION DETERMINATION FROM [facility]. CM WAITING PT'S PARTICIPATION WITH THERAPY SERVICES. Silverer: Broderick Yo DCP- Discharge Planning Updated by [id number]: Broderick Yo on 03/11/19 1:[address] Patient Name: MAKENZIE DESAI Encounter No: [id number] : 07-23-1950 Primary Insurance: MEDICARE PART A ONLY Anticipated DC Date: Planned Disposition: [facility] Facility External Planned Provider:[facility], MEDICARE REHAB BED Discharge Planning Comments: DEXTER RECEIVED CALL FROM CHIDI OF [facility], , WHO HAS RECEIVED REFERRAL AND THEY ARE SCREENING FOR SKILLED ADMISSION. CHIDI REPORTS PT MUST PARTICIPATE WITH THERAPY AND MUST PROVIDE HIS MEDICARE NUMBER. DEXTER REVIEWED CHART NOTES, THERAPY INDICATED THAT PT HAS REFUSED THERAPY AND THERAPY HAS SIGNED OFF DUE TO REFUSALS. CM MET WITH PT ROOM WHO INSISTS AGAIN THAT HE DID NOT REFUSE, CM EXPLAINED THAT IF PT STATES HE WILL DO SOMTHING AND DOES NOT TAKE PHYSICAL ACTION IN EFFORT TO PARTICIPATE, HE IS INDEED REFUSING. CM EDUCATED PT THAT [facility] NEEDS HIM TO PARTICIPATE WITH ANY OFFERED THERAPY. PT ASSURED CM HE WILL PARTICIPATE WITH THERAPY. CM EXPLAINED THAT PT WILL NEED MEDICARE NUMBER. PT ASKED FOR MEDICARE CONTACT PHONE NUMBER HE DOES NOT HAVE A MEDICARE CARD AND NEVER RECEIVED IT BUT INSISTED HE DOES HAVE MEDICARE. PT LATER CALLED CM AND PROVIDED MEDICARE [id number], [id number]. CM FAXED THIS NUMBER WITH UPDATE TO [facility] AT [phone]. CM WAITING ADMISSION DETERMINATION FROM [facility]. CM WAITING PT'S PARTICIPATION WITH THERAPY SERVICES. Silverer: Broderick Yo DCP- Discharge Planning Updated by [id number]: Broderick Yo on 03/09/19 3:[address] Patient Name: MAKENZIE DESAI Admission Status: ER Accout number: [id number] Admission Date: 03-07-2019 : 07-23-1950 Admission Diagnosis: Attending: EVONNE TAPIA Current LOS: 2 Anticipated DC Date: Planned Disposition: [facility] Facility Primary Insurance: MEDICARE PART A ONLY PLANNED EXTERNAL PROVIDER: [facility], MEDICARE REHAB BED Discharge Planning Comments: CM MET WITH PT IN ROOM TO DISCUSS DISCHARGE PLANNING AND NEEDS. PT REPORTS LIVING AT HOME INDEPENDENTLY WITH A FRIEND WHO WAS SPITTING THE RENT WITH HIM AT [facility]. THE FRIEND LEFT AND STOLE A "BUNCH OF STUFF" FROM PT. PT STATES HE WILL HAVE TO WORK OUT A NEW LIVING ARRANGEMENT WHEN HE IS ABLE TO WALK AND TAKE CARE OF HIMSELF AGAIN. PT HAS POWER WHEELCHAIR AND WALKER FROM [facility]. PT HAS NO OUTSIDE SERVICES ASSISTING IN THE HOME. CM DISCUSSED AVAILABILITY OF HOME HEALTH, REHAB SERVICES AND MEDICAL EQUIPMENT. PT STATES HE NEEDS REHAB AND WOULD LIKE TO RETURN TO [facility] OR HAVE REHAB AT THE [facility] IF DECLINED BY [facility]. CHOICE SIGNED. CM REVIEWED CHART NOTES, THERAPY INDICATED THAT PT HAS REFUSED FOR THE FIRST TWO OFFERED SESSIONS. CM SPOKE TO PT IN ROOM WHO INSISTS THAT HE DID NOT REFUSE, THAT THE THERAPIST ASKED PT TO STAND UP BY THE BED AND PT STATED HE COULD NOT. PT ENCOURAGED TO PARTICIPATE WITH THERAPY EACH TIME IT IS OFFERED AND EXPLAINED IF PT IS ASKING CM TO GET HIM INTO REHAB, PT NEEDS TO DO HIS PART AND PARTICIPATE EACH TIME WITH THERAPY. PT STATES UNDERSTANDING. CM FAXED REHAB REFERRAL TO [facility] AT [phone]. CM TO FOLLOW UP WITH JUAN OF [facility] AT [phone], AFTER [place], TO MAKE HER AWARE OF REHAB REFERRAL. CM WAITING PT'S PARTICIPATION WITH THERAPY SERVICES. Silverer: Broderick Yo DCPIA - Discharge Planning Initial Assessment Updated by [id number]: Broderick Yo on 03/09/19 4:34 pm * Is the patient Alert and Oriented? Yes * How many steps to enter\\exit or inside your home? NONE * PCP DR. BARRERA * [facility]acy [facility] [place] OR [facility], IN [place] * Preadmission Environment Home with Family * ADLs Independent * Equipment Cane Power Chair or Electric Scooter * Other Equipment [facility] IS PROVIDER OF EQUIPMENT * List name and contact numbers for known caregivers / representatives who currently or will assist patient after discharge: LILIAM DESAI, EX , * Verbal permission to speak to the caregivers and representatives has been obtained from the patient. N/A * Community resources currently utilized None * Please name any agencies selected above. NONE * Additional services required to return to the preadmission environment? Yes * Can the patient safely return to the preadmission environment? Yes * Has this patient been hospitalized within the prior 30 days at any hospital? No Coverage Notice Reviewer: [id number] - Broderick Yo Notice Issued Date-Time: 03/09/2019 16:05 Notice Type: Patient Choice Letter Notice Delivered To: Patient Relationship to Patient: Academic Adviser Name: Delivery Method: HAND - Hand Delivered Colette Days: Prior Verbal Notification: Recipient Understood Notice: Yes Recipient Signature: Yes Med Rec Note Co-signed by Attending: Coverage Notice Comment: [facility] Last DP export: 03/12/19 2:46 Patient Name: MAKENZIE DESAI Page [phone] at 1269 All edits/amendments must be made on the electronic document DICTATION DATE: 03/12/19 3825 INFORMATICS ANALYST: OSMEL 03/12/19 6552 RPT#: [id number] DC DATE: STATUS: ADM IN [facility] [address] [place] [address] END OF REPORT
[2019-03-12 16:17] VITALS: BP 136/72
--- NOTE | 2019-03-12 18:33 | NUR ---
RESTS IN ISOLATION ROOM WITH CALL LIGHT IN REACH. RESP UL ON . ANA MARIA INTACT. WILL CONT. PLAN OF CARE.
--- NOTE | 2019-03-12 19:15 | NUR ---
PT YELLING AND VERY UPSET STATING THIS IS THE 3RD NIGHT HE HAS ORDERED A DINNER TRAY BUT DID NOT RECIEVE IT. OFFERED PT A SANDWICH. HE DECLINED STATING HE IS SICK OF THE SANDWICHES AND WILL ORDER A PIZZA. PT ALSO STATING HE IS IN SEVERE PAIN RATED 10/10 FROM HIS ABDOMEN ALL THE WAY DOWN TO HIS TOES. HE STATES THAT HE NEEDS SOMETHING STRONGER FOR PAIN. CALLED JACEY GOLDEN REGARDING THE ABOVE. NO NEW ORDERS GIVEN AT THIS TIME. TOLD PT TO TALK TO THE ROUNDING MD OR LINUX ADMINISTRATOR TOMORROW. HE VERBALIZED UNDERSTANDING AND DENIES FURTHER NEEDS. BED LOW AND CALL LIGHT REACH.
[2019-03-12 20:00] VITALS: BP 115/64
[2019-03-13] VITALS: BP 114/62
[2019-03-13 04:00] VITALS: BP 111/60
[2019-03-13 05:08] LABS: BASOPHILS 0.2 % (0-2); EOSINOPHILS 3.6 % (0-7); HEMATOCRIT 40.9 % (42.0-54.0); HEMOGLOBIN 12.3 g/dL (13.5-17.5); IMMATURE GRANULOCYTES 0.5 % (0-5); LYMPHOCYTES 10.8 % (15-50); MCH 24.7 pg (26.0-34.0); MCHC 30.1 g/dL (31.0-37.0); MCV 82.3 fL (80.0-100.0); MEAN PLATELET VOLUME 9.5 fL (7.4-10.4); MONOCYTES 14.1 % (2-11); NEUTROPHILS 70.8 % (40-80); PLATELET COUNT 378 10x3/uL (130-400); RBC 4.97 10x6/uL (4.20-6.10); RDW 17.7 % (11.5-14.5); WBC 9.8 10x3/uL (4.8-10.8)
[2019-03-13 05:33] LABS: ALBUMIN 1.1 g/dL (3.4-5.0); ALKALINE PHOSPHATASE 232 U/L (46-116); ALT (SGPT) 19 U/L (10-68); BILIRUBIN - TOTAL 0.37 mg/dL (0.2-1.3); CALC OSMOLALITY 287 mosm/kg (275-300); CALCIUM 7.5 mg/dL (8.5-10.1); CHLORIDE - SERUM 102 mmol/L (98-107); CREATININE - SERUM 0.9 mg/dL (0.6-1.3); GLUCOSE 118 mg/dL (74-106); POTASSIUM - SERUM 3.4 mmol/L (3.5-5.1); PROTEIN - SERUM 5.7 g/dL (6.4-8.2); SODIUM 142 mmol/L (136-145); UREA NITROGEN 25 mg/dL (7-18); eGFR NON AFRICAN AMERICAN 89 mL/min (90-120)
--- NOTE | 2019-03-13 05:59 | NUR ---
PTS POTASSIUM 3.4. ACCORDING TO ELECTROLYTE PROTOCOL PT NEEDS 40MEQ OF POTASSIUM. PT REFUSED STATING "ADDING ALL THESE NEW MEDICATION GET HIM OUT OF WHACK." INFORMED HIM OF THE ELECTROLYTE PROTOCOL BUT HE STILL DECLINED THE POTASSIUM.
[2019-03-13 08:26] VITALS: BP 134/63
[2019-03-13 12:03] VITALS: BP 128/61
[2019-03-13 16:16] VITALS: BP 131/68
--- NOTE | 2019-03-13 19:11 | NUR ---
RECEIVED UP IN BED WITH EYES OPEN AND TV ON. ALERT AND ORIENTED X4. REMAINS BEDFAST. O2@ 3 LITERS PER N/C. IV TO LEFT UPPER ARM (MIDLINE). RESERVE LEFT ARM PER PT.. DEERING AT TIMES. F/C PATENT WITH STRAW COLOR URINE DRAINING TO BEDSIDE DRAINAGE BAG. SCROTUM SWOLLEN. REMAINS IN ISOLATION. DENEIES ANY NEEDS AT THIS TIME.
[2019-03-13 20:00] VITALS: BP 116/48
[2019-03-14] VITALS: BP 119/75
[2019-03-14 04:00] VITALS: BP 109/68
[2019-03-14 05:04] LABS: BASOPHILS 0.1 % (0-2); EOSINOPHILS 3.7 % (0-7); HEMATOCRIT 42.6 % (42.0-54.0); HEMOGLOBIN 12.9 g/dL (13.5-17.5); IMMATURE GRANULOCYTES 0.5 % (0-5); LYMPHOCYTES 10.5 % (15-50); MCH 24.8 pg (26.0-34.0); MCHC 30.3 g/dL (31.0-37.0); MCV 81.9 fL (80.0-100.0); MEAN PLATELET VOLUME 9.2 fL (7.4-10.4); MONOCYTES 14.8 % (2-11); NEUTROPHILS 70.4 % (40-80); PLATELET COUNT 371 10x3/uL (130-400); RDW 17.2 % (11.5-14.5); WBC 9.9 10x3/uL (4.8-10.8)
[2019-03-14 05:22] LABS: CALC OSMOLALITY 286 mosm/kg (275-300); CALCIUM 7.6 mg/dL (8.5-10.1); CHLORIDE - SERUM 101 mmol/L (98-107); CREATININE - SERUM 0.8 mg/dL (0.6-1.3); GLUCOSE 107 mg/dL (74-106); POTASSIUM - SERUM 3.4 mmol/L (3.5-5.1); SODIUM 142 mmol/L (136-145); UREA NITROGEN 23 mg/dL (7-18); eGFR NON AFRICAN AMERICAN > 90 mL/min (90-120)
--- NOTE | 2019-03-14 07:45 | NUR ---
SITTING UP IN BED EATING BREAKFAST. DENIES ANY NEEDS AT PRESENT TIME AND IS VERY PLEASANT AND CONVERSANT THIS MORNING. ASSESSMENT COMPLETED AND WILL CONTINUE POC. 02 ON PER N/C AT 3 L/M WITH RESP EVEN AND UNLABORED. RODGERS PATENT AND DRAINING LIGHT JOSE COLORED URINE TO BEDSIDE SIDE DRAINAGE. MIDLINE IV PATENT TO UPPER LEFT ARM. CALL LIGHT IN REACH AND BED IN LOW POSITION.
[2019-03-14 08:19] VITALS: BP 117/51
[2019-03-14 11:48] VITALS: BP 126/53
--- NOTE | 2019-03-14 13:58 | NUR ---
I have reviewed this patient and I concur with the Shift Assessment completed by the Licensed Practical Nurse today this shift.
[2019-03-14 16:44] VITALS: BP 116/55
--- NOTE | 2019-03-14 19:50 | NUR ---
RECEIVED REPORT. RESTING IN BED RECEIVING UPDRAFT WITH EYES CLOSED. ALERT AND ORIENTED X4. UP AD IMER. LEFT ARM RESERVED D/T IVC FILTER. REMAINS IN ISOLATION. LOWER EXTREMITIES DISCLORED. F/C PATENT WITH CLEAR YELLOW URINE DRAINING TO BEDSIDE DRAINAGE SYSTYEM. TELEMETRY IN PLACE. PICC LINE TO LEFT UPPER ARM SL.. REMAIN ON STRICT I&O'S. HOWEVER IS NONCOMPLIANT. SCROTUM CONT TO BE SWOLLEN. DENIES ANY NEEDS AT THIS TIME.
[2019-03-14 20:00] VITALS: BP 106/66
[2019-03-15] VITALS: BP 116/56
[2019-03-15 04:00] VITALS: BP 113/78
[2019-03-15 05:33] LABS: BASOPHILS 0.2 % (0-2); EOSINOPHILS 4.7 % (0-7); HEMATOCRIT 40.8 % (42.0-54.0); HEMOGLOBIN 12.1 g/dL (13.5-17.5); IMMATURE GRANULOCYTES 0.6 % (0-5); LYMPHOCYTES 13.4 % (15-50); MCH 24.8 pg (26.0-34.0); MCHC 29.7 g/dL (31.0-37.0); MCV 83.8 fL (80.0-100.0); MEAN PLATELET VOLUME 9.7 fL (7.4-10.4); MONOCYTES 14.5 % (2-11); NEUTROPHILS 66.6 % (40-80); PLATELET COUNT 370 10x3/uL (130-400); RBC 4.87 10x6/uL (4.20-6.10); RDW 17.8 % (11.5-14.5); WBC 8.8 10x3/uL (4.8-10.8)
[2019-03-15 06:02] LABS: CALC OSMOLALITY 284 mosm/kg (275-300); CALCIUM 7.3 mg/dL (8.5-10.1); CARBON DIOXIDE 39.5 mmol/L (21.0-32.0); CHLORIDE - SERUM 101 mmol/L (98-107); CREATININE - SERUM 0.7 mg/dL (0.6-1.3); GLUCOSE 107 mg/dL (74-106); POTASSIUM - SERUM 3.3 mmol/L (3.5-5.1); SODIUM 142 mmol/L (136-145); UREA NITROGEN 19 mg/dL (7-18); eGFR NON AFRICAN AMERICAN > 90 mL/min (90-120)
[2019-03-15 08:41] VITALS: BP 147/69
--- NOTE | 2019-03-15 09:17 | MORECARE ---
CASE MANAGEMENT DISCHARGE SUMMARY PATIENT: MAKENZIE DESAI UNIT: [id number] ADM DATE: 03/07/19 AGE: 68 : [birth year] SEX: M ROOM/BED: D.2102 AUTHOR: СЕРГЕЙ,DOC PHYSICIAN: REFERRING PHYSICIAN: EVONNE TAPIA MD DATE OF SERVICE: 03/15/19 Discharge Plan Patient Name: MAKENZIE DESAI Facility: [facility]:[place] : 07/23/1950 Planned Disposition: Senior Care Facility Anticipated Discharge Date: Discharge Date: Expected LOS: Initial Reviewer: [id number] Initial Review Date: 03/09/2019 Generated: 03/15/19 10:17 am Comments DCP- Discharge Planning Updated by [id number]: Broderick Yo on 03/15/19 8:[address] Patient Name: MAKENZIE DESAI Encounter No: [id number] : 07-23-1950 Primary Insurance: MEDICARE PART A ONLY Anticipated DC Date: Planned Disposition: Senior Care Facility External Planned Provider: [facility], MEDICARE REHAB BED Discharge Planning Comments: CM REVIEWED CHART, THERE ARE NOT THERAPY NOTES FROM THE WEEKEND. CM FAXED UPDATE TO [facility] AT [phone]. CM WAITING ADMISSION DETERMINATION FROM [facility]. CM WAITING PT'S PARTICIPATION WITH THERAPY SERVICES. Jute Bag Clipper: Broderick Yo DCP- Discharge Planning Updated by [id number]: Broderick Yo on 03/12/19 2:[address] Patient Name: MAKENZIE DESAI Encounter No: [id number] : 07-23-1950 Primary Insurance: MEDICARE PART A ONLY Anticipated DC Date: Planned Disposition: Senior Care Facility External Planned Provider: [facility], MEDICARE REHAB BED Discharge Planning Comments: CM REVIEWED CHART NOTES, THERAPY INDICATED THAT PT HAS REFUSED THERAPY AND THERAPY HAS SIGNED OFF DUE TO REFUSALS. CM SPOKE TO DR. TAPIA AND JACEY PERKINS, OBTAINED NEW THERAPY ORDERS. CM MET WITH PT ROOM WHO ASSURED CM HE WILL PARTICIPATE WITH THERAPY AND UNDERSTANDS HE NEEDS TO FOR REHAB PLACEMENT. CM FAXED UPDATE TO [facility] AT [phone]. CM WAITING ADMISSION DETERMINATION FROM [facility]. CM WAITING PT'S PARTICIPATION WITH THERAPY SERVICES. Jute Bag Clipper: Broderick Yo DCP- Discharge Planning Updated by [id number]: Broderick Yo on 03/11/19 1:[address] Patient Name: MAKENZIE DESAI Encounter No: [id number] : 07-23-1950 Primary Insurance: MEDICARE PART A ONLY Anticipated DC Date: Planned Disposition: Senior Care Facility External Planned Provider:[facility], MEDICARE REHAB BED Discharge Planning Comments: CM RECEIVED CALL FROM CHIDI OF [facility], , WHO HAS RECEIVED REFERRAL AND THEY ARE SCREENING FOR SKILLED ADMISSION. CHIDI REPORTS PT MUST PARTICIPATE WITH THERAPY AND MUST PROVIDE HIS MEDICARE NUMBER. CM REVIEWED CHART NOTES, THERAPY INDICATED THAT PT HAS REFUSED THERAPY AND THERAPY HAS SIGNED OFF DUE TO REFUSALS. CM MET WITH PT ROOM WHO INSISTS AGAIN THAT HE DID NOT REFUSE, CM EXPLAINED THAT IF PT STATES HE WILL DO SOMTHING AND DOES NOT TAKE PHYSICAL ACTION IN EFFORT TO PARTICIPATE, HE IS INDEED REFUSING. CM EDUCATED PT THAT [facility] NEEDS HIM TO PARTICIPATE WITH ANY OFFERED THERAPY. PT ASSURED CM HE WILL PARTICIPATE WITH THERAPY. CM EXPLAINED THAT PT WILL NEED MEDICARE NUMBER. PT ASKED FOR MEDICARE CONTACT PHONE NUMBER HE DOES NOT HAVE A MEDICARE CARD AND NEVER RECEIVED IT BUT INSISTED HE DOES HAVE MEDICARE. PT LATER CALLED CM AND PROVIDED MEDICARE [id number], [id number]. CM FAXED THIS NUMBER WITH UPDATE TO [facility] AT [phone]. CM WAITING ADMISSION DETERMINATION FROM [facility]. CM WAITING PT'S PARTICIPATION WITH THERAPY SERVICES. Jute Bag Clipper: Broderick Yo DCP- Discharge Planning Updated by [id number]: Broderick Yo on 03/09/19 3:[address] Patient Name: MAKENZIE DESAI Admission Status: ER Accout number: [id number] Admission Date: 03-07-2019 : 07-23-1950 Admission Diagnosis: Attending: EVONNE TAPIA Current LOS: 2 Anticipated DC Date: Planned Disposition: Senior Care Facility Primary Insurance: MEDICARE PART A ONLY PLANNED EXTERNAL PROVIDER: [facility], MEDICARE REHAB BED Discharge Planning Comments: CM MET WITH PT IN ROOM TO DISCUSS DISCHARGE PLANNING AND NEEDS. PT REPORTS LIVING AT HOME INDEPENDENTLY WITH A FRIEND WHO WAS SPITTING THE RENT WITH HIM AT [facility]. THE FRIEND LEFT AND STOLE A "BUNCH OF STUFF" FROM PT. PT STATES HE WILL HAVE TO WORK OUT A NEW LIVING ARRANGEMENT WHEN HE IS ABLE TO WALK AND TAKE CARE OF HIMSELF AGAIN. PT HAS POWER WHEELCHAIR AND WALKER FROM [facility]. PT HAS NO OUTSIDE SERVICES ASSISTING IN THE HOME. CM DISCUSSED AVAILABILITY OF HOME HEALTH, REHAB SERVICES AND MEDICAL EQUIPMENT. PT STATES HE NEEDS REHAB AND WOULD LIKE TO RETURN TO [facility] OR HAVE REHAB AT THE [facility] IF DECLINED BY [facility]. CHOICE SIGNED. CM REVIEWED CHART NOTES, THERAPY INDICATED THAT PT HAS REFUSED FOR THE FIRST TWO OFFERED SESSIONS. CM SPOKE TO PT IN ROOM WHO INSISTS THAT HE DID NOT REFUSE, THAT THE THERAPIST ASKED PT TO STAND UP BY THE BED AND PT STATED HE COULD NOT. PT ENCOURAGED TO PARTICIPATE WITH THERAPY EACH TIME IT IS OFFERED AND EXPLAINED IF PT IS ASKING CM TO GET HIM INTO REHAB, PT NEEDS TO DO HIS PART AND PARTICIPATE EACH TIME WITH THERAPY. PT STATES UNDERSTANDING. CM FAXED REHAB REFERRAL TO [facility] AT [phone]. CM TO FOLLOW UP WITH JUAN OF [facility] AT [phone], AFTER [place], TO MAKE HER AWARE OF REHAB REFERRAL. CM WAITING PT'S PARTICIPATION WITH THERAPY SERVICES. Jute Bag Clipper: Broderick Yo DCPIA - Discharge Planning Initial Assessment Updated by [id number]: Broderick Yo on 03/09/19 4:34 pm * Is the patient Alert and Oriented? Yes * How many steps to enter\\exit or inside your home? NONE * PCP DR. BARRERA * [facility]acy [facility] [place] OR [facility], IN [place] * Preadmission Environment Home with Family * ADLs Independent * Equipment Cane Power Chair or Electric Scooter * Other Equipment [facility] IS PROVIDER OF EQUIPMENT * List name and contact numbers for known caregivers / representatives who currently or will assist patient after discharge: LILIAM DESAI, EX , * Verbal permission to speak to the caregivers and representatives has been obtained from the patient. N/A * Community resources currently utilized None * Please name any agencies selected above. NONE * Additional services required to return to the preadmission environment? Yes * Can the patient safely return to the preadmission environment? Yes * Has this patient been hospitalized within the prior 30 days at any hospital? No Coverage Notice Reviewer: [id number] - Broderick Yo Notice Issued Date-Time: 03/09/2019 16:05 Notice Type: Patient Choice Letter Notice Delivered To: Patient Relationship to Patient: Outside Property Agent Name: Delivery Method: HAND - Hand Delivered Colette Days: Prior Verbal Notification: Recipient Understood Notice: Yes Recipient Signature: Yes Med Rec Note Co-signed by Attending: Coverage Notice Comment: [facility] Last DP export: 03/12/19 2:55 Patient Name: MAKENZIE DESAI Page 28028 at 0917 All edits/amendments must be made on the electronic document DICTATION DATE: 03/15/19916 BOBBIN STRIPPER: OSMEL 03/15/19916 RPT#: [id number] DC DATE: STATUS: ADM IN [facility] [address] [place] [address] END OF REPORT
[2019-03-15 13:18] VITALS: BP 106/57
--- NOTE | 2019-03-15 13:56 | MORECARE ---
CASE MANAGEMENT DISCHARGE SUMMARY PATIENT: MAKENZIE DESAI UNIT: [id number] ADM DATE: 03/07/19 AGE: 68 : [birth year] SEX: M ROOM/BED: D.2102 AUTHOR: СЕРГЕЙ,DOC PHYSICIAN: REFERRING PHYSICIAN: EVONNE TAPIA MD DATE OF SERVICE: 03/15/19 Discharge Plan Patient Name: MAKENZIE DESAI Facility: [facility]:[place] : 07/23/1950 Planned Disposition: Long-Term Facility Anticipated Discharge Date: Discharge Date: Expected LOS: Initial Reviewer: [id number] Initial Review Date: 03/09/2019 Generated: 03/15/19 2:55 pm Comments DCP- Discharge Planning Updated by [id number]: Broderick Yo on 03/15/19 8:[address] Patient Name: MAKENZIE DESAI Encounter No: [id number] : 07-23-1950 Primary Insurance: MEDICARE PART A ONLY Anticipated DC Date: Planned Disposition: Long-Term Facility External Planned Provider: [facility], MEDICARE REHAB BED Discharge Planning Comments: CM REVIEWED CHART, THERE ARE NOT THERAPY NOTES FROM THE WEEKEND. CM FAXED UPDATE TO [facility] AT [phone]. CM WAITING ADMISSION DETERMINATION FROM [facility]. CM WAITING PT'S PARTICIPATION WITH THERAPY SERVICES. Wound Care Technician: Broderick Yo DCP- Discharge Planning Updated by [id number]: Broderick Yo on 03/12/19 2:[address] Patient Name: MAKENZIE DESAI Encounter No: [id number] : 07-23-1950 Primary Insurance: MEDICARE PART A ONLY Anticipated DC Date: Planned Disposition: Long-Term Facility External Planned Provider: [facility], MEDICARE REHAB BED Discharge Planning Comments: CM REVIEWED CHART NOTES, THERAPY INDICATED THAT PT HAS REFUSED THERAPY AND THERAPY HAS SIGNED OFF DUE TO REFUSALS. CM SPOKE TO DR. TAPIA AND JACEY PERKINS, OBTAINED NEW THERAPY ORDERS. CM MET WITH PT ROOM WHO ASSURED CM HE WILL PARTICIPATE WITH THERAPY AND UNDERSTANDS HE NEEDS TO FOR REHAB PLACEMENT. CM FAXED UPDATE TO [facility] AT [phone]. CM WAITING ADMISSION DETERMINATION FROM [facility]. CM WAITING PT'S PARTICIPATION WITH THERAPY SERVICES. Wound Care Technician: Broderick Yo DCP- Discharge Planning Updated by [id number]: Broderick Yo on 03/11/19 1:[address] Patient Name: MAKENZIE DESAI Encounter No: [id number] : 07-23-1950 Primary Insurance: MEDICARE PART A ONLY Anticipated DC Date: Planned Disposition: Long-Term Facility External Planned Provider:[facility], MEDICARE REHAB BED Discharge Planning Comments: CM RECEIVED CALL FROM CHIDI OF [facility], , WHO HAS RECEIVED REFERRAL AND THEY ARE SCREENING FOR SKILLED ADMISSION. CH[facility]I REPORTS PT MUST PARTICIPATE WITH THERAPY AND MUST PROVIDE HIS MEDICARE NUMBER. CM REVIEWED CHART NOTES, THERAPY INDICATED THAT PT HAS REFUSED THERAPY AND THERAPY HAS SIGNED OFF DUE TO REFUSALS. CM MET WITH PT ROOM WHO INSISTS AGAIN THAT HE DID NOT REFUSE, CM EXPLAINED THAT IF PT STATES HE WILL DO SOMTHING AND DOES NOT TAKE PHYSICAL ACTION IN EFFORT TO PARTICIPATE, HE IS INDEED REFUSING. CM EDUCATED PT THAT [facility] NEEDS HIM TO PARTICIPATE WITH ANY OFFERED THERAPY. PT ASSURED CM HE WILL PARTICIPATE WITH THERAPY. CM EXPLAINED THAT PT WILL NEED MEDICARE NUMBER. PT ASKED FOR MEDICARE CONTACT PHONE NUMBER HE DOES NOT HAVE A MEDICARE CARD AND NEVER RECEIVED IT BUT INSISTED HE DOES HAVE MEDICARE. PT LATER CALLED CM AND PROVIDED MEDICARE [id number], [id number]. CM FAXED THIS NUMBER WITH UPDATE TO [facility] AT [phone]. CM WAITING ADMISSION DETERMINATION FROM [facility]. CM WAITING PT'S PARTICIPATION WITH THERAPY SERVICES. Wound Care Technician: Broderick Yo DCP- Discharge Planning Updated by [id number]: Broderick Yo on 03/09/19 3:[address] Patient Name: MAKENZIE DESAI Admission Status: ER Accout number: [id number] Admission Date: 03-07-2019 : 07-23-1950 Admission Diagnosis: Attending: EVONNE TAPIA Current LOS: 2 Anticipated DC Date: Planned Disposition: Long-Term Facility Primary Insurance: MEDICARE PART A ONLY PLANNED EXTERNAL PROVIDER: [facility], MEDICARE REHAB BED Discharge Planning Comments: CM MET WITH PT IN ROOM TO DISCUSS DISCHARGE PLANNING AND NEEDS. PT REPORTS LIVING AT HOME INDEPENDENTLY WITH A FRIEND WHO WAS SPITTING THE RENT WITH HIM AT [facility]. THE FRIEND LEFT AND STOLE A "BUNCH OF STUFF" FROM PT. PT STATES HE WILL HAVE TO WORK OUT A NEW LIVING ARRANGEMENT WHEN HE IS ABLE TO WALK AND TAKE CARE OF HIMSELF AGAIN. PT HAS POWER WHEELCHAIR AND WALKER FROM [facility]. PT HAS NO OUTSIDE SERVICES ASSISTING IN THE HOME. CM DISCUSSED AVAILABILITY OF HOME HEALTH, REHAB SERVICES AND MEDICAL EQUIPMENT. PT STATES HE NEEDS REHAB AND WOULD LIKE TO RETURN TO [facility] OR HAVE REHAB AT THE [facility] IF DECLINED BY [facility]. CHOICE SIGNED. CM REVIEWED CHART NOTES, THERAPY INDICATED THAT PT HAS REFUSED FOR THE FIRST TWO OFFERED SESSIONS. CM SPOKE TO PT IN ROOM WHO INSISTS THAT HE DID NOT REFUSE, THAT THE THERAPIST ASKED PT TO STAND UP BY THE BED AND PT STATED HE COULD NOT. PT ENCOURAGED TO PARTICIPATE WITH THERAPY EACH TIME IT IS OFFERED AND EXPLAINED IF PT IS ASKING CM TO GET HIM INTO REHAB, PT NEEDS TO DO HIS PART AND PARTICIPATE EACH TIME WITH THERAPY. PT STATES UNDERSTANDING. CM FAXED REHAB REFERRAL TO [facility] AT [phone]. CM TO FOLLOW UP WITH JUAN OF [facility] AT [phone], AFTER [facility], TO MAKE HER AWARE OF REHAB REFERRAL. CM WAITING PT'S PARTICIPATION WITH THERAPY SERVICES. Wound Care Technician: Broderick Yo DCPIA - Discharge Planning Initial Assessment Updated by [id number]: Broderick Yo on 03/09/19 4:34 pm * Is the patient Alert and Oriented? Yes * How many steps to enter\\exit or inside your home? NONE * PCP DR. BARRERA * [facility]acy [facility] [place] [facility], IN [place] * Preadmission Environment Home with Family * ADLs Independent * Equipment Cane Power Chair or Electric Scooter * Other Equipment CO IS PROVIDER OF EQUIPMENT * List name and contact numbers for known caregivers / representatives who currently or will assist patient after discharge: LILIAM DESAI, EX , * Verbal permission to speak to the caregivers and representatives has been obtained from the patient. N/A * Community resources currently utilized None * Please name any agencies selected above. NONE * Additional services required to return to the preadmission environment? Yes * Can the patient safely return to the preadmission environment? Yes * Has this patient been hospitalized within the prior 30 days at any hospital? No External Providers External Provider: [facility] Next Contact Date: 03/15/2019 Service Request Date: Service Type: Resolution: Reviewer: Comments: Coverage Notice Reviewer: [id number] - Broderick Yo Notice Issued Date-Time: 03/09/2019 16:05 Notice Type: Patient Choice Letter Notice Delivered To: Patient Relationship to Patient: Drycleaner Name: Delivery Method: HAND - Hand Delivered Colette Days: Prior Verbal Notification: Recipient Understood Notice: Yes Recipient Signature: Yes Med Rec Note Co-signed by Attending: Coverage Notice Comment: [facility] [place] [facility] Last DP export: 03/15/19 8:17 Patient Name: MAKENZIE DESAI Page 39987 at 1356 All edits/amendments must be made on the electronic document DICTATION DATE: 03/15/19 1356 CLOTH FINISHING RANGE BACK TENDER: OSMEL 03/15/19 1355 RPT#: [id number] DC DATE: STATUS: ADM IN [facility] [address] [place] [address] END OF REPORT
--- NOTE | 2019-03-15 14:07 | MORECARE ---
CASE MANAGEMENT DISCHARGE SUMMARY PATIENT: MAKENZIE DESAI UNIT: [id number] ADM DATE: 03/07/19 AGE: 68 : [birth year] SEX: M ROOM/BED: D.2102 AUTHOR: СЕРГЕЙ,DOC PHYSICIAN: REFERRING PHYSICIAN: EVONNE TAPIA MD DATE OF SERVICE: 03/15/19 Discharge Plan Patient Name: MAKENZIE DESAI Facility: [facility]:[place] : 07/23/1950 Planned Disposition: Fpc Facility Anticipated Discharge Date: Discharge Date: Expected LOS: Initial Reviewer: [id number] Initial Review Date: 03/09/2019 Generated: 03/15/19 3:07 pm Comments DCP- Discharge Planning Updated by [id number]: Broderick Yo on 03/15/19 8:[address] Patient Name: MAKENZIE DESAI Encounter No: [id number] : 07-23-1950 Primary Insurance: MEDICARE PART A ONLY Anticipated DC Date: Planned Disposition: Fpc Facility External Planned Provider: [facility], MEDICARE REHAB BED Discharge Planning Comments: CM REVIEWED CHART, THERE ARE NOT THERAPY NOTES FROM THE WEEKEND. CM FAXED UPDATE TO [facility] AT [phone]. CM WAITING ADMISSION DETERMINATION FROM [facility]. CM WAITING PT'S PARTICIPATION WITH THERAPY SERVICES. Crawler Dragline Operator: Broderick Yo DCP- Discharge Planning Updated by [id number]: Broderick Yo on 03/12/19 2:[address] Patient Name: MAKENZIE DESAI Encounter No: [id number] : 07-23-1950 Primary Insurance: MEDICARE PART A ONLY Anticipated DC Date: Planned Disposition: Fpc Facility External Planned Provider: [facility], MEDICARE REHAB BED Discharge Planning Comments: CM REVIEWED CHART NOTES, THERAPY INDICATED THAT PT HAS REFUSED THERAPY AND THERAPY HAS SIGNED OFF DUE TO REFUSALS. CM SPOKE TO DR. TAPIA AND JACEY PERKINS, OBTAINED NEW THERAPY ORDERS. CM MET WITH PT ROOM WHO ASSURED CM HE WILL PARTICIPATE WITH THERAPY AND UNDERSTANDS HE NEEDS TO FOR REHAB PLACEMENT. CM FAXED UPDATE TO [facility] AT [phone]. CM WAITING ADMISSION DETERMINATION FROM [facility]. CM WAITING PT'S PARTICIPATION WITH THERAPY SERVICES. Crawler Dragline Operator: Broderick Yo DCP- Discharge Planning Updated by [id number]: Broderick Yo on 03/11/19 1:[address] Patient Name: MAKENZIE DESAI Encounter No: [id number] : 07-23-1950 Primary Insurance: MEDICARE PART A ONLY Anticipated DC Date: Planned Disposition: Fpc Facility External Planned Provider:[facility], MEDICARE REHAB BED Discharge Planning Comments: CM RECEIVED CALL FROM CHIDI OF [facility], , WHO HAS RECEIVED REFERRAL AND THEY ARE SCREENING FOR SKILLED ADMISSION. [facility] REPORTS PT MUST PARTICIPATE WITH THERAPY AND MUST PROVIDE HIS MEDICARE NUMBER. CM REVIEWED CHART NOTES, THERAPY INDICATED THAT PT HAS REFUSED THERAPY AND THERAPY HAS SIGNED OFF DUE TO REFUSALS. CM MET WITH PT ROOM WHO INSISTS AGAIN THAT HE DID NOT REFUSE, CM EXPLAINED THAT IF PT STATES HE WILL DO SOMTHING AND DOES NOT TAKE PHYSICAL ACTION IN EFFORT TO PARTICIPATE, HE IS INDEED REFUSING. CM EDUCATED PT THAT [facility] NEEDS HIM TO PARTICIPATE WITH ANY OFFERED THERAPY. PT ASSURED CM HE WILL PARTICIPATE WITH THERAPY. CM EXPLAINED THAT PT WILL NEED MEDICARE NUMBER. PT ASKED FOR MEDICARE CONTACT PHONE NUMBER HE DOES NOT HAVE A MEDICARE CARD AND NEVER RECEIVED IT BUT INSISTED HE DOES HAVE MEDICARE. PT LATER CALLED CM AND PROVIDED MEDICARE [id number], [id number]. CM FAXED THIS NUMBER WITH UPDATE TO [facility] AT [phone]. CM WAITING ADMISSION DETERMINATION FROM [facility]. CM WAITING PT'S PARTICIPATION WITH THERAPY SERVICES. Crawler Dragline Operator: Broderick Yo DCP- Discharge Planning Updated by [id number]: Broderick Yo on 03/09/19 3:[address] Patient Name: MAKENZIE DESAI Admission Status: ER Accout number: [id number] Admission Date: 03-07-2019 : 07-23-1950 Admission Diagnosis: Attending: EVONNE TAPIA Current LOS: 2 Anticipated DC Date: Planned Disposition: Fpc Facility Primary Insurance: MEDICARE PART A ONLY PLANNED EXTERNAL PROVIDER: [facility], MEDICARE REHAB BED Discharge Planning Comments: CM MET WITH PT IN ROOM TO DISCUSS DISCHARGE PLANNING AND NEEDS. PT REPORTS LIVING AT HOME INDEPENDENTLY WITH A FRIEND WHO WAS SPITTING THE RENT WITH HIM AT [facility]. THE FRIEND LEFT AND STOLE A "BUNCH OF STUFF" FROM PT. PT STATES HE WILL HAVE TO WORK OUT A NEW LIVING ARRANGEMENT WHEN HE IS ABLE TO WALK AND TAKE CARE OF HIMSELF AGAIN. PT HAS POWER WHEELCHAIR AND WALKER FROM [facility]. PT HAS NO OUTSIDE SERVICES ASSISTING IN THE HOME. CM DISCUSSED AVAILABILITY OF HOME HEALTH, REHAB SERVICES AND MEDICAL EQUIPMENT. PT STATES HE NEEDS REHAB AND WOULD LIKE TO RETURN TO [facility] OR HAVE REHAB AT THE [facility] IF DECLINED BY [facility]. CHOICE SIGNED. CM REVIEWED CHART NOTES, THERAPY INDICATED THAT PT HAS REFUSED FOR THE FIRST TWO OFFERED SESSIONS. CM SPOKE TO PT IN ROOM WHO INSISTS THAT HE DID NOT REFUSE, THAT THE THERAPIST ASKED PT TO STAND UP BY THE BED AND PT STATED HE COULD NOT. PT ENCOURAGED TO PARTICIPATE WITH THERAPY EACH TIME IT IS OFFERED AND EXPLAINED IF PT IS ASKING CM TO GET HIM INTO REHAB, PT NEEDS TO DO HIS PART AND PARTICIPATE EACH TIME WITH THERAPY. PT STATES UNDERSTANDING. CM FAXED REHAB REFERRAL TO [facility] AT [phone]. CM TO FOLLOW UP WITH JUAN OF [facility] AT [phone], AFTER [facility], TO MAKE HER AWARE OF REHAB REFERRAL. CM WAITING PT'S PARTICIPATION WITH THERAPY SERVICES. Crawler Dragline Operator: Broderick Yo DCPIA - Discharge Planning Initial Assessment Updated by [id number]: Broderick Yo on 03/09/19 4:34 pm * Is the patient Alert and Oriented? Yes * How many steps to enter\\exit or inside your home? NONE * PCP DR. BARRERA * [facility] [place] [facility], IN [place] * Preadmission Environment Home with Family * ADLs Independent * Equipment Cane Power Chair or Electric Scooter * Other Equipment [facility] IS PROVIDER OF EQUIPMENT * List name and contact numbers for known caregivers / representatives who currently or will assist patient after discharge: LILIAM DESAI, EX , * Verbal permission to speak to the caregivers and representatives has been obtained from the patient. N/A * Community resources currently utilized None * Please name any agencies selected above. NONE * Additional services required to return to the preadmission environment? Yes * Can the patient safely return to the preadmission environment? Yes * Has this patient been hospitalized within the prior 30 days at any hospital? No Coverage Notice Reviewer: [id number] - Broderick Yo Notice Issued Date-Time: 03/09/2019 16:05 Notice Type: Patient Choice Letter Notice Delivered To: Patient Relationship to Patient: Manager Of Community Relations Name: Delivery Method: HAND - Hand Delivered Colette Days: Prior Verbal Notification: Recipient Understood Notice: Yes Recipient Signature: Yes Med Rec Note Co-signed by Attending: Coverage Notice Comment: [facility] Last DP export: 03/15/19 12:56 Patient Name: MAKENZIE DESAI Page [phone] at 1407 All edits/amendments must be made on the electronic document DICTATION DATE: 03/15/191405 SENIOR GL ACCOUNTANT: OSMEL 03/15/191405 RPT#: [id number] DC DATE: STATUS: ADM IN [facility] [address] [place] [address] END OF REPORT
--- NOTE | 2019-03-15 14:24 | MORECARE ---
CASE MANAGEMENT DISCHARGE SUMMARY PATIENT: MAKENZIE DESAI UNIT: [id number] ADM DATE: 03/07/19 AGE: 68 : [birth year] SEX: M ROOM/BED: D.2102 AUTHOR: СЕРГЕЙ,DOC PHYSICIAN: REFERRING PHYSICIAN: EVONNE TAPIA MD DATE OF SERVICE: 03/15/19 Discharge Plan Patient Name: MAKENZIE DESAI Facility: [facility]:[place] : 07/23/1950 Planned Disposition: Detention Facility Anticipated Discharge Date: Discharge Date: Expected LOS: Initial Reviewer: [id number] Initial Review Date: 03/09/2019 Generated: 03/15/19 3:23 pm Comments DCP- Discharge Planning Updated by [id number]: Broderick Gonzalez on 03/15/19 1:[address] Patient Name: MKAENZIE DESAI Encounter No: [id number] : 07-23-1950 Primary Insurance: MEDICARE PART A ONLY Anticipated DC Date: Planned Disposition: Detention Facility External Planned Provider: [facility], MEDICARE REHAB BED DCP follow-up note: CM RECEIVED CALL FROM SYD OF [facility] WHO ADVISED THEY CANNOT MEET PT'S NEEDS. CM NOTIFIED PT IN ROOM WHO ASKED CM TO CALL [facility] AND ASK THEM TO HANG ON TO HIS WHEELCHAIR HE PAID SOMEONE TO BRING IT THERE THINKING THEY WERE ACCEPTING HIM. PT WILL PAY SOMEONE TO PICK IT UP. CM CALLED AND NOTIFIED SYD WHO INFORMED CM THAT SHE HAS NOT SEEN PT'S WHEELCHAIR AND PT NEEDS TO FOLLOW UP WITH WHOMEVER HE PAID FOR DELIVERY. CM NOTIFIED PT. CM ENCOURAGED PT TO CONTINUE HIS COOPERATION WITH THERAPY SERVICES, PT STATES HE WILL. CM FAXED REFERRAL TO THE [facility], . CM NOTIFIED MARICRUZ OF [facility] OF REFERRAL. CM WAITING ADMISSION DETERMINATION FROM [facility]. BRODERICK GONZALEZ CASE MANAGEMENT DCP- Discharge Planning Updated by [id number]: Broderick Gonzalez on 03/15/19 8:[address] Patient Name: MAKENZIE DESAI Encounter No: [id number] : 07-23-1950 Primary Insurance: MEDICARE PART A ONLY Anticipated DC Date: Planned Disposition: Detention Facility External Planned Provider: [facility], MEDICARE REHAB BED Discharge Planning Comments: CM REVIEWED CHART, THERE ARE NOT THERAPY NOTES FROM THE WEEKEND. CM FAXED UPDATE TO [facility] AT [phone]. CM WAITING ADMISSION DETERMINATION FROM [facility]. CM WAITING PT'S PARTICIPATION WITH THERAPY SERVICES. Crab Butcher: Broderick Gonzalez DCP- Discharge Planning Updated by [id number]: Broderick Gonzalez on 03/12/19 2:[address] Patient Name: MAKENZIE DESAI Encounter No: [id number] : 07-23-1950 Primary Insurance: MEDICARE PART A ONLY Anticipated DC Date: Planned Disposition: Detention Facility External Planned Provider: [facility], MEDICARE REHAB BED Discharge Planning Comments: CM REVIEWED CHART NOTES, THERAPY INDICATED THAT PT HAS REFUSED THERAPY AND THERAPY HAS SIGNED OFF DUE TO REFUSALS. CM SPOKE TO DR. TAPIA AND JACEY PERKINS, OBTAINED NEW THERAPY ORDERS. CM MET WITH PT ROOM WHO ASSURED CM HE WILL PARTICIPATE WITH THERAPY AND UNDERSTANDS HE NEEDS TO FOR REHAB PLACEMENT. CM FAXED UPDATE TO [facility] AT [phone]. CM WAITING ADMISSION DETERMINATION FROM [facility]. CM WAITING PT'S PARTICIPATION WITH THERAPY SERVICES. Crab Butcher: Broderick Gonzalez DCP- Discharge Planning Updated by [id number]: Broderick Gonzalez on 03/11/19 1:[address] Patient Name: MAKENZIE DESAI Encounter No: [id number] : 07-23-1950 Primary Insurance: MEDICARE PART A ONLY Anticipated DC Date: Planned Disposition: Detention Facility External Planned Provider:[facility], MEDICARE REHAB BED Discharge Planning Comments: CM RECEIVED CALL FROM CHIDI OF [facility], , WHO HAS RECEIVED REFERRAL AND THEY ARE SCREENING FOR SKILLED ADMISSION. CH[facility] REPORTS PT MUST PARTICIPATE WITH THERAPY AND MUST PROVIDE HIS MEDICARE NUMBER. DEXTER REVIEWED CHART NOTES, THERAPY INDICATED THAT PT HAS REFUSED THERAPY AND THERAPY HAS SIGNED OFF DUE TO REFUSALS. CM MET WITH PT ROOM WHO INSISTS AGAIN THAT HE DID NOT REFUSE, CM EXPLAINED THAT IF PT STATES HE WILL DO SOMTHING AND DOES NOT TAKE PHYSICAL ACTION IN EFFORT TO PARTICIPATE, HE IS INDEED REFUSING. CM EDUCATED PT THAT [facility] NEEDS HIM TO PARTICIPATE WITH ANY OFFERED THERAPY. PT ASSURED CM HE WILL PARTICIPATE WITH THERAPY. CM EXPLAINED THAT PT WILL NEED MEDICARE NUMBER. PT ASKED FOR MEDICARE CONTACT PHONE NUMBER HE DOES NOT HAVE A MEDICARE CARD AND NEVER RECEIVED IT BUT INSISTED HE DOES HAVE MEDICARE. PT LATER CALLED CM AND PROVIDED MEDICARE [id number], [id number]. CM FAXED THIS NUMBER WITH UPDATE TO [facility] AT [phone]. CM WAITING ADMISSION DETERMINATION FROM [facility]. CM WAITING PT'S PARTICIPATION WITH THERAPY SERVICES. Crab Butcher: Broderick Gonzalez DCP- Discharge Planning Updated by [id number]: Broderick Gonzalez on 03/09/19 3:[address] Patient Name: MAEKNZIE DESAI Admission Status: ER Accout number: [id number] Admission Date: 03-07-2019 : 07-23-1950 Admission Diagnosis: Attending: EVONNE TAPIA Current LOS: 2 Anticipated DC Date: Planned Disposition: Detention Facility Primary Insurance: MEDICARE PART A ONLY PLANNED EXTERNAL PROVIDER: [facility], MEDICARE REHAB BED Discharge Planning Comments: CM MET WITH PT IN ROOM TO DISCUSS DISCHARGE PLANNING AND NEEDS. PT REPORTS LIVING AT HOME INDEPENDENTLY WITH A FRIEND WHO WAS SPITTING THE RENT WITH HIM AT [facility]. THE FRIEND LEFT AND STOLE A "BUNCH OF STUFF" FROM PT. PT STATES HE WILL HAVE TO WORK OUT A NEW LIVING ARRANGEMENT WHEN HE IS ABLE TO WALK AND TAKE CARE OF HIMSELF AGAIN. PT HAS POWER WHEELCHAIR AND WALKER FROM [facility]. PT HAS NO OUTSIDE SERVICES ASSISTING IN THE HOME. CM DISCUSSED AVAILABILITY OF HOME HEALTH, REHAB SERVICES AND MEDICAL EQUIPMENT. PT STATES HE NEEDS REHAB AND WOULD LIKE TO RETURN TO [facility] OR HAVE REHAB AT [facility] IF DECLINED BY [facility]. CHOICE SIGNED. CM REVIEWED CHART NOTES, THERAPY INDICATED THAT PT HAS REFUSED FOR THE FIRST TWO OFFERED SESSIONS. CM SPOKE TO PT IN ROOM WHO INSISTS THAT HE DID NOT REFUSE, THAT THE THERAPIST ASKED PT TO STAND UP BY THE BED AND PT STATED HE COULD NOT. PT ENCOURAGED TO PARTICIPATE WITH THERAPY EACH TIME IT IS OFFERED AND EXPLAINED IF PT IS ASKING CM TO GET HIM INTO REHAB, PT NEEDS TO DO HIS PART AND PARTICIPATE EACH TIME WITH THERAPY. PT STATES UNDERSTANDING. CM FAXED REHAB REFERRAL TO [facility] AT [phone]. CM TO FOLLOW UP WITH JUAN OF [facility] AT [phone], AFTER [place], TO MAKE HER AWARE OF REHAB REFERRAL. CM WAITING PT'S PARTICIPATION WITH THERAPY SERVICES. Crab Butcher: Broderick Gonzalez DCPIA - Discharge Planning Initial Assessment Updated by [id number]: Broderick Gonzalez on 03/09/19 4:34 pm * Is the patient Alert and Oriented? Yes * How many steps to enter\\exit or inside your home? NONE * PCP DR. BARRERA * [facility]acy [facility] [place] OR [facility], IN [place] * Preadmission Environment Home with Family * ADLs Independent * Equipment Cane Power Chair or Electric Scooter * Other Equipment [facility] IS PROVIDER OF EQUIPMENT * List name and contact numbers for known caregivers / representatives who currently or will assist patient after discharge: LILIAM DESAI, EX , * Verbal permission to speak to the caregivers and representatives has been obtained from the patient. N/A * Community resources currently utilized None * Please name any agencies selected above. NONE * Additional services required to return to the preadmission environment? Yes * Can the patient safely return to the preadmission environment? Yes * Has this patient been hospitalized within the prior 30 days at any hospital? No Coverage Notice Reviewer: [id number] - Broderick Gonzalez Notice Issued Date-Time: 03/09/2019 16:05 Notice Type: Patient Choice Letter Notice Delivered To: Patient Relationship to Patient: Tape Deck Installer Name: Delivery Method: HAND - Hand Delivered Colette Days: Prior Verbal Notification: Recipient Understood Notice: Yes Recipient Signature: Yes Med Rec Note Co-signed by Attending: Coverage Notice Comment: [facility] [place] Last DP export: 03/15/19 1:07 Patient Name: MAKENZIE DESAI Page 14492 at 1424 All edits/amendments must be made on the electronic document DICTATION DATE: 03/15/19 142 COUNTER PERSON: OSMEL 03/15/19 142 RPT#: [id number] DC DATE: STATUS: ADM IN [facility] [address] [place] [address] END OF REPORT
--- NOTE | 2019-03-15 16:38 | MORECARE ---
CASE MANAGEMENT DISCHARGE SUMMARY PATIENT: MAKENZIE DESAI UNIT: [id number] ADM DATE: 03/07/19 AGE: 68 : [birth year] SEX: M ROOM/BED: D.2102 AUTHOR: СЕРГЕЙ,DOC PHYSICIAN: REFERRING PHYSICIAN: EVONNE TAPIA MD DATE OF SERVICE: 03/15/19 Discharge Plan Patient Name: MAKENZIE DESAI Facility: [facility]:[place] : 07/23/1950 Planned Disposition: Fpc Facility Anticipated Discharge Date: Discharge Date: Expected LOS: Initial Reviewer: [id number] Initial Review Date: 03/09/2019 Generated: 03/15/19 5:38 pm Comments DCP- Discharge Planning Updated by [id number]: Broderick Gonzalez on 03/15/19 1:[address] Patient Name: MAKENZIE DESAI Encounter No: [id number] : 07-23-1950 Primary Insurance: MEDICARE PART A ONLY Anticipated DC Date: Planned Disposition: Fpc Facility External Planned Provider: [facility], MEDICARE REHAB BED DCP follow-up note: CM RECEIVED CALL FROM SYD OF [facility] WHO ADVISED THEY CANNOT MEET PT'S NEEDS. CM NOTIFIED PT IN ROOM WHO ASKED CM TO CALL [facility] AND ASK THEM TO HANG ON TO HIS WHEELCHAIR HE PAID SOMEONE TO BRING IT THERE THINKING THEY WERE ACCEPTING HIM. PT WILL PAY SOMEONE TO PICK IT UP. CM CALLED AND NOTIFIED SYD WHO INFORMED CM THAT SHE HAS NOT SEEN PT'S WHEELCHAIR AND PT NEEDS TO FOLLOW UP WITH WHOMEVER HE PAID FOR DELIVERY. CM NOTIFIED PT. CM ENCOURAGED PT TO CONTINUE HIS COOPERATION WITH THERAPY SERVICES, PT STATES HE WILL. CM FAXED REFERRAL TO [facility], . CM NOTIFIED MARICRUZ OF [facility] OF REFERRAL. CM WAITING ADMISSION DETERMINATION FROM [facility]. BRODERICK GONZALEZ CASE MANAGEMENT DCP- Discharge Planning Updated by [id number]: Broderick Gonzalez on 03/15/19 8:[address] Patient Name: MAKENZIE DESAI Encounter No: [id number] : 07-23-1950 Primary Insurance: MEDICARE PART A ONLY Anticipated DC Date: Planned Disposition: Fpc Facility External Planned Provider: [facility], MEDICARE REHAB BED Discharge Planning Comments: CM REVIEWED CHART, THERE ARE NOT THERAPY NOTES FROM THE WEEKEND. CM FAXED UPDATE TO [facility] AT [phone]. CM WAITING ADMISSION DETERMINATION FROM [facility]. CM WAITING PT'S PARTICIPATION WITH THERAPY SERVICES. Site Safety Coordinator: Broderick Gonzalez DCP- Discharge Planning Updated by [id number]: Broderick Gonzalez on 03/12/19 2:[address] Patient Name: MAKENZIE DESAI Encounter No: [id number] : 07-23-1950 Primary Insurance: MEDICARE PART A ONLY Anticipated DC Date: Planned Disposition: Fpc Facility External Planned Provider: [facility], MEDICARE REHAB BED Discharge Planning Comments: CM REVIEWED CHART NOTES, THERAPY INDICATED THAT PT HAS REFUSED THERAPY AND THERAPY HAS SIGNED OFF DUE TO REFUSALS. CM SPOKE TO DR. TAPIA AND JACEY PERKINS, OBTAINED NEW THERAPY ORDERS. CM MET WITH PT ROOM WHO ASSURED CM HE WILL PARTICIPATE WITH THERAPY AND UNDERSTANDS HE NEEDS TO FOR REHAB PLACEMENT. CM FAXED UPDATE TO [facility] AT [phone]. CM WAITING ADMISSION DETERMINATION FROM [facility]. CM WAITING PT'S PARTICIPATION WITH THERAPY SERVICES. Site Safety Coordinator: Broderick Gonzalez DCP- Discharge Planning Updated by [id number]: Broderick Gonzalez on 03/11/19 1:[address] Patient Name: MAKENZIE DESAI Encounter No: [id number] : 07-23-1950 Primary Insurance: MEDICARE PART A ONLY Anticipated DC Date: Planned Disposition: Fpc Facility External Planned Provider:[facility], MEDICARE REHAB BED Discharge Planning Comments: CM RECEIVED CALL FROM CHIDI OF [facility], , WHO HAS RECEIVED REFERRAL AND THEY ARE SCREENING FOR SKILLED ADMISSION. CH[facility] REPORTS PT MUST PARTICIPATE WITH THERAPY AND MUST PROVIDE HIS MEDICARE NUMBER. DEXTER REVIEWED CHART NOTES, THERAPY INDICATED THAT PT HAS REFUSED THERAPY AND THERAPY HAS SIGNED OFF DUE TO REFUSALS. CM MET WITH PT ROOM WHO INSISTS AGAIN THAT HE DID NOT REFUSE, CM EXPLAINED THAT IF PT STATES HE WILL DO SOMTHING AND DOES NOT TAKE PHYSICAL ACTION IN EFFORT TO PARTICIPATE, HE IS INDEED REFUSING. CM EDUCATED PT THAT [facility] NEEDS HIM TO PARTICIPATE WITH ANY OFFERED THERAPY. PT ASSURED CM HE WILL PARTICIPATE WITH THERAPY. CM EXPLAINED THAT PT WILL NEED MEDICARE NUMBER. PT ASKED FOR MEDICARE CONTACT PHONE NUMBER HE DOES NOT HAVE A MEDICARE CARD AND NEVER RECEIVED IT BUT INSISTED HE DOES HAVE MEDICARE. PT LATER CALLED CM AND PROVIDED MEDICARE [id number], [id number]. CM FAXED THIS NUMBER WITH UPDATE TO [facility] AT [phone]. CM WAITING ADMISSION DETERMINATION FROM [facility]. CM WAITING PT'S PARTICIPATION WITH THERAPY SERVICES. Site Safety Coordinator: Broderick Gonzalez DCP- Discharge Planning Updated by [id number]: Broderick Gonzalez on 03/09/19 3:[address] Patient Name: MAKENZIE DESAI Admission Status: ER Accout number: [id number] Admission Date: 03-07-2019 : 07-23-1950 Admission Diagnosis: Attending: EVONNE TAPIA Current LOS: 2 Anticipated DC Date: Planned Disposition: Fpc Facility Primary Insurance: MEDICARE PART A ONLY PLANNED EXTERNAL PROVIDER: [facility], MEDICARE REHAB BED Discharge Planning Comments: CM MET WITH PT IN ROOM TO DISCUSS DISCHARGE PLANNING AND NEEDS. PT REPORTS LIVING AT HOME INDEPENDENTLY WITH A FRIEND WHO WAS SPITTING THE RENT WITH HIM AT [facility]. THE FRIEND LEFT AND STOLE A "BUNCH OF STUFF" FROM PT. PT STATES HE WILL HAVE TO WORK OUT A NEW LIVING ARRANGEMENT WHEN HE IS ABLE TO WALK AND TAKE CARE OF HIMSELF AGAIN. PT HAS POWER WHEELCHAIR AND WALKER FROM [facility]. PT HAS NO OUTSIDE SERVICES ASSISTING IN THE HOME. CM DISCUSSED AVAILABILITY OF HOME HEALTH, REHAB SERVICES AND MEDICAL EQUIPMENT. PT STATES HE NEEDS REHAB AND WOULD LIKE TO RETURN TO [facility] OR HAVE REHAB AT [facility] IF DECLINED BY [facility]. CHOICE SIGNED. CM REVIEWED CHART NOTES, THERAPY INDICATED THAT PT HAS REFUSED FOR THE FIRST TWO OFFERED SESSIONS. CM SPOKE TO PT IN ROOM WHO INSISTS THAT HE DID NOT REFUSE, THAT THE THERAPIST ASKED PT TO STAND UP BY THE BED AND PT STATED HE COULD NOT. PT ENCOURAGED TO PARTICIPATE WITH THERAPY EACH TIME IT IS OFFERED AND EXPLAINED IF PT IS ASKING CM TO GET HIM INTO REHAB, PT NEEDS TO DO HIS PART AND PARTICIPATE EACH TIME WITH THERAPY. PT STATES UNDERSTANDING. CM FAXED REHAB REFERRAL TO [facility] AT [phone]. CM TO FOLLOW UP WITH JUAN OF [facility] AT [phone], AFTER GOLDEN, TO MAKE HER AWARE OF REHAB REFERRAL. CM WAITING PT'S PARTICIPATION WITH THERAPY SERVICES. Site Safety Coordinator: Broderick Gonzalez DCPIA - Discharge Planning Initial Assessment Updated by [id number]: Broderick Gonzalez on 03/09/19 4:34 pm * Is the patient Alert and Oriented? Yes * How many steps to enter\\exit or inside your home? NONE * PCP DR. BARRERA * [facility] [place] [facility] [place] * Preadmission Environment Home with Family * ADLs Independent * Equipment Cane Power Chair or Electric Scooter * Other Equipment [facility] IS PROVIDER OF EQUIPMENT * List name and contact numbers for known caregivers / representatives who currently or will assist patient after discharge: LILIAM DESAI, EX , * Verbal permission to speak to the caregivers and representatives has been obtained from the patient. N/A * Community resources currently utilized None * Please name any agencies selected above. NONE * Additional services required to return to the preadmission environment? Yes * Can the patient safely return to the preadmission environment? Yes * Has this patient been hospitalized within the prior 30 days at any hospital? No External Providers External Provider: [facility] Next Contact Date: 03/15/2019 Service Request Date: Service Type: Resolution: Reviewer: Comments: Coverage Notice Reviewer: [id number] - Broderick Gonzalez Notice Issued Date-Time: 03/09/2019 16:05 Notice Type: Patient Choice Letter Notice Delivered To: Patient Relationship to Patient: [employer] Consultant Name: Delivery Method: HAND - Hand Delivered Colette Days: Prior Verbal Notification: Recipient Understood Notice: Yes Recipient Signature: Yes Med Rec Note Co-signed by Attending: Coverage Notice Comment: [facility] Last DP export: 03/15/19 1:24 Patient Name: MAKENZIE DESAI Page [id number] at 1638 All edits/amendments must be made on the electronic document DICTATION DATE: 03/15/191637 SUPERVISOR BILLPOSTING: OSMEL 03/15/191637 RPT#: [id number] DC DATE: STATUS: ADM IN [facility] [address] [place] [address] END OF REPORT
--- NOTE | 2019-03-15 16:46 | MORECARE ---
CASE MANAGEMENT DISCHARGE SUMMARY PATIENT: MAKENZIE DESAI UNIT: [id number] ADM DATE: 03/07/19 AGE: 68 : [birth year] SEX: M ROOM/BED: D.2102 AUTHOR: СЕРГЕЙ,DOC PHYSICIAN: REFERRING PHYSICIAN: EVONNE TAPIA MD DATE OF SERVICE: 03/15/19 Discharge Plan Patient Name: MAKENZIE DESAI Facility: [facility]:[place] : 07/23/1950 Planned Disposition: Longterm Facility Anticipated Discharge Date: Discharge Date: Expected LOS: Initial Reviewer: [id number] Initial Review Date: 03/09/2019 Generated: 03/15/19 5:46 pm Comments DCP- Discharge Planning Updated by [id number]: Broderick Gonzalez on 03/15/19 1:[address] Patient Name: MAKENZIE DESAI Encounter No: [id number] : 07-23-1950 Primary Insurance: MEDICARE PART A ONLY Anticipated DC Date: Planned Disposition: Longterm Facility External Planned Provider: [facility], MEDICARE REHAB BED DCP follow-up note: CM RECEIVED CALL FROM SYD OF [facility] WHO ADVISED THEY CANNOT MEET PT'S NEEDS. CM NOTIFIED PT IN ROOM WHO ASKED CM TO CALL [facility] AND ASK THEM TO HANG ON TO HIS WHEELCHAIR HE PAID SOMEONE TO BRING IT THERE THINKING THEY WERE ACCEPTING HIM. PT WILL PAY SOMEONE TO PICK IT UP. CM CALLED AND NOTIFIED SYD WHO INFORMED CM THAT SHE HAS NOT SEEN PT'S WHEELCHAIR AND PT NEEDS TO FOLLOW UP WITH WHOMEVER HE PAID FOR DELIVERY. CM NOTIFIED PT. CM ENCOURAGED PT TO CONTINUE HIS COOPERATION WITH THERAPY SERVICES, PT STATES HE WILL. CM FAXED REFERRAL TO [facility], . CM NOTIFIED MARICRUZ OF THE [facility] OF REFERRAL. CM WAITING ADMISSION DETERMINATION FROM THE [facility]. BRODERICK GONZALEZ CASE MANAGEMENT DCP- Discharge Planning Updated by [id number]: Broderick Gonzalez on 03/15/19 8:[address] Patient Name: MAKENZIE DESAI Encounter No: [id number] : 07-23-1950 Primary Insurance: MEDICARE PART A ONLY Anticipated DC Date: Planned Disposition: Longterm Facility External Planned Provider: [facility], MEDICARE REHAB BED Discharge Planning Comments: CM REVIEWED CHART, THERE ARE NOT THERAPY NOTES FROM THE WEEKEND. CM FAXED UPDATE TO [facility] AT [phone]. CM WAITING ADMISSION DETERMINATION FROM [facility]. CM WAITING PT'S PARTICIPATION WITH THERAPY SERVICES. Scroll Machine Operator: Broderick Gonzalez DCP- Discharge Planning Updated by [id number]: Broderick Gonzalez on 03/12/19 2:[address] Patient Name: MAKENZIE DESAI Encounter No: [id number] : 07-23-1950 Primary Insurance: MEDICARE PART A ONLY Anticipated DC Date: Planned Disposition: Longterm Facility External Planned Provider: [facility], MEDICARE REHAB BED Discharge Planning Comments: CM REVIEWED CHART NOTES, THERAPY INDICATED THAT PT HAS REFUSED THERAPY AND THERAPY HAS SIGNED OFF DUE TO REFUSALS. CM SPOKE TO DR. TAPIA AND JACEY PERKINS, OBTAINED NEW THERAPY ORDERS. CM MET WITH PT ROOM WHO ASSURED CM HE WILL PARTICIPATE WITH THERAPY AND UNDERSTANDS HE NEEDS TO FOR REHAB PLACEMENT. CM FAXED UPDATE TO [facility] AT [phone]. CM WAITING ADMISSION DETERMINATION FROM [facility]. CM WAITING PT'S PARTICIPATION WITH THERAPY SERVICES. Scroll Machine Operator: Broderick Gonzalez DCP- Discharge Planning Updated by [id number]: Broderick Gonzalez on 03/11/19 1:[address] Patient Name: MAKENZIE DESAI Encounter No: [id number] : 07-23-1950 Primary Insurance: MEDICARE PART A ONLY Anticipated DC Date: Planned Disposition: Longterm Facility External Planned Provider:[facility], MEDICARE REHAB BED Discharge Planning Comments: CM RECEIVED CALL FROM CHIDI OF [facility], , WHO HAS RECEIVED REFERRAL AND THEY ARE SCREENING FOR SKILLED ADMISSION. [facility] REPORTS PT MUST PARTICIPATE WITH THERAPY AND MUST PROVIDE HIS MEDICARE NUMBER. DEXTER REVIEWED CHART NOTES, THERAPY INDICATED THAT PT HAS REFUSED THERAPY AND THERAPY HAS SIGNED OFF DUE TO REFUSALS. CM MET WITH PT ROOM WHO INSISTS AGAIN THAT HE DID NOT REFUSE, CM EXPLAINED THAT IF PT STATES HE WILL DO SOMTHING AND DOES NOT TAKE PHYSICAL ACTION IN EFFORT TO PARTICIPATE, HE IS INDEED REFUSING. CM EDUCATED PT THAT [facility] NEEDS HIM TO PARTICIPATE WITH ANY OFFERED THERAPY. PT ASSURED CM HE WILL PARTICIPATE WITH THERAPY. CM EXPLAINED THAT PT WILL NEED MEDICARE NUMBER. PT ASKED FOR MEDICARE CONTACT PHONE NUMBER HE DOES NOT HAVE A MEDICARE CARD AND NEVER RECEIVED IT BUT INSISTED HE DOES HAVE MEDICARE. PT LATER CALLED CM AND PROVIDED MEDICARE [id number], [id number]. CM FAXED THIS NUMBER WITH UPDATE TO [facility] AT [phone]. CM WAITING ADMISSION DETERMINATION FROM [facility]. CM WAITING PT'S PARTICIPATION WITH THERAPY SERVICES. Scroll Machine Operator: Broderick Gonzalez DCP- Discharge Planning Updated by [id number]: Broderick Gonzalez on 03/09/19 3:[address] Patient Name: MAKENZIE DESAI Admission Status: ER Accout number: [id number] Admission Date: 03-07-2019 : 07-23-1950 Admission Diagnosis: Attending: EVONNE TAPIA Current LOS: 2 Anticipated DC Date: Planned Disposition: Longterm Facility Primary Insurance: MEDICARE PART A ONLY PLANNED EXTERNAL PROVIDER: [facility], MEDICARE REHAB BED Discharge Planning Comments: CM MET WITH PT IN ROOM TO DISCUSS DISCHARGE PLANNING AND NEEDS. PT REPORTS LIVING AT HOME INDEPENDENTLY WITH A FRIEND WHO WAS SPITTING THE RENT WITH HIM AT [facility]. THE FRIEND LEFT AND STOLE A "BUNCH OF STUFF" FROM PT. PT STATES HE WILL HAVE TO WORK OUT A NEW LIVING ARRANGEMENT WHEN HE IS ABLE TO WALK AND TAKE CARE OF HIMSELF AGAIN. PT HAS POWER WHEELCHAIR AND WALKER FROM [facility]. PT HAS NO OUTSIDE SERVICES ASSISTING IN THE HOME. CM DISCUSSED AVAILABILITY OF HOME HEALTH, REHAB SERVICES AND MEDICAL EQUIPMENT. PT STATES HE NEEDS REHAB AND WOULD LIKE TO RETURN TO [facility] OR HAVE REHAB AT THE [facility] IF DECLINED BY [facility]. CHOICE SIGNED. CM REVIEWED CHART NOTES, THERAPY INDICATED THAT PT HAS REFUSED FOR THE FIRST TWO OFFERED SESSIONS. CM SPOKE TO PT IN ROOM WHO INSISTS THAT HE DID NOT REFUSE, THAT THE THERAPIST ASKED PT TO STAND UP BY THE BED AND PT STATED HE COULD NOT. PT ENCOURAGED TO PARTICIPATE WITH THERAPY EACH TIME IT IS OFFERED AND EXPLAINED IF PT IS ASKING CM TO GET HIM INTO REHAB, PT NEEDS TO DO HIS PART AND PARTICIPATE EACH TIME WITH THERAPY. PT STATES UNDERSTANDING. CM FAXED REHAB REFERRAL TO [facility] AT [phone]. CM TO FOLLOW UP WITH JUAN OF [facility] AT [phone], AFTER GOLDEN, TO MAKE HER AWARE OF REHAB REFERRAL. CM WAITING PT'S PARTICIPATION WITH THERAPY SERVICES. Scroll Machine Operator: Broderick Gonzalez DCPIA - Discharge Planning Initial Assessment Updated by [id number]: Broderick Gonzalez on 03/09/19 4:34 pm * Is the patient Alert and Oriented? Yes * How many steps to enter\\exit or inside your home? NONE * PCP DR. BARRERA * [facility]acy [facility] [place] [facility] [place] * Preadmission Environment Home with Family * ADLs Independent * Equipment Cane Power Chair or Electric Scooter * Other Equipment [facility] IS PROVIDER OF EQUIPMENT * List name and contact numbers for known caregivers / representatives who currently or will assist patient after discharge: LILIAM DESAI, EX , * Verbal permission to speak to the caregivers and representatives has been obtained from the patient. N/A * Community resources currently utilized None * Please name any agencies selected above. NONE * Additional services required to return to the preadmission environment? Yes * Can the patient safely return to the preadmission environment? Yes * Has this patient been hospitalized within the prior 30 days at any hospital? No External Providers External Provider: [facility] Next Contact Date: 03/15/2019 Service Request Date: Service Type: Resolution: Reviewer: Comments: Coverage Notice Reviewer: [id number] - Broderick Gonzalez Notice Issued Date-Time: 03/09/2019 16:05 Notice Type: Patient Choice Letter Notice Delivered To: Patient Relationship to Patient: Chief Marketing Officer Name: Delivery Method: HAND - Hand Delivered Colette Days: Prior Verbal Notification: Recipient Understood Notice: Yes Recipient Signature: Yes Med Rec Note Co-signed by Attending: Coverage Notice Comment: [facility] Last DP export: 03/15/19 3:38 Patient Name: MAKENZIE DESAI Page 33347 at 1646 All edits/amendments must be made on the electronic document DICTATION DATE: 03/15/191645 INSPECTOR FIREARMS: OSMEL 03/15/191645 RPT#: [id number] DC DATE: STATUS: ADM IN [facility] [address] [facility] [place] [address] END OF REPORT
--- NOTE | 2019-03-15 16:56 | MORECARE ---
CASE MANAGEMENT DISCHARGE SUMMARY PATIENT: MAKENZIE DESAI UNIT: [id number] ADM DATE: 03/07/19 AGE: 68 : [birth year] SEX: M ROOM/BED: D.2102 AUTHOR: СЕРГЕЙ,DOC PHYSICIAN: REFERRING PHYSICIAN: EVONNE TAPIA MD DATE OF SERVICE: 03/15/19 Discharge Plan Patient Name: MAKENZIE DESAI Facility: [facility]:[place] : 07/23/1950 Planned Disposition: Longterm Facility Anticipated Discharge Date: Discharge Date: Expected LOS: Initial Reviewer: [id number] Initial Review Date: 03/09/2019 Generated: 03/15/19 5:56 pm Comments DCP- Discharge Planning Updated by [id number]: Broderick Gonzalez on 03/15/19 3:[address] Patient Name: MAKENZIE DESAI Encounter No: [id number] : 07-23-1950 Primary Insurance: MEDICARE PART A ONLY Anticipated DC Date: Planned Disposition: Longterm Facility External Planned Provider: [facility]PTING [facility], MEDICARE REHAB BED DCP follow-up note: CM RECEIVED CALL FROM MARICRUZ [facility] WHO DECLINED PT STATING THAT PT HAS BEEN THERE AND HE WAS NOT COOPERATIVE WITH THERAPY AND HIS BEHAVIOR TOWARD STAFF WAS NOT GOOD. CM SPOKE TO PT AND GAVE HIM THE NEWS. PT STATES HE NEEDS SOMEWHERE TO GO AND ASKED CM TO CHECK WITH ANY FACILITY IN [place] THAT MAY BE WILLING TO TAKE HIM. CHOICE SIGNED FOR ANY [facility] FACILITY IN [place]. CM NOTIFIED [facility] AT [phone] AND FAXED REFERRAL TO [facility] FOR [facility] AND [facility] AT [phone]. CM FAXED REFERRAL TO [facility] AT [phone]. PT HAS BEEN DECLINED PLACEMENT BY [facility] AND [facility]. CM WAITING ON ADMISSION DETERMINATIONS FROM [facility], [facility] AND [facility]. Broderick Gonzalez, CASE MANAGEMENT DCP- Discharge Planning Updated by [id number]: Broderick Gonzalez on 03/15/19 1:[address] Patient Name: MAKENZIE DESAI Encounter No: [id number] : 07-23-1950 Primary Insurance: MEDICARE PART A ONLY Anticipated DC Date: Planned Disposition: Longterm Facility External Planned Provider: [facility], MEDICARE REHAB BED DCP follow-up note: CM RECEIVED CALL FROM SYD OF [facility] WHO ADVISED THEY CANNOT MEET PT'S NEEDS. CM NOTIFIED PT IN ROOM WHO ASKED CM TO CALL [facility] AND ASK THEM TO HANG ON TO HIS WHEELCHAIR HE PAID SOMEONE TO BRING IT THERE THINKING THEY WERE ACCEPTING HIM. PT WILL PAY SOMEONE TO PICK IT UP. CM CALLED AND NOTIFIED SYD WHO INFORMED CM THAT SHE HAS NOT SEEN PT'S WHEELCHAIR AND PT NEEDS TO FOLLOW UP WITH WHOMEVER HE PAID FOR DELIVERY. CM NOTIFIED PT. CM ENCOURAGED PT TO CONTINUE HIS COOPERATION WITH THERAPY SERVICES, PT STATES HE WILL. CM FAXED REFERRAL TO [facility] [place], . CM NOTIFIED MARICRUZ OF [facility] OF REFERRAL. CM WAITING ADMISSION DETERMINATION FROM [facility]. BRODERICK GONZALEZ, CASE MANAGEMENT DCP- Discharge Planning Updated by [id number]: Broderick Gonzalez on 03/15/19 8:[address] Patient Name: MAKENZIE DESAI Encounter No: [id number] : 07-23-1950 Primary Insurance: MEDICARE PART A ONLY Anticipated DC Date: Planned Disposition: Longterm Facility External Planned Provider: [facility], MEDICARE REHAB BED Discharge Planning Comments: CM REVIEWED CHART, THERE ARE NOT THERAPY NOTES FROM THE WEEKEND. CM FAXED UPDATE TO [facility] AT [phone]. CM WAITING ADMISSION DETERMINATION FROM [facility]. CM WAITING PT'S PARTICIPATION WITH THERAPY SERVICES. Windows Software Engineer: Broderick Gonzalez DCP- Discharge Planning Updated by [id number]: Broderick Gonzalez on 03/12/19 2:[address] Patient Name: MAKENZIE DESAI Encounter No: [id number] : 07-23-1950 Primary Insurance: MEDICARE PART A ONLY Anticipated DC Date: Planned Disposition: Longterm Facility External Planned Provider: [facility], MEDICARE REHAB BED Discharge Planning Comments: CM REVIEWED CHART NOTES, THERAPY INDICATED THAT PT HAS REFUSED THERAPY AND THERAPY HAS SIGNED OFF DUE TO REFUSALS. CM SPOKE TO DR. TAPIA AND JACEY PERKINS, OBTAINED NEW THERAPY ORDERS. CM MET WITH PT ROOM WHO ASSURED CM HE WILL PARTICIPATE WITH THERAPY AND UNDERSTANDS HE NEEDS TO FOR REHAB PLACEMENT. CM FAXED UPDATE TO [facility] AT [phone]. CM WAITING ADMISSION DETERMINATION FROM [facility]. CM WAITING PT'S PARTICIPATION WITH THERAPY SERVICES. Windows Software Engineer: Broderick Gonzalez DCP- Discharge Planning Updated by [id number]: Broderick Gonzalez on 03/11/19 1:[address] Patient Name: MAKENZIE DESAI Encounter No: [id number] : 07-23-1950 Primary Insurance: MEDICARE PART A ONLY Anticipated DC Date: Planned Disposition: Longterm Facility External Planned Provider:[facility], MEDICARE REHAB BED Discharge Planning Comments: CM RECEIVED CALL FROM CHIDI OF [facility], , WHO HAS RECEIVED REFERRAL AND THEY ARE SCREENING FOR SKILLED ADMISSION. CHIDI REPORTS PT MUST PARTICIPATE WITH THERAPY AND MUST PROVIDE HIS MEDICARE NUMBER. CM REVIEWED CHART NOTES, THERAPY INDICATED THAT PT HAS REFUSED THERAPY AND THERAPY HAS SIGNED OFF DUE TO REFUSALS. CM MET WITH PT ROOM WHO INSISTS AGAIN THAT HE DID NOT REFUSE, CM EXPLAINED THAT IF PT STATES HE WILL DO SOMTHING AND DOES NOT TAKE PHYSICAL ACTION IN EFFORT TO PARTICIPATE, HE IS INDEED REFUSING. CM EDUCATED PT THAT [facility] NEEDS HIM TO PARTICIPATE WITH ANY OFFERED THERAPY. PT ASSURED CM HE WILL PARTICIPATE WITH THERAPY. CM EXPLAINED THAT PT WILL NEED MEDICARE NUMBER. PT ASKED FOR MEDICARE CONTACT PHONE NUMBER HE DOES NOT HAVE A MEDICARE CARD AND NEVER RECEIVED IT BUT INSISTED HE DOES HAVE MEDICARE. PT LATER CALLED CM AND PROVIDED MEDICARE [id number], [id number]. CM FAXED THIS NUMBER WITH UPDATE TO [facility] AT [phone]. CM WAITING ADMISSION DETERMINATION FROM [facility]. CM WAITING PT'S PARTICIPATION WITH THERAPY SERVICES. Windows Software Engineer: Broderick Gonzalez DCP- Discharge Planning Updated by [id number]: Broderick Gonzalez on 03/09/19 3:[address] Patient Name: MAKENZIE DESAI Admission Status: ER Accout number: [id number] Admission Date: 03-07-2019 : 07-23-1950 Admission Diagnosis: Attending: EVONNE TAPIA Current LOS: 2 Anticipated DC Date: Planned Disposition: Longterm Facility Primary Insurance: MEDICARE PART A ONLY PLANNED EXTERNAL PROVIDER: [facility], MEDICARE REHAB BED Discharge Planning Comments: CM MET WITH PT IN ROOM TO DISCUSS DISCHARGE PLANNING AND NEEDS. PT REPORTS LIVING AT HOME INDEPENDENTLY WITH A FRIEND WHO WAS SPITTING THE RENT WITH HIM AT [facility]. THE FRIEND LEFT AND STOLE A "BUNCH OF STUFF" FROM PT. PT STATES HE WILL HAVE TO WORK OUT A NEW LIVING ARRANGEMENT WHEN HE IS ABLE TO WALK AND TAKE CARE OF HIMSELF AGAIN. PT HAS POWER WHEELCHAIR AND WALKER FROM [facility]. PT HAS NO OUTSIDE SERVICES ASSISTING IN THE HOME. CM DISCUSSED AVAILABILITY OF HOME HEALTH, REHAB SERVICES AND MEDICAL EQUIPMENT. PT STATES HE NEEDS REHAB AND WOULD LIKE TO RETURN TO [facility] OR HAVE REHAB AT [facility] IF DECLINED BY [facility]. CHOICE SIGNED. CM REVIEWED CHART NOTES, THERAPY INDICATED THAT PT HAS REFUSED FOR THE FIRST TWO OFFERED SESSIONS. CM SPOKE TO PT IN ROOM WHO INSISTS THAT HE DID NOT REFUSE, THAT THE THERAPIST ASKED PT TO STAND UP BY THE BED AND PT STATED HE COULD NOT. PT ENCOURAGED TO PARTICIPATE WITH THERAPY EACH TIME IT IS OFFERED AND EXPLAINED IF PT IS ASKING CM TO GET HIM INTO REHAB, PT NEEDS TO DO HIS PART AND PARTICIPATE EACH TIME WITH THERAPY. PT STATES UNDERSTANDING. CM FAXED REHAB REFERRAL TO [facility] AT [phone]. CM TO FOLLOW UP WITH JUAN OF [facility] AT [phone], AFTER [place], TO MAKE HER AWARE OF REHAB REFERRAL. CM WAITING PT'S PARTICIPATION WITH THERAPY SERVICES. Windows Software Engineer: Broderick Gonzalez DCPIA - Discharge Planning Initial Assessment Updated by [id number]: Broderick Gonzalez on 03/09/19 4:34 pm * Is the patient Alert and Oriented? Yes * How many steps to enter\\exit or inside your home? NONE * PCP DR. BARRERA * [facility]acy [facility] [place] OR [facility], IN [place] * Preadmission Environment Home with Family * ADLs Independent * Equipment Cane Power Chair or Electric Scooter * Other Equipment [facility] IS PROVIDER OF EQUIPMENT * List name and contact numbers for known caregivers / representatives who currently or will assist patient after discharge: LILIAM DESAI, EX , * Verbal permission to speak to the caregivers and representatives has been obtained from the patient. N/A * Community resources currently utilized None * Please name any agencies selected above. NONE * Additional services required to return to the preadmission environment? Yes * Can the patient safely return to the preadmission environment? Yes * Has this patient been hospitalized within the prior 30 days at any hospital? No Coverage Notice Reviewer: [id number] Christian Gonzalez Notice Issued Date-Time: 03/09/2019 16:05 Notice Type: Patient Choice Letter Notice Delivered To: Patient Relationship to Patient: Military Technician Name: Delivery Method: HAND - Hand Delivered Colette Days: Prior Verbal Notification: Recipient Understood Notice: Yes Recipient Signature: Yes Med Rec Note Co-signed by Attending: Coverage Notice Comment: [place] Reviewer: [id number] Christian Gonzalez Notice Issued Date-Time: 03/15/2019 16:30 Notice Type: Patient Choice Letter Notice Delivered To: Patient Relationship to Patient: Military Technician Name: Delivery Method: HAND - Hand Delivered Colette Days: Prior Verbal Notification: Recipient Understood Notice: Yes Recipient Signature: Yes Med Rec Note Co-signed by Attending: Coverage Notice Comment: ANY [place] [facility] FACLITY. Last DP export: 03/15/19 3:46 Patient Name: MAKENZIE DESAI Page [phone] at 1656 All edits/amendments must be made on the electronic document DICTATION DATE: 03/15/191655 QUICK SERVICE TECHNICIAN: OSMEL 03/15/191655 RPT#: [id number] DC DATE: STATUS: ADM IN [facility] [address] [place] [address] END OF REPORT
--- NOTE | 2019-03-15 19:34 | NUR ---
EVENING ROUNDS COMPLETE. PT SITTING UP IN BED. NO SIGNS OF DISTRESS. PT DENINES ANY PAIN OR NEEDS AT THIS TIME. CL IN REACH, BED IN LOWEST POSITION.
[2019-03-15 20:00] VITALS: BP 114/73
[2019-03-16] VITALS: BP 105/80
[2019-03-16 04:00] VITALS: BP 124/94
[2019-03-16 05:37] LABS: BASOPHILS 0.2 % (0-2); EOSINOPHILS 3.9 % (0-7); HEMATOCRIT 41.4 % (42.0-54.0); HEMOGLOBIN 12.2 g/dL (13.5-17.5); IMMATURE GRANULOCYTES 0.4 % (0-5); LYMPHOCYTES 11.4 % (15-50); MCH 24.9 pg (26.0-34.0); MCHC 29.5 g/dL (31.0-37.0); MCV 84.5 fL (80.0-100.0); MEAN PLATELET VOLUME 9.6 fL (7.4-10.4); MONOCYTES 13.4 % (2-11); NEUTROPHILS 70.7 % (40-80); PLATELET COUNT 374 10x3/uL (130-400); RDW 17.6 % (11.5-14.5); WBC 9.3 10x3/uL (4.8-10.8)
[2019-03-16 06:38] LABS: CALC OSMOLALITY 286 mosm/kg (275-300); CALCIUM 7.5 mg/dL (8.5-10.1); CARBON DIOXIDE 38.8 mmol/L (21.0-32.0); CHLORIDE - SERUM 102 mmol/L (98-107); CREATININE - SERUM 0.8 mg/dL (0.6-1.3); GLUCOSE 106 mg/dL (74-106); POTASSIUM - SERUM 3.4 mmol/L (3.5-5.1); SODIUM 142 mmol/L (136-145); UREA NITROGEN 23 mg/dL (7-18); eGFR NON AFRICAN AMERICAN > 90 mL/min (90-120)
--- NOTE | 2019-03-16 06:38 | NUR ---
PT REFUSED TO GIVE A STANDING WT THIS AM.
[2019-03-16 07:36] VITALS: BP 126/58
--- NOTE | 2019-03-16 10:06 | NUR ---
Nutrition Follow-up: PO intake fluctuating. Does not like renal diet. Noted pt refused wt this AM. Diet: Renal PO intake: 25-50% No new wt Last BM: 03/10 per chart Labs noted: K+ 3.4, Ca 7.5 Meds noted: Bumex, KCl, Miralax (refusing) -Rec cardiac diet to improve acceptability; BUN 23, Cre 0.8, GFR >90. -RD following.
[2019-03-16 11:34] VITALS: BP 126/71
[2019-03-16 15:11] VITALS: BP 132/60
--- NOTE | 2019-03-16 19:00 | NUR ---
EVENING ROUNDS COMPLETE. PT SITTING UP IN BED, AAOX4. NO SIGNS OF DISTRESS. PT DENIES ANY PAIN OR NEEDS AT THIS TIME. CL IN REACH, BED IN LOWEST POSITION.
[2019-03-16 20:00] VITALS: BP 98/61
[2019-03-17] VITALS: BP 118/53
[2019-03-17 04:00] VITALS: BP 127/63
--- NOTE | 2019-03-17 04:00 | NUR ---
PAGED RESP THERAPY FOR PT PRN BREATHING TREATMENT.
--- NOTE | 2019-03-17 04:18 | NUR ---
PAGED RESP THERAPY AGAIN FOR PRN BREATHING TREATMENT.
--- NOTE | 2019-03-17 04:22 | NUR ---
PT CALLED N[facility]SES [facility] FOR CHARGE NURSE. PT STATED IT HAD BEEN OVER AN HOUR SINCE HE ASKED FOR A BREATHING TREATMENT. ALSO ASKING TO SPEAK WITH STEPHANIE BUCHANAN. THIS NURSE SPOKE WITH STEPHANIE JONES AND WAS TOLD TO [facility] AGAIN. THIS NURSE WAS TOLD BY RESP THERAPY SOMEONE WOULD BE UP HERE SOON THEY COULD.
[2019-03-17 06:03] LABS: CALC OSMOLALITY 285 mosm/kg (275-300); CALCIUM 7.8 mg/dL (8.5-10.1); CARBON DIOXIDE 37.9 mmol/L (21.0-32.0); CHLORIDE - SERUM 101 mmol/L (98-107); CREATININE - SERUM 0.9 mg/dL (0.6-1.3); GLUCOSE 125 mg/dL (74-106); SODIUM 141 mmol/L (136-145); UREA NITROGEN 23 mg/dL (7-18); eGFR NON AFRICAN AMERICAN 89 mL/min (90-120)
[2019-03-17 06:12] LABS: POTASSIUM - SERUM 3.4 mmol/L (3.5-5.1)
[2019-03-17 07:00] LABS: BASOPHILS 0.3 % (0-2); EOSINOPHILS 3.3 % (0-7); HEMATOCRIT 40.9 % (42.0-54.0); HEMOGLOBIN 12.2 g/dL (13.5-17.5); IMMATURE GRANULOCYTES 0.5 % (0-5); LYMPHOCYTES 12.4 % (15-50); MCH 25.1 pg (26.0-34.0); MCHC 29.8 g/dL (31.0-37.0); MEAN PLATELET VOLUME 10.2 fL (7.4-10.4); MONOCYTES 11.9 % (2-11); NEUTROPHILS 71.6 % (40-80); PLATELET COUNT 386 10x3/uL (130-400); RBC 4.87 10x6/uL (4.20-6.10); RDW 17.7 % (11.5-14.5); WBC 9.3 10x3/uL (4.8-10.8)
[2019-03-17 08:00] VITALS: BP 112/70
[2019-03-17 11:36] VITALS: BP 119/70
--- NOTE | 2019-03-17 12:50 | NUR ---
OT NOTE: (DOS 03/16/19) PT COMPLETED BED MOBS TASKS WITH MIN A. PT COMPLETED FACE WASH WITH SET UP. PT COMPLETED UE AROM AXS. PT REQUIRED CUES FOR INCREASED PARTICIPATION. [phone] THANK YOU, GEORGETTE RICHARDS
--- NOTE | 2019-03-17 14:06 | NUR ---
OT NOTE: BED MOB INCLUDING ROLLING AND SUPINE TO SIT WITHOUT ASSIST. SITTING BALANCE GOOD. UE/LE ROM EXS. LES VERY DRY AND SCALEY BUT LE EDEMA IS MUCH IMPROVED. PT CONT TO REPORT PAIN OF 10/24 ERICA NUNEZ, OTR/L [phone]
[2019-03-17 16:04] VITALS: BP 99/55
--- NOTE | 2019-03-17 17:58 | NUR ---
PT RESTING QUIETLY AT THIS TIME WITH NO COMPLAINTS. HAS BEEN COMPLAINING OF SOB MORE TODAY AND REQUESTING PRN TREATMENTS BUT 02 SATS HAVE BEEN GOOD. DID STAND AT SIDE OF BED WITH PT TODAY BUT DID NOT WALK ANY. MIDLINE IV REMAINS PATENT TO LEFT UPPER ARM WITHOUT REDNESS OR EDEMA. NO REQUESTS OR COMPLAINTS VOICED.
--- NOTE | 2019-03-17 18:05 | NUR ---
I CONCUR WITH THE SANITATION WORKER CLEANING EQUIPMENT ASSESSMENT OF THIS PATIENT.
[2019-03-17 20:15] VITALS: BP 111/69
[2019-03-18] VITALS: BP 140/11
[2019-03-18 00:30] VITALS: BP 98/63
[2019-03-18 04:21] VITALS: BP 126/63
[2019-03-18 05:21] LABS: BASOPHILS 0.1 % (0-2); HEMATOCRIT 40.1 % (42.0-54.0); HEMOGLOBIN 12.1 g/dL (13.5-17.5); IMMATURE GRANULOCYTES 0.7 % (0-5); MCH 25.1 pg (26.0-34.0); MCHC 30.2 g/dL (31.0-37.0); MONOCYTES 13.3 % (2-11); NEUTROPHILS 70.9 % (40-80); PLATELET COUNT 365 10x3/uL (130-400); RBC 4.83 10x6/uL (4.20-6.10); RDW 17.3 % (11.5-14.5)
[2019-03-18 05:41] LABS: CALC OSMOLALITY 283 mosm/kg (275-300); CALCIUM 7.7 mg/dL (8.5-10.1); CARBON DIOXIDE 37.8 mmol/L (21.0-32.0); CHLORIDE - SERUM 99 mmol/L (98-107); CREATININE - SERUM 0.9 mg/dL (0.6-1.3); GLUCOSE 109 mg/dL (74-106); POTASSIUM - SERUM 3.8 mmol/L (3.5-5.1); SODIUM 139 mmol/L (136-145); UREA NITROGEN 27 mg/dL (7-18); eGFR NON AFRICAN AMERICAN 89 mL/min (90-120)
[2019-03-18 09:42] VITALS: BP 90/62
--- NOTE | 2019-03-18 11:20 | MORECARE ---
CASE MANAGEMENT DISCHARGE SUMMARY PATIENT: MAKENZIE DESAI UNIT: [id number] ADM DATE: 03/07/19 AGE: 68 : [birth year] SEX: M ROOM/BED: D.2102 AUTHOR: СЕРГЕЙ,DOC PHYSICIAN: REFERRING PHYSICIAN: EVONNE TAPIA MD DATE OF SERVICE: 03/18/19 Discharge Plan Patient Name: MAKENZIE DESAI Facility: [facility]:[place] : 07/23/1950 Planned Disposition: Mcfp Facility Anticipated Discharge Date: Discharge Date: Expected LOS: Initial Reviewer: [id number] Initial Review Date: 03/09/2019 Generated: 03/18/19 12:20 pm DCP- Discharge Planning Updated by [id number]: Camila Gonzalez on 03/15/19 3:[address] Patient Name: MAKENZIE DESAI Encounter No: [id number] : 07-23-1950 Primary Insurance: MEDICARE PART A ONLY Anticipated DC Date: Planned Disposition: Mcfp Facility External Planned Provider: [facility]PTING [facility], MEDICARE REHAB BED DCP follow-up note: CM RECEIVED CALL FROM [facility] WHO DECLINED PT STATING THAT PT HAS BEEN THERE AND HE WAS NOT COOPERATIVE WITH THERAPY AND HIS BEHAVIOR TOWARD STAFF WAS NOT GOOD. CM SPOKE TO PT AND GAVE HIM THE NEWS. PT STATES HE NEEDS SOMEWHERE TO GO AND ASKED CM TO CHECK WITH ANY FACILITY IN [place] THAT MAY BE WILLING TO TAKE HIM. CHOICE SIGNED FOR ANY [facility] FACILITY IN [place]. CM NOTIFIED [facility] AT [phone] AND FAXED REFERRAL TO [facility] FOR [facility] AT [phone]. CM FAXED REFERRAL TO [facility] AT [phone]. PT HAS BEEN DECLINED PLACEMENT BY [facility] AND [facility]. CM WAITING ON ADMISSION DETERMINATIONS FROM [facility], [facility] AND [facility]. Camila Gonzalez, CASE MANAGEMENT DCP- Discharge Planning Updated by [id number]: Camila Gonzalez on 03/15/19 1:[address] Patient Name: MAKENZIE DESAI Encounter No: [id number] : 07-23-1950 Primary Insurance: MEDICARE PART A ONLY Anticipated DC Date: Planned Disposition: Mcfp Facility External Planned Provider: [facility], MEDICARE REHAB BED DCP follow-up note: CM RECEIVED CALL FROM SYD OF [facility] WHO ADVISED THEY CANNOT MEET PT'S NEEDS. CM NOTIFIED PT IN ROOM WHO ASKED CM TO CALL [facility] AND ASK THEM TO HANG ON TO HIS WHEELCHAIR HE PAID SOMEONE TO BRING IT THERE THINKING THEY WERE ACCEPTING HIM. PT WILL PAY SOMEONE TO PICK IT UP. CM CALLED AND NOTIFIED SYD WHO INFORMED CM THAT SHE HAS NOT SEEN PT'S WHEELCHAIR AND PT NEEDS TO FOLLOW UP WITH WHOMEVER HE PAID FOR DELIVERY. CM NOTIFIED PT. CM ENCOURAGED PT TO CONTINUE HIS COOPERATION WITH THERAPY SERVICES, PT STATES HE WILL. CM FAXED REFERRAL TO [facility] [place], . CM NOTIFIED [facility] REFERRAL. CM WAITING ADMISSION DETERMINATION FROM [facility]. CAMILA GONZALEZ, CASE MANAGEMENT DCP- Discharge Planning Updated by [id number]: Camila Gonzalez on 03/15/19 8:[address] Patient Name: MAKENZIE DESAI Encounter No: [id number] : 07-23-1950 Primary Insurance: MEDICARE PART A ONLY Anticipated DC Date: Planned Disposition: Mcfp Facility External Planned Provider: [facility], MEDICARE REHAB BED Discharge Planning Comments: CM REVIEWED CHART, THERE ARE NOT THERAPY NOTES FROM THE WEEKEND. CM FAXED UPDATE TO [facility] AT [phone]. CM WAITING ADMISSION DETERMINATION FROM [facility]. CM WAITING PT'S PARTICIPATION WITH THERAPY SERVICES. [facility] [employer] [facility]: Camila Gonzalez DCP- Discharge Planning Updated by [email or web address]: Camila Gonzalez on 03/12/19 2:[address] Patient Name: MAKENZIE DESAI Encounter No: [id number] : 07-23-1950 Primary Insurance: MEDICARE PART A ONLY Anticipated DC Date: Planned Disposition: Mcfp Facility External Planned Provider: [facility], MEDICARE REHAB BED Discharge Planning Comments: CM REVIEWED CHART NOTES, THERAPY INDICATED THAT PT HAS REFUSED THERAPY AND THERAPY HAS SIGNED OFF DUE TO REFUSALS. CM SPOKE TO DR. TAPIA AND JACEY PERKINS, OBTAINED NEW THERAPY ORDERS. CM MET WITH PT ROOM WHO ASSURED CM HE WILL PARTICIPATE WITH THERAPY AND UNDERSTANDS HE NEEDS TO FOR REHAB PLACEMENT. CM FAXED UPDATE TO [facility] AT [phone]. CM WAITING ADMISSION DETERMINATION FROM [facility]. CM WAITING PT'S PARTICIPATION WITH THERAPY SERVICES. [facility] [employer]s: Camila Gonzalez DCP- Discharge Planning Updated by [id number]: Camila Gonzalez on 03/11/19 1:[address] Patient Name: MAKENZIE DESAI Encounter No: [id number] : 07-23-1950 Primary Insurance: MEDICARE PART A ONLY Anticipated DC Date: Planned Disposition: Mcfp Facility External Planned Provider:[facility], MEDICARE REHAB BED Discharge Planning Comments: CM RECEIVED CALL FROM CHIDI OF [facility], , WHO HAS RECEIVED REFERRAL AND THEY ARE SCREENING FOR SKILLED ADMISSION. [facility] REPORTS PT MUST PARTICIPATE WITH THERAPY AND MUST PROVIDE HIS MEDICARE NUMBER. CM REVIEWED CHART NOTES, THERAPY INDICATED THAT PT HAS REFUSED THERAPY AND THERAPY HAS SIGNED OFF DUE TO REFUSALS. CM MET WITH PT ROOM WHO INSISTS AGAIN THAT HE DID NOT REFUSE, CM EXPLAINED THAT IF PT STATES HE WILL DO SOMTHING AND DOES NOT TAKE PHYSICAL ACTION IN EFFORT TO PARTICIPATE, HE IS INDEED REFUSING. CM EDUCATED PT THAT [facility] NEEDS HIM TO PARTICIPATE WITH ANY OFFERED THERAPY. PT ASSURED CM HE WILL PARTICIPATE WITH THERAPY. CM EXPLAINED THAT PT WILL NEED MEDICARE NUMBER. PT ASKED FOR MEDICARE CONTACT PHONE NUMBER HE DOES NOT HAVE A MEDICARE CARD AND NEVER RECEIVED IT BUT INSISTED HE DOES HAVE MEDICARE. PT LATER CALLED CM AND PROVIDED MEDICARE [id number], [id number]. CM FAXED THIS NUMBER WITH UPDATE TO [facility] AT [phone]. CM WAITING ADMISSION DETERMINATION FROM [facility]. CM WAITING PT'S PARTICIPATION WITH THERAPY SERVICES. [facility]p Strategic Partnerships: Camila Gonzalez DCP- Discharge Planning Updated by [id number]: Camila Gonzalez on 03/09/19 3:[address] Patient Name: MAKENZIE DESAI Admission Status: ER Accout number: [id number] Admission Date: 03-07-2019 : 07-23-1950 Admission Diagnosis: Attending: EVONNE TAPIA Current LOS: 2 Anticipated DC Date: Planned Disposition: Mcfp Facility Primary Insurance: MEDICARE PART A ONLY PLANNED EXTERNAL PROVIDER: [facility], MEDICARE REHAB BED Discharge Planning Comments: CM MET WITH PT IN ROOM TO DISCUSS DISCHARGE PLANNING AND NEEDS. PT REPORTS LIVING AT HOME INDEPENDENTLY WITH A FRIEND WHO WAS SPITTING THE RENT WITH HIM AT [facility]. THE FRIEND LEFT AND STOLE A "BUNCH OF STUFF" FROM PT. PT STATES HE WILL HAVE TO WORK OUT A NEW LIVING ARRANGEMENT WHEN HE IS ABLE TO WALK AND TAKE CARE OF HIMSELF AGAIN. PT HAS POWER WHEELCHAIR AND WALKER FROM [facility]. PT HAS NO OUTSIDE SERVICES ASSISTING IN THE HOME. CM DISCUSSED AVAILABILITY OF HOME HEALTH, REHAB SERVICES AND MEDICAL EQUIPMENT. PT STATES HE NEEDS REHAB AND WOULD LIKE TO RETURN TO [facility] OR HAVE REHAB AT [facility] IF DECLINED BY [facility]. CHOICE SIGNED. CM REVIEWED CHART NOTES, THERAPY INDICATED THAT PT HAS REFUSED FOR THE FIRST TWO OFFERED SESSIONS. CM SPOKE TO PT IN ROOM WHO INSISTS THAT HE DID NOT REFUSE, THAT THE THERAPIST ASKED PT TO STAND UP BY THE BED AND PT STATED HE COULD NOT. PT ENCOURAGED TO PARTICIPATE WITH THERAPY EACH TIME IT IS OFFERED AND EXPLAINED IF PT IS ASKING CM TO GET HIM INTO REHAB, PT NEEDS TO DO HIS PART AND PARTICIPATE EACH TIME WITH THERAPY. PT STATES UNDERSTANDING. CM FAXED REHAB REFERRAL TO [facility] AT [phone]. CM TO FOLLOW UP WITH JUAN OF [facility] AT [phone], AFTER [place], TO MAKE HER AWARE OF REHAB REFERRAL. CM WAITING PT'S PARTICIPATION WITH THERAPY SERVICES. Vp Strategic Partnerships: Camila Gonzalez DCPIA - Discharge Planning Initial Assessment Updated by [id number]: Camila Gonzalez on 03/09/19 4:34 pm * Is the patient Alert and Oriented? Yes * How many steps to enter\\exit or inside your home? NONE * PCP DR. BARRERA * [facility]acy [facility] [place] OR [facility], IN [place] * Preadmission Environment Home with Family * ADLs Independent * Equipment Cane Power Chair or Electric Scooter * Other Equipment [facility] IS PROVIDER OF EQUIPMENT * List name and contact numbers for known caregivers / representatives who currently or will assist patient after discharge: LILIAM DESAI, EX , * Verbal permission to speak to the caregivers and representatives has been obtained from the patient. N/A * Community resources currently utilized None * Please name any agencies selected above. NONE * Additional services required to return to the preadmission environment? Yes * Can the patient safely return to the preadmission environment? Yes * Has this patient been hospitalized within the prior 30 days at any hospital? No External Providers External Provider: [facility] Next Contact Date: 03/15/2019 Service Request Date: Service Type: Resolution: Reviewer: Comments: Coverage Notice Reviewer: [email or web address] Christian oGnzalez Notice Issued Date-Time: 03/09/2019 16:05 Notice Type: Patient Choice Letter Notice Delivered To: Patient Relationship to Patient: Ski Patrol Director Name: Delivery Method: HAND - Hand Delivered Colette Days: Prior Verbal Notification: Recipient Understood Notice: Yes Recipient Signature: Yes Med Rec Note Co-signed by Attending: Coverage Notice Comment: [place] Reviewer: [id number] Christian Gonzalez Notice Issued Date-Time: 03/15/2019 16:30 Notice Type: Patient Choice Letter Notice Delivered To: Patient Relationship to Patient: Ski Patrol Director Name: Delivery Method: HAND - Hand Delivered Colette Days: Prior Verbal Notification: Recipient Understood Notice: Yes Recipient Signature: Yes Med Rec Note Co-signed by Attending: Coverage Notice Comment: ANY [place] [facility] FACLITY. Last DP export: 03/15/19 3:56 Patient Name: MAKENZIE DESAI Page [id number] at 1120 All edits/amendments must be made on the electronic document DICTATION DATE: 03/18/191119 SHUTTLE HAND: OSMEL 03/18/191119 RPT#: [id number] DC DATE: STATUS: ADM IN [facility] [address] [place] [address] END OF REPORT
--- NOTE | 2019-03-18 11:54 | NUR ---
PT WAS SCREAMING FOR ATTENTION THIS AM WITHOUT PUSHING THE CALL LIGHT. A YOUTH OFFICER AND A NURSE WENT INTO THE ROOM AND THE PT SCREAMED AT BOTH OF THEM FOR MULTIPLE REASONS. THIS NURSE WENT TO THE DOOR WAY TO GOWN AND GLOVE WITH THE PTS MEDICINE. 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 THE PATIENT WAS UPSET ABOUT QUIET A FEW THINGS. THIS NURSE AND A DIFFERENT YOUTH OFFICER GAVE THE PATIENT A [facility] BED BATH AND CHANGED HIS SHEETS, ADJUSTED HIM IN THE BED. THE PT WAS GIVEN PAIN MEDS PER [facility] AND A PRN BREATHING TREATMENT. THE PATIENT SEEMS TO BE SATISFIED AT THE MOMENT .
--- NOTE | 2019-03-18 11:58 | MORECARE ---
CASE MANAGEMENT DISCHARGE SUMMARY PATIENT: MAKENZIE DESAI UNIT: [id number] ADM DATE: 03/07/19 AGE: 68 : [birth year] SEX: M ROOM/BED: D.2102 AUTHOR: СЕРГЕЙ,DOC PHYSICIAN: REFERRING PHYSICIAN: EVONNE TAPIA MD DATE OF SERVICE: 03/18/19 Discharge Plan Patient Name: MAKENZIE DESAI Facility: [facility]:[place] : 07/23/1950 Planned Disposition: Halfway Facility Anticipated Discharge Date: 03/18/19 Discharge Date: Expected LOS: 11 Initial Reviewer: [id number] Initial Review Date: 03/09/2019 Generated: 03/18/19 12:57 pm DCP- Discharge Planning Updated by [id number]: Camila Gonzalez on 03/15/19 3:[address] Patient Name: MAKENZIE DESAI Encounter No: [id number] : 07-23-1950 Primary Insurance: MEDICARE PART A ONLY Anticipated DC Date: Planned Disposition: Halfway Facility External Planned Provider: [facility]EPTING [facility], MEDICARE REHAB BED DCP follow-up note: CM RECEIVED CALL FROM [facility] WHO DECLINED PT STATING THAT PT HAS BEEN THERE AND HE WAS NOT COOPERATIVE WITH THERAPY AND HIS BEHAVIOR TOWARD STAFF WAS NOT GOOD. CM SPOKE TO PT AND GAVE HIM THE NEWS. PT STATES HE NEEDS SOMEWHERE TO GO AND ASKED CM TO CHECK WITH ANY FACILITY IN [place] THAT MAY BE WILLING TO TAKE HIM. CHOICE SIGNED FOR ANY [facility]AIL FACILITY IN [place]. CM NOTIFIED [facility] AT [phone] AND FAXED REFERRAL TO [facility] AND [facility] AT [phone]. CM FAXED REFERRAL TO [facility] AT [phone]. PT HAS BEEN DECLINED PLACEMENT BY [facility] AND [facility]. CM WAITING ON ADMISSION DETERMINATIONS FROM [facility], [facility] AND [facility]. Camila Gonzalez, CASE MANAGEMENT DCP- Discharge Planning Updated by [id number]: Camila Gonzalez on 03/15/19 1:[address] Patient Name: MAKENZIE DESAI Encounter No: [id number] : 07-23-1950 Primary Insurance: MEDICARE PART A ONLY Anticipated DC Date: Planned Disposition: Halfway Facility External Planned Provider: [facility], MEDICARE REHAB BED DCP follow-up note: CM RECEIVED CALL FROM SYD OF [facility] WHO ADVISED THEY CANNOT MEET PT'S NEEDS. CM NOTIFIED PT IN ROOM WHO ASKED CM TO CALL [facility] AND ASK THEM TO HANG ON TO HIS WHEELCHAIR HE PAID SOMEONE TO BRING IT THERE THINKING THEY WERE ACCEPTING HIM. PT WILL PAY SOMEONE TO PICK IT UP. CM CALLED AND NOTIFIED SYD WHO INFORMED CM THAT SHE HAS NOT SEEN PT'S WHEELCHAIR AND PT NEEDS TO FOLLOW UP WITH WHOMEVER HE PAID FOR DELIVERY. CM NOTIFIED PT. CM ENCOURAGED PT TO CONTINUE HIS COOPERATION WITH THERAPY SERVICES, PT STATES HE WILL. CM FAXED REFERRAL TO [facility] [place], . CM NOTIFIED [facility] OF [facility] OF REFERRAL. CM WAITING ADMISSION DETERMINATION FROM [facility]. CAMILA GONZALEZ, CASE MANAGEMENT DCP- Discharge Planning Updated by [id number]: Camila Gonzalez on 03/15/19 8:[address] Patient Name: MAKENZIE DESAI Encounter No: [id number] : 07-23-1950 Primary Insurance: MEDICARE PART A ONLY Anticipated DC Date: Planned Disposition: Halfway Facility External Planned Provider: [facility], MEDICARE REHAB BED Discharge Planning Comments: CM REVIEWED CHART, THERE ARE NOT THERAPY NOTES FROM THE WEEKEND. CM FAXED UPDATE TO [facility] AT [phone]. CM WAITING ADMISSION DETERMINATION FROM [facility]. CM WAITING PT'S PARTICIPATION WITH THERAPY SERVICES. Adjunct Faculty For Medical Terminology: Camila Gonzalez DCP- Discharge Planning Updated by [id number]: Camila Gonzalez on 03/12/19 2:[address] Patient Name: MAKENZIE DESAI Encounter No: [id number] : 07-23-1950 Primary Insurance: MEDICARE PART A ONLY Anticipated DC Date: Planned Disposition: Halfway Facility External Planned Provider: [facility], MEDICARE REHAB BED Discharge Planning Comments: CM REVIEWED CHART NOTES, THERAPY INDICATED THAT PT HAS REFUSED THERAPY AND THERAPY HAS SIGNED OFF DUE TO REFUSALS. CM SPOKE TO DR. TAPIA AND JACEY PERKINS, OBTAINED NEW THERAPY ORDERS. CM MET WITH PT ROOM WHO ASSURED CM HE WILL PARTICIPATE WITH THERAPY AND UNDERSTANDS HE NEEDS TO FOR REHAB PLACEMENT. CM FAXED UPDATE TO [facility] AT [phone]. CM WAITING ADMISSION DETERMINATION FROM [facility]. CM WAITING PT'S PARTICIPATION WITH THERAPY SERVICES. Adjunct Faculty For Medical Terminology: Camila Gonzalez DCP- Discharge Planning Updated by [id number]: Camila Gonzalez on 03/11/19 1:[address] Patient Name: MAKENZIE DESAI Encounter No: [id number] : 07-23-1950 Primary Insurance: MEDICARE PART A ONLY Anticipated DC Date: Planned Disposition: Halfway Facility External Planned Provider:[facility], MEDICARE REHAB BED Discharge Planning Comments: CM RECEIVED CALL FROM CHIDI OF [facility], , WHO HAS RECEIVED REFERRAL AND THEY ARE SCREENING FOR SKILLED ADMISSION. CHIDI REPORTS PT MUST PARTICIPATE WITH THERAPY AND MUST PROVIDE HIS MEDICARE NUMBER. CM REVIEWED CHART NOTES, THERAPY INDICATED THAT PT HAS REFUSED THERAPY AND THERAPY HAS SIGNED OFF DUE TO REFUSALS. CM MET WITH PT ROOM WHO INSISTS AGAIN THAT HE DID NOT REFUSE, CM EXPLAINED THAT IF PT STATES HE WILL DO SOMTHING AND DOES NOT TAKE PHYSICAL ACTION IN EFFORT TO PARTICIPATE, HE IS INDEED REFUSING. CM EDUCATED PT THAT [facility] NEEDS HIM TO PARTICIPATE WITH ANY OFFERED THERAPY. PT ASSURED CM HE WILL PARTICIPATE WITH THERAPY. CM EXPLAINED THAT PT WILL NEED MEDICARE NUMBER. PT ASKED FOR MEDICARE CONTACT PHONE NUMBER HE DOES NOT HAVE A MEDICARE CARD AND NEVER RECEIVED IT BUT INSISTED HE DOES HAVE MEDICARE. PT LATER CALLED CM AND PROVIDED MEDICARE [id number], [id number]. CM FAXED THIS NUMBER WITH UPDATE TO [facility] AT [phone]. CM WAITING ADMISSION DETERMINATION FROM [facility]. CM WAITING PT'S PARTICIPATION WITH THERAPY SERVICES. Adjunct Faculty For Medical Terminology: Camila Gonzalez DCP- Discharge Planning Updated by [id number]: Camila Gonzalez on 03/09/19 3:[address] Patient Name: MAKENZIE DESAI Admission Status: ER Accout number: [id number] Admission Date: 03-07-2019 : 07-23-1950 Admission Diagnosis: Attending: EVONNE TAPIA Current LOS: 2 Anticipated DC Date: Planned Disposition: Halfway Facility Primary Insurance: MEDICARE PART A ONLY PLANNED EXTERNAL PROVIDER: [facility], MEDICARE REHAB BED Discharge Planning Comments: CM MET WITH PT IN ROOM TO DISCUSS DISCHARGE PLANNING AND NEEDS. PT REPORTS LIVING AT HOME INDEPENDENTLY WITH A FRIEND WHO WAS SPITTING THE RENT WITH HIM AT [facility]. THE FRIEND LEFT AND STOLE A "BUNCH OF STUFF" FROM PT. PT STATES HE WILL HAVE TO WORK OUT A NEW LIVING ARRANGEMENT WHEN HE IS ABLE TO WALK AND TAKE CARE OF HIMSELF AGAIN. PT HAS POWER WHEELCHAIR AND WALKER FROM [facility]. PT HAS NO OUTSIDE SERVICES ASSISTING IN THE HOME. CM DISCUSSED AVAILABILITY OF HOME HEALTH, REHAB SERVICES AND MEDICAL EQUIPMENT. PT STATES HE NEEDS REHAB AND WOULD LIKE TO RETURN TO [facility] OR HAVE REHAB AT [facility] IF DECLINED BY [facility]. CHOICE SIGNED. CM REVIEWED CHART NOTES, THERAPY INDICATED THAT PT HAS REFUSED FOR THE FIRST TWO OFFERED SESSIONS. CM SPOKE TO PT IN ROOM WHO INSISTS THAT HE DID NOT REFUSE, THAT THE THERAPIST ASKED PT TO STAND UP BY THE BED AND PT STATED HE COULD NOT. PT ENCOURAGED TO PARTICIPATE WITH THERAPY EACH TIME IT IS OFFERED AND EXPLAINED IF PT IS ASKING CM TO GET HIM INTO REHAB, PT NEEDS TO DO HIS PART AND PARTICIPATE EACH TIME WITH THERAPY. PT STATES UNDERSTANDING. CM FAXED REHAB REFERRAL TO [facility] AT [phone]. CM TO FOLLOW UP WITH JUAN OF [facility] AT [phone], AFTER GOLDEN, TO MAKE HER AWARE OF REHAB REFERRAL. CM WAITING PT'S PARTICIPATION WITH THERAPY SERVICES. Adjunct Faculty For Medical Terminology: Camila Gonzalez DCPIA - Discharge Planning Initial Assessment Updated by [id number]: Camila Gonzalez on 03/09/19 4:34 pm * Is the patient Alert and Oriented? Yes * How many steps to enter\\exit or inside your home? NONE * PCP DR. BARRERA * [facility]acy [facility] [place] [facility] IN [place] * Preadmission Environment Home with Family * ADLs Independent * Equipment Cane Power Chair or Electric Scooter * Other Equipment [facility] IS PROVIDER OF EQUIPMENT * List name and contact numbers for known caregivers / representatives who currently or will assist patient after discharge: LILIAM DESAI, EX , * Verbal permission to speak to the caregivers and representatives has been obtained from the patient. N/A * Community resources currently utilized None * Please name any agencies selected above. NONE * Additional services required to return to the preadmission environment? Yes * Can the patient safely return to the preadmission environment? Yes * Has this patient been hospitalized within the prior 30 days at any hospital? No Coverage Notice Reviewer: [id number] Gonzalez Notice Issued Date-Time: 03/09/2019 16:05 Notice Type: Patient Choice Letter Notice Delivered To: Patient Relationship to Patient: Loft Patternmaker Name: Delivery Method: HAND - Hand Delivered Colette Days: Prior Verbal Notification: Recipient Understood Notice: Yes Recipient Signature: Yes Med Rec Note Co-signed by Attending: Coverage Notice Comment: [facility] Reviewer: RAKESH Gonzalez Notice Issued Date-Time: 03/15/2019 16:30 Notice Type: Patient Choice Letter Notice Delivered To: Patient Relationship to Patient: Loft Patternmaker Name: Delivery Method: HAND - Hand Delivered Colette Days: Prior Verbal Notification: Recipient Understood Notice: Yes Recipient Signature: Yes Med Rec Note Co-signed by Attending: Coverage Notice Comment: ANY [place] JAIL FACLITY. Reviewer: [id number] Gonzalez Notice Issued Date-Time: 03/18/2019 11:45 Notice Type: IM Discharge Notice Notice Delivered To: Patient Relationship to Patient: Loft Patternmaker Name: Delivery Method: HAND - Hand Delivered Colette Days: Prior Verbal Notification: Recipient Understood Notice: Yes Recipient Signature: Yes Med Rec Note Co-signed by Attending: Coverage Notice Comment: Last DP export: 03/18/19 10:20 am Patient Name: MAKENZIE DESAI Page [id number] at 1158 All edits/amendments must be made on the electronic document DICTATION DATE: 03/18/19 1157 POWER CLEANER OPERATOR: OSMEL 03/18/19 1157 RPT#: [id number] DC DATE: STATUS: ADM IN [facility] [address] [place] [address] END OF REPORT
--- NOTE | 2019-03-18 12:05 | MORECARE ---
CASE MANAGEMENT DISCHARGE SUMMARY PATIENT: MAKENZIE DESAI UNIT: [id number] ADM DATE: 03/07/19 AGE: 68 : [birth year] SEX: M ROOM/BED: D.2102 AUTHOR: СЕРГЕЙ,DOC PHYSICIAN: REFERRING PHYSICIAN: EVONNE TAPIA MD DATE OF SERVICE: 03/18/19 Discharge Plan Patient Name: MAKENZIE DESAI Facility: [facility]:[place] : 07/23/1950 Planned Disposition: Longterm Facility Anticipated Discharge Date: 03/18/19 Discharge Date: Expected LOS: 11 Initial Reviewer: [id number] Initial Review Date: 03/09/2019 Generated: 03/18/19 1:04 pm Comments DCP- Discharge Planning Updated by [id number]: Camila Gonzalez on 03/18/19 10:[address] Patient Name: MAKENZIE DESAI Encounter No: [id number] : 07-23-1950 Primary Insurance: MEDICARE PART A ONLY Anticipated DC Date: 03-18-2019 Planned Disposition: Longterm Facility External Planned Provider: [facility], MEDICARE REHAB BED DCP follow-up note: CM FAXED UPDATE TO [facility] AT [phone]. CM RECEIVED CALL FROM FELICITA OF [place] WHO INFORMED CM THAT THEY WILL ACCEPT PT TODAY AND SHE WILL COME TO HOSPITAL TO HAVE PT COMPLETE ADMISSION PAPERWORK FOR ADMIT TODAY. CM NOTIIFED PT WHO IS IN AGREEMENT WITH PLAN OF DISCHARGE TO [facility]. IMPORTANT MESSAGE FROM MEDICARE PROVIDED AND EXPLAINED. CM NOTIFIED JACEY ALEJANDRE. FELICITA [facility] WILL COME AND COMPLETE ADMISSION PAPERWORK WITH PT TODAY. FOR DISCHARGE AFTER PT SIGNS ADMISSION PAPERWORK, FAX DISCHARGE INFORMATION TO [facility] AT [phone]. NURSE REPORT TO BE CALLED TO [facility] AT [phone]. [facility] TO ARRANGE VAN SIZER HAND. Camila Gonzalez CASE MANAGEMENT DCP- Discharge Planning Updated by [id number]: Camila Gonzalez on 03/15/19 3:[address] Patient Name: MAKENZIE DESAI Encounter No: [id number] : 07-23-1950 Primary Insurance: MEDICARE PART A ONLY Anticipated DC Date: Planned Disposition: Longterm Facility External Planned Provider: [facility], MEDICARE REHAB BED DCP follow-up note: CM RECEIVED CALL FROM [facility] WHO DECLINED PT STATING THAT PT HAS BEEN THERE AND HE WAS NOT COOPERATIVE WITH THERAPY AND HIS BEHAVIOR TOWARD STAFF WAS NOT GOOD. CM SPOKE TO PT AND GAVE HIM THE NEWS. PT STATES HE NEEDS SOMEWHERE TO GO AND ASKED CM TO CHECK WITH ANY FACILITY IN [place] THAT MAY BE WILLING TO TAKE HIM. CHOICE SIGNED FOR ANY [facility] FACILITY IN [place]. CM NOTIFIED [facility] AT [phone] AND FAXED REFERRAL TO [facility] [place] [facility] AT [phone]. CM FAXED REFERRAL TO [facility] AT [phone]. PT HAS BEEN DECLINED PLACEMENT BY [facility] AND [facility]. CM WAITING ON ADMISSION DETERMINATIONS FROM [facility], [facility] AND [facility]. Camila Gonzalez, CASE MANAGEMENT DCP- Discharge Planning Updated by [id number]: Camila Gonzalez on 03/15/19 1:[address] Patient Name: MAKENZIE DESAI Encounter No: [id number] : 07-23-1950 Primary Insurance: MEDICARE PART A ONLY Anticipated DC Date: Planned Disposition: Longterm Facility External Planned Provider: [facility], MEDICARE REHAB BED DCP follow-up note: CM RECEIVED CALL FROM SYD OF [facility] WHO ADVISED THEY CANNOT MEET PT'S NEEDS. CM NOTIFIED PT IN ROOM WHO ASKED CM TO CALL [facility] AND ASK THEM TO HANG ON TO HIS WHEELCHAIR HE PAID SOMEONE TO BRING IT THERE THINKING THEY WERE ACCEPTING HIM. PT WILL PAY SOMEONE TO PICK IT UP. CM CALLED AND NOTIFIED SYD WHO INFORMED CM THAT SHE HAS NOT SEEN PT'S WHEELCHAIR AND PT NEEDS TO FOLLOW UP WITH WHOMEVER HE PAID FOR DELIVERY. CM NOTIFIED PT. CM ENCOURAGED PT TO CONTINUE HIS COOPERATION WITH THERAPY SERVICES, PT STATES HE WILL. CM FAXED REFERRAL TO [facility], . CM NOTIFIED [facility] OF REFERRAL. CM WAITING ADMISSION DETERMINATION FROM [facility]. CAMILA GONZALEZ, CASE MANAGEMENT DCP- Discharge Planning Updated by [id number]: Camila Gonzalez on 03/15/19 8:[address] Patient Name: MAKENZIE DESAI Encounter No: [id number] : 07-23-1950 Primary Insurance: MEDICARE PART A ONLY Anticipated DC Date: Planned Disposition: Longterm Facility External Planned Provider: [facility], MEDICARE REHAB BED Discharge Planning Comments: CM REVIEWED CHART, THERE ARE NOT THERAPY NOTES FROM THE WEEKEND. CM FAXED UPDATE TO [facility] AT [phone]. CM WAITING ADMISSION DETERMINATION FROM [facility]. CM WAITING PT'S PARTICIPATION WITH THERAPY SERVICES. Event Promotions Coordinator: Camila Gonzalez DCP- Discharge Planning Updated by [id number]: Camila Gonzalez on 03/12/19 2:[address] Patient Name: MAKENZIE DESAI Encounter No: [id number] : 07-23-1950 Primary Insurance: MEDICARE PART A ONLY Anticipated DC Date: Planned Disposition: Longterm Facility External Planned Provider: [facility], MEDICARE REHAB BED Discharge Planning Comments: CM REVIEWED CHART NOTES, THERAPY INDICATED THAT PT HAS REFUSED THERAPY AND THERAPY HAS SIGNED OFF DUE TO REFUSALS. CM SPOKE TO DR. TAPIA AND JACEY PERKINS, OBTAINED NEW THERAPY ORDERS. CM MET WITH PT ROOM WHO ASSURED CM HE WILL PARTICIPATE WITH THERAPY AND UNDERSTANDS HE NEEDS TO FOR REHAB PLACEMENT. CM FAXED UPDATE TO [facility] AT [phone]. CM WAITING ADMISSION DETERMINATION FROM [facility]. CM WAITING PT'S PARTICIPATION WITH THERAPY SERVICES. Event Promotions Coordinator: Camila Gonzalez DCP- Discharge Planning Updated by [id number]: Camila Gonzalez on 03/11/19 1:[address] Patient Name: MAKENZIE DESAI Encounter No: [id number] : 07-23-1950 Primary Insurance: MEDICARE PART A ONLY Anticipated DC Date: Planned Disposition: Longterm Facility External Planned Provider:[facility], MEDICARE REHAB BED Discharge Planning Comments: DEXTER RECEIVED CALL FROM CHIDI OF [facility], , WHO HAS RECEIVED REFERRAL AND THEY ARE SCREENING FOR SKILLED ADMISSION. CHIDI REPORTS PT MUST PARTICIPATE WITH THERAPY AND MUST PROVIDE HIS MEDICARE NUMBER. DEXTER REVIEWED CHART NOTES, THERAPY INDICATED THAT PT HAS REFUSED THERAPY AND THERAPY HAS SIGNED OFF DUE TO REFUSALS. DEXTER MET WITH PT ROOM WHO INSISTS AGAIN THAT HE DID NOT REFUSE, CM EXPLAINED THAT IF PT STATES HE WILL DO SOMTHING AND DOES NOT TAKE PHYSICAL ACTION IN EFFORT TO PARTICIPATE, HE IS INDEED REFUSING. CM EDUCATED PT THAT [facility] NEEDS HIM TO PARTICIPATE WITH ANY OFFERED THERAPY. PT ASSURED CM HE WILL PARTICIPATE WITH THERAPY. CM EXPLAINED THAT PT WILL NEED MEDICARE NUMBER. PT ASKED FOR MEDICARE CONTACT PHONE NUMBER HE DOES NOT HAVE A MEDICARE CARD AND NEVER RECEIVED IT BUT INSISTED HE DOES HAVE MEDICARE. PT LATER CALLED CM AND PROVIDED MEDICARE [id number], [id number]. CM FAXED THIS NUMBER WITH UPDATE TO [facility] AT [phone]. CM WAITING ADMISSION DETERMINATION FROM [facility]. CM WAITING PT'S PARTICIPATION WITH THERAPY SERVICES. Event Promotions Coordinator: Camila Gonzalez DCP- Discharge Planning Updated by [id number]: Camila Gonzalez on 03/09/19 3:[address] Patient Name: MAKENZIE DESAI Admission Status: ER Accout number: [id number] Admission Date: 03-07-2019 : 07-23-1950 Admission Diagnosis: Attending: EVONNE TAPIA Current LOS: 2 Anticipated DC Date: Planned Disposition: Longterm Facility Primary Insurance: MEDICARE PART A ONLY PLANNED EXTERNAL PROVIDER: [facility], MEDICARE REHAB BED Discharge Planning Comments: CM MET WITH PT IN ROOM TO DISCUSS DISCHARGE PLANNING AND NEEDS. PT REPORTS LIVING AT HOME INDEPENDENTLY WITH A FRIEND WHO WAS SPITTING THE RENT WITH HIM AT [facility]. THE FRIEND LEFT AND STOLE A "BUNCH OF STUFF" FROM PT. PT STATES HE WILL HAVE TO WORK OUT A NEW LIVING ARRANGEMENT WHEN HE IS ABLE TO WALK AND TAKE CARE OF HIMSELF AGAIN. PT HAS POWER WHEELCHAIR AND WALKER FROM [facility]. PT HAS NO OUTSIDE SERVICES ASSISTING IN THE HOME. CM DISCUSSED AVAILABILITY OF HOME HEALTH, REHAB SERVICES AND MEDICAL EQUIPMENT. PT STATES HE NEEDS REHAB AND WOULD LIKE TO RETURN TO [facility] OR HAVE REHAB AT [facility] IF DECLINED BY [facility]. CHOICE SIGNED. CM REVIEWED CHART NOTES, THERAPY INDICATED THAT PT HAS REFUSED FOR THE FIRST TWO OFFERED SESSIONS. CM SPOKE TO PT IN ROOM WHO INSISTS THAT HE DID NOT REFUSE, THAT THE THERAPIST ASKED PT TO STAND UP BY THE BED AND PT STATED HE COULD NOT. PT ENCOURAGED TO PARTICIPATE WITH THERAPY EACH TIME IT IS OFFERED AND EXPLAINED IF PT IS ASKING CM TO GET HIM INTO REHAB, PT NEEDS TO DO HIS PART AND PARTICIPATE EACH TIME WITH THERAPY. PT STATES UNDERSTANDING. CM FAXED REHAB REFERRAL TO [facility] AT [phone]. CM TO FOLLOW UP WITH JUAN OF [facility] AT [phone], AFTER GOLDEN, TO MAKE HER AWARE OF REHAB REFERRAL. CM WAITING PT'S PARTICIPATION WITH THERAPY SERVICES. Event Promotions Coordinator: Camila Gonzalez DCPIA - Discharge Planning Initial Assessment Updated by [id number]: Camila Gonzalez on 03/09/19 4:34 pm * Is the patient Alert and Oriented? Yes * How many steps to enter\\exit or inside your home? NONE * PCP DR. BARRERA * [facility]acy [facility] [place] OR [facility] IN [place] * Preadmission Environment Home with Family * ADLs Independent * Equipment Cane Power Chair or Electric Scooter * Other Equipment [facility] IS PROVIDER OF EQUIPMENT * List name and contact numbers for known caregivers / representatives who currently or will assist patient after discharge: LILIAM DESAI, EX , * Verbal permission to speak to the caregivers and representatives has been obtained from the patient. N/A * Community resources currently utilized None * Please name any agencies selected above. NONE * Additional services required to return to the preadmission environment? Yes * Can the patient safely return to the preadmission environment? Yes * Has this patient been hospitalized within the prior 30 days at any hospital? No Coverage Notice Reviewer: [id number] Gonzalez Notice Issued Date-Time: 03/18/2019 11:45 Notice Type: IM Discharge Notice Notice Delivered To: Patient Relationship to Patient: Maker Up Folding Name: Delivery Method: HAND - Hand Delivered Colette Days: Prior Verbal Notification: Recipient Understood Notice: Yes Recipient Signature: Yes Med Rec Note Co-signed by Attending: Coverage Notice Comment: Reviewer: RAKESH Gonzalez Notice Issued Date-Time: 03/15/2019 16:30 Notice Type: Patient Choice Letter Notice Delivered To: Patient Relationship to Patient: Maker Up Folding Name: Delivery Method: HAND - Hand Delivered Colette Days: Prior Verbal Notification: Recipient Understood Notice: Yes Recipient Signature: Yes Med Rec Note Co-signed by Attending: Coverage Notice Comment: ANY [place] [facility] FACLITY. Reviewer: [id number] Gonzalez Notice Issued Date-Time: 03/09/2019 16:05 Notice Type: Patient Choice Letter Notice Delivered To: Patient Relationship to Patient: Maker Up Folding Name: Delivery Method: HAND - Hand Delivered Colette Days: Prior Verbal Notification: Recipient Understood Notice: Yes Recipient Signature: Yes Med Rec Note Co-signed by Attending: Coverage Notice Comment: [facility] Last DP export: 03/18/19 10:58 am Patient Name: MAKENZIE DESAI Page 41218 at 1205 All edits/amendments must be made on the electronic document DICTATION DATE: 03/18/191203 INTERIOR SYSTEMS CARPENTER: OSMEL 03/18/19 1204 RPT#: [id number] DC DATE: STATUS: ADM IN [facility] [address] [place] [address] END OF REPORT
[2019-03-18] MEDS ORDERED: BETAPACE 80 MG80 MG PO (12:33)
[2019-03-18] MEDS ORDERED: TESSALON PERLE100 MG PO (12:34)
[2019-03-18] MEDS ORDERED: MIRALAX17 GM PO (12:35)
[2019-03-18] MEDS ORDERED: PULMICORT0.5 MG/21 UPD (12:35)
[2019-03-18] MEDS ORDERED: MUCINEX DM ER1 EAC1 PO (12:35)
[2019-03-18] MEDS ORDERED: FLUTICASONE PRO16 GM NASAL (12:35)
[2019-03-18] MEDS ORDERED: SINGULAIR10 MG PO (12:35)
[2019-03-18] MEDS ORDERED: BUMEX2 MG PO (12:37)
--- NOTE | 2019-03-18 13:38 | MORECARE ---
CASE MANAGEMENT DISCHARGE SUMMARY PATIENT: MAKENZIE DESAI UNIT: [id number] ADM DATE: 03/07/19 AGE: 68 : [birth year] SEX: M ROOM/BED: D.2102 AUTHOR: СЕРГЕЙ,DOC PHYSICIAN: REFERRING PHYSICIAN: EVONNE TAPIA MD DATE OF SERVICE: 03/18/19 Discharge Plan Patient Name: MAKENZIE DESAI Facility: [facility]:[place] : 07/23/1950 Planned Disposition: Snf Facility Anticipated Discharge Date: 03/18/19 Discharge Date: Expected LOS: 11 Initial Reviewer: [id number] Initial Review Date: 03/09/2019 Generated: 03/18/19 2:38 pm Comments DCP- Discharge Planning Updated by [email or web address]: Camila Gonzalez on 03/18/19 12:[address] Patient Name: MAKENZIE DESAI Encounter No: [id number] : 07-23-1950 Primary Insurance: MEDICARE PART A ONLY Anticipated DC Date: 03-18-2019 Planned Disposition: Snf Facility External Planned Provider: [facility], MEDICARE REHAB BED DCP follow-up note: CM FAXED UPDATE TO [facility] AT [phone]. CM RECEIVED CALL FROM FELICITA [facility]Y [place] WHO INFORMED CM THAT THEY WILL ACCEPT PT TODAY AND SHE WILL COME TO HOSPITAL TO HAVE PT COMPLETE ADMISSION PAPERWORK FOR ADMIT TODAY. CM NOTIIFED PT WHO IS IN AGREEMENT WITH PLAN OF DISCHARGE TO [facility]. IMPORTANT MESSAGE FROM MEDICARE PROVIDED AND EXPLAINED. CM NOTIFIED JACEY ALEJANDRE. FELICITA [facility] [place] WILL COME AND COMPLETE ADMISSION PAPERWORK WITH PT TODAY. FOR DISCHARGE AFTER PT SIGNS ADMISSION PAPERWORK, FAX DISCHARGE INFORMATION TO [facility] AT [phone]. NURSE REPORT TO BE CALLED TO [facility] AT [phone]. [facility] TO ARRANGE VAN LITHOPLATE MAKER. Camila Gonzalez, CASE MANAGEMENT Appended by Camila Gonzalez on 03/18/2019 13:30 OVERHEAD CLEANER MAINTAINER: CM RECEIVED CALL FROM [facility], THEY NEED INCOME VERIFICATION FROM PT. CM MET WITH PT IN ROOM WITH FELICITA ON SPEAKER PHONE. PT REPORTS INCOME OF $1301 FROM [place] AND $489 SOCIAL SECURITY MONTHLY. PT DOES NOT HAVE BANK ACCOUNT, JUST GOVERNMENT BENEFITS CARD. FELICITA STATES THEY PLAN TO ACCEPT TODAY AND SHE WILL COME AND DO ADMISSION PAPERWORK TODAY; FELICITA ADVISED PT TO NOT SPEAND ANY MONEY FROM HIS BANK ACCOUNT FROM THIS POINT FORWARD. PT REPORTS UNDERSTANDING. [employer]AR[employer]EWABLE [employer] SALES NURSE NOTIFIED. FELICITA OF [place] WILL COME AND COMPLETE ADMISSION PAPERWORK WITH PT TODAY. FOR DISCHARGE AFTER PT SIGNS ADMISSION PAPERWORK, FAX DISCHARGE INFORMATION TO [facility] AT [phone]. NURSE REPORT TO BE CALLED TO [facility] AT [phone]. [facility] TO ARRANGE VAN LITHOPLATE MAKER. Camila Gonzalez CASE MANAGEMENT DCP- Discharge Planning Updated by [email or web address]: Camila Gonzalez on 03/15/19 3:[address] Patient Name: MAKENZIE DESAI Encounter No: [id number] : 07-23-1950 Primary Insurance: MEDICARE PART A ONLY Anticipated DC Date: Planned Disposition: Snf Facility External Planned Provider: FIRST ACCEPTING [facility], MEDICARE REHAB BED DCP follow-up note: CM RECEIVED CALL FROM MARICRUZ CASEY [facility] WHO DECLINED PT STATING THAT PT HAS BEEN THERE AND HE WAS NOT COOPERATIVE WITH THERAPY AND HIS BEHAVIOR TOWARD STAFF WAS NOT GOOD. CM SPOKE TO PT AND GAVE HIM THE NEWS. PT STATES HE NEEDS SOMEWHERE TO GO AND ASKED CM TO CHECK WITH ANY FACILITY IN [place] THAT MAY BE WILLING TO TAKE HIM. CHOICE SIGNED FOR ANY [facility] FACILITY IN [place]. CM NOTIFIED [facility] AT [phone] AND FAXED REFERRAL TO [facility] FOR [facility] AND [facility] AT [phone]. CM FAXED REFERRAL TO [facility] AT [phone]. PT HAS BEEN DECLINED PLACEMENT BY [facility] AND [facility]. CM WAITING ON ADMISSION DETERMINATIONS FROM [facility], [facility] AND [facility]. Camila Gonzalez CASE MANAGEMENT DCP- Discharge Planning Updated by [id number]: Camila Gonzalez on 03/15/19 1:[address] Patient Name: MAKENZIE DESAI Encounter No: [id number] : 07-23-1950 Primary Insurance: MEDICARE PART A ONLY Anticipated DC Date: Planned Disposition: Snf Facility External Planned Provider: [facility], MEDICARE REHAB BED DCP follow-up note: CM RECEIVED CALL FROM SYD OF [facility] WHO ADVISED THEY CANNOT MEET PT'S NEEDS. CM NOTIFIED PT IN ROOM WHO ASKED CM TO CALL [facility] AND ASK THEM TO HANG ON TO HIS WHEELCHAIR HE PAID SOMEONE TO BRING IT THERE THINKING THEY WERE ACCEPTING HIM. PT WILL PAY SOMEONE TO PICK IT UP. CM CALLED AND NOTIFIED SYD WHO INFORMED CM THAT SHE HAS NOT SEEN PT'S WHEELCHAIR AND PT NEEDS TO FOLLOW UP WITH WHOMEVER HE PAID FOR DELIVERY. CM NOTIFIED PT. CM ENCOURAGED PT TO CONTINUE HIS COOPERATION WITH THERAPY SERVICES, PT STATES HE WILL. CM FAXED REFERRAL TO [facility] [place], . CM NOTIFIED MARICRUZ OF [facility] OF REFERRAL. CM WAITING ADMISSION DETERMINATION FROM [facility]. CAMILA GONZALEZ, CASE MANAGEMENT DCP- Discharge Planning Updated by [id number]: Camila Gonzalez on 03/15/19 8:[address] Patient Name: MAKENZIE DESAI Encounter No: [id number] : 07-23-1950 Primary Insurance: MEDICARE PART A ONLY Anticipated DC Date: Planned Disposition: Snf Facility External Planned Provider: [facility], MEDICARE REHAB BED Discharge Planning Comments: CM REVIEWED CHART, THERE ARE NOT THERAPY NOTES FROM THE WEEKEND. CM FAXED UPDATE TO [facility] AT [phone]. CM WAITING ADMISSION DETERMINATION FROM [facility]. CM WAITING PT'S PARTICIPATION WITH THERAPY SERVICES. Produce Team Lead: Camila Gonzalez DCP- Discharge Planning Updated by [id number]: Camila Gonzalez on 03/12/19 2:[address] Patient Name: MAKENZIE DESAI Encounter No: [id number] : 07-23-1950 Primary Insurance: MEDICARE PART A ONLY Anticipated DC Date: Planned Disposition: Snf Facility External Planned Provider: [facility], MEDICARE REHAB BED Discharge Planning Comments: CM REVIEWED CHART NOTES, THERAPY INDICATED THAT PT HAS REFUSED THERAPY AND THERAPY HAS SIGNED OFF DUE TO REFUSALS. CM SPOKE TO DR. TAPIA AND JACEY PERKINS, OBTAINED NEW THERAPY ORDERS. CM MET WITH PT ROOM WHO ASSURED CM HE WILL PARTICIPATE WITH THERAPY AND UNDERSTANDS HE NEEDS TO FOR REHAB PLACEMENT. CM FAXED UPDATE TO [facility] AT [phone]. CM WAITING ADMISSION DETERMINATION FROM [facility]. CM WAITING PT'S PARTICIPATION WITH THERAPY SERVICES. Produce Team Lead: Camila Gonzalez DCP- Discharge Planning Updated by [id number]: Camila Gonzalez on 03/11/19 1:[address] Patient Name: MAKENZIE DESAI Encounter No: [id number] : 07-23-1950 Primary Insurance: MEDICARE PART A ONLY Anticipated DC Date: Planned Disposition: Snf Facility External Planned Provider:[facility], MEDICARE REHAB BED Discharge Planning Comments: CM RECEIVED CALL FROM CHIDI OF [facility], , WHO HAS RECEIVED REFERRAL AND THEY ARE SCREENING FOR SKILLED ADMISSION. CHIDI REPORTS PT MUST PARTICIPATE WITH THERAPY AND MUST PROVIDE HIS MEDICARE NUMBER. CM REVIEWED CHART NOTES, THERAPY INDICATED THAT PT HAS REFUSED THERAPY AND THERAPY HAS SIGNED OFF DUE TO REFUSALS. CM MET WITH PT ROOM WHO INSISTS AGAIN THAT HE DID NOT REFUSE, CM EXPLAINED THAT IF PT STATES HE WILL DO SOMTHING AND DOES NOT TAKE PHYSICAL ACTION IN EFFORT TO PARTICIPATE, HE IS INDEED REFUSING. CM EDUCATED PT THAT [facility] NEEDS HIM TO PARTICIPATE WITH ANY OFFERED THERAPY. PT ASSURED CM HE WILL PARTICIPATE WITH THERAPY. CM EXPLAINED THAT PT WILL NEED MEDICARE NUMBER. PT ASKED FOR MEDICARE CONTACT PHONE NUMBER HE DOES NOT HAVE A MEDICARE CARD AND NEVER RECEIVED IT BUT INSISTED HE DOES HAVE MEDICARE. PT LATER CALLED CM AND PROVIDED MEDICARE [id number], [id number]. CM FAXED THIS NUMBER WITH UPDATE TO [facility] AT [phone]. CM WAITING ADMISSION DETERMINATION FROM [facility]. CM WAITING PT'S PARTICIPATION WITH THERAPY SERVICES. Produce Team Lead: Camila Gonzalez DCP- Discharge Planning Updated by [id number]: Camila Gonzalez on 03/09/19 3:[address] Patient Name: MAKENZIE DESAI Admission Status: ER Accout number: [id number] Admission Date: 03-07-2019 : 07-23-1950 Admission Diagnosis: Attending: EVONNE TAPIA Current LOS: 2 Anticipated DC Date: Planned Disposition: Snf Facility Primary Insurance: MEDICARE PART A ONLY PLANNED EXTERNAL PROVIDER: [facility], MEDICARE REHAB BED Discharge Planning Comments: CM MET WITH PT IN ROOM TO DISCUSS DISCHARGE PLANNING AND NEEDS. PT REPORTS LIVING AT HOME INDEPENDENTLY WITH A FRIEND WHO WAS SPITTING THE RENT WITH HIM AT [facility]. THE FRIEND LEFT AND STOLE A "BUNCH OF STUFF" FROM PT. PT STATES HE WILL HAVE TO WORK OUT A NEW LIVING ARRANGEMENT WHEN HE IS ABLE TO WALK AND TAKE CARE OF HIMSELF AGAIN. PT HAS POWER WHEELCHAIR AND WALKER FROM [facility]. PT HAS NO OUTSIDE SERVICES ASSISTING IN THE HOME. CM DISCUSSED AVAILABILITY OF HOME HEALTH, REHAB SERVICES AND MEDICAL EQUIPMENT. PT STATES HE NEEDS REHAB AND WOULD LIKE TO RETURN TO [facility] OR HAVE REHAB AT [facility] IF DECLINED BY [facility]. CHOICE SIGNED. CM REVIEWED CHART NOTES, THERAPY INDICATED THAT PT HAS REFUSED FOR THE FIRST TWO OFFERED SESSIONS. CM SPOKE TO PT IN ROOM WHO INSISTS THAT HE DID NOT REFUSE, THAT THE THERAPIST ASKED PT TO STAND UP BY THE BED AND PT STATED HE COULD NOT. PT ENCOURAGED TO PARTICIPATE WITH THERAPY EACH TIME IT IS OFFERED AND EXPLAINED IF PT IS ASKING CM TO GET HIM INTO REHAB, PT NEEDS TO DO HIS PART AND PARTICIPATE EACH TIME WITH THERAPY. PT STATES UNDERSTANDING. CM FAXED REHAB REFERRAL TO [facility] AT [phone]. CM TO FOLLOW UP WITH JUAN OF [facility] AT [phone], AFTER GRANBY, TO MAKE HER AWARE OF REHAB REFERRAL. CM WAITING PT'S PARTICIPATION WITH THERAPY SERVICES. Produce Team Lead: Camila Gonzalez DCPIA - Discharge Planning Initial Assessment Updated by [id number]: Camila Gonzalez on 03/09/19 4:34 pm * Is the patient Alert and Oriented? Yes * How many steps to enter\\exit or inside your home? NONE * PCP DR. BARRERA * Pharmacy [facility] [place] OR [facility] IN [place] * Preadmission Environment Home with Family * ADLs Independent * Equipment Cane Power Chair or Electric Scooter * Other Equipment [place] IS PROVIDER OF EQUIPMENT * List name and contact numbers for known caregivers / representatives who currently or will assist patient after discharge: LILIAM DESAI, EX , * Verbal permission to speak to the caregivers and representatives has been obtained from the patient. N/A * Community resources currently utilized None * Please name any agencies selected above. NONE * Additional services required to return to the preadmission environment? Yes * Can the patient safely return to the preadmission environment? Yes * Has this patient been hospitalized within the prior 30 days at any hospital? No Coverage Notice Reviewer: [email or web address] Christian Gonzalez Notice Issued Date-Time: 03/09/2019 16:05 Notice Type: Patient Choice Letter Notice Delivered To: Patient Relationship to Patient: Patient Escort Name: Delivery Method: HAND - Hand Delivered Colette Days: Prior Verbal Notification: Recipient Understood Notice: Yes Recipient Signature: Yes Med Rec Note Co-signed by Attending: Coverage Notice Comment: [facility] Reviewer: RAKESH Gonzalez Notice Issued Date-Time: 03/15/2019 16:30 Notice Type: Patient Choice Letter Notice Delivered To: Patient Relationship to Patient: Patient Escort Name: Delivery Method: HAND - Hand Delivered Colette Days: Prior Verbal Notification: Recipient Understood Notice: Yes Recipient Signature: Yes Med Rec Note Co-signed by Attending: Coverage Notice Comment: ANY [place] [facility] FACLITY. Reviewer: [email or web address] Gonzalez Notice Issued Date-Time: 03/18/2019 11:45 Notice Type: IM Discharge Notice Notice Delivered To: Patient Relationship to Patient: Patient Escort Name: Delivery Method: HAND - Hand Delivered Colette Days: Prior Verbal Notification: Recipient Understood Notice: Yes Recipient Signature: Yes Med Rec Note Co-signed by Attending: Coverage Notice Comment: Last DP export: 03/18/19 11:05 am Patient Name: MAKENZIE DESAI Page [id number] at 1338 All edits/amendments must be made on the electronic document DICTATION DATE: 03/18/19 1338 EPIC DIRECTOR: OSMEL 03/18/19 1338 RPT#: [id number] DC DATE: STATUS: ADM IN [facility] [address] [place] [address] END OF REPORT
--- NOTE | 2019-03-18 15:23 | MORECARE ---
CASE MANAGEMENT DISCHARGE SUMMARY PATIENT: MAKENZIE DESAI UNIT: [id number] ADM DATE: 03/07/19 AGE: 68 : [birth year] SEX: M ROOM/BED: D.2102 AUTHOR: СЕРГЕЙ,DOC PHYSICIAN: REFERRING PHYSICIAN: EVONNE TAPIA MD DATE OF SERVICE: 03/18/19 Discharge Plan Patient Name: MAKENZIE DESAI Facility: [facility]:[place] : 07/23/1950 Planned Disposition: Long-Term Facility Anticipated Discharge Date: 03/18/19 Discharge Date: Expected LOS: 11 Initial Reviewer: [id number] Initial Review Date: 03/09/2019 Generated: 03/18/19 4:23 pm Comments DCP- Discharge Planning Updated by [id number]: Broderick Yo on 03/18/19 2:[address] Patient Name: MAKENZIE DESAI Encounter No: [id number] : 07-23-1950 Primary Insurance: MEDICARE PART A ONLY Anticipated DC Date: 03-18-2019 Planned Disposition: Long-Term Facility External Planned Provider: [facility], MEDICARE REHAB BED DCP follow-up note: CM FAXED UPDATE TO [facility] AT [phone]. CM RECEIVED CALL FROM FELICITA CASEY WENDEL WHO INFORMED CM THAT THEY WILL ACCEPT PT TODAY AND SHE WILL COME TO HOSPITAL TO HAVE PT COMPLETE ADMISSION PAPERWORK FOR ADMIT TODAY. CM NOTIIFED PT WHO IS IN AGREEMENT WITH PLAN OF DISCHARGE TO [facility]. IMPORTANT MESSAGE FROM MEDICARE PROVIDED AND EXPLAINED. CM NOTIFIED JACEY ALEJANDRE. FELICITA CASEY WENDEL WILL COME AND COMPLETE ADMISSION PAPERWORK WITH PT TODAY. FOR DISCHARGE AFTER PT SIGNS ADMISSION PAPERWORK, FAX DISCHARGE INFORMATION TO [facility] AT [phone]. NURSE REPORT TO BE CALLED TO [facility] AT [phone]. [facility] TO ARRANGE VAN VB DEVELOPER. Broderick Yo, CASE MANAGEMENT Appended by Broderick Yo on 03/18/2019 13:30 MATERIALS PLANNER/PRODUCTION PLANNER: CM RECEIVED CALL FROM [facility], THEY NEED INCOME VERIFICATION FROM PT. CM MET WITH PT IN ROOM WITH FELICITA ON SPEAKER PHONE. PT REPORTS INCOME OF $1301 FROM [place] AND $489 SOCIAL SECURITY MONTHLY. PT DOES NOT HAVE BANK ACCOUNT, JUST GOVERNMENT BENEFITS CARD. FELICITA STATES THEY PLAN TO ACCEPT TODAY AND SHE WILL COME AND DO ADMISSION PAPERWORK TODAY; FELICITA ADVISED PT TO NOT SPEAND ANY MONEY FROM HIS BANK ACCOUNT FROM THIS POINT FORWARD. PT REPORTS UNDERSTANDING. BAT CARRIER NURSE NOTIFIED. ISABELLA WILL COME AND COMPLETE ADMISSION PAPERWORK WITH PT TODAY. FOR DISCHARGE AFTER PT SIGNS ADMISSION PAPERWORK, FAX DISCHARGE INFORMATION TO [facility] AT [phone]. NURSE REPORT TO BE CALLED TO [facility] AT [phone]. [facility] TO ARRANGE VAN VB DEVELOPER. Broderick Yo, CASE MANAGEMENT Appended by Broderick Yo on 03/18/2019 15:20 MATERIALS PLANNER/PRODUCTION PLANNER: CM SPOKE TO ISABELLA AT [facility], SHE HAS MET WITH PT AND THEY HAVE COMPLETEED ADMISSION PAPERWORK WITH PT TODAY. FELICITA WILL SET UP TRANSPORTATION. CM RECEIVED DISCHARGE INFORMATION, FAXED TO [facility] AT [phone]. BAT CARRIER NURSE AND BEDSIDE NURSE NOTIFIED. NURSE REPORT TO BE CALLED TO [facility] AT [phone]. [facility] TO ARRANGE VAN VB DEVELOPER. Broderick Yo, CASE MANAGEMENT DCP- Discharge Planning Updated by [id number]: Broderick Yo on 03/15/19 3:[address] Patient Name: MAKENZIE DESAI Encounter No: [id number] : 07-23-1950 Primary Insurance: MEDICARE PART A ONLY Anticipated DC Date: Planned Disposition: Long-Term Facility External Planned Provider: FIRST ACCEPTING SENIOR LIVING FACILITY, MEDICARE REHAB BED DCP follow-up note: CM RECEIVED CALL FROM [facility] WHO DECLINED PT STATING THAT PT HAS BEEN THERE AND HE WAS NOT COOPERATIVE WITH THERAPY AND HIS BEHAVIOR TOWARD STAFF WAS NOT GOOD. CM SPOKE TO PT AND GAVE HIM THE NEWS. PT STATES HE NEEDS SOMEWHERE TO GO AND ASKED CM TO CHECK WITH ANY FACILITY IN [place] THAT MAY BE WILLING TO TAKE HIM. CHOICE SIGNED FOR ANY SENIOR LIVING FACILITY IN [place]. CM NOTIFIED [facility] AT [phone] AND FAXED REFERRAL TO [facility] AND [facility] AT [phone]. CM FAXED REFERRAL TO [facility] AT [phone]. PT HAS BEEN DECLINED PLACEMENT BY [facility] AND [facility]. CM WAITING ON ADMISSION DETERMINATIONS FROM [facility], [facility] AND [facility]. NIKKI Naik DCP- Discharge Planning Updated by [id number]: Broderick Yo on 03/15/19 1:[address] Patient Name: MAKENZIE DESAI Encounter No: [id number] : 07-23-1950 Primary Insurance: MEDICARE PART A ONLY Anticipated DC Date: Planned Disposition: Long-Term Facility External Planned Provider: [facility], MEDICARE REHAB BED DCP follow-up note: CM RECEIVED CALL FROM SYD OF [facility] WHO ADVISED THEY CANNOT MEET PT'S NEEDS. CM NOTIFIED PT IN ROOM WHO ASKED CM TO CALL [facility] AND ASK THEM TO HANG ON TO HIS WHEELCHAIR HE PAID SOMEONE TO BRING IT THERE THINKING THEY WERE ACCEPTING HIM. PT WILL PAY SOMEONE TO PICK IT UP. CM CALLED AND NOTIFIED SYD WHO INFORMED CM THAT SHE HAS NOT SEEN PT'S WHEELCHAIR AND PT NEEDS TO FOLLOW UP WITH WHOMEVER HE PAID FOR DELIVERY. CM NOTIFIED PT. CM ENCOURAGED PT TO CONTINUE HIS COOPERATION WITH THERAPY SERVICES, PT STATES HE WILL. CM FAXED REFERRAL TO [facility] [place], . CM NOTIFIED [facility] OF REFERRAL. CM WAITING ADMISSION DETERMINATION FROM [facility]. NIKKI NAIK DCP- Discharge Planning Updated by [id number]: Broderick Yo on 03/15/19 8:[address] Patient Name: MAKENZIE DESAI Encounter No: [id number] : 07-23-1950 Primary Insurance: MEDICARE PART A ONLY Anticipated DC Date: Planned Disposition: Long-Term Facility External Planned Provider: [facility], MEDICARE REHAB BED Discharge Planning Comments: CM REVIEWED CHART, THERE ARE NOT THERAPY NOTES FROM THE WEEKEND. CM FAXED UPDATE TO [facility] AT [phone]. CM WAITING ADMISSION DETERMINATION FROM [facility]. CM WAITING PT'S PARTICIPATION WITH THERAPY SERVICES. Shook Splicer: Broderick Yo DCP- Discharge Planning Updated by [id number]: Broderick Yo on 03/12/19 2:[address] Patient Name: MAKENZIE DESAI Encounter No: [id number] : 07-23-1950 Primary Insurance: MEDICARE PART A ONLY Anticipated DC Date: Planned Disposition: Long-Term Facility External Planned Provider: [facility], MEDICARE REHAB BED Discharge Planning Comments: CM REVIEWED CHART NOTES, THERAPY INDICATED THAT PT HAS REFUSED THERAPY AND THERAPY HAS SIGNED OFF DUE TO REFUSALS. CM SPOKE TO DR. TAPIA AND JACEY PERKINS, OBTAINED NEW THERAPY ORDERS. CM MET WITH PT ROOM WHO ASSURED CM HE WILL PARTICIPATE WITH THERAPY AND UNDERSTANDS HE NEEDS TO FOR REHAB PLACEMENT. CM FAXED UPDATE TO [facility] AT [phone]. CM WAITING ADMISSION DETERMINATION FROM [facility]. CM WAITING PT'S PARTICIPATION WITH THERAPY SERVICES. Shook Splicer: Broderick Yo DCP- Discharge Planning Updated by [id number]: Broderick Yo on 03/11/19 1:[address] Patient Name: MAKENZIE DESAI Encounter No: [id number] : 07-23-1950 Primary Insurance: MEDICARE PART A ONLY Anticipated DC Date: Planned Disposition: Long-Term Facility External Planned Provider:[facility], MEDICARE REHAB BED Discharge Planning Comments: CM RECEIVED CALL FROM CHIDI OF [facility], , WHO HAS RECEIVED REFERRAL AND THEY ARE SCREENING FOR SKILLED ADMISSION. CHIDI REPORTS PT MUST PARTICIPATE WITH THERAPY AND MUST PROVIDE HIS MEDICARE NUMBER. DEXTER REVIEWED CHART NOTES, THERAPY INDICATED THAT PT HAS REFUSED THERAPY AND THERAPY HAS SIGNED OFF DUE TO REFUSALS. CM MET WITH PT ROOM WHO INSISTS AGAIN THAT HE DID NOT REFUSE, CM EXPLAINED THAT IF PT STATES HE WILL DO SOMTHING AND DOES NOT TAKE PHYSICAL ACTION IN EFFORT TO PARTICIPATE, HE IS INDEED REFUSING. CM EDUCATED PT THAT [facility] NEEDS HIM TO PARTICIPATE WITH ANY OFFERED THERAPY. PT ASSURED CM HE WILL PARTICIPATE WITH THERAPY. DEXTER EXPLAINED THAT PT WILL NEED MEDICARE NUMBER. PT ASKED FOR MEDICARE CONTACT PHONE NUMBER HE DOES NOT HAVE A MEDICARE CARD AND NEVER RECEIVED IT BUT INSISTED HE DOES HAVE MEDICARE. PT LATER CALLED CM AND PROVIDED MEDICARE [id number], [id number]. CM FAXED THIS NUMBER WITH UPDATE TO [facility] AT [phone]. CM WAITING ADMISSION DETERMINATION FROM [facility]. CM WAITING PT'S PARTICIPATION WITH THERAPY SERVICES. Shook Splicer: Broderick Yo DCP- Discharge Planning Updated by [id number]: Broderick Yo on 03/09/19 3:[address] Patient Name: MAKENZIE DESAI Admission Status: ER Accout number: [id number] Admission Date: 03-07-2019 : 07-23-1950 Admission Diagnosis: Attending: EVONNE TAPIA Current LOS: 2 Anticipated DC Date: Planned Disposition: Long-Term Facility Primary Insurance: MEDICARE PART A ONLY PLANNED EXTERNAL PROVIDER: [facility], MEDICARE REHAB BED Discharge Planning Comments: CM MET WITH PT IN ROOM TO DISCUSS DISCHARGE PLANNING AND NEEDS. PT REPORTS LIVING AT HOME INDEPENDENTLY WITH A FRIEND WHO WAS SPITTING THE RENT WITH HIM AT [facility]. THE FRIEND LEFT AND STOLE A "BUNCH OF STUFF" FROM PT. PT STATES HE WILL HAVE TO WORK OUT A NEW LIVING ARRANGEMENT WHEN HE IS ABLE TO WALK AND TAKE CARE OF HIMSELF AGAIN. PT HAS POWER WHEELCHAIR AND WALKER FROM [facility]. PT HAS NO OUTSIDE SERVICES ASSISTING IN THE HOME. CM DISCUSSED AVAILABILITY OF HOME HEALTH, REHAB SERVICES AND MEDICAL EQUIPMENT. PT STATES HE NEEDS REHAB AND WOULD LIKE TO RETURN TO [facility] OR HAVE REHAB AT [facility] IF DECLINED BY [facility]. CHOICE SIGNED. CM REVIEWED CHART NOTES, THERAPY INDICATED THAT PT HAS REFUSED FOR THE FIRST TWO OFFERED SESSIONS. CM SPOKE TO PT IN ROOM WHO INSISTS THAT HE DID NOT REFUSE, THAT THE THERAPIST ASKED PT TO STAND UP BY THE BED AND PT STATED HE COULD NOT. PT ENCOURAGED TO PARTICIPATE WITH THERAPY EACH TIME IT IS OFFERED AND EXPLAINED IF PT IS ASKING CM TO GET HIM INTO REHAB, PT NEEDS TO DO HIS PART AND PARTICIPATE EACH TIME WITH THERAPY. PT STATES UNDERSTANDING. CM FAXED REHAB REFERRAL TO [facility] AT [phone]. CM TO FOLLOW UP WITH JUAN OF [facility] AT [phone], AFTER [facility], TO MAKE HER AWARE OF REHAB REFERRAL. CM WAITING PT'S PARTICIPATION WITH THERAPY SERVICES. Shook Splicer: Broderick Yo DCPIA - Discharge Planning Initial Assessment Updated by [id number]: Broderick Yo on 03/09/19 4:34 pm * Is the patient Alert and Oriented? Yes * How many steps to enter\\exit or inside your home? NONE * PCP DR. BARRERA * Pharmacy [facility] [place] OR [facility] [place] * Preadmission Environment Home with Family * ADLs Independent * Equipment Cane Power Chair or Electric Scooter * Other Equipment [place] IS PROVIDER OF EQUIPMENT * List name and contact numbers for known caregivers / representatives who currently or will assist patient after discharge: LILIAM DESAI, EX , * Verbal permission to speak to the caregivers and representatives has been obtained from the patient. N/A * Community resources currently utilized None * Please name any agencies selected above. NONE * Additional services required to return to the preadmission environment? Yes * Can the patient safely return to the preadmission environment? Yes * Has this patient been hospitalized within the prior 30 days at any hospital? No Coverage Notice Reviewer: [id number] Notice Issued Date-Time: 03/09/2019 16:05 Notice Type: Patient Choice Letter Notice Delivered To: Patient Relationship to Patient: Cad Design Engineer Name: Delivery Method: HAND - Hand Delivered Colette Days: Prior Verbal Notification: Recipient Understood Notice: Yes Recipient Signature: Yes Med Rec Note Co-signed by Attending: Coverage Notice Comment: [facility] Reviewer: RAKESH Yo Notice Issued Date-Time: 03/15/2019 16:30 Notice Type: Patient Choice Letter Notice Delivered To: Patient Relationship to Patient: Cad Design Engineer Name: Delivery Method: HAND - Hand Delivered Colette Days: Prior Verbal Notification: Recipient Understood Notice: Yes Recipient Signature: Yes Med Rec Note Co-signed by Attending: Coverage Notice Comment: ANY [place] S[facility] LIVING FACLITY. Reviewer: [email or web address] Yo Notice Issued Date-Time: 03/18/2019 11:45 Notice Type: IM Discharge Notice Notice Delivered To: Patient Relationship to Patient: Cad Design Engineer Name: Delivery Method: HAND - Hand Delivered Colette Days: Prior Verbal Notification: Recipient Understood Notice: Yes Recipient Signature: Yes Med Rec Note Co-signed by Attending: Coverage Notice Comment: Last DP export: 03/18/19 12:38 pm Patient Name: MAKENZIE DESAI Page 11861 at 1523 All edits/amendments must be made on the electronic document DICTATION DATE: 03/18/191522 SPRING LAYER: OSMEL 03/18/191522 RPT#: [id number] DC DATE: STATUS: ADM IN [facility] [address] [place] [address] END OF REPORT
--- NOTE | 2019-03-18 15:37 | NUR ---
OT NOTE: BED MOB WITH SBA; REQUIRED MAX ASSIST TO RINA SOCKS; MIN ASSIST FOR GOWN; SIT TO STAND WITH MIN ASSIST; ABLE TO AMB IN ROOM WITH WALKER 17 FT WITH 1 SIT DOWN REST BREAK. PERFORMED A FEW UE AND LE EXS WHILE SITTING ON EOB. BACK TO BED WITHOUT ASSIST. ERICA NUNEZ,OTR/L [phone]
== END 2019-03-18 16:33 | DRG 291 ==
LOC: D.ER 11:12 → D.M2 14:14
PROVIDERS: Family Medicine; ADMIT Internal Medicine Nephrology; ATTEND Internal Medicine Nephrology
PROC: 05HY33Z Insertion of Infusion Device into Upper Vein, Percutaneous Approach (ICD-10-PCS; principal; 2019-03-09)
DX: I13.0 Hypertensive heart and chronic kidney disease with heart failure and stage 1 through stage 4 chronic kidney disease, or unspecified chronic kidney disease (principal); I50.33 Acute on chronic diastolic (congestive) heart failure; E43 Unspecified severe protein-calorie malnutrition; J90 Pleural effusion, not elsewhere classified; J81.1 Chronic pulmonary edema; N17.9 Acute kidney failure, unspecified; N04.9 Nephrotic syndrome with unspecified morphologic changes; B19.9 Unspecified viral hepatitis without hepatic coma; N50.89 Other specified disorders of the male genital organs; J44.9 Chronic obstructive pulmonary disease, unspecified; Z79.01 Long term (current) use of anticoagulants; I87.2 Venous insufficiency (chronic) (peripheral); Z86.73 Personal history of transient ischemic attack (TIA), and cerebral infarction without residual deficits; Z86.718 Personal history of other venous thrombosis and embolism; N18.9 Chronic kidney disease, unspecified; I48.91 Unspecified atrial fibrillation; K21.9 Gastro-esophageal reflux disease without esophagitis; D64.9 Anemia, unspecified; K74.60 Unspecified cirrhosis of liver

== ENCOUNTER 2019-03-18 23:44 | Inpatient (IN) | payer MEDICARE ==
[~2019-03-18] VITALS: Ht 182.9 cm; Wt 99.9 kg
[~2019-03-18 23:44] MED LIST changes: +BETAPACE 80 MG80 MG PO; +BUMEX2 MG PO; +BUPRENORPHINE HC8 MG SL; +FLUTICASONE PRO16 GM NASAL; +MUCINEX DM ER1 EAC1 PO; +SINGULAIR10 MG PO
[2019-03-19 00:16] LABS: CALC OSMOLALITY 287 mosm/kg (275-300); CARBON DIOXIDE 36.9 mmol/L (21.0-32.0); CHLORIDE - SERUM 99 mmol/L (98-107); CREATININE - SERUM 0.8 mg/dL (0.6-1.3); GLUCOSE 113 mg/dL (74-106); POTASSIUM - SERUM 3.9 mmol/L (3.5-5.1); SODIUM 141 mmol/L (136-145); UREA NITROGEN 28 mg/dL (7-18); eGFR NON AFRICAN AMERICAN > 90 mL/min (90-120)
[2019-03-19 00:18] LABS: APTT 35.3 SECONDS (22.8-39.4); INR 1.57 (0.85-1.17); PROTIME 18.2 SECONDS (11.6-15.0)
[2019-03-19 00:25] LABS: ALBUMIN 1.4 g/dL (3.4-5.0); ALKALINE PHOSPHATASE 326 U/L (46-116); ALT (SGPT) 44 U/L (10-68); BILIRUBIN - TOTAL 0.59 mg/dL (0.2-1.3); CKMB 0.6 U/L (0.0-3.6); CREATINE KINASE 57 UL (21-232); PRO BNP 5203 pg/mL (0-125); TROPONIN-I 0.038 ng/mL (0.000-0.060)
[2019-03-19 00:36] LABS: BASOPHILS 0.2 % (0-2); EOSINOPHILS 1.8 % (0-7); HEMOGLOBIN 12.9 g/dL (13.5-17.5); IMMATURE GRANULOCYTES 0.6 % (0-5); LYMPHOCYTES 9.6 % (15-50); MCH 24.8 pg (26.0-34.0); MCHC 30.7 g/dL (31.0-37.0); MCV 80.6 fL (80.0-100.0); MEAN PLATELET VOLUME 9.6 fL (7.4-10.4); MONOCYTES 11.9 % (2-11); NEUTROPHILS 75.9 % (40-80); PLATELET COUNT 340 10x3/uL (130-400); RBC 5.21 10x6/uL (4.20-6.10); RDW 17.3 % (11.5-14.5); WBC 10.8 10x3/uL (4.8-10.8)
[2019-03-19 02:30] VITALS: BP 140/76; BMI 29.7
--- NOTE | 2019-03-19 02:30 | NUR ---
RECIEVED REPORT FROM [facility], PT ARRIVED BY BED. VSS, AAOX3, NO S/S OF RT DISTRESS. BILAT LOWER EXT APPEARS DRY AND SCALY. P/ULCER TO COCCYX. CHRONIC CATH ON ADMISSION. 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 PT C/O GENERALIZED BODY PAIN. SL BUPRENEX GIVEN PER ORDER. PT ON 3L O2 NC. PT INITIAL ASSESSMENT COMPLETED. WILL CPOC. CL WITHIN REACH, BED IN LOW, SR UP X2.
[2019-03-19 04:00] VITALS: BP 142/68
[2019-03-19 06:04] LABS: CKMB 0.4 U/L (0.0-3.6); CREATINE KINASE 50 UL (21-232); PRO BNP 4425 pg/mL (0-125); TROPONIN-I 0.042 ng/mL (0.000-0.060)
--- NOTE | 2019-03-19 07:39 | NUR ---
REPORT RECIEVED. PT RESTING QUIETLY WITH EYES CLOSED, RISE AND FALL OF CHEST NOTED. RR EVEN AND UNLABORED ON 4L NC. PT HAS A L SHOULDER PIV THAT IS SL AND A RODGERS DRAINING URINE. BED LOCKED AND IN LOWEST POSITION, CALL LIGHT WITHIN REACH. WILL CTM.
[2019-03-19 10:22] VITALS: BP 107/53
--- NOTE | 2019-03-19 12:31 | MORECARE ---
CASE MANAGEMENT DISCHARGE SUMMARY PATIENT: MAKENZIE DESAI S UNIT: [id number] ADM DATE: 03/19/19 AGE: 68 : [birth year] SEX: M ROOM/BED: D.2136 AUTHOR: JEWEL RUSHING PHYSICIAN: REFERRING PHYSICIAN: SOO EASTON MD DATE OF SERVICE: 03/19/19 Discharge Plan Patient Name: MAKENZIE DESAI [facility] [facility] 07/23/1950 Planned Disposition: Shelter Facility Anticipated Discharge Date: 03/19/19 Discharge Date: Expected LOS: 1 Initial Reviewer: [id number] Initial Review Date: 03/19/2019 Generated: 03/19/19 1:30 pm DCPIA - Discharge Planning Initial Assessment Updated by [id number]: Broderick Yo on 03/19/19 12:29 pm * Is the patient Alert and Oriented? Yes * How many steps to enter\exit or inside your home? NONE * PCP DR. BARRERA * [facility] [place] * Preadmission Environment Home with Family * ADLs Independent * Equipment Cane Power Chair or Electric Scooter * Other Equipment [employer] * List name and contact numbers for known caregivers / representatives who currently or will assist patient after discharge: LILIAM DESAI, EX , TRELL DESAI, DTR, * Verbal permission to speak to the caregivers and representatives has been obtained from the patient. No * Community resources currently utilized None * Please name any agencies selected above. NONE * Additional services required to return to the preadmission environment? Yes * Can the patient safely return to the preadmission environment? No * Has this patient been hospitalized within the prior 30 days at any hospital? Yes Patient Name: MAKENZIE DESAI Page [id number] at 1231 All edits/amendments must be made on the electronic document DICTATION DATE: 03/19/19 1230 PRIVATE DUTY NURSE: OSMEL 03/19/19 1230 RPT#: [id number] DC DATE: STATUS: ADM IN [facility] [address] [place] [address] END OF REPORT
--- NOTE | 2019-03-19 13:07 | NUR ---
SPOKE WITH REJI TO OBTAIN ORDERS FOR PAIN MEDS. SHE TOLD ME TO RESTART HIS 8MG SUBUTEX TID WHICH IS WHAT HE TAKES AT HOME. SHE ALSO REQUESTED THAT I PUT IN AN ORDER TO HAVE A WALK TEST DONE. CALLED [facility] TO LET THEM KNOW AT THIS TIME. WILL GURPREETM
[2019-03-19 13:53] VITALS: BP 123/67
--- NOTE | 2019-03-19 14:10 | NUR ---
UPON GIVING PTS MEDS. PT WAS ON THE PHONE WITH A DR FROM THE [facility] STATING WE WERENT GIVING HIM HIS PAIN MEDICATION AND LIED TO THEM ABOUT THE STORY OF WHY HE WAS BACK HERE. PT ASKED IF THE DR WOULD CALL AND SPEAK TO MILLIE BECAUSE IT WAS TOO MUCH FOR HIM TO HANDLE ANYMOERE.
--- NOTE | 2019-03-19 15:52 | NUR ---
I have reviewed this patient and I concur with the Shift Assessment completed by the Licensed Practical Nurse today this shift.
[2019-03-19 16:19] VITALS: BP 109/40
--- NOTE | 2019-03-19 17:04 | MORECARE ---
CASE MANAGEMENT DISCHARGE SUMMARY PATIENT: MAKENZIE DESAI UNIT: [id number] ADM DATE: 03/19/19 AGE: 68 : [birth year] SEX: M ROOM/BED: D.2136 AUTHOR: СЕРГЕЙDOC PHYSICIAN: REFERRING PHYSICIAN: SOO EASTON MD DATE OF SERVICE: 03/19/19 Discharge Plan Patient Name: MAKENZIE DESAI Facility: [facility]:[place] : 07/23/1950 Planned Disposition: Fdc Facility Anticipated Discharge Date: 03/19/19 Discharge Date: Expected LOS: 1 Initial Reviewer: [id number] Initial Review Date: 03/19/2019 Generated: 03/19/19 6:03 pm DCPIA - Discharge Planning Initial Assessment Updated by [id number]: Broderick Yo on 03/19/19 12:29 pm * Is the patient Alert and Oriented? Yes * How many steps to enter\exit or inside your home? NONE * PCP DR. BARRERA * [facility] [place] * Preadmission Environment Home with Family * ADLs Independent * Equipment Cane Power Chair or Electric Scooter * Other Equipment [employer] * List name and contact numbers for known caregivers / representatives who currently or will assist patient after discharge: LILIAM DESAI, EX , TRELL DESAI, DTR, * Verbal permission to speak to the caregivers and representatives has been obtained from the patient. No * Community resources currently utilized None * Please name any agencies selected above. NONE * Additional services required to return to the preadmission environment? Yes * Can the patient safely return to the preadmission environment? No * Has this patient been hospitalized within the prior 30 days at any hospital? Yes Coverage Notice Reviewer: [id number] - Broderick Yo Notice Issued Date-Time: 03/19/2019 11:45 Notice Type: Patient Choice Letter Notice Delivered To: Patient Relationship to Patient: Accounting Machine Operator Name: Delivery Method: HAND - Hand Delivered Colette Days: Prior Verbal Notification: Recipient Understood Notice: Yes Recipient Signature: Yes Med Rec Note Co-signed by Attending: Coverage Notice Comment: ANY NURSING FACILITY Last DP export: 03/19/19 11:31 am Patient Name: MAKENZIE DESAI Page 91918 at 1704 All edits/amendments must be made on the electronic document DICTATION DATE: 03/19/191702 LEGAL SERVICE SPECIALIST: OSMEL 03/19/191702 RPT#: [id number] DC DATE: STATUS: ADM IN [facility] [address] [place] [address] END OF REPORT
--- NOTE | 2019-03-19 17:19 | MORECARE ---
CASE MANAGEMENT DISCHARGE SUMMARY PATIENT: MAKENZIE DESAI UNIT: [id number] ADM DATE: 03/19/19 AGE: 68 : [birth year] SEX: M ROOM/BED: D.2136 AUTHOR: СЕРГЕЙDOC PHYSICIAN: REFERRING PHYSICIAN: SOO EASTON MD DATE OF SERVICE: 03/19/19 Discharge Plan Patient Name: MAKENZIE DESAI Facility: [facility]:[place] : 07/23/1950 Planned Disposition: Prison Facility Anticipated Discharge Date: 03/19/19 Discharge Date: Expected LOS: 1 Initial Reviewer: [id number] Initial Review Date: 03/19/2019 Generated: 03/19/19 6:19 pm Comments DCP- Discharge Planning Updated by [email or web address]: Broderick Yo on 03/19/19 4:[address] Patient Name: MAKENZIE DESAI Admission Status: ER Accout number: [id number] Admission Date: 03-19-2019 : 07-23-1950 Admission Diagnosis: Attending: SOO EASTON Current LOS: 1 Anticipated DC Date: 03-19-2019 Planned Disposition: Prison Facility Primary Insurance: MEDICARE A & B PLANNED EXTERNAL PROVIDER: [facility] OR [facility] HOMELESS DOMICILLARY Discharge Planning Comments: CM MET WITH PT IN ROOM TO DISCUSS DISCHARGE PLANNING AND NEEDS. PT REPORTS BEING HOMELESS. PT STATES HE DID NOT HAVE TWO GUNS AT [facility], PT STATES THEY WERE JUST "BB GUNS" AND HE GAVE THEM TO THE POLICE TO HOLD BECAUSE THE LITTLE "BLACK AIDES" AT [place] WERE THROWING A FIT ABOUT THEM. PT DOES NOT DENY HAVING KNIVES IN HIS BAG THAT THE POLICE ALSO HAVE NOW AND THAT HIS EX WILL LAND CLEARER FOR HIM. PT STATES HE HAS A MEDICAL MARIJUANA CARD AND HE STILL HAS ALL OF HIS MARIJUANA, THE POLICE CANNOT TAKE WHAT HE HAS LEGALLY. PT HAS NO MEDICAL EQUIPMENT WITH HIM AND STATES HE WILL HAVE HIS ELECTRIC WHEELCHAIR BROUGHT TO HIM WHEN HE GETS INTO A PLACE. PT WAS RECENTLY IN THE [place] [facility] BEFORE MOVING IN WITH A ROOMMATE IN [place] AND THAT ROOMMATE STOLE PT'S BELONGINGS AND LEFT. CM DISCUSSED THAT PT IS NOT APPROPRIATE FOR HOSPTIAL ADMISSION AND THAT PT NEEDS A PLACE TO LIVE, THE HOSPITAL IS NOT A PLACE TO LIVE. CM ATTEMPTED TO ASSIST PT IN EXPLORING PERSONAL RESOURCES, PT STATES THAT HIS EX LILIAM AND DAUGHTER TRELL ARE NOT ABLE TO HELP AND THEY DON'T KNOW ANYONE WHO CAN. 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 PT WANTS CM TO GET HIM INTO A FCI. CM EXPLAINED THAT PT CANNOT GET INTO [facility], [facility], [facility], [facility], [facility] OR [facility]. PT BEGAN TO ARGUE ABOUT WHY THEY WILL NOT ACCEPT HIM. CM EXPLAINED AT THIS TIME, DISCUSSING WHY THEY ARE NOT ACCEPTING IS NOT PRODUCTIVE. CM ASKED PT IF HE WILL SIGN A STATEWIDE CONSENT FOR ANY FCI. PT SIGNED CONSENT STATING HE HAS NO CHOICE. PT STATES HE CANNOT STAY IN A HOMELESS RESIDENTIAL BECAUSE OF HIS "MEDICAL NEEDS" AND BEING CONFINED TO ELECTRIC WHEELCHAIR. PT WILL CONSENT TO TRANSFER TO THE [place] IF THEY WILL ACCEPT HIM. CM CALLED [place] EXPEDITOR, , ASKED FOR REHAB OR HOMELESS PLACEMENT IN [facility]. CM CALLED JORGE LUIS TORIBIO, [place] BUSINESS DEVELOPMENT PROFESSIONAL, , EXT [phone], LEFT DETAILED MESSAGE ASKING FOR ASSITANCE WITH PLACEMENT. CM CALLED CHELA [facility], [place] HOMELESS DOMICILLARY COORDINATOR, , LEFT DETAILED MESSAGE. CM RECEIVED RETURN CALL FROM DANIEL MO , m OF [facility] WHO REPORTS PT IS NOT APPROPRIATE FOR REHAB SERVICES AND ACCORDING TO THERAPY NOTES FROM HOSPITAL REVIEWED BY CM, PT IS AT "BASELINE LEVEL OF FUNCTIONING." CM RECEIVED CALL FROM DR. SANTIZO, , OF [place] SUBSTANCE ABUSE PRO[facility], SHE HAS RECEIVED CALL FROM PT ASKING FOR MEDICAL TRANSFER TO [facility]. CM PROVIDED. CM REVIEWED SITUATION, DR. SANTIZO AGREES THAT PT IS NOT APPRORIATE FOR MEDICAL TRANSFER TO ND AND WILL SEND MESSAGE TO HOMELESS "DOM" FOR POSSIBLE ASSISTANCE. CM CALLED AND SPOKE TO SHOBHA OF [facility], , ASKED FOR ASSISTANCE WITH PLACEMENT, PROVIDED DETAILED INFORMATION TO PROBLEMS AT [facility] FOR PLACEMENT IN REHAB AND [facility] CARE. SHOBHA WILL SCREEN FOR ADMISSION; CM FAXED REFERRAL TO [facility] AT [phone]. CM WAITING ON RETURN CALL FROM [facility]; CM WAITING ADMISSION DETERMINATION FROM [facility] FOR REHAB TO LUMP INSPECTOR CARE. Aoc Operations Intelligence Chief: Broderick Yo DCPIA - Discharge Planning Initial Assessment Updated by [id number]: Broderick Yo on 03/19/19 12:29 pm * Is the patient Alert and Oriented? Yes * How many steps to enter\\exit or inside your home? NONE * PCP DR. BARRERA * Pharmacy [facility] IN [place] * Preadmission Environment Home with Family * ADLs Independent * Equipment Cane Power Chair or Electric Scooter * Other Equipment [employer] * List name and contact numbers for known caregivers / representatives who currently or will assist patient after discharge: LILIAM DESAI, EX , TRELL DESAI, DTR, * Verbal permission to speak to the caregivers and representatives has been obtained from the patient. No * Community resources currently utilized None * Please name any agencies selected above. NONE * Additional services required to return to the preadmission environment? Yes * Can the patient safely return to the preadmission environment? No * Has this patient been hospitalized within the prior 30 days at any hospital? Yes Coverage Notice Reviewer: [id number] - Broderick Yo Notice Issued Date-Time: 03/19/2019 11:45 Notice Type: Patient Choice Letter Notice Delivered To: Patient Relationship to Patient: Clinical Scientist Name: Delivery Method: HAND - Hand Delivered Colette Days: Prior Verbal Notification: Recipient Understood Notice: Yes Recipient Signature: Yes Med Rec Note Co-signed by Attending: Coverage Notice Comment: ANY NURSING FACILITY Last DP export: 03/19/19 4:04 pm Patient Name: MAKENZIE DESAI Page 13678 at 1719 All edits/amendments must be made on the electronic document DICTATION DATE: 03/19/191718 SENIOR COMPLIANCE ANALYST: OSMEL 03/19/191718 RPT#: [id number] DC DATE: STATUS: ADM IN [facility] [address] [place] [address] END OF REPORT
--- NOTE | 2019-03-19 17:27 | MORECARE ---
CASE MANAGEMENT DISCHARGE SUMMARY PATIENT: MAKENZIE DESAI UNIT: [id number] ADM DATE: 03/19/19 AGE: 68 : [birth year] SEX: M ROOM/BED: D.4916 AUTHOR: СЕРГЕЙDOC PHYSICIAN: REFERRING PHYSICIAN: SOO EASTON MD DATE OF SERVICE: 03/19/19 Discharge Plan Patient Name: MAKENZIE DESAI Facility: [facility]:[place] : 07/23/1950 Planned Disposition: [facility] Facility Anticipated Discharge Date: 03/19/19 Discharge Date: Expected LOS: 1 Initial Reviewer: [id number] Initial Review Date: 03/19/2019 Generated: 03/19/19 6:27 pm Comments DCP- Discharge Planning Updated by [id number]: Broderick Yo on 03/19/19 4:[address] Patient Name: MAKENZIE DESAI Admission Status: ER Accout number: [id number] Admission Date: 03-19-2019 : 07-23-1950 Admission Diagnosis: Attending: SOO EASTON Current LOS: 1 Anticipated DC Date: 03-19-2019 Planned Disposition: [facility] Facility Primary Insurance: MEDICARE A & B PLANNED EXTERNAL PROVIDER: [facility] OR [facility] HOMELESS DOMICILLARY Discharge Planning Comments: CM MET WITH PT IN ROOM TO DISCUSS DISCHARGE PLANNING AND NEEDS. PT REPORTS BEING HOMELESS. PT STATES HE DID NOT HAVE TWO GUNS AT [facility], PT STATES THEY WERE JUST "BB GUNS" AND HE GAVE THEM TO THE POLICE TO HOLD BECAUSE THE LITTLE "BLACK AIDES" AT [place] WERE THROWING A FIT ABOUT THEM. PT DOES NOT DENY HAVING KNIVES IN HIS BAG THAT THE POLICE ALSO HAVE NOW AND THAT HIS EX WILL MOVING VAN DRIVER FOR HIM. PT STATES HE HAS A MEDICAL MARIJUANA CARD AND HE STILL HAS ALL OF HIS MARIJUANA, THE POLICE CANNOT TAKE WHAT HE HAS LEGALLY. PT HAS NO MEDICAL EQUIPMENT WITH HIM AND STATES HE WILL HAVE HIS ELECTRIC WHEELCHAIR BROUGHT TO HIM WHEN HE GETS INTO A PLACE. PT WAS RECENTLY IN THE [place] BEFORE MOVING IN WITH A ROOMMATE IN [place] AND THAT ROOMMATE STOLE PT'S BELONGINGS AND LEFT. CM DISCUSSED THAT PT IS NOT APPROPRIATE FOR HOSPTIAL ADMISSION AND THAT PT NEEDS A PLACE TO LIVE, THE HOSPITAL IS NOT A PLACE TO LIVE. CM ATTEMPTED TO ASSIST PT IN EXPLORING PERSONAL RESOURCES, PT STATES THAT HIS EX LILIAM AND DAUGHTER TRELL ARE NOT ABLE TO HELP AND THEY DON'T KNOW ANYONE WHO CAN. CM ASKED ABOUT GOING BACK TO [place] [facility], PT STATES HE WORKED THROUGH THE PROGRAM AND CANNOT GO BACK NOW. PT WANTS CM TO GET HIM INTO A PRISON. CM EXPLAINED THAT PT CANNOT GET INTO [facility], [facility], [facility], [facility], [facility] OR [facility]. PT BEGAN TO ARGUE ABOUT WHY THEY WILL NOT ACCEPT HIM. CM EXPLAINED AT THIS TIME, DISCUSSING WHY THEY ARE NOT ACCEPTING IS NOT PRODUCTIVE. CM ASKED PT IF HE WILL SIGN A STATEWIDE CONSENT FOR ANY PRISON. PT SIGNED CONSENT STATING HE HAS NO CHOICE. PT STATES HE CANNOT STAY IN A HOMELESS DETENTION BECAUSE OF HIS "MEDICAL NEEDS" AND BEING CONFINED TO ELECTRIC WHEELCHAIR. PT WILL CONSENT TO TRANSFER TO THE [place] IF THEY WILL ACCEPT HIM. CM CALLED [place] EXPEDITOR, , ASKED FOR REHAB OR HOMELESS PLACEMENT IN [facility] PROGRAM. CM CALLED JORGE LUIS TORIBIO, [place] TANK FILLER, , EXT [phone], LEFT DETAILED MESSAGE ASKING FOR ASSITANCE WITH PLACEMENT. CM CALLED CHELA [place], [place] HOMELESS DOMICILLARY COORDINATOR, , LEFT DETAILED MESSAGE. CM RECEIVED RETURN CALL FROM DANIEL MO , m OF [facility] WHO REPORTS PT IS NOT APPROPRIATE FOR REHAB SERVICES AND ACCORDING TO THERAPY NOTES FROM HOSPITAL REVIEWED BY CM, PT IS AT "BASELINE LEVEL OF FUNCTIONING." CM RECEIVED CALL FROM DR. SANTIZO, , OF [place] SUBSTANCE ABUSE PROGRAM, SHE HAS RECEIVED CALL FROM PT ASKING FOR MEDICAL TRANSFER TO [place]. CM PROVIDED. CM REVIEWED SITUATION, DR. SANTIZO AGREES THAT PT IS NOT APPRORIATE FOR MEDICAL TRANSFER TO [place] AND WILL SEND MESSAGE TO HOMELESS "DOM" FOR POSSIBLE ASSISTANCE. CM CALLED AND SPOKE TO SHOBHA OF [facility], , ASKED FOR ASSISTANCE WITH PLACEMENT, PROVIDED DETAILED INFORMATION TO PROBLEMS AT [facility] FOR PLACEMENT IN REHAB AND SNF CARE. SHOBHA WILL SCREEN FOR ADMISSION; CM FAXED REFERRAL TO [facility] AT [phone]. CM WAITING ON RETURN CALL FROM CHELA [facility]; CM WAITING ADMISSION DETERMINATION FROM [facility] FOR REHAB TO EDGE STAINER CARE. PATIENT WAS TESTED FOR OXGYEN ON 03-19-18, WAS 87% ON ROOM AIR AT REST, 96% ON 2LNC AT REST. PT WILL NEED OXYGEN ARRANGEMENT IS HE IS NOT DISCHARGED TO NURSING FACILITY. Business Analysis Specialist: Broderick Yo DCPIA - Discharge Planning Initial Assessment Updated by [id number]: Broderick Yo on 03/19/19 12:29 pm * Is the patient Alert and Oriented? Yes * How many steps to enter\\exit or inside your home? NONE * PCP DR. BARRERA * [facility] [place] * Preadmission Environment Home with Family * ADLs Independent * Equipment Cane Power Chair or Electric Scooter * Other Equipment [employer] * List name and contact numbers for known caregivers / representatives who currently or will assist patient after discharge: LILIAM DESAI, EX , TRELL DESAI, DTR, * Verbal permission to speak to the caregivers and representatives has been obtained from the patient. No * Community resources currently utilized None * Please name any agencies selected above. NONE * Additional services required to return to the preadmission environment? Yes * Can the patient safely return to the preadmission environment? No * Has this patient been hospitalized within the prior 30 days at any hospital? Yes Coverage Notice Reviewer: [id number] - Broderick Yo Notice Issued Date-Time: 03/19/2019 11:45 Notice Type: Patient Choice Letter Notice Delivered To: Patient Relationship to Patient: Carton Filling Machine Operator Name: Delivery Method: HAND - Hand Delivered Colette Days: Prior Verbal Notification: Recipient Understood Notice: Yes Recipient Signature: Yes Med Rec Note Co-signed by Attending: Coverage Notice Comment: ANY NURSING FACILITY Last DP export: 03/19/19 4:19 pm Patient Name: MAKENZIE DESAI Page [id number] at 1727 All edits/amendments must be made on the electronic document DICTATION DATE: 03/19/191726 ELECTRIC METER INSTALLER: OSMEL 03/19/191726 RPT#: [id number] DC DATE: STATUS: ADM IN [facility] [address] [place] [address] END OF REPORT
--- NOTE | 2019-03-19 19:37 | NUR ---
RECEIVED UP BED WITH EYES OPEN AND TV ON. ALERT AND ORIENTED X4. UP WITH ASSIST. O2@ 2 LITERS PERN/C. IV TO LEFT ARM PICC LINE SL.. DSG TO BILATERAL BUTTOCKS AND RIGHT FOOT. F/C IN PLACE WITH CLEAR YELLOW URINE IN BEG. DENIES ANY NEEDS AT THIS TIME.
[2019-03-19 20:30] VITALS: BP 118/64
[2019-03-20 00:30] VITALS: BP 111/53
--- NOTE | 2019-03-20 01:13 | NUR ---
AIDE TOLD THIS NURSE HE WANTED A UPDRAFT AND PAIN MEDICATION. CALLED RT FOR UPDRAFT. NO PRN PAIN MEDICATIONS ORDERED. SUBOXIN GIVEN EARLIER. PT WAS ASLEEP AND HARD TO AROUSE WHEN THIS NURSE ENTERED THE ROOM.
[2019-03-20 04:30] VITALS: BP 115/64
[2019-03-20 05:46] LABS: BASOPHILS 0.2 % (0-2); HEMATOCRIT 38.7 % (42.0-54.0); HEMOGLOBIN 11.4 g/dL (13.5-17.5); IMMATURE GRANULOCYTES 0.5 % (0-5); LYMPHOCYTES 12.2 % (15-50); MCH 24.4 pg (26.0-34.0); MCHC 29.5 g/dL (31.0-37.0); MCV 82.9 fL (80.0-100.0); MEAN PLATELET VOLUME 9.7 fL (7.4-10.4); MONOCYTES 15.5 % (2-11); NEUTROPHILS 68.6 % (40-80); PLATELET COUNT 383 10x3/uL (130-400); RBC 4.67 10x6/uL (4.20-6.10); RDW 17.4 % (11.5-14.5); WBC 9.3 10x3/uL (4.8-10.8)
[2019-03-20 05:51] LABS: ALBUMIN 1.1 g/dL (3.4-5.0); ALKALINE PHOSPHATASE 286 U/L (46-116); ALT (SGPT) 43 U/L (10-68); BILIRUBIN - TOTAL 0.39 mg/dL (0.2-1.3); CALC OSMOLALITY 286 mosm/kg (275-300); CALCIUM 7.7 mg/dL (8.5-10.1); CARBON DIOXIDE 38.9 mmol/L (21.0-32.0); CHLORIDE - SERUM 100 mmol/L (98-107); CREATININE - SERUM 0.8 mg/dL (0.6-1.3); GLUCOSE 106 mg/dL (74-106); MAGNESIUM - SERUM 1.8 mg/dL (1.8-2.4); POTASSIUM - SERUM 3.7 mmol/L (3.5-5.1); PROTEIN - SERUM 6.2 g/dL (6.4-8.2); SODIUM 141 mmol/L (136-145); UREA NITROGEN 30 mg/dL (7-18); eGFR NON AFRICAN AMERICAN > 90 mL/min (90-120)
--- NOTE | 2019-03-20 07:21 | NUR ---
PT AWAKE AND ORIENTED, C/O HEADACHE AND REQUESTING TYLENOL AND TO KNOW ALL HIS MEDICAITIONS. WILL ACCOMIDATE. ALL QUESTIONS ANSWEREED TO THE BEST OF MY ABILITY. CL IN REACH, SRX2. NO FAMILY PRESENT AT BEDSIDE.
[2019-03-20 07:56] VITALS: BP 123/63
--- NOTE | 2019-03-20 09:49 | NUR ---
PT AWAK AND ORIENTED. TOOK MRMENA MEDS WITHOUT DIFFICULTY OR COMPLAINT. HAS NO CONCERNS THIS AM. CL INR EACH, SRX2, NO FAMILY PRESENT AT BEDSIDE.
--- NOTE | 2019-03-20 09:55 | NUR ---
I have reviewed this patient and I concur with the Shift Assessment completed by the Licensed Practical Nurse today this shift.
[2019-03-20 11:18] VITALS: BP 91/60
--- NOTE | 2019-03-20 13:00 | NUR ---
PT C/O THE CAFETERIA SENDING HIM A COPY OF THE LUNCH MENU THAT WAS NOT MARKED THE SAME THE ONE HE SENT HTIS MORNING (THIS MENUE WAS BLANK). PT REQUESTS I CALL AND INFORM THE CAFETERIA OF THIS MISTAKE. WILL ACCOMIDATE. CL IN REACH,S RX2
--- NOTE | 2019-03-20 15:25 | NUR ---
PT AWAKE AND ORIENTED, NO COMPLALITNS/CONCERNS AT THIS TME. NO FAMILY AT BEDSIDE. CL IN REACH, SRX2.
[2019-03-20 16:02] VITALS: BP 109/82
--- NOTE | 2019-03-20 19:16 | NUR ---
RECEIVED UP IN BED WITH EYES CLOSED. AROUSES TO LOUD STIMULI. HAS RMOTE NEXT TO HIS HEAD WITH SOUND UP. ORIENTED X4. UP WITH ASSIST. IV TO LEFT CHEST SL. F/C INTACT WITH CLEAR YELLOW URINE DRAINING TO BEDSIDE DRAINING TO BEDSIDE DRAINAGE BAG. TESTICLE STILL ENLARGED. SCABS TO CROWN OF THE HEAD. DEBBY AREA TO RIGHT AND LEFT BUTTOCKS. DENIES ANY NEEDS AT THIS TIME.
[2019-03-20 20:30] VITALS: BP 104/71
[2019-03-21 00:30] VITALS: BP 121/66
[2019-03-21 04:30] VITALS: BP 113/64
[2019-03-21 06:18] LABS: BASOPHILS 0.3 % (0-2); HEMATOCRIT 38.5 % (42.0-54.0); HEMOGLOBIN 11.4 g/dL (13.5-17.5); IMMATURE GRANULOCYTES 0.4 % (0-5); MCH 24.7 pg (26.0-34.0); MCHC 29.6 g/dL (31.0-37.0); MCV 83.5 fL (80.0-100.0); MEAN PLATELET VOLUME 9.8 fL (7.4-10.4); MONOCYTES 15.4 % (2-11); NEUTROPHILS 67.9 % (40-80); PLATELET COUNT 399 10x3/uL (130-400); RBC 4.61 10x6/uL (4.20-6.10); RDW 17.5 % (11.5-14.5)
[2019-03-21 06:40] LABS: ALBUMIN 1.2 g/dL (3.4-5.0); ALKALINE PHOSPHATASE 285 U/L (46-116); ALT (SGPT) 45 U/L (10-68); BILIRUBIN - TOTAL 0.42 mg/dL (0.2-1.3); CALC OSMOLALITY 284 mosm/kg (275-300); CALCIUM 7.8 mg/dL (8.5-10.1); CARBON DIOXIDE 36.7 mmol/L (21.0-32.0); CHLORIDE - SERUM 101 mmol/L (98-107); CREATININE - SERUM 0.8 mg/dL (0.6-1.3); GLUCOSE 95 mg/dL (74-106); MAGNESIUM - SERUM 1.9 mg/dL (1.8-2.4); POTASSIUM - SERUM 3.9 mmol/L (3.5-5.1); PROTEIN - SERUM 6.4 g/dL (6.4-8.2); SODIUM 140 mmol/L (136-145); UREA NITROGEN 28 mg/dL (7-18); eGFR NON AFRICAN AMERICAN > 90 mL/min (90-120)
[2019-03-21 07:59] VITALS: BP 97/58
--- NOTE | 2019-03-21 08:49 | NUR ---
PT AWAKE AND ORIENTED, LYING IN BED GOING THROUGH HIS BAGS LOOKING FOR VARIOUS SCRAPS OF PAPER HE'S WRITTEN INFORMATION DOWN ON. C/O OF HIS HEAD ITCHING WHEERE THE SCABS ARE. ALL QUESTIONS ANSWERED TO THE BEST OF MY ABILITY. NO FAMILY PRESENT AT BEDSIDE. CL IN REACH, SRX2.
--- NOTE | 2019-03-21 09:24 | NUR ---
WENT IN ROOM WITH PHYSCIAL THERAPY AND TECH TO ASSIST THE PT WITH BATHING OFF, APPPLING VARIOUS CREAMS/POWDERS. PT ADAMATELY REFUSED PHYICAL THERAPY AT THIS TIME STATING "I HAVEN'T EVEN AT [facility] BREAKFAST YET!", "I JUST CAN'T DO ANYTHING RIGHT NOW!". SET PT UP WITH BREAKFAST, HE STATES AFTER HE EATS HE MAY FEEL UP FOR IT. CL IN REACH, SRX2.
--- NOTE | 2019-03-21 09:43 | NUR ---
I have reviewed this patient and I concur with the Shift Assessment completed by the Licensed Practical Nurse today this shift.
--- NOTE | 2019-03-21 10:19 | NUR ---
PT RESTING POST BREAKFAST, WISHES TO BE LEFT ALONE FOR A "LONG TIME". WILL ACCOMIDATE. CL INR EACH, SRX2.
[2019-03-21 12:13] VITALS: BP 106/61
--- NOTE | 2019-03-21 14:58 | NUR ---
PT CALLED FOR ASSITANCE APPLYING CREAM TO HIS BOTTOM, STATING HE CAN'T REACH ALL THE PLACES. ASSITED. C/O NOT YET SEEING THE DR, INFOMRED HIM THEY WERE ROUNDING AND WOULD BE THERE SOON. ASKED AND MATT TO MAKE SURE THEY SPOKE TO THE PT, PER HIS REQUEST. CL IN REACH, SRX2.
[2019-03-21 17:09] VITALS: BP 103/78
--- NOTE | 2019-03-21 18:53 | NUR ---
PT AWAKE AND ORIENTED, STILL REFUSING BATH AND I/V. APPARENTLY BOUGHT HIS OWN WHEELCHAIR, HAVE NOT SEEN IT ARRIVE OF YET. WILL MONITOR. NO COMPLAINTS OR CONCERNS AT THIS TIME, ALL QUESTIONS ANSWERED AT THIS TIME. CL IN REACH, SRX2.
--- NOTE | 2019-03-21 19:30 | NUR ---
RECEIVED UP IN BED WITH EYES CLOSED. EASILY AROUSES WITH VERBAL STIMULI. ORIENTED X4. USES URINAL IN BED. F/C INTACT WITH CLEAR STRAW COLOR URINE IN BEDSIDE DRAINAGE BAG. LOWER EXTRREMITIES FROM KNEE DOWN. SCALEY AND DISCOLORED. DSG TO RIGHT AND LEFT BUTTOCKS. DENIES ANY NEEDS AT THIS TIME.
[2019-03-21 20:00] VITALS: BP 119/78
[2019-03-22] VITALS: BP 115/78
[2019-03-22 05:28] LABS: BASOPHILS 0.4 % (0-2); EOSINOPHILS 4.4 % (0-7); HEMATOCRIT 39.4 % (42.0-54.0); HEMOGLOBIN 11.8 g/dL (13.5-17.5); IMMATURE GRANULOCYTES 0.5 % (0-5); LYMPHOCYTES 14.5 % (15-50); MCHC 29.9 g/dL (31.0-37.0); MCV 83.5 fL (80.0-100.0); MEAN PLATELET VOLUME 9.9 fL (7.4-10.4); NEUTROPHILS 67.2 % (40-80); PLATELET COUNT 418 10x3/uL (130-400); RBC 4.72 10x6/uL (4.20-6.10); RDW 17.2 % (11.5-14.5); WBC 9.8 10x3/uL (4.8-10.8)
[2019-03-22 05:41] LABS: ALBUMIN 1.3 g/dL (3.4-5.0); ALKALINE PHOSPHATASE 323 U/L (46-116); ALT (SGPT) 48 U/L (10-68); BILIRUBIN - TOTAL 0.34 mg/dL (0.2-1.3); CALC OSMOLALITY 287 mosm/kg (275-300); CARBON DIOXIDE 36.1 mmol/L (21.0-32.0); CHLORIDE - SERUM 101 mmol/L (98-107); CREATININE - SERUM 0.8 mg/dL (0.6-1.3); GLUCOSE 125 mg/dL (74-106); MAGNESIUM - SERUM 1.9 mg/dL (1.8-2.4); POTASSIUM - SERUM 4.1 mmol/L (3.5-5.1); PROTEIN - SERUM 6.7 g/dL (6.4-8.2); SODIUM 141 mmol/L (136-145); UREA NITROGEN 29 mg/dL (7-18); eGFR NON AFRICAN AMERICAN > 90 mL/min (90-120)
--- NOTE | 2019-03-22 07:15 | NUR ---
RECIEVE REPORT. ALERT AND ORIENTED X4. SITTING UP IN BED. CHRONIC RODGERS DRAINING BY GRAVITY. FREE FROM KINKS. DENIES ANY NEEDS AT THIS TIME. CONTINUE PLAN OF CARE AND SAFETY PRECAUTIONS.
[2019-03-22 08:00] VITALS: BP 135/86
--- NOTE | 2019-03-22 11:48 | MORECARE ---
CASE MANAGEMENT DISCHARGE SUMMARY PATIENT: MAKENZIE DESAI UNIT: [id number] ADM DATE: 03/19/19 AGE: 68 : [birth year] SEX: M ROOM/BED: D.2136 AUTHOR: СЕРГЕЙDOC PHYSICIAN: REFERRING PHYSICIAN: SOO EASTON MD DATE OF SERVICE: 03/22/19 Discharge Plan Patient Name: MAKENZIE DESAI Facility: [facility]:[place] : 07/23/1950 Planned Disposition: Penitentiary Facility Anticipated Discharge Date: 03/19/19 Discharge Date: Expected LOS: 1 Initial Reviewer: [id number] Initial Review Date: 03/19/2019 Generated: 03/22/19 12:48 pm Comments DCP- Discharge Planning Updated by [id number]: Broderick Yo on 03/19/19 4:[address] Patient Name: MAKENZIE DESAI Admission Status: ER Accout number: [id number] Admission Date: 03-19-2019 : 07-23-1950 Admission Diagnosis: Attending: SOO EASTON Current LOS: 1 Anticipated DC Date: 03-19-2019 Planned Disposition: Penitentiary Facility Primary Insurance: MEDICARE A & B PLANNED EXTERNAL PROVIDER: [facility] OR [facility] HOMELESS DOMICILLARY Discharge Planning Comments: CM MET WITH PT IN ROOM TO DISCUSS DISCHARGE PLANNING AND NEEDS. PT REPORTS BEING HOMELESS. PT STATES HE DID NOT HAVE TWO GUNS AT [facility], PT STATES THEY WERE JUST "BB GUNS" AND HE GAVE THEM TO THE POLICE TO HOLD BECAUSE THE LITTLE "BLACK AIDES" AT [place] WERE THROWING A FIT ABOUT THEM. PT DOES NOT DENY HAVING KNIVES IN HIS BAG THAT THE POLICE ALSO HAVE NOW AND THAT HIS EX WILL DIRECTOR OF FOOD AND BEVERAGE SERVICES FOR HIM. PT STATES HE HAS A MEDICAL MARIJUANA CARD AND HE STILL HAS ALL OF HIS MARIJUANA, THE POLICE CANNOT TAKE WHAT HE HAS LEGALLY. PT HAS NO MEDICAL EQUIPMENT WITH HIM AND STATES HE WILL HAVE HIS ELECTRIC WHEELCHAIR BROUGHT TO HIM WHEN HE GETS INTO A PLACE. PT WAS RECENTLY IN THE [place] [facility] BEFORE MOVING IN WITH A ROOMMATE IN [place] AND THAT ROOMMATE STOLE PT'S BELONGINGS AND LEFT. CM DISCUSSED THAT PT IS NOT APPROPRIATE FOR HOSPTIAL ADMISSION AND THAT PT NEEDS A PLACE TO LIVE, THE HOSPITAL IS NOT A PLACE TO LIVE. CM ATTEMPTED TO ASSIST PT IN EXPLORING PERSONAL RESOURCES, PT STATES THAT HIS EX LILIAM AND DAUGHTER TRELL ARE NOT ABLE TO HELP AND THEY DON'T KNOW ANYONE WHO CAN. CM ASKED ABOUT GOING BACK TO [place] [facility] [place], PT STATES HE WORKED THROUGH THE PROGRAM AND CANNOT GO BACK NOW. PT WANTS CM TO GET HIM INTO A CORRECTION. CM EXPLAINED THAT PT CANNOT GET INTO [facility], [facility], [facility], [facility], [facility] OR [facility]. PT BEGAN TO ARGUE ABOUT WHY THEY WILL NOT ACCEPT HIM. CM EXPLAINED AT THIS TIME, DISCUSSING WHY THEY ARE NOT ACCEPTING IS NOT PRODUCTIVE. CM ASKED PT IF HE WILL SIGN A STATEWIDE CONSENT FOR ANY CORRECTION. PT SIGNED CONSENT STATING HE HAS NO CHOICE. PT STATES HE CANNOT STAY IN A HOMELESS JAIL BECAUSE OF HIS "MEDICAL NEEDS" AND BEING CONFINED TO ELECTRIC WHEELCHAIR. PT WILL CONSENT TO TRANSFER TO THE [place] IF THEY WILL ACCEPT HIM. CM CALLED [place] EXPEDITOR, , ASKED FOR REHAB OR HOMELESS PLACEMENT IN [facility]. CM CALLED JORGE LUIS TORIBIO, [place] RISK PROFESSIONAL, , EXT [phone], LEFT DETAILED MESSAGE ASKING FOR ASSITANCE WITH PLACEMENT. CM CALLED CHELA [facility], [place] HOMELESS DOMICILLARY COORDINATOR, , LEFT DETAILED MESSAGE. CM RECEIVED RETURN CALL FROM DANIEL MO , m OF [facility] WHO REPORTS PT IS NOT APPROPRIATE FOR REHAB SERVICES AND ACCORDING TO THERAPY NOTES FROM HOSPITAL REVIEWED BY CM, PT IS AT "BASELINE LEVEL OF FUNCTIONING." CM RECEIVED CALL FROM DR. SANTIZO, , OF [place] SUBSTANCE [facility]BUSE PRO[facility], SHE HAS RECEIVED CALL FROM PT ASKING FOR MEDICAL TRANSFER TO [place]. CM PROVIDED. CM REVIEWED SITUATION, DR. SANTIZO AGREES THAT PT IS NOT APPRORIATE FOR MEDICAL TRANSFER TO [facility] AND WILL SEND MESSAGE TO HOMELESS "DOM" FOR POSSIBLE ASSISTANCE. CM CALLED AND SPOKE TO SHOBHA OF [facility], , ASKED FOR ASSISTANCE WITH PLACEMENT, PROVIDED DETAILED INFORMATION TO PROBLEMS AT [facility] FOR PLACEMENT IN REHAB AND TECHNOLOGY LEAD CARE. SHOBHA WILL SCREEN FOR ADMISSION; CM FAXED REFERRAL TO [facility] AT [phone]. CM WAITING ON RETURN CALL FROM [facility]; CM WAITING ADMISSION DETERMINATION FROM [facility] FOR REHAB TO TECHNOLOGY LEAD CARE. PATIENT WAS TESTED FOR OXGYEN ON 03-19-18, WAS 87% ON ROOM AIR AT REST, 96% ON 2LNC AT REST. PT WILL NEED OXYGEN ARRANGEMENT IS HE IS NOT DISCHARGED TO NURSING FACILITY. Rerecording Mixer: Broderick Yo DCPIA - Discharge Planning Initial Assessment Updated by [id number]: Broderick Yo on 03/19/19 12:29 pm * Is the patient Alert and Oriented? Yes * How many steps to enter\\exit or inside your home? NONE * PCP DR. BARRERA * [facility] [place] * Preadmission Environment Home with Family * ADLs Independent * Equipment Cane Power Chair or Electric Scooter * Other Equipment [employer] * List name and contact numbers for known caregivers / representatives who currently or will assist patient after discharge: LILIAM DESAI, EX , TRELL DESAI, DTR, * Verbal permission to speak to the caregivers and representatives has been obtained from the patient. No * Community resources currently utilized None * Please name any agencies selected above. NONE * Additional services required to return to the preadmission environment? Yes * Can the patient safely return to the preadmission environment? No * Has this patient been hospitalized within the prior 30 days at any hospital? Yes External Providers External Provider: [facility] Next Contact Date: 03/19/2019 Service Request Date: Service Type: Resolution: Reviewer: Comments: External Provider: [facility] Next Contact Date: 03/22/2019 Service Request Date: Service Type: Resolution: Reviewer: Comments: Coverage Notice Reviewer: [id number] - Broderick Yo Notice Issued Date-Time: 03/19/2019 11:45 Notice Type: Patient Choice Letter Notice Delivered To: Patient Relationship to Patient: Precinct Police Sergeant Name: Delivery Method: HAND - Hand Delivered Colette Days: Prior Verbal Notification: Recipient Understood Notice: Yes Recipient Signature: Yes Med Rec Note Co-signed by Attending: Coverage Notice Comment: ANY NURSING FACILITY Last DP export: 03/19/19 4:27 pm Patient Name: MAKENZIE DESAI Page 88791 at 1148 All edits/amendments must be made on the electronic document DICTATION DATE: 03/22/19 1148 QUALITY SYSTEM MANAGER: OSMEL 03/22/19 1148 RPT#: [id number] DC DATE: STATUS: ADM IN [facility] [address] [place] [address] END OF REPORT
--- NOTE | 2019-03-22 11:57 | MORECARE ---
CASE MANAGEMENT DISCHARGE SUMMARY PATIENT: MAKENZIE DESAI UNIT: [id number] ADM DATE: 03/19/19 AGE: 68 : [birth year] SEX: M ROOM/BED: D.2136 AUTHOR: СЕРГЕЙDOC PHYSICIAN: REFERRING PHYSICIAN: SOO EASTON MD DATE OF SERVICE: 03/22/19 Discharge Plan Patient Name: MAKENZIE DESAI Facility: [facility]:[place] : 07/23/1950 Planned Disposition: Halfway Facility Anticipated Discharge Date: 03/19/19 Discharge Date: Expected LOS: 1 Initial Reviewer: [id number] Initial Review Date: 03/19/2019 Generated: 03/22/19 12:56 pm Comments DCP- Discharge Planning Updated by [id number]: Broderick Yo on 03/19/19 4:[address] Patient Name: MAKENZIE DESAI Admission Status: ER Accout number: [id number] Admission Date: 03-19-2019 : 07-23-1950 Admission Diagnosis: Attending: SOO EASTON Current LOS: 1 Anticipated DC Date: 03-19-2019 Planned Disposition: Halfway Facility Primary Insurance: MEDICARE A & B PLANNED EXTERNAL PROVIDER: [facility] OR [facility] HOMELESS DOMICILLARY Discharge Planning Comments: CM MET WITH PT IN ROOM TO DISCUSS DISCHARGE PLANNING AND NEEDS. PT REPORTS BEING HOMELESS. PT STATES HE DID NOT HAVE TWO GUNS AT [facility], PT STATES THEY WERE JUST "BB GUNS" AND HE GAVE THEM TO THE POLICE TO HOLD BECAUSE THE LITTLE "BLACK AIDES" AT [place] WERE THROWING A FIT ABOUT THEM. PT DOES NOT DENY HAVING KNIVES IN HIS BAG THAT THE POLICE ALSO HAVE NOW AND THAT HIS EX WILL SANDFILL OPERATOR SURFACE FOR HIM. PT STATES HE HAS A MEDICAL MARIJUANA CARD AND HE STILL HAS ALL OF HIS MARIJUANA, THE POLICE CANNOT TAKE WHAT HE HAS LEGALLY. PT HAS NO MEDICAL EQUIPMENT WITH HIM AND STATES HE WILL HAVE HIS ELECTRIC WHEELCHAIR BROUGHT TO HIM WHEN HE GETS INTO A PLACE. PT WAS RECENTLY IN THE [place] HOMELESS PROGRAM BEFORE MOVING IN WITH A ROOMMATE IN [place] AND THAT ROOMMATE STOLE PT'S BELONGINGS AND LEFT. CM DISCUSSED THAT PT IS NOT APPROPRIATE FOR HOSPTIAL ADMISSION AND THAT PT NEEDS A PLACE TO LIVE, THE HOSPITAL IS NOT A PLACE TO LIVE. CM ATTEMPTED TO ASSIST PT IN EXPLORING PERSONAL RESOURCES, PT STATES THAT HIS EX LILIAM AND DAUGHTER TRELL ARE NOT ABLE TO HELP AND THEY DON'T KNOW ANYONE WHO CAN. CM ASKED ABOUT GOING BACK TO [place], PT STATES HE WORKED THROUGH THE PROGRAM AND CANNOT GO BACK NOW. PT WANTS CM TO GET HIM INTO A DETENTION. CM EXPLAINED THAT PT CANNOT GET INTO [facility], [facility], [facility], [facility], [facility] OR [place]. PT BEGAN TO ARGUE ABOUT WHY THEY WILL NOT ACCEPT HIM. CM EXPLAINED AT THIS TIME, DISCUSSING WHY THEY ARE NOT ACCEPTING IS NOT PRODUCTIVE. CM ASKED PT IF HE WILL SIGN A STATEWIDE CONSENT FOR ANY DETENTION. PT SIGNED CONSENT STATING HE HAS NO CHOICE. PT STATES HE CANNOT STAY IN A HOMELESS CARE HOME BECAUSE OF HIS "MEDICAL NEEDS" AND BEING CONFINED TO ELECTRIC WHEELCHAIR. PT WILL CONSENT TO TRANSFER TO THE [place] IF THEY WILL ACCEPT HIM. CM CALLED [place] EXPEDITOR, , ASKED FOR REHAB OR HOMELESS PLACEMENT IN [facility]. CM CALLED JORGE LUIS TORIBIO, [place] MANAGER BUSINESS INFORMATION, , EXT [phone], LEFT DETAILED MESSAGE ASKING FOR ASSITANCE WITH PLACEMENT. CM CALLED CHELA BLACKWELL, [place] HOMELESS DOMICILLARY COORDINATOR, , LEFT DETAILED MESSAGE. CM RECEIVED RETURN CALL FROM DANIEL MO , m OF [place] [facility] WHO REPORTS PT IS NOT APPROPRIATE FOR REHAB SERVICES AND ACCORDING TO THERAPY NOTES FROM HOSPITAL REVIEWED BY CM, PT IS AT "BASELINE LEVEL OF FUNCTIONING." CM RECEIVED CALL FROM DR. SANTIZO, , OF [place] SUBSTANCE ABUSE PROGRAM, SHE HAS RECEIVED CALL FROM PT ASKING FOR MEDICAL TRANSFER TO [place]. CM PROVIDED. CM REVIEWED SITUATION, DR. SANTIZO AGREES THAT PT IS NOT APPRORIATE FOR MEDICAL TRANSFER TO [place] AND WILL SEND MESSAGE TO HOMELESS "DOM" FOR POSSIBLE ASSISTANCE. CM CALLED AND SPOKE TO SHOBHA OF [facility], , ASKED FOR ASSISTANCE WITH PLACEMENT, PROVIDED DETAILED INFORMATION TO PROBLEMS AT [place] FOR PLACEMENT IN REHAB AND EMERGENCY ROOM SPECIALIST CARE. SHOBHA WILL SCREEN FOR ADMISSION; CM FAXED REFERRAL TO [facility] AT [phone]. CM WAITING ON RETURN CALL FROM [facility]; CM WAITING ADMISSION DETERMINATION FROM [facility] FOR REHAB TO EMERGENCY ROOM SPECIALIST CARE. PATIENT WAS TESTED FOR OXGYEN ON 03-19-18, WAS 87% ON ROOM AIR AT REST, 96% ON 2LNC AT REST. PT WILL NEED OXYGEN ARRANGEMENT IS HE IS NOT DISCHARGED TO NURSING FACILITY. Nursing Program Coordinator: Broderick Yo DCPIA - Discharge Planning Initial Assessment Updated by [id number]: Broderick Yo on 03/19/19 12:29 pm * Is the patient Alert and Oriented? Yes * How many steps to enter\\exit or inside your home? NONE * PCP DR. BARRERA * [place] * Preadmission Environment Home with Family * ADLs Independent * Equipment Cane Power Chair or Electric Scooter * Other Equipment [employer] * List name and contact numbers for known caregivers / representatives who currently or will assist patient after discharge: LILIAM DESAI, EX , TRELL DESAI, DTR, * Verbal permission to speak to the caregivers and representatives has been obtained from the patient. No * Community resources currently utilized None * Please name any agencies selected above. NONE * Additional services required to return to the preadmission environment? Yes * Can the patient safely return to the preadmission environment? No * Has this patient been hospitalized within the prior 30 days at any hospital? Yes External Providers [facility] Next Contact Date: 03/22/2019 Service Request Date: Service Type: Resolution: Reviewer: Comments: Coverage Notice Reviewer: [id number] - Broderick Yo Notice Issued Date-Time: 03/19/2019 11:45 Notice Type: Patient Choice Letter Notice Delivered To: Patient Relationship to Patient: Digital Hardware Design Engineer Name: Delivery Method: HAND - Hand Delivered Colette Days: Prior Verbal Notification: Recipient Understood Notice: Yes Recipient Signature: Yes Med Rec Note Co-signed by Attending: Coverage Notice Comment: ANY NURSING FACILITY Last DP export: 03/22/19 10:48 am Patient Name: MAKENZIE DESAI Page [phone] at 1157 All edits/amendments must be made on the electronic document DICTATION DATE: 03/22/19 1156 PROFESSOR OF COMMUNICATION AND WRITING: OSMEL 03/22/19 1156 RPT#: [id number] DC DATE: STATUS: ADM IN [facility] [address] [place] [address] END OF REPORT
[2019-03-22 12:00] VITALS: BP 122/70
--- NOTE | 2019-03-22 12:06 | MORECARE ---
CASE MANAGEMENT DISCHARGE SUMMARY PATIENT: MAKENZIE DESAI UNIT: [id number] ADM DATE: 03/19/19 AGE: 68 : [birth year] SEX: M ROOM/BED: D.2136 AUTHOR: СЕРГЕЙDOC PHYSICIAN: REFERRING PHYSICIAN: SOO EASTON MD DATE OF SERVICE: 03/22/19 Discharge Plan Patient Name: MAKENZIE DESAI Facility: [facility]:[place] : 07/23/1950 Planned Disposition: Retirement Facility Anticipated Discharge Date: 03/19/19 Discharge Date: Expected LOS: 1 Initial Reviewer: [id number] Initial Review Date: 03/19/2019 Generated: 03/22/19 1:06 pm Comments DCP- Discharge Planning Updated by [id number]: Broderick Yo on 03/19/19 4:[address] Patient Name: MAKENZIE DESAI Admission Status: ER Accout number: [id number] Admission Date: 03-19-2019 : 07-23-1950 Admission Diagnosis: Attending: SOO EASTON Current LOS: 1 Anticipated DC Date: 03-19-2019 Planned Disposition: Retirement Facility Primary Insurance: MEDICARE A & B PLANNED EXTERNAL PROVIDER: [facility] OR [facility] HOMELESS DOMICILLARY Discharge Planning Comments: CM MET WITH PT IN ROOM TO DISCUSS DISCHARGE PLANNING AND NEEDS. PT REPORTS BEING HOMELESS. PT STATES HE DID NOT HAVE TWO GUNS AT [facility], PT STATES THEY WERE JUST "BB GUNS" AND HE GAVE THEM TO THE POLICE TO HOLD BECAUSE THE LITTLE "BLACK AIDES" AT [place] WERE THROWING A FIT ABOUT THEM. PT DOES NOT DENY HAVING KNIVES IN HIS BAG THAT THE POLICE ALSO HAVE NOW AND THAT HIS EX WILL COMMUNICATIONS ASSISTANT FOR HIM. PT STATES HE HAS A MEDICAL MARIJUANA CARD AND HE STILL HAS ALL OF HIS MARIJUANA, THE POLICE CANNOT TAKE WHAT HE HAS LEGALLY. PT HAS NO MEDICAL EQUIPMENT WITH HIM AND STATES HE WILL HAVE HIS ELECTRIC WHEELCHAIR BROUGHT TO HIM WHEN HE GETS INTO A PLACE. PT WAS RECENTLY IN THE [place] BEFORE MOVING IN WITH A ROOMMATE IN [place] AND THAT ROOMMATE STOLE PT'S BELONGINGS AND LEFT. CM DISCUSSED THAT PT IS NOT APPROPRIATE FOR HOSPTIAL ADMISSION AND THAT PT NEEDS A PLACE TO LIVE, THE HOSPITAL IS NOT A PLACE TO LIVE. CM ATTEMPTED TO ASSIST PT IN EXPLORING PERSONAL RESOURCES, PT STATES THAT HIS EX LILIAM AND DAUGHTER TRELL ARE NOT ABLE TO HELP AND THEY DON'T KNOW ANYONE WHO CAN. CM ASKED ABOUT GOING BACK TO [place], PT STATES HE WORKED THROUGH THE PROGRAM AND CANNOT GO BACK NOW. PT WANTS CM TO GET HIM INTO A INTERMEDIATE. CM EXPLAINED THAT PT CANNOT GET INTO [facility], [facility], [facility], [facility], [facility] OR [place]. PT BEGAN TO ARGUE ABOUT WHY THEY WILL NOT ACCEPT HIM. CM EXPLAINED AT THIS TIME, DISCUSSING WHY THEY ARE NOT ACCEPTING IS NOT PRODUCTIVE. CM ASKED PT IF HE WILL SIGN A STATEWIDE CONSENT FOR ANY INTERMEDIATE. PT SIGNED CONSENT STATING HE HAS NO CHOICE. PT STATES HE CANNOT STAY IN A HOMELESS USP BECAUSE OF HIS "MEDICAL NEEDS" AND BEING CONFINED TO ELECTRIC WHEELCHAIR. PT WILL CONSENT TO TRANSFER TO THE [place] IF THEY WILL ACCEPT HIM. CM CALLED [place] EXPEDITOR, , ASKED FOR REHAB OR HOMELESS PLACEMENT IN [facility]. CM CALLED JORGE LUIS TORIBIO, [place] PHYSICAL SECURITY MANAGER, , EXT [phone], LEFT DETAILED MESSAGE ASKING FOR ASSITANCE WITH PLACEMENT. CM CALLED CHELA BLACKWELL, [place] HOMELESS DOMICILLARY COORDINATOR, , LEFT DETAILED MESSAGE. CM RECEIVED RETURN CALL FROM DANIEL MO , m OF [place] [facility] WHO REPORTS PT IS NOT APPROPRIATE FOR REHAB SERVICES AND ACCORDING TO THERAPY NOTES FROM HOSPITAL REVIEWED BY CM, PT IS AT "BASELINE LEVEL OF FUNCTIONING." CM RECEIVED CALL FROM DR. SANTIZO, , OF [place] SUBSTANCE ABUSE PROGRAM, SHE HAS RECEIVED CALL FROM PT ASKING FOR MEDICAL TRANSFER TO [place]. CM PROVIDED. CM REVIEWED SITUATION, DR. SANTIZO AGREES THAT PT IS NOT APPRORIATE FOR MEDICAL TRANSFER TO [place] AND WILL SEND MESSAGE TO HOMELESS "DOM" FOR POSSIBLE ASSISTANCE. CM CALLED AND SPOKE TO SHOBHA OF [place] [facility], , ASKED FOR ASSISTANCE WITH PLACEMENT, PROVIDED DETAILED INFORMATION TO PROBLEMS AT [place] FOR PLACEMENT IN REHAB AND RETIREMENT CARE. SHOBHA WILL SCREEN FOR ADMISSION; CM FAXED REFERRAL TO [place] [place] [facility] AT [phone]. CM WAITING ON RETURN CALL FROM [facility]; CM WAITING ADMISSION DETERMINATION FROM [facility] FOR REHAB TO IMPLEMENTATION LEAD CARE. PATIENT WAS TESTED FOR OXGYEN ON 03-19-18, WAS 87% ON ROOM AIR AT REST, 96% ON 2LNC AT REST. PT WILL NEED OXYGEN ARRANGEMENT IS HE IS NOT DISCHARGED TO NURSING FACILITY. Temperature Regulator: Broderick Yo DCPIA - Discharge Planning Initial Assessment Updated by [id number]: Broderick Yo on 03/19/19 12:29 pm * Is the patient Alert and Oriented? Yes * How many steps to enter\\exit or inside your home? NONE * PCP DR. BARRERA * [place] * Preadmission Environment Home with Family * ADLs Independent * Equipment Cane Power Chair or Electric Scooter * Other Equipment [employer] * List name and contact numbers for known caregivers / representatives who currently or will assist patient after discharge: LILIAM DESAI, EX , TRELL DESAI, DTR, * Verbal permission to speak to the caregivers and representatives has been obtained from the patient. No * Community resources currently utilized None * Please name any agencies selected above. NONE * Additional services required to return to the preadmission environment? Yes * Can the patient safely return to the preadmission environment? No * Has this patient been hospitalized within the prior 30 days at any hospital? Yes External Providers External Provider: OTHER-OTHER Next Contact Date: 03/22/2019 Service Request Date: Service Type: Resolution: Reviewer: Comments: Coverage Notice Reviewer: [id number] - Broderick Yo Notice Issued Date-Time: 03/19/2019 11:45 Notice Type: Patient Choice Letter Notice Delivered To: Patient Relationship to Patient: Video Operator Name: Delivery Method: HAND - Hand Delivered Colette Days: Prior Verbal Notification: Recipient Understood Notice: Yes Recipient Signature: Yes Med Rec Note Co-signed by Attending: Coverage Notice Comment: ANY NURSING FACILITY Last DP export: 03/22/19 10:57 am Patient Name: MAKENZIE DESAI Page 56715 at 1206 All edits/amendments must be made on the electronic document DICTATION DATE: 03/22/19 1206 TRANSFORMER MECHANIC: OSMEL 03/22/19 1206 RPT#: [id number] DC DATE: STATUS: ADM IN [facility] [address] [place] [address] END OF REPORT
--- NOTE | 2019-03-22 12:26 | MORECARE ---
CASE MANAGEMENT DISCHARGE SUMMARY PATIENT: MAKENZIE DESAI UNIT: [id number] ADM DATE: 03/19/19 AGE: 68 : [birth year] SEX: M ROOM/BED: D.2136 AUTHOR: СЕРГЕЙ,DOC PHYSICIAN: REFERRING PHYSICIAN: SOO EASTON MD DATE OF SERVICE: 03/22/19 Discharge Plan Patient Name: MAKENZIE DESAI Facility: [facility]:[place] : 07/23/1950 Planned Disposition: Long Term Facility Anticipated Discharge Date: 03/19/19 Discharge Date: Expected LOS: 1 Initial Reviewer: [id number] Initial Review Date: 03/19/2019 Generated: 03/22/19 1:26 pm Comments DCP- Discharge Planning Updated by [id number]: Broderick Yo on 03/22/19 11:[address] Patient Name: MAKENZIE DESAI Encounter No: [id number] : 07-23-1950 Primary Insurance: MEDICARE A & B Anticipated DC Date: 03-19-2019 Planned Disposition: Long Term Facility External Planned Provider: [facility] ANY ACCEPTING FACILITY DCP follow-up note: CM RECEIVED TWO CALLS FROM PATIENT WHO STATES THAT HE HAS TALKED TO THE [facility] AND SHE GAVE HIM A LIST OF NURSING HOMES TO GO TO. PT INFORMED CM THAT HE WAS TOLD [facility], [facility] AND SEVERAL OTHERS THAT HE DOES NOT KNOW AND DID NOT WRITE THEM DOWN. PT STATES HE WANTS TO GO A CARE HOME TODAY IF POSSIBLE. [facility], . CM CALLED AND SPOKE TO ELOISA, , PT IS ON DO NOT TAKE LIST FROM [facility]. CM FAXED REFERRAL TO [facility], AND TO [facility] ([facility]IL[facility]), , CALLED AND SPOKE TO CECILIA OF BOTH HOMES AT [phone], SHE WILL SCREEN FOR ADMISSION AND ATTEMPT TO FIND PLACEMENT FOR PATIENT. CM SPOKE TO ANNA OF NURSING CONSULTANTS, PT HAS BEEN [facility]CLIN[facility] BY [facility], [place] [facility]. PT HAS BEEN DECLINED BY JULIANA KAUFMAN, [facility] (AND ALL [facility] [place]), [place], [facility] AND [facility] AND [facility]. CM ADVISED BY SPOOL MAKER NURSE THAT PT HAS ELECTRIC WHEELCHAIR NOW IN HIS ROOM. CM WAITING ON RETURN CALL FROM CHELA OF [facility] [place]; CM WAITING ADMISSION DETERMINATION FROM [facility], [facility] AND [facility], [facility] AND [facility] IN [place]. PT WILL NEED OXYGEN ARRANGEMENT IS HE IS NOT DISCHARGED TO NURSING FACILITY. Clothing Presser: Broderick Yo DCP- Discharge Planning Updated by [id number]: Broderick Yo on 03/19/19 4:[address] Patient Name: MAKENZIE DESAI Admission Status: ER Accout number: [id number] Admission Date: 03-19-2019 : 07-23-1950 Admission Diagnosis: Attending: SOO EASTON Current LOS: 1 Anticipated DC Date: 03-19-2019 Planned Disposition: Long Term Facility Primary Insurance: MEDICARE A & B PLANNED EXTERNAL PROVIDER: [facility] OR [facility] Discharge Planning Comments: CM MET WITH PT IN ROOM TO DISCUSS DISCHARGE PLANNING AND NEEDS. PT REPORTS BEING HOMELESS. PT STATES HE DID NOT HAVE TWO GUNS AT [facility], PT STATES THEY WERE JUST "BB GUNS" AND HE GAVE THEM TO THE POLICE TO HOLD BECAUSE THE LITTLE "BLACK AIDES" AT [place] WERE THROWING A FIT ABOUT THEM. PT DOES NOT DENY HAVING KNIVES IN HIS BAG THAT THE POLICE ALSO HAVE NOW AND THAT HIS EX WILL PRINCIPAL ASSOCIATE FOR HIM. PT STATES HE HAS A MEDICAL MARIJUANA CARD AND HE STILL HAS ALL OF HIS MARIJUANA, THE POLICE CANNOT TAKE WHAT HE HAS LEGALLY. PT HAS NO MEDICAL EQUIPMENT WITH HIM AND STATES HE WILL HAVE HIS ELECTRIC WHEELCHAIR BROUGHT TO HIM WHEN HE GETS INTO A PLACE. PT WAS RECENTLY IN THE [place] HOM[facility] BEFORE MOVING IN WITH A ROOMMATE IN [place] AND THAT ROOMMATE STOLE PT'S BELONGINGS AND LEFT. CM DISCUSSED THAT PT IS NOT APPROPRIATE FOR HOSPTIAL ADMISSION AND THAT PT NEEDS A PLACE TO LIVE, THE HOSPITAL IS NOT A PLACE TO LIVE. CM ATTEMPTED TO ASSIST PT IN EXPLORING PERSONAL RESOURCES, PT STATES THAT HIS EX LILIAM AND DAUGHTER TRELL ARE NOT ABLE TO HELP AND THEY DON'T KNOW ANYONE WHO CAN. CM ASKED ABOUT GOING BACK TO [place] HOMELESS [place]GRAM, PT STATES HE WORKED THROUGH THE PROGRAM AND CANNOT GO BACK NOW. PT WANTS CM TO GET HIM INTO A CARE HOME. CM EXPLAINED THAT PT CANNOT GET INTO [facility], [facility], [facility], [facility], [facility] OR [place]. PT BEGAN TO ARGUE ABOUT WHY THEY WILL NOT ACCEPT HIM. CM EXPLAINED AT THIS TIME, DISCUSSING WHY THEY ARE NOT ACCEPTING IS NOT PRODUCTIVE. CM ASKED PT IF HE WILL SIGN A STATEWIDE CONSENT FOR ANY CARE HOME. PT SIGNED CONSENT STATING HE HAS NO CHOICE. PT STATES HE CANNOT STAY IN A HOMELESS SENIOR LIVING BECAUSE OF HIS "MEDICAL NEEDS" AND BEING CONFINED TO ELECTRIC WHEELCHAIR. PT WILL CONSENT TO TRANSFER TO THE [place] IF THEY WILL ACCEPT HIM. CM CALLED [place] EXPEDITOR, , ASKED FOR REHAB OR HOMELESS PLACEMENT IN [facility]. CM CALLED JORGE LUIS TORIBIO, [place] PRINT DEVELOPER, , EXT [phone], LEFT DETAILED MESSAGE ASKING FOR ASSITANCE WITH PLACEMENT. CM CALLED CHELA BLACKWELL, [place] HOMELESS DOMICILLARY COORDINATOR, , LEFT DETAILED MESSAGE. CM RECEIVED RETURN CALL FROM DANIEL MO , O OF [facility] RE[facility] WHO REPORTS PT IS NOT APPROPRIATE FOR REHAB SERVICES AND ACCORDING TO THERAPY NOTES FROM HOSPITAL REVIEWED BY CM, PT IS AT "BASELINE LEVEL OF FUNCTIONING." CM RECEIVED CALL FROM DR. SANTIZO, , OF [place] SUBSTANCE ABUSE PROGRAM, SHE HAS RECEIVED CALL FROM PT ASKING FOR MEDICAL TRANSFER TO [facility]. CM PROVIDED. CM REVIEWED SITUATION, DR. SANTIZO AGREES THAT PT IS NOT APPRORIATE FOR MEDICAL TRANSFER TO ID AND WILL SEND MESSAGE TO HOMELESS "DOM" FOR POSSIBLE ASSISTANCE. CM CALLED AND SPOKE TO SHOBHA OF [facility], , ASKED FOR ASSISTANCE WITH PLACEMENT, PROVIDED DETAILED INFORMATION TO PROBLEMS AT [place] FOR PLACEMENT IN REHAB AND FPC CARE. SHOBHA WILL SCREEN FOR ADMISSION; CM FAXED REFERRAL TO [facility] AT [phone]. CM WAITING ON RETURN CALL FROM CHELA OF [facility] HOMELESS DOMICILLARY; CM WAITING ADMISSION DETERMINATION FROM [facility] FOR REHAB TO FPC CARE. PATIENT WAS TESTED FOR OXGYEN ON 03-19-18, WAS 87% ON ROOM AIR AT REST, 96% ON 2LNC AT REST. PT WILL NEED OXYGEN ARRANGEMENT IS HE IS NOT DISCHARGED TO NURSING FACILITY. Clothing Presser: Broderick Yo DCPIA - Discharge Planning Initial Assessment Updated by [email or web address]: Broderick Yo on 03/19/19 12:29 pm * Is the patient Alert and Oriented? Yes * How many steps to enter\\exit or inside your home? NONE * PCP DR. BARRERA * Pharmacy [facility] IN [place] * Preadmission Environment Home with Family * ADLs Independent * Equipment Cane Power Chair or Electric Scooter * Other Equipment [employer] * List name and contact numbers for known caregivers / representatives who currently or will assist patient after discharge: LILIAM DESAI, EX , TRELL DESAI, DTR, * Verbal permission to speak to the caregivers and representatives has been obtained from the patient. No * Community resources currently utilized None * Please name any agencies selected above. NONE * Additional services required to return to the preadmission environment? Yes * Can the patient safely return to the preadmission environment? No * Has this patient been hospitalized within the prior 30 days at any hospital? Yes External Providers External Provider: [facility] Next Contact Date: 03/22/2019 Service Request Date: Service Type: Resolution: Reviewer: Comments: Coverage Notice Reviewer: [id number] - Broderick Yo Notice Issued Date-Time: 03/19/2019 11:45 Notice Type: Patient Choice Letter Notice Delivered To: Patient Relationship to Patient: Bottler Name: Delivery Method: HAND - Hand Delivered Colette Days: Prior Verbal Notification: Recipient Understood Notice: Yes Recipient Signature: Yes Med Rec Note Co-signed by Attending: Coverage Notice Comment: ANY NURSING FACILITY Last DP export: 03/22/19 11:06 am Patient Name: MAKENZIE DESAI Page 00539 at 1226 All edits/amendments must be made on the electronic document DICTATION DATE: 03/22/19 1226 INGOT SUPERVISOR: OSMEL 03/22/19 1226 RPT#: [id number] DC DATE: STATUS: ADM IN [facility] [address] [place] [address] END OF REPORT
[2019-03-22 16:00] VITALS: BP 115/78
--- NOTE | 2019-03-22 17:22 | MORECARE ---
CASE MANAGEMENT DISCHARGE SUMMARY PATIENT: MAKENZIE DESAI UNIT: [id number] ADM DATE: 03/19/19 AGE: 68 : [birth year] SEX: M ROOM/BED: D.2136 AUTHOR: СЕРГЕЙ,DOC PHYSICIAN: REFERRING PHYSICIAN: SOO EASTON MD DATE OF SERVICE: 03/22/19 Discharge Plan Patient Name: MAKENZIE DESAI [facility] : 07/23/1950 Planned Disposition: [facility] Facility Anticipated Discharge Date: 03/19/19 Discharge Date: Expected LOS: 1 Initial Reviewer: [id number] Initial Review Date: 03/19/2019 Generated: 03/22/19 6:21 pm Comments DCP- Discharge Planning Updated by [id number]: Broderick Yo on 03/22/19 4:[address] Patient Name: MAKENZIE DESAI Encounter No: [id number] : 07-23-1950 Primary Insurance: MEDICARE A & B Anticipated DC Date: 03-19-2019 Planned Disposition: [facility] Facility External Planned Provider: [facility] ANY ACCEPTING FACILITY DCP follow-up note: CM RECEIVED TWO CALLS FROM PATIENT WHO STATES THAT HE HAS T[facility] AND SHE GAVE HIM A LIST OF NURSING HOMES TO GO TO. PT INFORMED CM THAT HE WAS TOLD [facility], [facility] AND SEVERAL OTHERS THAT HE DOES NOT KNOW AND DID NOT WRITE THEM DOWN. PT STATES HE WANTS TO GO A ASSISTED TODAY IF POSSIBLE. [facility], . CM CALLED AND SPOKE TO ELOISA, , PT IS ON DO NOT TAKE LIST FROM [facility]. CM FAXED REFERRAL TO [facility], AND TO [facility] (CECILIA), , CALLED AND SPOKE TO CECILIA OF BOTH HOMES AT [phone], SHE WILL SCREEN FOR ADMISSION AND ATTEMPT TO FIND PLACEMENT FOR PATIENT. CM SPOKE TO ANNA OF NURSING CONSULTANTS, PT HAS BEEN [facility]. PT HAS BEEN DECLINED BY [facility] (AND ALL [facility] IN [place]), [facility] AND [facility] AND [facility]. CM ADVISED BY FACE HARDENER NURSE THAT PT HAS ELECTRIC WHEELCHAIR NOW IN HIS ROOM. CM WAITING ON RETURN CALL FROM [facility]; CM WAITING ADMISSION DETERMINATION FROM [facility], [facility] AND [facility], [facility] [place]. PT WILL NEED OXYGEN ARRANGEMENT IS HE IS NOT DISCHARGED TO NURSING FACILITY. Construction Materials Tester: Broderick Yo Appended by Broderick Yo on 03/22/2019 17:14 SPORTS AGENT: CM RECEIVED CALL FROM CECILIA LONGORIA OF [facility], PT [facility]. SHE HAS NO OTHER HOMES TO SEND REFERRALS TO IN HER GROUP. PT HAS BEEN DECLINED BY [facility] (AND ALL [facility] IN [place]), [facility] AND [facility] AND [facility], [facility]. CM ADVISED BY FACE HARDENER NURSE THAT PT HAS ELECTRIC WHEELCHAIR NOW IN HIS ROOM. CM WAITING ON RETURN CALL FROM [facility]; CM WAITING ADMISSION DETERMINATION FROM [facility] AND [facility]. PT WILL NEED OXYGEN ARRANGEMENT IS HE IS NOT DISCHARGED TO NURSING FACILITY. CM TO CONTINUE TO SEEK ASSISTED CARE FOR PT. Construction Materials Tester: Broderick Yo DCP- Discharge Planning Updated by [id number]: Broderick Yo on 03/19/19 4:[address] Patient Name: MAKENZIE DESAI Admission Status: ER Accout number: [id number] Admission Date: 03-19-2019 : 07-23-1950 Admission Diagnosis: Attending: SOO EASTON Current LOS: 1 Anticipated DC Date: 03-19-2019 Planned Disposition: [facility] Facility Primary Insurance: MEDICARE A & B PLANNED EXTERNAL PROVIDER: [facility] OR [facility] Discharge Planning Comments: CM MET WITH PT IN ROOM TO DISCUSS DISCHARGE PLANNING AND NEEDS. PT REPORTS BEING HOMELESS. PT STATES HE DID NOT HAVE TWO GUNS AT [facility], PT STATES THEY WERE JUST "BB GUNS" AND HE GAVE THEM TO THE POLICE TO HOLD BECAUSE THE LITTLE "BLACK AIDES" AT [place] WERE THROWING A FIT ABOUT THEM. PT DOES NOT DENY HAVING KNIVES IN HIS BAG THAT THE POLICE ALSO HAVE NOW AND THAT HIS EX WILL MANAGER LOGISTIC FOR HIM. PT STATES HE HAS A MEDICAL MARIJUANA CARD AND HE STILL HAS ALL OF HIS MARIJUANA, THE POLICE CANNOT TAKE WHAT HE HAS LEGALLY. PT HAS NO MEDICAL EQUIPMENT WITH HIM AND STATES HE WILL HAVE HIS ELECTRIC WHEELCHAIR BROUGHT TO HIM WHEN HE GETS INTO A PLACE. [place] [facility] BEFORE MOVING IN WITH A ROOMMATE IN [place] AND THAT ROOMMATE STOLE PT'S BELONGINGS AND LEFT. CM DISCUSSED THAT PT IS NOT APPROPRIATE FOR HOSPTIAL ADMISSION AND THAT PT NEEDS A PLACE TO LIVE, THE HOSPITAL IS NOT A PLACE TO LIVE. CM ATTEMPTED TO ASSIST PT IN EXPLORING PERSONAL RESOURCES, PT STATES THAT HIS EX LILIAM AND DAUGHTER TRELL ARE NOT ABLE TO HELP AND THEY DON'T KNOW ANYONE WHO CAN. CM ASKED ABOUT GOING BACK TO [place] [facility], PT STATES HE WORKED THROUGH THE PROGRAM AND CANNOT GO BACK NOW. PT WANTS CM TO GET HIM INTO A ASSISTED. CM EXPLAINED THAT PT CANNOT GET INTO [facility], [facility], [facility], [facility] OR [facility]. PT BEGAN TO ARGUE ABOUT WHY THEY WILL NOT ACCEPT HIM. CM EXPLAINED AT THIS TIME, DISCUSSING WHY THEY ARE NOT ACCEPTING IS NOT PRODUCTIVE. CM ASKED PT IF HE WILL SIGN A STATEWIDE CONSENT FOR ANY ASSISTED. PT SIGNED CONSENT STATING HE HAS NO CHOICE. PT STATES HE CANNOT STAY IN A HOMELESS DETENTION BECAUSE OF HIS "MEDICAL NEEDS" AND BEING CONFINED TO ELECTRIC WHEELCHAIR. PT WILL CONSENT TO TRANSFER TO THE [place] IF THEY WILL ACCEPT HIM. CM CALLED [place] EXPEDITOR, , ASKED FOR REHAB OR HOMELESS PLACEMENT IN [place] [facility]. CM CALLED JORGE LUIS TORIBIO, [place] LOOKBACK COORDINATOR, , EXT [phone], LEFT DETAILED MESSAGE ASKING FOR ASSITANCE WITH PLACEMENT. CM CALLED CHELA BLACKWELL, [place] HOMELESS DOMICILLARY COORDINATOR, , LEFT DETAILED MESSAGE. CM RECEIVED RETURN CALL FROM DANIEL MO , W OF [facility] WHO REPORTS PT IS NOT APPROPRIATE FOR REHAB SERVICES AND ACCORDING TO THERAPY NOTES FROM HOSPITAL REVIEWED BY CM, PT IS AT "BASELINE LEVEL OF FUNCTIONING." CM RECEIVED CALL FROM DR. SANTIZO, , OF [place] [facility], SHE HAS RECEIVED CALL FROM PT ASKING FOR MEDICAL TRANSFER TO [place]. CM PROVIDED. CM REVIEWED SITUATION, DR. SANTIZO AGREES THAT PT IS NOT APPRORIATE FOR MEDICAL TRANSFER TO [place] AND WILL SEND MESSAGE TO HOMELESS "DOM" FOR POSSIBLE ASSISTANCE. CM CALLED AND SPOKE TO SHOBHA OF [facility], , ASKED FOR ASSISTANCE WITH PLACEMENT, PROVIDED DETAILED INFORMATION TO PROBLEMS AT [facility] FOR PLACEMENT IN REHAB AND HIGH HEEL BUILDER CARE. SHOBHA WILL SCREEN FOR ADMISSION; CM FAXED REFERRAL TO [facility] AT [phone]. CM WAITING ON RETURN CALL FROM CHELA [facility]; CM WAITING ADMISSION DETERMINATION FROM [facility] FOR REHAB TO HIGH HEEL BUILDER CARE. PATIENT WAS TESTED FOR OXGYEN ON 03-19-18, WAS 87% ON ROOM AIR AT REST, 96% ON 2LNC AT REST. PT WILL NEED OXYGEN ARRANGEMENT IS HE IS NOT DISCHARGED TO NURSING FACILITY. Construction Materials Tester: Broderick Yo DCPIA - Discharge Planning Initial Assessment Updated by [id number]: Broderick Yo on 03/19/19 12:29 pm * Is the patient Alert and Oriented? Yes * How many steps to enter\\exit or inside your home? NONE * PCP DR. BARRERA * [place] * Preadmission Environment Home with Family * ADLs Independent * Equipment Cane Power Chair or Electric Scooter * Other Equipment [facility] * List name and contact numbers for known caregivers / representatives who currently or will assist patient after discharge: LILIAM DESAI, EX , TRELL DESAI, DTR, * Verbal permission to speak to the caregivers and representatives has been obtained from the patient. No * Community resources currently utilized None * Please name any agencies selected above. NONE * Additional services required to return to the preadmission environment? Yes * Can the patient safely return to the preadmission environment? No * Has this patient been hospitalized within the prior 30 days at any hospital? Yes Coverage Notice Reviewer: [id number] Christian Yo Notice Issued Date-Time: 03/19/2019 11:45 Notice Type: Patient Choice Letter Notice Delivered To: Patient Relationship to Patient: Employee Relations Advisor Name: Delivery Method: HAND - Hand Delivered Colette Days: Prior Verbal Notification: Recipient Understood Notice: Yes Recipient Signature: Yes Med Rec Note Co-signed by Attending: Coverage Notice Comment: ANY NURSING FACILITY Last DP export: 03/22/19 11:26 am Patient Name: MAKENZIE DESAI Page 21711 at 1722 All edits/amendments must be made on the electronic document DICTATION DATE: 03/22/191720 TRACTOR OPERATOR LASER LEVELING: OSMEL 03/22/191720 RPT#: [id number] DC DATE: STATUS: ADM IN [facility] [address] [place] [address] END OF REPORT
--- NOTE | 2019-03-22 19:24 | NUR ---
RECEIVED UP IN BED WITH EYES CLOSED ANAD TV ON. ALERT AND ORITED X4. BEDFST AT THIS TIME. NO IV. O2@3 L PER N/C IN PLACE. F/C INTACT WITH CLEAR YELLOW URINE DRAINING TO BEDSIDE DRAINAGE BAG. LOWER EXTREMITIES DISCOLORED AND SCALEY. DENIES ANY NEEDS AT THIS TIME.
[2019-03-22 20:00] VITALS: BP 129/72
[2019-03-23] VITALS: BP 117/77
[2019-03-23 04:29] VITALS: BP 106/61
[2019-03-23 06:53] LABS: BASOPHILS 0.2 % (0-2); EOSINOPHILS 4.3 % (0-7); HEMATOCRIT 38.3 % (42.0-54.0); HEMOGLOBIN 11.5 g/dL (13.5-17.5); IMMATURE GRANULOCYTES 0.5 % (0-5); LYMPHOCYTES 15.6 % (15-50); MCH 25.1 pg (26.0-34.0); MCV 83.4 fL (80.0-100.0); MEAN PLATELET VOLUME 9.9 fL (7.4-10.4); MONOCYTES 13.7 % (2-11); NEUTROPHILS 65.7 % (40-80); PLATELET COUNT 462 10x3/uL (130-400); RBC 4.59 10x6/uL (4.20-6.10); RDW 17.8 % (11.5-14.5); WBC 9.2 10x3/uL (4.8-10.8)
[2019-03-23 07:12] LABS: ALBUMIN 1.3 g/dL (3.4-5.0); ALKALINE PHOSPHATASE 308 U/L (46-116); ALT (SGPT) 52 U/L (10-68); BILIRUBIN - TOTAL 0.34 mg/dL (0.2-1.3); CALC OSMOLALITY 285 mosm/kg (275-300); CALCIUM 8.2 mg/dL (8.5-10.1); CARBON DIOXIDE 37.9 mmol/L (21.0-32.0); CHLORIDE - SERUM 101 mmol/L (98-107); CREATININE - SERUM 0.9 mg/dL (0.6-1.3); GLUCOSE 113 mg/dL (74-106); MAGNESIUM - SERUM 2.1 mg/dL (1.8-2.4); POTASSIUM - SERUM 3.9 mmol/L (3.5-5.1); PROTEIN - SERUM 6.7 g/dL (6.4-8.2); SODIUM 140 mmol/L (136-145); UREA NITROGEN 30 mg/dL (7-18); eGFR NON AFRICAN AMERICAN 89 mL/min (90-120)
--- NOTE | 2019-03-23 07:15 | NUR ---
RECIEVE REPORT. SITTING UP IN BED WATCHING TV. ALERT AND ORIENTED X4. RODGERS DRAINING BY GRAVITY. DENIES ANY NEEDS AT THIS TIME. CONTINUE PLAN OF CARE AND SAFETY PRECAUTIONS.
[2019-03-23 10:33] VITALS: BP 111/56
[2019-03-23 15:12] VITALS: BP 115/66
--- NOTE | 2019-03-23 16:56 | MORECARE ---
CASE MANAGEMENT DISCHARGE SUMMARY PATIENT: MAKENZIE DESAI UNIT: [id number] ADM DATE: 03/19/19 AGE: 68 : [birth year] SEX: M ROOM/BED: D.2136 AUTHOR: СЕРГЕЙ,DOC PHYSICIAN: REFERRING PHYSICIAN: SOO EASTON MD DATE OF SERVICE: 03/23/19 Discharge Plan Patient Name: MAKENZIE DESAI Facility: [facility]:[place] : 07/23/1950 Planned Disposition: [facility] Facility Anticipated Discharge Date: 03/19/19 Discharge Date: Expected LOS: 1 Initial Reviewer: RAKESH Initial Review Date: 03/19/2019 Generated: 03/23/19 5:55 pm Comments DCP- Discharge Planning Updated by [id number]: Broderick Yo on 03/23/19 3:[address] Patient Name: MAKENZIE DESAI Encounter No: [id number] : 07-23-1950 Primary Insurance: MEDICARE A & B Anticipated DC Date: 03-19-2019 Planned Disposition: [facility] Facility External Planned Provider: [facility], MEDICARE REHAB BED DCP follow-up note: CM SPOKE TO PT IN ROOM, PT REPORTS FARAZ FROM [facility] MET WITH PT TODAY IN ROOM, PT IS HOPEFUL HE WILL BE ACCEPTED. CM CALLED AND SPOKE TO FARAZ OF [facility], , WHO REPORTS THEY ARE SCREENING FOR REHAB AN SNF CARE ADMISSION, ASKED FOR UPDATE TO BE FAXED 03-24-18. CM RECEIVED C ALL FROM [facility] WHO WILL SEE IF SHE CAN ASSIST WITH GETTING SOMEONE FROM THE [facility] INVOLVED TO ASSIST WITH PT'S SITUATION. PT NOTIFIED. CM WAITING ADMISSION DETERMINATION FROM [facility] AND WILL CONTINUE TO SEEK PRISON PLACEMENT AT ANY PRISON IN THE STATE. NIKKI Naik DCP- Discharge Planning Updated by [id number]: Broderick Yo on 03/22/19 4:[address] Patient Name: MAKENZIE DESAI Encounter No: [id number] : 07-23-1950 Primary Insurance: MEDICARE A & B Anticipated DC Date: 03-19-2019 Planned Disposition: [facility] Facility External Planned Provider: [facility] ANY ACCEPTING FACILITY DCP follow-up note: CM RECEIVED TWO CALLS FROM PATIENT WHO STATES THAT HE HAS TALKED TO THE OMBUDSMAN AND SHE GAVE HIM A LIST OF NURSING HOMES TO GO TO. PT INFORMED CM THAT HE WAS TOLD TREASURE [facility], [facility], [facility] AND SEVERAL OTHERS THAT HE DOES NOT KNOW AND DID NOT WRITE THEM DOWN. PT STATES HE WANTS TO GO A PRISON TODAY IF POSSIBLE. CM FAXED UPDATE TO [facility], . CM CALLED AND SPOKE TO ELOISA, , PT IS ON DO NOT TAKE LIST FROM [facility]. CM FAXED REFERRAL TO [facility], AND TO [facility]ICE (CE[facility]IL[facility]), , CALLED AND SPOKE TO CECILIA OF BOTH HOMES AT [phone], SHE WILL SCREEN FOR ADMISSION AND ATTEMPT TO FIND PLACEMENT FOR PATIENT. CM SPOKE TO ANNA OF NURSING CONSULTANTS, PT HAS BEEN DECLINED BY [facility], [facility]. [facility]AND ALL [facility] [place]), [place], [facility], [facility] AND [facility]. CM ADVISED BY OVERLAY PLASTICIAN NURSE THAT PT HAS ELECTRIC WHEELCHAIR NOW IN HIS ROOM. CM WAITING ON RETURN CALL FROM CHELA OF [facility]; CM WAITING ADMISSION DETERMINATION FROM [facility], [facility], [facility] IN [place]. PT WILL NEED OXYGEN ARRANGEMENT IS HE IS NOT DISCHARGED TO NURSING FACILITY. Dramatic Critic: Broderick Yo Appended by Broderick Yo on 03/22/2019 17:14 ARTIFICIAL GLASS EYE MAKER: CM RECEIVED CALL FROM CECILIA LONGORIA OF [facility], PT HAS BEEN DECLINED BY [facility]. SHE HAS NO OTHER HOMES TO SEND REFERRALS TO IN HER GROUP. PT HAS BEEN DECLINED BY [facility] (AND ALL [facility] [place]), [facility], [facility], [facility] AND [facility], [facility]. CM ADVISED BY OVERLAY PLASTICIAN NURSE THAT PT HAS ELECTRIC WHEELCHAIR NOW IN HIS ROOM. CM WAITING ON RETURN CALL FROM CHELA OF [facility]; CM WAITING ADMISSION DETERMINATION FROM [facility]. PT WILL NEED OXYGEN ARRANGEMENT IS HE IS NOT DISCHARGED TO NURSING FACILITY. CM TO CONTINUE TO SEEK SNF CARE FOR PT. Dramatic Critic: Broderick Yo DCP- Discharge Planning Updated by [id number]: Broderick Yo on 03/19/19 4:[address] Patient Name: MAKENZIE DESAI Admission Status: ER Accout number: [id number] Admission Date: 03-19-2019 : 07-23-1950 Admission Diagnosis: Attending: SOO EASTON Current LOS: 1 Anticipated DC Date: 03-19-2019 Planned Disposition: [facility] Facility Primary Insurance: MEDICARE A & B PLANNED [facility] Discharge Planning Comments: CM MET WITH PT IN ROOM TO DISCUSS DISCHARGE PLANNING AND NEEDS. PT REPORTS BEING HOMELESS. PT STATES [facility], PT STATES THEY WERE JUST "BB GUNS" AND HE GAVE THEM TO THE POLICE TO HOLD BECAUSE THE LITTLE "BLACK AIDES" AT [place] WERE THROWING A FIT ABOUT THEM. PT DOES NOT DENY HAVING KNIVES IN HIS BAG THAT THE POLICE ALSO HAVE NOW AND THAT HIS EX WILL GARAGEMAN FOR HIM. PT STATES HE HAS A MEDICAL MARIJUANA CARD AND HE STILL HAS ALL OF HIS MARIJUANA, THE POLICE CANNOT TAKE WHAT HE HAS LEGALLY. PT HAS NO MEDICAL EQUIPMENT WITH HIM AND STATES HE WILL HAVE HIS ELECTRIC WHEELCHAIR BROUGHT TO HIM WHEN HE GETS INTO A PLACE. [place] BEFORE MOVING IN WITH A ROOMMATE IN [place] AND THAT ROOMMATE STOLE PT'S BELONGINGS AND LEFT. CM DISCUSSED THAT PT IS NOT APPROPRIATE FOR HOSPTIAL ADMISSION AND THAT PT NEEDS A PLACE TO LIVE, THE HOSPITAL IS NOT A PLACE TO LIVE. CM ATTEMPTED TO ASSIST PT IN EXPLORING PERSONAL RESOURCES, PT STATES THAT HIS EX LILIAM AND DAUGHTER TRELL ARE NOT ABLE TO HELP AND THEY DON'T KNOW ANYONE WHO CAN. 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 PT WANTS CM TO GET HIM INTO A PRISON. CM EXPLAINED THAT PT CANNOT GET INTO [facility], [facility], [facility], [facility] OR [place]. PT BEGAN TO ARGUE ABOUT WHY THEY WILL NOT ACCEPT HIM. CM EXPLAINED AT THIS TIME, DISCUSSING WHY THEY ARE NOT ACCEPTING IS NOT PRODUCTIVE. CM ASKED PT IF HE WILL SIGN A STATEWIDE CONSENT FOR ANY PRISON. PT SIGNED CONSENT STATING HE HAS NO CHOICE. PT STATES HE CANNOT STAY IN A HOMELESS LONG TERM BECAUSE OF HIS "MEDICAL NEEDS" AND BEING CONFINED TO ELECTRIC WHEELCHAIR. [facility]. CM CALLED [place] EXPEDITOR, , ASKED FOR REHAB OR H[place]ELESS PLACEMENT IN [facility]. CM CALLED JORGE LUIS TORIBIO, [place] ELECTRIC CAR OPERATOR, , EXT [phone], LEFT DETAILED MESSAGE ASKING FOR ASSITANCE WITH PLACEMENT. CM CALLED CHELA BLACKWELL, [place] HOMELESS DOMICILLARY COORDINATOR, , LEFT DETAILED MESSAGE. CM RECEIVED RETURN CALL FROM DANIEL MO , m OF [place] [facility] WHO REPORTS PT IS NOT APPROPRIATE FOR REHAB SERVICES AND ACCORDING TO THERAPY NOTES FROM HOSPITAL REVIEWED BY CM, PT IS AT "BASELINE LEVEL OF FUNCTIONING." CM RECEIVED CALL FROM DR. SANTIZO, , OF [place] [facility], SHE HAS RECEIVED CALL FROM PT ASKING FOR MEDICAL TRANSFER TO [place]. CM PROVIDED. CM REVIEWED SITUATION, DR. SANTIZO AGREES THAT PT IS NOT APPRORIATE FOR MEDICAL TRANSFER TO [place] AND WILL SEND MESSAGE TO HOMELESS "DOM" FOR POSSIBLE ASSISTANCE. CM CALLED AND SPOKE TO SHOBHA OF [facility], , ASKED FOR ASSISTANCE WITH PLACEMENT, PROVIDED DETAILED INFORMATION TO PROBLEMS AT [facility] FOR PLACEMENT IN REHAB AND MEASUREMENT PSYCHOLOGIST CARE. SHOBHA WILL SCREEN FOR ADMISSION; CM FAXED REFERRAL TO [facility] AT [phone]. CM WAITING ON RETURN CALL FROM CHELA OF [place] HOMELESS DOMICILLARY; CM WAITING ADMISSION DETERMINATION FROM [facility] FOR REHAB TO SNF CARE. PATIENT WAS TESTED FOR OXGYEN ON 03-19-18, WAS 87% ON ROOM AIR AT REST, 96% ON 2LNC AT REST. PT WILL NEED OXYGEN ARRANGEMENT IS HE IS NOT DISCHARGED TO NURSING FACILITY. Dramatic Critic: Broderick Yo DCPIA - Discharge Planning Initial Assessment Updated by [id number]: Broderick Yo on 03/19/19 12:29 pm * Is the patient Alert and Oriented? Yes * How many steps to enter\\exit or inside your home? NONE * PCP DR. BARRERA * [facility] [place] * Preadmission Environment Home with Family * ADLs Independent * Equipment Cane Power Chair or Electric Scooter * Other Equipment [facility] * List name and contact numbers for known caregivers / representatives who currently or will assist patient after discharge: LILIAM DESAI, EX , TRELL DESAI, DTR, * Verbal permission to speak to the caregivers and representatives has been obtained from the patient. No * Community resources currently utilized None * Please name any agencies selected above. NONE * Additional services required to return to the preadmission environment? Yes * Can the patient safely return to the preadmission environment? No * Has this patient been hospitalized within the prior 30 days at any hospital? Yes Coverage Notice Reviewer: [id number] Christian Yo Notice Issued Date-Time: 03/19/2019 11:45 Notice Type: Patient Choice Letter Notice Delivered To: Patient Relationship to Patient: Rn Embedded Name: Delivery Method: HAND - Hand Delivered Colette Days: Prior Verbal Notification: Recipient Understood Notice: Yes Recipient Signature: Yes Med Rec Note Co-signed by Attending: Coverage Notice Comment: ANY NURSING FACILITY Last DP export: 03/22/19 4:21 pm Patient Name: MAKENZIE DESAI Page [id number] at 1656 All edits/amendments must be made on the electronic document DICTATION DATE: 03/23/191654 PRINCIPAL JAVA DEVELOPER: OSMEL 03/23/191654 RPT#: [id number] DC DATE: STATUS: ADM IN [facility] [address] [place] [address] END OF REPORT
--- NOTE | 2019-03-23 17:30 | NUR ---
ALERT AND ORIENTED X4. SITTING UP IN PERSONAL WHEELCHAIR EATING. DENIES ANY NEEDS. RODGERS DRAINING BY GRAVITY. CONTINUE PLAN OF CARE AND SAFETY PRECAUTIONS.
--- NOTE | 2019-03-23 19:45 | NUR ---
PT SITTING UP IN BED A/O X4. VSS. PT DENIES ANY FURTHER NEEDS AT THIS TIME. BED LOW CALL LIGHT WITHIN REACH. WILL CONTINUE TO MONITOR.
[2019-03-23 20:00] VITALS: BP 126/64
[2019-03-24 00:20] VITALS: BP 110/77
--- NOTE | 2019-03-24 02:39 | NUR ---
I have reviewed this patient and I concur with the Shift Assessment completed by the Licensed Practical Nurse today this shift.
[2019-03-24 04:00] VITALS: BP 109/73
--- NOTE | 2019-03-24 06:07 | NUR ---
RT CALLED PT REQUESTING UPDRAFT AT THIS TIME.
[2019-03-24 06:51] LABS: BASOPHILS 0.3 % (0-2); HEMATOCRIT 37.7 % (42.0-54.0); HEMOGLOBIN 11.2 g/dL (13.5-17.5); IMMATURE GRANULOCYTES 0.6 % (0-5); LYMPHOCYTES 14.2 % (15-50); MCH 24.8 pg (26.0-34.0); MCHC 29.7 g/dL (31.0-37.0); MCV 83.6 fL (80.0-100.0); MEAN PLATELET VOLUME 9.9 fL (7.4-10.4); MONOCYTES 14.1 % (2-11); NEUTROPHILS 64.8 % (40-80); PLATELET COUNT 447 10x3/uL (130-400); RBC 4.51 10x6/uL (4.20-6.10); RDW 17.8 % (11.5-14.5); WBC 8.9 10x3/uL (4.8-10.8)
[2019-03-24 07:10] LABS: ALBUMIN 1.3 g/dL (3.4-5.0); ALKALINE PHOSPHATASE 299 U/L (46-116); ALT (SGPT) 54 U/L (10-68); BILIRUBIN - TOTAL 0.37 mg/dL (0.2-1.3); CALC OSMOLALITY 284 mosm/kg (275-300); CALCIUM 7.9 mg/dL (8.5-10.1); CARBON DIOXIDE 37.3 mmol/L (21.0-32.0); CHLORIDE - SERUM 100 mmol/L (98-107); CREATININE - SERUM 0.7 mg/dL (0.6-1.3); GLUCOSE 93 mg/dL (74-106); PROTEIN - SERUM 5.8 g/dL (6.4-8.2); SODIUM 140 mmol/L (136-145); UREA NITROGEN 30 mg/dL (7-18); eGFR NON AFRICAN AMERICAN > 90 mL/min (90-120)
[2019-03-24 07:11] LABS: POTASSIUM - SERUM 4.7 mmol/L (3.5-5.1)
[2019-03-24 09:09] VITALS: BP 97/57
--- NOTE | 2019-03-24 10:00 | NUR ---
AM MEDS GIVEN AND EUCERIN CREAM APPLIED BILATERALLY TO PT'S LEGS. PT STATES HE AHS NO FURTHER NEEDS AT THIS TIME. BED LOW. CL IN REACH.
[2019-03-24 13:48] VITALS: BP 108/59
--- NOTE | 2019-03-24 14:30 | NUR ---
PT RECEIVED BED BATH BY ORDER ENTRY CLERK AND COMPLETE LINEN CHANGE DONE.
--- NOTE | 2019-03-24 16:54 | MORECARE ---
CASE MANAGEMENT DISCHARGE SUMMARY PATIENT: MAKENZIE DESAI UNIT: [id number] ADM DATE: 03/19/19 AGE: 68 : [birth year] SEX: M ROOM/BED: D.2136 AUTHOR: СЕРГЕЙ,DOC PHYSICIAN: REFERRING PHYSICIAN: SOO EASTON MD DATE OF SERVICE: 03/24/19 Discharge Plan Patient Name: MAKENZIE DESAI Facility: [facility]:[place] : 07/23/1950 Planned Disposition: Senior Care Facility Anticipated Discharge Date: 03/25/19 Discharge Date: Expected LOS: 6 Initial Reviewer: [id number] Initial Review Date: 03/19/2019 Generated: 03/24/19 5:54 pm DCP- Discharge Planning Updated by [id number]: Broderick Yo on 03/23/19 3:[address] Patient Name: MAKENZIE DESAI Encounter No: [id number] : 07-23-1950 Primary Insurance: MEDICARE A & B Anticipated DC Date: 03-19-2019 Planned Disposition: Senior Care Facility External Planned Provider: [facility], MEDICARE REHAB BED DCP follow-up note: CM SPOKE TO PT IN ROOM, PT REPORTS FARAZ FROM [facility] MET WITH PT TODAY IN ROOM, PT IS HOPEFUL HE WILL BE ACCEPTED. CM CALLED AND SPOKE TO FARAZ OF [facility], , WHO REPORTS THEY ARE SCREENING FOR REHAB AN [facility] ADMISSION, ASKED FOR UPDATE TO BE FAXED 03-24-18. CM RECEIVED C ALL FROM [facility] WHO WILL SEE IF SHE CAN ASSIST WITH GETTING SOMEONE FROM THE [facility] INVOLVED TO ASSIST WITH PT'S SITUATION. PT NOTIFIED. CM WAITING ADMISSION DETERMINATION FROM [facility] AND WILL CONTINUE TO SEEK HALF-WAY PLACEMENT AT ANY HALF-WAY IN THE STATE. NIKKI Naik DCP- Discharge Planning Updated by [id number]: Broderick Yo on 03/22/19 4:[address] Patient Name: MAKENZIE DESAI Encounter No: [id number] : 07-23-1950 Primary Insurance: MEDICARE A & B Anticipated DC Date: 03-19-2019 Planned Disposition: Senior Care Facility External Planned Provider: [facility] ANY ACCEPTING FACILITY DCP follow-up note: CM RECEIVED TWO CALLS FROM PATIENT WHO STATES THAT HE HAS TALKED TO THE [facility]MAN AND SHE GAVE HIM A LIST OF NURSING HOMES TO GO TO. PT INFORMED CM THAT HE WAS TOLD TREASURE [facility], [facility], [facility] AND SEVERAL OTHERS THAT HE DOES NOT KNOW AND DID NOT WRITE THEM DOWN. PT STATES HE WANTS TO GO A HALF-WAY TODAY IF POSSIBLE. CM FAXED UPDATE TO [facility], . CM CALLED AND SPOKE TO ELOISA, , PT IS ON DO NOT TAKE LIST FROM [facility]. CM FAXED REFERRAL TO [facility], AND TO IVELISSE PRICE (CECILIA), , CALLED AND SPOKE TO CECILIA OF BOTH HOMES AT [phone], SHE WILL SCREEN FOR ADMISSION AND ATTEMPT TO FIND PLACEMENT FOR PATIENT. CM SPOKE TO ANNA OF NURSING CONSULTANTS, PT HAS BEEN DECLINED BY [facility] AND [facility] AND [facility]. PT HAS BEEN [facility] (AND ALL [facility] [place]), [facility], [facility], [facility] AND [facility] AND [facility] CM ADVISED BY SUBSURFACE AUGMENTEE OPERATOR NURSE THAT PT HAS ELECTRIC WHEELCHAIR NOW IN HIS ROOM. CM WAITING ON RETURN CALL FROM [facility]; CM WAITING ADMISSION DETERMINATION FROM [facility], [facility] AND [facility], [facility] [place]. PT WILL NEED OXYGEN ARRANGEMENT IS HE IS NOT DISCHARGED TO NURSING FACILITY. Vice President Of Finance: Broderick Yo Appended by Broderick Yo on 03/22/2019 17:14 ADMINISTRATIVE OFFICE SPECIALIST: CM RECEIVED CALL FROM CECILIA LONGORIA OF [facility], PT HAS BEEN DECLINED BY [facility]. SHE HAS NO OTHER HOMES TO SEND REFERRALS TO IN HER GROUP. PT HAS BEEN DECLINED BY [facility] (AND ALL [facility] [place]), [facility], [facility], [facility] AND [facility] AND [facility], [facility]. CM ADVISED BY SUBSURFACE AUGMENTEE OPERATOR NURSE THAT PT HAS ELECTRIC WHEELCHAIR NOW IN HIS ROOM. CM WAITING ON RETURN CALL FROM CHELA OF [facility]; CM WAITING ADMISSION DETERMINATION FROM [facility] AND [facility]. PT WILL NEED OXYGEN ARRANGEMENT IS HE IS NOT DISCHARGED TO NURSING FACILITY. CM TO CONTINUE TO SEEK CHEF TEACHER CARE FOR PT. Vice President Of Finance: Broderick Yo DCP- Discharge Planning Updated by [id number]: Broderick Yo on 03/19/19 4:[address] Patient Name: MAKENZIE DESAI Admission Status: ER Accout number: [id number] Admission Date: 03-19-2019 : 07-23-1950 Admission Diagnosis: Attending: SOO EASTON Current LOS: 1 Anticipated DC Date: 03-19-2019 Planned Disposition: Senior Care Facility Primary Insurance: MEDICARE A & B PLANNED EXTERNAL PROVIDER[facility] Discharge Planning Comments: CM MET WITH PT IN ROOM TO DISCUSS DISCHARGE PLANNING AND NEEDS. PT REPORTS BEING HOMELESS. PT STATES HE [facility], PT STATES THEY WERE JUST "BB GUNS" AND HE GAVE THEM TO THE POLICE TO HOLD BECAUSE THE LITTLE "BLACK AIDES" AT [place] WERE THROWING A FIT ABOUT THEM. PT DOES NOT DENY HAVING KNIVES IN HIS BAG THAT THE POLICE ALSO HAVE NOW AND THAT HIS EX WILL PERSONAL COMPUTER NETWORK ENGINEER FOR HIM. PT STATES HE HAS A MEDICAL MARIJUANA CARD AND HE STILL HAS ALL OF HIS MARIJUANA, THE POLICE CANNOT TAKE WHAT HE HAS LEGALLY. PT HAS NO MEDICAL EQUIPMENT WITH HIM AND STATES HE WILL HAVE HIS ELECTRIC WHEELCHAIR BROUGHT TO HIM WHEN HE GETS INTO A PLACE. PT WAS RECENTLY IN THE [place] [facility] BEFORE MOVING IN WITH A ROOMMATE IN [place] AND THAT ROOMMATE STOLE PT'S BELONGINGS AND LEFT. CM DISCUSSED THAT PT IS NOT APPROPRIATE FOR HOSPTIAL ADMISSION AND THAT PT NEEDS A PLACE TO LIVE, THE HOSPITAL IS NOT A PLACE TO LIVE. CM ATTEMPTED TO ASSIST PT IN EXPLORING PERSONAL RESOURCES, PT STATES THAT HIS EX LILIAM AND DAUGHTER TRELL ARE NOT ABLE TO HELP AND THEY DON'T KNOW ANYONE WHO CAN. CM ASKED ABOUT GOING BACK TO [place] [facility], PT STATES HE WORKED THROUGH THE PROGRAM AND CANNOT GO BACK NOW. PT WANTS CM TO GET HIM INTO A HALF-WAY. CM EXPLAINED THAT PT CANNOT GET INTO [facility], [facility], [facility], [facility], [facility] OR [facility]. PT BEGAN TO ARGUE ABOUT WHY THEY WILL NOT ACCEPT HIM. CM EXPLAINED AT THIS TIME, DISCUSSING WHY THEY ARE NOT ACCEPTING IS NOT PRODUCTIVE. CM ASKED PT IF HE WILL SIGN A STATEWIDE CONSENT FOR ANY HALF-WAY. PT SIGNED CONSENT STATING HE HAS NO CHOICE. PT STATES HE CANNOT STAY IN A HOMELESS LONG TERM BECAUSE OF HIS "MEDICAL NEEDS" AND BEING CONFINED TO ELECTRIC WHEELCHAIR. [facility]. CM CALLED [place] [facility], , ASKED FOR REHAB OR HOMELESS PLACEMENT IN [facility]. CM CALLED JORGE LUIS TORBIIO, [place] SITE COORDINATOR, , EXT [phone], LEFT DETAILED MESSAGE ASKING FOR ASSITANCE WITH PLACEMENT. CM CALLED CHELA BLACKWELL, [place] HOMELESS DOMICILLARY COORDINATOR, , LEFT DETAILED MESSAGE. CM RECEIVED RETURN CALL FROM DANIEL MO , m OF [place] [facility] WHO REPORTS PT IS NOT APPROPRIATE FOR REHAB SERVICES AND ACCORDING TO THERAPY NOTES FROM HOSPITAL REVIEWED BY CM, PT IS AT "BASELINE LEVEL OF FUNCTIONING." CM RECEIVED CALL FROM DR. SANTIZO, , OF [place] [facility], SHE HAS RECEIVED CALL FROM PT ASKING FOR MEDICAL TRANSFER TO [place]. CM PROVIDED. CM REVIEWED SITUATION, DR. SANTIZO AGREES THAT PT IS NOT APPRORIATE FOR MEDICAL TRANSFER TO [place] AND WILL SEND MESSAGE TO HOMELESS "DOM" FOR POSSIBLE ASSISTANCE. CM CALLED AND SPOKE TO SHOBHA OF [facility], , ASKED FOR ASSISTANCE WITH PLACEMENT, PROVIDED DETAILED INFORMATION TO PROBLEMS AT [facility] FOR PLACEMENT IN REHAB AND [facility]. SHOBHA WILL SCREEN FOR ADMISSION; CM FAXED REFERRAL TO [facility] AT [phone]. CM WAITING ON RETURN CALL FROM CHELA OF [place] [facility]EL[facility] DOMICILL[facility]; CM WAITING ADMISSION DETERMINATION FROM [facility] FOR REHAB TO [facility]. PATIENT WAS TESTED FOR OXGYEN ON 03-19-18, WAS 87% ON ROOM AIR AT REST, 96% ON 2LNC AT REST. PT WILL NEED OXYGEN ARRANGEMENT IS HE IS NOT DISCHARGED TO NURSING FACILITY. Vice President Of Finance: Broderick Yo DCPIA - Discharge Planning Initial Assessment Updated by [id number]: Broderick Yo on 03/19/19 12:29 pm * Is the patient Alert and Oriented? Yes * How many steps to enter\\exit or inside your home? NONE * PCP DR. BARRERA * [place] * Preadmission Environment Home with Family * ADLs Independent * Equipment Cane Power Chair or Electric Scooter * Other Equipment [employer] * List name and contact numbers for known caregivers / representatives who currently or will assist patient after discharge: LILIAM DESAI, EX , TRELL DESAI, DTR, * Verbal permission to speak to the caregivers and representatives has been obtained from the patient. No * Community resources currently utilized None * Please name any agencies selected above. NONE * Additional services required to return to the preadmission environment? Yes * Can the patient safely return to the preadmission environment? No * Has this patient been hospitalized within the prior 30 days at any hospital? Yes Coverage Notice Reviewer: [id number] Christian Yo Notice Issued Date-Time: 03/19/2019 11:45 Notice Type: Patient Choice Letter Notice Delivered To: Patient Relationship to Patient: Scenery Builder Name: Delivery Method: HAND - Hand Delivered Colette Days: Prior Verbal Notification: Recipient Understood Notice: Yes Recipient Signature: Yes Med Rec Note Co-signed by Attending: Coverage Notice Comment: ANY NURSING FACILITY Reviewer: [id number] Yo Notice Issued Date-Time: 03/24/2019 18:10 Notice Type: IM Discharge Notice Notice Delivered To: Patient Relationship to Patient: Scenery Builder Name: Delivery Method: HAND - Hand Delivered Colette Days: Prior Verbal Notification: Recipient Understood Notice: Yes Recipient Signature: Yes Med Rec Note Co-signed by Attending: Coverage Notice Comment: Last DP export: 03/23/19 3:56 pm Patient Name: MAKENZIE DESAI Page [id number] at 1654 All edits/amendments must be made on the electronic document DICTATION DATE: 03/24/191653 COMMERCIAL LOAN ANALYST: OSMEL 03/24/191653 RPT#: [id number] DC DATE: STATUS: ADM IN [facility] [address] [place] [address] END OF REPORT
--- NOTE | 2019-03-24 17:05 | MORECARE ---
CASE MANAGEMENT DISCHARGE SUMMARY PATIENT: MAKENZIE DESAI UNIT: [id number] ADM DATE: 03/19/19 AGE: 68 : [birth year] SEX: M ROOM/BED: D.2136 AUTHOR: СЕРГЕЙ,DOC PHYSICIAN: REFERRING PHYSICIAN: SOO EASTON MD DATE OF SERVICE: 03/24/19 Discharge Plan Patient Name: MAKENZIE DESAI Facility: [facility]:[place] : 07/23/1950 Planned Disposition: Detention Facility Anticipated Discharge Date: 03/25/19 Discharge Date: Expected LOS: 6 Initial Reviewer: [id number] Initial Review Date: 03/19/2019 Generated: 03/24/19 6:04 pm Comments DCP- Discharge Planning Updated by [id number]: Broderick Yo on 03/24/19 4:[address] Patient Name: MAKENZIE DESAI Encounter No: [id number] : 07-23-1950 Primary Insurance: MEDICARE A & B Anticipated DC Date: 03-25-2019 Planned Disposition: Detention Facility External Planned Provider: [facility], MEDICARE REHAB BED DCP follow-up note: CM RECEIVED CALL FROM [facility], CORIN DECLINED PT. CM RECEIVED CALL FROM FARAZ OF [facility], THEY WILL ACCEPT PT TOMORROW, 03-25-19 AND WILL ARRANGE VAN HORSERADISH GRINDER. PT NOTIFIED AND IN AGREEMENT WITH DISCHARGE TO [facility]. IMPORTANT MESSAGE FROM MEDICARE PROVIDED AND EXPLAINED. FOR DISCHARGETO [facility] ON 03-25-19, FAX DISCHARGE INFORMATION TO [facility] AT [phone]; NURSE REPORT TO BE CALLED TO [facility] AT [phone]. [facility] TO ARRANGE VAN TRANSPORTATION. Broderick Yo, CASE MANAGEMENT DCP- Discharge Planning Updated by [id number]: Broderick Yo on 03/23/19 3:[address] Patient Name: MAKENZIE DESAI Encounter No: [id number] : 07-23-1950 Primary Insurance: MEDICARE A & B Anticipated DC Date: 03-19-2019 Planned Disposition: Detention Facility External Planned Provider: [facility], MEDICARE REHAB BED DCP follow-up note: CM SPOKE TO PT IN ROOM, PT REPORTS FARAZ FROM [facility] MET WITH PT TODAY IN ROOM, PT IS HOPEFUL HE WILL BE ACCEPTED. CM CALLED AND SPOKE TO FARAZ OF [facility], , WHO REPORTS THEY ARE SCREENING FOR REHAB AN DETENTION CARE ADMISSION, ASKED FOR UPDATE TO BE FAXED 03-24-18. CM RECEIVED C ALL FROM [facility] WHO WILL SEE IF SHE CAN ASSIST WITH GETTING SOMEONE FROM THE [facility] INVOLVED TO ASSIST WITH PT'S SITUATION. PT NOTIFIED. CM WAITING ADMISSION DETERMINATION FROM [facility] AND WILL CONTINUE TO SEEK [facility] PLACEMENT AT ANY [facility] IN THE STATE. Broderick Yo, CASE MANAGEMENT DCP- Discharge Planning Updated by [id number]: Broderick Yo on 03/22/19 4:[address] Patient Name: MAKENZIE DESAI Encounter No: [id number] : 07-23-1950 Primary Insurance: MEDICARE A & B Anticipated DC Date: 03-19-2019 Planned Disposition: Detention Facility External Planned Provider: [facility] ANY ACCEPTING FACILITY DCP follow-up note: CM RECEIVED TWO CALLS FROM PATIENT WHO STATES THAT HE HAS TALKED TO THE [facility] AND SHE GAVE HIM A LIST OF NURSING HOMES TO GO TO. PT INFORMED CM THAT HE WAS TOLD TREASURE [facility], [facility] AND SEVERAL OTHERS THAT HE DOES NOT KNOW AND DID NOT WRITE THEM DOWN. PT STATES HE WANTS TO GO A [facility] TODAY IF POSSIBLE. [facility], . CM CALLED AND SPOKE TO ELOISA, , PT IS ON DO NOT TAKE LIST FROM [facility]. CM FAXED REFERRAL TO [facility], AND TO IVELISSE PRICE (CE[facility]IL[facility]), , CALLED AND SPOKE TO CECILIA OF BOTH HOMES AT [phone], SHE WILL SCREEN FOR ADMISSION AND ATTEMPT TO FIND PLACEMENT FOR PATIENT. CM SPOKE TO ANNA OF NURSING CONSULTANTS, PT HAS BEEN DECLINED BY [facility] AND [facility]. PT HAS BEEN DECLINED BY [facility], [facility] (AND ALL [facility] IN [place]), [facility] CM ADVISED BY DRILL PRESS OPERATOR HELPER NURSE THAT PT HAS ELECTRIC WHEELCHAIR NOW IN HIS ROOM. CM WAITING ON RETURN CALL FROM [facility]; CM WAITING ADMISSION DETERMINATION FROM [facility], [facility] [place]. PT WILL NEED OXYGEN ARRANGEMENT IS HE IS NOT DISCHARGED TO NURSING FACILITY. Property Worker: Broderick Yo Appended by Broderick Yo on 03/22/2019 17:14 VP PLATFORMS: CM RECEIVED CALL FROM CECILIA LONGORIA OF [facility], PT HAS BEEN DECLINED BY [facility]. SHE HAS NO OTHER HOMES TO SEND REFERRALS TO IN HER GROUP. PT HAS BEEN DECLINED BY [facility] (AND ALL [facility] IN [place]), [facility], [facility] AND [facility], [facility]. CM ADVISED BY DRILL PRESS OPERATOR HELPER NURSE THAT PT HAS ELECTRIC WHEELCHAIR NOW IN HIS ROOM. CM WAITING ON RETURN CALL FROM [facility]; CM WAITING ADMISSION DETERMINATION FROM [facility] AND [facility]. PT WILL NEED OXYGEN ARRANGEMENT IS HE IS NOT DISCHARGED TO NURSING FACILITY. CM TO CONTINUE TO SEEK DIRECTOR OF ACADEMIC SUPPORT CARE FOR PT. Property Worker: Broderick Yo DCP- Discharge Planning Updated by [id number]: Broderick Yo on 03/19/19 4:[address] Patient Name: MAKENZIE DESAI Admission Status: ER Accout number: [id number] Admission Date: 03-19-2019 : 07-23-1950 Admission Diagnosis: Attending: SOO EASTON Current LOS: 1 Anticipated DC Date: 03-19-2019 Planned Disposition: Detention Facility Primary Insurance: MEDICARE A & B PLANNED [facility]NAL PROVIDER[facility] Discharge Planning Comments: CM MET WITH PT IN ROOM TO DISCUSS DISCHARGE PLANNING AND NEEDS. PT REPORTS BEING HOMELESS. PT STATES HE DID NOT HAVE TWO GUNS AT [facility], PT STATES THEY WERE JUST "BB GUNS" AND HE GAVE THEM TO THE POLICE TO HOLD BECAUSE THE LITTLE "BLACK AIDES" AT [place] WERE THROWING A FIT ABOUT THEM. PT DOES NOT DENY HAVING KNIVES IN HIS BAG THAT THE POLICE ALSO HAVE NOW AND THAT HIS EX WILL HORSERADISH GRINDER FOR HIM. PT STATES HE HAS A MEDICAL MARIJUANA CARD AND HE STILL HAS ALL OF HIS MARIJUANA, THE POLICE CANNOT TAKE WHAT HE HAS LEGALLY. PT HAS NO MEDICAL EQUIPMENT WITH HIM AND STATES HE WILL HAVE HIS ELECTRIC WHEELCHAIR BROUGHT TO HIM WHEN HE GETS INTO A PLACE. PT WAS RECENTLY IN THE [place] [facility] BEFORE MOVING IN WITH A ROOMMATE IN [place] AND THAT ROOMMATE STOLE PT'S BELONGINGS AND LEFT. CM DISCUSSED THAT PT IS NOT APPROPRIATE FOR HOSPTIAL ADMISSION AND THAT PT NEEDS A PLACE TO LIVE, THE HOSPITAL IS NOT A PLACE TO LIVE. CM ATTEMPTED TO ASSIST PT IN EXPLORING PERSONAL RESOURCES, PT STATES THAT HIS EX LILIAM AND DAUGHTER TRELL ARE NOT ABLE TO HELP AND THEY DON'T KNOW ANYONE WHO CAN. CM ASKED ABOUT GOING BACK TO [place] [facility], PT STATES HE WORKED THROUGH THE PROGRAM AND CANNOT GO BACK NOW. PT WANTS CM TO GET HIM INTO A [facility]. CM EXPLAINED THAT PT CANNOT GET INTO [facility], [facility], [facility], [facility] OR [facility]. PT BEGAN TO ARGUE ABOUT WHY THEY WILL NOT ACCEPT HIM. CM EXPLAINED AT THIS TIME, DISCUSSING WHY THEY ARE NOT ACCEPTING IS NOT PRODUCTIVE. CM ASKED PT IF HE WILL SIGN A STATEWIDE CONSENT FOR ANY [facility]. PT SIGNED CONSENT STATING HE HAS NO CHOICE. PT STATES HE CANNOT STAY IN A HOMELESS INTERMEDIATE BECAUSE OF HIS "MEDICAL NEEDS" AND BEING CONFINED TO ELECTRIC WHEELCHAIR. PT WILL CONSENT TO TRANSFER TO THE [facility] IF THEY WILL ACCEPT HIM. CM CALLED [facility] EXPEDITOR, , ASKED FOR REHAB OR HOMELESS PLACEMENT IN [facility] PROGRAM. CM CALLED JORGE LUIS TORIBIO, [place], , EXT [phone], LEFT DETAILED MESSAGE ASKING FOR ASSITANCE WITH PLACEMENT. CM CALLED CHELA BLACKWELL, [place] HOMELESS DOMICILLARY COORDINATOR, , LEFT DETAILED MESSAGE. DEXTER RECEIVED RETURN CALL FROM DANIEL MO , m OF [facility] WHO REPORTS PT IS NOT APPROPRIATE FOR REHAB SERVICES AND ACCORDING TO THERAPY NOTES FROM HOSPITAL REVIEWED BY CM, PT IS AT "BASELINE LEVEL OF FUNCTIONING." DEXTER RECEIVED CALL FROM DR. SANTIZO, , OF [place] [facility], SHE HAS RECEIVED CALL FROM PT ASKING FOR MEDICAL TRANSFER TO [facility]. CM PROVIDED. CM REVIEWED SITUATION, DR. SANTIZO AGREES THAT PT IS NOT APPRORIATE FOR MEDICAL TRANSFER TO [facility] AND WILL SEND MESSAGE TO [facility] "DOM" FOR POSSIBLE ASSISTANCE. CM CALLED AND SPOKE TO SHOBHA OF [facility], , ASKED FOR ASSISTANCE WITH PLACEMENT, PROVIDED DETAILED INFORMATION TO PROBLEMS AT [facility] FOR PLACEMENT IN REHAB AND DETENTION CARE. SHOBHA WILL SCREEN FOR ADMISSION; CM FAXED REFERRAL TO [facility] AT [phone]. CM WAITING ON RETURN CALL FROM [facility]; CM WAITING ADMISSION DETERMINATION FROM [facility] AND [facility]HAB FOR REHAB TO DIRECTOR OF ACADEMIC SUPPORT CARE. PATIENT WAS TESTED FOR OXGYEN ON 03-19-18, WAS 87% ON ROOM AIR AT REST, 96% ON 2LNC AT REST. PT WILL NEED OXYGEN ARRANGEMENT IS HE IS NOT DISCHARGED TO NURSING FACILITY. Property Worker: Broderick Yo DCPIA - Discharge Planning Initial Assessment Updated by [id number]: Broderick Yo on 03/19/19 12:29 pm * Is the patient Alert and Oriented? Yes * How many steps to enter\\exit or inside your home? NONE * PCP DR. BARRERA * [facility] [place] * Preadmission Environment Home with Family * ADLs Independent * Equipment Cane Power Chair or Electric Scooter * Other Equipment [facility]MINIST[facility] * List name and contact numbers for known caregivers / representatives who currently or will assist patient after discharge: LILIAM DESAI, EX , TRELL DESAI, DTR, * Verbal permission to speak to the caregivers and representatives has been obtained from the patient. No * Community resources currently utilized None * Please name any agencies selected above. NONE * Additional services required to return to the preadmission environment? Yes * Can the patient safely return to the preadmission environment? No * Has this patient been hospitalized within the prior 30 days at any hospital? Yes Coverage Notice Reviewer: [id number] - Broderick Yo Notice Issued Date-Time: 03/19/2019 11:45 Notice Type: Patient Choice Letter Notice Delivered To: Patient Relationship to Patient: Electrotype Molder Name: Delivery Method: HAND - Hand Delivered Colette Days: Prior Verbal Notification: Recipient Understood Notice: Yes Recipient Signature: Yes Med Rec Note Co-signed by Attending: Coverage Notice Comment: ANY NURSING FACILITY Reviewer: [id number] Christian Yo Notice Issued Date-Time: 03/24/2019 18:10 Notice Type: IM Discharge Notice Notice Delivered To: Patient Relationship to Patient: Electrotype Molder Name: Delivery Method: HAND - Hand Delivered Colette Days: Prior Verbal Notification: Recipient Understood Notice: Yes Recipient Signature: Yes Med Rec Note Co-signed by Attending: Coverage Notice Comment: Last DP export: 03/24/19 3:54 pm Patient Name: MAKENZIE DESAI Page [id number] at 1705 All edits/amendments must be made on the electronic document DICTATION DATE: 03/24/191703 MOLYBDENUM STEAMER OPERATOR: OSMEL 03/24/191703 RPT#: [id number] DC DATE: STATUS: ADM IN [facility] [address] [place] [address] END OF REPORT
[2019-03-24 17:12] VITALS: BP 130/56
--- NOTE | 2019-03-24 18:10 | NUR ---
I have reviewed this patient and I concur with the Shift Assessment completed by the Licensed Practical Nurse today this shift.
--- NOTE | 2019-03-24 18:43 | NUR ---
PT REQUESTING BREATHING TREATMENT. CALLED [facility] AND THEY STATED THEY WOULD COME DO IT.
[2019-03-24 20:56] VITALS: BP 116/70
[2019-03-25 00:30] VITALS: BP 121/72
[2019-03-25 04:30] VITALS: BP 114/68
--- NOTE | 2019-03-25 06:22 | NUR ---
I have reviewed this patient and I concur with the Shift Assessment completed by the Licensed Practical Nurse today this shift.
--- NOTE | 2019-03-25 07:56 | NUR ---
PATIENT IS RESTING QUIETLY IN HIS ROOM RECIEVING A BREATHING TREATMENT. HE IS BEING DISCHARGED TODAY. [facility] RODGERS WITLL BE LEFT IN PLACE, BECAUSE IT IS FOR URINARY RETENTION. WILL CONTINUE PLAN OF CARE ORDERED.
--- NOTE | 2019-03-25 07:57 | NUR ---
NO FLU SHOT UPON ADMIT STATUS. REFUSED ONE AT THIS DISCHARGE.
--- NOTE | 2019-03-25 10:15 | MORECARE ---
CASE MANAGEMENT DISCHARGE SUMMARY PATIENT: MAKENZIE DESAI UNIT: [id number] ADM DATE: 03/19/19 AGE: 68 : [birth year] SEX: M ROOM/BED: D.7896 AUTHOR: СЕРГЕЙ,DOC PHYSICIAN: REFERRING PHYSICIAN: SOO EASTON MD DATE OF SERVICE: 03/25/19 Discharge Plan Patient Name: MAKENZIE DESAI Facility: [facility]:[place] : 07/23/1950 Planned Disposition: Shelter Facility Anticipated Discharge Date: 03/25/19 Discharge Date: Expected LOS: 6 Initial Reviewer: [id number] Initial Review Date: 03/19/2019 Generated: 03/25/19 11:14 am Comments DCP- Discharge Planning Updated by [id number]: Broderick Yo on 03/25/19 9:[address] Patient Name: MAKENZIE DESAI Encounter No: [id number] : 07-23-1950 Primary Insurance: MEDICARE A & B Anticipated DC Date: 03-25-2019 Planned Disposition: Shelter Facility External Planned Provider: [facility], MEDICARE REHAB BED DCP follow-up note: CM RECEIVED DISCHARGE ORDER, FAXED DISCHARGE INFORMATION TO [facility] AT [phone]; NURSE REPORT TO BE CALLED TO [facility] AT [phone]. [facility] TO ARRANGE VAN TRANSPORTATION. Broderick Yo CASE MANAGEMENT DCP- Discharge Planning Updated by [id number]: Broderick Yo on 03/24/19 4:[address] Patient Name: MAKENZIE DESAI Encounter No: [id number] : 07-23-1950 Primary Insurance: MEDICARE A & B Anticipated DC Date: 03-25-2019 Planned Disposition: Shelter Facility External Planned Provider: [facility], MEDICARE REHAB BED DCP follow-up note: CM RECEIVED CALL FROM [facility], CORIN CABALLERO PT. CM RECEIVED CALL FROM FARAZ OF [facility], THEY WILL ACCEPT PT TOMORROW, 03-25-19 AND WILL ARRANGE VAN SUPERVISING FLOORPERSON. PT NOTIFIED AND IN AGREEMENT WITH DISCHARGE TO [facility]. IMPORTANT MESSAGE FROM MEDICARE PROVIDED AND EXPLAINED. FOR DISCHARGETO [facility] ON 03-25-19, FAX DISCHARGE INFORMATION TO [facility] AT [phone]; NURSE REPORT TO BE CALLED TO [facility] AT [phone]. [facility] TO ARRANGE VAN TRANSPORTATION. NIKKI Naik MANAGEMENT DCP- Discharge Planning Updated by [id number]: Broderick Yo on 03/23/19 3:[address] Patient Name: MAKENZIE DESAI Encounter No: [id number] : 07-23-1950 Primary Insurance: MEDICARE A & B Anticipated DC Date: 03-19-2019 Planned Disposition: Shelter Facility External Planned Provider: [facility], MEDICARE REHAB BED DCP follow-up note: CM SPOKE TO PT IN ROOM, PT REPORTS FARAZ FROM [facility] MET WITH PT TODAY IN ROOM, PT IS HOPEFUL HE WILL BE ACCEPTED. CM CALLED AND SPOKE TO FARAZ OF [facility], , WHO REPORTS THEY ARE SCREENING FOR REHAB AN [facility] ADMISSION, ASKED FOR UPDATE TO BE FAXED 03-24-18. CM RECEIVED C ALL FROM [facility] WHO WILL SEE IF SHE CAN ASSIST WITH GETTING SOMEONE FROM THE [facility] INVOLVED TO ASSIST WITH PT'S SITUATION. PT NOTIFIED. CM WAITING ADMISSION DETERMINATION FROM [facility] AND WILL CONTINUE TO SEEK [facility] PLACEMENT AT ANY [facility] IN THE [facility]. NIKKI Naik DCP- Discharge Planning Updated by [id number]: Broderick Yo on 03/22/19 4:[address] Patient Name: MAKENZIE DESAI Encounter No: [id number] : 07-23-1950 Primary Insurance: MEDICARE A & B Anticipated DC Date: 03-19-2019 Planned Disposition: Shelter Facility External Planned Provider: [facility] ANY ACCEPTING FACILITY DCP follow-up note: CM RECEIVED TWO CALLS FROM PATIENT WHO STATES THAT HE HAS TALKED TO THE BUDSMAN AND SHE GAVE HIM A LIST OF NURSING HOMES TO GO TO. PT INFORMED CM THAT HE WAS TOLD [facility], [facility], [facility] AND SEVERAL OTHERS THAT HE DOES NOT KNOW AND DID NOT WRITE THEM DOWN. PT STATES HE WANTS TO GO A [facility] TODAY IF POSSIBLE. CM FAXED UPDATE TO [facility], . CM CALLED AND SPOKE TO ELOISA [phone], PT IS ON DO NOT TAKE LIST FROM [facility]. CM FAXED REFERRAL TO [facility], AND TO [facility] MICHEAL PRICE (CECILIA), , CALLED AND SPOKE TO CECILIA OF BOTH [facility] AT [phone], SHE WILL SCREEN FOR ADMISSION AND ATTEMPT TO FIND PLACEMENT FOR PATIENT. CM SPOKE TO ANNA OF NURSING CONSULTANTS, PT HAS BEEN DECLINED BY [facility] AND [facility] AND [facility] PT HAS BEEN DECLINED BY [facility] (AND ALL [facility] IN [place]), [facility], [facility], [facility] AND [facility] AND [facility]. CM ADVISED BY LOGGING WORKER NURSE THAT PT HAS ELECTRIC WHEELCHAIR NOW IN HIS ROOM. CM WAITING ON RETURN CALL FROM [facility]; CM WAITING ADMISSION DETERMINATION FROM [facility], [facility], [facility] [place]. PT WILL NEED OXYGEN ARRANGEMENT IS HE IS NOT DISCHARGED TO NURSING FACILITY. Chinchilla Farmer: Broderick Yo Appended by Broderick Yo on 03/22/2019 17:14 WEBSPHERE PORTAL DEVELOPER: CM RECEIVED CALL FROM CECILIA LONGORIA OF [facility], PT HAS BEEN DECLINED BY [facility] AND [facility]AL PRICE. SHE HAS NO OTHER HOMES TO SEND REFERRALS TO IN HER GROUP. PT HAS BEEN DECLINED BY [facility] (AND ALL [facility] [place]), [facility], [facility], [facility] AND [facility], [facility]. CM ADVISED BY LOGGING WORKER NURSE THAT PT HAS ELECTRIC WHEELCHAIR NOW IN HIS ROOM. CM WAITING ON RETURN CALL FROM [facility]; CM WAITING ADMISSION DETERMINATION FROM [facility] AND [facility]. PT WILL NEED OXYGEN ARRANGEMENT IS HE IS NOT DISCHARGED TO NURSING FACILITY. CM TO CONTINUE TO SEEK ASSISTED CARE FOR PT. Chinchilla Farmer: Broderick Yo DCP- Discharge Planning Updated by [id number]: Broderick Yo on 03/19/19 4:[address] Patient Name: MAKENZIE DESAI Admission Status: ER Accout number: [id number] Admission Date: 03-19-2019 : 07-23-1950 Admission Diagnosis: Attending: SOO EASTON Current LOS: 1 Anticipated DC Date: 03-19-2019 Planned Disposition: Shelter Facility Primary Insurance: MEDICARE A & B PLANNED EXTERNAL PROVIDER: [facility] OR [facility] [place] Discharge Planning Comments: CM MET WITH PT IN ROOM TO DISCUSS DISCHARGE PLANNING AND NEEDS. PT REPORTS BEING HOMELESS. PT STATES HE DID NOT HAVE TWO GUNS AT [facility], PT STATES THEY WERE JUST "BB GUNS" AND HE GAVE THEM TO THE POLICE TO HOLD BECAUSE THE LITTLE "BLACK AIDES" AT [place] WERE THROWING A FIT ABOUT THEM. PT DOES NOT DENY HAVING KNIVES IN HIS BAG THAT THE POLICE ALSO HAVE NOW AND THAT HIS EX WILL SUPERVISING FLOORPERSON FOR HIM. PT STATES HE HAS A MEDICAL MARIJUANA CARD AND HE STILL HAS ALL OF HIS MARIJUANA, THE POLICE CANNOT TAKE WHAT HE HAS LEGALLY. PT HAS NO MEDICAL EQUIPMENT WITH HIM AND STATES HE WILL HAVE HIS ELECTRIC WHEELCHAIR BROUGHT TO HIM WHEN HE GETS INTO A PLACE. PT WAS RECENTLY IN THE [place] [facility] BEFORE MOVING IN WITH A ROOMMATE IN [place] AND THAT ROOMMATE STOLE PT'S BELONGINGS AND LEFT. CM DISCUSSED THAT PT IS NOT APPROPRIATE FOR HOSPTIAL ADMISSION AND THAT PT NEEDS A PLACE TO LIVE, THE HOSPITAL IS NOT A PLACE TO LIVE. CM ATTEMPTED TO ASSIST PT IN EXPLORING PERSONAL RESOURCES, PT STATES THAT HIS EX LILIAM AND DAUGHTER TRELL ARE NOT ABLE TO HELP AND THEY DON'T KNOW ANYONE WHO CAN. CM ASKED ABOUT GOING BACK TO [place] [facility], PT STATES HE WORKED THROUGH THE PROGRAM AND CANNOT GO BACK NOW. PT WANTS CM TO GET HIM INTO A [facility]. CM EXPLAINED THAT PT CANNOT GET INTO [facility], [facility], [facility], [facility], [facility] OR [facility]. PT BEGAN TO ARGUE ABOUT WHY THEY WILL NOT ACCEPT HIM. CM EXPLAINED AT THIS TIME, DISCUSSING WHY THEY ARE NOT ACCEPTING IS NOT PRODUCTIVE. CM ASKED PT IF HE WILL SIGN A STATEWIDE CONSENT FOR ANY [facility]. PT SIGNED CONSENT STATING HE HAS NO CHOICE. PT STATES HE CANNOT STAY IN A HOMELESS LONG-TERM BECAUSE OF HIS "MEDICAL NEEDS" AND BEING CONFINED TO ELECTRIC WHEELCHAIR. PT WILL CONSENT TO TRANSFER TO THE [place] IF THEY WILL ACCEPT HIM. CM CALLED [place] EXPEDITOR, , ASKED FOR REHAB OR HOMELESS PLACEMENT IN [facility]. CM CALLED JORGE LUIS [place]OR[place], [place] PALLET ASSEMBLER, , EXT [phone], LEFT DETAILED MESSAGE ASKING FOR ASSITANCE WITH PLACEMENT. CM CALLED CHELA [place], [place] [facility]EL[facility] DOMICILLARY COORDINATOR, , LEFT DETAILED MESSAGE. CM RECEIVED RETURN CALL FROM DANIEL MO , T OF [facility] WHO REPORTS PT IS NOT APPROPRIATE FOR REHAB SERVICES AND ACCORDING TO THERAPY NOTES FROM HOSPITAL REVIEWED BY CM, PT IS AT "BASELINE LEVEL OF FUNCTIONING." CM RECEIVED CALL FROM DR. SANTIZO, , OF [place] [facility], SHE HAS RECEIVED CALL FROM PT ASKING FOR MEDICAL TRANSFER TO [place]. CM PROVIDED. CM REVIEWED SITUATION, DR. SANTIZO AGREES THAT PT IS NOT APPRORIATE FOR MEDICAL TRANSFER TO [place] AND WILL SEND MESSAGE TO HOMELESS "DOM" FOR POSSIBLE ASSISTANCE. CM CALLED AND SPOKE TO SHOBHA OF [facility], , ASKED FOR ASSISTANCE WITH PLACEMENT, PROVIDED DETAILED INFORMATION TO PROBLEMS AT [place] FOR PLACEMENT IN REHAB AND [facility]. SHOBHA WILL SCREEN FOR ADMISSION; CM FAXED REFERRAL TO [facility] AT [phone]. CM WAITING ON RETURN CALL FROM CHELA OF [facility]; CM WAITING ADMISSION DETERMINATION FROM [facility] FOR REHAB TO ASSISTED CARE. PATIENT WAS TESTED FOR OXGYEN ON 03-19-18, WAS 87% ON ROOM AIR AT REST, 96% ON 2LNC AT REST. PT WILL NEED OXYGEN ARRANGEMENT IS HE IS NOT DISCHARGED TO NURSING FACILITY. Chinchilla Farmer: Broderick Yo DCPIA - Discharge Planning Initial Assessment Updated by [id number]: Broderick Yo on 03/19/19 12:29 pm * Is the patient Alert and Oriented? Yes * How many steps to enter\\exit or inside your home? NONE * PCP DR. BARRERA * [facility] [place] * Preadmission Environment Home with Family * ADLs Independent * Equipment Cane Power Chair or Electric Scooter * Other Equipment [employer] * List name and contact numbers for known caregivers / representatives who currently or will assist patient after discharge: LILIAM DESAI, EX , TRELL LLOYD, DTR, * Verbal permission to speak to the caregivers and representatives has been obtained from the patient. No * Community resources currently utilized None * Please name any agencies selected above. NONE * Additional services required to return to the preadmission environment? Yes * Can the patient safely return to the preadmission environment? No * Has this patient been hospitalized within the prior 30 days at any hospital? Yes External Providers External Provider: [facility] Next Contact Date: 03/22/2019 Service Request Date: Service Type: Resolution: Reviewer: Comments: Coverage Notice Reviewer: [id number] Christian Yo Notice Issued Date-Time: 03/19/2019 11:45 Notice Type: Patient Choice Letter Notice Delivered To: Patient Relationship to Patient: Canvas Goods Maker Name: Delivery Method: HAND - Hand Delivered Colette Days: Prior Verbal Notification: Recipient Understood Notice: Yes Recipient Signature: Yes Med Rec Note Co-signed by Attending: Coverage Notice Comment: ANY NURSING FACILITY Reviewer: [id number] Yo Notice Issued Date-Time: 03/24/2019 18:10 Notice Type: IM Discharge Notice Notice Delivered To: Patient Relationship to Patient: Canvas Goods Maker Name: Delivery Method: HAND - Hand Delivered Colette Days: Prior Verbal Notification: Recipient Understood Notice: Yes Recipient Signature: Yes Med Rec Note Co-signed by Attending: Coverage Notice Comment: Last DP export: 03/24/19 4:05 pm Patient Name: MAKENZIE DESAI Page 75047 at 1015 All edits/amendments must be made on the electronic document DICTATION DATE: 03/25/19 1014 SCIENTIFIC INFORMATICS PROJECT LEADER: OSMEL 03/25/19 1014 RPT#: [id number] DC DATE: STATUS: ADM IN [facility] [address] [place] [address] END OF REPORT
--- NOTE | 2019-03-25 10:25 | NUR ---
CALLED REPORT TO [facility]. PATIENT SIGNED PAPERS. [facility] NURSE PARISH HENDERSON , ESTEBAN WITH BE RECIEVING HIM TO ROOM 409 AND SHE IS GOING TO CALL BACK WHEN TRANSPORTATION WILL ARRIVE. SHE SAID THAT [facility] IS IN [place] RIGHT NOW, SO IT WILL TAKE THEM LONGER TO COME COLLECT HIM.
[2019-03-25 10:55] VITALS: BP 117/55
--- NOTE | 2019-03-25 12:56 | NUR ---
SAMSON RAUSCH CAME BY TO PERSONALLY [facility] [place], AND THEY WILL COME TO COLLECT THE PATIENT LATER THIS AFTERNOON.
[2019-03-25 13:55] VITALS: Ht 182.9 cm; Wt 99.9 kg
[2019-03-25 14:09] VITALS: BP 136/75
--- NOTE | 2019-03-25 15:08 | MORECARE ---
CASE MANAGEMENT DISCHARGE SUMMARY PATIENT: MAKENZIE DESAI UNIT: [id number] ADM DATE: 03/19/19 AGE: 68 : [birth year] SEX: M ROOM/BED: D.5006 AUTHOR: СЕРГЕЙ,DOC PHYSICIAN: REFERRING PHYSICIAN: SOO EASTON MD DATE OF SERVICE: 03/25/19 Discharge Plan Patient Name: MAKENZIE DESAI Facility: [facility]:[place] : 07/23/1950 Planned Disposition: Correction Facility Anticipated Discharge Date: 03/25/19 Discharge Date: Expected LOS: 6 Initial Reviewer: [id number] Initial Review Date: 03/19/2019 Generated: 03/25/19 4:08 pm Comments DCP- Discharge Planning Updated by [id number]: Broderick Yo on 03/25/19 9:[address] Patient Name: MAKENZIE DESAI Encounter No: [id number] : 07-23-1950 Primary Insurance: MEDICARE A & B Anticipated DC Date: 03-25-2019 Planned Disposition: [facility] Facility External Planned Provider: [facility], MEDICARE REHAB BED DCP follow-up note: CM RECEIVED DISCHARGE ORDER, FAXED DISCHARGE INFORMATION TO [facility] AT [phone]; NURSE REPORT TO BE CALLED TO [facility] AT [phone]. [facility] TO ARRANGE VAN TRANSPORTATION. Broderick Yo CASE PELON DCP- Discharge Planning Updated by [id number]: Broderick Yo on 03/24/19 4:[address] Patient Name: MAKENZIE DESAI Encounter No: [id number] : 07-23-1950 Primary Insurance: MEDICARE A & B Anticipated DC Date: 03-25-2019 Planned Disposition: Correction Facility External Planned Provider: [facility], MEDICARE REHAB BED DCP follow-up note: CM RECEIVED CALL FROM [facility], CORIN CABALLERO PT. CM RECEIVED CALL FROM FARAZ OF [facility], THEY WILL ACCEPT PT TOMORROW, 03-25-19 AND WILL ARRANGE VAN PELT GRADER. PT NOTIFIED AND IN AGREEMENT WITH DISCHARGE TO [facility]. IMPORTANT MESSAGE FROM MEDICARE PROVIDED AND EXPLAINED. FOR DISCHARGETO [facility] ON 03-25-19, FAX DISCHARGE INFORMATION TO [facility] AT [phone]; NURSE REPORT TO BE CALLED TO [facility] AT [phone]. [facility] TO ARRANGE VAN TRANSPORTATION. NIKKI Naik MANAGEMENT DCP- Discharge Planning Updated by [id number]: Broderick Yo on 03/23/19 3:[address] Patient Name: MAKENZIE DESAI Encounter No: [id number] : 07-23-1950 Primary Insurance: MEDICARE A & B Anticipated DC Date: 03-19-2019 Planned Disposition: Correction Facility External Planned Provider: [facility], MEDICARE REHAB BED DCP follow-up note: CM SPOKE TO PT IN ROOM, PT REPORTS FARAZ FROM [facility] MET WITH PT TODAY IN ROOM, PT IS HOPEFUL HE WILL BE ACCEPTED. CM CALLED AND SPOKE TO FARAZ OF [facility], , WHO REPORTS THEY ARE SCREENING FOR REHAB AN [facility]ODUCT [facility] ADMISSION, ASKED FOR UPDATE TO BE FAXED 03-24-18. CM RECEIVED C ALL FROM [facility] WHO WILL SEE IF SHE CAN ASSIST WITH GETTING SOMEONE FROM THE [facility] INVOLVED TO ASSIST WITH PT'S SITUATION. PT NOTIFIED. CM WAITING ADMISSION DETERMINATION FROM [facility] AND WILL CONTINUE TO SEEK HALF-WAY PLACEMENT AT ANY HALF-WAY IN THE [facility]ICAL [facility]. NIKKI Naik DCP- Discharge Planning Updated by [id number]: Broderick Yo on 03/22/19 4:[address] Patient Name: MAKENZIE DESAI Encounter No: [id number] : 07-23-1950 Primary Insurance: MEDICARE A & B Anticipated DC Date: 03-19-2019 Planned Disposition: Correction Facility External Planned Provider: [facility] ANY ACCEPTING FACILITY DCP follow-up note: CM RECEIVED TWO CALLS FROM PATIENT WHO STATES THAT HE HAS TALKED TO THE BUDSMAN AND SHE GAVE HIM A LIST OF NURSING HOMES TO GO TO. PT INFORMED CM THAT HE WAS TOLD [facility], [facility], [facility] AND SEVERAL OTHERS THAT HE DOES NOT KNOW AND DID NOT WRITE THEM DOWN. PT STATES HE WANTS TO GO A HALF-WAY TODAY IF POSSIBLE. CM FAXED UPDATE TO [facility], . CM CALLED AND SPOKE TO ELOISA [phone], PT IS ON DO NOT TAKE LIST FROM [facility]. CM FAXED REFERRAL TO [facility], AND TO [facility] MICHEAL PRICE (CECILIA), , CALLED AND SPOKE TO CECILIA OF [facility] AT [phone], SHE WILL SCREEN FOR ADMISSION AND ATTEMPT TO FIND PLACEMENT FOR PATIENT. CM SPOKE TO ANNA OF NURSING CONSULTANTS, PT HAS BEEN DECLINED BY [facility] AND [facility] AND [facility]. PT HAS BEEN DECLINED BY [facility] (AND ALL [facility] [place]), [facility], [facility], [facility] AND [facility]. CM ADVISED BY DINING ROOM CAPTAIN NURSE THAT PT HAS ELECTRIC WHEELCHAIR NOW IN HIS ROOM. CM WAITING ON RETURN CALL FROM [facility]; CM WAITING ADMISSION DETERMINATION FROM [facility], [facility], [facility] [place] IN [place]. PT WILL NEED OXYGEN ARRANGEMENT IS HE IS NOT DISCHARGED TO NURSING FACILITY. Carboy Filler: Broderick Yo Appended by Broderick Yo on 03/22/2019 17:14 HOT CAR OPERATOR: CM RECEIVED CALL FROM CECILIA LONGORIA OF [facility], PT HAS BEEN DECLINED BY [facility] AND MICHEAL PRICE. SHE HAS NO OTHER HOMES TO SEND REFERRALS TO IN HER GROUP. PT HAS BEEN DECLINED BY [facility] (AND ALL [facility] [place]), [facility], [facility], [facility], [facility] MICHEAL PRICE. CM ADVISED BY DINING ROOM CAPTAIN NURSE THAT PT HAS ELECTRIC WHEELCHAIR NOW IN HIS ROOM. CM WAITING ON RETURN CALL FROM [facility]; CM WAITING ADMISSION DETERMINATION FROM [facility] AND [facility]. PT WILL NEED OXYGEN ARRANGEMENT IS HE IS NOT DISCHARGED TO NURSING FACILITY. CM TO CONTINUE TO SEEK [facility] FOR PT. Carboy Filler: Broderick Yo DCP- Discharge Planning Updated by [id number]: Broderick Yo on 03/19/19 4:[address] Patient Name: MAKENZIE DESAI Admission Status: ER Accout number: [id number] Admission Date: 03-19-2019 : 07-23-1950 Admission Diagnosis: Attending: SOO EASTON Current LOS: 1 Anticipated DC Date: 03-19-2019 Planned Disposition: Correction Facility Primary Insurance: MEDICARE A & B PLANNED EXTERNAL PROVIDER: [facility] OR [facility] [place] Discharge Planning Comments: CM MET WITH PT IN ROOM TO DISCUSS DISCHARGE PLANNING AND NEEDS. PT REPORTS BEING HOMELESS. PT STATES HE DID NOT HAVE TWO GUNS AT [facility], PT STATES THEY WERE JUST "BB GUNS" AND HE GAVE THEM TO THE POLICE TO HOLD BECAUSE THE LITTLE "BLACK AIDES" AT [place] WERE THROWING A FIT ABOUT THEM. PT DOES NOT DENY HAVING KNIVES IN HIS BAG THAT THE POLICE ALSO HAVE NOW AND THAT HIS EX WILL PELT GRADER FOR HIM. PT STATES HE HAS A MEDICAL MARIJUANA CARD AND HE STILL HAS ALL OF HIS MARIJUANA, THE POLICE CANNOT TAKE WHAT HE HAS LEGALLY. PT HAS NO MEDICAL EQUIPMENT WITH HIM AND STATES HE WILL HAVE HIS ELECTRIC WHEELCHAIR BROUGHT TO HIM WHEN HE GETS INTO A PLACE. PT WAS RECENTLY IN THE [place] [facility] BEFORE MOVING IN WITH A ROOMMATE IN [place] AND THAT ROOMMATE STOLE PT'S BELONGINGS AND LEFT. CM DISCUSSED THAT PT IS NOT APPROPRIATE FOR HOSPTIAL ADMISSION AND THAT PT NEEDS A PLACE TO LIVE, THE HOSPITAL IS NOT A PLACE TO LIVE. CM ATTEMPTED TO ASSIST PT IN EXPLORING PERSONAL RESOURCES, PT STATES THAT HIS EX LILIAM AND DAUGHTER TRELL ARE NOT ABLE TO HELP AND THEY DON'T KNOW ANYONE WHO CAN. 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 PT WANTS CM TO GET HIM INTO A HALF-WAY. CM EXPLAINED THAT PT CANNOT GET INTO [facility], [facility], [facility], [facility], [facility] OR [facility]. PT BEGAN TO ARGUE ABOUT WHY THEY WILL NOT ACCEPT HIM. CM EXPLAINED AT THIS TIME, DISCUSSING WHY THEY ARE NOT ACCEPTING IS NOT PRODUCTIVE. CM ASKED PT IF HE WILL SIGN A STATEWIDE CONSENT FOR ANY HALF-WAY. PT SIGNED CONSENT STATING HE HAS NO CHOICE. PT STATES HE CANNOT STAY IN A [facility] F[facility] BECAUSE OF HIS "MEDICAL NEEDS" AND BEING CONFINED TO ELECTRIC WHEELCHAIR. PT WILL CONSENT TO TRANSFER TO THE [place] IF THEY WILL ACCEPT HIM. CM CALLED [place] [facility], , ASKED FOR REHAB OR HOMELESS PLACEMENT IN [facility]. CM CALLED JORGE LUIS [place], [place] [facility], , [phone], LEFT DETAILED MESSAGE ASKING FOR ASSITANCE WITH PLACEMENT. CM CALLED [facility] [place], [place] [facility] DOMICILLARY COORDINATOR, , LEFT DETAILED MESSAGE. CM RECEIVED RETURN CALL FROM DANIEL MO , Q OF [facility] WHO REPORTS PT IS NOT APPROPRIATE FOR REHAB SERVICES AND ACCORDING TO THERAPY NOTES FROM HOSPITAL REVIEWED BY CM, PT IS AT "BASELINE LEVEL OF FUNCTIONING." CM RECEIVED CALL FROM DR. SANTIZO, , OF [place] [facility], SHE HAS RECEIVED CALL FROM PT ASKING FOR MEDICAL TRANSFER TO [place]. CM PROVIDED. CM REVIEWED SITUATION, DR. SANTIZO AGREES THAT PT IS NOT APPRORIATE FOR MEDICAL TRANSFER TO [place] AND WILL SEND MESSAGE TO HOMELESS "DOM" FOR POSSIBLE ASSISTANCE. CM CALLED AND SPOKE TO SHOBHA OF [facility], , ASKED FOR ASSISTANCE WITH PLACEMENT, PROVIDED DETAILED INFORMATION TO PROBLEMS AT [place] FOR PLACEMENT IN REHAB AND [facility]. SHOBHA WILL SCREEN FOR ADMISSION; CM FAXED REFERRAL TO [facility] AT [phone]. CM WAITING ON RETURN CALL FROM CHELA OF [facility] [place]; CM WAITING ADMISSION DETERMINATION FROM [facility] FOR REHAB TO LONG-TERM CARE. PATIENT WAS TESTED FOR OXGYEN ON 03-19-18, WAS 87% ON ROOM AIR AT REST, 96% ON 2LNC AT REST. PT WILL NEED OXYGEN ARRANGEMENT IS HE IS NOT DISCHARGED TO NURSING FACILITY. Carboy Filler: Broderick Yo DCPIA - Discharge Planning Initial Assessment Updated by [id number]: Broderick Yo on 03/19/19 12:29 pm * Is the patient Alert and Oriented? Yes * How many steps to enter\\exit or inside your home? NONE * PCP DR. BARRREA * [facility] [place] * Preadmission Environment Home with Family * ADLs Independent * Equipment Cane Power Chair or Electric Scooter * Other Equipment [employer] * List name and contact numbers for known caregivers / representatives who currently or will assist patient after discharge: LILIAM DESAI, EX , TRELL LLOYD, DTR, * Verbal permission to speak to the caregivers and representatives has been obtained from the patient. No * Community resources currently utilized None * Please name any agencies selected above. NONE * Additional services required to return to the preadmission environment? Yes * Can the patient safely return to the preadmission environment? No * Has this patient been hospitalized within the prior 30 days at any hospital? Yes Coverage Notice Reviewer: [id number] Christian Yo Notice Issued Date-Time: 03/19/2019 11:45 Notice Type: Patient Choice Letter Notice Delivered To: Patient Relationship to Patient: Director Quality Assurance Name: Delivery Method: HAND - Hand Delivered Colette Days: Prior Verbal Notification: Recipient Understood Notice: Yes Recipient Signature: Yes Med Rec Note Co-signed by Attending: Coverage Notice Comment: ANY NURSING FACILITY Reviewer: [id number] Christian Yo Notice Issued Date-Time: 03/24/2019 18:10 Notice Type: IM Discharge Notice Notice Delivered To: Patient Relationship to Patient: Director Quality Assurance Name: Delivery Method: HAND - Hand Delivered Colette Days: Prior Verbal Notification: Recipient Understood Notice: Yes Recipient Signature: Yes Med Rec Note Co-signed by Attending: Coverage Notice Comment: Last DP export: 03/25/19 9:15 am Patient Name: MAKENZIE DESAI Page [id number] at 1508 All edits/amendments must be made on the electronic document DICTATION DATE: 03/25/19 1508 RETORT CONDENSER ATTENDANT: OSMEL 03/25/19 1508 RPT#: [id number] DC DATE: STATUS: ADM IN [facility] [address] [place] [address] END OF REPORT
--- NOTE | 2019-03-25 16:44 | NUR ---
SAMSON KAUFMAN JUST PICKED UP THE PATIENT CHAIR FOR TRANSPORT. HE WILL BE BACK SHORTLY FOR THE PATIENT. HE IS AWARE THE PATIENT MUST BE TRANSPORTED WHT OXYGEN.
--- NOTE | 2019-03-25 18:07 | NUR ---
PATIENT HAS BEEN DISCHARGED. ALL PATIENT BELONGINGS HAVE BEEN REMOVED FROM THE ROOM AND GONE TO THE [facility] WITH THE PATIENT. HE HAS BEEN TRANSFERED WITH O2 ORDERED. ALL PAPERS HAVE BEEN SIGNED, AND THE FOLDER HAS GONE WITH THE PATIENT TO THE [facility]. REPORT WAS CALLED TO THE RECIEVING NURSE PARISH HENDERSON AND THE PATIENT IS GOING TO ROOM 409.
== END 2019-03-25 18:10 | DRG 291 ==
LOC: D.ER 23:44 → D.M2 03-19 01:33
PROVIDERS: Family Medicine; ADMIT Family Medicine; ATTEND Family Medicine
DX: I11.0 Hypertensive heart disease with heart failure (principal); E43 Unspecified severe protein-calorie malnutrition; F17.213 Nicotine dependence, cigarettes, with withdrawal; I50.32 Chronic diastolic (congestive) heart failure; I48.91 Unspecified atrial fibrillation; J44.9 Chronic obstructive pulmonary disease, unspecified; K75.9 Inflammatory liver disease, unspecified; K74.60 Unspecified cirrhosis of liver; Z68.29 Body mass index [BMI] 29.0-29.9, adult; K21.9 Gastro-esophageal reflux disease without esophagitis; D64.9 Anemia, unspecified; Z79.01 Long term (current) use of anticoagulants; Z86.718 Personal history of other venous thrombosis and embolism; L20.9 Atopic dermatitis, unspecified

== ENCOUNTER 2019-05-06 11:56 | Inpatient (IN) | payer MEDICARE ==
[~2019-05-06] VITALS: Ht 182.9 cm; Wt 113.7 kg
[2019-05-06 13:05] LABS: BASOPHILS 0.2 % (0-2); EOSINOPHILS 0.5 % (0-7); HEMATOCRIT 35.8 % (42.0-54.0); HEMOGLOBIN 11.1 g/dL (13.5-17.5); IMMATURE GRANULOCYTES 1.2 % (0-5); LYMPHOCYTES 8.5 % (15-50); MCH 25.3 pg (26.0-34.0); MCV 81.5 fL (80.0-100.0); MONOCYTES 10.5 % (2-11); NEUTROPHILS 79.1 % (40-80); PLATELET COUNT 406 10x3/uL (130-400); RBC 4.39 10x6/uL (4.20-6.10); RDW 19.1 % (11.5-14.5)
[2019-05-06 13:17] LABS: CALC OSMOLALITY 284 mosm/kg (275-300); CALCIUM 7.8 mg/dL (8.5-10.1); CARBON DIOXIDE 33.8 mmol/L (21.0-32.0); CHLORIDE - SERUM 100 mmol/L (98-107); CREATININE - SERUM 0.8 mg/dL (0.6-1.3); GLUCOSE 92 mg/dL (74-106); POTASSIUM - SERUM 3.7 mmol/L (3.5-5.1); SODIUM 139 mmol/L (136-145); UREA NITROGEN 33 mg/dL (7-18); eGFR NON AFRICAN AMERICAN > 90 mL/min (90-120)
[2019-05-06 13:31] LABS: ALBUMIN 1.5 g/dL (3.4-5.0); ALKALINE PHOSPHATASE 236 U/L (30-120); ALT (SGPT) 13 U/L (10-68); CKMB 0.9 U/L (0.0-3.6); CREATINE KINASE 70 UL (21-232); PROTEIN - SERUM 6.2 g/dL (6.4-8.2)
[2019-05-06 13:42] VITALS: BP 111/83
[2019-05-06 13:47] LABS: APTT 34.5 SECONDS (22.8-39.4)
[2019-05-06 13:55] LABS: AMORPHOUS SEDIMENT <1+ /lpf (NONE SEEN); BACTERIA FEW /hpf (NEGATIVE); BILIRUBIN NEGATIVE (NEGATIVE); EPITHELIAL CELLS 0-5 /hpf (0-5); GLUCOSE NEGATIVE (NEGATIVE); GRANULAR CAST RARE /lpf (NONE SEEN); KETONE NEGATIVE (NEGATIVE); NITRITE NEGATIVE (NEGATIVE); SPECIFIC GRAVITY 1.015 (1.005-1.020); UROBILINOGEN NORMAL (NORMAL); WHITE CELLS - URINE OCC /hpf (NEGATIVE)
[2019-05-06 14:10] LABS: INR 1.79 (0.85-1.17); PROTIME 19.5 SECONDS (11.6-15.0)
--- NOTE | 2019-05-06 14:21 | NUR ---
OCCULT STOOL NEGATIVE; EDP ALYCIA NOTIFIED; PT C/O [id number]; UPDRAFT ORDERED.
--- NOTE | 2019-05-06 19:30 | NUR ---
PT SITTING UP IN BED, AOX4. UPSET STATING HE WANTED DILAUDID AND NOT MORPHINE. THIS NURSE CHECKED MAR, TOLD PT DOCTOR ORDERED DILAUDID AND WOULD BRING IT FOR HIM. GAVE ORDERED. PT TOLD THIS NURSE NOT TO DILUTE IT AND FLUSH FAST BEHIND IT BECAUSE HE CAN HANDLE IT. 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 THIS NURSE PUSHED DILAUDID SLOWLY. IV LEFT CHEST INFUSING NS @ 125, IV RIGHT CHEST INFUSING PROTONIX @ 10. UPON AUSCULTATION EXP WHEEZES HEARD BILAT. PT STATES HE HAS BEEN GETTING SOB AND COUGHING. O2 2L/NC. GAVE PT SANDWICH AND WATER. DENIES OTHER NEEDS. CL IN REACH, WILL CTM
[2019-05-06 19:43] VITALS: BP 117/69; BMI 33.7
[2019-05-06 19:59] LABS: CKMB 0.6 U/L (0.0-3.6); CREATINE KINASE 59 UL (21-232); MAGNESIUM - SERUM 1.4 mg/dL (1.8-2.4); TROPONIN-I 0.032 ng/mL (0.000-0.060)
[2019-05-06 20:00] VITALS: BP 123/72
[2019-05-06 22:08] LABS: UDS - AMPHET NEGATIVE QUAL (NEGATIVE); UDS - BARB NEGATIVE QUAL (NEGATIVE); UDS - BENZO NEGATIVE QUAL (NEGATIVE); UDS - COCAINE NEGATIVE QUAL (NEGATIVE); UDS - OPIATE POSITIVE QUAL (NEGATIVE); UDS - PCP NEGATIVE QUAL (NEGATIVE); UDS - THC POSITIVE QUAL (NEGATIVE)
[2019-05-06] MEDS ORDERED: BUPRENORPHINE/NALOX (22:21)
[2019-05-06] MEDS ORDERED: BUPRENORPHIN-N1 EACH ×2 (22:21→22:22)
[2019-05-06] MEDS ORDERED: BUMEX2 MG PO (22:24)
--- NOTE | 2019-05-06 23:00 | NUR ---
PT HIT CALL LIGHT MULTIPLE TIMES, WHEN THIS NURSE ENTERED ROOM PT WAS ASLEEP. WHEN NURSE WOKE PT UP HE COULD NOT REMEMBER WHAT HE NEEDED AND WOULD FALL BACK ASLEEP. AFTER ABOUT 45MIN PT STATED HE NEEDED PAIN MEDICINE WHEN ASKED WHY HE CALLED. TOLD PT IT WAS NOT TIME FOR PAIN MED. HE GOT MAD AND STATED YES IT IS, THAT HE HAD IT AT 1999. I TOLD HIM YES BUT IT WAS Q6PRN. PT GOT VERY AGITATED AND BEGAN HYPERVENTILATING AND STATING THAT WAS NOT GOING TO WORK BECAUSE HE WAS IN 10/10 PAIN AND HE NEEDED IT NOW, TO CALL THE DOCTOR RIGHT NOW. THIS NURSE TOLD PT THE DOCTOR JUST CHANGED THE MEDICATOIN BUT I COULD TRY. PT STATES DO THAT AND GET ME A BREATHING TRX BECAUSE NOW HE WAS WORKED UP. THIS NURSE LEFT ROOM AND TOLD RESP THAT PT REQUESTED BREATHING TRX. RESP WENT TO BEDSIDE. THIS NURSE CHECKED ON PT AFTER TREATMENT AND HE WAS SLEEPING COMFORTABLY WITHOUT DISTRESS.
[2019-05-07] VITALS: BP 118/69
--- NOTE | 2019-05-07 01:00 | NUR ---
PT CONTINUES TO SLEEP COMFORTABLY WITHOUT DISTRESS
[2019-05-07 01:08] LABS: BASOPHILS 0.1 % (0-2); EOSINOPHILS 0.7 % (0-7); HEMATOCRIT 34.3 % (42.0-54.0); HEMOGLOBIN 10.5 g/dL (13.5-17.5); IMMATURE GRANULOCYTES 1.2 % (0-5); LYMPHOCYTES 7.7 % (15-50); MCHC 30.6 g/dL (31.0-37.0); MCV 81.7 fL (80.0-100.0); MEAN PLATELET VOLUME 8.7 fL (7.4-10.4); MONOCYTES 11.9 % (2-11); NEUTROPHILS 78.4 % (40-80); PLATELET COUNT 398 10x3/uL (130-400); RDW 19.1 % (11.5-14.5); WBC 12.4 10x3/uL (4.8-10.8)
[2019-05-07 01:57] LABS: ALBUMIN 1.4 g/dL (3.4-5.0); ALKALINE PHOSPHATASE 208 U/L (30-120); ALT (SGPT) 10 U/L (10-68); BILIRUBIN - TOTAL 0.46 mg/dL (0.2-1.3); CALC OSMOLALITY 280 mosm/kg (275-300); CALCIUM 7.6 mg/dL (8.5-10.1); CARBON DIOXIDE 33.1 mmol/L (21.0-32.0); CHLORIDE - SERUM 102 mmol/L (98-107); CKMB 0.9 U/L (0.0-3.6); CREATINE KINASE 55 UL (21-232); GLUCOSE 105 mg/dL (74-106); MAGNESIUM - SERUM 1.7 mg/dL (1.8-2.4); POTASSIUM - SERUM 3.9 mmol/L (3.5-5.1); PROTEIN - SERUM 6.5 g/dL (6.4-8.2); SODIUM 137 mmol/L (136-145); UREA NITROGEN 32 mg/dL (7-18); eGFR NON AFRICAN AMERICAN 79 mL/min (90-120)
--- NOTE | 2019-05-07 02:00 | NUR ---
PT HIT CALL LIGHT, WHEN THIS NURSE ENTERED ROOM HE WAS SLEEPING. WOKE PT UP TO SEE WHAT HE NEEDED, PT IMMEDIATELY WOKE UP AND BEGAN MOANING SAYING HE WAS IN 10/10 PAIN IN HIS LEGS AND NEEDED DILAUDID. GAVE ORDERED. PT WAS ASLEEP BEFORE THIS NURSE LEFT ROOM. WILL CTM
[2019-05-07 04:00] VITALS: BP 123/73
--- NOTE | 2019-05-07 04:00 | NUR ---
REQUESTED AND GIVEN ROBAXIN AND MORPHINE FOR PAIN 10/24, GAVE ORDERED. PROVIDED NEW ICE PACK. DENIES OTHER NEEDS
[2019-05-07 08:02] LABS: CKMB 0.7 U/L (0.0-3.6); CREATINE KINASE 60 UL (21-232)
[2019-05-07 08:04] LABS: TROPONIN-I < 0.017 ng/mL (0.000-0.060)
[2019-05-07 09:48] VITALS: BP 117/82
--- NOTE | 2019-05-07 11:31 | NUR ---
BILATERAL LOWER LEGS ARE EDEMATOUS, TIGHT, RED, INFLAMED, SCALY, WARM AND TENDER TO THE TOUCH. NUMEROUS SCABS ARE NOTED ON THE TOES AND BOTH HEELS LOOK SLIGHTLY BRUISED. RECOMMEND KEEPING LEGS ELEVATED ON WEDGES WITH HEELS FLOATING. ALSO RECOMMEND DAILY CLEANSING WITH WOUND FOREIGN LANGUAGE TEACHER OR SOAP AND WATER. WOUND CARE WILL MONITOR.
[2019-05-07 11:38] VITALS: BMI 33.6
[2019-05-07 13:40] VITALS: BP 124/65
[2019-05-07 15:20] VITALS: Ht 182.9 cm; Wt 113.7 kg
[2019-05-07 16:28] VITALS: BP 116/74
--- NOTE | 2019-05-07 18:45 | NUR ---
COLLECTED URINE FROM UPPER PORT OF CATHETER FOR URINE CULTURE. WIPED WITH ALCOHOL FIRST. CLEANED BLE WITH WOUND CRIB ATTENDANT AND PLACED ON UNNA BOOTS ON BLE. PATIENT STATED HE DIDNT WANT ANYTHING TIGHT OVER THEM. LEGS ELEVATED AND HEELS FLOATING. IV X 2 INTACT. CALL LIGHT WITHIN REACH.
--- NOTE | 2019-05-07 19:30 | NUR ---
PATIENT SLEEPING WHEN ENTERING THE ROOM. ASKED PERMISSION FOR BEDSIDE REPORT AND PATIENT GRANTED. PATIENT WEARING 4L NC AT THIS TIME. HAS RT CHEST PIV THAT IS INFUSING PROTONIX AT 10 ML PER HOUR AND LEFT CHEST PIV THAT IS INFUSING NS @ 125. BOTH PATENT UPON ASSESSMENT. PATIENT HAS RODGERS CATHETER THAT IS A CHRONIC CATH AND PLACED PRIOR TO ADMINISTRATION. JOSE URINE IN BAG AND CONCENTRATED. BILATERAL LOWER EXTREMETIES ELEVATED ON WEDGES WITH HEELS FLOATING. SCABS AND DISCOLORATION TO BILATERAL TOES. DEJAN BOOT DRESSINGS TO BOTH LOWER EXTREMETIES. PATIENT REQUESTING PRN PAIN MEDICINE. DAY SHIFT RN STATES THAT SHE HAD JUST GIVEN IT AT 1845. PATIENT ROLLED EYES. PULLED UP EMAR IN ROOM AND SHOWED PATIENT WHERE IT WAS GIVEN AND NEXT DOSE DUE AT 2245. PATIENT MUFFLES UNDER BREATH "OKAY." PATIENT WITH EYES CLOSED AND SLEEPING BEFORE LEAVING THE ROOM. TURNED ON BED ALARM PRIOR TO LEAVING ROOM. CALL LIGHT IN ROOM. CPOC.
--- NOTE | 2019-05-07 22:06 | NUR ---
PATIENT REQUESTING DILAUDID. PATIENT REQUESTED DILAUDID AT 2040 WHEN ADMINISTERING OTHER MEDICATIONS. EXPLAINED DURING THE 2040 ADMINISTRATION THAT DILAUDID WAS NOT DUE UNTIL 2244. PATIENT STATED OKAY AT 2040 MED PASS. NOW PATIENT YELLING AT NURSING STAFF SAYING "I'M WATHCING THAT DAMN CLOCK AND YOU'RE CHANGING THE TIME EVERY 15 MINUTES." REASSURED PATIENT THAT THE TIME HAD NOT CHANGED. PATIENT YELLED AT THIS NURSE AGAIN "I'M WATCHING THAT CLOCK!" REASSURED PATIENT AGAIN THAT THE TIME HAS NOT CHANGED, IT WOULD BE DUE AT 2244 AND THIS NURSE WOULD ASSESS PAIN AT THE TIME MEDICATION IS DUE AND IF NEEDED WILL BRING AND ADMINISTER. PATIENT THEN YELLED AT NURSING STAFF AGAIN STATING "NO ONE HAS EMPTIED MY RODGERS AND IT IS BACKED UP." ANUM ALATORRE CHARGE IN ROOM AT THIS TIME AND WITNESSED PATIENT GETTING UPSET. RODGERS BAG CURRENTLY CONTAINS 125 ML OF URINE. SHOWED PATIENT RODGERS BAG. PATIENT THEN SAID "THIS NEEDS TO BE EMPTIED EVERY TIME IT HITS 100 ML OR IT'S GOING TO BACK FLOW AND BE STOPPED UP!" EMPTIED RODGERS BAG PER PATIENT REQUEST. PATIENT BACK TO SLEEP DURING EMPTYING PROCESS.
--- NOTE | 2019-05-08 02:46 | NUR ---
ANSWERED PATIENT CALL LIGHT. HE SCREAMED AT THIS NURSE "GIVE ME A BREATHING TREATMENT!" PULLED UP MAR TO SEE IF HE COULD HAVE ONE. TOLD PATIENT WHAT THIS NURSE WAS DOING AND HE SCREAMED "I CAN HAVE ONE INBETWEEN I NEED ONE NOW CALL THEM AND TELL THEM TO COME GIVE ME ONE NOW." THIS NURSE STATED OKAY AND WENT TO GET RESPIRATORY THERAPIST THAT WAS ON THE FLOOR. IMMEDIATELY WALKED INTO ROOM AND TOLD RT THAT PATIENT IN 2207 NEEDED RESPIRATORY TREATMENT AND RETURNED TO ROOM IMMEDIATELY. WHEN WALKING INTO ROOM AND TOLD PATIENT THAT RESPIRATORY IS COMING. PATIENT YELLED AT THIS NURSE "YOU ARE EMPATHETIC!" ASKED PATIENT TO PLEASE NOT YELL AT THIS NURSE. APOLOGIZED TO PATIENT IF THIS NURSE SEEMED EMPATHETIC BUT PROMISED THAT THIS NURSE WAS DOING EVERYTHING I COULD TO PROVIDE QUICK, EFFICIENT CARE. PATIENT STATED "IT'S NOT GETTING ME WHAT I NEED IT'S HOW YOU GIVE IT!" ANUM ALATORRE AND ANDRES LEMA WITNESS TO THIS NURSE PROVIDING QUICK AND COMPASSIONATE CARE TO PATIENT. CALLED SERVICE CLERK TO LET HER KNOW THAT PATIENT UPSET.
[2019-05-08 04:00] VITALS: BP 104/62
--- NOTE | 2019-05-08 06:31 | NUR ---
I have reviewed this patient and I concur with the Shift Assessment completed by the Licensed Practical Nurse today this shift.
[2019-05-08 06:33] LABS: BASOPHILS 0.1 % (0-2); EOSINOPHILS 0.7 % (0-7); HEMOGLOBIN 10.2 g/dL (13.5-17.5); IMMATURE GRANULOCYTES 1.4 % (0-5); LYMPHOCYTES 5.1 % (15-50); MCH 25.1 pg (26.0-34.0); MCV 83.5 fL (80.0-100.0); MEAN PLATELET VOLUME 8.7 fL (7.4-10.4); MONOCYTES 10.5 % (2-11); NEUTROPHILS 82.2 % (40-80); PLATELET COUNT 383 10x3/uL (130-400); RBC 4.07 10x6/uL (4.20-6.10); RDW 19.4 % (11.5-14.5); WBC 13.6 10x3/uL (4.8-10.8)
[2019-05-08 06:55] LABS: ALBUMIN 1.2 g/dL (3.4-5.0); ALKALINE PHOSPHATASE 194 U/L (30-120); ALT (SGPT) 12 U/L (10-68); CARBON DIOXIDE 31.6 mmol/L (21.0-32.0); CHLORIDE - SERUM 104 mmol/L (98-107); CREATININE - SERUM 0.9 mg/dL (0.6-1.3); GLUCOSE 103 mg/dL (74-106); MAGNESIUM - SERUM 1.6 mg/dL (1.8-2.4); PHOSPHOROUS 3.7 mg/dL (2.5-4.9); POTASSIUM - SERUM 3.7 mmol/L (3.5-5.1); PRO BNP 3829 pg/mL (0-125); PROTEIN - SERUM 6.4 g/dL (6.4-8.2); SODIUM 140 mmol/L (136-145); eGFR NON AFRICAN AMERICAN 89 mL/min (90-120)
[2019-05-08 06:56] LABS: CALC OSMOLALITY 281 mosm/kg (275-300); UREA NITROGEN 20 mg/dL (7-18)
--- NOTE | 2019-05-08 07:15 | NUR ---
REC'D IN BED WITH EYES CLOSED EASILY TO AROUSED WHEN NAME IS CALLED. RESP EVEN AND UNLABORED WITH NO DISTRESS NOTED. CAN EXPRESS NEEDS AND WANTS. DRESSING NOTED TO BLE. ASSESSMENT COMPLETED. C/L IN REACH AT BEDSIDE.
[2019-05-08 08:28] VITALS: BP 124/55
--- NOTE | 2019-05-08 09:33 | NUR ---
MEDICATED WITH DILAUDID PER ORDERS FOR C/O PAIN RATING 9/10 ON PAIN SCALE TO BLE. C/L IN REACH AT BEDSIDE.
--- NOTE | 2019-05-08 13:40 | NUR ---
REC'D DILAUDID 1.5 MG AT THIS TIME FOR C/O PAIN RATING 9/10 ON PAIN SCALE. C/L IN REACH AT BEDSIDE.
[2019-05-08 14:07] VITALS: BP 122/92
--- NOTE | 2019-05-08 14:42 | NUR ---
I have reviewed this patient and I concur with the Shift Assessment completed by the Licensed Practical Nurse today this shift.
--- NOTE | 2019-05-08 15:27 | NUR ---
CALL WAS PLACED TO BAIRD CAFETERIA COUNTER ATTENDANT ABOUT PT INCREASE HR OF 188. REC'D NEW ORDERS FOR AN 12 LEAD EKG AND CAFETERIA COUNTER ATTENDANT CAME TO FLOOR TO ASSESS PT.
--- NOTE | 2019-05-08 15:45 | NUR ---
DR. MO WAS PAGE ABOUT PT ELEVATED HR. AWAITING CALL BACK.
--- NOTE | 2019-05-08 15:55 | NUR ---
REC'D CALL BACK FROM DR. MO REC'D NEW ORDES FOR CARDIZEM 25 MG BOLUS AND THEN START DRIP @ 20. PT WAS MADE AWARE OF NEW ORDERS. C/L IN REACH AT BEDSIDE.
[2019-05-08 16:19] VITALS: BP 121/64
--- NOTE | 2019-05-08 16:36 | NUR ---
CALL PLACED TO HOUSE SUPERVISER ABOUT WHEN ROOM IS GOING TO BE AVAILABLE FOR PT TO TRANSFER WAS INFORMED THAT THE ROOM WAS BEING STAT CLEANED AT THIS TIME.
--- NOTE | 2019-05-08 17:25 | NUR ---
PT TRANSFERRED TO ROOM 2112 VIA BED AWAKE AND ALERT WITH ALL PERSONAL BELONGING. HAS O2 IN USE VIA N/C @ 4 L/M. NO C/O NOTED. REPORT GIVEN TO NURSE PRIOR TO TRANSPORT. C/L IN REACH AT BEDSIDE
--- NOTE | 2019-05-08 18:02 | NUR ---
PT TRANSFERED TO FLOOR VIA BED FROM MED SURG. PT 11/24 PAIN IN LEGS. PRN PAIN MEDICATION GIVEN. PT A/O X4. CARDIZEM DRIP STARTED BY ANUM HAILE. PT RUNNING 135 TELE. BED LOW CALL LIGHT WITHIN REACH. WILL CONTINUE TO MONITOR.
--- NOTE | 2019-05-08 20:00 | NUR ---
REPORT RECIEVED AND INITIAL ROUNDS COMPLETED. SEE SHIFT ASSESSMENT. NO DISTRESS. RESTING IN BED.
[2019-05-08 21:30] VITALS: BP 116/71
--- NOTE | 2019-05-08 23:24 | NUR ---
PT ROTOR BALANCER LIGHT WITH REQUESTS FOR BREATHING TREATMENT AND PAIN MEDICATION. RT IN ROOM TO ASSESS. IV DILAUDID ADMINISTERED. CARDIZEM INFUSING AT 15ML/HR. 90SR PER TELEMETRY. CPOC.
[2019-05-09 00:30] VITALS: BP 126/65
--- NOTE | 2019-05-09 01:43 | NUR ---
PT YELLING OUT FOR PAIN MEDS. SCREAMING THAT HE CAN HAVE PAIN MEDS EVERY 2 HOURS AND HE WANTS IT NOW. BEATING HIS HEAD WITH BOTH FISTS. VERIFIED AT COMPUTER THAT DILAUDID FREQUENCY IS EVERY 4 HOURS. PT THEN DEMANDED TO HAVE TYLENOL FOR HIS ONGOING PAIN. ABT UP AND INFUSING, TYLENOL PROVIDED. FAN FOR C/O BEING HOT. CPOC.
--- NOTE | 2019-05-09 04:00 | NUR ---
PT RESTING IN BED WITH EYES CLOSED. IVF INFUSING. CARDIZEM INFUSING. CPOC.
[2019-05-09 04:30] VITALS: BP 98/62
[2019-05-09 05:02] LABS: BASOPHILS 0.1 % (0-2); EOSINOPHILS 0.4 % (0-7); HEMATOCRIT 34.8 % (42.0-54.0); HEMOGLOBIN 10.6 g/dL (13.5-17.5); IMMATURE GRANULOCYTES 1.6 % (0-5); LYMPHOCYTES 4.5 % (15-50); MCHC 30.5 g/dL (31.0-37.0); MCV 82.1 fL (80.0-100.0); MEAN PLATELET VOLUME 8.9 fL (7.4-10.4); MONOCYTES 9.9 % (2-11); NEUTROPHILS 83.5 % (40-80); PLATELET COUNT 412 10x3/uL (130-400); RBC 4.24 10x6/uL (4.20-6.10); RDW 19.3 % (11.5-14.5); WBC 16.6 10x3/uL (4.8-10.8)
[2019-05-09 06:04] LABS: ALBUMIN 1.3 g/dL (3.4-5.0); ALKALINE PHOSPHATASE 236 U/L (30-120); BILIRUBIN - TOTAL 0.63 mg/dL (0.2-1.3); CALC OSMOLALITY 273 mosm/kg (275-300); CALCIUM 7.6 mg/dL (8.5-10.1); CARBON DIOXIDE 27.2 mmol/L (21.0-32.0); CHLORIDE - SERUM 100 mmol/L (98-107); GLUCOSE 108 mg/dL (74-106); MAGNESIUM - SERUM 1.5 mg/dL (1.8-2.4); PHOSPHOROUS 4.1 mg/dL (2.5-4.9); POTASSIUM - SERUM 3.7 mmol/L (3.5-5.1); PROTEIN - SERUM 6.7 g/dL (6.4-8.2); SODIUM 135 mmol/L (136-145); UREA NITROGEN 21 mg/dL (7-18); eGFR NON AFRICAN AMERICAN 79 mL/min (90-120)
[2019-05-09 06:05] LABS: ALT (SGPT) 8 U/L (10-68)
[2019-05-09 08:00] VITALS: BP 135/70
[2019-05-09 16:00] VITALS: BP 117/71
--- NOTE | 2019-05-09 19:10 | NUR ---
BEDSIDE REPORT RECEIVED FROM DAY SHIFT, PT CARE ASSUMED. INTRODUCED SELF AND WROTE NAME ON BOARD. PT SITTING UP IN BED WITH EYES CLOSED, RR EVEN AND NONLABORED, NO S/S OF DISTRESS, AROUSES EASILY TO VOICE. DENIES ANY NEEDS AT THIS TIME. BED IN LOWEST POSITION, SR X2, CALL LIGHT WITHIN REACH. WILL CONTINUE TO MONITOR.
[2019-05-09 20:30] VITALS: BP 127/76
[2019-05-10 00:30] VITALS: BP 98/74
[2019-05-10 04:30] VITALS: BP 140/63
[2019-05-10 06:09] LABS: BASOPHILS 0.1 % (0-2); EOSINOPHILS 0.7 % (0-7); HEMOGLOBIN 10.7 g/dL (13.5-17.5); IMMATURE GRANULOCYTES 1.3 % (0-5); LYMPHOCYTES 4.7 % (15-50); MCH 24.8 pg (26.0-34.0); MCHC 30.6 g/dL (31.0-37.0); MEAN PLATELET VOLUME 8.8 fL (7.4-10.4); MONOCYTES 8.3 % (2-11); NEUTROPHILS 84.9 % (40-80); PLATELET COUNT 444 10x3/uL (130-400); RBC 4.32 10x6/uL (4.20-6.10)
[2019-05-10 06:51] LABS: ALBUMIN 1.2 g/dL (3.4-5.0); ALKALINE PHOSPHATASE 224 U/L (30-120); ALT (SGPT) 9 U/L (10-68); BILIRUBIN - TOTAL 0.57 mg/dL (0.2-1.3); CALC OSMOLALITY 277 mosm/kg (275-300); CALCIUM 8.3 mg/dL (8.5-10.1); CARBON DIOXIDE 33.1 mmol/L (21.0-32.0); CHLORIDE - SERUM 100 mmol/L (98-107); GLUCOSE 104 mg/dL (74-106); MAGNESIUM - SERUM 1.7 mg/dL (1.8-2.4); POTASSIUM - SERUM 3.2 mmol/L (3.5-5.1); PROTEIN - SERUM 6.8 g/dL (6.4-8.2); SODIUM 137 mmol/L (136-145); UREA NITROGEN 24 mg/dL (7-18); eGFR NON AFRICAN AMERICAN 79 mL/min (90-120)
--- NOTE | 2019-05-10 08:04 | NUR ---
RECIEVED REPORT. PATIENT IS RESTING QUIETLY AT THIS TIME. DENIES ANY NEEDS AT THIS TIME.
--- NOTE | 2019-05-10 09:53 | NUR ---
CALLED RT , PATIENT IS REQUESTING BREATHING TX. GAVE PAIN MED ORDERED .
[2019-05-10 10:26] VITALS: BP 126/72
--- NOTE | 2019-05-10 11:54 | CN ---
PATIENT NAME:MAKENZIE CUNHA MEDICAL RECORD: [id number] : [birth year] LOCATION:D. D.2113 ADMIT DATE: 05/06/19 ACCOUNT: [id number] CONSULTING PHYSICIAN: YI MO MD REFERRING PHYSICIAN: BERNARD JOY DO DATE OF CONSULTATION: 05/10/2019 CARDIOLOGY CONSULTATION DIAGNOSES: 1. Paroxysmal atrial fibrillation. 2. Cellulitis. 3. Chronic obstructive pulmonary disease. 4. Smoking history. 5. Hypertension. HISTORY OF PRESENT ILLNESS: Mr. Cunha presents with lower extremity cellulitis, found to have intermittent atrial fibrillation. He has a history of atrial fibrillation, he was previously on sotalol. PHYSICAL EXAMINATION: CONSTITUTIONAL/GENERAL APPEARANCE: Well nourished, well developed, appears stated age. EYES: Lids and conjunctivae noninjected. No discharge. No pallor. ENT: Lips within normal limit. No cyanosis. No pallor. NECK: Carotid arteries, bilateral normal upstroke. No bruits. No thrills. No jugular venous pressure or distention. CERVICAL LYMPH NODES: Nontender. Nonenlarged. THYROID: Not enlarged. No nodules. CARDIOVASCULAR: Precordial exam, nondisplaced. No heaves or pericardial thrills. Rate and rhythm, regular. Heart sounds, normal S1, normal S2. No S3, no gallop, no rub. Systolic murmur, not heard. Diastolic murmur, not heard. RESPIRATORY: Respiratory effort, unlabored. Normal curvature. No thoracic deformity. No chest wall tenderness. Percussion, resonant. Auscultation, clear. No wheezes, no rales, no rhonchi. ABDOMEN: Soft, nondistended, nontender. No abdominal pain, no vomiting and normal appetite. MUSCULOSKELETAL: No joint tenderness, normal gait, normal tone. SKIN: Warm and dry. OVERALL IMPRESSION: Paroxysmal atrial fibrillation. We will restart his sotalol at 120 mg b.i.d. No other cardiac workup or treatment is necessary. TRANSINT:[id number] Voice Confirmation ID: [id number] DOCUMENT ID: [id number] YI MO MD at 1154 CC: [id number] DICTATION DATE: 05/10/19 0755 BLOOD TESTER: 05/10/19 0831 ADM IN [address] [place] [address]
--- NOTE | 2019-05-10 12:00 | NUR ---
CALLED AND REPORTED THAT PATIENT IS HAVING PAIN IN BETWEEN DOSES OF PAIN MEDICATION. YANNA ACKNOWLEDGED AND REPORTED THAT SHE WILL REVIEW HIS HOME MEDS.
--- NOTE | 2019-05-10 13:53 | NUR ---
Spoke with the patient about v/q . He said he did not want to do this exam and that is not why he came to the hosptial. Let Blake and Rena GUTIERREZ know. Exam is cancelled.
--- NOTE | 2019-05-10 13:55 | NUR ---
PATIENT REFUSED LUNG SCAN. HE STATES THAT HE WANTS TO GET BACK TO HOSPICE.
--- NOTE | 2019-05-10 14:38 | NUR ---
Nutrition Follow-up: Pt sleeping soundly at time of visit. Chart reviewed. Pt plans to return to hospice. Diet: Cardiac PO intake: 67% avg (05/07) No new wt; last wt: 248# (05/07) Labs noted: K+ 3.2, Ca 8.3, Mg 1.7, PO4 4.0, Alb 1.2 Meds noted: Protonix, Bumex -Continue current diet as tolerated. -Offer nutrition supplements if avg PO intake <50%. -Need new wt; noted daily wts ordered. -RD following.
[2019-05-10 14:55] VITALS: BP 115/70
--- NOTE | 2019-05-10 15:38 | NUR ---
PATIENT FAMILY LILIAM CAME UP TO CHECK ON THE PATIENT AND SHE STATES THAT THE PATIENT SAYS HE DOES NOT WANT TO BE FIXED. REPORTED THIS TO DR TAPIA, AND HE STATES THAT HE WILL SPEAK WITH THE PATIENT ABOUT THE AFRO TO RESTORE BLOOD FLOW TO HIS LEGS AND FEET.
--- NOTE | 2019-05-10 19:43 | NUR ---
RECIVED REPORT FOR THIS PT. ASSISTED PT TO BS COMMODE x2. PT STATED THAT HE DOES NOT WANT THE BEDPAN AND WANTS TO GET UP TO BEDSIDE. CALL LIGHT WITHIN REACH WILL CONTINUE TO MONITOR.
[2019-05-10 20:36] VITALS: BP 117/64
--- NOTE | 2019-05-10 22:40 | NUR ---
PT REFUSED MEDICATION NEURONTIN. CALL LIGHT WITH IN REACH. WILL CONTINUE TO MONITOR.
--- NOTE | 2019-05-10 23:00 | NUR ---
PT LYING IN AWAKE ALERT AND ORIENTED x4. PT COMPLAINS OF PAIN PRN PAIN MEDICATION GIVEN. CALL LIGHT WITH IN REACH AND BED IS IN LOWEST POSTION. PT ENCOURAGED TO CALL FOR HELP WHEN NEEDED. WILLCONTINUE TO MONITOR
--- NOTE | 2019-05-11 00:46 | NUR ---
PRN PAIN MEDICATION GIVEN FOR 9/10 PAIN LEVEL. PT ENCOURAGED TO CALL FOR HELP WHEN NEEDED. CALL LIGHT WITH IN REACH AND BED IS INLOWEST POSITION. WILL CONTINUE TO MONITOR.
--- NOTE | 2019-05-11 01:10 | NUR ---
PT REFUSED CARDIZEM MEDIACTION. EXPLAINED TO PT WHAT THE MEDICATION IS USED FOR AND HE STATES THAT HE UNDERSTANDS AND THAT HE DOES NOT WANT THE caRDIZEM. DR. HANDY NOTIFIED. CALL LIGHT WITH IN REACH AND BED IS IN LOWEST POSITON. PT ENCOURAGED TO CALL FOR HELP WHEN NEEDED. WILL CONTINUE TO MONITOR.
--- NOTE | 2019-05-11 05:16 | NUR ---
PRN PAIN MEDICATION GIVEN FOR 10/10 PAIN LEVEL. PT REFUSED PROTONIX MEDICATION. STATING THAT HE DOES NOT NEED IT. PT REFUSED DRESSING CHANGE TO BLE. PT ALSO REFUSED VITAL SIGNS AND BED BATH. CALL LIGHT WITH IN REACH AND BED IS IN LOWEST POSITION. WILL CONTINUE TO MONITOR.
[2019-05-11 07:01] LABS: HEMATOCRIT 39.6 % (42.0-54.0); MCH 24.8 pg (26.0-34.0); MCHC 30.3 g/dL (31.0-37.0); MCV 81.8 fL (80.0-100.0); MEAN PLATELET VOLUME 9.2 fL (7.4-10.4); PLATELET COUNT 510 10x3/uL (130-400); RBC 4.84 10x6/uL (4.20-6.10); WBC 20.8 10x3/uL (4.8-10.8)
--- NOTE | 2019-05-11 07:03 | NUR ---
PT LYING IN BED RESTING WITH EYES CLOSED. NO SIGNS OR SYMPTOMS OF DISTRESS NOTED. RESPIRATIONS EVEN AND UNLABORED. CALL LIGHT WITH IN REACH. WILL CONTINUE TO MONITOR
[2019-05-11 07:09] LABS: ALBUMIN 1.3 g/dL (3.4-5.0); ANION GAP 8.7 mmol/L (8-16); BILIRUBIN - TOTAL 0.9 mg/dL (0.2-1.3); CALCIUM 8.4 mg/dL (8.5-10.1); CARBON DIOXIDE 30.4 mmol/L (21.0-32.0); CREATININE - SERUM 1.4 mg/dL (0.6-1.3); MAGNESIUM - SERUM 1.8 mg/dL (1.8-2.4); PHOSPHOROUS 5.1 mg/dL (2.5-4.9); POTASSIUM - SERUM 4.1 mmol/L (3.5-5.1)
[2019-05-11 07:47] LABS: EOSINOPHILS 1 % (0-7); LYMPHOCYTES 4 % (15-50); MONOCYTES 6 % (2-11); NEUTROPHILS 79 % (40-80); PLATELET ESTIMATE INCREASED
[2019-05-11 08:34] VITALS: BP 114/65
[2019-05-11] MEDS ORDERED: DOXYCYCLINE HY100 M2 PO (10:05)
[2019-05-11] MEDS ORDERED: BETAPACE 120 M120 MG PO (10:05)
[2019-05-11] MEDS ORDERED: PULMICORT0.5 MG/21 UPD (10:06)
[2019-05-11] MEDS ORDERED: PROTONIX40 MG PO (10:06)
--- NOTE | 2019-05-11 11:16 | MORECARE ---
CASE MANAGEMENT DISCHARGE SUMMARY PATIENT: MAKENZIE DESAI UNIT: [id number] ADM DATE: 05/06/19 AGE: 68 : [birth year] SEX: M ROOM/BED: D.2113 AUTHOR: JEWEL RUSHING PHYSICIAN: REFERRING PHYSICIAN: BERNARD JOY DO DATE OF SERVICE: 05/11/19 Discharge Plan Patient Name: MAKENZIE DESAI [facility] : 07/23/1950 Planned Disposition: Nursing Facility [facility] Anticipated Discharge Date: 05/11/19 Discharge Date: Expected LOS: 5 Initial Reviewer: [email or web address] Initial Review Date: 05/11/2019 Generated: 05/11/19 12:16 pm Patient Name: MAKENZIE DESAI Page [phone] at 1116 All edits/amendments must be made on the electronic document DICTATION DATE: 05/11/19 1116 LEHR LOADER: OSMEL 05/11/19 1116 RPT#: [id number] DC DATE: STATUS: ADM IN [facility] [address] [place] [address] END OF REPORT
--- NOTE | 2019-05-11 11:24 | MORECARE ---
CASE MANAGEMENT DISCHARGE SUMMARY PATIENT: MAKENZIE DESAI S UNIT: [id number] ADM DATE: 05/06/19 AGE: 68 : [birth year] SEX: M ROOM/BED: D.2113 AUTHOR: JEWEL RUSHING PHYSICIAN: REFERRING PHYSICIAN: BERNARD JOY DO DATE OF SERVICE: 05/11/19 Discharge Plan Patient Name: MAKENZIE DESAI [facility] [facility] 07/23/1950 Planned Disposition: Nursing Facility [facility] Cert Anticipated Discharge Date: 05/11/19 Discharge Date: Expected LOS: 5 Initial Reviewer: [email or web address] Initial Review Date: 05/11/2019 Generated: 05/11/19 12:23 pm DCPIA - Discharge Planning Initial Assessment Updated by [email or web address]: Broderick Yo on 05/11/19 11:20 am * Is the patient Alert and Oriented? Yes * How many steps to enter\exit or inside your home? NONE * PCP DR. OSORIO BAILEY * Pharmacy [facility] * Preadmission Environment [facility] * Facility Name [facility] * ADLs Partial Dependent * Partial ADLs (Assistance needed) Ambulation Bathing Dressing Medication Management Toileting Transfers * Equipment Other * Other Equipment ALL MEDICAL EQUIPMENT PROVIDED BY FACILITY * List name and contact numbers for known caregivers / representatives who currently or will assist patient after discharge: LILIAM DESAI, * Verbal permission to speak to the caregivers and representatives has been obtained from the patient. Yes * Community resources currently utilized None * Please name any agencies selected above. NONE * Additional services required to return to the preadmission environment? No * Can the patient safely return to the preadmission environment? Yes * Has this patient been hospitalized within the prior 30 days at any hospital? No Last DP export: 05/11/19 10:16 a Patient Name: MAKENZIE DESAI Page [phone] at 1124 All edits/amendments must be made on the electronic document DICTATION DATE: 05/11/19 1123 PSYCHOLOGY TECHNICIAN: OSMEL 05/11/19 1123 RPT#: [id number] DC DATE: STATUS: ADM IN [facility] [address] [place] [address] END OF REPORT
--- NOTE | 2019-05-11 11:54 | MORECARE ---
CASE MANAGEMENT DISCHARGE SUMMARY PATIENT: MAKENZIE DESAI UNIT: [id number] ADM DATE: 05/06/19 AGE: 68 : [birth year] SEX: M ROOM/BED: D.9289 AUTHOR: СЕРГЕЙDOC PHYSICIAN: REFERRING PHYSICIAN: BERNARD JOY DO DATE OF SERVICE: 05/11/19 Discharge Plan Patient Name: MAKENZIE DESAI Facility: [facility]:[place] : 07/23/1950 Planned Disposition: Nursing Facility [facility] Cert Anticipated Discharge Date: 05/11/19 Discharge Date: Expected LOS: 5 Initial Reviewer: [email or web address] Initial Review Date: 05/11/2019 Generated: 05/11/19 12:53 pm Comments DCP- Discharge Planning Updated by [email or web address]: Broderick Yo on 05/11/19 10:[address] Patient Name: MAKENZIE DESAI Admission Status: ER Accout number: [id number] Admission Date: 05-06-2019 : 07-23-1950 Admission Diagnosis: Attending: BERNARD JOY Current LOS: 5 Anticipated DC Date: 05-11-2019 Planned Disposition: Nursing Facility [facility] Cert Primary Insurance: MEDICARE A & B PLANNED EXTERNAL PROVIDER: [facility], LONG-TERM CARE MEDICAID BED Discharge Planning Comments: CM SPOKE TO JACEY PERKINS WHO ANTICIPATES DISCHARGE TODAY. CM MET WITH PT IN ROOM TO DISCUSS DISCHARGE PLANNING AND NEEDS. PT REPORTS LIVING AT [place] FOR LONG-TERM CARE WITH [facility]. PT REVOKED HOSPICE TO HAVE HIS FEET "LOOKED AT" BUT THEY ARE NOT DOING ANYTHING FOR HIS FEET AND PT WANTS TO GO BACK TO [place] AND RE ENROLL WITH [facility]. PT REPORTS ALL MEDICAL EQUIPMENT PROVIDED BY THE FACILITY, HE IS NOT UP AND OUT OF BED AT THE FACILITY. PT STATES THEY HAVE NOT BATHED HIM SINCE HE HAS BEEN AT [place] OR CHANGED HIS RODGERS CATHETER. PT REPORTS BEING IN [place] FOR 18 DAYS. PT STATES HE REPORTED THIS TO [facility] AND ALL HE DID WAS "COME OUT THERE AND SMILE AT ME." CHOICE SIGNED FOR [facility] AND [facility]. PT DENIES DISCHARGE NEEDS AND WANTS TO GO BACK TO [place] TODAY. CM REVIEWED CHART AND CALLED [facility], , PROVIDED REPORT OF EMERGENCY ROOM PHYSICIANS CONCERNS REGARDING [place], CASE #[id number]. CM CALLED [place], , SPOKE TO SYD WHO ADVISED THEY WILL ACCEPT PT BACK FOR SENIOR PROCESS ENGINEER CARE WITH HOSPICE TODAY. CM CALLED [facility], , SPOKE TO MARÍA WHO INFORMED CM THAT THEY WILL EVALUATE AND ADMIT AT THE [facility] TODAY. CM FAXED REFERRAL AND DISCHARGE INFORMATION TO [facility] AT [phone] AND ALSO [facility] AT [phone]. NURSE REPORT TO BE CALLED TO [facility] AT [phone], [facility] TO ADMIT AT THE FACILITY AFTER PT'S ARRIVAL. PT TO TRANSPORT VIA AMBULANCE. Metal Drill Press Operator: Broderick oY DCPIA - Discharge Planning Initial Assessment Updated by [id number]: Broderick Yo on 05/11/19 11:20 am * Is the patient Alert and Oriented? Yes * How many steps to enter\\exit or inside your home? NONE * PCP DR. OSORIO BAILEY * Pharmacy [facility] * Preadmission Environment Sn[facility] Acute Care Facility * Facility Name [facility] * ADLs Partial Dependent * Partial ADLs (Assistance needed) Ambulation Bathing Dressing Medication Management Toileting Transfers * Equipment Other * Other Equipment ALL MEDICAL EQUIPMENT PROVIDED BY FACILITY * List name and contact numbers for known caregivers / representatives who currently or will assist patient after discharge: LILIAM DESAI, * Verbal permission to speak to the caregivers and representatives has been obtained from the patient. Yes * Community resources currently utilized None * Please name any agencies selected above. NONE * Additional services required to return to the preadmission environment? No * Can the patient safely return to the preadmission environment? Yes * Has this patient been hospitalized within the prior 30 days at any hospital? No External Providers External Provider: [facility] Next Contact Date: 05/11/2019 Service Request Date: Service Type: Resolution: Reviewer: Comments: External Provider: [facility] Next Contact Date: 05/11/2019 Service Request Date: Service Type: Resolution: Reviewer: Comments: Last DP export: 05/11/19 10:24 a Patient Name: MAKENZIE DESAI Page [phone] at 1154 All edits/amendments must be made on the electronic document DICTATION DATE: 05/11/19 115 FORM SETTER SUPERVISOR: OSMEL 05/11/19 1153 RPT#: [id number] DC DATE: STATUS: ADM IN [facility] [address] [place] [address] END OF REPORT
--- NOTE | 2019-05-11 12:09 | NUR ---
PT DISCHARGED TO [facility]. PIV'S REMOVED WITH CATHETER TIP FULLY INTACT. TELEMETRY REMOVED AND RETURNED. PT SIGNED PROPER DISCHARGE INSTRUCTIONS AND REMOVED ALL VALUABLES FROM THE ROOM.
--- NOTE | 2019-05-11 16:47 | MORECARE ---
CASE MANAGEMENT DISCHARGE SUMMARY PATIENT: MAKENZIE DESAI UNIT: [id number] ADM DATE: 05/06/19 AGE: 68 : [birth year] SEX: M ROOM/BED: D.6083 AUTHOR: СЕРГЕЙDOC PHYSICIAN: REFERRING PHYSICIAN: BERNARD JOY DO DATE OF SERVICE: 05/11/19 Discharge Plan Patient Name: MAKENZIE DESAI Facility: [facility]:[place] : 07/23/1950 Planned Disposition: Nursing Facility [facility] Cert Anticipated Discharge Date: 05/11/19 Discharge Date: 05/11/2019 Expected LOS: 5 Initial Reviewer: [email or web address] Initial Review Date: 05/11/2019 Generated: 05/11/19 5:46 pm Comments DCP- Discharge Planning Updated by [email or web address]: Broderick Yo on 05/11/19 10:[address] Patient Name: MAKENZIE DESAI Admission Status: ER Accout number: [id number] Admission Date: 05-06-2019 : 07-23-1950 Admission Diagnosis: Attending: BERNARD JOY Current LOS: 5 Anticipated DC Date: 05-11-2019 Planned Disposition: Nursing Facility [facility] Cert Primary Insurance: MEDICARE A & B PLANNED EXTERNAL PROVIDER: [facility], AGRICULTURAL SPECIALIST CARE MEDICAID BED Discharge Planning Comments: CM SPOKE TO JACEY PERKINS WHO ANTICIPATES DISCHARGE TODAY. CM MET WITH PT IN ROOM TO DISCUSS DISCHARGE PLANNING AND NEEDS. PT REPORTS LIVING AT [place] FOR INTERMEDIATE CARE WITH [facility]. PT REVOKED HOSPICE TO HAVE HIS FEET "LOOKED AT" BUT THEY ARE NOT DOING ANYTHING FOR HIS FEET AND PT WANTS TO GO BACK TO [place] AND RE ENROLL WITH [facility]. PT REPORTS ALL MEDICAL EQUIPMENT PROVIDED BY THE FACILITY, HE IS NOT UP AND OUT OF BED AT THE FACILITY. PT STATES THEY HAVE NOT BATHED HIM SINCE HE HAS BEEN AT [place] OR CHANGED HIS RODGERS CATHETER. PT REPORTS BEING IN [place] FOR 18 DAYS. PT STATES HE REPORTED THIS TO THE [facility] AND ALL HE DID WAS "COME OUT THERE AND SMILE AT ME." CHOICE SIGNED FOR [place] AND [facility]. PT DENIES DISCHARGE NEEDS AND WANTS TO GO BACK TO [place] TODAY. CM REVIEWED CHART AND CALLED [facility]ULT [facility], , PROVIDED REPORT OF EMERGENCY ROOM PHYSICIANS CONCERNS REGARDING [place], CASE #[id number]. CM CALLED [place] [facility], , SPOKE TO SYD WHO ADVISED THEY WILL ACCEPT PT BACK FOR AGRICULTURAL SPECIALIST CARE WITH HOSPICE TODAY. CM CALLED [facility], , SPOKE TO MARÍA WHO INFORMED CM THAT THEY WILL EVALUATE AND ADMIT AT THE [facility] TODAY. CM FAXED REFERRAL AND DISCHARGE INFORMATION TO [place] AT [phone] AND ALSO [facility] AT [phone]. NURSE REPORT TO BE CALLED TO [place] AT [phone], [facility] TO ADMIT AT THE FACILITY AFTER PT'S ARRIVAL. PT TO TRANSPORT VIA AMBULANCE. Tunnel Kiln Repairer: Broderick Yo DCPIA - Discharge Planning Initial Assessment Updated by [email or web address]: Broderick Yo on 05/11/19 11:20 am * Is the patient Alert and Oriented? Yes * How many steps to enter\\exit or inside your home? NONE * PCP DR. OSORIO BAILEY * Pharmacy [facility] * Preadmission Environment Alf Acute Care Facility * Facility Name [facility] * ADLs Partial Dependent * Partial ADLs (Assistance needed) Ambulation Bathing Dressing Medication Management Toileting Transfers * Equipment Other * Other Equipment ALL MEDICAL EQUIPMENT PROVIDED BY FACILITY * List name and contact numbers for known caregivers / representatives who currently or will assist patient after discharge: LILIAM DESAI, * Verbal permission to speak to the caregivers and representatives has been obtained from the patient. Yes * Community resources currently utilized None * Please name any agencies selected above. NONE * Additional services required to return to the preadmission environment? No * Can the patient safely return to the preadmission environment? Yes * Has this patient been hospitalized within the prior 30 days at any hospital? No Coverage Notice Reviewer: [email or web address] Notice Issued Date-Time: 05/11/2019 9:30 Notice Type: IM Discharge Notice Notice Delivered To: Patient Relationship to Patient: Litigation Counsel Name: Delivery Method: HAND - Hand Delivered Colette Days: Prior Verbal Notification: Recipient Understood Notice: Yes Recipient Signature: Yes Med Rec Note Co-signed by Attending: Coverage Notice Comment: Reviewer: RAKESH Yo Notice Issued Date-Time: 05/11/2019 9:30 Notice Type: Patient Choice Letter Notice Delivered To: Patient Relationship to Patient: Litigation Counsel Name: Delivery Method: HAND - Hand Delivered Colette Days: Prior Verbal Notification: Recipient Understood Notice: Yes Recipient Signature: Yes Med Rec Note Co-signed by Attending: Coverage Notice Comment: WILBER SAUNDERS Last DP export: 05/11/19 10:54 a Patient Name: MAKENZIE DESAI Page [phone] at 1647 All edits/amendments must be made on the electronic document DICTATION DATE: 05/11/191645 CODING SPECIALIST: OSMEL 05/11/191645 RPT#: [id number] DC DATE:05/11/19 STATUS: DIS IN [facility] [address] [place] [address] END OF REPORT
== END 2019-05-11 12:10 | disposition home health service (06) | DRG 602 ==
LOC: D.ER 11:56 → D.MS 14:13 → D.M2 05-08 17:26
PROVIDERS: Family Medicine; ADMIT Family Medicine; ATTEND Family Medicine
DX: L03.116 Cellulitis of left lower limb (principal); E43 Unspecified severe protein-calorie malnutrition; J18.9 Pneumonia, unspecified organism; J44.0 Chronic obstructive pulmonary disease with (acute) lower respiratory infection; I13.0 Hypertensive heart and chronic kidney disease with heart failure and stage 1 through stage 4 chronic kidney disease, or unspecified chronic kidney disease; I50.32 Chronic diastolic (congestive) heart failure; T74.01XA Adult neglect or abandonment, confirmed, initial encounter; L97.819 Non-pressure chronic ulcer of other part of right lower leg with unspecified severity; L97.829 Non-pressure chronic ulcer of other part of left lower leg with unspecified severity; N17.9 Acute kidney failure, unspecified; L03.115 Cellulitis of right lower limb; N18.9 Chronic kidney disease, unspecified; I48.91 Unspecified atrial fibrillation; Z68.34 Body mass index [BMI] 34.0-34.9, adult; K74.60 Unspecified cirrhosis of liver; I48.0 Paroxysmal atrial fibrillation; D50.9 Iron deficiency anemia, unspecified; E87.6 Hypokalemia; Z86.718 Personal history of other venous thrombosis and embolism